=== PATIENT | female | born 1950 | race Caucasian/White ===

== ENCOUNTER 2023-02-24 09:51 | Outpatient (RCR) | payer MEDICARE, SELFPAY | END 2023-09-25 08:00 | disposition home or self-care (01) | LOC: PT 09:51 | PROVIDERS: Visit Provider Orthopaedic Surgery Orthopaedic Trauma | DX: S86.012D Strain of left Achilles tendon, subsequent encounter (principal); G62.9 Polyneuropathy, unspecified | CPT/HCPCS: 97010; 97035; 97110; 97112; 97140; G0283 ==

== ENCOUNTER 2023-09-29 10:27 | Outpatient (OUT) | payer MEDICARE, SELFPAY ==
--- OUTSIDE RECORDS SUMMARY | 2023-09-29 10:35 | XMS_ITS | CCD ---
Author Name Unknown Address [address] [place] [address] Organization [facility] Care Team Providers Care Lead Painter Name Role Phone Jade Childs Unavailable ALIA ., DR TERRI Lawson Admitting Unavailable ROJO ., DR TERRI Lawson Attending Unavailable ROJO ., DR TERRI Lawson Consulting Unavailable ROJO ., DR TERRI Lawson Primary Care Unavailable ROJO ., DR TERRI Lawson Primary Care Unavailable JADE CHILDS Attending Unavailable JADE CHILDS Admitting Unavailable ROJO ., DR TERRI Lawson Primary Care Unavailable HAY ., DR GORMAN Admitting Unavailable HAY ., DR GORMAN Attending Unavailable HAY ., DR GORMAN Consulting Unavailable STRAWSER, TARAS Consulting Unavailable ROJO ., DR TERRI Lawson Admitting Unavailable ROJO ., DR TERRI Lawson Attending Unavailable ROJO ., DR TERRI Lawson Consulting Unavailable ROJO ., DR TERRI Lawson Primary Care Unavailable LUBNA, DR MANNY Mckeon Consulting Unavailable ROJO ., DR TERRI Lawson Admitting Unavailable ROJO ., DR TERRI Lawson Attending Unavailable ROJO ., DR TERRI Lawson Consulting Unavailable ROJO ., DR TERRI Lawson Primary Care Unavailable LUBNA, DR MANNY Mckeon Consulting Unavailable Ana Maria Glasgow Unavailable Deven Bronson Attending Unavailable TERRI ROJO Attending Unavailable Mary Escoto Attending Unavailable Deven Bronson Attending Unavailable Mary Escoto Attending Unavailable Allergies Allergy Classification Reported Allergen(s) Allergy Type Date of Onset Reaction(s) Facility (11 sources) Nalbuphine; Translations: [Nubain] Drug Allergy Unknown [facility] (9 sources) Sulfonamides (Antibiotic) Propensity to adverse reactions Unknown [employer] Other (1 source) bee venom Drug allergy (disorder) [facility] (2 sources) HYDROmorphone; Translations: [Dilaudid] Drug Allergy 07-16-20 [facility] (1 source) Sulfonamides (Antibiotic) Drug allergy (disorder) [facility] (1 source) celecoxib; Translations: [CeleBREX] Drug Allergy [facility] (1 source) Clarithromycin; Translations: [Biaxin] Drug Allergy [facility] (1 source) Nalbuphine; Translations: [nalbuphine] Drug Allergy [facility] (1 source) rofecoxib; Translations: [Vioxx] Drug Allergy [facility] (1 source) sulfabenzamide / Sulfacetamide / sulfathiazole; Translations: [Sulfabenzamide/Mortensen lfacetamide/Sulfat hiazole] Drug Allergy [facility] Medications Current Medications Medication Drug Class(es) Dates Sig (Normalized) Sig (Original) allopurinol 100 mg oral tablet (9 sources) Xanthine Oxidase Inhibitor take 1 tablet by mouth every twenty-four hours Allopurinol 100 MG 1 tablet Orally Once a day Active B12 Fast Dissolve 5000 MCG (8 sources) B12 Fast Dissolv e 5000 MCG as directed Orally Active celecoxib 100 mg oral capsule (3 sources) Nonsteroidal Anti-inflammatory Drug Start: 3 take 1 capsule by mouth every twelve hours CeleBREX 100 MG 1 capsule with food Orally bid for 30 days Mar, Active cyclobenzaprine hydrochloride 5 mg oral tablet (9 sources) Muscle Relaxant Start: 3 take 0.5-1 tablets by mouth every eight hours Cyclobenzaprine HCl 5 MG 1/2 to 1 tab Orally Every 8 hours for 14 days Nov, Active diclofenac sodium 0.01 mg/mg topical gel (4 sources) Nonsteroidal Anti-inflammatory Drug Start: 3 Diclofenac Sodium 1 % apply 1-2 grams to affected area Externally Four times a day for 30 days January, Active gabapentin 100 mg oral capsule (1 source) Anti-epileptic Agent Start: 3 take 1 capsule by mouth every eight hours Gabapentin 100 MG 1 capsule Orally three times a day for 30 days Aug, Active hydroCHLOROthiazide 25 mg / lisinopril 20 mg oral tablet (9 sources) Thiazide Diuretic, Angiotensin Converting Enzyme Inhibitor take 1 tablet by mouth every twenty-four hours Lisinopril-hydroCHL OROthiazide 20-25 MG 1 tablet Orally Once a day for 30 day(s) Active meloxicam 15 mg oral tablet (18 sources) Nonsteroidal Anti-inflammatory Drug Start: 9 take 1 tablet by mouth every twenty-four hours Meloxicam 15 MG 1 tablet Orally Once a day for 90 days Dec, Active metFORMIN hydrochloride 500 mg oral tablet (9 sources) Biguanide take 1 tablet by mouth every twenty-four hours metFORMIN HCl 500 MG 1 tablet with a meal Orally Once a day for 30 day(s) Active Multi For Her - (9 sources) Multi For Her - as directed Orally Active oxybutynin chloride 5 mg oral tablet (9 sources) Cholinergic Muscarinic Antagonist take 1 tablet by mouth every twenty-four hours oxyBUTYnin Chloride 5 MG 1 tablet Orally qd for 30 day(s) Active pantoprazole 40 mg delayed release oral tablet (9 sources) Proton Pump Inhibitor take 1 tablet by mouth every twenty-four hours Pantoprazole Sodium 40 MG 1 tablet Orally Once a day Active vitamin b12 5 mg disintegrating oral tablet (1 source) Vitamin B12 B12 Fast Dissolv e 5000 MCG as directed Orally Active Completed/Discontinued Medications Medication Drug Class(es) Dates Sig (Normalized) Sig (Original) acetaminophen 325 mg / oxyCODONE hydrochloride 5 mg oral tablet (9 sources) Opioid Agonist Start: 12-28-2018 take 1-2 tablets by mouth every four to six hours as needed Percocet 5-325 MG 1-2 tablet as needed Orally every 4-6 hrs for 7 days Dec, Not-Taking/PRN Aspir-81 81 MG (9 sources) take 1 tablet by mouth once daily as needed Aspir-81 81 MG 1 tablet Orally Once a day for 30 day(s) Not-Taking/PRN take 1 tablet by mouth once leticia y Aspir-81 81 MG 1 tablet Orally Once a day for 30 day(s) Not-Taking baclofen 5 mg oral tablet (5 sources) gamma-Aminobutyric Acid-ergic Agonist Start: 01-16-2019 take 1 tablet by mouth three times daily at mealtime as needed Baclofen 5 MG 1 tablet with food or milk Orally Three times a day prn Dec, Not-Taking ciprofloxacin 500 mg oral tablet (5 sources) Quinolone Antimicrobial take 1 tablet by mouth every twelve hours Cipro 500 MG 1 tablet Orally every 12 hrs for 10 day(s) Not-Taking psyllium 525 mg oral capsule (9 sources) take 2 capsules by mouth every eight hours Metamucil 0.52 GM 2 capsules with 8 ounces of liquid Orally Three times a day for 30 day(s) Not-Taking/PRN Metamucil 0.52 G M 2 capsules with 8 ounces of liquid Orally Three times a day for 30 day(s) Not-Taking Problems Active Problems Problem Classification Problem Date Documented Date Episodic/Chronic Diabetes mellitus with complications (1 source) Type 2 diabetes mellitus with unspecified complications; Translations: [TYPE 2 DM W/UNS COMPLICATIONS] Onset: 09-11-20 Chronic Diabetes mellitus without complication (1 source) Type 2 diabetes mellitus without complications; Translations: [TYPE 2 DM WITHOUT COMPLICATIONS] Onset: 11-22-19 Chronic Disorders of lipid metabolism (1 source) Pure hypercholesterolemia, unspecified; Translations: [PURE HYPERCHOLESTEROLEMIA UNSPEC] Onset: 09-11-20 Chronic E Codes: Natural/environment (1 source) Other and unspecified overexertion or strenuous movements or postures, initial encounter; Translations: [OTH AND UNS OVREXRT/STRN MVMT/POS INT] Onset: 11-22-19 Episodic Essential hypertension (1 source) Essential (primary) hypertension; Translations: [ESSENTIAL PRIMARY HYPERTENSION] Onset: 11-22-19 Chronic Menopausal disorders (1 source) Unspecified menopausal and perimenopausal disorder; Translations: [UNS MENOPAUSAL PERIMENOPAUSAL D/O] Onset: 01-14-20 Chronic Osteoarthritis (9 sources) Osteoarthritis of hip; Translations: [Unilateral primary osteoarthritis, left hip] Chronic Other aftercare (1 source) intermediate card tender (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) use of oral hypoglycemic drugs; Translations: [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 LUMBER USE ORAL HYPOGLYCEMIC DX] Onset: 11-22-19 Episodic Other aftercare (1 source) Other alf (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; Translations: [OTH LONG-TERM CURRENT DRUG THERAPY] Onset: 11-22-19 Episodic Other connective tissue disease (9 sources) History of repair of hip joint; Translations: [Presence of left artificial hip joint] Chronic Other connective tissue disease (9 sources) History of total hip arthroplasty; Translations: [Presence of left artificial hip joint] Chronic Other connective tissue disease (9 sources) History of total knee arthroplasty; Translations: [Presence of left artificial knee joint] Chronic Other connective tissue disease (4 sources) Achilles tendinitis, right leg Episodic Other gastrointestinal disorders (1 source) Irritable bowel syndrome without diarrhea; Translations: [IRRITABLE BOWEL SYND W/O DIARRHEA] Onset: 11-22-19 Chronic Other injuries and conditions due to external causes (1 source) Unspecified injury of left Achilles tendon, initial encounter; Translations: [UNS INJ LT ACHILLES TENDON INITIAL] Onset: 11-22-19 Episodic Other liver diseases (1 source) Fatty (change of) liver, not elsewhere classified; Translations: [FATTY CHANGE LIVER NEC] Onset: 11-22-19 Chronic Other liver diseases (1 source) Unspecified cirrhosis of liver; Translations: [UNSPECIFIED CIRRHOSIS OF LIVER] Onset: 11-22-19 Chronic Other nervous system disorders (3 sources) Neuropathy; Translations: [Polyneuropathy, unspecified] Chronic Other nervous system disorders (3 sources) Polyneuropathy, unspecified Chronic Other non-traumatic joint disorders (4 sources) Pain in left ankle and joints of left foot; Translations: [PAIN IN LEFT ANKLE] Onset: 11-21-19 Episodic Other nutritional; endocrine; and metabolic disorders (1 source) Metabolic syndrome; Translations: [METABOLIC SYNDROME] Onset: 11-22-19 Chronic Residual codes; unclassified (1 source) Obstructive sleep apnea (adult) (pediatric); Translations: [OBSTRUCTIVE SLEEP APNEA] Onset: 11-22-19 Chronic Residual codes; unclassified (1 source) Acquired absence of other specified parts of digestive tract; Translations: [ACQ ABSENCE OTH PART DIGESTV TRACT] Onset: 11-22-19 Episodic Rheumatoid arthritis and related disease (4 sources) Inflammatory polyarthropathy; Translations: [INFLAMMATORY POLYARTHROPATHY] Onset: 09-07-20 Chronic Sprains and strains (12 sources) Strain of right Achilles tendon, initial encounter; Translations: [Strain of left Achilles tendon, subsequent encounter] Onset: 12-30-19 Episodic Past or Other Problems Problem Classification Problem Date Documented Da te Episodic/Chronic Nonmalignant breast conditions (1 source) Unspecified lump in the left breast, upper inner quadrant; Translations: [UNS LUMP IN LT BREAST UPR INR QUAD] Onset: 01-14-2022 Episodic Other screening for suspected conditions (not mental disorders or infectious disease) (9 sources) Other abnormal and inconclusive findings on diagnostic imaging of breast; Translations: [Encounter for screening mammogram for malignant neoplasm of breast] Onset: 01-08-2022 Episodic Results Test Name Value Interpretation Reference Range Facil ity Pre-Visit Planningon 023 Pre-Visit Planning - From: Jodi Scott RN To: Deven Bronson MD; Sent: 07/29/2023 10:55:23 EDT Subject: Pre-Visit Planning Due Date/Time: 07/29/2023 10:55:00 EDT Caller Name: DAKSHA DELGADO; Caller Number: Wayne , M Ok Dr. Bronson, *Based on your response below, can you please update the chronic problem list and address during this visit if appropriate?* During a pre-visit planning chart review, I noted the following documentation in the medical record: Problem list- Diabetes mellitus type II, controlled, Pre-existing type 1 diabetes mellitus Based on your medical judgment, can you further clarify the following since there is conflicting data on if type 1 or type 2? -Type 2 diabetes mellitus -Type 1 diabetes mellitus -Other (please specify): I can update the problem list with your specified response if you would like. In responding to this request, please exercise your independent professional judgement. The fact that a question is asked does not imply that any particular answer is desired or expected. If you have any questions, please feel free to contact me at extension [phone]. Thank you! NICOLÁS ReddyN, RN, CCM, CCDS, CCDS-O From: Deven Bronson MD To: Jodi Scott RN; Sent: 08/01/2023 11:51:17 EST Subject: RE: Pre-Visit Planning Caller Name: DAKSHA DELGADO; Caller Number: Wayne , M Its type 2. Thank you Normal [address] [place] [address] Family Medicine Office/Clini c Noteon 07-04-2023 Family Medicine Office/Clinic Note Chief Complaint Subsequent Medicare Wellness History of Present Illness I was in the office and available for consultation and to provide direct supervision at the time of this visit. I have provided supervision of the care team and have reviewed this chart and office note and agree with the plan of care. Covid-19, MERS, Ebola Screen *Contact With Person With Highly Contagious Disease Like Ebola/MERS/COVID-19 AND Have One or More of the Symptoms Below : No *Travel to a Country With Wide-Spread Ebola/MERS/COVID-19 in the Past 21 Days AND Have One or More of the Symptoms Below : No Patient Reported Covid-19 Testing : No *Verify Droplet, Contact Precautions for Ebola (Reference for CDC) : N/A *Verify Airborne, Droplet Precautions for MERS/COVID-19 : N/A Fam Pedroza 06/29/2023 13:13 EDT Medicare/Medicaid Summary Systolic Blood Pressure : 120 mmHg Diastolic Blood Pressure : 84 mmHg Blood Pressure Location : Left arm Blood Pressure Position : Sitting O2 Sat Resting/Exertion Alpha : Resting Peripheral Pulse Rate : 92 bpm SpO2 : 95 % Fam Pedroza 06/29/2023 14:00 EDT Chief Complaint : Subsequent Medicare Wellness Patient Counseled : Nutrition, Physical activity, Elevated BMI Height/Length Measured : 165 cm(Converted to: 5 ft 5 in, 64.96 in) Weight Measured : 106.5 kg(Converted to: 234 lb 13 Ounces, 234.792 lb) Body Mass Index Measured : 39.12 kg/m2 Height in Inches : 65 in Weight in Pounds : 234.3 lb Waist Measurement : 114 cm(Converted to: 45 in) Pain Present : No actual or suspected pain Fam Pedroza 06/29/2023 13:13 EDT Hearing and Vision Screening FT FT Whisper Test Comments : No issues or concerns Fam Pedroza 06/29/2023 13:13 EDT Vision Screen Comments : wears corrective lenses for driving, follows with Fam Triana 06/29/2023 14:00 EDT Advance Directive FT Advance Directive : No Patient Wishes to Receive Further Information on Advance Directives : Yes Organ Donation Consent : No Fam Pedroza 06/29/2023 13:13 EDT Procedures / Surgeries FT - Procedure History (As Of: 06/29/2023 14:02:51 EDT) Procedure Dt/Tm: 03/20/2020 ; Provider: Medhat BOLANOS MD; Anesthesia Minutes: 0 ; Procedure Name: Cystoscopy and retrograde pyelography ; Procedure Minutes: 0 ; Comments: 03/20/2020 15:21 EDT - Delores RODRIGUEZ, [place] right ; Last Reviewed Dt/Tm: 06/29/2023 14:01:50 EDT Anesthesia Minutes: 0 ; Procedure Name: Total knee arthroplasty ; Procedure Minutes: 0 ; Comments: 03/20/2020 7:18 Leigh Ann Raya RN left ; Last Reviewed Dt/Tm: 06/29/2023 14:01:50 EDT Anesthesia Minutes: 0 ; Procedure Name: Total knee arthroplasty ; Procedure Minutes: 0 ; Comments: 03/20/2020 7:18 Leigh Ann Raya RN right ; Last Reviewed Dt/Tm: 06/29/2023 14:01:50 EDT Anesthesia Minutes: 0 ; Procedure Name: Tonsillectomy and adenoidectomy ; Procedure Minutes: 0 ; Last Reviewed Dt/Tm: 06/29/2023 14:01:50 EDT Anesthesia Minutes: 0 ; Procedure Name: Arthroplasty of the hip ; Procedure Minutes: 0 ; Comments: 03/20/2020 7:18 CESAR Gibson RN, Leigh Ann Asif left ; Last Reviewed Dt/Tm: 06/29/2023 14:01:50 EDT Anesthesia Minutes: 0 ; Procedure Name: H/O: tubal ligation ; Procedure Minutes: 0 ; Last Reviewed Dt/Tm: 06/29/2023 14:01:50 EDT Anesthesia Minutes: 0 ; Procedure Name: Appendectomy ; Procedure Minutes: 0 ; Last Reviewed Dt/Tm: 06/29/2023 14:01:50 EDT Anesthesia Minutes: 0 ; Procedure Name: Abdominal hysterectomy ; Procedure Minutes: 0 ; Last Reviewed Dt/Tm: 06/29/2023 14:01:50 EDT Anesthesia Minutes: 0 ; Procedure Name: Gall bladder ; Procedure Minutes: 0 ; Last Reviewed Dt/Tm: 06/29/2023 14:01:50 EDT Family History Family History (As Of: 06/29/2023 14:02:51 EDT) Brother: Relation: Brother ; Gender: Male ; Nomenclature: Aneurysm ; Value: Positive Father: Relation: Father ; Gender: Male ; Nomenclature: Hyperlipidemia ; Value: Positive Nomenclature: Stroke ; Value: Positive Nomenclature: Hypertension ; Value: Positive Mother: Relation: Mother ; Gender: Female ; Nomenclature: Stroke ; Value: Positive Nomenclature: Dementia ; Value: Positive Medicare/Medicaid Social History FT Social History (As Of: 06/29/2023 14:02:51 EDT) Alcohol: Denies Alcohol Use Comments: 06/29/2023 13:21 - Fam Pedroza: denies (Last Updated: 06/29/2023 13:21:29 EDT by Fam Pedroza) Tobacco: Denies Tobacco Use Never (less than 100 in lifetime) Tobacco Use:. Never Smokeless Tobacco Use:. (Last Updated: 02/02/2023 13:50:46 EDT by Shannon León LPN) Never (less than 100 in lifetime) Tobacco Use:. Household tobacco concerns: No. Comments: 06/29/2023 13:21 - Fam Pedroza: denies (Last Updated: 06/29/2023 13:21:46 EDT by Fam Pedroza) Substance Abuse: Denies Substance Abuse (Last Updated: 03/12/2020 13:21:06 EDT by Arlet RODRIGUEZ, [facility] ) Health Risk Assessment FT HRA little interest or pleasure? : No HRA down, de (more content not included)... [facility] Comment on above: Result Comment: Elec tronically Signed By: Deven Bronson MD\.br\Date and Time Signed: 07/04/23 19:09 EDT\.br\Electronically Co-Signed By: Fam Pedroza\.br\Date and Time Co-Signed: 06/29/23 16:02 EDT [place] 06-30-2023 Screens [id number] 00 [id number] [facility] Ambulatory Visit Summaryon 1 Ambulatory Visit Summary DAKSHA DELGADO Nat :1950 Visit Date:06/29/2023 Ambulatory Visit Instructions Your Diagnosis Annual visit for general adult medical examination without abnormal findings Advanced care planning/counseling discussion Acute DM type 2 causing complication Screening for ischemic heart disease (IHD) Screening mammogram for breast cancer Hypertension Other problems related to lifestyle Feeling of incomplete bladder emptying Morbid obesity due to excess calories BMI 39.0-39.9,adult Tests Performed MA Mamm Screen w/CAD if perf and 3D Cameron -- Results Pending -- Please visit your patient portal for your results or contact your primary care physician. Your Care Team Attending Physician - Mary Trotter Primary Care Physician - Mary Trotter This Is Your Medications List Misc Prescription (Blood pressure cuff-wrist) Misc Prescription (Misc DME Prescription) Misc Prescription (Misc DME Prescription) Misc Prescription (TEST STRIPS AND LANCETS) Non-Formulary Medication (equate sleep aid) allopurinol (allopurinol 100 mg Tab) ascorbic acid (ascorbic acid 1000 mg oral tablet) cyanocobalamin (cyanocobalamin 100 mcg oral tablet) glipiZIDE (glipiZIDE 5 mg Tab) lisinopril (lisinopril 20 mg Tab) meloxicam (meloxicam 15 mg Tab) metformin (metformin 500 mg Tab) oxybutynin (oxybutynin 5 mg ER Tab) pantoprazole (Pantoprazole [address] Tab) Procedures Performed Cystoscopy and retrograde pyelography (03/20/2020), Abdominal hysterectomy, Appendectomy, Arthroplasty of the hip, Gall bladder, H/O: tubal ligation, Tonsillectomy and adenoidectomy, Total knee arthroplasty, Total knee arthroplasty. Discharge Vitals Heart Rate (Peripheral) 92 Blood Pressure 120/84 Height 165 cm Height 65 in Weight 106.5 kg Weight 234.3 lb BMI 39.12 What to do next You Need to Complete the Following HCV Antibody RFX to Quant PCR, Blood, Routine collect, 06/29/23, Order for future visit, Lab Collect, Other problems related to lifestyle Invalid Interpretation Code Hypertension [facility] Ambulatory Visit Summary DAKSHA DELGADO :1950 Visit Date:06/29/2023 Ambulatory Visit Instructions Your Diagnosis Annual visit for general adult medical examination without abnormal findings Advanced care planning/counseling discussion Acute DM type 2 causing complication Screening for ischemic heart disease (IHD) Screening mammogram for breast cancer Hypertension Other problems related to lifestyle Feeling of incomplete bladder emptying Morbid obesity due to excess calories BMI 39.0-39.9,adult Tests Performed MA Mamm Screen w/CAD if perf and 3D Cameron -- Results Pending -- Please visit your patient portal for your results or contact your primary care physician. Your Care Team Attending Physician - Mary Trotter Primary Care Physician - Mary Trotter This Is Your Medications List Misc Prescription (Blood pressure cuff-wrist) Misc Prescription (Misc DME Prescription) Misc Prescription (Misc DME Prescription) Misc Prescription (TEST STRIPS AND LANCETS) Non-Formulary Medication (equate sleep aid) allopurinol (allopurinol 100 mg Tab) ascorbic acid (ascorbic acid 1000 mg oral tablet) cyanocobalamin (cyanocobalamin 100 mcg oral tablet) glipiZIDE (glipiZIDE 5 mg Tab) lisinopril (lisinopril 20 mg Tab) meloxicam (meloxicam 15 mg Tab) metformin (metformin 500 mg Tab) oxybutynin (oxybutynin 5 mg ER Tab) pantoprazole (Pantoprazole [address] Tab) Procedures Performed Cystoscopy and retrograde pyelography (03/20/2020), Abdominal hysterectomy, Appendectomy, Arthroplasty of the hip, Gall bladder, H/O: tubal ligation, Tonsillectomy and adenoidectomy, Total knee arthroplasty, Total knee arthroplasty. Discharge Vitals Heart Rate (Peripheral) 92 Blood Pressure 120/84 Height 165 cm Height 65 in Weight 106.5 kg Weight 234.3 lb BMI 39.12 What to do next You Need to Complete the Following HCV Antibody RFX to Quant PCR, Blood, Routine collect, 06/29/23, Order for future visit, Lab Collect, Other problems related to lifestyle Invalid Interpretation Code Hypertension [facility] Patient Educationon 06-29-20 Patient Education Cardiovascular Hypertension, Adult High blood pressure (hypertension) is when the force of blood pumping through the arteries is too strong. The arteries are the blood vessels that carry blood from the heart throughout the body. Hypertension forces the heart to work harder to pump blood and may cause arteries to become narrow or stiff. Untreated or uncontrolled hypertension can lead to a heart attack, heart failure, a stroke, kidney disease, and other problems. A blood pressure reading consists of a higher number over a lower number. Ideally, your blood pressure should be below 120/80. The first ( top ) number is called the systolic pressure. It is a measure of the pressure in your arteries as your heart beats. The second ( bottom ) number is called the diastolic pressure. It is a measure of the pressure in your arteries as the heart relaxes. What are the causes? The exact cause of this condition is not known. There are some conditions that result in high blood pressure. What increases the risk? Certain factors may make you more likely to develop high blood pressure. Some of these risk factors are under your control, including: ? Smoking. ? Not getting enough exercise or physical activity. ? Being overweight. ? Having too much fat, sugar, calories, or salt (sodium) in your diet. ? Drinking too much alcohol. Other risk factors include: ? Having a personal history of heart disease, diabetes, high cholesterol, or kidney disease. ? Stress. ? Having a family history of high blood pressure and high cholesterol. ? Having obstructive sleep apnea. ? Age. The risk increases with age. What are the signs or symptoms? High blood pressure may not cause symptoms. Very high blood pressure (hypertensive crisis) may cause: ? Headache. ? Fast or irregular heartbeats (palpitations). ? Shortness of breath. ? Nosebleed. ? Nausea and vomiting. ? Vision changes. ? Severe chest pain, dizziness, and seizures. How is this diagnosed? This condition is diagnosed by measuring your blood pressure while you are seated, with your arm resting on a flat surface, your legs uncrossed, and your feet flat on the floor. The cuff of the blood pressure monitor will be placed directly against the skin of your upper arm at the level of your heart. Blood pressure should be measured at least twice using the same arm. Certain conditions can cause a difference in blood pressure between your right and left arms. If you have a high blood pressure reading during one visit or you have normal blood pressure with other risk factors, you may be asked to: ? Return on a different day to have your blood pressure checked again. ? Monitor your blood pressure at home for 1 week or longer. If you are diagnosed with hypertension, you may have other blood or imaging tests to help your health care provider understand your overall risk for other conditions. How is this treated? This condition is treated by making healthy lifestyle changes, such as eating healthy foods, exercising more, and reducing your alcohol intake. You may be referred for counseling on a healthy diet and physical activity. Your health care provider may prescribe medicine if lifestyle changes are not enough to get your blood pressure under control and if: ? Your systolic blood pressure is above 130. ? Your diastolic blood pressure is above 80. Your personal target blood pressure may vary depending on your medical conditions, your age, and other factors. Follow these instructions at home: Eating and drinking ? Eat a diet that is high in fiber and potassium, and low in sodium, added sugar, and fat. An example of this eating plan is called the DASH diet. DASH stands for Dietary Approaches to Stop Hypertension. To eat this way: ? Eat plenty of fresh fruits and vegetables. Try to fill one half of your plate at each meal with fruits and vegetables. ? Eat whole grains, such as whole-wheat pasta, brown rice, or whole-grain bread. Fill about one fourth of your plate with whole grains. ? Eat or drink low-fat dairy products, such as skim milk or low-fat yogurt. ? Avoid fatty cuts of meat, processed or cured meats, and poultry with skin. Fill about one fourth of your plate with lean proteins, such as fish, chicken without skin, beans, eggs, or tofu. ? Avoid pre-made and processed foods. These tend to be higher in sodium, added sugar, and fat. ? Reduce your daily sodium intake. Many people with hypertension should eat less than 1,500 mg of sodium a day. ? Do not drink alcohol if: ? Your health care provider tells you not to drink. ? You are , may be , or are planning to become . ? If you drink alcohol: ? Limit how much you have to: ? 0?1 drink a day for women. ? 0?2 drinks a day for men. ? Know how much alcohol is in your drink. In the [place] one drink equals one 12 oz bottle of beer (355 mL), one 5 oz glass of wine (148 mL), or one 1? oz glass (more content not included)... [facility] Retail - Clinical Noteon Retail - Clinical Note [id number] 0CD:127 [facility] Physician Referralon 023 Physician Referral [id number]. 00CD:127 Normal [place] [facility] Ambulatory Visit Summaryon 0 02-02-2023 Ambulatory Visit Summary DAKSHA DELGADO :1950 Visit Date:02/02/2023 Ambulatory Visit Instructions Your Diagnosis Acute DM type 2 causing complication Hypertension VOGEL (nonalcoholic steatohepatitis) Adhesive capsulitis of left shoulder Your Care Team Attending Physician - TERRI ROJO MD Primary Care Physician - TERRI ROJO MD This Is Your Medications List Misc Prescription (Blood pressure cuff-wrist) Misc Prescription (Misc DME Prescription) Misc Prescription (Misc DME Prescription) Non-Formulary Medication (equate sleep aid) allopurinol (allopurinol 100 mg Tab) ascorbic acid (Vitamin C 1000 mg oral tablet) cyanocobalamin (Vitamin B12) lisinopril (lisinopril 20 mg Tab) meloxicam (meloxicam 15 mg Tab) metformin (metformin 500 mg Tab) multivitamin with minerals (Multivitamins and Minerals) oxybutynin (oxybutynin 5 mg ER Tab) pantoprazole (Pantoprazole [address] Tab) [Image Removed: STOP]Stop taking these medications aspirin (aspirin 81 mg oral tablet) Procedures Performed Cystoscopy and retrograde pyelography (03/20/2020), Abdominal hysterectomy, Appendectomy, Arthroplasty of the hip, H/O: tubal ligation, Tonsillectomy and adenoidectomy, Total knee arthroplasty, Total knee arthroplasty. Discharge Vitals Heart Rate (Peripheral) 107 Respiratory Rate 20 Blood Pressure 170/96 Height 167.64 cm Height 66 in Weight 111.4 kg Weight 245.08 lb BMI 39.64 What to do next Someone Will Contact You Regarding These Appointments [facility] [place], Orthopaedics, DR JACKIE BENÍTEZ FROZEN SHOULDER, 02/02/23 14:46:00 EDT, Adhesive capsulitis of left shoulder Medications What How Much When Instructions Changed allopurinol (allopurinol 100 mg Tab) 1 Tablets By Mouth Every day Pickup at [facility] Unchanged ascorbic acid (Vitamin C 1000 mg oral tablet) 1 Tablets By Mouth Every day Unchanged cyanocobalamin (Vitamin B12) 1 tab By Mouth Every day Unchanged lisinopril (lisinopril 20 mg Tab) 1 Tablets By Mouth 2 times a day Unchanged meloxicam (meloxicam 15 mg Tab) 1 Tablets By Mouth Every day Unchanged metformin (metformin 500 mg Tab) 1 Tablets By Mouth Every day Unchanged Misc Prescription (Blood pressure cuff-wrist) See instructions As Directed-Check blood pressure 1-2 hours after taking BP medication. Unchanged Misc Prescription (Misc DME Prescription) See instructions unilet lancets use to test blood sugars once a day Unchanged Misc Prescription (Misc DME Prescription) See instructions unilet test strips Test once a day Dx E 11.8 Unchanged multivitamin with minerals (Multivitamins and Minerals) 1 tab By Mouth Every day Unchanged Non-Formulary Medication (equate sleep aid) 1 tab By Mouth Every day as needed for Insomnia Unchanged oxybutynin (oxybutynin 5 mg ER Tab) 1 Tablets By Mouth Every day Unchanged pantoprazole (Pantoprazole [address] Tab) 1 Tablets By Mouth 2 times a day Pharmacy Information [id number]: [address] [place], [place] [id number] [phone] What When Comments Stop Taking aspirin (aspirin 81 mg oral tablet) Every day Allergies Sulfabenzamide/Sulface tamide/Sulfathiazole (Unknown) nalbuphine (Unknown) Problems Ongoing - Any problem that you are currently receiving treatment for. Anticoagulated Asymptomatic microscopic hematuria Back pain BMI 39.0-39.9,adult Body mass index [BMI] 30.0-30.9, adult Class 1 obesity due to excess calories with body mass index (BMI) of 30.0 to 30.9 in adult Dysuria Feeling of incomplete bladder emptying Frequency of urination Kidney stone Lower abdominal pain Microscopic hematuria Other urethral stricture, female Post-void dribbling Retention of urine Urge incontinence Urgency of urination Weak urine stream Historical - Any problem that you are no longer receiving treatment for. Abdominal tenderness Flank pain Gross hematuria HTN - Hypertension Incomplete bladder emptying Normal [facility] Family Medicine Office/Clini c Noteon 02-02-2023 Family Medicine Office/Clinic Note Chief Complaint med refills and doesn't feel well hurts all over HPI Staff Follow up chronic conditions and meds check Health Maintenance: Colonoscopy: 5 years ago Dexa: 01/08/22 Mammo: 01/08/22 Pap: no longer gets them Last Labs: 09/07/22 covid: UTD questions/concerns: nneds refills of lancets, test strips, pantoprazole, allopurinol, meloxicam,lisinopril oxybutynin, glipizide and metformin all 90 days and 3 refills Just hurts all over and doesn't feel well History of Present Illness BAD HEADACHE SINCE LAST NIGHT ABND SORE NECK. TYLBEOL NO HELP. `HTN DIVERTICULAR DISEASE VOGEL ARTHRITIS NIDDM CHRON'S DX Review of Systems PHQ Score Initial Depression Screen Score: 0 Constitutional: no fever, no chills, no sweats, no weakness Skin: no Jaundice, no rash, no lesions, nopetechiae ENMT: no ear pain, no sore throat, no congestion, no hoarseness Respiratory: no shortness of breath, no cough, no orthopnea, no wheezing Cardiovascular: no chest pain, no palpitations, no edema Gastrointestinal: no nausea, no vomiting, no diarrhea, no GI bleeding Genitourinary: no dysuria, no hematuria, no discharge, no pain Musculoskeletal: no back pain, no trauma severe headache Neurologic: no headache, no dizziness, no numbness, no weakness Psychiatric: no sleeping problems, no irritability, no mood swings/depression. Additional ROS info: Except as noted in the above Review of Systems and in the History of Present Illness all other systems have been reviewed and are negative or noncontributory. Physical Exam Vitals & Measurements HR: 107(Peripheral) RR: 20 BP: 170/96 SpO2: 98% HT: 66 in HT: 167.64 cm WT: 111.4 kg WT: 245.08 lb BMI: 39.64 General: alert, no acute distress Skin: warm, dry Head: no trauma, normocephalic Neck: Trachea midline, no adenopathy, no tenderness Eye: normal conjunctiva, sclera clear ENMT: TM's clear, oral mucosa moist, no pharyngeal erythema or exudate Cardiovascular: regular rate and rhythm, normal peripheral perfusion Respiratory: Lungs CTA, respirations non labored Chest wall: no deformity. Gastrointestinal: soft, non distended, no tenderness, no guarding. Back: No tenderness, Normal ROM, Normal alignment. Extremities: no deformity, no trauma frozen shoulder on left Neurological: oriented x 4, LOC appropriate for age, CN II-XII intact, motor strength equal & normal bilaterally, sensation equal & normal bilaterally, speech normal Psychiatric: cooperative, affect appropriate for age, normal judgement, normal psychiatric thoughts. Assessment/Plan refer to dr MEJIA FOR FROZEN LEFT SHOULDER. DIET AND EXERCISE EXPLAINED ROM EXERCISE FOR SHOULDER EXPLAINED. MEDS REVIEWED AND EXPLAINED. PREVENTIVE MEDICINE EXPLAINED HEAT AND STRETCHING FOR NECK PAIN DIET AND EXERCISE FOR VOGEL EXPLAINED RTO PRN EXPLAINBED 1. Acute DM type 2 causing complication (E11.8: Type 2 diabetes mellitus with unspecified complications) Ordered: CBC w/ Auto Diff Comprehensive Metabolic Panel HgbA1c 2. Hypertension (I10: Essential (primary) hypertension) Ordered: CBC w/ Auto Diff Comprehensive Metabolic Panel HgbA1c 3. VGOEL (nonalcoholic steatohepatitis) (K75.81: Nonalcoholic steatohepatitis (VOGEL)) Ordered: CBC w/ Auto Diff Comprehensive Metabolic Panel HgbA1c Adhesive capsulitis of left shoulder (M75.02: Adhesive capsulitis of left shoulder) Ordered: [facility] [place] Ref[place] Orders: allopurinol, 100 mg = 1 tab(s), Oral, Daily, # 90 tab(s), Refills(s) 3, Pharmacy: [id number], 167.6, cm, 02/02/23 13:51:00 EDT, Height/Length Dosing, 111.4, kg, 02/02/23 13:51:00 EDT, Weight Dosing Body Mass Index (BMI) documented 3008F Current tobacco non-user 1036F Depression Screening Positive 3354F Influenza immunization status assessed 1030F Most recent diastolic blood pressure >=90 mm Hg 3080F Most recent systolic blood pressure >= 140 mm Hg 3077F Patient screen for fall risk: no falls in last year or 1 fall with no injury in last year 1101F Follow-up No qualifying data available Problem List/Past Medical History Ongoing Anticoagulated Asymptomatic microscopic hematuria Back pain BMI 39.0-39.9,adult Body mass index [BMI] 30.0-30.9, adult Class 1 obesity due to excess calories with body mass index (BMI) of 30.0 to 30.9 in adult Dysuria Feeling of incomplete bladder emptying Frequency of urination Kidney stone Lower abdominal pain Microscopic hematuria Other urethral stricture, female Post-void dribbling Retention of urine Urge incontinence Urgency of urination Weak urine stream Historical Abdominal tenderness Flank pain Gross hematuria HTN - Hypertension Incomplete bladder emptying Procedure/Surgical History Cystoscopy and retrograde pyelography (03/20/2020), Abdominal hysterectomy, Appendectomy, Arthroplasty of the hip, H/O: tubal ligation, Tonsillectomy and adenoidectomy, Total knee arthrop (more content not included)... Normal [facility] Comment on above: Result Comment: Elec tronically Signed By: ALIA BIGGS, TERRI Dewitt.rosalva\Date and Time Signed: 02/02/23 14:51 EDT XR FOOT LT MIN 3 VIEWSon XR FOOT LT MIN 3 VIEWS XR FOOT LT MIN 3 VIEWS: HISTORY: Pain in left foot Pain in left foot COMPARISON: None available. TECHNIQUE: 3 radiographic view(s) obtained. FINDINGS: BONES/JOINT SPACES: There is no acute fracture or dislocation. There is moderate degenerative osteoarthrosis of the first metatarsophalangeal joint. There is moderate calcaneal spurring and enthesopathy at the insertion of the Achilles tendon. SOFT TISSUES: There is some soft tissue swelling. IMPRESSION: Soft tissue swelling without a definitive acute fracture. Electronically authenticated by: TARAS WILEY Date: 2022-11-21 01:[address] [facility] MARQUEZ by IFAon 09-09-2022 Antinuclear Antibodies, IFA Negative Normal [facility] Comment on above: Result Comment: Nega tive <1:80 Borderline 1:80 Positive >1:80 ICAP nomenclature: AC-0 For more information about Hep-2 cell patterns use ANApatterns.org, the official website for the International Consensus on Antinuclear Antibody (MARQUEZ) Patterns (ICAP). Performed By: #### A NAIFA ####[facility] [address] [place], [place] [address]BsDr. Marcella Cortes ANTISTREPTOLYSIN O AB (ASO)o n 09-08-2022 Antistreptolysin O Ab 104.5 IU/mL Normal 0.0-200.0 [facility] Comment on above: Performed By: #### A SOAB #### [facility] [address] [place], [place] [address] Dr. Marcella Cortes RHEUMATOID FACTORon 09-08-20 RA Latex Turbid. <10.0 Normal <14.0 [facility] Comment on above: Performed By: #### R F #### [facility] [address] [place] [address] [address] Marcella Cortes CBC AUTO DIFFon 09-07-2022 BASO # 0.0 103/ul Normal 0.0-0.1 [facility] Comment on above: Performed By: #### C BC ####[facility] [address] [place] [address]Dr. Marcella Cortes Basophils/100 WBC (Bld) 0.5 % Normal 0.2-2.0 [facility] Comment on above: Performed By: #### C BC ####[facility] [address] [place] [address]Dr. Marcella Cortes EO # 0.1 103/ul Normal 0.0-0.7 [facility] Comment on above: Performed By: #### C BC ####[facility] [address] [place], [place] [address]Dr. Marcella Cortes Eosinophils/100 WBC (Bld) 1.4 % Normal 0.9-7.0 [facility] Comment on above: Performed By: #### C BC ####[facility] [address] [place], [place] [address]Dr. Marcella Cortes Erythrocyte distribution width (RBC) [Ratio] 12.6 % Normal 11.0-15.0 [facility] Comment on above: Performed By: #### C BC ####[facility] [address] [place], [place] [address]Dr. Marcella Cortes Hematocrit (Bld) [Volume fraction] 37.1 % Normal 36.0-48.0 [facility] Comment on above: Performed By: #### C BC ####[facility] [address] [place], [place] [address]DrPastora Cortes Hemoglobin (Bld) [Mass/Vol] 12.4 g/dL Normal 12.0-16.0 [facility] Comment on above: Performed By: #### C BC ####[facility] [address] [place], [place] [address]Dr. Marcella Cortes IG # 0.03 10e3/ul Normal 0.00-0.03 [facility] Comment on above: Performed By: #### C BC ####[facility] [address] [place] [address]DrPastora Marcella Cortes IG % 0.5 % Normal 0.0-0.5 [facility] Comment on above: Performed By: #### C BC ####[facility] [address] [place], [place] [address]DrPastora Marcella Cortes LYMPH # 2.4 103/ul Normal 1.2-3.8 [facility] Comment on above: Performed By: #### C BC ####[facility] [address] [place], [place] [address]DrPastora Marcella Cortes Lymphocytes/100 WBC (Bld) 36.2 % Normal 20.5-60.0 [facility] Comment on above: Performed By: #### C BC ####[facility] [address] [place], [place] [address]DrPastora Marcella Cortes MANUAL DIFF REQ NO Normal [facility] Comment on above: Performed By: #### C BC ####[facility] [address] [place], [place] [address]DrPastora Marcella Cortes MCH (RBC) [Entitic mass] 30.3 pg Normal 26.7-34.0 [facility] Comment on above: Performed By: #### C BC ####[facility] [address] [place], [place] [address]Dr. Marcella Cortes MCHC (RBC) [Mass/Vol] 33.4 g/dL Normal 29.9-35.2 [facility] Comment on above: Performed By: #### C BC ####[facility] [address] [place], [place] [address]DrPastora Marcella Cortes MCV (RBC) [Entitic vol] 90.7 fL Normal 81.0-99.0 [facility] Comment on above: Performed By: #### C BC ####[facility] [address] [place], [place] [address]DrPastora Marcella Sebastian MONO # 0.4 103/ul Normal 0.3-0.8 [facility] Comment on above: Performed By: #### C BC ####[facility] [address] [place] [id number]. Marcella Cortes Monocytes/100 WBC (Bld) 5.9 % Normal 1.7-12.0 [facility] Comment on above: Performed By: #### C BC ####[facility] [address] [place] [id number]. Marcella Cortes NEUT # 3.7 103/ul Normal 1.4-6.5 [facility] Comment on above: Performed By: #### C BC ####[facility] [address] [place] [address]Dr. Marcella Cortes Neutrophils/100 WBC (Bld) 55.5 % Normal 43.0-75.0 [facility] Comment on above: Performed By: #### C BC ####[facility] [address] [place] [address]Dr. Marcella Cortes Platelet mean volume (Bld) [Entitic vol] 8.7 fL Critically low 9.5-13.5 [facility] Comment on above: Performed By: #### C BC ####[facility] [address] [place] [address]Dr. Marcella Cortes PLT 224 103/ul Normal 150-450 [facility] Comment on above: Performed By: #### C BC ####[facility] [address] [place] [id number]. Marcella Cortes RBC 4.09 106/ul Critically low 4.20-5.40 [facility] Comment on above: Performed By: #### C BC ####[facility] [address] [place] [id number]. Marcella Cortes WBC 6.7 103/ul Normal 4.0-11.0 [facility] Comment on above: Performed By: #### C BC ####[facility] [address] [place] [id number]. Marcella Cortes CRPon 09-07-2022 CRP 0.7 mg/dL Normal <=1.0 [facility] Comment on above: Performed By: #### C RP, URIC, LIPID, CMP #### [facility] [address] [place] [address] [address] Marcella Cortes GLYCOHEMOGLOBIN A1Con 2021 ADA RECOMMENDATION SEE BELOW Normal [facility] Comment on above: Result Comment: ADA RECOMMENDED LIMIT 4.0 - 6.0 ADA THERAPEUTIC TARGET < 7.0 ACTION SUGGESTED > 7.0 Performed By: #### A 1C ####[facility] [address] [place], [place] [address]MvDr. Marcella Cortes Glucose [Mass/Vol] 186 mg/dL Normal [facility] Comment on above: Performed By: #### A 1C ####[facility] [address] [place] [address]Dr. Marcella Cortes HbA1c (Bld) [Mass fraction] 8.1 % Critically high 4.5-6.2 [facility] Comment on above: Performed By: #### A 1C ####[facility] [address] [place] [address]Dr. Marcella Cortes LIPID PROFILEon 09-07-2022 CHOL-HDL RATIO NORM SEE BELOW Normal [facility] Comment on above: Result Comment: 3.3 - 4.4 LOW RISK 4.4 - 7.1 AVERAGE RISK 7.1 - 11.0 MODERATE RISK >11.0 HIGH RISK Performed By: #### C RP, URIC, LIPID, CMP #### [facility] [address] [place] [address] [address] Marcella Cortes Cholesterol [Mass/Vol] 187 mg/dL Normal <=200 [facility] Comment on above: Performed By: #### C RP, URIC, LIPID, CMP #### [facility] [address] [place] [address] [address] Marcella Cortes Cholesterol in HDL [Mass/Vol] 44 mg/dL Normal 40-60 [facility] Comment on above: Performed By: #### C RP, URIC, LIPID, CMP #### [facility] [address] [place] [address] [address] Marcella Cortes Cholesterol in LDL [Mass/Vol] 97.0 mg/dL Normal [facility] Comment on above: Performed By: #### C RP, URIC, LIPID, CMP #### [facility] [address] [place] [address] [address] Marcella Cortes Cholesterol.total/Ch olesterol in HDL [Mass ratio] 4.3 {ratio} Normal [facility] Comment on above: Performed By: #### C RP, URIC, LIPID, CMP #### [facility] [address] [place] [address] [address] Marcella Cortes HDL NORMAL > or = 60 mg/dl - LO W CARDIOVASCULAR RISK <40 mg/dl - HIGH CARDIOVASCULAR RISK Normal [facility] Comment on above: Performed By: #### C RP, URIC, LIPID, CMP #### [facility] [address] [place] [address] [address] Marcella Cortes LDL CALC NORMAL SEE BELOW Normal [facility] Comment on above: Result Comment: <100 mg/dl OPTIMAL 100 - 129 mg/dl NEAR OR ABOVE OPTIMAL 130 - 159 mg/dl BORDERLINE HIGH 160 - 189 mg/dl HIGH >190 mg/dl VERY HIGH Performed By: #### C RP, URIC, LIPID, CMP #### [facility] [address] [place] [address] [address] Marcella Cortes Triglyceride [Mass/Vol] 230 mg/dL Critically high <=150 [facility] Comment on above: Performed By: #### C RP, URIC, LIPID, CMP #### [facility] [address] [place] [address] [address] Marcella Cortes VLDL CALC 46.0 mg/dL Normal [facility] Comment on above: Performed By: #### C RP, URIC, LIPID, CMP #### [facility] [address] [place] [address] Dr. Marcella Cortes PROF 14(COMP METB)on 022 Albumin [Mass/Vol] 3.8 g/dL Normal 3.4-5.0 [facility] Comment on above: Performed By: #### C RP, URIC, LIPID, CMP #### [facility] [address] [place] [address] Dr. Marcella Cortes Albumin/Globulin [Mass ratio] 0.9 {ratio} Normal [facility] Comment on above: Performed By: #### C RP, URIC, LIPID, CMP #### [facility] [address] [place] [address] Dr. Marcella Cortes ALP [Catalytic activity/Vol] 46 U/L Normal 46-116 [facility] Comment on above: Performed By: #### C RP, URIC, LIPID, CMP #### [facility] [address] [place] [address] Dr. Marcella Cortes ALT [Catalytic activity/Vol] 29 U/L Normal 14-59 [facility] Comment on above: Performed By: #### C RP, URIC, LIPID, CMP #### [facility] [address] [place] [address] Dr. Marcella Cortes Anion gap [Moles/Vol] 16.2 mmol/L Normal [facility] Comment on above: Performed By: #### C RP, URIC, LIPID, CMP #### [facility] [address] [place] [address] Dr. Marcella Cortes AST [Catalytic activity/Vol] 20 U/L Normal 15-37 [facility] Comment on above: Performed By: #### C RP, URIC, LIPID, CMP #### [facility] [address] [place] [address] Dr. Marcella Cortes Bilirubin [Mass/Vol] 0.4 mg/dL Normal 0.2-1.0 [facility] Comment on above: Performed By: #### C RP, URIC, LIPID, CMP #### [facility] [address] [place] [address] Dr. Marcella Cortes Calcium [Mass/Vol] 9.2 mg/dL Normal 8.5-10.1 [facility] Comment on above: Performed By: #### C RP, URIC, LIPID, CMP #### [facility] [address] [place] [address] Dr. Marcella Cortes Chloride [Moles/Vol] 98 mmol/L Normal 98-107 [facility] Comment on above: Performed By: #### C RP, URIC, LIPID, CMP #### [facility] [address] [place] [address] [address] Marcella Cortes CO2 [Moles/Vol] 26.1 mmol/L Normal 21.0-32.0 [facility] Comment on above: Performed By: #### C RP, URIC, LIPID, CMP #### [facility] [address] [place] [address] Dr. Marcella Cortes Creatinine [Mass/Vol] 0.84 mg/dL Normal 0.55-1.02 [facility] Comment on above: Performed By: #### C RP, URIC, LIPID, CMP #### [facility] [address] [place] [address] [address] Marcella Cortes EGFR-AF PORTUGUESE >60 Normal >=60 [facility] Comment on above: Performed By: #### C RP, URIC, LIPID, CMP #### [facility] [address] [place] [address] Dr. Marcella Cortes EGFR-NON AF PORTUGUESE >60 Normal >=60 [facility] Comment on above: Performed By: #### C RP, URIC, LIPID, CMP #### [facility] [address] [place] [address] Dr. Marcella Cortes Globulin (S) [Mass/Vol] 4.0 g/dL Normal [facility] Comment on above: Performed By: #### C RP, URIC, LIPID, CMP #### [facility] [address] [place] [address] Dr. Marcella Cortes Glucose [Mass/Vol] 163 mg/dL Critically high 74-106 [facility] Comment on above: Performed By: #### C RP, URIC, LIPID, CMP #### [facility] [address] [place] [address] Dr. Marcella Cortes Potassium [Moles/Vol] 4.3 mmol/L Normal 3.5-5.1 [facility] Comment on above: Performed By: #### C RP, URIC, LIPID, CMP #### [facility] [address] [place] [address] Dr. Marcella Cortes Protein [Mass/Vol] 7.8 g/dL Normal 6.4-8.2 [facility] Comment on above: Performed By: #### C RP, URIC, LIPID, CMP #### [facility] [address] [address] [address] Marcella Cortes Sodium [Moles/Vol] 136 mmol/L Normal 136-145 [facility] Comment on above: Performed By: #### C RP, URIC, LIPID, CMP #### [facility] [address] [address] [address] Marcella Cortes Urea nitrogen [Mass/Vol] 15.0 mg/dL Normal 7.0-18.0 [facility] Comment on above: Performed By: #### C RP, URIC, LIPID, CMP #### [facility] [address] [address] [address] Marcella Cortes Urea nitrogen/Creatinine [Mass ratio] 17.9 mg/mg Normal [facility] Comment on above: Performed By: #### C RP, URIC, LIPID, CMP #### [facility] [address] [place] [address] Dr. Marcella Cortes URIC ACID SERUMon 09-07-2022 Urate [Mass/Vol] 7.4 mg/dL Critically high 2.6-6.0 [facility] Comment on above: Performed By: #### C RP, URIC, LIPID, CMP #### [facility] [address] [place] [address] CARDIAC SCORINGon 022 CT CARDIAC SCORING Addendum Begins Patient Name: DAKSHA DELGADO ADDENDUM: Technical: The following is to serve as an over-read for an unenhanced cardiac CT, to evaluate the extra vascular structures. Contiguous unenhanced CT sections are performed from the level the pranav to the upper abdomen. Findings: The visualized portions of both lungs are clear aside from linear atelectasis in the anterior lower lobes.. There is no sign of pathologic lymph node enlargement. There is no pericardial or pleural effusion. Images through the upper abdomen are unremarkable aside from fatty metamorphosis of the liver. There is a 2 mm calcified granuloma in the spleen superiorly.. The visualized osseous and soft tissue structures of the chest wall are intact. Impression: Fatty metamorphosis of the liver. Linear bibasilar atelectasis. The extra vascular structures are otherwise unremarkable. Electronically signed by: MACO LUNA MD Addendum Ends Patient Name: DAKSHA DELGADO STUDY: CT CARDIAC SCORING; 03/17/2022 3:13 pm INDICATION: I10 Essential (primary) hypertension E11.8 Type 2 diabetes mellitus with unspecified complications . COMPARISON: None. ACCESSION NUMBER(S): [id number] ORDERING CLINICIAN: TERRI ROJO TECHNIQUE: Using prospective ECG gating, CT scan of the coronary arteries was performed without intravenous contrast. Coronary calcium scoring was performed according to the method of Agatston. CT Dose-Length Product (DLP): 75.8 mGy*cm CT Dose Reduction Employed: Yes, prospective gating, iterative reconstruction. FINDINGS: The score and distribution of calcium in the coronary arteries is as follows: LM 0 LAD 80 LCx 0 RCA 31 Total 111 The visualized ascending thoracic aorta measures 3.9 cm in diameter. The heart is normal in size. No pericardial effusion is present. The main pulmonary artery, right and left pulmonary artery are normal in size. IMPRESSION: 1. Coronary artery calcium score of 111*. 2. MANZO 71st percentile for age, gender, and race in asymptomatic patients. *Coronary Artery Agatston score Score risk Very low 1-99 Mildly increased 100-299 Moderately increased >300 Moderate to severely increased >800 Sanna et al. JCCT 2016 (http://dx.doi.org/10. 1016/j.jcct.2016.11.00 3) MANZO Percentile In general, greater than 75th percentile for age, gender, and race is considered to be a higher relative risk and higher lifetime risk condition. Greater than 75th percentile=moderate to severely increased relative risk irrespective of the score. Advise using MANZO 10 year CHD risk calculator below for better discrimination of risk. MANZO 10-Year CHD Risk with Coronary Artery Calcification can be calcuate using link below https://www.manzo-nhlbi .org/MESACHDRisk/MesaR iskScore/RiskScore.asp x Logan agarwal al. JACC 2015 (http://dx.doi.org/10. 1016/j.j acc.2015.08.035) Reading Robot Operator: Dr. Jewel Vincent, Date: 03/18/2022 10:08 am Electronically signed by: MACO LUNA MD Normal [facility] US BREAST LEFT LIMITEDon US BREAST LEFT LIMITED Patient: DAKSHA DELGADO. Exam Date: 01/13/2022 : 1950 Gender:F Ordering : DR TERRI ROJO . Admission #: [id number] Family : Order #: [id number] CLICK HERE TO VIEW EXAM RADIOLOGY REPORT PROCEDURE: ULTRASOUND BREAST LEFT LIMITED COMPARISON: MG MAMM SCREEN CAMERON W CAD, 05/30/2019. MG MAMM SCREEN 3D CAMERON CAD, 01/08/2022. INDICATIONS: Mammographic breast mass TECHNIQUE: Breast ultrasound was performed, with evaluation focusing only on specific areas of concern. FINDINGS: DIAGNOSTIC CATEGORY 3--PROBABLY BENIGN FINDING. THE FOLLOWING FINDING(S) HAS A HIGH PROBABILITY OF A BENIGN ETIOLOGY: LEFT BREAST: 9 x 5 x 5 mm anechoic structure at the 10 o'clock position, 2.7 cm from the nipple, felt to correspond to the mammographic findings. This appears to represent a benign cyst, but follow-up ultrasound evaluation in 6 months is recommended to document stability. RECOMMENDATIONS: SHORT TERM FOLLOW-UP ULTRASOUND LEFT BREAST IN 6 MONTHS. PLEASE NOTE: A NORMAL ULTRASOUND EXAMINATION DOES NOT EXCLUDE THE POSSIBILITY OF BREAST CANCER. A CLINICALLY SUSPICIOUS PALPABLE LUMP SHOULD BE BIOPSIED. Dictated by: Manny Forde M.D. on 01/13/2022 at 10:49 Approved by: Manny Forde M.D. on 01/13/2022 at 10:[address] [facility] MG MAMM SCREEN 3D CAMERON CADon 01-08-2022 MG MAMM SCREEN 3D CAMERON CAD Patient: DAKSHA DELGADO Exam Date: 01/08/2022 : 1950 Gender:F Ordering : DR TERRI ROJO . Admission #: [id number] Family : Order #: [id number] CLICK HERE TO VIEW EXAM RADIOLOGY REPORT PROCEDURE: MAMMOGRAM SCREENING 3D BILATERAL CAD COMPARISON: MG MAMM SCREEN CAMERON W CAD, 05/24/2018. MG MAMM CAMERON SCRN W CAD DIG, 05/03/2016. MG MAMM CAMERON SCRN W CAD DIG, 05/09/2012. MG MAMM SCREEN CAMERON W CAD, 05/30/2019. INDICATIONS: Screening mammography Calculator Name NCI Breast Cancer Risk Assessment Tool 5 Year Breast Cancer Risk 1.70% Lifetime Breast Cancer Risk 4.70% Personal Breast Cancer No Personal Ovarian Cancer No Treatments None Family Cancers None LOCATION: [facility] BREAST COMPOSITION: Heterogeneously dense,which may obscure small masses. FINDINGS: DIAGNOSTIC CATEGORY 0--INCOMPLETE: NEED ADDITIONAL IMAGING EVALUATION. RIGHT BREAST: No significant suspicious finding. No significant change has occurred. LEFT BREAST: 12 x 8 x 8 mm mass within the anterior upper inner quadrant. Ultrasound evaluation is recommended. RECOMMENDATIONS: ULTRASOUND: LEFT BREAST PLEASE NOTE: A NORMAL MAMMOGRAM DOES NOT EXCLUDE THE POSSIBILITY OF BREAST CANCER. A CLINICALLY SUSPICIOUS PALPABLE LUMP SHOULD BE BIOPSIED. Dictated by: Manny Forde M.D. on 01/08/2022 at 15:16 Approved by: Manny Forde M.D. on 01/08/2022 at 15:[address] [facility] XR DEXA BONE DENSITYon 01-08 XR DEXA BONE DENSITY EXAMINATION: XR DEX A BONE DENSITY, 01/08/2022 9:59 AM EDT HISTORY: Screening for osteoporosis COMPARISON: DEXA bone densitometry 05/24/2018 TECHNIQUE: Dual-energy X-ray absorptiometry (DEXA) bone density study performed for the axial skeleton. FINDINGS: SPINE ANALYSIS: Average bone mineral density is 1.305 g/cm2. T-score (standard deviation relative to young adult mean): 0.9 . -1.2% change since prior study. IMPRESSION: World Ernst Organization Classification: Normal - Low Fracture Risk Electronically authenticated by: MANNY OFRDE Date: 2022-01-08 11:[address] [facility] Vital Signs Date Time Vital Sign Value Performing Clinician Relli andrés 09-05-2023 10:00-0500 Body height 167.64 cm Jade Childs Other [facility] Other 09-05-2023 10:00-0500 Body mass index (BMI) [Ratio] 37.12 kg/m2 Jade Childs Other [facility] Other 09-05-2023 10:00-0500 Body weight 104.33 kg Jade Childs Other [facility] Other 05-23-2023 11:15-0400 Body height 167.64 cm Jade Lillian Other [facility] Other 05-23-2023 11:15-0400 Body mass index (BMI) [Ratio] 37.12 kg/m2 Jade Lillian Other [facility] Other 05-23-2023 11:15-0400 Body weight 104.33 kg Jade Lillian Other [facility] Other 03-30-2023 11:15-0400 Body height 167.64 cm Jade Lillian Other [facility] Other 03-30-2023 11:15-0400 Body mass index (BMI) [Ratio] 37.12 kg/m2 Jade Lillian Other [facility] Other 03-30-2023 11:15-0400 Body weight 104.33 kg Jade Lillian Other [facility] Other 02-16-2023 11:15-0400 Body height 167.64 cm Jade Lillian Other [facility] Other 12-08-2022 12:00-0400 Body height 167.64 cm Jade Lillian Other [facility] Other 12-08-2022 12:00-0400 Body mass index (BMI) [Ratio] 37.12 kg/m2 Jade Lillian Other [facility] Other 12-08-2022 12:00-0400 Body weight 104.33 kg Jade Lillian Other [facility] Other 11-24-2022 11:30-0500 Body height 167.64 cm Jade Childs Other [facility] Other 11-24-2022 11:30-0500 Body mass index (BMI) [Ratio] 37.93 kg/m2 Jade Childs Other [facility] Other 11-24-2022 11:30-0500 Body weight 106.6 kg Jade Childs Other [facility] Other Encounters Encounter Date Encounter Type Care Provider Facility Start: 10-04-2023 ambulatory Deven Bronson [facility] :[facility] Start: 09-05-2023 End: 09-05-2023 ambulatory Jade Childs Other [facility] Other Start: 09-05-2023 Office outpatient vi sit 15 minutes Jade Childs [facility] Start: 08-02-2023 End: 08-03-2023 ambulatory Deven Bronson [facility] Start: 06-29-2023 End: 06-30-2023 ambulatory Mary Escoto [facility] Start: 05-23-2023 End: 05-23-2023 ambulatory Jade Childs Other [facility] Other Start: 05-23-2023 Office outpatient vi sit 15 minutes Jade Childs [facility] Start: 03-30-2023 End: 03-30-2023 ambulatory Jade Childs Other [facility] Other Start: 03-30-2023 Office outpatient vi sit 15 minutes Jade Childs [facility] Start: 02-16-2023 End: 02-16-2023 ambulatory Jade Childs Other [facility] Other Start: 02-16-2023 Office outpatient vi sit 15 minutes Jade Childs [facility] Start: 02-02-2023 End: 02-03-2023 ambulatory TERRI ROJO [facility] Start: 01-19-2023 End: 01-19-2023 ambulatory Ana Maria Glasgow Other [facility] Other Start: 01-19-2023 Office outpatient vi sit 15 minutes Ana Maria Posadaarney [facility] Start: 01-07-2023 ambulatory Mary Nilda Tigist Facility: [facility] Start: 12-29-[address] TERRI ROJO . Facil ity:[facility] Start: 12-22-2022 End: 12-22-2022 ambulatory Jade Childs Other [facility] Other Start: 12-22-2022 Office outpatient vi sit 15 minutes Jade Childs [facility] Start: 12-22-2022 Telephone encounter Jade Childs [facility] Start: 12-08-2022 End: 12-08-2022 ambulatory Jade Childs Other [facility] Other Start: 12-08-2022 Postop follow up vis it related to original px Jade Childs [facility] Start: 12-07-2022 ambulatory Deven Bronson Facility:[facility] Start: 11-24-2022 End: 11-24-2022 ambulatory Jade Childs Other [facility] Other Start: 11-24-2022 Office outpatient ne w 30 minutes Jade Childs [facility] Start: 11-21-2022 End: 11-21-[address] TERRI ROJO . Facility:[facility] Start: 09-07-2022 End: 09-08-[address] TERRI ROJO . Facility:[facility] Start: 01-13-2022 End: 01-14-[address] TERRI ROJO . Facility:[facility] Start: 01-08-2022 End: 01-09-[address] TERRI ROJO . Facility:[facility] Payers Date Payer Category Payer Medicare [id number] 2.1 [id number] 1959 Unknown [id number] 2.1 [id number] 1950 Unknown [id number] 2.16.84 [id number] 1950 Unknown [id number] 2.16.84 [id number] 1950 Unknown [id number] 2.16.84 [id number] 1950 Unknown [id number] 2.16.84 [id number] 1950 Unknown [id number] 2.16.84 [id number] 1950 Unknown [id number] 2.16.8 [id number] 1950 Unknown [id number] 2.16.8 [id number] 1950 Unknown [id number] 2.16.8 [id number] 1950 Unknown [id number] 2.16.8 [id number] 1950 Unknown [id number] 2.16.8 [id number] Social History Date Type Detail Facility Unknown if ever smoked [facility] Other Sex Assigned At Sex Assigned At Bir th [facility] Other Evaluation note 09-05-2023 Note Date & Type Note Facility 09-05-2023 Evaluation note Encounter Date Diagnosis Assessment Notes 11 Dec, 2023 Rupture of left Achilles tendon, subsequent encounter (ICD-10 - S86.012D) Daksha returns with left ankle Achilles tendon tear. At this juncture we have discussed the findings and diagnosis as well as personally reviewed appropriate imaging and performed interpretation of related testing and examination with the patient in office today. Overall physical exam is benign. I feel her heel cord is very reasonable today. She continues to complain of some tingling in bilateral feet and we will start gabapentin 100 mg at night which she needs to follow-up with her primary physician for. She can follow-up with me as needed The patient has been involved in our cooperative treatment plan and agrees to move forward with treatment at this time. Aug, Achilles tendinitis of right lower extremity (ICD-10 - M76.61) Aug, Neuropathy (ICD-10 - G62.9) Prescription for gabapentin was sent into patients pharmacy. Discussed with patient to follow up with primary care for refills if the medication is helping. [facility] Other Evaluation note 05-23-2023 Note Date & Type Note Facility 05-23-2023 Evaluation note Encounter Date Diagnosis Assessment Notes Apr, Rupture of left Achilles tendon, subsequent encounter (ICD-10 - S86.012D) Daksha returns with left ankle Achilles tendon tear. At this juncture we have discussed the findings and diagnosis as well as personally reviewed appropriate imaging and performed interpretation of related testing and examination with the patient in office today. Overall physical exam is benign. She is continuing to improve and wants to continue physical therapy which I think is reasonable to advance strength and ADLs. I will plan to see her back in 3 months The patient has been involved in our cooperative treatment plan and agrees to move forward with treatment at this time. Today, we performed a physical examiantion of the left achilles tendon was performed today. Patient advised to keep exerciing the ankle. We will provide a refill of the PT. We did also refill Celebrex and Flexeril as well. Patient will f/u in 3 months Apr, Achilles tendinitis of right lower extremity (ICD-10 - M76.61) Apr, Neuropathy (ICD-10 - G62.9) [facility] Other Evaluation note 03-30-2023 Note Date & Type Note Facility 03-30-2023 Evaluation note Encounter Date Diagnosis Assessment Notes Mar, Rupture of left Achilles tendon, subsequent encounter (ICD-10 - S86.012D) Daksha returns with left ankle Achilles tendon tear. At this juncture we have discussed the findings and diagnosis as well as personally reviewed appropriate imaging and performed interpretation of related testing and examination with the patient in office today. Overall physical exam is benign. She continues to have some Achilles tendon pain but functionally it is improving. I would continue working with physical therapy to advance strength, motion as well as functional status. Her baseline function was pretty low initially it seemed. Follow-up in 6 weeks The patient has been involved in our cooperative treatment plan and agrees to move forward with treatment at this time. Daksha returns for recheck rupture of left Achilles. She continues in physical therapy. She continues to complain of pain and swelling at the site, along with neuropathy of the toes of the left foot. Patient states she has improved slightly with physical therapy. I advised her to use ice and elevation along with compression stockings for swelling. She may remain out of CAM walking boot and continue with PT. I advised patient to also work on PT exercises at home. We will discontinue Meloxicam and start on Celebrex. She voices understanding. Mar, Achilles tendinitis of right lower extremity (ICD-10 - M76.61) Mar, Neuropathy (ICD-10 - G62.9) [facility] Other Evaluation note 02-16-2023 Note Date & Type Note Facility 02-16-2023 Evaluation note Encounter Date Diagnosis Assessment Notes January, Rupture of left Achilles tendon, subsequent encounter (ICD-10 - S86.012D) Daksha returns with left ankle Achilles tendon tear. She is almost 8 weeks out. At this juncture we have discussed the findings and diagnosis as well as personally reviewed appropriate imaging and performed interpretation of related testing and examination with the patient in office today. Follow-up in 6 weeks Postoperative protocol -Today advance WBAT in boot -Start to wean from boot - 100 % weightbearing in the boot, progress to shoes as tolerated - Physical therapy for strengthening at that time and increase dorsiflexion The patient has been involved in our cooperative treatment plan and agrees to move forward with treatment at this time. Extensive discussion was had about the current condition and treatment options available. Patient instructed she may begin to use a regular shoe at this time and stop use of boot. Patient instructed on continuing to work with physical therapy. Continue with cane as needed. January, Achilles tendinitis of right lower extremity (ICD-10 - M76.61) Extensive discussion was had about the current condition and treatment options available. We discussed use of Voltaren gel to the affected area. Patient provided an order for physical therapy today. January, Other See orders for this visit as documented in the electronic medical record. [facility] Other Evaluation note 01-19-2023 Note Date & Type Note Facility 01-19-2023 Evaluation note Encounter Date Diagnosis Assessment Notes Dec, Rupture of left Achilles tendon, subsequent encounter (ICD-10 - S86.012D) Dec, Other Daksha returns with left ankle Achilles tendon tear. Patient is progressing well from this injury. She is active in physical therapy twice weekly with improvement. I recommend she continues with therapy sessions at least two to three times weekly. She may incorporate aquatherapy as well. We discussed the importance of continuing to work on range of motion and strength exercise. She may begin to weight bear as tolerated with use of the walker. She may continue with use of boot at this time, and begin to transition in to normal shoe wear. Continue with use of walker as needed. Patient voices understanding and states no further questions at this time. The patient has been involved in our cooperative treatment plan and agrees to move forward with treatment at this time. Examination and assessment of this patient was performed by Ana Maria Glasgow NP and patient will continue with the treatment plan per Dr. Childs, who initiated this treatment plan. Dr. Hernandez is present in the office today and providing supervision. [facility] Other Evaluation note 12-22-2022 Note Date & Type Note Facility 12-22-2022 Evaluation note Encounter Date Diagnosis Assessment Notes Nov, Rupture of left Achilles tendon, subsequent encounter (ICD-10 - S86.012D) Nov, Nat Crooks returns with left ankle Achilles tendon tear. She is almost 2 weeks out and has returned earlier per protocol. At this juncture we have discussed the findings and diagnosis as well as personally reviewed appropriate imaging and performed interpretation of related testing and examination with the patient in office today. Today we have removed 1 heel lift and over the next month she will remove 1 layer of the heel lift per week. Continue 50% weightbearing with use of walker. Start physical therapy for dorsiflexion to neutral. Follow-up in 4 weeks Postoperative protocol - Next visit will WBAT in boot - Okay for boot removal for hygiene purposes only - 100 % weightbearing in the boot, progress to shoes as tolerated - Physical therapy for strengthening at that time and increase dorsiflexion The patient has been involved in our cooperative treatment plan and agrees to move forward with treatment at this time. Patient is progressing well from this injury. We discussed the importance of continuing to work on range of motion and strength exercise. We discussed starting to peel one carpet layer helper of the heel lift each week. Continue with use of boot at this time. Continue with use of walker as needed. A prescription for physical therapy was provided today. [facility] Other Evaluation note 12-08-2022 Note Date & Type Note Facility 12-08-2022 Evaluation note Encounter Date Diagnosis Assessment Notes Nov, Rupture of left Achilles tendon, subsequent encounter (ICD-10 - S86.012D) Nov, Other Daksha returns with left ankle Achilles tendon tear. She is almost 2 weeks out and has returned earlier per protocol. At this juncture we have discussed the findings and diagnosis as well as personally reviewed appropriate imaging and performed interpretation of related testing and examination with the patient in office today. At her age and habitus she is a poor surgical candidate we will plan for nonoperative treatment. We discussed nonoperative treatment for her injury. Today we have placed her in a tall walking boot with 2 heel lifts. She should maintain use of walker at all times with 50% weightbearing to the right lower extremity. I will plan to see her back in another 10 days or so and we will get her started in therapy with our Achilles tendon protocol Postoperative protocol -Next visit will start lift removal -Okay for boot removal for hygiene purposes only -50% weightbearing with crutches in the boot -Physical therapy for passive stretching to neutral will start next visit 6-9 weeks post injury -Boot at neutral with weightbearing as tolerated -Physical therapy to increase dorsiflexion The patient has been involved in our cooperative treatment plan and agrees to move forward with treatment at this time. Daksha returns with complaint of pain secondary to right ankle Achilles tendon tear. Injury occured two weeks ago. She is currently ambulating with a walker and wears a CAM walking boot with two heel lifts. She is taking Flexeril and Meloxicam for pain and swelling. Patient is to reamain 50% weightbearing to the right lower extremity. She is to remain in boot even while sleeping. We will refill Cyclobenzaprine today and she may continue with Meloxicam and Tylenol. I will follow up with patient at the end of the month when she returns from vacation. We will plan to beging physical therapy at that time. Patient voices understanding and is agreeable to treatment plan. [facility] Other Evaluation note 11-24-2022 Note Date & Type Note Facility 11-24-2022 Evaluation note Encounter Date Diagnosis Assessment Notes Nov, Rupture of right Achilles tendon, initial encounter (ICD-10 - S86.011A) Daksha presents with right ankle Achilles tendon tear. At this juncture we have discussed the findings and diagnosis as well as personally reviewed appropriate imaging and performed interpretation of related testing and examination with the patient in office today. Prior medical notes from [facility] and history have been reviewed. At her age and habitus she is a poor surgical candidate we will plan for nonoperative treatment. We discussed nonoperative treatment for her injury. Today we have placed her in a tall walking boot with 2 heel lifts. She should maintain use of walker at all times with 50% weightbearing to the right lower extremity. I will plan to see her back in approximately 3 weeks and we will get her started in therapy with our Achilles tendon protocol Postoperative protocol -Splint removal and boot application with two heel lifts -Okay for boot removal for hygiene purposes only -50% weightbearing with crutches in the boot -Physical therapy for passive stretching to neutral will start next visit 6-9 weeks post injury -Boot at neutral with weightbearing as tolerated -Physical therapy to increase dorsiflexion The patient has been involved in our cooperative treatment plan and agrees to move forward with treatment at this time. Instructed patient to continue to wear tall CAM boot, two show lifts were added to the boot. Instructed patient to limit weight bearing to the right lower extremity. Patient given order for physical therapy for a walker and gait training. Call with any questions or concerns. Prescription for cyclobenzaprine sent into patients pharmacy Nov, Other See orders for this visit as documented in the electronic medical record. [employer] Other History general Narrative - Reported 02-24-2019 Note Date & Type Note Facility 02-24-2019 History general N arrative - Reported Type Medical History Borderline Type 2 Diabetes Medical History Hypertension Medical History kidney Stones 02/2019 Surgical History Partial Bowel Removal 37 years ago Surgical History Tonsil & Adnoids Surgical History Appendectomy 1971 Surgical History Hysterectomy with Bl adder Suspension 1988 Surgical History Tubal Ligation Surgical History Bilateral Knee Replacement 2009 Surgical History LT Hospitalization History Pneumonia 09/2017 [employer] Other Evaluation note Note Date & Type Note Facility Evaluation note No Information [employer] Other Summary Purpose Family History No Family History Records FoundNo Family History Records FoundNo Family History Records Found Advance Directives No Advanced Directives Records FoundNo Advanced Directives Records FoundNo Advanced Directives Records Found Additional Source Comments INFORMATION SOURCE (unrecogn ized section and content) DATE CREATED AUTHOR 03/20/2022 [facility] DATE CREATED AUTHOR AUTHOR'S ORGANIZ ATION [facility]/31/2022 [facility] DATE CREATED AUTHOR AUTHOR'S ORGANIZ ATION 09/22/2023 [facility] REASON FOR VISIT (unrecogniz ed section and content) Left Foot InjuryRecheck Left AnkleRecheck Left AchillesNo Information4 WEEKSRecheck Left AchillesRecheck Left AchillesRecheck Left AnkleRecheck Left Ankle FOR RECORDS PERTAINING TO PATIENTS WHO ARE OR HAVE BEEN ENROLLED IN A CHEMICAL DEPENDENCY/SUBSTANCEABUSE PROGRAM, SOME INFORMATION MAY BE OMITTED. This clinical summary was aggregated from multiple sources. Caution should be exercised in using it in the provision of clinical care. This summary normalizes information from multiple sources, and as a consequence, information in this document may materially change the coding, format and clinical context of patient data. In addition, data may be omitted in some cases. CLINICAL DECISIONS SHOULD BE BASED ON THE PRIMARY CLINICAL RECORDS. [facility]. provides no warranty or guarantee of the accuracy or completeness of information in this document.
[2023-09-29 11:08] LABS: Estimated Average Glucose 217 mg/dL; Glycohemoglobin A1C 9.2 % (4.5-6.2)
[2023-09-29 11:12] LABS: Creatinine Urine Random 146.16 mg/dL (20.00-300.00); Microalbumin Urine Random 6.8 mg/dL (<=30.0); Protein Creatinine Ratio Urine 0.33; Total Protein Urine Random 48.9 mg/dL (<=11.9)
[2023-09-29 11:46] LABS: Anion Gap 13.4; Carbon Dioxide 25.6 mmol/L (21.0-32.0); Chloride 96 mmol/L (98-107); Glucose 204 mg/dL (74-106); Sodium 131 mmol/L (136-145)
[2023-09-29 11:47] LABS: Alanine Aminotransferase 32 U/L (14-59); Albumin Globulin Ratio 0.9; Albumin Level 3.8 g/dL (3.4-5.0); Alkaline Phosphatase 49 U/L (46-116); Aspartate Amino Transferase 21 U/L (15-37); BUN Creatinine Ratio 18.2; Bilirubin Total 0.4 mg/dL (0.2-1.0); Calcium 9.6 mg/dL (8.5-10.1); Chol HDL Ratio 4.2; Cholesterol 200 mg/dL (<=200); Estimated GFR (African America >60 (>=60); Estimated GFR (Non-African Ame >60 (>=60); Globulin 4.3 g/dL; HDL Cholesterol 48 mg/dL (40-60); Total Protein 8.1 g/dL (6.4-8.2); Triglycerides 264 mg/dL (<=150); VLDL CHOLESTEROL 52.8 mg/dL
[2023-09-30 08:12] LABS: HCV Ab Non Reactive (Non Reactive)
== END 2023-09-29 10:28 | disposition home or self-care (01) ==
LOC: LAB 10:31
PROVIDERS: PCP Family Medicine; Visit Provider Family Medicine
DX: Z00.00 Encounter for general adult medical examination without abnormal findings (principal); I10 Essential (primary) hypertension; E11.8 Type 2 diabetes mellitus with unspecified complications; Z13.6 Encounter for screening for cardiovascular disorders; Z72.89 Other problems related to lifestyle
CPT/HCPCS: 36415; 80053; 80061; 82043; 82570; 83036; 84156; 86803

== ENCOUNTER 2024-01-09 09:54 | Outpatient (OUT) | payer MEDICARE, SELFPAY ==
--- NOTE | 2024-01-09 09:57 | US_ITS ---
[address] [address] Patient Name: YESY DELGADO MRN: [id number] date: 1950 Sex: F Assigned Patient Location: US Current Patient Location: Accession/Order Number: [id number] Exam Date: 01/09/2024 10:00 Report Date: 01/09/2024 12:32 At the request of: RIMMA KELLY Procedure: US aorta EXAM: US aorta HISTORY: family history of aortic aneurysm COMPARISON: None. TECHNIQUE: Grayscale color and Doppler FINDINGS: Proximal aorta: 2.3 x 1.7 cm Mid aorta: 1.9 x 1.8 cm Distal aorta: 1.7 x 1.9 cm Right common iliac artery: 1.1 x 1.3 cm Left common iliac artery: 1 2 x 1.1 cm Mild atherosclerosis US/US aorta IMPRESSION: No abdominal aortic aneurysm observed Electronically authenticated by: CARLOS YBARRA Date: 01/09/2024 12:32
== END 2024-01-09 09:55 | disposition home or self-care (01) ==
LOC: US 09:54
PROVIDERS: PCP Family Medicine; Visit Provider Family Medicine
DX: Z13.6 Encounter for screening for cardiovascular disorders (principal); Z84.89 Family history of other specified conditions
CPT/HCPCS: 76706

== ENCOUNTER 2024-07-05 13:20 | Outpatient (OUT) | payer MEDICARE, SELFPAY ==
--- NOTE | 2024-07-05 13:28 | MM_ITS ---
Patient Name: YESY DELGADO MR#: [id number] : 1950 Exam Date: 07/05/2024 Ordering Doctor: DR. RIMMA KELLY . RADIOLOGY REPORT PROCEDURE: MM TOMOSYNTHESIS SCREENING BI COMPARISON: MG MAMM SCREEN 3D THOMAS CAD, 01/08/2022. MG MAMM SCREEN THOMAS W CAD, 05/30/2019. MG MAMM THOMAS SCRN W CAD DIG, 05/09/2012. INDICATIONS: Screening for malignant neoplasm Calculator Name NCI Breast Cancer Risk Assessment Tool 5 Year Breast Cancer Risk 1.70% Lifetime Breast Cancer Risk 4.30% Personal Breast Cancer No Personal Ovarian Cancer No Treatments None Family Cancers None LOCATION: [facility] BREAST COMPOSITION: The breasts are heterogeneously dense,which may obscure small masses. FINDINGS: DIAGNOSTIC CATEGORY 1--NEGATIVE. RIGHT BREAST: No significant suspicious finding. No significant change has occurred. LEFT BREAST: No significant suspicious finding. No significant change has occurred. RECOMMENDATIONS: ROUTINE MAMMOGRAM AND CLINICAL EVALUATION IN 12 MONTHS. PLEASE NOTE: A NORMAL MAMMOGRAM DOES NOT EXCLUDE THE POSSIBILITY OF BREAST CANCER. A CLINICALLY SUSPICIOUS PALPABLE LUMP SHOULD BE BIOPSIED. Dictated by: Manny Forde M.D. on 07/05/2024 at 15:44 Approved by: Manny Forde M.D. on 07/05/2024 at 15:46
== END 2024-07-05 13:21 | disposition home or self-care (01) ==
LOC: MAMMO 13:20
PROVIDERS: PCP Family Medicine; Visit Provider Family Medicine
DX: Z12.31 Encounter for screening mammogram for malignant neoplasm of breast (principal)
CPT/HCPCS: 77063; 77067

== ENCOUNTER 2024-07-29 14:42 | Emergency (ER) | payer OTHER, MEDICARE, SELFPAY ==
--- OUTSIDE RECORDS SUMMARY | 2024-07-29 14:50 | XMS_ITS | CCD ---
Author Organization [facility] [place] Care Team Providers Care Metal Framer Name Role Phone Jade Childs Unavailable FERNANDO ., DR TERRI Lawson Admitting Unavailable KING ., DR TERRI Lawson Attending Unavailable KING ., DR TERRI Lawson Consulting Unavailable KING ., DR TERRI Lawson Primary Care Unavailable KING ., DR TERRI Lawson Primary Care Unavailable JADE CHILDS Attending Unavailable JADE CHILDS Admitting Unavailable KING ., DR TERRI Lawson Primary Care Unavailable HAY ., DR GORMAN Admitting Unavailable HAY ., DR GORMAN Attending Unavailable HAY ., DR GORMAN Consulting Unavailable TARAS WILEY Consulting Unavailable KING ., DR TERRI Lawson Admitting Unavailable KING ., DR TERRI Lawson Attending Unavailable KING ., DR TERRI Lawson Consulting Unavailable KING ., DR TERRI Lawson Primary Care Unavailable LUBNA, DR MANNY Mckeon Consulting Unavailable KING ., DR TERRI Lawson Admitting Unavailable KING ., DR TERRI Lawson Attending Unavailable KING ., DR TERRI Lawson Consulting Unavailable KING ., DR TERRI Lawson Primary Care Unavailable LUBNA, DR MANNY Mckeon Consulting Unavailable Ana Maria Glasgow Unavailable MD Deven Bronson. Attending Unavailable MD Deven Bronson. Attending Unavailable MD Deven Bronson. Attending Unavailable MD Deven Bronson. Attending Unavailable MD Deven Bronson. Attending Unavailable MD Deven Bronson. Attending Unavailable MD Deven Bronson. Attending Unavailable MD Deven Bronson. Attending Unavailable MD Deven Bronson. Attending Unavailable Allergies Allergy Classification Reported Allergen(s) Allergy Type Date of Onset Reaction(s) Facility (11 sources) Nalbuphine; Translations: [Nubain] Drug Allergy Unknown [facility] Repository (9 sources) Sulfonamides (Antibiotic) Propensity to adverse reactions Unknown [email or web address] Other (1 source) bee venom Drug allergy (disorder) [facility] Repository (2 sources) HYDROmorphone; Translations: [Dilaudid] Drug Allergy 07-16-20 [facility] Repository (1 source) Sulfonamides (Antibiotic) Drug allergy (disorder) [facility] Repository (1 source) celecoxib; Translations: [CeleBREX] Drug Allergy [facility] Repository (1 source) Clarithromycin; Translations: [Biaxin] Drug Allergy [facility] Repository (1 source) Nalbuphine; Translations: [nalbuphine] Drug Allergy [facility] Repository (1 source) rofecoxib; Translations: [Vioxx] Drug Allergy [facility] Repository (1 source) sulfabenzamide / Sulfacetamide / sulfathiazole; Translations: [Sulfabenzamide/Mortensen lfacetamide/Sulfat hiazole] Drug Allergy [facility] Repository Medications Current Medications Medication Drug [...] left hip] Chronic Other aftercare (1 source) [facility] (current) use of oral hypoglycemic drugs; Translations: [PLUG PASTER USE ORAL HYPOGLYCEMIC DX] Onset: 11-22-19 Episodic Other aftercare (1 source) Other nursing home (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; Translations: [OTH [facility] CURRENT DRUG THERAPY] Onset: 11-22-19 Episodic Other [...] Name Value Interpretation Reference Range Facil ity Ambulatory Visit Summaryon 1 Ambulatory Visit Summary Ambulatory Visit Summary DAKSHA CORLEY :1950 Visit Date:06/26/2024 Ambulatory Visit Instructions Your Diagnosis Encounter for subsequent annual wellness visit in Medicare patient Aortic atherosclerosis Type 2 diabetes mellitus with morbid obesity HTN (hypertension) Immunization declined Screening for malignant neoplasm of colon Breast cancer screening by mammogram Screening for ischemic heart disease Obesity due to excess calories Tests Performed MA Mamm Screen w/CAD if perf and 3D Cameron -- Results Pending -- Please visit your patient portal for your results or contact your primary care physician. Your Care Team Attending Physician - Deven Bronson MD. Primary Care Physician - Deven Bronson MD. This Is Your Medications List Misc Prescription (Blood pressure cuff-wrist) Misc Prescription (CPAP) Misc Prescription (Misc DME Prescription) Misc Prescription (Misc DME Prescription) Misc Prescription (TEST STRIPS AND LANCETS) Non-Formulary Medication (equate sleep aid) ascorbic acid (ascorbic acid 1000 mg oral tablet) bacillus coagulans (Probiotic Digestive Aid Gummies) cyanocobalamin (cyanocobalamin 100 mcg oral tablet) gabapentin (gabapentin 300 mg Cap) glipiZIDE (glipiZIDE 5 mg Tab) hydrochlorothiazide-li sinopril (hydrochlorothiazide-l isinopril 12.5 mg-20 mg Tab) meloxicam (meloxicam 15 mg Tab) metformin (Glucophage XR 500 mg Tab-ER) oxybutynin (oxybutynin 5 mg ER Tab) pantoprazole (Pantoprazole [address] Tab) psyllium (Metamucil) semaglutide (Ozempic 2 mg/3 mL (0.25 mg or 0.5 mg dose) subcutaneous solution) [Image Removed: STOP]Stop taking these medications dulaglutide (Trulicity Pen 0.75 mg/0.5 mL subcutaneous solution) Procedures Performed Cystoscopy and retrograde pyelography (03/20/2020), Abdominal hysterectomy, Appendectomy, Arthroplasty of the hip, Colonoscopy, Gall bladder, H/O: tubal ligation, Partial resection of colon, Tonsillectomy and adenoidectomy, Total knee arthroplasty, Total knee arthroplasty. Discharge Vitals Heart Rate (Peripheral) 84 Blood Pressure 122/78 Height 165 cm Height 65 in Weight 103.7 kg Weight 228.14 lb BMI 38.09 What to do next Scheduled Follow-Up Appointments Tuesday 9:20 AM EST With: Where: [address] [address]- Tuesday 1:15 PM EST With: Audie BIGGS, Deven Alfredo Where: [address] [address]- 2024 2:30 PM EDT With: Where: [address] [address]- You Need to Complete the Following Comprehensive Metabolic Panel, Blood, Routine collect, 06/26/24, Order for future visit, Lab Collect, HTN (hypertension), Not Required, Print Label By Order Location HgbA1c, Blood, Routine collect, 06/26/24, Order for future visit, Lab Collect, Type 2 diabetes mellitus with morbid obesity, Required & Missing, Print Label By Order Location Lipid Panel, Blood, Routine collect, 06/26/24, Order for future visit, Lab Collect, Screening for ischemic heart disease, Required & Missing, Print Label By Order Location Urine Microalbumin/Creatinin e Ratio, Urine, Routine collect, 06/26/24, Order for future visit, Nurse collect, HTN (hypertension), Not Required, Print Label By Order Location Medications What How Much When Why Instructions Unchanged ascorbic acid (ascorbic acid 1000 mg oral tablet) 1 Tablets By Mouth Every day Unchanged bacillus coagulans (Probiotic Digestive Aid Gummies) See instructions take 2 orally daily Unchanged cyanocobalamin (cyanocobalamin 100 mcg oral tablet) 1 Tablets By Mouth Every day Unchanged gabapentin (gabapentin 300 mg Cap) 2 Capsules By Mouth 2 times a day 2 at night 1 in the am and one after lunch Unchanged glipiZIDE (glipiZIDE 5 mg Tab) 1 Tablets By Mouth 2 times a day Unchanged hydrochlorothiazide-li sinopril (hydrochlorothiazide-l isinopril 12.5 mg-20 mg Tab) 1 Tablets By Mouth 2 times a day Unchanged meloxicam (meloxicam 15 mg Tab) 1 Tablets By Mouth Every day TAKE WITH FOOD Unchanged metformin (Glucophage XR 500 mg Tab-ER) 2 Tablets By Mouth 2 times a day Unchanged Misc Prescription (Blood pressure cuff-wrist) See instructions As Directed-Check blood pressure 1-2 hours after taking BP medication. Unchanged Misc Prescription (CPAP) See instructions ELY (obstructive sleep apnea) c-pap machine w/ humidifier and rx must state motor life exceeded repair or replacement. Pressure setting 11 Unchanged Misc Prescription (Misc DME Prescription) See instructions True metrix test strips Test once a day Dx E 11.9 Unchanged Misc Prescription (Misc DME Prescription) See instructions Ultra thin unilet lancets use to test blood sugars once a day Dx E11.9 Unchanged Misc Prescription (BAYLEE (more content not included)... Normal [facility] Family Medicine Office/Clini c Noteon 07-02-2024 Family Medicine Office/Clinic Note Family Medicine Office/Clinic Note Chief Complaint Subsequent Medicare Wellness History of Present Illness Covid-19, MERS, Ebola Screen *Contact With Person [...] Airborne, Droplet Precautions for MERS/COVID-19 : N/A Rachel Bolanos - 06/26/2024 14:44 EDT Medicare/Medicaid Summary Chief Complaint : Subsequent Medicare Wellness Patient Counseled : Nutrition, Physical activity, Elevated BMI Height/Length Measured : 165 cm(Converted to: 5 ft 5 in, 64.96 in) Weight Measured : 103.7 kg(Converted to: 228 lb 10 Ounces, 228.619 lb) Body Mass Index Measured : 38.09 kg/m2 Height in Inches : 65 in Weight in Pounds : 228.14 lb Systolic Blood Pressure : 122 mmHg Diastolic Blood Pressure : 78 mmHg Blood Pressure Location : Left arm Blood Pressure Position : Sitting O2 Sat Resting/Exertion Alpha : Resting Peripheral Pulse Rate : 84 bpm SpO2 : 96 % Pain Present : No actual or suspected pain Albin Rachel Stephen - 06/26/2024 14:44 EDT Hearing and Vision Screening FT FT Whisper Test Comments : no hearing deficits Vision Screen Comments : wears corrective lens. Goes [facility]. Rachel Bolanos - 06/26/2024 14:44 EDT Advance Directive FT Advance Directive : No Patient Wishes to Receive Further Information on Advance Directives : No Organ Donation Consent : No Rachel Bolanos - 06/26/2024 14:44 EDT Procedures / Surgeries FT - Procedure History (As Of: 06/26/2024 15:02:21 EDT) Procedure Dt/Tm: 03/20/2020 ; Provider: Medhat BOLANOS MD; Anesthesia Minutes: 0 ; Procedure Name: Cystoscopy and retrograde pyelography ; Procedure Minutes: 0 ; Comments: 03/20/2020 15:21 EDT - Delores RODRIGUEZ, Melida right ; Last Reviewed Dt/Tm: 06/26/2024 14:49:17 EDT Anesthesia Minutes: 0 ; Procedure Name: Total knee arthroplasty ; Procedure Minutes: 0 ; Comments: 03/20/2020 7:18 Leigh Ann Raya RN left ; Last Reviewed Dt/Tm: 06/26/2024 14:49:17 EDT Anesthesia Minutes: 0 ; Procedure Name: Total knee arthroplasty ; Procedure Minutes: 0 ; Comments: 03/20/2020 7:18 Leigh Ann Raya RN right ; Last Reviewed Dt/Tm: 06/26/2024 14:49:17 EDT Anesthesia Minutes: 0 ; Procedure Name: Tonsillectomy and adenoidectomy ; Procedure Minutes: 0 ; Last Reviewed Dt/Tm: 06/26/2024 14:49:17 EDT Anesthesia Minutes: 0 ; Procedure Name: Arthroplasty of the hip ; Procedure Minutes: 0 ; Comments: 03/20/2020 7:18 Leigh Ann Raya RN left ; Last Reviewed Dt/Tm: 06/26/2024 14:49:17 EDT Anesthesia Minutes: 0 ; Procedure Name: H/O: tubal ligation ; Procedure Minutes: 0 ; Last Reviewed Dt/Tm: 06/26/2024 14:49:17 EDT Anesthesia Minutes: 0 ; Procedure Name: Appendectomy ; Procedure Minutes: 0 ; Last Reviewed Dt/Tm: 06/26/2024 14:49:17 EDT Anesthesia Minutes: 0 ; Procedure Name: Abdominal hysterectomy ; Procedure Minutes: 0 ; Last Reviewed Dt/Tm: 06/26/2024 14:49:17 EDT Anesthesia Minutes: 0 ; Procedure Name: Gall bladder ; Procedure Minutes: 0 ; Last Reviewed Dt/Tm: 06/26/2024 14:49:17 EDT Anesthesia Minutes: 0 ; Procedure Name: resection of colon for diverticular disease ; Procedure Minutes: 0 ; Last Reviewed Dt/Tm: 06/26/2024 14:49:17 EDT Anesthesia Minutes: 0 ; Procedure Name: Colonoscopy ; Procedure Minutes: 0 ; Comments: 07/19/2023 7:38 EDT - Shannon León LPN 2009 normal ; Last Reviewed Dt/Tm: 06/26/2024 14:49:17 EDT Family History Family History (As Of: 06/26/2024 15:02:21 EDT) Brother: Relation: Brother ; Gender: Male ; Nomenclature: Aneurysm ; Value: Positive Father: Relation: Father ; Gender: Male ; Nomenclature: Hyperlipidemia ; Value: Positive Nomenclature: Stroke ; Value: Positive Nomenclature: Hypertension ; Value: Positive Mother: Relation: Mother ; Gender: Female ; Nomenclature: Stroke ; Value: Positive Nomenclature: Dementia ; Value: Positive Medicare/Medicaid Social History FT Social History (As Of: 06/26/2024 15:02:21 EDT) Alcohol: Comments: 06/29/2023 13:21 - Fam Pedroza: priscilla (Last Updated: 06/29/2023 13:21:29 EDT by Fam Pedroza) Current, Liquor, 1-2 times per week, Previous treatment: None. Alcohol use interferes with work or home: No. Drinks more than intended: No. Others hurt by drinking: No. Ready to change: No. Household alcohol concerns: No. Comments: 06/26/2024 14:50 - Rachel Bolanos: Patient reports 1 mixed drink 2-4 times a month. (Last Updated: 06/26/2024 14:50:22 EDT by Rachel Bolanos) Tobacco: Denies Tobacco Use Never (less than 100 in lifetime) Tobacco Use:. Never Smokeless Tobacco Use:. Comments: 06/26/2024 14:50 - Rachel Bolanos: denies use. (Last Updated: 06/26/2024 14:50:36 ED (more content not included)... Normal [facility] Comment on above: Result Comment: Elec tronically Signed By: Deven Bronson MD\.br\Date and Time Signed: 07/02/24 15:04 EDT\.br\Electronically Co-Signed By: Rachel Bolanos\.br\Date and Time Co-Signed: 06/26/24 16:50 EDT Ambulatory Visit Summaryon 1 Ambulatory Visit Summary Ambulatory Visit Summary DAKSHA CORLEY :1950 Visit Date:06/26/2024 Ambulatory Visit Instructions Your Diagnosis Type 2 diabetes mellitus with morbid obesity HTN (hypertension) Morbid (severe) obesity due to excess calories ELY (obstructive sleep apnea) Varicose veins of calf Your Care Team Attending Physician - Deven Bronson MD Primary Care Physician - Deven Bronson MD This Is Your Medications List Contact prescribing physician if questions or concerns Misc Prescription (Blood pressure cuff-wrist) Misc Prescription (CPAP) Misc Prescription (Misc DME Prescription) Misc Prescription (Misc DME Prescription) Misc Prescription (TEST STRIPS AND LANCETS) Non-Formulary Medication (equate sleep aid) ascorbic acid (ascorbic acid 1000 mg oral tablet) bacillus coagulans (Probiotic Digestive Aid Gummies) cyanocobalamin (cyanocobalamin 100 mcg oral tablet) gabapentin (gabapentin 300 mg Cap) glipiZIDE (glipiZIDE 5 mg Tab) hydrochlorothiazide-li sinopril (hydrochlorothiazide-l isinopril 12.5 mg-20 mg Tab) meloxicam (meloxicam 15 mg Tab) metformin (Glucophage XR 500 mg Tab-ER) oxybutynin (oxybutynin 5 mg ER Tab) pantoprazole (Pantoprazole [address] Tab) psyllium (Metamucil) semaglutide (Ozempic 2 mg/3 mL (0.25 mg or 0.5 mg dose) subcutaneous solution) [Image Removed: STOP]Stop taking these medications dulaglutide (Trulicity Pen 0.75 mg/0.5 mL subcutaneous solution) Procedures Performed Cystoscopy and retrograde pyelography (03/20/2020), Abdominal hysterectomy, Appendectomy, Arthroplasty of the hip, Colonoscopy, Gall bladder, H/O: tubal ligation, Partial resection of colon, Tonsillectomy and adenoidectomy, Total knee arthroplasty, Total knee arthroplasty. Discharge Vitals Temperature (Temporal Artery) 36.2 ?C Heart Rate (Peripheral) 84 Respiratory Rate 16 Blood Pressure 122/78 Height 165 cm Height 65 in Weight 103.7 kg Weight 228.14 lb BMI 38.09 What to do next Scheduled Follow-Up Appointments Tuesday 9:20 AM EST With: Where: [address] [address]- Tuesday 1:15 PM EST With: Audie BIGGS, Deven Alfredo Where: [address] [id number]- 2024 2:30 PM EDT With: Where: [address] [address]- Medications What How Much When Why Instructions Unchanged ascorbic acid (ascorbic acid 1000 mg oral tablet) 1 Tablets By Mouth Every day Contact prescribing physician if questions or concerns Unchanged bacillus coagulans (Probiotic Digestive Aid Gummies) See instructions take 2 orally daily Contact prescribing physician if questions or concerns Unchanged cyanocobalamin (cyanocobalamin 100 mcg oral tablet) 1 Tablets By Mouth Every day Contact prescribing physician if questions or concerns Unchanged gabapentin (gabapentin 300 mg Cap) 2 Capsules By Mouth 2 times a day 2 at night 1 in the am and one after lunch Contact prescribing physician if questions or concerns Unchanged glipiZIDE (glipiZIDE 5 mg Tab) 1 Tablets By Mouth 2 times a day Contact prescribing physician if questions or concerns Unchanged hydrochlorothiazide-li sinopril (hydrochlorothiazide-l isinopril 12.5 mg-20 mg Tab) 1 Tablets By Mouth 2 times a day Contact prescribing physician if questions or concerns Unchanged meloxicam (meloxicam 15 mg Tab) 1 Tablets By Mouth Every day TAKE WITH FOOD Contact prescribing physician if questions or concerns Unchanged metformin (Glucophage XR 500 mg Tab-ER) 2 Tablets By Mouth 2 times a day Contact prescribing physician if questions or concerns Unchanged Misc Prescription (Blood pressure cuff-wrist) See instructions As Directed-Check blood pressure 1-2 hours after taking BP medication. Contact prescribing physician if questions or concerns Unchanged Misc Prescription (CPAP) See instructions ELY (obstructive sleep apnea) c-pap machine w/ humidifier and rx must state motor life exceeded repair or replacement. Pressure setting 11 Contact prescribing physician if questions or concerns Unchanged Misc Prescription (Misc DME Prescription) See instructions True metrix test strips Test once a day Dx E 11.9 Contact prescribing physician if questions or concerns Unchanged Misc Prescription (Misc DME Prescription) See instructions Ultra thin unilet lancets use to test blood sugars once a day Dx E11.9 Contact prescribing physician if questions or concerns Unchanged Misc Prescription (TEST STRIPS AND LANCETS) 1 Subcutaneous Every day Contact prescribing physician if questions or concerns Unchanged Non-Formulary Medication (equate sleep aid) 1 tab By Mouth Every day as needed for Insomnia Contact prescribing physician if questions or concerns Unchanged oxybutynin (oxybu (more content not included)... Normal [facility] Ambulatory Visit Summary Ambulatory Visit Summary DAKSHA CORLEY :1950 Visit Date:06/26/2024 Ambulatory Visit Instructions Your Diagnosis Type 2 diabetes mellitus with morbid obesity HTN (hypertension) Morbid (severe) obesity due to excess calories ELY (obstructive sleep apnea) Varicose veins of calf Your Care Team Attending Physician - Deven Bronson MD Primary Care Physician - Deven Bronson MD This Is Your Medications List Misc Prescription (Blood pressure cuff-wrist) Misc Prescription (CPAP) Misc Prescription (Misc DME Prescription) Misc Prescription (Misc DME Prescription) Misc Prescription (TEST STRIPS AND LANCETS) Non-Formulary Medication (equate sleep aid) ascorbic acid (ascorbic acid 1000 mg oral tablet) bacillus coagulans (Probiotic Digestive Aid Gummies) cyanocobalamin (cyanocobalamin 100 mcg oral tablet) dulaglutide (Trulicity Pen 0.75 mg/0.5 mL subcutaneous solution) gabapentin (gabapentin 300 mg Cap) glipiZIDE (glipiZIDE 5 mg Tab) hydrochlorothiazide-li sinopril (hydrochlorothiazide-l isinopril 12.5 mg-20 mg Tab) meloxicam (meloxicam 15 mg Tab) metformin (Glucophage XR 500 mg Tab-ER) oxybutynin (oxybutynin 5 mg ER Tab) pantoprazole (Pantoprazole [address] Tab) psyllium (Metamucil) semaglutide (Ozempic 2 mg/3 mL (0.25 mg or 0.5 mg dose) subcutaneous solution) Procedures Performed Cystoscopy and retrograde pyelography (03/20/2020), Abdominal hysterectomy, Appendectomy, Arthroplasty of the hip, Colonoscopy, Gall bladder, H/O: tubal ligation, Partial resection of colon, Tonsillectomy and adenoidectomy, Total knee arthroplasty, Total knee arthroplasty. Discharge Vitals Temperature (Temporal Artery) 36.2 ?C Heart Rate (Peripheral) 84 Respiratory Rate 16 Blood Pressure 122/78 Height 165 cm Height 65 in Weight 103.7 kg Weight 228.14 lb BMI 38.09 What to do next Scheduled Follow-Up Appointments Tuesday 1:15 PM EST With: Audie BIGGS, Deven Alfredo Where: [facility] [place] [id number]- Medications What How Much When Why Instructions Unchanged ascorbic acid (ascorbic acid 1000 mg oral tablet) 1 Tablets By Mouth Every day Unchanged bacillus coagulans (Probiotic Digestive Aid Gummies) See instructions take 2 orally daily Unchanged cyanocobalamin (cyanocobalamin 100 mcg oral tablet) 1 Tablets By Mouth Every day Unchanged dulaglutide (Trulicity Pen 0.75 mg/ 0.5 mL subcutaneous solution) 0.75 Milligram Subcutaneous Every week Unchanged gabapentin (gabapentin 300 mg Cap) 2 Capsules By Mouth 2 times a day 2 at night 1 in the am and one after lunch Unchanged glipiZIDE (glipiZIDE 5 mg Tab) 1 Tablets By Mouth 2 times a day Unchanged hydrochlorothiazide-li sinopril (hydrochlorothiazide-l isinopril 12.5 mg-20 mg Tab) 1 Tablets By Mouth 2 times a day Unchanged meloxicam (meloxicam 15 mg Tab) 1 Tablets By Mouth Every day TAKE WITH FOOD Unchanged metformin (Glucophage XR 500 mg Tab-ER) 2 Tablets By Mouth 2 times a day Unchanged Misc Prescription (Blood pressure cuff-wrist) See instructions As Directed-Check blood pressure 1-2 hours after taking BP medication. Unchanged Misc Prescription (CPAP) See instructions ELY (obstructive sleep apnea) c-pap machine w/ humidifier and rx must state motor life exceeded repair or replacement. Pressure setting 11 Unchanged Misc Prescription (Misc DME Prescription) See instructions True metrix test strips Test once a day Dx E 11.9 Unchanged Misc Prescription (Misc DME Prescription) See instructions Ultra thin unilet lancets use to test blood sugars once a day Dx E11.9 Unchanged Misc Prescription (TEST STRIPS AND LANCETS) 1 Subcutaneous Every day Unchanged Non-Formulary Medication (equate sleep aid) 1 tab By Mouth Every day as needed for Insomnia Unchanged oxybutynin (oxybutynin 5 mg ER Tab) 1 Tablets By Mouth Every day Duration: 90 Days Unchanged pantoprazole (Pantoprazole [address] Tab) 1 Tablets By Mouth 2 times a day Unchanged psyllium (Metamucil) See instructions Take 3 gummies orally daily Unchanged semaglutide (Ozempic 2 mg/ 3 mL (0.25 mg or 0.5 mg dose) subcutaneous solution) 0.25 Milligram Subcutaneous Every week Allergies Dilaudid (Foggy mind) Biaxin CeleBREX Nubain (Foggy mind) Sulfabenzamide/Sulface tamide/Sulfathiazole (Unknown) Vioxx nalbuphine (Unknown) Problems Ongoing - Any problem that you are currently receiving treatment for. Advanced care planning/counseling discussion Anticoagulated Aortic atherosclerosis Back pain BMI 39.0-39.9,adult Chronic diarrhea Diverticular disease Family hx of aortic aneurysm Feeling of incomplete bladder emptying Frequency of urination Gout HTN (hypertension) Kidney stone Morbid obesity due to excess calories VOGEL (nonalcoholic steatohepatitis) ELY (obstructive sleep apnea) Other urethral stricture, female Peripheral neuropathy Pos (more content not included)... Normal [facility] Family Medicine Office/Clini c Noteon 06-26-2024 Family Medicine Office/Clinic Note Family Medicine Office/Clinic Note Chief Complaint Management of blood sugar levels and varicose veins pain. HPI Staff Daksha is a 73 year old female presenting for follow up DM, HTN Do you have any of the following symptoms? Foot Exam: UTD Eye Exam: UTD Last A1C: Hgb A1c POC: 10.7 % (03/27/24 10:44:00) Statin: none Patient is here for follow up on hypertension. How often are you checking your blood pressure? Doesnt check BP at home What are your average readings? N/A, Not checking at home Yearly BMP: hospital full panel flu: declines for now questions/concerns: has a new c pap machine, needs a note or letter stating that using the machine every night and it's beneficial to her. Needs this for medicare to cover it. Fax to # [phone] ( [facility]) Needs refills of her her gabapentin, metformin, meloxicam, pantoprazole, glipizide and oxybutynin Will need the semagutide to buderer if to continue or change dose Wants right lower leg checked, veins are puffy and it's painful at times History of Present Illness The patient is a 73-year-old female presenting with concerns regarding her chronic varicose veins, which have started to cause pain. The varicose veins are primarily located on the calf, with episodes of pain occurring at various times, including at night, even when her legs are elevated in a recliner. The patient reports this issue has persisted for a significant duration but recently has started to cause more discomfort, prompting the need for medical intervention. The patient expresses that the pain is severe enough to impact her quality of life, noting a sensation of discomfort that travels up her leg. Additional medical history relevant to this visit includes the patient's management of type 2 diabetes mellitus associated with morbid obesity. Recent interventions include the administration of Ozempic (semaglutide) for weight management and diabetes control, which has resulted in an 8-pound weight loss and some improvement in blood sugar levels. However, the patient expresses concern that her blood sugars remain higher than desirable. The patient is proactive about regular A1c monitoring and plans to have it rechecked as she enters day 91 of her treatment cycle. Furthermore, the patient continues to use a CPAP machine for obstructive sleep apnea, with reported compliance at 91%. This demonstration of adherence exhibits her commitment to managing her sleep apnea effectively. Multiple concerns are integrated into her current health management plan, including monitoring and adjusting medications for hypertension, which was not explicitly addressed during this visit. Additionally, the patient's varicose veins pain now being a prominent issue is candidly addressed, with discussion on potential interventions to provide relief and prevent progression. Review of Systems PHQ Score Initial Depression Screen Score: 0 SCORE Physical Exam Vitals & Measurements T: 36.2 ?C(Temporal Artery) HR: 84(Peripheral) RR: 16 BP: 122/78 SpO2: 96% HT: 65 in HT: 165 cm WT: 103.7 kg WT: 228.14 lb BMI: 38.09 General: alert, no acute distress ENMT: oral mucosa moist Cardiovascular: Regular rate and rhythm, normal peripheral perfusion, heart sounds good Respiratory: Lungs clear to auscultation, respirations non labored Extremities: no deformity, no trauma, varicose veins on the right leg Neurological: oriented x 4, level of consciousness appropriate for age, CN II-XII intact, motor strength equal & normal bilaterally, speech normal Abdomen: Soft, Non-tender, Non-distended, + Bowel sounds Assessment/Plan 1. Type 2 diabetes mellitus with morbid obesity (E11.69: Type 2 diabetes mellitus with other specified complication) Current management with Ozempic is ongoing with partial improvement in blood sugar levels noted. The patient is due for an A1c test which she plans to complete imminently. Strategies to achieve better glycemic control, potentially through medication adjustments, were considered, with a possible increment in semaglutide dosing suggested. Ordered: A1c POC 63023 [place] Ref[facility] 2. HTN (hypertension) (I10: Essential (primary) hypertension) Management of essential hypertension was not a primary focus of today's discussion, but continued adherence to current treatment regimens is presumed. Ordered: A1c POC 97067 [facility] Ref[facility] 3. Morbid (severe) obesity due to excess calories (E66.01: Morbid (severe) obesity due to excess calories) Continued weight management with Ozempic is recommended. The patient has seen an 8-pound weight loss, suggesting efficacy of current treatment. The plan includes continuing to encourage dietary modifications and regular physical activity in conjunction with the medication. Increasing the dose of semaglutide may be considered to enhance weight loss efficacy. Ordered: A1c POC 71110 [place] Referral 4. ELY (obstructive s (more content not included)... [facility] Comment on above: Result Comment: Elec tronically Signed By: Deven Bronson MD\.br\Date and Time Signed: 06/26/24 14:49 EDT Ambulatory Visit Summaryon 0 03-27-2024 Ambulatory Visit Summary Ambulatory Visit Summary DAKSHA CORLEY :1950 Visit Date:03/27/2024 Ambulatory Visit Instructions Your Diagnosis Type 2 diabetes mellitus with morbid obesity HTN (hypertension) BMI 39.0-39.9,adult Class 1 obesity due to excess calories in adult Nonsmoker Peripheral neuropathy Your Care Team Attending Physician - Deven Bronosn MD Primary Care Physician - Deven Bronson MD This Is Your Medications List gabapentin (gabapentin 300 mg Cap) semaglutide (Ozempic 2 mg/3 mL (0.25 mg or 0.5 mg dose) subcutaneous solution) Contact prescribing physician if questions or concerns Misc Prescription (Blood pressure cuff-wrist) Misc Prescription (CPAP) Misc Prescription (Misc DME Prescription) Misc Prescription (Misc DME Prescription) Misc Prescription (TEST STRIPS AND LANCETS) Non-Formulary Medication (equate sleep aid) ascorbic acid (ascorbic acid 1000 mg oral tablet) bacillus coagulans (Probiotic Digestive Aid Gummies) cyanocobalamin (cyanocobalamin 100 mcg oral tablet) glipiZIDE (glipiZIDE 5 mg Tab) hydrochlorothiazide-li sinopril (hydrochlorothiazide-l isinopril 12.5 mg-20 mg Tab) meloxicam (meloxicam 15 mg Tab) metformin (Glucophage XR 500 mg Tab-ER) oxybutynin (oxybutynin 5 mg ER Tab) pantoprazole (Pantoprazole [address] Tab) psyllium (Metamucil) [Image Removed: STOP]Stop taking these medications cholestyramine (cholestyramine 4 g/5 g Oral Pwdr) Procedures Performed Cystoscopy and retrograde pyelography (03/20/2020), Abdominal hysterectomy, Appendectomy, Arthroplasty of the hip, Colonoscopy, Gall bladder, H/O: tubal ligation, Partial resection of colon, Tonsillectomy and adenoidectomy, Total knee arthroplasty, Total knee arthroplasty. Discharge Vitals Temperature (Temporal Artery) 36.0 ?C Heart Rate (Peripheral) 86 Respiratory Rate 16 Blood Pressure 136/84 Height 165 cm Height 65 in Weight 107.9 kg Weight 237.38 lb BMI 39.63 What to do next Scheduled Follow-Up Appointments Tuesday 1:00 PM EDT Where: [facility] Family Medicine Office/Clini c Noteon 03-27-2024 Family Medicine Office/Clinic Note Family Medicine Office/Clinic Note HPI Staff Daksha is a 73 year old female presenting for 3 month follow up DM, HTN Do you have any of the following symptoms? Foot Exam: due Eye Exam: little over a year ago Last A1C: Hgb A1c POC: 8.8 % (01/03/24 10:47:00) Statin: none Patient is here for follow up on hypertension. How often are you checking your blood pressure? not really What are your average readings? N/A, Not checking at home Yearly BMP: 09/29/23 questions/concerns: need refill of gabapentin or possibly change to something else not really working for her. History of Present Illness - See staff HPI. Review of Systems PHQ Score Initial Depression Screen Score: 0 SCORE Physical Exam Vitals & Measurements T: 36.0 ?C(Temporal Artery) HR: 86(Peripheral) RR: 16 BP: 136/84 SpO2: 95% HT: 65 in HT: 165 cm WT: 107.9 kg WT: 237.38 lb BMI: 39.63 General: alert, no acute distress ENMT: oral mucosa moist, Cardiovascular: regular rate and rhythm, normal peripheral perfusion Respiratory: Lungs CTA, respirations non labored Extremities: no deformity, no trauma Neurological: oriented x 4, LOC appropriate for age, CN II-XII intact, motor strength equal & normal bilaterally, speech normal Abdomen: Soft, Nontender, Non-distended, + BS Diabetic Foot Exam Decreased Monofilament Sensation Foot: Left - Normal, Right - Abnormal Bunions/Foot Deformity: Left - Normal, Right - Normal Abnormal Pulse Foot: Left - Normal, Right - Normal Skin Lesions Foot: Left - Normal, Right - Normal Foot Exam Result: Normal foot exam Foot Exam Findings: Decreased sensation on the L heel. Assessment/Plan 1. Type 2 diabetes mellitus with morbid obesity (E11.69: Type 2 diabetes mellitus with other specified complication) - Will add ozempic - POC A1c today - Foot exam done today. - No other issues Ordered: A1c POC 89659 Body Mass Index (BMI) documented 3008F Current tobacco non-user 1036F Depression Screening Negative 3352F Most recent diastolic blood pressure 80-89 mm Hg 3079F Patient screen for fall risk: no falls in last year or 1 fall with no injury in last year 1101F Systolic BP 130-139 mm Hg (Most Recent) 3075F 2. HTN (hypertension) (I10: Essential (primary) hypertension) - At goal. - Continue as before Ordered: A1c POC 73368 Body Mass Index (BMI) documented 3008F Current tobacco non-user 1036F Depression Screening Negative 3352F Most recent diastolic blood pressure 80-89 mm Hg 3079F Patient screen for fall risk: no falls in last year or 1 fall with no injury in last year 1101F Systolic BP 130-139 mm Hg (Most Recent) 3075F 3. BMI 39.0-39.9,adult (Z68.39: Body mass index [BMI] 39.0-39.9, adult) - BMI education added Ordered: A1c POC 35780 Body Mass Index (BMI) documented 3008F Current tobacco non-user 1036F Depression Screening Negative 3352F Most recent diastolic blood pressure 80-89 mm Hg 3079F Patient screen for fall risk: no falls in last year or 1 fall with no injury in last year 1101F Systolic BP 130-139 mm Hg (Most Recent) 3075F 4. Class 1 obesity due to excess calories in adult (E66.09: Other obesity due to excess calories) - Diet and exercise advised Ordered: A1c POC 59499 Body Mass Index (BMI) documented 3008F Current tobacco non-user 1036F Depression Screening Negative 3352F Most recent diastolic blood pressure 80-89 mm Hg 3079F Patient screen for fall risk: no falls in last year or 1 fall with no injury in last year 1101F Systolic BP 130-139 mm Hg (Most Recent) 3075F 5. Nonsmoker (Z78.9: Other specified health status) - Please continue to not smoke Ordered: A1c POC 32687 Body Mass Index (BMI) documented 3008F Current tobacco non-user 1036F Depression Screening Negative 3352F Most recent diastolic blood pressure 80-89 mm Hg 3079F Patient screen for fall risk: no falls in last year or 1 fall with no injury in last year 1101F Systolic BP 130-139 mm Hg (Most Recent) 3075F 6. Peripheral neuropathy (G62.9: Polyneuropathy, unspecified) - Explained that the uncontrolled Type2 Dm is not helping - Will up the gabapentin Orders: gabapentin, 600 mg = 2 cap(s), Oral, BID, 2 at night 1 in the am and one after lunch, # 360 cap(s), Refills(s) 0, Pharmacy: [facility], 165, cm, 03/27/24 10:13:00 EDT, Height/Length Dosing, 107.9, kg, 03/27/24 10:13:00 EDT, Weight Dosing semaglutide, 0.25 mg, SubCutaneous, qWeek, # 3 mL, Refills(s) 0, Pharmacy: [facility], 165, cm, 03/27/24 10:13:00 EDT, Height/Length Dosing, 107.9, kg, 03/27/24 10:13:00 EDT, Weight Dosing Follow-up No qualifying data available Patient Education BMI for Adults Problem List/Past Medical History Ongoing Advanced care planning/counseling discussion Anticoagulated Aortic atherosclerosis Back pain BMI 39.0-39.9,adult Chronic diarrhea Diverticular disease Family hx of aortic aneurysm Feeling of incomplete bladder emptying Frequency of (more content not included)... Normal [facility] Comment on above: Result Comment: Elec tronically Signed By: Audie BIGGS, Deven Alfredo\.br\Date and Time Signed: 03/27/24 10:59 EDT Family Medicine Office/Clini c Noteon 03-02-2024 Family Medicine Office/Clinic Note HPI Staff Daksha is a 72 year old female presenting for 3 month follow up dm, htn will need to document face to face for cpap machine replacement Rx written for c-pap machine w/ humidifier and rx must state motor life exceeded repair or replacement. Pressure setting 11 Fax to [facility] [phone] Do you have any of the following symptoms? Foot Exam: none Eye Exam: coming due Last A1C: 9.2% 09/29/23 Statin: none Sugars running 169-189 in the mornings Patient is here for follow up on hypertension. How often are you checking your blood pressure? Doesnt check BP at home What are your average readings? n/a Yearly BMP: 09/29/23 questions/concerns: having a lot more diarrhea, not sure if it's the metformin has had a part of her colon removed discuss aneurysm screening (brother with aneurysm) History of Present Illness Here for follow up. - See staff HPI. Review of Systems PHQ Score Initial Depression Screen Score: 0 SCORE Physical Exam Vitals & Measurements T: 36.6 ?C(Temporal Artery) HR: 96(Peripheral) RR: 16 BP: 126/82 SpO2: 95% HT: 65 in HT: 165 cm WT: 108.1 kg WT: 237.82 lb BMI: 39.71 General: alert, no acute distress ENMT: oral mucosa moist, Cardiovascular: regular rate and rhythm, normal peripheral perfusion Respiratory: Lungs CTA, respirations non labored Extremities: no deformity, no trauma Neurological: oriented x 4, LOC appropriate for age, CN II-XII intact, motor strength equal & normal bilaterally, speech normal Abdomen: Soft, Nontender, Non-distended, + BS Assessment/Plan 1. HTN (hypertension) (I10: Essential (primary) hypertension) - At goal today. - No issues. - Continue on meds Ordered: cholestyramine, 5 gram, 1 EA, Oral, BID, 210 gram, Refill(s) 0, [facility], 165, cm, 01/03/24 10:13:00 EDT, Height/Length Dosing, 108.1, kg, 01/03/24 10:13:00 EDT, Weight Dosing 2. Type 2 diabetes mellitus with morbid obesity (E11.69: Type 2 diabetes mellitus with other specified complication) - Will recheck A1c today. Ordered: cholestyramine, 5 gram, 1 EA, Oral, BID, 210 gram, Refill(s) 0, [facility], 165, cm, 01/03/24 10:13:00 EDT, Height/Length Dosing, 108.1, kg, 01/03/24 10:13:00 EDT, Weight Dosing 3. BMI 39.0-39.9,adult (Z68.39: Body mass index [BMI] 39.0-39.9, adult) - BMI education uploaded Ordered: cholestyramine, 5 gram, 1 EA, Oral, BID, 210 gram, Refill(s) 0, [facility], 165, cm, 01/03/24 10:13:00 EDT, Height/Length Dosing, 108.1, kg, 01/03/24 10:13:00 EDT, Weight Dosing 4. Class 1 obesity due to excess calories in adult (E66.09: Other obesity due to excess calories) - Diet and exercise advised Ordered: cholestyramine, 5 gram, 1 EA, Oral, BID, 210 gram, Refill(s) 0, [facility], 165, cm, 01/03/24 10:13:00 EDT, Height/Length Dosing, 108.1, kg, 01/03/24 10:13:00 EDT, Weight Dosing 5. Nonsmoker (Z78.9: Other specified health status) - Please continue to not smoke Ordered: cholestyramine, 5 gram, 1 EA, Oral, BID, 210 gram, Refill(s) 0, [facility], 165, cm, 01/03/24 10:13:00 EDT, Height/Length Dosing, 108.1, kg, 01/03/24 10:13:00 EDT, Weight Dosing 6. ELY (obstructive sleep apnea) (G47.33: Obstructive sleep apnea (adult) (pediatric)) - Will redo the CPAP Ordered: cholestyramine, 5 gram, 1 EA, Oral, BID, 210 gram, Refill(s) 0, [facility], 165, cm, 01/03/24 10:13:00 EDT, Height/Length Dosing, 108.1, kg, 01/03/24 10:13:00 EDT, Weight Dosing 7. Chronic diarrhea (K52.9: Noninfective gastroenteritis and colitis, unspecified) - Will try Cholestyramine given hx of gallbladder. - Maybe 2/2 partial colectomy. Ordered: cholestyramine, 5 gram, 1 EA, Oral, BID, 210 gram, Refill(s) 0, [facility], 165, cm, 01/03/24 10:13:00 EDT, Height/Length Dosing, 108.1, kg, 01/03/24 10:13:00 EDT, Weight Dosing 8. Family hx of aortic aneurysm (Z82.49: Family history of ischemic heart disease and other diseases of the circulatory system) U/S ordered. Ordered: US Aorta Orders: gabapentin, 300 mg = 1 cap(s), Oral, BID, # 180 cap(s), Refills(s) 0, Pharmacy: [facility], 165, cm, 01/03/24 10:13:00 EDT, Height/Length Dosing, 108.1, kg, 01/03/24 10:13:00 EDT, Weight Dosing Follow-up No qualifying data available Problem List/Past Medical History Ongoing Advanced care planning/counseling discussion Anticoagulated Aortic atherosclerosis Back pain BMI 39.0-39.9,adult Chronic diarrhea Diverticular disease Family hx of aortic aneurysm Feeling of incomplete bladder emptying Frequency of urination Gout HTN (hypertension) Kidney stone Morbid obesity due to excess calories VOGEL (nonalcoholic steatohepatitis) ELY (obstructive sleep apnea) Other urethral stricture, female Peripheral neuropathy Post-void dribbling Type 2 diabetes mellitus with morbid obesity Urge incontinence Urgency of urination Weak urine stream Historical Abdomi (more content not included)... Normal [facility] Comment on above: Result Comment: Elec tronically Signed By: Deven Bronson MD\.br\Date and Time Signed: 03/02/24 10:56 EDT RAD - Ultrasound Reporton RAD - Ultrasound Report [id number] 0TIFF [facility] Ambulatory Visit Summaryon 0 01-03-2024 Ambulatory Visit Summary DAKSHA CORLEY :1950 Visit Date:01/03/2024 Ambulatory Visit Instructions Your Diagnosis HTN (hypertension) Type 2 diabetes mellitus with morbid obesity BMI 39.0-39.9,adult Class 1 obesity due to excess calories in adult Nonsmoker ELY (obstructive sleep apnea) Chronic diarrhea Family hx of aortic aneurysm Your Care Team Attending Physician - Deven Bronson MD Primary Care Physician - Deven Bronson MD This Is Your Medications List cholestyramine (cholestyramine 4 g/5 g Oral Pwdr) gabapentin (gabapentin 300 mg Cap) Contact prescribing physician if questions or concerns Misc Prescription (Blood pressure cuff-wrist) Misc Prescription (Misc DME Prescription) Misc Prescription (Misc DME Prescription) Misc Prescription (TEST STRIPS AND LANCETS) Non-Formulary Medication (equate sleep aid) ascorbic acid (ascorbic acid 1000 mg oral tablet) bacillus coagulans (Probiotic Digestive Aid Gummies) cyanocobalamin (cyanocobalamin 100 mcg oral tablet) cyclobenzaprine (cyclobenzaprine 5 mg Tab) glipiZIDE (glipiZIDE 5 mg Tab) hydrochlorothiazide-li sinopril (hydrochlorothiazide-l isinopril 12.5 mg-20 mg Tab) meloxicam (meloxicam 15 mg Tab) metformin (Glucophage XR 500 mg Tab-ER) oxybutynin (oxybutynin 5 mg ER Tab) pantoprazole (Pantoprazole [address] Tab) psyllium (Metamucil) Procedures Performed Cystoscopy and retrograde pyelography (03/20/2020), Abdominal hysterectomy, Appendectomy, Arthroplasty of the hip, Colonoscopy, Gall bladder, H/O: tubal ligation, Partial resection of colon, Tonsillectomy and adenoidectomy, Total knee arthroplasty, Total knee arthroplasty. Discharge Vitals Temperature (Temporal Artery) 36.6 ?C Heart Rate (Peripheral) 96 Respiratory Rate 16 Blood Pressure 126/82 Height 165 cm Height 65 in Weight 108.1 kg Weight 237.82 lb BMI 39.71 What to do next Scheduled Follow-Up Appointments Tuesday 10:00 AM EDT With: Audie BIGGS, Deven Alfredo Where: [facility] Normal [address] [place], [place] [id number]- \.br\ You Need to Complete the Following\.br\ US Aorta, 01/03/24, Routine, Order for future visit, Transport Mode: Ambulatory, Reason: Other (please specify), No, Family hx of aortic aneurysm, Family Hx. Recommended by brothers Block Cuber., pp_set_radiology_s ubspecialty, Not Required, [facility]\.br\ Medications\.br\ What How Much When Why Instructions\.br\ New cholestyramine (cholestyramine 4 g/ 5 g Oral Pwdr) 1 Each By Mouth 2 times a day HTN (hypertension) Type 2 diabetes mellitus with morbid obesity BMI 39.0-39.9,adult Class 1 obesity due to excess calories in adult Nonsmoker ELY (obstructive sleep apnea) Chronic diarrhea Pickup at [facility]\.br\ Unchanged gabapentin (gabapentin 300 mg Cap) 1 Capsules By Mouth 2 times a day Pickup at [facility]\.br\ Unchanged ascorbic acid (ascorbic acid 1000 mg oral tablet) 1 Tablets By Mouth Every day Contact prescribing physician if questions or concerns \.br\ Unchanged bacillus coagulans (Probiotic Digestive Aid Gummies) See instructions take 2 orally daily Contact prescribing physician if questions or concerns \.br\ Unchanged cyanocobalamin (cyanocobalamin 100 mcg oral tablet) 1 Tablets By Mouth Every day Contact prescribing physician if questions or concerns \.br\ Unchanged cyclobenzaprine (cyclobenzaprine 5 mg Tab) See instructions Use as needed Contact prescribing physician if questions or concerns \.br\ Unchanged glipiZIDE (glipiZIDE 5 mg Tab) 1 Tablets By Mouth 2 times a day Contact prescribing physician if questions or concerns \.br\ Unchanged hydrochlorothiazid e-lisinopril (hydrochlorothiazi de-lisinopril 12.5 mg-20 mg Tab) 1 Tablets By Mouth 2 times a day Contact prescribing physician if questions or concerns \.br\ Unchanged meloxicam (meloxicam 15 mg Tab) 1 Tablets By Mouth Every day TAKE WITH FOOD Contact prescribing physician if questions or concerns \.br\ Unchanged metformin (Glucophage XR 500 mg Tab-ER) 2 Tablets By Mouth 2 times a day Contact prescribing physician if questions or concerns \.br\ Unchanged Misc Prescription (Blood pressure cuff-wrist) See instructions As Directed-Check blood pressure 1-2 hours after taking BP medication. Contact prescribing physician if questions or concerns \.br\ Unchanged Misc Prescription (Misc DME Prescription) See instructions True metrix test strips Test once a day Dx E 11.9 Contact prescribing physician if questions or concerns \.br\ Unchanged Misc Prescription (Misc DME Prescription) See instructions Ultra thin unilet lancets use to test blood sugars once a day Dx E11.9 Contact prescribing physician if questions or concerns \.br\ Unchanged Misc Prescription (TEST STRIPS AND LANCETS) 1 Subcutaneous Every day Contact prescribing physician if questions or concerns \.br\ Unchanged Non-Formulary Medication (equate sleep aid) 1 tab By Mouth Every day as needed for Insomnia Contact prescribing physician if questions or concerns \.br\ Unchanged oxybutynin (oxybutynin 5 mg ER Tab) 1 Tablets By Mouth Every day Duration: 90 Days Contact prescribing physician if questions or concerns \.br\ Unchanged pantoprazole (Pantoprazole [address] Tab) 1 Tablets By Mouth 2 times a day Contact prescribing physician if questions or concerns \.br\ Unchanged psyllium (Metamucil) See instructions Take 3 gummies orally daily Contact prescribing physician if questions or concerns \.br\ Pharmacy Information\.br\ [facility]: [address] [place] [id number] [phone]\.br\ Allergies\.br\ Dilaudid ([place])\.br\ Biaxin\.br\ CeleBREX\.br\ Nubain ([place]og[place] mind)\.br\ Sulfabenzamide/Sul facetamide/Sulfath iazole (Unknown)\.br\ Vioxx\.br\ nalbuphine (Unknown)\.br\ Problems\.br\ Ongoing - Any problem that you are currently receiving treatment for.\.br\ Advanced care planning/counselin g discussion\.br\ Anticoagulated\.br \ Aortic atherosclerosis\.b r\ Back pain\.br\ BMI 39.0-39.9,adult\.b r\ Chronic diarrhea\.br\ Diverticular disease\.br\ Family hx of aortic aneurysm\.br\ Feeling of incomplete bladder emptying\.br\ Frequency of urination\.br\ Gout\.br\ HTN (hypertension)\.br \ Kidney stone\.br\ Morbid obesity due to excess calories\.br\ VOGEL (nonalcoholic steatohepatitis)\. br\ ELY (obstructive sleep apnea)\.br\ Other urethral stricture, female\.br\ Peripheral neuropathy\.br\ Post-void dribbling\.br\ Type 2 diabetes mellitus with morbid obesity\.br\ Urge incontinence\.br\ Urgency of urination\.br\ Weak urine stream\.br\ Historical - Any problem that you are no longer receiving treatment for.\.br\ Abdominal tenderness\.br\ Flank pain\.br\ Gross hematuria\.br\ HTN - Hypertension\.br\ Incomplete bladder emptying\.br\ Patient Survey\.br\ You may receive a survey via text or e-mail asking about your office visit. Please share your experience with us by completing your survey. We appreciate your feedback and thank you for choosing us for your care.\.br\ \.br\ [facility] - Clinical Noteon Retail - Clinical Note [id number] 0TIFF Normal [facility] Consultation Noteon 11-02-19 Consultation Note [id number] 0TIFF Normal [facility] Lab Reportson 10-07-2023 Lab Reports [id number] 0TIFF Normal [facility] Family Medicine Office/Clini c Noteon 10-06-2023 Family Medicine Office/Clinic Note HPI Staff Daksha is a 72 year old female presenting to [facility] Establish Care: History: htn, DM, Gout, ELY Any previous diagnosis: History of seeing any specialist: Dr Jocelyn baldwin (achilles) When was your last doctors visit: 02/02/23 Last provider: Fernando Any recent labs: 09/29/23 Health Maintenance UTD: Colonoscopy: due, was scheduled, had a and canceled it hasn't rescheduled yet Mammogram: scheduled for this soon Pelvic/Pap: no longer does these flu: wants the high dose we are out so will get elsewhere Acute: Current issues/complaints: Dr Banks rxed the gabapentin, not really working for her, wants to discuss with you. She will no longer be seeing Dr Banks ( care is done for torn achilles) BP is elevated today, said in past Dr King had her on the lisinopril hctz bid but it's only once a day Will need all her meds refiled History of Present Illness Daksha Corley is a 72-year-old female who presents today for establish care and medication refill. The patient presents today with elevated blood pressure, currently managed with lisinopril and hydrochlorothiazide. Her HbA1c level is 9.2%, indicating poor glycemic control. She admits to non-compliance with her prescribed antidiabetic medications, metformin and glipizide, this morning due to a misunderstanding about medication instructions. Her usual blood glucose levels range from 145 to 150 mg/dL. She reports a history of achilles tendon rupture in 2022. She is on gabapentin 100 mg for neuropathy but expresses dissatisfaction with its efficacy. She also mentions discontinuing her consultations with Dr. Banks. She reports mild GERD symptoms. She underwent a cholecystectomy performed by Dr. Dimas but continues to experience right upper quadrant pain. She underwent CT scans postoperatively. She experiences pain during unexpected sneezing episodes and acknowledges being overweight. She questions the necessity of continuing allopurinol and expresses concern about potential hepatic and renal toxicity. 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 Review of Systems PHQ Score Initial Depression Screen Score: 0 SCORE Physical Exam Vitals & Measurements T: 36.3 ?C(Temporal Artery) HR: 84(Peripheral) RR: 16 BP: 156/98 SpO2: 96% HT: 65 in HT: 165 cm WT: 107.0 kg WT: 235.4 lb BMI: 39.3 General: alert, no acute distress ENMT: oral mucosa moist, no pharyngeal erythema or exudate Cardiovascular: regular rate and rhythm, normal peripheral perfusion Respiratory: Lungs CTA, respirations non labored Extremities: no deformity, no trauma Neurological: oriented x 4, LOC appropriate for age, CN II-XII intact, motor strength equal & normal bilaterally, speech normal Abdomen: Postoperative operative scar noted in the right upper quadrant. Assessment/Plan 1. Type 2 diabetes mellitus with morbid obesity (E11.69: Type 2 diabetes mellitus with other specified complication) Patient is not well controlled today. We will adjust medication today to help with better control. We will see the patient back in 3 months for recheck on A1c. 2. Gout (M10.9: Gout, unspecified) Patient is not having any issues at this time. We will remove the allopurinol and will use the meloxicam for this. 3. HTN (hypertension) (I10: Essential (primary) hypertension) Patient's blood pressure is elevated today. Patient was supposed to be on her hydrochlorothiazide and lisinopril 1 tab twice a day. That was not how it was done, so we will go ahead and change that and we will recheck at the patient's next visit. 4. ELY (obstructive sleep apnea) (G47.33: Obstructive sleep apnea (adult) (pediatric)) Continue CPAP. 5. Morbid obesity due to excess calories (E66.01: Morbid (severe) obesity due to excess calories) Diet and exercise advised. 6. Aortic atherosclerosis (I70.0: Atherosclerosis of aorta) Patient is not on a statin or aspirin. This will be discussed further at next visit. I will recheck labs at that time. 7. BMI 39.0-39.9,adult (Z68.39: Body mass index [BMI] 39.0-39.9, adult) BMI education given. 8. Class 1 obesity due to excess calories in adult (E66.09: Other obesity due to excess calories) Diet and exercise advised. 9. Nonsmoker (Z78.9: Other specified health status) Please continue not to smoke. 10. Peripheral neuropathy (G62.9: Polyneuropathy, unspecified) We will go ahead and refill the gabapentin to see if this helps the patient with the pain again. Portions of this record may have been created with voice recognition artificial intelligence software, specifically [employer], [employer] and or [employer]. Substitutions may have occurred due to the inherent limitations of voice recognition and artificial intelligence software. ATTESTATION: Documentation services were performed after patient or guardian consented to allow [employer] to record this visit. RADHA risk control specialist and provider reviewed before signing. RADHA: Zak Mtz. (more content not included)... Normal [facility] Comment on above: Result Comment: Elec tronically Signed By: Deven Bronson MD\.br\Date and Time Signed: 10/06/23 10:02 EST\.br\Electronically Co-Signed By: Zak Mtz\.br\Date and Time Co-Signed: 10/04/23 13:09 EST Pre-Visit Planningon 024 Pre-Visit Planning - From: Amanda Winslow To: Deven Bronson MD; Sent: 10/03/2023 13:34:14 EST Subject: Pre-Visit Planning Due Date/Time: 10/03/2023 13:34:00 EST Caller Name: DAKSHA CORLEY; Caller Number: , Az Dr. Bronson. During a pre-visit planning chart review, I noted the following documentation in the medical record: [employer] Facesheet: LETICIA. I do not find any clinical indicators to support either of these diagnoses located in [facility]. However, based on listed Providers medical records may be located at Dr. King's office or [facility]. If you have any questions, please feel free to contact me at extension [phone]. Thank you! Amanda Winslow LPN From: Deven Bronson MD To: [facility] - Clinical; Sent: 10/03/2023 15:36:08 EST Subject: FW: Pre-Visit Planning Caller Name: DAKSHA CORLEY; Caller Number: H , M Can we look in the old system for this? From: Shannon León LPN ([facility] - Clinical) To: Deven Bronson MD; Sent: 10/04/2023 14:39:35 EST Subject: RE: Pre-Visit Planning Caller Name: DAKSHA CORLEY; Caller Number: H , M I found an old Ct scan of her and scanned it in which shows the liver steatosis, didn't find any records for the inflammatory polyarthropathy From: Deven Bronson MD To: Amanda Winslow; Sent: 10/05/2023 13:22:35 EST Subject: FW: Pre-Visit Planning Caller Name: DAKSHA CORLEY; Caller Number: H , M Here is what they found. Normal [address] [place] [address] Ambulatory Visit Summaryon 0 10-04-2023 Ambulatory Visit Summary DAKSHA CORLEY Nat :1950 Visit Date:10/04/2023 Ambulatory Visit Instructions Your Diagnosis Type 2 diabetes mellitus with morbid obesity Gout HTN (hypertension) ELY (obstructive sleep apnea) Morbid obesity due to excess calories Aortic atherosclerosis BMI 39.0-39.9,adult Class 1 obesity due to excess calories in adult Nonsmoker Your Care Team Attending Physician - Deven Bronson MD Primary Care Physician - Deven Bronson MD This Is Your Medications List Misc Prescription (Blood pressure cuff-wrist) Misc Prescription (Misc DME Prescription) Misc Prescription (Misc DME Prescription) Misc Prescription (TEST STRIPS AND LANCETS) Non-Formulary Medication (equate sleep aid) allopurinol (allopurinol 100 mg Tab) ascorbic acid (ascorbic acid 1000 mg oral tablet) cyanocobalamin (cyanocobalamin 100 mcg oral tablet) cyclobenzaprine (cyclobenzaprine 5 mg Tab) gabapentin (gabapentin 100 mg Cap) glipiZIDE (glipiZIDE 5 mg Tab) hydrochlorothiazide-li sinopril (hydrochlorothiazide-l isinopril 12.5 mg-20 mg Tab) meloxicam (meloxicam 15 mg Tab) metformin (metformin 500 mg Tab) oxybutynin (oxybutynin 5 mg ER Tab) pantoprazole (Pantoprazole [address] Tab) Procedures Performed Cystoscopy and retrograde pyelography (03/20/2020), Abdominal hysterectomy, Appendectomy, Arthroplasty of the hip, Colonoscopy, Gall bladder, H/O: tubal ligation, Partial resection of colon, Tonsillectomy and adenoidectomy, Total knee arthroplasty, Total knee arthroplasty. Discharge Vitals Temperature (Temporal Artery) 36.3 ?C Heart Rate (Peripheral) 84 Respiratory Rate 16 Blood Pressure 156/98 Height 165 cm Height 65 in Weight 107.0 kg Weight 235.4 lb BMI 39.3 What to do next Scheduled Follow-Up Appointments Tuesday 10:00 AM EDT With: Deven Bronson MD Where: [facility] [place] Normal [facility] Patient Educationon 10-04-19 Patient Education Nutrition BMI for Adults What is BMI? Body mass index (BMI) is a number that is calculated from a person's weight and height. BMI can help estimate how much of a person's weight is composed of fat. BMI does not measure body fat directly. Rather, it is an alternative to procedures that directly measure body fat, which can be difficult and expensive. BMI can help identify people who may be at higher risk for certain medical problems. What are BMI measurements used for? BMI is used as a screening tool to identify possible weight problems. It helps determine whether a person is obese, overweight, a healthy weight, or underweight. BMI is useful for: ? Identifying a weight problem that may be related to a medical condition or may increase the risk for medical problems. ? Promoting changes, such as changes in diet and exercise, to help reach a healthy weight. BMI screening can be repeated to see if these changes are working. How is BMI calculated? BMI involves measuring your weight in relation to your height. Both height and weight are measured, and the BMI is calculated from those numbers. This can be done either in [place] or metric measurements. Note that charts and online BMI calculators are available to help you find your BMI quickly and easily without having to do these calculations yourself. To calculate your BMI in [place] measurements: 1. Measure your weight in pounds (lb). 2. Multiply the number of pounds by 703. ? For example, for a person who weighs 180 lb, multiply that number by 703, which equals 126,540. 3. Measure your height in inches. Then multiply that number by itself to get a measurement called inches squared. ? For example, for a person who is 70 inches tall, the inches squared measurement is 70 inches x 70 inches, which equals 4,900 inches squared. 4. Divide the total from step 2 (number of lb x 703) by the total from step 3 (inches squared): 126,540 ? 4,900 = 25.8. This is your BMI. To calculate your BMI in metric measurements: 1. Measure your weight in kilograms (kg). 2. Measure your height in meters (m). Then multiply that number by itself to get a measurement called meters squared. ? For example, for a person who is 1.75 m tall, the meters squared measurement is 1.75 m x 1.75 m, which is equal to 3.1 meters squared. 3. Divide the number of kilograms (your weight) by the meters squared number. In this example: 70 ? 3.1 = 22.6. This is your BMI. What do the results mean? BMI charts are used to identify whether you are underweight, normal weight, overweight, or obese. The following guidelines will be used: ? Underweight: BMI less than 18.5. ? Normal weight: BMI between 18.5 and 24.9. ? Overweight: BMI between 25 and 29.9. ? Obese: BMI of 30 or above. Keep these notes in mind: ? Weight includes both fat and muscle, so someone with a muscular build, such as an athlete, may have a BMI that is higher than 24.9. In cases like these, BMI is not an accurate measure of body fat. ? To determine if excess body fat is the cause of a BMI of 25 or higher, further assessments may need to be done by a health care provider. ? BMI is usually interpreted in the same way for men and women. Where to find more information For more information about BMI, including tools to quickly calculate your BMI, go to these websites: ? Centers for Disease Control and Prevention: www.cdc.gov ? [place] Heart Association: www.heart.org ? National Heart, Lung, and Blood [place]: www.nhlbi.nih.gov Summary ? Body mass index (BMI) is a number that is calculated from a person's weight and height. ? BMI may help estimate how much of a person's weight is composed of fat. BMI can help identify those who may be at higher risk for certain medical problems. ? BMI can be measured using [place] measurements or metric measurements. ? BMI charts are used to identify whether you are underweight, normal weight, overweight, or obese. This information is not intended to replace advice given to you by your health care provider. Make sure you discuss any questions you have with your health care provider. Document Revised: 06/04/2020 Document Reviewed: 04/11/2020 [employer] Patient Education ? 2022 [employer] software. [facility] Lab Reportson 10-03-2023 Lab Reports [id number] [facility] Pre-Visit Planningon 024 Pre-Visit Planning - From: Amanda Winslow To: Audie BIGGS, Deven Alfredo; Sent: 10/03/2023 13:26:43 EST Subject: Pre-Visit Planning Due Date/Time: 10/03/2023 13:26:00 EST Caller Name: DAKSHA CORLEY; Caller Number: H , M Az Dr. Bronson. During a pre-visit planning chart review, I noted the following documentation in the medical record: Current Problem List: Type 2 diabetes mellitus with morbid obesity, HTN, and ELY. Current Medication List: glipizide, hydrochlorothiazide-li sinopril, and metformin. 02/20/2020 CT Abdomen/Pelvis w/o Contrast (page 1): Based on your medical judgment can you please clarify if any of the following conditions are present? I can update the Chronic Problem List with your response if you would like. -Aortic atherosclerosis -Other (please specify): In responding to this request, please exercise your independent professional judgement. The fact that a question is asked does not imply that any particular answer is desired or expected. If you have any questions, please feel free to contact me at extension [phone]. Thank you! Amanda Winslow LPN From: Deven Bronson MD To: Amanda Winslow; Sent: 10/03/2023 15:35:14 EST Subject: RE: Pre-Visit Planning Caller Name: DAKSHA CORLEY; Caller Number: Wayne , M -Aortic atherosclerosis Normal [address] [place] [address] Pre-Visit Planningon 023 Pre-Visit Planning - From: Sonia RODRIGUEZ, Jodi To: Deven Bronson MD; Sent: 07/29/2023 10:55:23 EDT Subject: Pre-Visit Planning Due Date/Time: 07/29/2023 10:55:00 EDT Caller Name: DAKSHA CORLEY; Caller Number: H , M Az Dr. Bronson, *Based on your response below, [...] feel free to contact me at extension [phone]. Thank you! CHELY Reddy, RN, CCM, CCDS, CCDS-O From: Audie BIGGS, Deven Alfredo To: Sonia RODRIGUEZ, Jodi; Sent: 08/01/2023 11:51:17 EST Subject: RE: Pre-Visit Planning Caller Name: DAKSHA CORLEY; Caller Number: Wayne , Nat Its type 2. Thank you Normal [address] [facility] XR FOOT LT MIN 3 VIEWSon XR [...] by: TARAS WILEY Date: 2022-11-21 01:25 Normal [facility] MARQUEZ by IFAon 09-09-2022 Antinuclear Antibodies, IFA Negative Normal [facility] Comment on above: Result Comment: Nega tive <1:80 Borderline 1:80 Positive >1:80 ICAP nomenclature: AC-0 For more information about Hep-2 cell patterns use ANApatterns.org, the official website for the International Consensus on Antinuclear Antibody (MARQUEZ) Patterns (ICAP). Performed By: #### A NAIFA ####[facility] [address] [place] [address]DrPastora Cortes ANTISTREPTOLYSIN O AB (ASO)o n 09-08-2022 Antistreptolysin O Ab 104.5 IU/mL Normal 0.0-200.0 [facility] Comment on above: Performed By: #### A SOAB #### [facility] [address] [address] [address] Marcella Cortes RHEUMATOID FACTORon 09-08-20 RA Latex Turbid. <10.0 Normal <14.0 [facility] Comment on above: Performed By: #### R F #### [facility] [address] [place] [address] Dr. Marcella Cortes CBC AUTO DIFFon 09-07-2022 BASO # 0.0 103/ul Normal 0.0-0.1 [facility] Comment on above: Performed By: #### C BC ####[facility] [address] [address]Dr. Marcella Cortes Basophils/100 WBC (Bld) 0.5 % Normal 0.2-2.0 [facility] Comment on above: Performed By: #### C BC ####[facility] [address] [place] [address]DrPastora Cortes EO # 0.1 103/ul Normal 0.0-0.7 [facility] Comment on above: Performed By: #### C BC ####[facility] [address] [address]DrPastora Cortes Eosinophils/100 WBC (Bld) 1.4 % Normal 0.9-7.0 [facility] Comment on above: Performed By: #### C BC ####[facility] [address] [address]DrPastora Cortes Erythrocyte distribution width (RBC) [Ratio] 12.6 % Normal 11.0-15.0 [facility] Comment on above: Performed By: #### C BC ####[facility] [address] [place] [address]Dr. Marcella Cortes Hematocrit (Bld) [Volume fraction] 37.1 % Normal 36.0-48.0 [facility] Comment on above: Performed By: #### C BC ####[facility] [address] [place] [address]Dr. Marcella Sebastian Hemoglobin (Bld) [Mass/Vol] 12.4 g/dL Normal 12.0-16.0 [facility] Comment on above: Performed By: #### C BC ####[facility] [address] [place] [address]Dr. Marcella Cortes IG # 0.03 10e3/ul Normal 0.00-0.03 [facility] Comment on above: Performed By: #### C BC ####[facility] [address] [place], [place] [address]Dr. Marcella Cortes IG % 0.5 % Normal 0.0-0.5 [facility] Comment on above: Performed By: #### C BC ####[facility] [address] [place], [place] [address]Dr. Marcella Cortes LYMPH # 2.4 103/ul Normal 1.2-3.8 [facility] Comment on above: Performed By: #### C BC ####[facility] [address] [place], [place] [address]Dr. Marcella Cortes Lymphocytes/100 WBC (Bld) 36.2 % Normal 20.5-60.0 [facility] Comment on above: Performed By: #### C BC ####[facility] [address] [place], [place] [address]Dr. Britneyjeffrey Cortes MANUAL DIFF REQ NO Normal [facility] Comment on above: Performed By: #### C BC ####[facility] [address] [place], [place] [address]Dr. Britneyjeffrey Cortes MCH (RBC) [Entitic mass] 30.3 pg Normal 26.7-34.0 [facility] Comment on above: Performed By: #### C BC ####[facility] [address] [place], [place] [address]Dr. Marcella Cortes MCHC (RBC) [Mass/Vol] 33.4 g/dL Normal 29.9-35.2 [facility] Comment on above: Performed By: #### C BC ####[facility] [address] [place] [id number]. Marcella Cortes MCV (RBC) [Entitic vol] 90.7 fL Normal 81.0-99.0 [facility] Comment on above: Performed By: #### C BC ####[facility] [address] [place] [address]Dr. Marcella Sebastian MONO # 0.4 103/ul Normal 0.3-0.8 [facility] Comment on above: Performed By: #### C BC ####[facility] [address] [place] [address]Dr. Britneyjeffrey Cortes Monocytes/100 WBC (Bld) 5.9 % Normal 1.7-12.0 [facility] Comment on above: Performed By: #### C BC ####[facility] [address] [place], [place] [address]Dr. Marcella Cortes NEUT # 3.7 103/ul Normal 1.4-6.5 [facility] Comment on above: Performed By: #### C BC ####[facility] [address] [place] [id number]. Marcella Sebastian Neutrophils/100 WBC (Bld) 55.5 % Normal 43.0-75.0 [facility] Comment on above: Performed By: #### C BC ####[facility] [address] [place] [address]Dr. Marcella Sebastian Platelet mean volume (Bld) [Entitic vol] 8.7 fL Critically low 9.5-13.5 [facility] Comment on above: Performed By: #### C BC ####[facility] [address] [place] [id number]. Marcella Sebastian PLT 224 103/ul Normal 150-450 [facility] Comment on above: Performed By: #### C BC ####[facility] [address] [place] [address]Dr. Marcella Cortes RBC 4.09 106/ul Critically low 4.20-5.40 [facility] Comment on above: Performed By: #### C BC ####[facility] [address] [place] [address]Dr. Marcella Cortes WBC 6.7 103/ul Normal 4.0-11.0 [facility] Comment on above: Performed By: #### C BC ####[facility] [address] [place] [address]Dr. Marcella Cortes CRPon 09-07-2022 CRP 0.7 mg/dL Normal <=1.0 [facility] Comment on above: Performed By: #### C RP, URIC, LIPID, CMP #### [facility] [address] [address] [address] Marcella Cortes GLYCOHEMOGLOBIN A1Con 2021 ADA RECOMMENDATION SEE BELOW Normal [facility] Comment on above: Result Comment: ADA RECOMMENDED LIMIT 4.0 - 6.0 ADA THERAPEUTIC TARGET < 7.0 ACTION SUGGESTED > 7.0 Performed By: #### A 1C ####[facility] [address] [place] [address]Dr. Marcella Sebastian Glucose [Mass/Vol] 186 mg/dL Normal [facility] Comment on above: Performed By: #### A 1C ####[facility] [address] [place] [address]Dr. Britneyjeffrey Cortes HbA1c (Bld) [Mass fraction] 8.1 % Critically high 4.5-6.2 [facility] Comment on above: Performed By: #### A 1C ####[facility] [address] [place] [address]DrPastora Cortes LIPID PROFILEon 09-07-2022 CHOL-HDL RATIO NORM SEE BELOW Normal [facility] Comment on above: Result Comment: 3.3 - 4.4 LOW RISK 4.4 - 7.1 AVERAGE RISK 7.1 - 11.0 MODERATE RISK >11.0 HIGH RISK Performed By: #### C RP, URIC, LIPID, CMP #### [facility] [address] [address] [address] Marcella Cortes Cholesterol [Mass/Vol] 187 mg/dL Normal <=200 [facility] Comment on above: Performed By: #### C RP, URIC, LIPID, CMP #### [facility] [address] [place] [address] Dr. Marcella Cortes Cholesterol in HDL [Mass/Vol] 44 mg/dL Normal 40-60 [facility] Comment on above: Performed By: #### C RP, URIC, LIPID, CMP #### [facility] [address] [place] [address] Dr. Marcella Cortes Cholesterol in LDL [Mass/Vol] 97.0 mg/dL Normal [facility] Comment on above: Performed By: #### C RP, URIC, LIPID, CMP #### [facility] [address] [place] [address] Dr. Marcella Cortes Cholesterol.total/C holesterol in HDL [Mass ratio] 4.3 {ratio} Normal [facility] Comment on above: Performed By: #### C RP, URIC, LIPID, CMP #### [facility] [address] [place] [address] Dr. Marcella Cortes HDL NORMAL > or = 60 mg/dl - LO W CARDIOVASCULAR RISK <40 mg/dl - HIGH CARDIOVASCULAR RISK Normal [facility] Comment on above: Performed By: #### C RP, URIC, LIPID, CMP #### [facility] [address] [place] [address] Dr. Marcella Cortes LDL CALC NORMAL SEE BELOW Normal [facility] Comment on above: Result Comment: <100 mg/dl OPTIMAL 100 - 129 mg/dl NEAR OR ABOVE OPTIMAL 130 - 159 mg/dl BORDERLINE HIGH 160 - 189 mg/dl HIGH >190 mg/dl VERY HIGH Performed By: #### C RP, URIC, LIPID, CMP #### [facility] [address] [place] [address] Dr. Marcella Cortes Triglyceride [Mass/Vol] 230 mg/dL Critically high <=150 [facility] Comment on above: Performed By: #### C RP, URIC, LIPID, CMP #### [facility] [address] [place] [address] Dr. Marcella Cortes VLDL CALC 46.0 mg/dL Normal [facility] Comment on above: Performed By: #### C RP, URIC, LIPID, CMP #### [facility] [address] [address] [address] Marcella Cortes PROF 14(COMP METB)on 022 Albumin [Mass/Vol] 3.8 g/dL Normal 3.4-5.0 [facility] Comment on above: Performed By: #### C RP, URIC, LIPID, CMP #### [facility] [address] [place] [address] Dr. Marcella Cortes Albumin/Globulin [Mass ratio] 0.9 {ratio} Normal [facility] Comment on above: Performed By: #### C RP, URIC, LIPID, CMP #### [facility] [address] [place] [address] Dr. Marcella Cortes ALP [Catalytic activity/Vol] 46 U/L Normal 46-116 [facility] Comment on above: Performed By: #### C RP, URIC, LIPID, CMP #### [facility] [address] [place] [address] Dr. Marcella Cortes ALT [Catalytic activity/Vol] 29 U/L Normal 14-59 [facility] [facility] Comment on above: Performed By: #### C RP, URIC, LIPID, CMP #### [facility] [address] [place] [address] Dr. Marcella Cortes Anion gap [Moles/Vol] 16.2 mmol/L Normal [facility] Comment on above: Performed By: #### C RP, URIC, LIPID, CMP #### [facility] [address] [place] [address] Dr. Marcella Cortes AST [Catalytic activity/Vol] 20 U/L Normal 15-37 [facility] Comment on above: Performed By: #### C RP, URIC, LIPID, CMP #### [facility] [address] [place] [address] Dr. Marcella Cortes Bilirubin [Mass/Vol] 0.4 mg/dL Normal 0.2-1.0 [facility] Comment on above: Performed By: #### C RP, URIC, LIPID, CMP #### [facility] [address] [place] [address] Dr. Marcella Cortes Calcium [Mass/Vol] 9.2 mg/dL Normal 8.5-10.1 [facility] Comment on above: Performed By: #### C RP, URIC, LIPID, CMP #### [facility] [address] [place] [address] Dr. Marcella Cortes Chloride [Moles/Vol] 98 mmol/L Normal 98-107 [facility] Comment on above: Performed By: #### C RP, URIC, LIPID, CMP #### [facility] [address] [place] [address] Dr. Marcella Cortes CO2 [Moles/Vol] 26.1 mmol/L Normal 21.0-32.0 [facility] Comment on above: Performed By: #### C RP, URIC, LIPID, CMP #### [facility] [address] [place] [address] Dr. Marcella Cortes Creatinine [Mass/Vol] 0.84 mg/dL Normal 0.55-1.02 [facility] Comment on above: Performed By: #### C RP, URIC, LIPID, CMP #### [facility] [address] [place] [address] Dr. Marcella Cortes EGFR-AF TAIWANESE >60 Normal >=60 [facility] Comment on above: Performed By: #### C RP, URIC, LIPID, CMP #### [facility] [address] [place] [address] Dr. Marcella Cortes EGFR-NON AF TAIWANESE >60 Normal >=60 [facility] Comment on above: Performed By: #### C RP, URIC, LIPID, CMP #### [facility] [address] [place] [address] Dr. Marcella Cortes Globulin (S) [Mass/Vol] 4.0 g/dL Normal [facility] Comment on above: Performed By: #### C RP, URIC, LIPID, CMP #### [facility] [address] [place] [address] Dr. Marcella Cortes Glucose [Mass/Vol] 163 mg/dL Critically high 74-106 [facility] Comment on above: Performed By: #### C RP, URIC, LIPID, CMP #### [facility] [address] [place] [address] Dr. Marcella Cortes Potassium [Moles/Vol] 4.3 mmol/L Normal 3.5-5.1 [facility] Comment on above: Performed By: #### C RP, URIC, LIPID, CMP #### [facility] [address] [place] [address] Dr. Marcella Cortes Protein [Mass/Vol] 7.8 g/dL Normal 6.4-8.2 [facility] Comment on above: Performed By: #### C RP, URIC, LIPID, CMP #### [facility] [address] [place] [address] Dr. Marcella Cortes Sodium [Moles/Vol] 136 mmol/L Normal 136-145 [facility] Comment on above: Performed By: #### C RP, URIC, LIPID, CMP #### [facility] [address] [place] [address] Dr. Marcella Cortes Urea nitrogen [Mass/Vol] 15.0 mg/dL Normal 7.0-18.0 [facility] Comment on above: Performed By: #### C RP, URIC, LIPID, CMP #### [facility] [address] [place] [address] Dr. Marcella Cortes Urea nitrogen/Creatinine [Mass ratio] 17.9 mg/mg Normal [facility] Comment on above: Performed By: #### C RP, URIC, LIPID, CMP #### [facility] [address] [place] [address] Dr. Marcella Cortes URIC ACID SERUMon 09-07-2022 Urate [Mass/Vol] 7.4 mg/dL Critically high 2.6-6.0 [facility] Comment on above: Performed By: #### C RP, URIC, LIPID, CMP #### [facility] [address] [place] [address] CARDIAC SCORINGon 022 CT CARDIAC SCORING Addendum Begins Patient Name: DAKSHA CORLEY ADDENDUM: Technical: The following is to serve [...] LUNA MD Addendum Ends Patient Name: DAKSHA CORLEY STUDY: CT CARDIAC SCORING; 03/17/2022 3:13 pm INDICATION: I10 Essential (primary) hypertension E11.8 Type 2 diabetes mellitus with unspecified complications . COMPARISON: None. ACCESSION NUMBER(S): [id number] ORDERING CLINICIAN: TERRI KING TECHNIQUE: Using prospective ECG gating, CT scan [...] al. JACC 2015 ([email or web address].doi.org/10. [email or web address]/[email or web address] [email or web address]) Reading Block Cuber: Dr. Jewel Vincent, Date: 03/18/2022 10:08 am Electronically signed by: MACO LUNA MD Normal [facility] US BREAST LEFT LIMITEDon US BREAST LEFT LIMITED Patient: DAKSHA CORLEY Exam Date: 01/13/2022 : 1950 Gender:F Ordering : DR TERRI KING . Admission #: [id number] Family : Order #: [id number] CLICK HERE TO VIEW EXAM RADIOLOGY REPORT [...] Forde M.D. on 01/13/2022 at 10:54 Normal [facility] MG MAMM SCREEN 3D CAMERON CADon 01-08-2022 MG MAMM SCREEN 3D CAMERON CAD Patient: DAKSHA CORLEY Exam Date: 01/08/2022 : 1950 Gender:F Ordering : DR TERRI KING . Admission #: [id number] Family : Order #: [id number] CLICK HERE TO VIEW EXAM RADIOLOGY REPORT [...] No Treatments None Family Cancers None LOCATION: [facility] BREAST COMPOSITION: Heterogeneously dense,which may obscure small [...] Manny Forde M.D. on 01/08/2022 at 15:21 Normal [facility] XR DEXA BONE DENSITYon 01-08 XR DEXA BONE DENSITY EXAMINATION: XR DEXA BONE DENSITY, 01/08/2022 9:59 AM EDT HISTORY: [...] Low Fracture Risk Electronically authenticated by: MANNY FORDE Date: 2022-01-08 11:07 Normal [facility] Vital Signs Date Time Vital Sign Value Performing Clinician Ton bowen 09-05-2023 10:00-0500 Body height 167.64 cm Jade Lillian Other [email or web address] Other 09-05-2023 10:00-0500 Body mass index (BMI) [Ratio] 37.12 kg/m2 Jade Lillian Other [email or web address] Other 09-05-2023 10:00-0500 Body weight 104.33 kg Jade Lillian Other [email or web address] Other 05-23-2023 11:15-0400 Body height 167.64 cm Jade Lillian Other [email or web address] Other 05-23-2023 11:15-0400 Body mass index (BMI) [Ratio] 37.12 kg/m2 Jade Lillian Other [email or web address] Other 05-23-2023 11:15-0400 Body weight 104.33 kg Jade Lillian Other [email or web address] Other 03-30-2023 11:15-0400 Body height 167.64 cm Jade Lillian Other [email or web address] Other 03-30-2023 11:15-0400 Body mass index (BMI) [Ratio] 37.12 kg/m2 Jade Lillian Other [email or web address] Other 03-30-2023 11:15-0400 Body weight 104.33 kg Jade Lillian Other [email or web address] Other 02-16-2023 11:15-0400 Body height 167.64 cm Jade Lillian Other [email or web address] Other 12-08-2022 12:00-0400 Body height 167.64 cm Jade Childs Other [email or web address] Other 12-08-2022 12:00-0400 Body mass index (BMI) [Ratio] 37.12 kg/m2 Jade Lillian Other [email or web address] Other 12-08-2022 12:00-0400 Body weight 104.33 kg Jade Lillian Other [email or web address] Other 11-24-2022 11:30-0500 Body height 167.64 cm Jade Lillian Other [email or web address] Other 11-24-2022 11:30-0500 Body mass index (BMI) [Ratio] 37.93 kg/m2 Jade Lillian Other [email or web address] Other 11-24-2022 11:30-0500 Body weight 106.6 kg Jade Lillian Other [email or web address] Other Encounters Encounter Date Encounter Type Care Provider Facility Start: 06-27-2025 ambulatory MD Deven Bronson [facility]il ity:[facility] Start: 10-02-2024 ambulatory MD Deven Bronson [facility] Start: 09-28-2024 ambulatory MD Deven Bronson [facility]il ity:[facility] Start: 06-26-2024 End: 06-26-2024 ambulatory MD Deven Bronson [facility] Start: 03-27-2024 End: 03-27-2024 ambulatory MD Deven Bronson Facility: [facility] Start: 01-03-2024 End: 01-03-2024 ambulatory MD Deven Bronson Facility: [facility] Start: 10-04-2023 End: 10-04-2023 ambulatory MD Deven Bronson [facility] Start: 09-05-2023 End: 09-05-2023 ambulatory Jade Childs Other [email or web address] Other Start: 09-05-2023 Office outpatient vi sit 15 minutes Jade Childs [facility] Start: 08-02-2023 End: 08-02-2023 ambulatory MD Deven Bronson [facility] Start: 05-23-2023 End: 05-23-2023 ambulatory Jade Childs Other [email or web address] Other Start: 05-23-2023 Office outpatient vi sit 15 minutes Jade Childs [facility] Start: 03-30-2023 End: 03-30-2023 ambulatory Jade Childs Other [email or web address] Other Start: 03-30-2023 Office outpatient vi sit 15 minutes Jade Childs [facility] Start: 02-16-2023 End: 02-16-2023 ambulatory Jade Childs Other [email or web address] Other Start: 02-16-2023 Office outpatient vi sit 15 minutes Jade Childs [facility] Start: 01-19-2023 End: 01-19-2023 ambulatory Ana Maria Glasgow Other [email or web address] Other Start: 01-19-2023 Office outpatient vi sit 15 minutes Ana Maria Glasgow [facility] Start: 12-29-[address] TERRI KING . Facil ity:[facility] Start: 12-22-2022 End: 12-22-2022 ambulatory Jade Childs Other [email or web address] Other Start: 12-22-2022 Office outpatient vi sit 15 minutes Jade Childs [facility] Start: 03-29-2023 Telephone encounter Jade Childs [facility] Start: 12-08-2022 End: 12-08-2022 ambulatory Jade Lillian Other [email or web address] Other Start: 12-08-2022 Postop follow up vis it related to original px Jade Childs [facility] Start: 11-24-2022 End: 11-24-2022 ambulatory Jade Childs Other [email or web address] Other Start: 11-24-2022 Office outpatient ne w 30 minutes Jade Childs [facility] Start: 11-21-2022 End: 11-21-[address] TERRI KING . Facility: Start: 09-07-2022 End: 09-08-[address] TERRI KING . Facility: Start: 01-13-2022 End: 01-14-[address] TERRI KING . Facility:[facility] Start: 01-08-2022 End: 01-09-[address] TERRI KING . Facility: Payers Date Payer Category Payer Medicare [id number] 2.1 [id number] 1959 Unknown [id number] 2.1 [id number] 1950 Unknown [id number] 2.16.84 [id number] 1950 Unknown [id number] 2.16.84 [id number] 1950 Unknown [id number] 2.16.84 0.1.989944.3.579.2.593 1950 Unknown [id number] 2.16.84 0.1.416650.3.579.2.593 1950 Unknown [id number] 2.16.84 0.1.606964.3.579.2.593 1950 Unknown [id number] 2.16.8 40.1.475869.3.579.2.727 1950 Unknown [id number] 2.16.8 40.1.411057.3.579.2.727 1950 Unknown [id number] 2.16.8 40.1.091600.3.579.2.727 1950 Unknown [id number] 2.16.8 40.1.138751.3.579.2.727 1950 Unknown [id number] 2.16.8 40.1.310910.3.579.2.727 1950 Unknown [id number] 2.16.8 40.1.698563.3.579.2.727 1950 Unknown [id number] 2.16.8 40.1.318808.3.579.2.727 1950 Unknown [id number] 2.16.8 40.1.465372.3.579.2.727 1950 Unknown [id number] 2.16.8 40.1.315222.3.579.2.727 Social History Date Type Detail Facility Unknown if ever smoked [email or web address] Other Sex Assigned At Sex Assigned At Bir th [email or web address] Other Clinical Notes 02-24-2019 to 06-26-2024 Note Date & Type Note Facility 06-26-2024 Note Patient Education Nutrition BMI for Adults Body mass index (BMI) is a number found using a person's weight and height. BMI can help tell how much of a person's weight is made up of fat. BMI does not measure body fat directly. It is used instead of tests that directly measure body fat, which can be difficult and expensive. What are BMI measurements used for? BMI is useful to: ? Find out if your weight puts you at higher risk for medical problems. ? Help recommend changes, such as in diet and exercise. This can help you reach a healthy weight. BMI screening can be done again to see if these changes are working. How is BMI calculated? Your height and weight are measured. The BMI is found from those numbers. This can be done with [place] or metric measurements. Note that charts and online BMI calculators are available to help you find your BMI quickly and easily without doing these calculations. To calculate your BMI in [place] measurements: 1. Measure your weight in pounds (lb). 2. Multiply the number of pounds by 703. ? So, for an adult who weighs 150 lb, multiply that number by 703: 150 x 703, which equals 105,450. 3. Measure your height in inches. Then multiply that number by itself to get a measurement called inches squared. ? So, for an adult who is 70 inches tall, the inches squared measurement is 70 inches x 70 inches, which equals 4,900 inches squared. 4. Divide the total from step 2 (number of lb x 703) by the total from step 3 (inches squared): 105,450 ? 4,900 = 21.5. This is your BMI. To calculate your BMI in metric measurements: 1. Measure your weight in kilograms (kg). ? For this example, the weight is 70 kg. 2. Measure your height in meters (m). Then multiply that number by itself to get a measurement called meters squared. ? So, for an adult who is 1.75 m tall, the meters squared measurement is 1.75 m x 1.75 m, which equals 3.1 meters squared. 3. Divide the number of kilograms (your weight) by the meters squared number. In this example: 70 ? 3.1 = 22.6. This is your BMI. What do the results mean? BMI charts are used to see if you are underweight, normal weight, overweight, or obese. The following guidelines will be used: ? Underweight: BMI less than 18.5. ? Normal weight: BMI between 18.5 and 24.9. ? Overweight: BMI between 25 and 29.9. ? Obese: BMI of 30 or above. BMI is a tool and cannot diagnose a condition. Talk with your health care provider about what your BMI means for you. Keep these notes in mind: ? Weight includes fat and muscle. Someone with a muscular build, such as an athlete, may have a BMI that is higher than 24.9. In cases like these, BMI is not a correct measure of body fat. ? If you have a BMI of 25 or higher, your provider may need to do more testing to find out if excess body fat is the cause. ? BMI is measured the same way for males and females. Females usually have more body fat than males of the same height and weight. Where to find more information For more information about BMI, including tools to quickly find your BMI, go to: ? Centers for Disease Control and Prevention: cdc.gov ? [place] Heart Association: heart.org ? National Heart, Lung, and Blood [place]: nhlbi.nih.gov This information is not intended to replace advice given to you by your health care provider. Make sure you discuss any questions you have with your health care provider. Document Revised: 06/02/2023 Document Reviewed: 05/26/2023 [employer] Patient Education ? 2023 [employer]. [facility] 03-27-2024 Note Patient Education Nutrition BMI for Adults What is BMI? Body mass index (BMI) is a number that is calculated from a person's weight and height. BMI can help estimate how much of a person's weight is composed of fat. BMI does not measure body fat directly. Rather, it is an alternative to procedures that directly measure body fat, which can be difficult and expensive. BMI can help identify people who may be at higher risk for certain medical problems. What are BMI measurements used for? BMI is used as a screening tool to identify possible weight problems. It helps determine whether a person is obese, overweight, a healthy weight, or underweight. BMI is useful for: ? Identifying a weight problem that may be related to a medical condition or may increase the risk for medical problems. ? Promoting changes, such as changes in diet and exercise, to help reach a healthy weight. BMI screening can be repeated to see if these changes are working. How is BMI calculated? BMI involves measuring your weight in relation to your height. Both height and weight are measured, and the BMI is calculated from those numbers. This can be done either in [place] or metric measurements. Note that charts and online BMI calculators are available to help you find your BMI quickly and easily without having to do these calculations yourself. To calculate your BMI in [place] measurements: 1. Measure your weight in pounds (lb). 2. Multiply the number of pounds by 703. ? For example, for a person who weighs 180 lb, multiply that number by 703, which equals 126,540. 3. Measure your height in inches. Then multiply that number by itself to get a measurement called inches squared. ? For example, for a person who is 70 inches tall, the inches squared measurement is 70 inches x 70 inches, which equals 4,900 inches squared. 4. Divide the total from step 2 (number of lb x 703) by the total from step 3 (inches squared): 126,540 ? 4,900 = 25.8. This is your BMI. To calculate your BMI in metric measurements: 1. Measure your weight in kilograms (kg). 2. Measure your height in meters (m). Then multiply that number by itself to get a measurement called meters squared. ? For example, for a person who is 1.75 m tall, the meters squared measurement is 1.75 m x 1.75 m, which is equal to 3.1 meters squared. 3. Divide the number of kilograms (your weight) by the meters squared number. In this example: 70 ? 3.1 = 22.6. This is your BMI. What do the results mean? BMI charts are used to identify whether you are underweight, normal weight, overweight, or obese. The following guidelines will be used: ? Underweight: BMI less than 18.5. ? Normal weight: BMI between 18.5 and 24.9. ? Overweight: BMI between 25 and 29.9. ? Obese: BMI of 30 or above. Keep these notes in mind: ? Weight includes both fat and muscle, so someone with a muscular build, such as an athlete, may have a BMI that is higher than 24.9. In cases like these, BMI is not an accurate measure of body fat. ? To determine if excess body fat is the cause of a BMI of 25 or higher, further assessments may need to be done by a health care provider. ? BMI is usually interpreted in the same way for men and women. Where to find more information For more information about BMI, including tools to quickly calculate your BMI, go to these websites: ? Centers for Disease Control and Prevention: www.cdc.gov ? [place] Heart Association: www.heart.org ? National Heart, Lung, and Blood [place]: www.nhlbi.nih.gov Summary ? Body mass index (BMI) is a number that is calculated from a person's weight and height. ? BMI may help estimate how much of a person's weight is composed of fat. BMI can help identify those who may be at higher risk for certain medical problems. ? BMI can be measured using [place] measurements or metric measurements. ? BMI charts are used to identify whether you are underweight, normal weight, overweight, or obese. This information is not intended to replace advice given to you by your health care provider. Make sure you discuss any questions you have with your health care provider. Document Revised: 06/04/2020 Document Reviewed: 04/11/2020 [employer] Patient Education ? 2022 [employer]. [facility] 09-05-2023 Evaluation note Encounter Date Diagnosis Assessment Notes Aug, Rupture of left Achilles tendon, subsequent encounter [...] for refills if the medication is helping. [email or web address] Other 08-28-2023 Evaluation note* Encounter Date Diagnosis Assessment Notes Treatment Notes Treatment Clinical Notes Apr, Rupture of left Achilles tendon, [...] - M76.61) Apr, Neuropathy (ICD-10 - G62.9) [email or web address] Other 07-05-2023 Evaluation note* Encounter Date Diagnosis Assessment Notes Treatment Notes Treatment Clinical Notes Mar, Rupture of left Achilles tendon, [...] - M76.61) Mar, Neuropathy (ICD-10 - G62.9) [email or web address] Other 05-24-2023 Evaluation note* Encounter Date Diagnosis Assessment Notes Treatment Notes Treatment Clinical Notes January, Rupture of left Achilles tendon, [...] as documented in the electronic medical record. [email or web address] Other 04-26-2023 Evaluation note* Encounter Date Diagnosis Assessment Notes Treatment Notes Treatment Clinical Notes Dec, Rupture of left Achilles tendon, subsequent encounter (ICD-10 - S86.012D) Dec, Other Daksha returns w ith left ankle Achilles tendon tear. Patient is [...] in the office today and providing supervision. [email or web address] Other 03-29-2023 Evaluation note* Encounter Date Diagnosis Assessment Notes Treatment Notes Treatment Clinical Notes Nov, Rupture of left Achilles tendon, subsequent encounter (ICD-10 - S86.012D) Nov, Other Daksha returns w ith left ankle Achilles tendon tear. She is [...] exercise. We discussed starting to peel one brick layer of the heel lift each week. Continue with use of boot at this time. Continue with use of walker as needed. A prescription for physical therapy was provided today. [email or web address] Other 03-15-2023 Evaluation note* Encounter Date Diagnosis Assessment Notes Treatment Notes Treatment Clinical Notes Nov, Rupture of left Achilles tendon, subsequent encounter (ICD-10 - S86.012D) Nov, Other Daksha returns w ith left ankle Achilles tendon tear. She is [...] understanding and is agreeable to treatment plan. [email or web address] Other 03-01-2023 Evaluation note* Encounter Date Diagnosis Assessment Notes Treatment Notes Treatment Clinical Notes Nov, Rupture of right Achilles tendon, initial encounter (ICD-10 - S86.011A) Daksha presents with right ankle Achilles tendon tear. At this juncture we have discussed the findings and diagnosis as well as personally reviewed appropriate imaging and performed interpretation of related testing and examination with the patient in office today. Prior medical notes from [facility] and history have been reviewed. At [...] as documented in the electronic medical record. [email or web address] Other 06-01-2019 History general Narrative - Reported* Type Description Date Medical History Borderline Type 2 Diabetes Medical History Hypertension Medical History kidney Stones 02/2019 Surgical History Partial Bowel Removal 37 years ago Surgical History Tonsil & Adnoids Surgical History Appendectomy 1971 Surgical History Hysterectomy with Bladder Suspe nsion 1988 Surgical History Tubal Ligation Surgical History Bilateral Knee Replacement 2009 Surgical History LT Hospitalization History Pneumonia 09/2017 [email or web address] Other Evaluation noteNo InformationNort [employer] Other Summary Purpose Family History No Family History Records FoundNo Family History Records FoundNo Family History Records Found Advance Directives No Advanced Directives Records FoundNo Advanced Directives Records FoundNo Advanced Directives Records Found Additional Source Comments INFORMATION SOURCE (unrecogn ized section and content) DATE CREATED AUTHOR 03/20/2022 [facility] DATE CREATED AUTHOR AUTHOR'S ORGANIZ ATION 12/31/2022 [facility] DATE CREATED AUTHOR AUTHOR'S ORGANIZ ATION 07/03/2024 [place] Fajardo [facility] REASON FOR VISIT (unrecogniz ed section and [...] BE BASED ON THE PRIMARY CLINICAL RECORDS. [facility] [employer] [facility]. provides no warranty or guarantee of the accuracy or completeness of information in this document.
[2024-07-29 14:55] VITALS: BP 133/92; PULSE 97; TEMP 36.7; O2SAT 98; BMI 32.1
--- NOTE | 2024-07-29 14:59 | XR_ITS ---
The [address] [address] Patient Name: YESY DELGADO MRN: [id number] date: 1950 Sex: F Assigned Patient Location: ER Current Patient Location: ER Accession/Order Number: [id number] Exam Date: 07/29/2024 15:20 Report Date: 07/29/2024 15:54 At the request of: JAYLEN VICENTE Procedure: XR foot LT min 3V Exam: Radiographs: XR foot LT min 3V Reason for exam: pain Comparison: Plain films dated 11/21/2022 XR/XR foot LT min 3V IMPRESSION: Soft tissue swelling throughout the foot, correlate clinically. Degenerative changes scattered throughout the left foot. Fragmented x-rays calcaneal spur. Remainder of the left foot radiographs is unremarkable. Electronically authenticated by: ADITI VIDALES Date: 07/29/2024 15:54
--- NOTE | 2024-07-29 16:48 | CT_ITS ---
The [address] [address] Patient Name: YESY DELGADO MRN: [id number] date: 1950 Sex: F Assigned Patient Location: ER Current Patient Location: Accession/Order Number: [id number] Exam Date: 07/29/2024 16:56 Report Date: 07/29/2024 18:16 At the request of: JAYLEN VICENTE Procedure: CT foot LT wo con EXAM: CT foot LT wo con HISTORY: The patient is a 73-year-old female, trauma COMPARISON: Radiographs from 3:22 PM TECHNIQUE: CT images were obtained through the left foot without intravenous contrast and reformatted in 2 dimensions. Dose reduction techniques were achieved by using automated exposure control and/or adjustment of mA and/or kV according to patient size and/or use of iterative reconstruction technique. FINDINGS: The bone images demonstrate a nondisplaced fracture at the medial base of the second metatarsal, seen on axial image 77 and sagittal image 65. This may represent a subacute fracture, and this should be correlated with tenderness at this site. This is in the location of a Lisfranc fracture. However, there is no Lisfranc dislocation and the alignment of all of the tarsometatarsal joints appear to be anatomically aligned on this nonweightbearing study. There is also a nondisplaced fracture of the base of the fourth metatarsal, seen on coronal image 127 and axial image 99. This may also be subacute. There is what appears to be a healed transverse fracture of the base of the third metatarsal. No displaced fractures are seen throughout the left foot. All of the joints appear to be anatomically aligned. The soft tissue images demonstrate no abnormal fluid collections on this non-contrast enhanced study. CT/CT foot LT wo con IMPRESSION: Nondisplaced fractures of the bases of the second and fourth metatarsals, possibly subacute. Electronically authenticated by: YEE URBINA Date: 07/29/2024 18:16
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
[2024-07-29] MEDS: OXYCODONE HCL/ACETAMINOPHEN 5MG/325MG 1 TAB PO (19:26)
[2024-07-29 19:33] VITALS: BP 113/90; PULSE 83; O2SAT 94
== END 2024-07-29 19:33 | disposition home or self-care (01) ==
PROVIDERS: Emergency Provider Emergency Medicine; PCP Family Medicine
DX: S92.325A Nondisplaced fracture of second metatarsal bone, left foot, initial encounter for closed fracture (principal); S92.345A Nondisplaced fracture of fourth metatarsal bone, left foot, initial encounter for closed fracture; V03.90XA Pedestrian on foot injured in collision with car, pick-up truck or van, unspecified whether traffic or nontraffic accident, initial encounter
CPT/HCPCS: 29515; 73630; 73700; 99284

== ENCOUNTER 2024-08-15 09:18 | Outpatient (OUT) | payer OTHER, MEDICARE, SELFPAY ==
--- NOTE | 2024-08-15 09:23 | XR_ITS ---
The [address] [address] Patient Name: YESY DELGADO MRN: [id number] date: 1950 Sex: F Assigned Patient Location: [facility] Current Patient Location: Accession/Order Number: [id number] Exam Date: 08/15/2024 09:23 Report Date: 08/16/2024 06:58 At the request of: GRETCHEN VELASQUEZ Procedure: XR foot LT min 3V PROCEDURE: XR foot LT min 3V HISTORY: Left Foot Pain COMPARISON: XR foot left 07/29/2024, CT foot left 07/29/2024 FINDINGS: BONES:No visible fracture or dislocation. Degenerative enthesopathic spurring of the calcaneus. SOFT TISSUES:Images were obtained to cast material which limits evaluation. Mild soft tissue swelling. EFFUSION:None visible. OTHER: Negative. XR/XR foot LT min 3V IMPRESSION: 1. No visible fractures/acute abnormality. Known fractures involving base of second, third, and fourth metatarsals were only visible on the prior CT study. Electronically authenticated by: PLACIDO CALVO Date: 08/16/2024 06:58
== END 2024-08-15 09:19 | disposition home or self-care (01) ==
LOC: RAD 09:18
PROVIDERS: PCP Family Medicine; Visit Provider Podiatrist Foot & Ankle Surgery
DX: M79.672 Pain in left foot (principal); S92.325D Nondisplaced fracture of second metatarsal bone, left foot, subsequent encounter for fracture with routine healing; S92.335D Nondisplaced fracture of third metatarsal bone, left foot, subsequent encounter for fracture with routine healing; S92.345K Nondisplaced fracture of fourth metatarsal bone, left foot, subsequent encounter for fracture with nonunion
CPT/HCPCS: 73630

== ENCOUNTER 2024-08-29 12:48 | Outpatient (OUT) | payer MEDICARE, SELFPAY ==
--- NOTE | 2024-08-29 12:50 | XR_ITS ---
The [address] [address] Patient Name: YESY DELGADO MRN: [id number] date: 1950 Sex: F Assigned Patient Location: [facility] Current Patient Location: Accession/Order Number: [id number] Exam Date: 08/29/2024 13:00 Report Date: 08/30/2024 07:16 At the request of: GRETCHEN VELASQUEZ Procedure: XR foot LT min 3V PROCEDURE: XR foot LT min 3V COMPARISON: 08/15/2024 HISTORY: pain in left foot M79.672 FINDINGS: BONES:No acute fracture or dislocation. Mild to moderate degenerative changes with marginal osteophyte formation. Enthesopathic spurring of the calcaneus SOFT TISSUES:Negative. No visible soft tissue swelling. EFFUSION:None visible. OTHER: Negative. XR/XR foot LT min 3V IMPRESSION: Degenerative changes. Previously identified fractures are seen by plain film Electronically authenticated by: CARLOS YBARRA Date: 08/30/2024 07:16
== END 2024-08-29 12:49 | disposition home or self-care (01) ==
LOC: RAD 12:48
PROVIDERS: PCP Family Medicine; Visit Provider Podiatrist Foot & Ankle Surgery
DX: M79.672 Pain in left foot (principal); M77.32 Calcaneal spur, left foot
CPT/HCPCS: 73630

== ENCOUNTER 2024-09-12 13:04 | Outpatient (OUT) | payer OTHER, MEDICARE, SELFPAY ==
--- NOTE | 2024-09-12 | XR_ITS ---
The [address] [address] Patient Name: YESY DELGADO MRN: [id number] date: 1950 Sex: F Assigned Patient Location: [facility] Current Patient Location: Accession/Order Number: [id number] Exam Date: 09/12/2024 13:35 Report Date: 09/13/2024 06:25 At the request of: GRETCHEN VELASQUEZ Procedure: XR foot LT min 3V PROCEDURE: XR foot LT min 3V HISTORY: LEFT FOOT PAIN COMPARISON: XR foot left 08/29/2024 FINDINGS: BONES:Mild degenerative changes at the second third tarsal-metatarsal joints. Degenerative changes of the first metatarsophalangeal joint. Degenerative enthesopathic spurring of the calcaneus. SOFT TISSUES:No visible soft tissue swelling. EFFUSION:None visible. OTHER: Negative. XR/XR foot LT min 3V IMPRESSION: 1. Mild degenerative changes versus healing fractures at base of second third metatarsals. Prior CT describes nondisplaced fractures at base of second fourth metatarsals. Electronically authenticated by: PLACIDO CALVO Date: 09/13/2024 06:25
--- OUTSIDE RECORDS SUMMARY | 2024-09-12 13:26 | XMS_ITS | CCD ---
Author Organization [facility] Providers Care Validation Consultant Name Role Phone Jade Childs Unavailable FERNANDO [...] Nalbuphine; Translations: [Nubain] Drug Allergy Unknown [facility] Repository (9 sources) Sulfonamides (Antibiotic) Propensity to adverse reactions Unknown [employer] Other (1 source) bee venom Drug allergy (disorder) [facility] Repository (2 sources) HYDROmorphone; Translations: [Dilaudid] Drug Allergy 07-16-20 [facility] Repository (1 source) Sulfonamides (Antibiotic) Drug allergy (disorder) [facility] Repository (1 source) celecoxib; Translations: [CeleBREX] Drug Allergy [facility] Repository (1 source) Clarithromycin; Translations: [Biaxin] Drug Allergy [facility] Repository (1 source) Nalbuphine; Translations: [nalbuphine] Drug Allergy [facility] Repository (1 source) rofecoxib; Translations: [Vioxx] Drug Allergy [facility] Repository (1 source) sulfabenzamide / Sulfacetamide / sulfathiazole; Translations: [Sulfabenzamide/Mortensen lfacetamide/Sulfat hiazole] Drug Allergy 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 Normal [facility] Family Medicine Office/Clini c Noteon 07-02-2024 Family [...] Comments : wears corrective lens. Goes to [facility] yearly. Rachel Bolanos - 06/26/2024 14:44 EDT [...] 14:50:36 ED (more content not included)... Normal [facility] Comment on above: Result Comment: Elec tronically [...] Appointments Tuesday 9:20 AM EST With: Where: [address] [address]- Tuesday 1:15 PM EST With: Audie BIGGS, Deven Alfredo Where: [address] [id number]- 2024 2:30 PM EDT With: Where: [address] [address]- Medications What How Much When Why Instructions [...] oxybutynin (oxybu (more content not included)... Normal [facility] Ambulatory Visit Summary Ambulatory Visit Summary DAKSHA [...] EST With: Audie BIGGS, Deven Alfredo Where: [facility] [place] [id number]- Medications What How Much When Why Instructions [...] neuropathy Pos (more content not included)... Normal [facility] Family Medicine Office/Clini c Noteon 06-26-2024 Family [...] medicare to cover it. Fax to # [phone] ( [facility]) Needs refills of her her gabapentin, metformin, [...] in semaglutide dosing suggested. Ordered: A1c POC 00047 [facility] Internal Ambulatory Referral 2. HTN (hypertension) (I10: Essential (primary) hypertension) Management of essential hypertension was not a primary focus of today's discussion, but continued adherence to current treatment regimens is presumed. Ordered: A1c POC 11978 [facility] Internal Ambulatory Referral 3. Morbid (severe) obesity [...] enhance weight loss efficacy. Ordered: A1c POC 15318 [facility] Internal Ambulatory Referral 4. ELY (obstructive s (more content not included)... Normal [facility] Comment on above: Result Comment: Elec tronically [...] Follow-Up Appointments Tuesday 1:00 PM EDT Where: [facility] [place] Normal [facility] Family Medicine Office/Clini c Noteon 03-27-2024 Family [...] - No other issues Ordered: A1c POC 91504 Body Mass Index (BMI) documented 3008F Current [...] - Continue as before Ordered: A1c POC 04255 Body Mass Index (BMI) documented 3008F Current [...] - BMI education added Ordered: A1c POC 20897 Body Mass Index (BMI) documented 3008F Current [...] Diet and exercise advised Ordered: A1c POC 81714 Body Mass Index (BMI) documented 3008F Current [...] continue to not smoke Ordered: A1c POC 58001 Body Mass Index (BMI) documented 3008F Current [...] lunch, # 360 cap(s), Refills(s) 0, Pharmacy: [facility], 165, cm, 03/27/24 10:13:00 EDT, Height/Length Dosing, 107.9, kg, 03/27/24 10:13:00 EDT, Weight Dosing semaglutide, 0.25 mg, SubCutaneous, qWeek, # 3 mL, Refills(s) 0, Pharmacy: [facility], 165, cm, 03/27/24 10:13:00 EDT, Height/Length Dosing, 107.9, kg, 03/27/24 10:13:00 EDT, Weight Dosing Follow-up No qualifying data available Patient Education BMI for Adults Problem List/Past Medical History Ongoing Advanced care planning/counseling discussion Anticoagulated Aortic atherosclerosis Back pain BMI 39.0-39.9,adult Chronic diarrhea Diverticular disease Family hx of aortic aneurysm Feeling of incomplete bladder emptying Frequency of (more content not included)... Normal [facility] Comment on above: Result Comment: Elec tronically [...] replacement. Pressure setting 11 Fax to [facility] [phone] Do you have any of the following [...] EA, Oral, BID, 210 gram, Refill(s) 0, [facility], 165, cm, 01/03/24 10:13:00 EDT, Height/Length Dosing, 108.1, kg, 01/03/24 10:13:00 EDT, Weight Dosing 2. Type 2 diabetes mellitus with morbid obesity (E11.69: Type 2 diabetes mellitus with other specified complication) - Will recheck A1c today. Ordered: cholestyramine, 5 gram, 1 EA, Oral, BID, 210 gram, Refill(s) 0, [facility], 165, cm, 01/03/24 10:13:00 EDT, Height/Length Dosing, 108.1, kg, 01/03/24 10:13:00 EDT, Weight Dosing 3. BMI 39.0-39.9,adult (Z68.39: Body mass index [BMI] 39.0-39.9, adult) - BMI education uploaded Ordered: cholestyramine, 5 gram, 1 EA, Oral, BID, 210 gram, Refill(s) 0, [facility], 165, cm, 01/03/24 10:13:00 EDT, Height/Length Dosing, 108.1, kg, 01/03/24 10:13:00 EDT, Weight Dosing 4. Class 1 obesity due to excess calories in adult (E66.09: Other obesity due to excess calories) - Diet and exercise advised Ordered: cholestyramine, 5 gram, 1 EA, Oral, BID, 210 gram, Refill(s) 0, [facility], 165, cm, 01/03/24 10:13:00 EDT, Height/Length Dosing, 108.1, kg, 01/03/24 10:13:00 EDT, Weight Dosing 5. Nonsmoker (Z78.9: Other specified health status) - Please continue to not smoke Ordered: cholestyramine, 5 gram, 1 EA, Oral, BID, 210 gram, Refill(s) 0, [facility], 165, cm, 01/03/24 10:13:00 EDT, Height/Length Dosing, 108.1, kg, 01/03/24 10:13:00 EDT, Weight Dosing 6. ELY (obstructive sleep apnea) (G47.33: Obstructive sleep apnea (adult) (pediatric)) - Will redo the CPAP Ordered: cholestyramine, 5 gram, 1 EA, Oral, BID, 210 gram, Refill(s) 0, [facility], 165, cm, 01/03/24 10:13:00 EDT, Height/Length Dosing, 108.1, kg, 01/03/24 10:13:00 EDT, Weight Dosing 7. Chronic diarrhea (K52.9: Noninfective gastroenteritis and colitis, unspecified) - Will try Cholestyramine given hx of gallbladder. - Maybe 2/2 partial colectomy. Ordered: cholestyramine, 5 gram, 1 EA, Oral, BID, 210 gram, Refill(s) 0, [facility], 165, cm, 01/03/24 10:13:00 EDT, Height/Length Dosing, 108.1, kg, 01/03/24 10:13:00 EDT, Weight Dosing 8. Family hx of aortic aneurysm (Z82.49: Family history of ischemic heart disease and other diseases of the circulatory system) U/S ordered. Ordered: US Aorta Orders: gabapentin, 300 mg = 1 cap(s), Oral, BID, # 180 cap(s), Refills(s) 0, Pharmacy: [facility], 165, cm, 01/03/24 10:13:00 EDT, Height/Length [...] Historical Abdomi (more content not included)... Normal [facility] Comment on above: Result Comment: Elec tronically Signed By: Deven Bronson MD\.br\Date and Time Signed: 03/02/24 10:56 EDT RAD - Ultrasound Reporton RAD - Ultrasound Report [id number]#1.0 0TIFF [facility] Ambulatory Visit Summaryon 0 01-03-2024 Ambulatory [...] EDT With: Audie BIGGS, Deven Alfredo Where: [facility] Normal [address] [place], [place] [id number]- \.br\ You Need to Complete the Following\.br\ US Aorta, 01/03/24, Routine, Order for future visit, Transport Mode: Ambulatory, Reason: Other (please specify), No, Family hx of aortic aneurysm, Family Hx. Recommended by brothers Supervisor Throwing Department., pp_set_radiology_s ubspecialty, Not Required, [facility]\.br\ Medications\.br\ What How Much When Why Instructions\.br\ New cholestyramine (cholestyramine 4 g/ 5 g Oral Pwdr) 1 Each By Mouth 2 times a day HTN (hypertension) Type 2 diabetes mellitus with morbid obesity BMI 39.0-39.9,adult Class 1 obesity due to excess calories in adult Nonsmoker ELY (obstructive sleep apnea) Chronic diarrhea Pickup at [facility]\.br\ Unchanged gabapentin (gabapentin 300 mg Cap) 1 Capsules By Mouth 2 times a day Pickup at [facility]\.br\ Unchanged ascorbic acid (ascorbic acid 1000 [...] if questions or concerns \.br\ Pharmacy Information\.br\ [facility]: [address] [id number] [phone]\.br\ Allergies\.br\ Dilaudid (Foggy mind)\.br\ Biaxin\.br\ CeleBREX\.br\ Nubain [...] for choosing us for your care.\.br\ \.br\ [facility] Retail - Clinical Noteon Retail - Clinical Note [id number]#1.[address] [facility] Consultation Noteon 11-02-19 Consultation Note [id number]#1.[address] [facility] Lab Reportson 10-07-2023 Lab Reports [id number]#1.[address] [facility] Family Medicine Office/Clini c Noteon 10-06-2023 Family Medicine Office/Clinic Note HPI Staff Daksha is a 72 year old female presenting to [facility] Establish Care: History: htn, DM, Gout, ELY [...] with voice recognition artificial intelligence software, specifically [employer], [employer] and or [employer]. Substitutions may have occurred due to the inherent limitations of voice recognition and artificial intelligence software. ATTESTATION: Documentation services were performed after patient or guardian consented to allow [employer] to record this visit. RADHA energy management specialist and provider reviewed before signing. RADHA: Zak Mtz. (more content not included)... Normal [facility] Comment on above: Result Comment: Elec tronically Signed By: Deven Bronson MD\.br\Date and Time Signed: 10/06/23 10:02 EST\.br\Electronically Co-Signed By: Zak Mtz\.br\Date and Time Co-Signed: 10/04/23 13:09 EST Pre-Visit Planningon 024 Pre-Visit Planning - From: Amanda Winslow To: Deven Bronson MD; Sent: 10/03/2023 13:34:14 EST Subject: Pre-Visit Planning Due Date/Time: 10/03/2023 13:34:00 EST Caller Name: DAKSHA CORLEY; Caller Number: , Oh Dr. Bronson. During a pre-visit planning chart review, I noted the following documentation in the medical record: [employer] Facesheet: LETICIA. I do not find any clinical indicators to support either of these diagnoses located in [facility]. However, based on listed Providers medical records may be located at Dr. King's office or [facility]. If you have any questions, please feel free to contact me at extension [phone]. Thank you! Amanda Winslow LPN From: Deven Bronson MD To: [facility] - Clinical; Sent: 10/03/2023 15:36:08 EST Subject: FW: Pre-Visit Planning Caller Name: DAKSHA CORLEY; Caller Number: H , M Can we look in the old system for this? From: Shannon León LPN ([facility] - Clinical) To: Deven Bronson MD; Sent: [...] M Here is what they found. Normal [address] [place] [address] Ambulatory Visit Summaryon 0 10-04-2023 Ambulatory Visit [...] AM EDT With: Deven Bronson MD Where: [facility] [place] Normal [facility] Patient Educationon 10-04-19 Patient Education Nutrition BMI [...] numbers. This can be done either in Mexican (U.S[place] or metric measurements. Note that charts and online BMI calculators are available to help you find your BMI quickly and easily without having to do these calculations yourself. To calculate your BMI in Mexican (U.S.) measurements: 1. Measure your weight in [...] for Disease Control and Prevention: www.cdc.gov ? [place] Heart Association: www.heart.org ? National Heart, Lung, and Blood [place]: www.nhlbi.nih.gov Summary ? Body mass index (BMI) is a number that is calculated from a person's weight and height. ? BMI may help estimate how much of a person's weight is composed of fat. BMI can help identify those who may be at higher risk for certain medical problems. ? BMI can be measured using Mexican measurements or metric measurements. ? BMI charts are used to identify whether you are underweight, normal weight, overweight, or obese. This information is not intended to replace advice given to you by your health care provider. Make sure you discuss any questions you have with your health care provider. Document Revised: 06/04/2020 Document Reviewed: 04/11/2020 [employer] Patient Education ? 2022 [employer]. [facility] Lab Reportson 10-03-2023 Lab Reports [id number]#1.0 0TIFF [facility] Pre-Visit Planningon 024 Pre-Visit Planning - From: Amanda Winslow To: Audie BIGGS, Deven Alfredo; Sent: 10/03/2023 13:26:43 EST Subject: Pre-Visit Planning Due Date/Time: 10/03/2023 13:26:00 EST Caller Name: DAKSHA CORLEY; Caller Number: H , M Oh Dr. Bronson. During a pre-visit planning chart [...] feel free to contact me at extension [phone]. Thank you! Amanda Winslow LPN From: Deven Bronson MD To: Amanda Winslow; Sent: 10/03/2023 15:35:14 EST Subject: RE: Pre-Visit Planning Caller Name: DAKSHA CORLEY; Caller Number: Wayne , M -Aortic atherosclerosis Normal [address] [place] [address] Pre-Visit Planningon 023 Pre-Visit Planning - From: Sonia RODRIGUEZ, Jodi To: Deven Bronson MD; Sent: 07/29/2023 10:55:23 EDT Subject: Pre-Visit Planning Due Date/Time: 07/29/2023 10:55:00 EDT Caller Name: DAKSHA CORLEY; Caller Number: H , M Oh Dr. Bronson, *Based on your response below, [...] feel free to contact me at extension [phone]. Thank you! CHELY Reddy, RN, CCM, CCDS, CCDS-O From: Audie BIGGS, Deven Alfredo To: Sonia RODRIGUEZ, Jodi; Sent: 08/01/2023 11:51:17 EST Subject: RE: Pre-Visit Planning Caller Name: DAKSHA CORLEY; Caller Number: Wayne , Nat Its type 2. Thank you Normal [address] [facility] XR FOOT LT MIN 3 [...] TARAS WILEY Date: 2022-11-21 01:25 Normal [facility] MARQUEZ by IFAon 09-09-2022 Antinuclear Antibodies, IFA Negative Normal [facility] Comment on above: Result Comment: Nega tive <1:80 Borderline 1:80 Positive >1:80 ICAP nomenclature: AC-0 For more information about Hep-2 cell patterns use ANApatterns.org, the official website for the International Consensus on Antinuclear Antibody (MARQUEZ) Patterns (ICAP). Performed By: #### A NAIFA ####[facility] [address] [place] [address]DrPastora Cortes ANTISTREPTOLYSIN O AB (ASO)o n 09-08-2022 Antistreptolysin O Ab 104.5 IU/mL Normal 0.0-200.0 [facility] Comment on above: Performed By: #### A SOAB #### [facility] [address] [place] [address] [address] Marcella Cortes RHEUMATOID FACTORon 09-08-20 RA Latex Turbid. <10.0 Normal <14.0 [facility] Comment on above: Performed By: #### R F #### [facility] [address] [place] [address] Dr. Marcella Cortes CBC AUTO DIFFon 09-07-2022 BASO # 0.0 103/ul Normal 0.0-0.1 [facility] Comment on above: Performed By: #### C BC ####[facility] [address] [place] [address]Dr. Marcella Cortes Basophils/100 WBC (Bld) 0.5 % Normal 0.2-2.0 [facility] Comment on above: Performed By: #### C BC ####[facility] [address] [place] [address]DrPastora Cortes EO # 0.1 103/ul Normal 0.0-0.7 [facility] Comment on above: Performed By: #### C BC ####[facility] [address] [place] [address]DrPastora Cortes Eosinophils/100 WBC (Bld) 1.4 % Normal 0.9-7.0 [facility] Comment on above: Performed By: #### C BC ####[facility] [address] [place] [address]DrPastora Cortes Erythrocyte distribution width (RBC) [Ratio] 12.6 % Normal 11.0-15.0 [facility] Comment on above: Performed By: #### C BC ####[facility] [address] [place] [address]Dr. Marcella Cortes Hematocrit (Bld) [Volume fraction] 37.1 % Normal 36.0-48.0 [facility] Comment on above: Performed By: #### C BC ####[facility] [address] [place] [address]Dr. Marcella Sebastian Hemoglobin (Bld) [Mass/Vol] 12.4 g/dL Normal 12.0-16.0 [facility] Comment on above: Performed By: #### C BC ####[facility] [address] [place] [address]Dr. Marcella Cortes IG # 0.03 10e3/ul Normal 0.00-0.03 [facility] Comment on above: Performed By: #### C BC ####[facility] [address] [place], [place] [address]Dr. Marcella Cortes IG % 0.5 % Normal 0.0-0.5 [facility] Comment on above: Performed By: #### C BC ####[facility] [address] [place], [place] [address]Dr. Marcella Cortes LYMPH # 2.4 103/ul Normal 1.2-3.8 [facility] Comment on above: Performed By: #### C BC ####[facility] [address] [place], [place] [address]Dr. Marcella Cortes Lymphocytes/100 WBC (Bld) 36.2 % Normal 20.5-60.0 [facility] Comment on above: Performed By: #### C BC ####[facility] [address] [place], [place] [address]Dr. Britneyjeffrey Cortes MANUAL DIFF REQ NO Normal [facility] Comment on above: Performed By: #### C BC ####[facility] [address] [place], [place] [address]Dr. Britneyjeffrey Cortes MCH (RBC) [Entitic mass] 30.3 pg Normal 26.7-34.0 [facility] Comment on above: Performed By: #### C BC ####[facility] [address] [place], [place] [address]Dr. Marcella Cortes MCHC (RBC) [Mass/Vol] 33.4 g/dL Normal 29.9-35.2 [facility] Comment on above: Performed By: #### C BC ####[facility] [address] [place] [id number]. Marcella Cortes MCV (RBC) [Entitic vol] 90.7 fL Normal 81.0-99.0 [facility] Comment on above: Performed By: #### C BC ####[facility] [address] [place] [id number]. Marcella Sebastian MONO # 0.4 103/ul Normal 0.3-0.8 [facility] Comment on above: Performed By: #### C BC ####[facility] [address] [place] [address]Dr. Britneyjeffrey Cortes Monocytes/100 WBC (Bld) 5.9 % Normal 1.7-12.0 [facility] Comment on above: Performed By: #### C BC ####[facility] [address] [place], [place] [address]Dr. Marcella Cortes NEUT # 3.7 103/ul Normal 1.4-6.5 [facility] Comment on above: Performed By: #### C BC ####[facility] [address] [place] [id number]. Marcella Sebastian Neutrophils/100 WBC (Bld) 55.5 % Normal 43.0-75.0 [facility] Comment on above: Performed By: #### C BC ####[facility] [address] [place] [address]Dr. Marcella Sebastian Platelet mean volume (Bld) [Entitic vol] 8.7 fL Critically low 9.5-13.5 [facility] Comment on above: Performed By: #### C BC ####[facility] [address] [place] [id number]. Marcella Sebastian PLT 224 103/ul Normal 150-450 [facility] Comment on above: Performed By: #### C BC ####[facility] [address] [place] [address]Dr. Marcella Cortes RBC 4.09 106/ul Critically low 4.20-5.40 [facility] Comment on above: Performed By: #### C BC ####[facility] [address] [place] [id number]. Marcella Cortes WBC 6.7 103/ul Normal 4.0-11.0 [facility] Comment on above: Performed By: #### C BC ####[facility] [address] [place] [address]Dr. Marcella Cortes CRPon 09-07-2022 CRP 0.7 mg/dL Normal <=1.0 [facility] Comment on above: Performed By: #### C RP, URIC, LIPID, CMP #### [facility] [address] [place] [address] [address] Marcella Cortes GLYCOHEMOGLOBIN A1Con 2021 ADA RECOMMENDATION SEE BELOW Normal [facility] Comment on above: Result Comment: ADA RECOMMENDED LIMIT 4.0 - 6.0 ADA THERAPEUTIC TARGET < 7.0 ACTION SUGGESTED > 7.0 Performed By: #### A 1C ####[facility] [address] [place] [address]Dr. Marcella Sebastian Glucose [Mass/Vol] 186 mg/dL Normal [facility] Comment on above: Performed By: #### A 1C ####[facility] [address] [place] [address]Dr. Britneyjeffrey Cortes HbA1c (Bld) [Mass fraction] 8.1 % Critically high 4.5-6.2 [facility] Comment on above: Performed By: #### A 1C ####[facility] [address] [place] [address]DrPastora Cortes LIPID PROFILEon 09-07-2022 CHOL-HDL RATIO NORM SEE BELOW Normal [facility] Comment on above: Result Comment: 3.3 - 4.4 LOW RISK 4.4 - 7.1 AVERAGE RISK 7.1 - 11.0 MODERATE RISK >11.0 HIGH RISK Performed By: #### C RP, URIC, LIPID, CMP #### [facility] [address] [place] [address] [address] Marcella Cortes Cholesterol [Mass/Vol] 187 mg/dL Normal <=200 [facility] Comment on above: Performed By: #### C RP, URIC, LIPID, CMP #### [facility] [address] [place] [address] Dr. Marcella Cortes Cholesterol in HDL [Mass/Vol] 44 mg/dL Normal 40-60 [facility] Comment on above: Performed By: #### C RP, URIC, LIPID, CMP #### [facility] [address] [place] [address] Dr. Marcelal Cortes Cholesterol in LDL [Mass/Vol] 97.0 mg/dL Normal [facility] Comment on above: Performed By: #### C RP, URIC, LIPID, CMP #### [facility] [address] [place] [address] Dr. Marcella Cortes Cholesterol.total/C holesterol in HDL [Mass ratio] 4.3 {ratio} Normal [facility] Comment on above: Performed By: #### C RP, URIC, LIPID, CMP #### [facility] [address] [place] [address] Dr. Marcella Cortes HDL NORMAL > or = 60 mg/dl - LO W CARDIOVASCULAR RISK <40 mg/dl - HIGH CARDIOVASCULAR RISK Normal [facility] Comment on above: Performed By: #### C RP, URIC, LIPID, CMP #### [facility] [address] [place] [address] Dr. Marcella Cortes LDL CALC NORMAL SEE BELOW Normal [facility] Comment on above: Result Comment: <100 mg/dl OPTIMAL 100 - 129 mg/dl NEAR OR ABOVE OPTIMAL 130 - 159 mg/dl BORDERLINE HIGH 160 - 189 mg/dl HIGH >190 mg/dl VERY HIGH Performed By: #### C RP, URIC, LIPID, CMP #### [facility] [address] [place] [address] Dr. Marcella Cortes Triglyceride [Mass/Vol] 230 mg/dL Critically high <=150 [facility] Comment on above: Performed By: #### C RP, URIC, LIPID, CMP #### [facility] [facility] [address] [place] [address] Dr. Marcella Cortes VLDL CALC 46.0 mg/dL Normal [facility] Comment on above: Performed By: #### C RP, URIC, LIPID, CMP #### [facility] [address] [address] [address] Marcella Cortes PROF 14(COMP METB)on 022 Albumin [Mass/Vol] 3.8 g/dL Normal 3.4-5.0 [facility] Comment on above: Performed By: #### C RP, URIC, LIPID, CMP #### [facility] [address] [place] [address] Dr. Marcella Cortes Albumin/Globulin [Mass ratio] 0.9 {ratio} Normal [facility] Comment on above: Performed By: #### C RP, URIC, LIPID, CMP #### [facility] [address] [place] [address] Dr. Marcella Cortes ALP [Catalytic activity/Vol] 46 U/L Normal 46-116 [facility] Comment on above: Performed By: #### C RP, URIC, LIPID, CMP #### [facility] [address] [place] [address] Dr. Marclela Cortes ALT [Catalytic activity/Vol] 29 U/L Normal 14-59 [facility] Comment on above: Performed By: #### C RP, URIC, LIPID, CMP #### [facility] [address] [place] [address] Dr. Marcella Cortes Anion gap [Moles/Vol] 16.2 mmol/L Normal [facility] Comment on above: Performed By: #### C RP, URIC, LIPID, CMP #### [facility] [address] [place] [address] Dr. Marcella Cortes AST [Catalytic activity/Vol] 20 U/L Normal 15-37 [facility] Comment on above: Performed By: #### C RP, URIC, LIPID, CMP #### [facility] [address] [place] [address] Dr. Marcella Cortes Bilirubin [Mass/Vol] 0.4 mg/dL Normal 0.2-1.0 [facility] Comment on above: Performed By: #### C RP, URIC, LIPID, CMP #### [facility] [address] [place] [address] Dr. Marcella Cortes Calcium [Mass/Vol] 9.2 mg/dL Normal 8.5-10.1 [facility] Comment on above: Performed By: #### C RP, URIC, LIPID, CMP #### [facility] [address] [place] [address] Dr. Marcella Cortes Chloride [Moles/Vol] 98 mmol/L Normal 98-107 [facility] Comment on above: Performed By: #### C RP, URIC, LIPID, CMP #### [facility] [address] [place] [address] Dr. Marcella Cortes CO2 [Moles/Vol] 26.1 mmol/L Normal 21.0-32.0 [facility] Comment on above: Performed By: #### C RP, URIC, LIPID, CMP #### [facility] [address] [place] [address] Dr. Marcella Cortes Creatinine [Mass/Vol] 0.84 mg/dL Normal 0.55-1.02 [facility] Comment on above: Performed By: #### C RP, URIC, LIPID, CMP #### [facility] [address] [place] [address] Dr. Marcella Cortes EGFR-AF GUINEAN >60 Normal >=60 [facility] Comment on above: Performed By: #### C RP, URIC, LIPID, CMP #### [facility] [address] [place] [address] Dr. Marcella Cortes EGFR-NON AF GUINEAN >60 Normal >=60 [facility] Comment on above: Performed By: #### C RP, URIC, LIPID, CMP #### [facility] [address] [place] [address] Dr. Marcella Cortes Globulin (S) [Mass/Vol] 4.0 g/dL Normal [facility] Comment on above: Performed By: #### C RP, URIC, LIPID, CMP #### [facility] [address] [place] [address] Dr. Marcella Cortes Glucose [Mass/Vol] 163 mg/dL Critically high 74-106 [facility] Comment on above: Performed By: #### C RP, URIC, LIPID, CMP #### [facility] [address] [place] [address] Dr. Marcella Cortes Potassium [Moles/Vol] 4.3 mmol/L Normal 3.5-5.1 [facility] Comment on above: Performed By: #### C RP, URIC, LIPID, CMP #### [facility] [address] [place] [address] Dr. Marcella Cortes Protein [Mass/Vol] 7.8 g/dL Normal 6.4-8.2 [facility] Comment on above: Performed By: #### C RP, URIC, LIPID, CMP #### [facility] [address] [place] [address] Dr. Marcella Cortes Sodium [Moles/Vol] 136 mmol/L Normal 136-145 [facility] Comment on above: Performed By: #### C RP, URIC, LIPID, CMP #### [facility] [address] [place] [address] Dr. Marcella Cortes Urea nitrogen [Mass/Vol] 15.0 mg/dL Normal 7.0-18.0 [facility] Comment on above: Performed By: #### C RP, URIC, LIPID, CMP #### [facility] [address] [place] [address] Dr. Marcella Cortes Urea nitrogen/Creatinine [Mass ratio] 17.9 mg/mg Normal [facility] Comment on above: Performed By: #### C RP, URIC, LIPID, CMP #### [facility] [address] [place] [address] Dr. Marcella Cortes URIC ACID SERUMon 09-07-2022 Urate [Mass/Vol] 7.4 mg/dL Critically high 2.6-6.0 [facility] Comment on above: Performed By: #### C RP, URIC, LIPID, CMP #### [facility] [address] [place] [address] CARDIAC SCORINGon 022 [...] unspecified complications . COMPARISON: None. ACCESSION NUMBER(S): [id number] ORDERING CLINICIAN: TERRI KING TECHNIQUE: Using prospective [...] al. JACC 2015 (http://dx.doi.org/10. 1016/j.j [email or web address]) Reading Supervisor Throwing Department: Dr. Jewel Vincent, Date: 03/18/2022 10:08 am Electronically signed by: MACO LUNA MD Normal [facility] US BREAST LEFT LIMITEDon US BREAST LEFT LIMITED Patient: DAKSHA CORLEY Exam Date: 01/13/2022 : 1950 Gender:F Ordering : DR TERRI KING . Admission #: [id number] Family : Order #: [id number] CLICK HERE TO VIEW EXAM RADIOLOGY REPORT [...] LUMP SHOULD BE BIOPSIED. Dictated by: Manny oFrde M.D. on 01/13/2022 at 10:49 Approved by: Manny Forde M.D. on 01/13/2022 at 10:54 Normal [facility] MG MAMM SCREEN 3D CAMERON CADon 01-08-2022 MG MAMM SCREEN 3D CAMERON CAD Patient: DAKSHA CORLEY Exam Date: 01/08/2022 : 1950 Gender:F Ordering : DR TERRI KING . Admission #: [id number] Family : Order #: [id number] CLICK HERE TO VIEW EXAM RADIOLOGY REPORT [...] Treatments None Family Cancers None LOCATION: [facility] BREAST COMPOSITION: Heterogeneously dense,which may obscure [...] Forde M.D. on 01/08/2022 at 15:21 Normal [facility] XR DEXA BONE DENSITYon 01-08 XR [...] by: MANNY FORDE Date: 2022-01-08 11:07 Normal [facility] Vital Signs Date Time Vital Sign Value Performing Clinician Ton bowen 09-05-2023 10:00-0500 Body height 167.64 cm Jade Lillian Other [employer] Other 09-05-2023 10:00-0500 Body mass index (BMI) [Ratio] 37.12 kg/m2 Jade Lillian Other [employer] Other 09-05-2023 10:00-0500 Body weight 104.33 kg Jade Lillian Other [employer] Other 05-23-2023 11:15-0400 Body height 167.64 cm Jade Lillian Other [employer] Other 05-23-2023 11:15-0400 Body mass index (BMI) [Ratio] 37.12 kg/m2 Jade Lillian Other [employer] Other 05-23-2023 11:15-0400 Body weight 104.33 kg Jade Lillian Other [employer] Other 03-30-2023 11:15-0400 Body height 167.64 cm Jade Lillian Other [employer] Other 03-30-2023 11:15-0400 Body mass index (BMI) [Ratio] 37.12 kg/m2 Jade Lillian Other [employer] Other 03-30-2023 11:15-0400 Body weight 104.33 kg Jade Lillian Other [employer] Other 02-16-2023 11:15-0400 Body height 167.64 cm Jade Lillian Other [employer] Other 12-08-2022 12:00-0400 Body height 167.64 cm Jade Childs Other [employer] Other 12-08-2022 12:00-0400 Body mass index (BMI) [Ratio] 37.12 kg/m2 Jade Lillian Other [employer] Other 12-08-2022 12:00-0400 Body weight 104.33 kg Jade Lillian Other [employer] Other 11-24-2022 11:30-0500 Body height 167.64 cm Jade Lillian Other [employer] Other 11-24-2022 11:30-0500 Body mass index (BMI) [Ratio] 37.93 kg/m2 Jade Lillian Other [employer] Other 11-24-2022 11:30-0500 Body weight 106.6 kg Jade Lillian Other [employer] Other Encounters Encounter Date Encounter Type Care Provider Facility Start: 06-27-2025 ambulatory MD Deven Bronson [facility]il [facility]y:[facility] Start: 10-02-2024 ambulatory MD Deven Bronson [facility]y:[facility] Start: 09-28-2024 ambulatory MD Deven Bronson [facility]il [facility]y:[facility] Start: 06-26-2024 End: 06-26-2024 ambulatory MD Deven Bronson Facility:[facility] Start: 03-27-2024 End: 03-27-2024 ambulatory MD Deven Bronson Facility: [facility] Start: 01-03-2024 End: 01-03-2024 ambulatory MD Deven Bronson Facility: [facility] Start: 10-04-2023 End: 10-04-2023 ambulatory MD Deven Bronson [facility] Start: 09-05-2023 End: 09-05-2023 ambulatory Jade Childs Other [employer] Other Start: 09-05-2023 Office outpatient vi sit 15 minutes Jade Childs [facility] Start: 08-02-2023 End: 08-02-2023 ambulatory MD Deven Bronson Facility:[facility] Start: 05-23-2023 End: 05-23-2023 ambulatory Jade Childs Other [employer] Other Start: 05-23-2023 Office outpatient vi sit 15 minutes Jade Childs [facility] Start: 03-30-2023 End: 03-30-2023 ambulatory Jade Childs Other [employer] Other Start: 03-30-2023 Office outpatient vi sit 15 minutes Jade Childs [facility] Start: 02-16-2023 End: 02-16-2023 ambulatory Jade Childs Other [employer] Other Start: 02-16-2023 Office outpatient vi sit 15 minutes Jade Childs [facility] Start: 01-19-2023 End: 01-19-2023 ambulatory Ana Maria Glasgow Other [employer] Other Start: 01-19-2023 Office outpatient vi sit 15 minutes Ana Maria Glasgow [facility] Start: 12-29-[address] TERRI KING . Facil ity:[facility] Start: 12-22-2022 End: 12-22-2022 ambulatory Jade Childs Other [employer] Other Start: 12-22-2022 Office outpatient vi sit 15 minutes Jade Childs [facility] Start: 03-29-2023 Telephone encounter Jade Childs [facility] Start: 12-08-2022 End: 12-08-2022 ambulatory Jade Lillian Other [employer] Other Start: 12-08-2022 Postop follow up vis it related to original px Jade Childs [facility] Start: 11-24-2022 End: 11-24-2022 ambulatory Jade Childs Other [employer] Other Start: 11-24-2022 Office outpatient ne w 30 minutes Jade Childs [facility] Start: 11-21-2022 End: 11-21-[address] TERRI KING . Facility: Start: 09-07-2022 End: 09-08-[address] TERRI KING . Facility: Start: 01-13-2022 End: 01-14-[address] TERRI KING . Facility:[facility] Start: 01-08-2022 End: 01-09-[address] TERRI KING . Facility: Payers Date Payer Category Payer Medicare [id number] 2.1 [id number] 1959 Unknown [id number] 2.1 [id number] 1950 Unknown [id number] 2.16.84 0.1.202625.3.579.2.593 1950 Unknown [id number] 2.16.84 0.1.503676.3.579.2.593 1950 Unknown [id number] 2.16.84 0.1.953105.3.579.2.593 1950 Unknown [id number] 2.16.84 0.1.268958.3.579.2.593 1950 Unknown [id number] 2.16.84 0.1.230303.3.579.2.593 1950 Unknown [id number] 2.16.8 40.1.886350.3.579.2.727 1950 Unknown [id number] 2.16.8 40.1.825207.3.579.2.727 1950 Unknown [id number] 2.16.8 40.1.933106.3.579.2.727 1950 Unknown [id number] 2.16.8 40.1.475066.3.579.2.727 1950 Unknown [id number] 2.16.8 40.1.564183.3.579.2.727 1950 Unknown [id number] 2.16.8 40.1.078727.3.579.2.727 1950 Unknown [id number] 2.16.8 40.1.072657.3.579.2.727 1950 Unknown [id number] 2.16.8 40.1.530433.3.579.2.727 1950 Unknown [id number] 2.16.8 40.1.859502.3.579.2.727 Social History Date Type Detail Facility Unknown if ever smoked [employer] Other Sex Assigned At Sex Assigned At Bir th [employer] Other Clinical Notes 02-24-2019 to 06-26-2024 Note [...] for Disease Control and Prevention: cdc.gov ? [place] Heart Association: heart.org ? National Heart, Lung, and Blood [place]: nhlbi.nih.gov This information is not intended to replace advice given to you by your health care provider. Make sure you discuss any questions you have with your health care provider. Document Revised: 06/02/2023 Document Reviewed: 05/26/2023 [employer] Patient Education ? [address] [facility] 03-27-2024 Note Patient Education Nutrition BMI for [...] numbers. This can be done either in [place] ([place] or metric measurements. Note that charts and online BMI calculators are available to help you find your BMI quickly and easily without having to do these calculations yourself. To calculate your BMI in [place] ([place] measurements: 1. Measure your weight in [...] for Disease Control and Prevention: www.cdc.gov ? [place] Heart Association: www.heart.org ? National Heart, Lung, and Blood [place]: www.nhlbi.nih.gov Summary ? Body mass index (BMI) is a number that is calculated from a person's weight and height. ? BMI may help estimate how much of a person's weight is composed of fat. BMI can help identify those who may be at higher risk for certain medical problems. ? BMI can be measured using Mexican measurements or metric measurements. ? BMI charts are used to identify whether you are underweight, normal weight, overweight, or obese. This information is not intended to replace advice given to you by your health care provider. Make sure you discuss any questions you have with your health care provider. Document Revised: 06/04/2020 Document Reviewed: 04/11/2020 [employer] Patient Education ? [address] [facility] 09-05-2023 Evaluation note Encounter Date Diagnosis Assessment [...] for refills if the medication is helping. [employer] Other 08-28-2023 Evaluation note* Encounter Date Diagnosis [...] - M76.61) Apr, Neuropathy (ICD-10 - G62.9) [employer] Other 07-05-2023 Evaluation note* Encounter Date Diagnosis [...] - M76.61) Mar, Neuropathy (ICD-10 - G62.9) [employer] Other 05-24-2023 Evaluation note* Encounter Date Diagnosis [...] as documented in the electronic medical record. [employer] Other 04-26-2023 Evaluation note* Encounter Date Diagnosis [...] in the office today and providing supervision. [employer] Other 03-29-2023 Evaluation note* Encounter Date Diagnosis [...] exercise. 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 Continue with use of boot at this time. Continue with use of walker as needed. A prescription for physical therapy was provided today. [employer] Other 03-15-2023 Evaluation note* Encounter Date Diagnosis [...] understanding and is agreeable to treatment plan. [employer] Other 03-01-2023 Evaluation note* Encounter Date Diagnosis [...] in office today. Prior medical notes from [facility] and history have been reviewed. At her [...] as documented in the electronic medical record. [employer] Other 06-01-2019 History general Narrative - Reported* [...] Surgical History LT Hospitalization History Pneumonia 09/2017 [employer] Other Evaluation noteNo InformationNort [employer] Other Summary Purpose Family History No Family History Records FoundNo Family History Records FoundNo Family History Records Found Advance Directives No Advanced Directives Records FoundNo Advanced Directives Records FoundNo Advanced Directives Records Found Additional Source Comments INFORMATION SOURCE (unrecogn ized section and content) DATE CREATED AUTHOR 03/20/2022 [facility] DATE CREATED AUTHOR AUTHOR'S ORGANIZ ATION 12/31/2022 [facility] DATE CREATED AUTHOR AUTHOR'S ORGANIZ ATION 07/03/2024 [place] [facility] REASON FOR VISIT (unrecogniz ed section and [...] BE BASED ON THE PRIMARY CLINICAL RECORDS. [facility] [employer] [facility]. provides no warranty or guarantee of the accuracy or completeness of information in this document.
== END 2024-09-12 13:05 | disposition home or self-care (01) ==
LOC: RAD 13:04
PROVIDERS: PCP Family Medicine; Visit Provider Podiatrist Foot & Ankle Surgery
DX: S92.325D Nondisplaced fracture of second metatarsal bone, left foot, subsequent encounter for fracture with routine healing (principal)
CPT/HCPCS: 73630

== ENCOUNTER 2024-10-03 10:23 | Outpatient (OUT) | payer OTHER, MEDICARE, SELFPAY ==
--- NOTE | 2024-10-03 10:25 | XR_ITS ---
[address] [address] Patient Name: YESY DELGADO MRN: [id number] date: 1950 Sex: F Assigned Patient Location: [facility] Current Patient Location: [facility] Accession/Order Number: [id number] Exam Date: 10/03/2024 10:35 Report Date: 10/03/2024 12:48 At the request of: GRETCHEN VELASQUEZ Procedure: XR foot LT min 3V PROCEDURE: XR foot LT min 3V COMPARISON: 09/12/2024 HISTORY: left foot pain FINDINGS: BONES:No acute fracture or dislocation. Moderate degenerative changes with joint space narrowing marginal osteophyte formation. Moderate enthesopathic spurring of the calcaneus. SOFT TISSUES:Negative. No visible soft tissue swelling. EFFUSION:None visible. OTHER: Negative. XR/XR foot LT min 3V IMPRESSION: Moderate osteoarthritis Electronically authenticated by: CARLOS YBARRA Date: 10/03/2024 12:48
== END 2024-10-03 10:24 | disposition home or self-care (01) ==
LOC: RAD 10:23
PROVIDERS: PCP Family Medicine; Visit Provider Podiatrist Foot & Ankle Surgery
DX: M79.672 Pain in left foot (principal); M19.072 Primary osteoarthritis, left ankle and foot
CPT/HCPCS: 73630

== ENCOUNTER 2024-10-05 09:49 | Outpatient (RCR) | payer OTHER, MEDICARE, SELFPAY | END 2024-12-26 09:21 | disposition home or self-care (01) | LOC: PT 09:49 | PROVIDERS: PCP Family Medicine; Visit Provider Podiatrist Foot & Ankle Surgery | DX: S92.335D Nondisplaced fracture of third metatarsal bone, left foot, subsequent encounter for fracture with routine healing (principal); R26.2 Difficulty in walking, not elsewhere classified | CPT/HCPCS: 97110; 97112; 97140; 97163 ==

== ENCOUNTER 2024-11-21 09:56 | Outpatient (OUT) | payer MEDICARE, SELFPAY ==
--- NOTE | 2024-11-21 09:58 | XR_ITS ---
The [address] [address] Patient Name: YESY DELGADO MRN: [id number] date: 1950 Sex: F Assigned Patient Location: [facility] Current Patient Location: [facility] Accession/Order Number: [id number] Exam Date: 11/21/2024 11:38 Report Date: 11/21/2024 11:43 At the request of: GRETCHEN VELASQUEZ DPNat Procedure: XR foot LT min 3V LEFT FOOT - 3 views COMPARISON: 10/03/2024 CLINICAL DATA: Chronic pain across the dorsum of the foot and limping. History of proximal metatarsal fractures Weightbearing AP, lateral and oblique views were obtained. No acute fractures or dislocation are seen. There are degenerative changes involving some of the interphalangeal joints as well as at the joints of the first toe. Posterior and plantar calcaneal spurs are again seen. There is minor spurring at the dorsum of the tarsals. No focal soft tissue swelling is noted. There are no significant soft tissue abnormalities. XR/XR foot LT min 3V IMPRESSION: DEGENERATIVE CHANGES. NO ACUTE BONY FINDINGS. Impression dictated by: Adriana Small M.D.11/21/2024 11:43 AM Dictation Location: [place] [address] Electronically authenticated by: [id number] Y Date: 11/21/2024 11:43
--- OUTSIDE RECORDS SUMMARY | 2024-11-21 10:01 | XMS_ITS | CCD ---
Author Organization [facility] Care Team Providers Care Production Weigher Name Role Phone Atif Childs Unavailable ROJO ., DR TERRI Lawson Admitting Unavailable ROJO ., DR TERRI Lawson Attending Unavailable ROJO ., DR TERRI Lawson Consulting Unavailable ROJO ., DR TERRI Lawson Primary Care Unavailable ROJO ., DR TERRI Lawson Primary Care Unavailable ATIF CHILDS Attending Unavailable ATIF CHILDS Admitting Unavailable ROJO ., DR TERRI Lawson Primary Care Unavailable HAY ., DR GORMAN Admitting Unavailable HAY ., DR GORMAN Attending Unavailable HAY ., DR GORMAN Consulting Unavailable STRAWSER, TARAS Consulting Unavailable ROJO ., DR TERRI Lawson Admitting Unavailable ROJO ., DR TERRI Lawson Attending Unavailable RJOO ., DR TERRI Lawson Consulting Unavailable ROJO ., DR TERRI Lawson Primary Care Unavailable LUBNA, DR PLACIDO Mckeon Consulting Unavailable ROJO ., DR TERRI Lawson Admitting Unavailable ROJO ., DR TERRI Lawson Attending Unavailable ROJO ., DR TERRI Lawson Consulting Unavailable ROJO ., DR TERRI Lawson Primary Care Unavailable ZICODEY, DR PLACIDO Mckeon Consulting Unavailable Ana Maria Glasgow Unavailable Rimma Kelly. Primary Care Physician [phone] Rimma Kelly Attending Unavailable Rimma Kelly Attending Unavailable Rimma Klely Attending Unavailable Rimma Kelly Attending Unavailable Rimma Kelly Attending Unavailable Rimma Kelly Admitting Unavailable Rimma Kelly Attending Unavailable Rimma Kelly Attending Unavailable Rimma Kelly Attending Unavailable Rimma Kelly Attending Unavailable Rimma Kelly Admitting Unavailable CARLOS RIVERS Attending Unavailable NO, PHYSICIAN Primary Care Unavailable Rimma Kelly MD Primary Care Provider [phone] NANCY CORRALES Attending Unavailable TERRI ROJO Referring Unavailable RIMMA KELLY Primary Care Unavailable RAJAN, NANCY L Referring Unavailable RIMMA KELLY Primary Care Unavailable Allergies Allergy Classification Reported Allergen(s) Allergy Type Date of Onset Reaction(s) Facility (12 sources) Nalbuphine; Translations: [Nubain] Drug Allergy Clouded consciousness (finding) [facility] (9 sources) Sulfonamides (Antibiotic) Propensity to adverse reactions Unknown thePlatform Other (1 source) bee venom Drug allergy (disorder) [facility] Rep[facility] (2 sources) HYDROmorphone; Translations: [Dilaudid] Drug Allergy 07-16-20 [facility] Rep[facility] (1 source) Sulfonamides (Antibiotic) Drug allergy (disorder) [facility] (2 sources) celecoxib; Translations: [celecoxib] Drug Allergy [facility] (2 sources) Clarithromycin; Translations: [clarithromycin] Drug Allergy [facility] (6 sources) HYDROmorphone; Translations: [hydromorphone] Drug Allergy 12-09-19 Clouded consciousness (finding), Dizziness [facility] (7 sources) Nalbuphine; Translations: [nalbuphine] Drug Allergy 07-16-20 Unknown (qualifier value) [facility] (2 sources) rofecoxib; Translations: [rofecoxib] Drug Allergy [facility] (2 sources) sulfabenzamide / Sulfacetamide / sulfathiazole; Translations: [triple sulfa topical] Drug Allergy Unknown (qualifier value) [facility] (5 sources) Sulfonamides (Antibiotic); Translations: [SULFA (SULFONAMIDE ANTIBIOTICS)] Propensity to adverse reactions to drug (disorder) 07-16-20 [facility] Medications Current Medications Medication Drug Class(es) Dates Sig (Normalized) Sig (Original) 0.25 MG, 0.5 MG Dose 3 ML semaglutide 0.68 MG/ML Pen Injector [Ozempic] (1 source) Start: 03-27-2024 Ozempic 2 mg/3 mL (0.25 mg or 0.5 mg dose) subcutaneous solution 0.25 mg, SubCutaneous, qWeek, # 3 mL, Refills(s) 0, Pharmacy: [id number], 165, cm, 03/27/24 10:13:00 EDT, Height/Length Dosing, 107.9, kg, 03/27/24 10:13:00 EDT, Weight Dosing Start Date: 03/27/24 Status: Ordered allopurinol 100 mg oral tablet (9 sources) Xanthine Oxidase Inhibitor take 1 tablet by mouth every twenty-four hours Allopurinol 100 MG 1 tablet Orally Once a day Active ascorbic acid 1000 mg oral tablet (4 sources) Vitamin C Start: 02-02-2023 take 1 tablet by mouth once daily ascorbic acid 1000 mg oral tablet 1,000 mg = 1 tab(s), Oral, Daily, # 90 tab(s), Refills(s) 3, Pharmacy: [id number], 167.6, cm, 02/02/23 13:51:00 EDT, Height/Length Dosing, 111.4, kg, 02/02/23 13:51:00 EDT, Weight Dosing Start Date: 02/02/23 Status: Ordered ascorbic acid (V ITAMIN C ORAL) Take by mouth. Active B12 Fast Dissolve 5000 MCG (8 sources) B12 Fast Dissolv e 5000 MCG as directed Orally Active Blood pressure cuff-wrist (1 source) Start: 2022 Blood pressure cuff-wrist Blood pressure cuff-wrist, See Instructions, 1 EA, 0, As Directed-Check blood pressure 1-2 hours after taking BP medication., [id number], Supply Start Date: 12/22/22 Status: Ordered celecoxib 100 mg oral capsule (3 sources) Nonsteroidal Anti-inflammatory Drug Start: 2022 take 1 capsule by mouth every twelve hours CeleBREX 100 MG 1 capsule with food Orally bid for 30 days Mar, Active CPAP (1 source) Start: 2023 CPAP CPAP, See Instructions, 1 EA, 0, c-pap machine w/ humidifier and rx must state motor life exceeded repair or replacement. Pressure setting 11, Supply Start Date: 01/04/24 Status: Ordered cyanocobalamin, vitamin B-12, (VITAMIN B12 ORAL) (3 sources) cyanocobalamin, vitamin B-12, (VITAMIN B12 ORAL) Take by mouth. Active cyclobenzaprine hydrochloride 5 mg oral tablet (9 sources) Muscle Relaxant Start: 2022 take 0.5-1 tablets by mouth every eight hours Cyclobenzaprine HCl 5 MG 1/2 to 1 tab Orally Every 8 hours for 14 days Nov, Active diclofenac sodium 0.01 mg/mg topical gel (4 sources) Nonsteroidal Anti-inflammatory Drug Start: 2022 Diclofenac Sodium 1 % apply 1-2 grams to affected area Externally Four times a day for 30 days January, Active doxylamine succinate 25 mg oral tablet (3 sources) take 1 tablet by mouth once daily as needed for sleep doxylamine (SLEEP AID, DOXYLAMINE,) 25 mg tablet Take 1 tablet (25 mg total) by mouth nightly as needed for sleep. Active equate sleep aid (1 source) Start: 2019 take 1 tablet by mouth once daily equate sleep aid equate sleep aid, 1 tab, Oral, Daily Insomnia Start Date: 03/05/20 Status: Ordered glipiZIDE 5 mg oral tablet (1 source) Sulfonylurea Start: 2023 take 1 tablet by mouth twice daily glipiZIDE 5 mg Tab 5 mg = 1 tab(s), Oral, BID, # 180 tab(s), Refills(s) 3, Pharmacy: [id number], 165, cm, 10/04/23 11:01:00 EST, Height/Length Dosing, 107, kg, 10/04/23 11:01:00 EST, Weight Dosing Start Date: 10/04/23 Status: Ordered hydroCHLOROthiazide 12.5 mg / lisinopril 20 mg oral tablet (13 sources) Thiazide Diuretic, Angiotensin Converting Enzyme Inhibitor Start: 2023 hydrochlorothiazide-l isinopril 12.5 mg-20 mg Tab 1 tab(s), Oral, BID, 180 tab(s), Refill(s) 3, [id number], 165, cm, 10/04/23 11:01:00 EST, Height/Length Dosing, 107, kg, 10/04/23 11:01:00 EST, Weight Dosing Start Date: 10/04/23 Status: Ordered take 1 tablet by braydon th once in the morning lisinopril-hydroCHLOROthiazide (PRINZIDE ,ZESTORETIC) 20-12.5 mg per tablet Take 1 tablet by mouth in the morning. Active take 1 tablet by braydon th every twenty-four hours Lisinopril-hydroCHLOROthiazide 20-25 MG 1 tablet Orally Once a day for 30 day(s) Active meloxicam 15 mg oral tablet (20 sources) Nonsteroidal Anti-inflammatory Drug Start: 01-04-2019 take 1 tablet by mouth in the morning meloxicam (MOBIC) 15 mg tablet Take 1 tablet (15 mg total) by mouth in the morning. 10/11/2020 Active 24 hr metFORMIN hydrochloride 500 mg extended release oral tablet (13 sources) Biguanide Start: 07-24-2024 take 2 tablets by mouth twice daily Glucophage XR 500 mg Tab-ER 1,000 mg = 2 tab(s), Oral, BID, # 360 tab(s), Refills(s) 1, Pharmacy: [id number], 165, cm, 06/26/24 15:02:00 EDT, Height/Length Dosing, 103.7, kg, 06/26/24 15:02:00 EDT, Weight Dosing Start Date: 07/24/24 Status: Ordered take 1 tablet by braydon th in the morning, then take 1 tablet by mouth at bedtime metFORMIN (GLUCOPHAGE) 500 mg tablet Avery e 1 tablet (500 mg total) by mouth in the morning and 1 tablet (500 mg total) before bedtime. Active Multi For Her - (9 sources) Multi For Her - as directed Orally Active multivit with calcium,iron,min (MULTIPLE VITAMIN, WOMENS ORAL) (3 sources) multivit with calcium,iron,min (MULTIPLE VITAMIN, WOMENS ORAL) Take by mouth. Active 24 hr oxybutynin chloride 5 mg extended release oral tablet (13 sources) Cholinergic Muscarinic Antagonist Start: 09-21-2024 take 1 tablet by mouth once daily oxybutynin 5 mg ER Tab See Instructions, TAKE 1 TABLET BY MOUTH DAILY, # 90 tab(s), Refills(s) 3, Pharmacy: [id number], 165, cm, 06/26/24 15:02:00 EDT, Height/Length Dosing, 103.7, kg, 06/26/24 15:02:00 EDT, Weight Dosing Start Date: 09/21/24 Status: Ordered take 1 tablet by braydon th every twenty-four hours in the morning oxybutynin XL (DITROPAN-XL) 5 mg 24 hr tablet Take 1 tablet (5 mg total) by mouth in the morning. Active take 1 tablet by braydon th every twenty-four hours oxyBUTYnin Chloride 5 MG 1 tablet Orally qd for 30 day(s) Active pantoprazole 40 mg delayed release oral tablet (13 sources) Proton Pump Inhibitor Start: 11-24-2020 take 1 tablet by mouth in the morning, then take 1 tablet by mouth at bedtime pantoprazole (PROTONIX) 40 mg EC tablet Take 1 tablet (40 mg total) by mouth in the morning and 1 tablet (40 mg total) before bedtime. 11/24/2020 Active take 1 tablet by braydon th every twenty-four hours Pantoprazole Sodium 40 MG 1 tablet Orall y Once a day Active Probiotic Digestive Aid Gummies (1 source) Start: 01-03-2024 Probiotic Dige stive Aid Gummies See Instructions, Refill(s) 0, take 2 orally daily Start Date: 01/03/24 Status: Ordered Psyllium (10 sources) Start: 01-03-2024 Metamucil See Instructions, Take 3 gummies orally daily, Refills(s) 0 Start Date: 01/03/24 Status: Ordered take 2 capsules by m outh every eight hours Metamucil 0.52 GM 2 capsules with 8 ounc es of liquid Orally Three times a day for 30 day(s) Not-Taking/PRN Metamucil 0.52 G M 2 capsules with 8 ounces of liquid Orally Three times a day for 30 day(s) Not-Taking vitamin b12 0.1 mg oral tablet (2 sources) Vitamin B12 Start: 02-02-2023 take 1 tablet by mouth once daily cyanocobalamin 100 mcg oral tablet 100 mcg = 1 tab(s), Oral, Daily, # 90 tab(s), Refills(s) 3, Pharmacy: [id number], 167.6, cm, 02/02/23 13:51:00 EDT, Height/Length Dosing, 111.4, kg, 02/02/23 13:51:00 EDT, Weight Dosing Start Date: 02/02/23 Status: Ordered B12 Fast Dissolv e 5000 MCG as directed Orally Active Completed/Discontinued Medications Medication Drug Class(es) Dates Sig (Normalized) Sig (Original) acetaminophen 325 mg / oxyCODONE hydrochloride 5 mg oral tablet (12 sources) Opioid Agonist Start: 12-28-2018 take 1-2 tablets by mouth every four to six hours as needed Percocet 5-325 MG 1-2 tablet as needed Orally every 4-6 hrs for 7 days Dec, Not-Taking/PRN take 1 tablet by braydon th every four hours as needed for pain oxyCODONE-acetaminophen (PERCOCET) 5-325 mg per tablet Take 1 tablet by mouth every 4 (four) hours as needed for pain. Active Aspir-81 81 MG (9 sources) take 1 tablet by braydon th once daily as needed Aspir-81 81 MG [...] every 12 hrs for 10 day(s) Not-Taking gabapentin 300 mg oral capsule (2 sources) Anti-epileptic Agent Start: 07-24-2024 take 1 capsule by mouth twice daily after lunch gabapentin 300 mg Cap 600 mg = 2 cap(s), Oral, BID, 2 at night 1 in the am and one after lunch, # 360 cap(s), Refills(s) 0, Pharmacy: [id number], 165, cm, 06/26/24 15:02:00 EDT, Height/Length Dosing, 103.7, kg, 06/26/24 15:02:00 EDT, Weight Dosing Start Date: 07/24/24 Status: Ordered Start: 09-05-2023 take 1 capsule by mo [facility] every eight hours Gabapentin 100 MG 1 capsule Orally three times a day for 30 days Aug, Active Problems Active Problems Problem Classification Problem Date Documented Date Episodic/Chronic Abdominal pain (4 sources) Abdominal tenderness; Translations: [Flank pain] Onset: 09-20-20 24 02-02-2023 Episodic Calculus of urinary tract (1 source) Kidney stone 03-05-2020 Episodic Cataract (2 sources) Nuclear sclerotic cataract; Translations: [Age-related nuclear cataract, bilateral] Onset: 10-25-19 25 10-25-2024 Chronic Diabetes mellitus with complications (2 sources) Type 2 diabetes mellitus with unspecified complications; Translations: [Type 2 diabetes mellitus in obese] Onset: 09-11-20 22 10-03-2023 Chronic Diabetes mellitus without complication (3 sources) Type 2 diabetes mellitus without complications; Translations: [Type 2 diabetes mellitus without complication] Onset: 11-22-19 23 10-25-2024 Chronic Disorders of lipid metabolism (1 source) Pure hypercholesterolemia, unspecified; Translations: [PURE HYPERCHOLESTEROLEMIA UNSPEC] Onset: 09-11-20 Chronic Diverticulosis and diverticulitis (1 source) Diverticular disease 07-19-2023 Chronic E Codes: Natural/environment (1 source) Other and unspecified overexertion or strenuous movements or postures, initial encounter; Translations: [OTH AND UNS OVREXRT/STRN MVMT/POS INT] Onset: 11-22-19 Episodic Essential hypertension (3 sources) Essential (primary) hypertension; Translations: [Hypertensive disorder] Onset: 11-22-19 23 03-12-2020 Chronic Genitourinary symptoms and ill-defined conditions (2 sources) Post-micturition incontinence ; Translations: [Urge incontinence of urine] 07-13-2019 Chronic Genitourinary symptoms and ill-defined conditions (5 sources) Herman hematuria; Translations: [Incomplete emptying of bladder] 03-12-2020 Episodic Gout and other crystal arthropathies (1 source) Gout 07-19-2023 Chronic Hepatitis (1 source) Nonalcoholic steatohepatitis 07-19-2023 Chronic Menopausal disorders (1 source) Unspecified menopausal and perimenopausal disorder; Translations: [UNS MENOPAUSAL PERIMENOPAUSAL D/O] Onset: 01-14-20 Chronic Noninfectious gastroenteritis (1 source) Chronic diarrhea 01-03-2024 Episodic Osteoarthritis (9 sources) Osteoarthritis of hip; Translations: [Unilateral primary osteoarthritis, left hip] Chronic Other aftercare (1 source) skilled nursing (current) use of oral hypoglycemic drugs; Translations: [HALF-WAY USE ORAL HYPOGLYCEMIC DX] Onset: 11-22-19 Episodic Other aftercare (1 source) Other assisted (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; Translations: [OTH GROUP MANAGING DIRECTOR CURRENT DRUG THERAPY] Onset: 11-22-19 Episodic Other circulatory disease (2 sources) Elevated blood-pressure reading, without diagnosis of hypertension; Translations: [Elevated blood-pressure reading, without diagnosis of hypertension] Onset: 09-20-20 Episodic Other connective tissue disease (9 sources) [...] sources) Achilles tendinitis, right leg Episodic Other diseases of bladder and urethra (1 source) Urethral stricture 07-13-2019 Episodic Other gastrointestinal disorders (1 source) Irritable [...] disorders (3 sources) Polyneuropathy, unspecified Chronic Other nervous system disorders (1 source) Peripheral nerve disease 10-04-2023 Chronic Other non-traumatic joint disorders (4 sources) Pain in left ankle and joints of left foot; Translations: [PAIN IN LEFT ANKLE] Onset: 11-21-19 Episodic Other nutritional; endocrine; and metabolic disorders (1 source) Metabolic syndrome; Translations: [METABOLIC SYNDROME] Onset: 11-22-19 Chronic Other nutritional; endocrine; and metabolic disorders (1 source) Body mass index 30+ - obesity 06-26-2024 Chronic Other nutritional; endocrine; and metabolic disorders (1 source) Morbid obesity 06-26-2024 Chronic Peripheral and visceral atherosclerosis (1 source) Atherosclerosis of aorta 10-03-2023 Chronic Comment on above: added per 10/03/2023 query response. Residual codes; unclassified (1 source) Obstructive sleep apnea (adult) (pediatric); Translations: [OBSTRUCTIVE SLEEP APNEA] Onset: 11-22-19 Chronic Residual codes; unclassified (1 source) Obstructive sleep apnea syndrome 07-19-2023 Chronic Residual codes; unclassified (1 source) Acquired absence of other specified parts of digestive tract; Translations: [ACQ ABSENCE OTH PART DIGESTV TRACT] Onset: 11-22-19 Episodic Residual codes; unclassified (1 source) FH: Aortic aneurysm 01-03-2024 Episodic Retinal detachments; defects; vascular occlusion; and retinopathy (5 sources) Epiretinal membrane of right eye; Translations: [Puckering of macula, right eye] Onset: 10-25-19 25 10-25-2024 Chronic Rheumatoid arthritis and related disease (4 sources) Inflammatory polyarthropathy; Translations: [INFLAMMATORY POLYARTHROPATHY] Onset: 09-07-20 Chronic Spondylosis; intervertebral disc disorders; other back problems (1 source) Backache 06-18-2020 Episodic Sprains and strains (12 sources) Strain of right Achilles tendon, initial encounter; Translations: [Strain of left Achilles tendon, subsequent encounter] Onset: 12-30-19 Episodic Unclassified (1 source) Drug therapy finding 06-18-2020 Unclassified (1 source) Finding of sensation of bladder 07-13-2019 Unclassified (1 source) Patient encounter status 07-29-2023 Unclassified (1 source) Diabetic Eye Exam Onset: 10-25-19 Past or Other Problems Problem Classification Problem [...] Name Value Interpretation Reference Range Facil ity No Panel Informationon 10-26 [facility] Family Medicine Office/Clini c Noteon 10-02-2024 Family Medicine Office/Clinic Note Family Medicine Office/Clinic Note Chief Complaint 3m follow up Concerns about diabetes management and medication coverage HPI Staff Daksha is a 73 year old female presenting for 3 month follow up Patient is here for follow up on Diabetes. How often are you checking your blood sugars? occasionally What are your average readings? _145ish Paresthesias, Ulcerations or sores? no Lisinopril, aspirin, statin therapy? Yes Foot Exam: last visit Eye Exam: 2023 Last A1c: Hgb A1C %: 5.8 % (09/28/24 09:37:00) Hgb A1c POC: 7.6 % (06/26/24 14:46:00) Patient is here for follow up on hypertension. How often are you checking your blood pressure? no What are your average readings? _ Do you have any of the following symptoms? Chest Pain? no Palpitations? no RAMOS/SOB? no Headache? no Peripheral Edema? no Light Headed? no NEG Mammo 07/05/24 NEG Cologard 07/10/24 Questions/Concerns: Needs refills on all meds. History of Present Illness The patient is a 73-year-old female presenting with concerns about diabetes management and medication coverage. She has a documented history of Type 2 diabetes mellitus with peripheral neuropathy. The patient reports recent efforts to manage her condition, including the use of Ozempic and medications from [facility]. She has successfully reduced her A1c to 5.8, indicating an improvement over the last three months. She is currently on a dose of 1.8, which has been effective for her weight loss. Additionally, she experiences challenges regarding medication affordability, particularly due to insurance coverage issues with glipizide and other diabetes treatments. Review of Systems PHQ Score Initial Depression Screen Score: 0 SCORE - General: Denies issues outside of diabetes management. - Endocrine: Reports concerns about medication affordability affecting diabetes treatment. - Musculoskeletal: Reports having undergone hip replacement and sustaining hip trauma. - Dermatology: Reports the use of orthopedic boot following fractures in the foot. Physical Exam Vitals & Measurements T: 36.5 ???C(Tympanic) HR: 96(Peripheral) RR: 18 BP: 126/74 SpO2: 98% HT: 65 in HT: 165 cm WT: 97 kg WT: 213.848 lb BMI: 35.63 General: alert, no acute distress ENMT: oral mucosa moist Cardiovascular: Regular rate and rhythm, normal peripheral perfusion Respiratory: Lungs clear to auscultation, respirations non labored Extremities: no deformity, trauma to the left side, three broken bones in the top of the left foot Neurological: oriented x 4, level of consciousness appropriate for age, CN II-XII intact, motor strength equal & normal bilaterally, speech normal Abdomen: Soft, Non-tender, Non-distended, + Bowel sounds Assessment/Plan 1. Type 2 diabetes mellitus with peripheral neuropathy (E11.42: Type 2 diabetes mellitus with diabetic polyneuropathy) The patient is currently managing her diabetes with Ozempic at a dose of 1.8, which has shown positive results in lowering her A1c to 5.8. Discontinuation of glipizide has been decided due to improved glycemic control and cost considerations. The patient will continue monitoring her blood glucose levels regularly. Attempts will be made to reassess insurance coverage options and potential formulary updates to reduce patient costs in the new [place] year. Continual evaluation of diabetes management, including potential adjustments and alternative therapeutic options, are ongoing. 2. Aortic atherosclerosis (I70.0: Atherosclerosis of aorta) The ongoing management of her aortic atherosclerosis continues with monitoring of associated cardiovascular risk factors. Given her history, careful assessment of her medications is crucial to safeguard cardiovascular health amid her diabetes management. 3. Morbid obesity due to excess calories (E66.01: Morbid (severe) obesity due to excess calories) The patient's current treatment with Ozempic has contributed to effective weight management, as observed in the recent weight loss. The suitability of continuing or adjusting this medication will be monitored based on insurance coverage improvements. Diet and lifestyle modifications are sustained as part of her long-term management plan. 4. BMI 35.0-35.9,adult (Z68.35: Body mass index [BMI] 35.0-35.9, adult) Her BMI is closely monitored alongside her diabetes therapy to ensure that her weight indices improve as planned. Her current regimen with Ozempic supports this aim, although financial constraints remain an active part of the treatment discussion. 5. Obesity (BMI 30-39.9) (E66.9: Obesity, unspecified) Diet and exercise advised 6. Nonsmoker (Z78.9: Other specified health status) Please continue to not smoke. Orders: gabapentin, 600 mg = 2 cap(s), Oral, BID, 2 at night 1 in the am and one after lunch, # 360 cap(s), Refills(s) 0, Pharmacy: [id number], 165, cm, 10/02/24 11:39:00 EST, Height/Length Dosing, 97, kg, 10/02/24 11:39:00 EST, Weight Dosing hydrochlorot (more content not included)... Normal [facility] Comment on above: Result Comment: Elec tronically Signed By: Audie BIGGS, Rimma Moyer.br\Date and Time Signed: 10/02/24 12:22 EST CHEMISTRYOrdered By: SYSTEM SYSTEM on 09-28-2024 Albumin [Mass/Vol] 4.3 g/dL Normal 3.3 - 5.0 gm/dL R emisol Chem Albumin DL <= 20 mg/L (U) [Mass/Vol] 8.8 mg/dL High 0.0 - 1.9 mg/dL Remisol Chem Albumin/Creatinine DL <= 20 mg/L (U) [Mass ratio] 50.9 mg/gm Cr High 0.0 - 30.0 mg/gm Cr [facility] Chem Comment on above: Interpretive Data: 3 0-300 mg/g Cr indicates an increased risk for diabetic nephropathy. >300 mg/g Cr is consistent with clinical nephropathy. Albumin/Globulin [Mass ratio] 1.4 {ratio} Normal 1.1 - 2.2 Remisol Chem ALP [Catalytic activity/Vol] 35 [iU]/d Normal 21 - 98 Int._Unit/L [facility] Chem ALT No additional P-5'-P [Catalytic activity/Vol] 16 [iU]/d Normal 6 - 46 Int._Unit/L Rem[facility] Chem Anion gap [Moles/Vol] 14 mmol/L Normal 6 - 16 mEq/L [facility] Chem AST [Catalytic activity/Vol] 18 [iU]/d Normal 5 - 43 Int._Unit/L [facility] Bilirubin [Mass/Vol] 0.6 mg/dL Normal 0.0 - 1.1 mg/dL [facility] Chem Calcium [Mass/Vol] 9.0 mg/dL Normal 8.9 - 11.1 mg/dL [facility] Chloride [Moles/Vol] 100 mmol/L Low 101 - 111 mmol/L [facility] Chem Cholesterol [Mass/Vol] 183 mg/dL Normal 120 - 200 mg/dL Rem[facility] Chem Cholesterol in HDL [Mass/Vol] 44 mg/dL Invalid Interpretation Code Remisol Chem Comment on above: Result Comment: '>= 60 LOW RISK' '<= 40 HIGH RISK' Cholesterol in LDL [Mass/Vol] 96 mg/dL Normal <=129mg/dL Remisol Chem Cholesterol in VLDL [Mass/Vol] 62 mg/dL High 7 - 40 mg/dL [facility] Chem CO2 [Moles/Vol] 26 mmol/L Normal 21 - 31 mmol/L Remis ol Chem Creatinine [Mass/Vol] 1.0 mg/dL Normal 0.5 - 1.3 mg/dL Rem[facility] Chem eGFR 59 mL/min/1.73 m2 Normal >=59mL/min /1.73 m2 [facility] Chem Globulin (S) [Mass/Vol] 3.1 g/dL Normal 1.4 - 4.0 gm/dL Rem[facility] Chem Glucose [Mass/Vol] 110 mg/dL Normal 55 - 199 mg/dL Re misol Chem Potassium [Moles/Vol] 4.2 mmol/L Normal 3.5 - 5.3 mmol/L Remisol Chem Protein [Mass/Vol] 7.4 g/dL Normal 6.0 - 7.8 gm/dL R emisol Chem Sodium [Moles/Vol] 136 mmol/L Normal 135 - 145 mmol/L Remisol Chem Triglyceride [Mass/Vol] 309 mg/dL High <=149mg/dL Remisol Chem U Creatinine 172.8 mg/dL Invalid Interpretation Code Remisol Chem Urea nitrogen [Mass/Vol] 16 mg/dL Normal 5 - 21 mg/dL Remisol Chem Urea nitrogen/Creatinine [Mass ratio] 16 mg/mg Normal 10 - 20 Remisol Chem CHEMISTRYOrdered By: Gabrielle Chao on 09-28-2024 HbA1c (Bld) [Mass fraction] 5.8 % Normal <=5.9% [facility] ChemAutoSS CMPon 09-28-2024 Albumin [Mass/Vol] 4.3 g/dL Normal 3.3-5.0 [facility] Comment on above: Performed By: #### 2 [id number] #### [facility] [address] [place] [address] Albumin/Globulin (S) [Mass conc ratio] 1.4 Normal 1.1-2.2 [facility] Comment on above: Performed By: #### 2 [id number] #### [facility] [address] [place] [address] ALP [Catalytic activity/Vol] 35 Int._Unit/L Normal 21-98 [facility] Comment on above: Performed By: #### 2 [id number] #### [facility] [address] [place] [address] ALT No additional P-5'-P [Catalytic activity/Vol] 16 Int._Unit/L Normal 6-46 [facility] Comment on above: Performed By: #### 2 [id number] #### [facility] [address] [place] [address] Anion gap [Moles/Vol] 14 mmol/L Normal 6-16 [facility] Comment on above: Performed By: #### 2 [id number] #### [facility] [address] [place] [address] AST [Catalytic activity/Vol] 18 Int._Unit/L Normal 5-43 [facility] Comment on above: Performed By: #### 2 [id number] #### [facility] [address] [place] [address] Bilirubin [Mass/Vol] 0.6 mg/dL Normal 0.0-1.1 [facility] Comment on above: Performed By: #### 2 [id number] #### [facility] [address] [place] [address] Calcium [Mass/Vol] 9.0 mg/dL Normal 8.9-11.1 [facility] Comment on above: Performed By: #### 2 [id number] #### [facility] [address] [place] [address] Chloride [Moles/Vol] 100 mmol/L Low 101-111 [facility] Comment on above: Performed By: #### 2 [id number] #### [facility] [address] [place] [address] CO2 [Moles/Vol] 26 mmol/L Normal 21-31 [facility] Comment on above: Performed By: #### 2 [id number] #### [facility] [address] [place] [address] Creatinine [Mass/Vol] 1.0 mg/dL Normal 0.5-1.3 [facility] Comment on above: Performed By: #### 2 [id number] #### [facility] [address] [place] [address] Globulin (S) [Mass/Vol] 3.1 g/dL Normal 1.4-4.0 [facility] Comment on above: Performed By: #### 2 [id number] #### [facility] [address] [place] [address] Glucose [Mass/Vol] 110 mg/dL Normal 55-199 [facility] Comment on above: Performed By: #### 2 [id number] #### [facility] [address] [place] [address] Potassium [Moles/Vol] 4.2 mmol/L Normal 3.5-5.3 [facility] Comment on above: Performed By: #### 2 [id number] #### [facility] [address] [place] [address] Protein [Mass/Vol] 7.4 g/dL Normal 6.0-7.8 [facility] Comment on above: Performed By: #### 2 [id number] #### [facility] [address] [place] [address] Sodium [Moles/Vol] 136 mmol/L Normal 135-145 [facility] Comment on above: Performed By: #### 2 [id number] #### [facility] [address] [place] [address] Urea nitrogen [Mass/Vol] 16 mg/dL Normal 5-21 [facility] Comment on above: Performed By: #### 2 [id number] #### [facility] [address] [place] [address] Urea nitrogen/Creatinine [Mass ratio] 16 No Units Normal 10-20 [facility] Comment on above: Performed By: #### 2 [id number] #### [facility] [address] [place] [address] AcnL9tya 09-28-2024 HbA1c (Bld) [Mass fraction] 5.8 % Normal <=5.9 [facility] Comment on above: Performed By: #### 7 [id number] #### [facility] [address] [place] [address] Lipid Panelon 09-28-2024 Cholesterol [Mass/Vol] 183 mg/dL Normal 120-200 [facility] Comment on above: Performed By: #### 2 [id number] #### [facility] [address] [place] [address] Cholesterol in HDL [Mass/Vol] 44 mg/dL Invalid Interpretation Code [facility] Comment on above: Result Comment: '>= 60 LOW RISK' '<= 40 HIGH RISK' Performed By: #### 2 [id number] #### [facility] [address] [place] [address] Cholesterol in LDL [Mass/Vol] 96 mg/dL Normal <=129 [facility] Comment on above: Performed By: #### 2 [id number] #### [facility] [address] [place] [address] Cholesterol in VLDL [Mass/Vol] 62 mg/dL High 7-40 [facility] Comment on above: Performed By: #### 2 [id number] #### [facility] [address] [place] [address] Triglyceride [Mass/Vol] 309 mg/dL High <=149 [facility] Comment on above: Performed By: #### 2 [id number] #### [facility] [address] [place] [address] U MA/Cr Ratioon 09-28-2024 Albumin DL <= 20 mg/L (U) [Mass/Vol] 8.8 mg/dL High 0.0-1.9 [facility] Comment on above: Performed By: #### 1 [id number] #### [facility] [address] [place] [address] Albumin/Creatinine DL <= 20 mg/L (U) [Mass ratio] 50.9 mg/gm Cr High .0-30.0 [facility] Comment on above: Result Comment: 30-3 00 mg/g Cr indicates an increased risk for diabetic nephropathy. >300 mg/g Cr is consistent with clinical nephropathy. Performed By: #### 1 [id number] #### [facility] [address] [place] [address] U Creatinine 172.8 mg/dL Invalid Interpretation Code [facility] Comment on above: Performed By: #### 1 [id number] #### [facility] [address] [place] [address] eGFRon 09-28-2024 eGFR 59 mL/min/1.73 m2 Normal >=59 [facility] Comment on above: Performed By: #### 1 [id number] #### [facility] [address] [place] [address] BASIC METABOLIC PANELon 08-27 Calcium [Mass/Vol] 9.8 mg/dL Normal 8.4-10.2 [facility] Comment on above: Order Comment: [facility] has implemented the eGFR calculation approach that does not have a coefficient for race that conforms to the NKF-ASN Task Force Recommendations. Performed By: #### 4 [id number] #### [facility] [address], [place] [address] Aslhee Hull M.D. [id number] CBC WITH AUTO DIFFERENTIALon 09-20-2024 AUTO NRBC 0.0 % Normal [facility] Comment on above: Performed By: #### L [id number] #### [facility] [address] [place] [address] Rebecca MorganDPastora [id number] AUTO NRBC ABS COUNT 0.00 K/mcL Normal 0.00-0.00 [facility] Comment on above: Performed By: #### L [id number] #### [facility] [address] [address] Ashlee Hull M.D. [id number] BASOPHILS ABSOLUTE COUNT 0.03 K/mcL Normal 0.00-0.30 [facility] Comment on above: Performed By: #### L [id number] #### [facility] [address] [address] Ashlee Hull M.D. [id number] Basophils/100 WBC (Bld) 0.4 % Normal [facility] Comment on above: Performed By: #### L [id number] #### [facility] [address] [place] [address] Ashlee Hull M.D. [id number] Eosinophils (Bld) [#/Vol] 0.06 10*3/uL Normal 0.00-0.50 [facility] Comment on above: Performed By: #### L [id number] #### [facility] [address] [place] [address] Ashlee Hull M.D. [id number] Eosinophils/100 WBC (Bld) 0.8 % Normal [facility] Comment on above: Performed By: #### L [id number] #### [facility] [address] [address] Ashlee Hull M.D. [id number] Erythrocyte distribution width (RBC) [Ratio] 12.5 % Normal 11.6-14.8 [facility] Comment on above: Performed By: #### L [id number] #### [facility] [address] [address] Ashlee Hull M.D. [id number] Hematocrit (Bld) [Volume fraction] 38.3 % Normal 36.0-46.0 [facility] Comment on above: Performed By: #### L [id number] #### [facility] [address] [address] Ashlee Hull M.D. [id number] Hemoglobin (Bld) [Mass/Vol] 12.9 g/dL Normal 12.0-16.0 [facility] Comment on above: Performed By: #### L [id number] #### [facility] [address] [address] Ashlee Hull M.D. [id number] IG ABSOLUTE 0.02 K/mcL Normal 0.00-0.30 [facility] Comment on above: Performed By: #### L [id number] #### [facility] [address] [place] [address] Ashlee Hull M.D. [id number] IG PERCENT 0.30 % Normal [facility] Comment on above: Result Comment: The IG parameter is the percentage of metamyelocytes, myelocytes and promyelocytes. An immature granulocyte count (IG) of 1% or more suggests the possibility of infection, an IG count of 3% is very likely related to an infection. Performed By: #### L [id number] #### [facility] [address] [place] [address] Ashlee Hull M.D. [id number] Lymphocytes (Bld) [#/Vol] 2.89 10*3/uL Normal 0.90-4.00 [facility] Comment on above: Performed By: #### L [id number] #### [facility] [address] [place] [address] Ashlee Hull M.D. [id number] Lymphocytes/100 WBC (Bld) 39.3 % Normal [facility] Comment on above: Performed By: #### L [id number] #### [facility] [address] [place] [address] Ashlee Hull M.D. [id number] MCH (RBC) [Entitic mass] 30.9 pg Normal 26.0-34.0 [facility] Comment on above: Performed By: #### L [id number] #### [facility] [address] [address] Ashlee Hull M.D. [id number] MCV (RBC) [Entitic vol] 91.6 fL Normal 80.0-100.0 [facility] Comment on above: Performed By: #### L [id number] #### [facility] [address] [address] Ashlee Hull M.D. [id number] MEAN CORPUSCULAR HEMOGLOBIN CONC 33.7 g/dL Normal 31.0-37.0 [facility] Comment on above: Performed By: #### L [id number] #### [facility] [address] [place] [address] Ashlee Hull M.D. [id number] Monocytes (Bld) [#/Vol] 0.43 10*3/uL Normal 0.30-0.90 [facility] Comment on above: Performed By: #### L [id number] #### [facility] [address] [address] Ashlee Hull M.D. [id number] Monocytes/100 WBC (Bld) 5.8 % Normal [facility] Comment on above: Performed By: #### L [id number] #### [facility] [address] [address] Ashlee Hull M.D. [id number] NEUTROPHILS ABSOLUTE COUNT 3.93 K/mcL Normal 1.70-7.00 [facility] Comment on above: Performed By: #### L [id number] #### [facility] [address] [address] Ashlee Hull M.D. [id number] Neutrophils/100 WBC (Bld) 53.4 % Normal [facility] Comment on above: Performed By: #### L [id number] #### [facility] [address], [place] [address] Ashlee Hull M.D. [id number] Platelet mean volume (Bld) [Entitic vol] 8.7 fL Low 9.4-12.4 [facility] Comment on above: Performed By: #### L [id number] #### [facility] [address] [address] Ashlee Hull M.D. [id number] Platelets (Bld) [#/Vol] 234 10*3/uL Normal 150-400 [facility] Comment on above: Performed By: #### L [id number] #### [facility] [address] [address] Ashlee Hull M.D. [id number] RBC (Bld) [#/Vol] 4.18 10*6/uL Normal 4.00-5.20 [facility] Comment on above: Performed By: #### L [id number] #### [facility] [address] [address] Ashlee Hull M.D. [id number] WBC (Bld) [#/Vol] 7.36 10*3/uL Normal 4.50-11.00 [facility] Comment on above: Performed By: #### L [id number] #### [facility] [address] [address] Ashlee Hull M.D. [id number] CHEM 709-20-2024 Anion gap [Moles/Vol] 22 mmol/L High 10-20 [facility] Comment on above: Order Comment: [facility] has implemented the eGFR calculation approach that does not have a coefficient for race that conforms to the NKF-ASN Task Force Recommendations. Performed By: #### 4 [id number] #### [facility] [address] [address] Ashlee Hull M.D. [id number] Performed By: #### 4 [id number] #### [facility] [address] [id number] Ashlee Hull M.D. [id number] Chloride [Moles/Vol] 95 mmol/L Low 98-108 [facility] Comment on above: Order Comment: [facility] has implemented the eGFR calculation approach that does not have a coefficient for race that conforms to the NKF-ASN Task Force Recommendations. Performed By: #### 4 [id number] #### [facility] [address] [address] Ashlee Hull M.D. [id number] Performed By: #### 4 [id number] #### [facility] [address] [address] Ashlee Hull M.D. [id number] Creatinine [Mass/Vol] 1.06 mg/dL Normal 0.60-1.10 [facility] Comment on above: Order Comment: [facility] has implemented the eGFR calculation approach that does not have a coefficient for race that conforms to the NKF-ASN Task Force Recommendations. Performed By: #### 4 [id number] #### [facility] [address] [address] Ashlee Hull M.D. [id number] Performed By: #### 4 [id number] #### [facility] [address], [place] [address] Ashlee Hull M.D. [id number] EGFR 56 mL/min/1.73 m2 Low >=60 [facility] Comment on above: Order Comment: [facility] has implemented the eGFR calculation approach that does not have a coefficient for race that conforms to the NKF-ASN Task Force Recommendations. Result Comment: Natacha mated GFR was calculated using the 2020 CKD-EPI creatinine equation. Estimated GFR was calculated using the 2020 CKD-EPI creatinine equation. Performed By: #### 4 [id number] #### [facility] [address] [address] Ashlee Hull M.D. [id number] Result Comment: Natacha mated GFR was calculated using the 2020 CKD-EPI creatinine equation. Performed By: #### 4 [id number] #### [facility] [address], [place] [address] Ashlee Hull M.D. [id number] Glucose [Mass/Vol] 107 mg/dL High 65-99 [facility] Comment on above: Order Comment: [facility] has implemented the eGFR calculation approach that does not have a coefficient for race that conforms to the NKF-ASN Task Force Recommendations. Performed By: #### 4 [id number] #### [facility] [address] [address] Ashlee Hull M.D. [id number] Performed By: #### 4 [id number] #### [facility] [address] [address] Ashlee Hull M.D. [id number] HCO3 (Bld) [Moles/Vol] 23 mmol/L Normal 21-32 [facility] Comment on above: Order Comment: [facility] has implemented the eGFR calculation approach that does not have a coefficient for race that conforms to the NKF-ASN Task Force Recommendations. Performed By: #### 4 [id number] #### [facility] [address] [address] Ashlee Hull M.D. [id number] Performed By: #### 4 [id number] #### [facility] [address] [address] Ashlee Hull M.D. [id number] Potassium [Moles/Vol] 4.8 mmol/L Normal 3.5-5.1 [facility] Comment on above: Order Comment: [facility] has implemented the eGFR calculation approach that does not have a coefficient for race that conforms to the NKF-ASN Task Force Recommendations. Performed By: #### 4 6953 #### [facility] [address] [address] Ashlee Hull M.D. [id number] Performed By: #### 4 [id number] #### [facility] [address], [place] [address] Ashlee Hull M.D. [id number] Sodium [Moles/Vol] 135 mmol/L Normal 135-145 [facility] Comment on above: Order Comment: [facility] has implemented the eGFR calculation approach that does not have a coefficient for race that conforms to the NKF-ASN Task Force Recommendations. Performed By: #### 4 6953 #### [facility] [address] [address] Ashlee Hull M.D. [id number] Performed By: #### 4 [id number] #### [facility] [address] [address] Ahslee Hull M.D. [id number] Urea nitrogen [Mass/Vol] 21 mg/dL Normal 8-25 [facility] Comment on above: Order Comment: [facility] has implemented the eGFR calculation approach that does not have a coefficient for race that conforms to the NKF-ASN Task Force Recommendations. Performed By: #### 4 6953 #### [facility] [address] [address] Ashlee Hull M.D. [id number] Performed By: #### 4 [id number] #### [facility] [address], [place] [address] Ashlee Hull M.D. [id number] Urea nitrogen/Creatinine [Mass ratio] 19.8 mg/mg Normal 10.0-20.0 [facility] Comment on above: Order Comment: [facility] has implemented the eGFR calculation approach that does not have a coefficient for race that conforms to the NKF-ASN Task Force Recommendations. Performed By: #### 4 [id number] #### [facility] [address], [place] [address] Ashlee Hull M.D. [id number] Performed By: #### 4 [id number] #### [facility] [address], [place] [address] Ashlee Hull M.D. [id number] CT ABDOMEN PELVIS WITHOUT CO NTRASTon 09-20-2024 CT ABDOMEN PELVIS WITHOUT CONTRAST EXAMINATION: CT OF THE ABDOMEN AND PELVIS WITHOUT CONTRAST 09/20/2024 TECHNIQUE: CT of the abdomen and pelvis was performed without the administration of intravenous contrast. Multiplanar reformatted images are provided for review. Dose modulation, iterative reconstruction, and/or weight based adjustment of the mA/kV was utilized to reduce the radiation dose to as low as reasonably achievable. COMPARISON: None. HISTORY: ORDERING SYSTEM PROVIDED HISTORY: LLQ abdominal pain; TECHNOLOGIST PROVIDED HISTORY: Illness/Other Acuity: Acute Reason for Exam: LLQ abdominal pain this morning Type of Encounter: Initial Additional Signs and Symptoms: No FINDINGS: Lower Chest: Lung bases demonstrate mild atelectasis. Organs: Liver demonstrates fatty infiltration but no focal disease. Status post cholecystectomy. Pancreas and spleen, adrenals, right kidney aorta and IVC appear stable. Punctate left nephrolithiasis but no obstructive uropathy. GI/Bowel: Constipation and stool impaction in the rectum. Mild diverticulosis but no acute diverticulitis. No colitis or enteritis. Pelvis: Urinary bladder appears unremarkable. Status post hysterectomy. No evidence of significant hernia or lymphadenopathy. Peritoneum/Retroperit oneum: No retroperitoneal lymphadenopathy or acute mesenteric findings. Fat-containing periumbilical hernia without bowel involvement. Bones/Soft Tissues: Lumbar spine and sacrum appear unremarkable. No soft tissue abnormality. IMPRESSION: 1. Constipation and stool impaction in the rectum. 2. Mild diverticulosis but no acute diverticulitis. 3. Fatty infiltration of the liver. 4. Punctate left nephrolithiasis but no obstructive uropathy. 5. Fat-containing periumbilical hernia without bowel involvement. 6. Status post cholecystectomy and hysterectomy. MS/lab Workstation ID: [id number] Dictated by: MAGGY LUIS on TueSep 20, 2024 4:01:25 PM EST Transcribed by: BEATA AHN on TueSep 20, 2024 4:04:27 PM EST Finalized by: MAGGY LUIS on [place] Sep 23, 2024 6:46:42 PM EST [facility] Comment on above: Order Comment: Injur y/Trauma or Illness?:Illness/Other How long have you had these symptoms (acute/chronic)?:Acute Reason for exam?:LLQ abdominal pain this morning Type of Exam?:Initial Additional signs and symptoms?:no ED Prov Noteon 09-20-2024 ED Prov Note EMERGENCY MEDICINE PROVIDER NOTE [facility] Encounter Date: 09/20/24 History obtained by: patient, triage note, chart review HPI/ROS This is a 73 y.o. female with a past medical history of diverticulitis who presents emergency department reporting left lower quadrant abdominal pain. Patient reports that started this morning. She describes it as sharp and states she would rated 9/10 at this time. Patient has taken Tylenol without relief. She states it is radiating across her abdomen now. Sh is reporting nausea but no vomiting. No diarrhea. No constipation. No dysuria. No fevers or chills. No chest pain or shortness of breath.e Medical Decision Making The patient's medical chart, vital signs and nursing notes were reviewed. Differential Diagnosis: infectious, inflammatory, structural, metabolic including but not limited to: Diverticulitis, abscess, perforation, colitis, bowel obstruction, neoplastic disease Patient is well-appearing and nontoxic. Vital signs are normal. She is afebrile. She is alert and oriented. No neurofocal deficit. Lungs are clear to auscultation. Heart is regular rate and rhythm. Abdomen is soft with significant tenderness to the left lower quadrant. She is mildly guarding. No rigidity. No peritoneal signs. See complete physical exam below. Patient was given Zofran and fentanyl for symptom management. CT shows constipation with fecal impaction. Patient denies constipation and states she had a normal bowel movement yesterday. Chemistries are unremarkable. CBC shows no leukocytosis or anemia. Patient reported medications did improve her pain. She states she has not had 1 today but she has no rectal pain or no feeling of constipation at this time. She was discharged home with medications for this. Patient to be discharged in stable condition. Patient instructed to return to the ED with any new or worsening symptoms. Strict return guidelines discussed. Patient verbalized understanding and agrees with plan of care. This patient was seen by myself in conjugation with emergency medicine attending physician, Dr. Rivers. I discussed this patient including his/her history, physical exam, laboratory findings, and imaging with the attending physician who is in agreement with this plan. Impressions: 1. Abdominal pain, unspecified abdominal location 2. Elevated blood pressure reading MDM Data MDM Data: External Documents/Labs Reviewed, CT interpretation reviewed, Shared decision making utilized, and Social Determinants of Health Impacted Treatment/Disposition Physical Exam Initial Vital Signs BP (!) 135/95 (BP Location: Right arm, Patient Position: Sitting) Pulse 90 Temp 97.5 degrees F (36.4 degrees C) Resp 18 Ht 5' 5 Wt 93 kg (205 lb) SpO2 94% BMI 34.11 kg/m Vital Signs During ED Visit (as charted by nursing) Patient Vitals for the past 24 hrs: BP Temp Pulse Resp SpO2 Height Weight 09/20/24 1533 -- -- -- 18 -- -- -- 09/20/24 1446 -- -- -- -- 94 % 5' 5 93 kg (205 lb) 09/20/24 1442 (!) 135/95 97.5 degrees F (36.4 degrees C) 90 (!) 24 -- -- -- Physical Exam Vitals and nursing note reviewed. Constitutional: General: She is not in acute distress. Appearance: Normal appearance. She is not ill-appearing, toxic-appearing or diaphoretic. HENT: Head: Normocephalic. Nose: Nose normal. Mouth/Throat: Mouth: Mucous membranes are moist. Pharynx: Oropharynx is clear. Eyes: Conjunctiva/sclera: Conjunctivae normal. Pupils: Pupils are equal, round, and reactive to light. Cardiovascular: Rate and Rhythm: Normal rate and regular rhythm. Pulses: Normal pulses. Heart sounds: Normal heart sounds. Musculoskeletal: General: Normal range of motion. Cervical back: Neck supple. Pulmonary: Effort: Pulmonary effort is normal. No respiratory distress. Breath sounds: Normal breath sounds. No wheezing, rhonchi or rales. Abdominal: General: Bowel sounds are normal. Palpations: Abdomen is soft. Tenderness: There is abdominal tenderness in the left lower quadrant. There is no right CVA tenderness, left CVA tenderness or guarding. Skin: General: Skin is warm and dry. Capillary Refill: Capillary refill takes less than 2 seconds. Neurological: General: No focal deficit present. Mental Status: She is alert and oriented to person, place, and time. Cranial Nerves: No cranial nerve deficit. Motor: No weakness. Psychiatric: Mood and Affect: Mood normal. Behavior: Behavior normal. Radiographic Imaging (if any) During ED Visit CT Abdomen Pelvis Without Contrast Preliminary Result 1. Constipation and stool impaction in the rectum. 2. Mild diverticulosis but no acute diverticulitis. 3. Fatty infiltration of the liver. 4. Punctate left nephrolithiasis but no obstructive uropathy. 5. Fat-containing periumbilical hernia without bowel involvement. 6. Status post cholecystectomy and hysterectomy (more content not included)... Normal [facility] Ambulatory Visit Summaryon 1 Ambulatory [...] physician. Your Care Team Attending Physician - Rimma Kelly MD. Primary Care Physician - Rimma Kelly MD. This Is Your Medications List Misc [...] mg Cap) glipiZIDE (glipiZIDE 5 mg Tab) hydrochlorothiazide-l isinopril (hydrochlorothiazide- lisinopril 12.5 mg-20 mg Tab) meloxicam (meloxicam 15 [...] Appointments Tuesday 9:20 AM EST With: Where: [address] [id number]- Tuesday 1:15 PM EST With: Rimma Kelly MD Where: [address] [address]- 2024 2:30 PM EDT With: Where: [address] [address]- You Need to Complete the Following Comprehensive [...] Missing, Print Label By Order Location Urine Microalbumin/Creatini ne Ratio, Urine, Routine collect, 06/26/24, Order for [...] By Mouth 2 times a day Unchanged hydrochlorothiazide-l isinopril (hydrochlorothiazide- lisinopril 12.5 mg-20 mg Tab) 1 Tablets By [...] Prescription (BAYLEE (more content not included)... Normal [facility] Office/Clini c Noteon 07-02-2024 [...] Precautions for MERS/COVID-19 : N/A Rachel Bolanos 06/26/2024 14:44 EDT Medicare/Medicaid Summary Chief Complaint [...] Present : No actual or suspected pain Rachel Bolanos Zafar Clements 06/26/2024 14:44 EDT Hearing and Vision Screening FT FT Whisper Test Comments : no hearing deficits Vision Screen Comments : wears corrective lens. Goes to [facility] yearly. Brenda Bolanosjhon Clements 06/26/2024 14:44 EDT Advance Directive FT Advance Directive : No Patient Wishes to Receive Further Information on Advance Directives : No Organ Donation Consent : No AlbinBrendajhon Clements 06/26/2024 14:44 EDT Procedures / Surgeries FT [...] 0 ; Comments: 03/20/2020 7:18 Leigh Ann Ryaa RN right ; Last Reviewed Dt/Tm: 06/26/2024 [...] 07/19/2023 7:38 EDT - Shannon León LPN 2010 normal ; Last Reviewed Dt/Tm: 06/26/2024 14:49:17 [...] 14:50:36 ED (more content not included)... Normal [facility] Comment on above: Result Comment: Elec tronically Signed By: Rimma Kelly MD\.br\Date and Time Signed: 07/02/24 15:04 EDT\.br\Electronically [...] calf Your Care Team Attending Physician - Rimma Kelly MD Primary Care Physician - Rimma Kelly MD. This Is Your Medications List Contact prescribing [...] mg Cap) glipiZIDE (glipiZIDE 5 mg Tab) hydrochlorothiazide-l isinopril (hydrochlorothiazide- lisinopril 12.5 mg-20 mg Tab) meloxicam (meloxicam 15 [...] Appointments Tuesday 9:20 AM EST With: Where: [address] [phone]- Tuesday 1:15 PM EST With: Audie BIGGS, Rimma Alfredo Where: [address] [address]- 2024 2:30 PM EDT With: Where: [address] [phone]- Medications What How Much When Why Instructions [...] prescribing physician if questions or concerns Unchanged hydrochlorothiazide-l isinopril (hydrochlorothiazide- lisinopril 12.5 mg-20 mg Tab) 1 Tablets By [...] oxybutynin (oxybu (more content not included)... Normal [facility] Ambulatory Visit Summary Ambulatory Visit Summary DAKSHA CORLEY :1950 Visit Date:06/26/2024 Ambulatory Visit Instructions Your Diagnosis Type 2 diabetes mellitus with morbid obesity HTN (hypertension) Morbid (severe) obesity due to excess calories ELY (obstructive sleep apnea) Varicose veins of calf Your Care Team Attending Physician - Rimma Kelly MD Primary Care Physician - Rimma Kelly MD This Is Your Medications List Misc [...] mg Cap) glipiZIDE (glipiZIDE 5 mg Tab) hydrochlorothiazide-l isinopril (hydrochlorothiazide- lisinopril 12.5 mg-20 mg Tab) meloxicam (meloxicam 15 [...] Tuesday 1:15 PM EST With: Audie BIGGS, Rimma Alfredo Where: [facility] Medicine [place] [id number]- Medications What How Much When Why Instructions [...] By Mouth 2 times a day Unchanged hydrochlorothiazide-l isinopril (hydrochlorothiazide- lisinopril 12.5 mg-20 mg Tab) 1 Tablets By [...] (Foggy mind) Biaxin CeleBREX Nubain (Foggy mind) Sulfabenzamide/Sulfac etamide/Sulfathiazole (Unknown) Vioxx nalbuphine (Unknown) Problems Ongoing - [...] neuropathy Pos (more content not included)... Normal [facility] Office/Clini c Noteon 06-26-2024 [...] medicare to cover it. Fax to # [phone] ( [facility]) Needs refills of her her gabapentin, [...] in semaglutide dosing suggested. Ordered: A1c POC 51404 [facility] [place] Ambulatory Referral 2. HTN (hypertension) (I10: Essential (primary) hypertension) Management of essential hypertension was not a primary focus of today's discussion, but continued adherence to current treatment regimens is presumed. Ordered: A1c POC 65389 [facility] Internal Ambulatory Referral 3. Morbid (severe) obesity [...] enhance weight loss efficacy. Ordered: A1c POC 94228 [facility] Internal Ambulatory Referral 4. ELY (obstructive s (more content not included)... Normal [facility] Comment on above: Result Comment: Elec tronically Signed By: Rimma Kelly MD\.br\Date and Time Signed: 06/26/24 14:49 EDT Ambulatory Visit Summaryon 0 03-27-2024 Ambulatory Visit Summary Ambulatory Visit Summary DAKSHA CORLEY :1950 Visit Date:03/27/2024 Ambulatory Visit Instructions Your Diagnosis Type 2 diabetes mellitus with morbid obesity HTN (hypertension) BMI 39.0-39.9,adult Class 1 obesity due to excess calories in adult Nonsmoker Peripheral neuropathy Your Care Team Attending Physician - Rimma Kelly MD. Primary Care Physician - Rimma Kelly MD This Is Your Medications List gabapentin [...] oral tablet) glipiZIDE (glipiZIDE 5 mg Tab) hydrochlorothiazide-l isinopril (hydrochlorothiazide- lisinopril 12.5 mg-20 mg Tab) meloxicam (meloxicam 15 [...] Follow-Up Appointments Tuesday 1:00 PM EDT Where: [facility] Medicine [place] Normal [facility] Office/Clini c Noteon 03-27-2024 [...] - No other issues Ordered: A1c POC 83224 Body Mass Index (BMI) documented 3008F Current [...] - Continue as before Ordered: A1c POC 34299 Body Mass Index (BMI) documented 3008F Current [...] - BMI education added Ordered: A1c POC 63437 Body Mass Index (BMI) documented 3008F Current [...] Diet and exercise advised Ordered: A1c POC 03079 Body Mass Index (BMI) documented 3008F Current [...] continue to not smoke Ordered: A1c POC 77828 Body Mass Index (BMI) documented 3008F Current [...] lunch, # 360 cap(s), Refills(s) 0, Pharmacy: [facility], 165, cm, 03/27/24 10:13:00 EDT, Height/Length Dosing, 107.9, kg, 03/27/24 10:13:00 EDT, Weight Dosing semaglutide, 0.25 mg, SubCutaneous, qWeek, # 3 mL, Refills(s) 0, Pharmacy: [facility], 165, cm, 03/27/24 10:13:00 EDT, Height/Length Dosing, 107.9, kg, 03/27/24 10:13:00 EDT, Weight Dosing Follow-up No qualifying data available Patient Education BMI for Adults Problem List/Past Medical History Ongoing Advanced care planning/counseling discussion Anticoagulated Aortic atherosclerosis Back pain BMI 39.0-39.9,adult Chronic diarrhea Diverticular disease Family hx of aortic aneurysm Feeling of incomplete bladder emptying Frequency of (more content not included)... Normal [facility] Comment on above: Result Comment: Elec tronically Signed By: Audie BIGGS, Rimma Alfredo\.br\Date and Time Signed: 03/27/24 10:59 EDT [...] replacement. Pressure setting 11 Fax to [facility] [phone] Do you have any of the following [...] EA, Oral, BID, 210 gram, Refill(s) 0, [facility], 165, cm, 01/03/24 10:13:00 EDT, Height/Length Dosing, 108.1, kg, 01/03/24 10:13:00 EDT, Weight Dosing 2. Type 2 diabetes mellitus with morbid obesity (E11.69: Type 2 diabetes mellitus with other specified complication) - Will recheck A1c today. Ordered: cholestyramine, 5 gram, 1 EA, Oral, BID, 210 gram, Refill(s) 0, [facility], 165, cm, 01/03/24 10:13:00 EDT, Height/Length Dosing, 108.1, kg, 01/03/24 10:13:00 EDT, Weight Dosing 3. BMI 39.0-39.9,adult (Z68.39: Body mass index [BMI] 39.0-39.9, adult) - BMI education uploaded Ordered: cholestyramine, 5 gram, 1 EA, Oral, BID, 210 gram, Refill(s) 0, [facility], 165, cm, 01/03/24 10:13:00 EDT, Height/Length Dosing, 108.1, kg, 01/03/24 10:13:00 EDT, Weight Dosing 4. Class 1 obesity due to excess calories in adult (E66.09: Other obesity due to excess calories) - Diet and exercise advised Ordered: cholestyramine, 5 gram, 1 EA, Oral, BID, 210 gram, Refill(s) 0, [facility], 165, cm, 01/03/24 10:13:00 EDT, Height/Length Dosing, 108.1, kg, 01/03/24 10:13:00 EDT, Weight Dosing 5. Nonsmoker (Z78.9: Other specified health status) - Please continue to not smoke Ordered: cholestyramine, 5 gram, 1 EA, Oral, BID, 210 gram, Refill(s) 0, [facility], 165, cm, 01/03/24 10:13:00 EDT, Height/Length Dosing, 108.1, kg, 01/03/24 10:13:00 EDT, Weight Dosing 6. ELY (obstructive sleep apnea) (G47.33: Obstructive sleep apnea (adult) (pediatric)) - Will redo the CPAP Ordered: cholestyramine, 5 gram, 1 EA, Oral, BID, 210 gram, Refill(s) 0, [facility], 165, cm, 01/03/24 10:13:00 EDT, Height/Length Dosing, 108.1, kg, 01/03/24 10:13:00 EDT, Weight Dosing 7. Chronic diarrhea (K52.9: Noninfective gastroenteritis and colitis, unspecified) - Will try Cholestyramine given hx of gallbladder. - Maybe 2/2 partial colectomy. Ordered: cholestyramine, 5 gram, 1 EA, Oral, BID, 210 gram, Refill(s) 0, [facility], 165, cm, 01/03/24 10:13:00 EDT, Height/Length Dosing, 108.1, kg, 01/03/24 10:13:00 EDT, Weight Dosing 8. Family hx of aortic aneurysm (Z82.49: Family history of ischemic heart disease and other diseases of the circulatory system) U/S ordered. Ordered: US Aorta Orders: gabapentin, 300 mg = 1 cap(s), Oral, BID, # 180 cap(s), Refills(s) 0, Pharmacy: [facility], 165, cm, 01/03/24 10:13:00 EDT, Height/Length [...] Historical Abdomi (more content not included)... Normal [facility] Comment on above: Result Comment: Elec tronically Signed By: Rimma Kelly MD\.br\Date and Time Signed: 03/02/24 10:56 EDT RAD - Ultrasound Reporton RAD - Ultrasound Report [id number] .00TIFF [facility] Ambulatory Visit Summaryon 0 01-03-2024 Ambulatory Visit Summary DAKSHA CORLEY Nat :1950 Visit Date:01/03/2024 Ambulatory Visit Instructions Your Diagnosis HTN (hypertension) Type 2 diabetes mellitus with morbid obesity BMI 39.0-39.9,adult Class 1 obesity due to excess calories in adult Nonsmoker ELY (obstructive sleep apnea) Chronic diarrhea Family hx of aortic aneurysm Your Care Team Attending Physician - Rimma Kelly MD Primary Care Physician - Rimma Kelly MD This Is Your Medications List cholestyramine [...] mg Tab) glipiZIDE (glipiZIDE 5 mg Tab) hydrochlorothiazide-l isinopril (hydrochlorothiazide- lisinopril 12.5 mg-20 mg Tab) meloxicam (meloxicam 15 [...] Tuesday 10:00 AM EDT With: Audie BIGGS, Rimma Alfredo Where: [address] [address]- \.br\ You Need to Complete the Following\.br\ US Aorta, 01/03/24, Routine, Order for future visit, Transport Mode: Ambulatory, Reason: Other (please specify), No, Family hx of aortic aneurysm, Family Hx. Recommended by brothers Coagulating Bath Operator., pp_set_radiology_ subspecialty, Not Required, [facility]\.br\ Medications\.br\ What How Much When Why Instructions\.br\ New cholestyramine (cholestyramine 4 g/ 5 g Oral Pwdr) 1 Each By Mouth 2 times a day HTN (hypertension) Type 2 diabetes mellitus with morbid obesity BMI 39.0-39.9,adult Class 1 obesity due to excess calories in adult Nonsmoker ELY (obstructive sleep apnea) Chronic diarrhea Pickup at [facility]\.br\ Unchanged gabapentin (gabapentin 300 mg Cap) 1 Capsules By Mouth 2 times a day Pickup at [facility]\.br\ Unchanged ascorbic acid (ascorbic acid 1000 [...] physician if questions or concerns \.br\ Unchanged hydrochlorothiazi de-lisinopril (hydrochlorothiaz judson-lisinopril 12.5 mg-20 mg Tab) 1 Tablets By [...] if questions or concerns \.br\ Pharmacy Information\.br\ [facility]: [address] [place], [place] [id number] [phone]\.br\ Allergies\.br\ Dilaudid (Foggy mind)\.br\ Biaxin\.br\ CeleBREX\.br\ Nubain (Foggy mind)\.br\ Sulfabenzamide/Mortensen lfacetamide/Sulfa thiazole (Unknown)\.br\ Vioxx\.br\ nalbuphine (Unknown)\.br\ Problems\.br\ Ongoing - Any problem that you are currently receiving treatment for.\.br\ Advanced care planning/counseli ng discussion\.br\ Anticoagulated\.b r\ Aortic atherosclerosis\. br\ Back pain\.br\ BMI 39.0-39.9,adult\. br\ Chronic diarrhea\.br\ Diverticular disease\.br\ Family hx of aortic aneurysm\.br\ Feeling of incomplete bladder emptying\.br\ Frequency of urination\.br\ Gout\.br\ HTN (hypertension)\.b r\ Kidney stone\.br\ Morbid obesity due to excess calories\.br\ VOGEL (nonalcoholic steatohepatitis)\ .br\ ELY (obstructive sleep apnea)\.br\ Other urethral stricture, [...] for choosing us for your care.\.br\ \.br\ [facility] - Clinical Noteon Retail - Clinical Note [id number] .00TIFF Normal [facility] Consultation Noteon 11-02-19 Consultation Note [id number] .00TIFF Normal [facility] XR FOOT LT MIN 3 VIEWSon XR [...] TARAS WILEY Date: 2022-11-21 01:25 Normal [facility] MARQUEZ by IFAon 09-09-2022 Antinuclear Antibodies, IFA Negative Normal [facility] Comment on above: Result Comment: Nega tive <1:80 Borderline 1:80 Positive >1:80 ICAP nomenclature: AC-0 For more information about Hep-2 cell patterns use ANApatterns.org, the official website for the International Consensus on Antinuclear Antibody (MARQUEZ) Patterns (ICAP). Performed By: #### A NAIFA ####[facility] [address] [place] [address]Dr. Marcella Cortes ANTISTREPTOLYSIN O AB (ASO)o n 09-08-2022 Antistreptolysin O Ab 104.5 IU/mL Normal 0.0-200.0 [facility] Comment on above: Performed By: #### A SOAB #### [facility] [address] [place] [address] [address] Marcella Cortes RHEUMATOID FACTORon 09-08-20 RA Latex Turbid. <10.0 Normal <14.0 [facility] Comment on above: Performed By: #### R F #### [facility] [address] [place], [place] [address] Dr. Marcella Cortes CBC AUTO DIFFon 09-07-2022 BASO # 0.0 103/ul Normal 0.0-0.1 [facility] Comment on above: Performed By: #### C BC ####[facility] [address] [place] [address]DrPastora Cortes Basophils/100 WBC (Bld) 0.5 % Normal 0.2-2.0 [facility] Comment on above: Performed By: #### C BC ####[facility] [address] [place] [address]DrPastora Cortes EO # 0.1 103/ul Normal 0.0-0.7 [facility] Comment on above: Performed By: #### C BC ####[facility] [address] [place] [address]DrPastora Cortes Eosinophils/100 WBC (Bld) 1.4 % Normal 0.9-7.0 [facility] Comment on above: Performed By: #### C BC ####[facility] [address] [place] [id number] Cortes Erythrocyte distribution width (RBC) [Ratio] 12.6 % Normal 11.0-15.0 [facility] Comment on above: Performed By: #### C BC ####[facility] [address] [place] [id number] Cortes Hematocrit (Bld) [Volume fraction] 37.1 % Normal 36.0-48.0 [facility] Comment on above: Performed By: #### C BC ####[facility] [address] [place] [id number] Cortes Hemoglobin (Bld) [Mass/Vol] 12.4 g/dL Normal 12.0-16.0 [facility] Comment on above: Performed By: #### C BC ####[facility] [address] [place] [id number]. Marcella Cortes IG # 0.03 10e3/ul Normal 0.00-0.03 [facility] Comment on above: Performed By: #### C BC ####[facility] [address] [place] [address]Dr. Marcella Cortes IG % 0.5 % Normal 0.0-0.5 [facility] Comment on above: Performed By: #### C BC ####[facility] [address] [place] [address]Dr. Marcella Cortes LYMPH # 2.4 103/ul Normal 1.2-3.8 [facility] Comment on above: Performed By: #### C BC ####[facility] [address] [place] [address]Dr. Marcella Cortes Lymphocytes/100 WBC (Bld) 36.2 % Normal 20.5-60.0 [facility] Comment on above: Performed By: #### C BC ####[facility] [address] [place] [address]Dr. Marcella Cortes MANUAL DIFF REQ NO Normal [facility] Comment on above: Performed By: #### C BC ####[facility] [address] [place] [address]Dr. Marcella Cortes MCH (RBC) [Entitic mass] 30.3 pg Normal 26.7-34.0 [facility] Comment on above: Performed By: #### C BC ####[facility] [address] [place] [address]Dr. Marcella Cortes MCHC (RBC) [Mass/Vol] 33.4 g/dL Normal 29.9-35.2 [facility] Comment on above: Performed By: #### C BC ####[facility] [address] [place] [address]Dr. Marcella Cortes MCV (RBC) [Entitic vol] 90.7 fL Normal 81.0-99.0 [facility] Comment on above: Performed By: #### C BC ####[facility] [address] [place] [id number]. Marcella Cortes MONO # 0.4 103/ul Normal 0.3-0.8 [facility] Comment on above: Performed By: #### C BC ####[facility] [address] [place] [address]Dr. Marcella Cortes Monocytes/100 WBC (Bld) 5.9 % Normal 1.7-12.0 [facility] Comment on above: Performed By: #### C BC ####[facility] [address] [place] [id number]. Marcella Cortes NEUT # 3.7 103/ul Normal 1.4-6.5 [facility] Comment on above: Performed By: #### C BC ####[facility] [address] [place] [address]Dr. Marcella Cortes Neutrophils/100 WBC (Bld) 55.5 % Normal 43.0-75.0 [facility] Comment on above: Performed By: #### C BC ####[facility] [address] [place] [address]Dr. Marcella Cortes Platelet mean volume (Bld) [Entitic vol] 8.7 fL Critically low 9.5-13.5 [facility] Comment on above: Performed By: #### C BC ####[facility] [address] [place] [id number]. Marcella Cortes PLT 224 103/ul Normal 150-450 [facility] Comment on above: Performed By: #### C BC ####[facility] [address] [place] [id number]. Marcella Cortes RBC 4.09 106/ul Critically low 4.20-5.40 [facility] Comment on above: Performed By: #### C BC ####[facility] [address] [place] [id number]. Marcella Cortes WBC 6.7 103/ul Normal 4.0-11.0 [facility] Comment on above: Performed By: #### C BC ####[facility] [address] [place] [address]DrPastora Cortes CRPon 09-07-2022 CRP 0.7 mg/dL Normal <=1.0 [facility] Comment on above: Performed By: #### C RP, URIC, LIPID, CMP #### [facility] [address] [place] [address] [address] Marcella Cortes GLYCOHEMOGLOBIN A1Con 2021 ADA RECOMMENDATION SEE BELOW Normal [facility] Comment on above: Result Comment: ADA RECOMMENDED LIMIT 4.0 - 6.0 ADA THERAPEUTIC TARGET < 7.0 ACTION SUGGESTED > 7.0 Performed By: #### A 1C ####[facility] [address] [place] [address]DrPastora Cortes Glucose [Mass/Vol] 186 mg/dL Normal [facility] Comment on above: Performed By: #### A 1C ####[facility] [address] [place] [address]DrPastora Cortes HbA1c (Bld) [Mass fraction] 8.1 % Critically high 4.5-6.2 [facility] Comment on above: Performed By: #### A 1C ####[facility] [address] [place] [address]Dr. Marcella Cortes LIPID PROFILEon 09-07-2022 CHOL-HDL RATIO NORM SEE BELOW Normal [facility] Comment on above: Result Comment: 3.3 - 4.4 LOW RISK 4.4 - 7.1 AVERAGE RISK 7.1 - 11.0 MODERATE RISK >11.0 HIGH RISK Performed By: #### C RP, URIC, LIPID, CMP #### [facility] [address] [place] [address] [address] Marcella Cortes Cholesterol [Mass/Vol] 187 mg/dL Normal <=200 [facility] Comment on above: Performed By: #### C RP, URIC, LIPID, CMP #### [facility] [address] [place] [address] [address] Marcella Cortes Cholesterol in HDL [Mass/Vol] 44 mg/dL Normal 40-60 [facility] Comment on above: Performed By: #### C RP, URIC, LIPID, CMP #### [facility] [address] [place] [address] [address] Marcella Cortes Cholesterol in LDL [Mass/Vol] 97.0 mg/dL Normal [facility] Comment on above: Performed By: #### C RP, URIC, LIPID, CMP #### [facility] [address] [place] [address] [address] Marcella Cortes Cholesterol.total/C holesterol in HDL [Mass ratio] 4.3 {ratio} Normal [facility] Comment on above: Performed By: #### C RP, URIC, LIPID, CMP #### [facility] [address] [place] [address] [address] Marcella Cortes HDL NORMAL > or = 60 mg/dl - LO W CARDIOVASCULAR RISK <40 mg/dl - HIGH CARDIOVASCULAR RISK Normal [facility] Comment on above: Performed By: #### C RP, URIC, LIPID, CMP #### [facility] [address] [place] [address] [address] Marcella Cortes LDL CALC NORMAL SEE BELOW Normal [facility] Comment on above: Result Comment: <100 mg/dl OPTIMAL 100 - 129 mg/dl NEAR OR ABOVE OPTIMAL 130 - 159 mg/dl BORDERLINE HIGH 160 - 189 mg/dl HIGH >190 mg/dl VERY HIGH Performed By: #### C RP, URIC, LIPID, CMP #### [facility] [address] [place] [address] [address] Marcella Cortes Triglyceride [Mass/Vol] 230 mg/dL Critically high <=150 [facility] Comment on above: Performed By: #### C RP, URIC, LIPID, CMP #### [facility] [address] [place] [address] [address] Marcella Cortes VLDL CALC 46.0 mg/dL Normal [facility] Comment on above: Performed By: #### C RP, URIC, LIPID, CMP #### [facility] [address] [place] [address] [address] Marcella Cortes PROF 14(COMP METB)on 022 Albumin [Mass/Vol] 3.8 g/dL Normal 3.4-5.0 [facility] Comment on above: Performed By: #### C RP, URIC, LIPID, CMP #### [facility] [address] [place] [address] [address] Marcella Cortes Albumin/Globulin [Mass ratio] 0.9 {ratio} Normal [facility] Comment on above: Performed By: #### C RP, URIC, LIPID, CMP #### [facility] [address] [place] [address] [address] Marcella Cortes ALP [Catalytic activity/Vol] 46 U/L Normal 46-116 [facility] Comment on above: Performed By: #### C RP, URIC, LIPID, CMP #### [facility] [address] [place] [address] [address] Marcella Cortes ALT [Catalytic activity/Vol] 29 U/L Normal 14-59 [facility] Comment on above: Performed By: #### C RP, URIC, LIPID, CMP #### [facility] [address] [place] [address] Dr. Marcella Cortes Anion gap [Moles/Vol] 16.2 mmol/L Normal [facility] Comment on above: Performed By: #### C RP, URIC, LIPID, CMP #### [facility] [address] [place] [address] Dr. Marcella Cortes AST [Catalytic activity/Vol] 20 U/L Normal 15-37 [facility] Comment on above: Performed By: #### C RP, URIC, LIPID, CMP #### [facility] [address] [place] [address] Dr[address] Marcella Cortes Bilirubin [Mass/Vol] 0.4 mg/dL Normal 0.2-1.0 [facility] Comment on above: Performed By: #### C RP, URIC, LIPID, CMP #### [facility] [address] [address] [address] Marcella Cortes Calcium [Mass/Vol] 9.2 mg/dL Normal 8.5-10.1 [facility] Comment on above: Performed By: #### C RP, URIC, LIPID, CMP #### [facility] [address] [address] [address] Marcella Cortes Chloride [Moles/Vol] 98 mmol/L Normal 98-107 [facility] Comment on above: Performed By: #### C RP, URIC, LIPID, CMP #### [facility] [address] [place] [address] Dr. Marcella Cortes CO2 [Moles/Vol] 26.1 mmol/L Normal 21.0-32.0 [facility] Comment on above: Performed By: #### C RP, URIC, LIPID, CMP #### [facility] [address] [place] [address] Dr. Marcella Cortes Creatinine [Mass/Vol] 0.84 mg/dL Normal 0.55-1.02 [facility] Comment on above: Performed By: #### C RP, URIC, LIPID, CMP #### [facility] [address] [place] [address] Dr. Marcella Cortes EGFR-AF MONTENEGRIN >60 Normal >=60 [facility] Comment on above: Performed By: #### C RP, URIC, LIPID, CMP #### [facility] [address] [place] [address] Dr. Marcella Cortes EGFR-NON AF MONTENEGRIN >60 Normal >=60 [facility] Comment on above: Performed By: #### C RP, URIC, LIPID, CMP #### [facility] [address] [place] [address] Dr. Marcella Cortes Globulin (S) [Mass/Vol] 4.0 g/dL Normal [facility] Comment on above: Performed By: #### C RP, URIC, LIPID, CMP #### [facility] [address] [place] [address] Dr. Marcella Cortes Glucose [Mass/Vol] 163 mg/dL Critically high 74-106 T [facility] Comment on above: Performed By: #### C RP, URIC, LIPID, CMP #### [facility] [address] [place] [address] Dr. Marcella Cortes Potassium [Moles/Vol] 4.3 mmol/L Normal 3.5-5.1 [facility] Comment on above: Performed By: #### C RP, URIC, LIPID, CMP #### [facility] [address] [place] [address] Dr. Marcella Cortes Protein [Mass/Vol] 7.8 g/dL Normal 6.4-8.2 [facility] Comment on above: Performed By: #### C RP, URIC, LIPID, CMP #### [facility] [address] [place] [address] Dr. Marcella Cortes Sodium [Moles/Vol] 136 mmol/L Normal 136-145 [facility] Comment on above: Performed By: #### C RP, URIC, LIPID, CMP #### [facility] [address] [place] [address] Dr. Marcella Cortes Urea nitrogen [Mass/Vol] 15.0 mg/dL Normal 7.0-18.0 [facility] Comment on above: Performed By: #### C RP, URIC, LIPID, CMP #### [facility] [address] [place] [address] Dr. Marcella Cortes Urea nitrogen/Creatinine [Mass ratio] 17.9 mg/mg Normal [facility] Comment on above: Performed By: #### C RP, URIC, LIPID, CMP #### [facility] [address] [place] [address] Dr. Marcella Cortes URIC ACID SERUMon 09-07-2022 Urate [Mass/Vol] 7.4 mg/dL Critically high 2.6-6.0 [facility] Comment on above: Performed By: #### C RP, URIC, LIPID, CMP #### [facility] [address] [place] [address] CARDIAC SCORINGon 022 [...] unspecified complications . COMPARISON: None. ACCESSION NUMBER(S): [id number] ORDERING CLINICIAN: TERRI ROJO TECHNIQUE: Using prospective [...] increased >800 Sanna et al. JCCT 2016 (http://dx.doi.org/10 .1016/j.jcct.2016.11. 003) MANZO Percentile In general, greater than 75th [...] Calcification can be calcuate using link below [email or web address] [email or web address] aRiskScore/RiskScore. aspx Logan et al. JACC 2015 (http://dx.doi.org/10 .1016/j.j acc.2015.08.035) Reading Coagulating Bath Operator: Dr. Jewel Vincent, Date: 03/18/2022 10:08 am Electronically signed by: MACO LUNA MD Normal [facility] US BREAST LEFT LIMITEDon US BREAST LEFT LIMITED Patient: DAKSHA CORLEY. Exam Date: 01/13/2022 : 1950 Gender:F Ordering : DR TERRI ROJO . Admission #: [id number] Family : Order #: [id number] CLICK HERE TO VIEW EXAM RADIOLOGY REPORT [...] PALPABLE LUMP SHOULD BE BIOPSIED. Dictated by: Placido Forde M.D. on 01/13/2022 at 10:49 Approved by: Placido Forde M.D. on 01/13/2022 at 10:54 Normal [facility] MG MAMM SCREEN 3D CAMERON CADon 01-08-2022 MG MAMM SCREEN 3D CAMERON CAD Patient: DAKSHA CORLEY. Exam Date: 01/08/2022 : 1950 Gender:F Ordering : DR TERRI ROJO . Admission #: [id number] Family : Order #: [id number] CLICK HERE TO VIEW EXAM RADIOLOGY REPORT [...] Treatments None Family Cancers None LOCATION: [facility] BREAST COMPOSITION: Heterogeneously dense,which may obscure small [...] PALPABLE LUMP SHOULD BE BIOPSIED. Dictated by: Placido Forde M.D. on 01/08/2022 at 15:16 Approved by: Placido Forde M.D. on 01/08/2022 at 15:21 Normal [facility] XR DEXA BONE DENSITYon 01-08 XR [...] - Low Fracture Risk Electronically authenticated by: PLACIDO FORDE Date: 2022-01-08 11:07 Normal [facility] Vital Signs Date Time Vital Sign Value Performing Clinician Ton bowen 09-05-2023 10:00-0500 Body height 167.64 cm Atif Childs Other [facility] Other 09-05-2023 10:00-0500 Body mass index (BMI) [Ratio] 37.12 kg/m2 Atif Lillian Other [facility] Other 09-05-2023 10:00-0500 Body weight 104.33 kg Atif Lillian Other [facility] Other 05-23-2023 11:15-0400 Body height 167.64 cm Atif Lillian Other [facility] Other 05-23-2023 11:15-0400 Body mass index (BMI) [Ratio] 37.12 kg/m2 Atif Lillian Other [facility] Other 05-23-2023 11:15-0400 Body weight 104.33 kg Atif Lillian Other [facility] Other 03-30-2023 11:15-0400 Body height 167.64 cm Atif Lillian Other [facility] Other 03-30-2023 11:15-0400 Body mass index (BMI) [Ratio] 37.12 kg/m2 Atif Lillian Other [facility] Other 03-30-2023 11:15-0400 Body weight 104.33 kg Atif Lillian Other [facility] Other 02-16-2023 11:15-0400 Body height 167.64 cm Atif Lillian Other [facility] Other 12-08-2022 12:00-0400 Body height 167.64 cm Atif Lillian Other [facility] Other 12-08-2022 12:00-0400 Body mass index (BMI) [Ratio] 37.12 kg/m2 Atif Lillian Other [facility] Other 12-08-2022 12:00-0400 Body weight 104.33 kg Atif Childs Other [facility] Other 11-24-2022 11:30-0500 Body height 167.64 cm Atif Childs Other [facility] Other 11-24-2022 11:30-0500 Body mass index (BMI) [Ratio] 37.93 kg/m2 Atif Childs Other [facility] Other 11-24-2022 11:30-0500 Body weight 106.6 kg Atif Childs Other [facility] Other Encounters Encounter Date Encounter Type Care Provider Facility Start: 06-27-2025 ambulatory Rimma Kelly Facility : [facility] Start: 10-25-2024 End: 10-25-2024 Office outpatient new 45 minutes Nancy Corrales MD Work Phone: [facility] Comment on above: Right epiretinal mem brane (Primary Dx); Nuclear sclerotic cataract of both eyes; Type 2 diabetes mellitus without complication, without long-term current use of insulin ([facility]) Start: 10-25-2024 End: 10-25-2024 Ophthalmology Imaging Ppww Ophth Imaging [facility] Comment on above: Other specified reti nal disorders Start: 10-02-2024 End: 10-02-2024 ambulatory Rimma Kelly Facility: [facility] Start: 09-28-2024 End: 09-28-2024 Lab Drop off Rimma Kelly [facility] Start: 09-28-2024 End: 09-28-2024 ambulatory Rimma Kelly Facility: [facility] Start: 09-20-2024 End: 09-20-2024 Emergency department patient visit CARLOS STONER [facility] Start: 06-26-2024 End: 06-26-2024 ambulatory Rimma Kelly Facility:[facility] Start: 03-27-2024 End: 03-27-2024 ambulatory Rimma Kelly [facility] Start: 01-03-2024 End: 01-03-2024 ambulatory Rimma Kelly Facility[facility] Start: 09-05-2023 End: 09-05-2023 ambulatory Atif Childs Other [facility] Other Start: 09-05-2023 Office outpatient vi sit 15 minutes Atif Lillian [facility] Start: 05-23-2023 End: 05-23-2023 ambulatory Atif Childs Other [facility] Other Start: 05-23-2023 Office outpatient vi sit 15 minutes Atif Childs [facility] Start: 03-30-2023 End: 03-30-2023 ambulatory Atif Childs Other [facility] Other Start: 03-30-2023 Office outpatient vi sit 15 minutes Atif Lillian [facility] Start: 02-16-2023 End: 02-16-2023 ambulatory Atif Childs Other [facility] Other Start: 02-16-2023 Office outpatient vi sit 15 minutes Atif Lillian [facility] Start: 01-19-2023 End: 01-19-2023 ambulatory Ana Maria Glasgow Other [facility] Other Start: 01-19-2023 Office outpatient vi sit 15 minutes Ana Maria Glasgow [facility] Start: 12-29-[address] TERRI ROJO . Facil ity:[facility] Start: 12-22-2022 End: 12-22-2022 ambulatory Atif Childs Other [facility] Other Start: 12-22-2022 Office outpatient vi sit 15 minutes Atif Lillian [facility] Start: 12-22-2022 Telephone encounter [facility] Start: 12-08-2022 End: 12-08-2022 ambulatory Atif Childs Other [facility] Other Start: 12-08-2022 Postop follow up vis it related to original px Atif Lillian [facility] Start: 11-24-2022 End: 11-24-2022 ambulatory Atif Lillian Other [facility] Other Start: 11-24-2022 Office outpatient ne w 30 minutes Atif Lillian [facility] Start: 11-21-2022 End: 11-21-[address] TERRI ROJO . Facility: Start: 09-07-2022 End: 09-08-[address] TERRI ROJO . Facility: Start: 01-13-2022 End: 01-14-[address] TERRI ROJO . Facility: Start: 01-08-2022 End: 01-09-[address] TERRI ROJO . Facility: Procedures Date Procedure Procedure Detail Performing Clinician Start: 10-25-2024 End: 10-25-2024 Computerized ophthalmic imaging retina Nancy Corrales MD Work Phone: Start: 10-25-2024 Diabetic retinal eye exam Nancy Corrales MD Work Phone: Start: 03-20-2020 Cystoscopy and retro grade pyelography Rimma Kelly Comment on above: right Abdominal hysterectomy Darrell Kelly Appendectomy Rimma Kelly Colonoscopy Rimma Kelly Comment on above: 2009 normal Gallbladder structur e (body structure) Rimma Kelly H/O: tubal ligation Rimma reyes Partial resection of colon S dione Kelly Repair of hip Rimma Kelly Comment on above: left Tonsillectomy and adenoidectomy Rimma Kelly Total knee replacement Darrell Kelly Comment on above: right left Plan of Treatment Date Care Activity Detail Author Start: 10-26-2025 Tobacco Screening Tobacco Screening [facility] Start: 10-25-2025 Glaucoma screening Diabetic Ophthalmology Exam [facility] Start: 04-10-2025 End: 04-10-2025 Patient encounter procedure 04/10/2025 2:30 PM EDT [facility] [address] [place] [id number] Nancy Corrales MD [address] [place] [address] [facility] Start: 05-27-2024 COVID-19 Vaccine ( season) COVID-19 Vaccine ( season) [facility] Start: 05-27-2024 Influenza vaccination Influenza Vaccine [facility] Start: 12-18-2015 Fall Risk Screening Fall Risk Screening [facility] Start: 2000 Administration of varicella zoster vaccine Zoster (Shingles) Vaccine (1 of 2) [facility] Start: 1969 DTaP,Tdap and Td Vaccines (1 - Tdap) DTaP,Tdap and Td Vaccines (1 - Tdap) [facility] Start: 1968 Adult BMI Screening Adult BMI Screening [facility] Start: 1968 Diabetic foot examination Diabetic Foot Exam [facility] Start: 1962 Depression Screening Depression Screening [facility] Start: 1962 Tobacco Screening Tobacco Screening [facility] Immunizations Immunization Date Immunization Notes Care Provider Fa cility 09-04-2022 SARS-CoV-2 (COVID-19 ) [id number] Rimma Kelly [facility] 09-03-2022 influenza virus vaccine, unspecified formulation Rimma Kelly [facility] 02-02-2022 SARS-CoV-2 mRNA (bgtkygzacll-obqt-urzs ose) vaccine Rimma Kelly [facility] 08-26-2021 influenza virus vaccine, unspecified formulation Rimma Kelly [facility] 07-11-2021 SARS-CoV-2 (COVID-19 ) mRNA BNT-162b2 vax Rimma Kelly [facility] 12-03-2020 SARS-CoV-2 (COVID-19 ) mRNA BNT-162b2 vax Rimma Kelly [facility] Comment on above: Result Comment: 2022: [id number] 11-11-2020 SARS-CoV-2 (COVID-19 ) mRNA BNT-162b2 vax Rimma Kelly [facility] Comment on above: Result Comment: 2022: [id number] NEGATED: Highlighted row has not occurred!06-26-2024 influenza virus vaccine, unspecified formulation Rimma Kelly [facility] Payers Date Payer Category Payer Managed Care Other (unspecified) [facility] [id number] 2015 Medicare MEDICARE [id number] 1959 Medicare [id number] 1959 Unknown [id number] [id number] 1950 Unknown [id number] 2.16.840.1.651485.3.579.2. 593 1950 Unknown [id number] 2.16.840.1.672082.3.579.2. 593 1950 Unknown [id number] 2.16.840.1.231648.3.579.2. 593 1950 Unknown [id number] 2.16.840.1.107075.3.579.2. 593 1950 Unknown [id number] 2.16.840.1.671907.3.579.2. 593 1950 Unknown [id number] 2.16.840.1.265336.3.579.2. 727 1950 Unknown [id number] 2.16.840.1.852040.3.579.2. 727 1950 Unknown [id number] 2.16.840.1.139916.3.579.2. 727 1950 Unknown [id number] 2.16.840.1.772206.3.579.2. 727 1950 Unknown [id number] 2.16.840.1.743934.3.579.2. 727 1950 Unknown [id number] 2.16.840.1.644026.3.579.2. 727 1950 Unknown [id number] 2.16.840.1.761934.3.579.2. 727 1950 Unknown [id number] 2.16.840.1.331633.3.579.2. 727 1950 Unknown [id number] 2.16.840.1.875848.3.579.2. 902 1950 Unknown [id number] 2.16.840.1.140588.3.579.2. 1286 1950 Unknown [id number] 2.16.840.1.129091.3.579.2. 1286 1950 Unknown [id number] 2.16.840.1.826175.3.579.2. 1286 Social History Date Type Detail Facility Unknown if ever smoked [facility] Other Start: 11-06-2020 End: 12-08-2020 Sex Assigned At [facility] Start: 07-16-2020 End: 06-26-2024 Tobacco smoking status Never smoked tobacco (finding) [facility] Comment on above: denies use. Tobacco smoking status Never [facility] Comment on above: denies use. Start: 07-16-2020 Tobacco use and exposure Smokeless tobacco non-user [facility] Start: 12-08-2020 End: 10-26-2024 Alcoholic beverage intake Ex-drinker (finding) [facility] Start: 11-06-2020 End: 12-08-2020 History of Social function [facility] Start: 1950 Sex assigned at Not on file P [facility] Start: 05-01-2015 Sex Female (finding) [facility] Medical Equipment Procedure Code Equipment Code Equipment Origin al Text Equipment Identifier Dates [facility] Prescription, See Instructions, 100 strip(s), 3, True metrix test strips Test once a day Dx E 11.9, [facility], Supply, 167.6, cm, 02/02/23 13:51:00 EDT, Height/Length Dosing, 111.4, kg, 02/02/23 13:51:00 EDT, Weight Dosing Start: 02-15-2023 [facility] Prescription, See Instructions, 100 lancet(s), 3, Ultra thin unilet lancets use to test blood sugars once a day Dx E11.9, [facility], Supply, 167.6, cm, 02/02/23 13:51:00 EDT, Height/Length Dosing, 111.4, kg, 02/02/23 13:51:00 EDT, Weight Dosing Start: 02-15-2023 TEST STRIPS AND LANCETS, 1, SubCutaneous, Daily, 100 EA, 3, [facility], Supply, 167.6, cm, 02/02/23 13:51:00 EDT, Height/Length Dosing, 111.4, kg, 02/02/23 13:51:00 EDT, Weight Dosing Start: 02-15-2023 Clinical Notes 02-24-2019 to 10-26-2024 Nancy Corrales MD - 10/25/2024 2:20 PM EST Note Date & Type Note Facility 10-26-2024 Note Right Eye Quality was good. Progression has no prior data. Findings include abnormal foveal contour, epiretinal membrane, foveal thickening. Plan: observe & monitor, reviewed testing with the patient. Left Eye Quality was good. Progression has no prior data. Findings include normal foveal contour. Plan: observe & monitor, reviewed testing with the patient. MANUALLY TRANSCRIBED RESULTS 10-26-2024 Note Right Eye Quality was good. Progression has no prior data. Findings include abnormal foveal contour, epiretinal membrane, foveal thickening. Plan: observe & monitor, reviewed testing with the patient. Left Eye Quality was good. Progression has no prior data. Findings include normal foveal contour. Plan: observe & monitor, reviewed testing with the patient. MANUALLY TRANSCRIBED RESULTS 10-26-2024 Note Right Eye Progression has no prior data. Disc findings include normal observations. Macula findings include epiretinal membrane. Vessel findings include normal observations. Periphery findings include normal observations. Follow up actions include observe and monitor, reviewed testing with the patient. Left Eye Progression has no prior data. Disc findings include normal observations. Macula findings include normal observations. Vessel findings include normal observations. Periphery findings include normal observations. Follow up actions include observe and monitor, reviewed testing with the patient. MANUALLY TRANSCRIBED RESULTS 10-26-2024 Note Right Eye Progression has no prior data. Disc findings include normal observations. Macula findings include epiretinal membrane. Vessel findings include normal observations. Periphery findings include normal observations. Follow up actions include observe and monitor, reviewed testing with the patient. Left Eye Progression has no prior data. Disc findings include normal observations. Macula findings include normal observations. Vessel findings include normal observations. Periphery findings include normal observations. Follow up actions include observe and monitor, reviewed testing with the patient. MANUALLY TRANSCRIBED RESULTS 10-25-2024 History of Present illness Narrative Daksha Corley had concerns including Diabetic Eye Exam. HPI Diabetic Eye Exam Vision: is stable Comments DEVELOPMENT INTERN/ME Patient referred for macular evaluation. Patient states she hasn't noticed any vision issues. Denies flashes and floaters. She does not use any eye drops. Patient is a Type 2 diabetic. She did not check her blood sugar today. Last A1c under 6 per pt. Last edited by Rosemarie Nowak on 10/25/2024 2:09 PM. ROS Positive for: Endocrine Last edited by Rosemarie Nowak on 10/25/2024 2:09 PM. No current outpatient medications on file. (Ophthalmic Drugs) No current facility-administered medications for this visit. (Ophthalmic Drugs) Current Outpatient Medications (Other) Medication Sig ascorbic acid (VITAMIN C ORAL) Take by mouth. cyanocobalamin, vitamin B-12, (VITAMIN B12 ORAL) Take by mouth. doxylamine (SLEEP AID, DOXYLAMINE,) 25 mg tablet Take 1 tablet (25 mg total) by mouth nightly as needed for sleep. lisinopril-hydroCHLOROthiazide (PRINZIDE,ZESTORETIC) 20-12.5 mg per tablet Take 1 tablet by mouth in the morning. meloxicam (MOBIC) 15 mg tablet Take 1 tablet (15 mg total) by mouth in the morning. metFORMIN (GLUCOPHAGE) 500 mg tablet Take 1 tablet (500 mg total) by mouth in the morning and 1 tablet (500 mg total) before bedtime. multivit with calcium,iron,min (MULTIPLE VITAMIN, WOMENS ORAL) Take by mouth. oxybutynin XL (DITROPAN-XL) 5 mg 24 hr tablet Take 1 tablet (5 mg total) by mouth in the morning. oxyCODONE-acetaminophen (PERCOCET) 5-325 mg per tablet Take 1 tablet by mouth every 4 (four) hours as needed for pain. pantoprazole (PROTONIX) 40 mg EC tablet Take 1 tablet (40 mg total) by mouth in the morning and 1 tablet (40 mg total) before bedtime. No current facility-administered medications for this visit. (Other) Social History Socioeconomic History Marital status: Spouse name: Not on file Number of children: Not on file Years of education: Not on file Highest education level: Not on file Occupational History Not on file Tobacco Use Smoking status: Never Smokeless tobacco: Never Substance and Sexual Activity Alcohol use: Not Currently Drug use: Not Currently Sexual activity: Defer Other Topics Concern Not on file Social History Narrative Not on file Social Drivers of Health Financial Resource Strain: Not on file Food Insecurity: Not on file Transportation Needs: Not on file Physical Activity: Not on file Stress: Not on file Social Connections: Not on file Interpersonal Safety: Not on file Housing Instability: Not on file Family History Problem Relation Age of Onset Alzheimer's disease Mother Alzheimer's disease Father Ms. Corley has a past medical history of Diabetes mellitus ([facility]) and Hypertension. She has a past surgical history that includes Tonsillectomy; Appendectomy; Tubal ligation; Hip surgery (Left, 2018); Knee surgery (Bilateral, 2009); Hysterectomy; Colon surgery (1981); and Cholecystectomy (07/17/2020). Base Eye Exam Visual Acuity (Snellen - Linear) Right Left Dist sc 20/40 20/30 -1 Dist ph sc NI Tonometry (Tonopen, 2:15 PM) Right Left Pressure 18 17 Pupils Pupils Right PERRL Left PERRL Visual Macdonald (Counting fingers) Right Left Full Full Extraocular Movement Right Left Full Full Neuro/Psych Oriented x3: Yes Mood/Affect: Normal Dilation Both eyes: 1.0% Tropicamide, 2.5% Phenylephrine Hydrochloride @ 2:15 PM Slit Lamp and Fundus Exam Slit Lamp Exam Right Left Lids/Lashes Normal Normal Conjunctiva/Sclera White and quiet White and quiet Cornea Clear Clear Anterior Chamber Deep and quiet Deep and quiet Iris Round and reactive Round and reactive Lens 1+ Nuclear sclerosis 1+ Nuclear sclerosis Fundus Exam Right Left Vitreous Normal Normal Disc Normal Normal C/D Ratio 0.2 0.2 Macula Epiretinal membrane Normal Vessels Normal Normal Periphery Normal Normal Diagnosis 1. Right epiretinal membrane 2. Nuclear sclerotic cataract of both eyes 3. Type 2 diabetes mellitus without complication, without long-term current use of insulin ([facility]) ASSESSMENT/PLAN 1. Right epiretinal membrane (Primary) RIGHT EYE -Criteria for surgical intervention discussed. Patient is asymptomatic without complaints. -Continue observation -Monitor amsler grid -Testing done today reviewed with patient. - [facility] [place] - Fundus Photos - OU - Both Eyes; Future - OCT, Retina - OU - Both Eyes; Future 2. Nuclear sclerotic cataract of both eyes BOTH EYES -Nuclear sclerotic cataract noted on examination. -Continue observation. 3. Type 2 diabetes mellitus without complication, without long-term current use of insulin ([facility]) BOTH EYES- no ocular manifestation. -Last A1c: 6 -Stressed importance of good blood sugar control. -Continue follow up with PCP. Patient Education: Questions were encouraged to stated satisfaction from the patient. Discussed with patient that failure to follow up as recommended (appointment time, onset of new ocular symptoms) can lead to permanent loss of vision and/or blindness. Patient understands and agrees. Return Visit: 6mo. +OCT DFE OU Physician: Nancy Corrales MD Scribe: ЕЛЕНА Shane Scribe Statement: Scribed for and in the presence of Nancy Corrales MD by ЕЛЕНА Shane I, Nancy Corrales MD personally performed the services described in the documentation, as scribed by Leelee CHRISTIANSEN in my presence, and it is both accurate and complete. documented in this encounter [facility] 06-26-2024 Note Patient Education Nutrition BMI for [...] for Disease Control and Prevention: cdc.gov ? [place] Heart Association: heart.org ? National Heart, Lung, and Blood [place]: nhlbi.nih.gov This information is not intended to replace advice given to you by your health care provider. Make sure you discuss any questions you have with your health care provider. Document Revised: 06/02/2023 Document Reviewed: 05/26/2023 [employer] Patient Education ? 2023 [employer]. [facility] 03-27-2024 Note Patient Education Nutrition BMI [...] numbers. This can be done either in [place] ([place] or metric measurements. Note that charts and online BMI calculators are available to help you find your BMI quickly and easily without having to do these calculations yourself. To calculate your BMI in [place] ([place] measurements: 1. Measure your weight in [...] for Disease Control and Prevention: www.cdc.gov ? [place] Heart Association: www.heart.org ? National Heart, Lung, and Blood [place]: www.nhlbi.nih.gov Summary ? Body mass index (BMI) is a number that is calculated from a person's weight and height. ? BMI may help estimate how much of a person's weight is composed of fat. BMI can help identify those who may be at higher risk for certain medical problems. ? BMI can be measured using [place]ian measurements or metric measurements. ? BMI charts are used to identify whether you are underweight, normal weight, overweight, or obese. This information is not intended to replace advice given to you by your health care provider. Make sure you discuss any questions you have with your health care provider. Document Revised: 06/04/2020 Document Reviewed: 04/11/2020 [employer] Patient Education ? 2022 [employer]. [facility] 09-05-2023 Evaluation note Encounter Date Diagnosis [...] for refills if the medication is helping. [employer] Other 08-28-2023 Evaluation note* Encounter Date Diagnosis [...] - M76.61) Apr, Neuropathy (ICD-10 - G62.9) [employer] Other 07-05-2023 Evaluation note* Encounter Date Diagnosis [...] - M76.61) Mar, Neuropathy (ICD-10 - G62.9) [employer] Other 05-24-2023 Evaluation note* Encounter Date Diagnosis [...] as documented in the electronic medical record. [employer] Other 04-26-2023 Evaluation note* Encounter Date Diagnosis [...] in the office today and providing supervision. [employer] Other 03-29-2023 Evaluation note* Encounter Date Diagnosis [...] exercise. We discussed starting to peel one parquetry floor layer of the heel lift each week. Continue with use of boot at this time. Continue with use of walker as needed. A prescription for physical therapy was provided today. [facility] Other 03-15-2023 Evaluation note* Encounter Date Diagnosis [...] understanding and is agreeable to treatment plan. [employer] Other 03-01-2023 Evaluation note* Encounter Date Diagnosis [...] in office today. Prior medical notes from [facility] and history have been reviewed. At her [...] as documented in the electronic medical record. [employer] Other 06-01-2019 History general Narrative - Reported* Type Description Date Medical History Borderline Type 2 Diabetes Medical History Hypertension Medical History kidney Stones 02/2019 Surgical History Partial Bowel Removal 37 years ago Surgical History Tonsil & Adnoids Surgical History Appendectomy 1971 Surgical History Hysterectomy with Bladder Suspe nsion 1988 Surgical History Tubal Ligation Surgical History Bilateral Knee Replacement 2009 Surgical History [facility] Hospitalization History Pneumonia 09/2017 [employer] Other Evaluation + Plan note Future Appointments Appointment Date:10/02/2024 11:30:00 AM Scheduled Provider:Rimma Kelly MD Location:[facility] Appointment Type: Open Appointment Date:06/27/2025 02:30:00 PM Scheduled Provider: Location:[facility] Appointment Type: Medicare Wellness Subsequent Future Scheduled Tests Radiology* US Aorta 01/03/24 [facility] Evaluation noteNo [email or web address] [employer] Other Evaluation note* Diagnosis Right epiretinal membrane- Primary Macular puckering of retina Nuclear sclerotic cataract of both eyes Senile nuclear sclerosis Type 2 diabetes mellitus without complication, without long-term current use of insulin ([facility]) Other specified retinal disorders Other specified retinal disorders documented in this encounter [facility] Diagnosis Other specified retinal disorders [facility] Narrative No data available for this section [facility] Hospital Discharge instructions No data available for this section [facility] Instructions* Attachments The following attachments cannot be sent through Care Everywhere. * Cataracts ([place]ian) [facility] SystemInstructionsNot on file documented in [facility] SystemProgress note No data available for this section [facility] Summary Purpose Family History No Family History Records FoundNo Family History Records Found No data available for this section No Family History Records FoundNo Family History [...] section and content) DATE CREATED AUTHOR 03/20/2022 [facility] DATE CREATED AUTHOR AUTHOR'S ORGANIZ ATION 12/31/2022 [facility] DATE CREATED AUTHOR AUTHOR'S ORGANIZ ATION 10/05/2024 [facility] DATE CREATED AUTHOR AUTHOR'S ORGANIZ ATION 10/06/2024 [facility] DATE CREATED AUTHOR AUTHOR'S ORGANIZ ATION 10/16/2024 [facility] DATE CREATED AUTHOR AUTHOR'S ORGANIZ ATION 10/27/2024 [facility] REASON FOR VISIT (unrecogniz ed section and content) Reason Comments Diabetic Eye Exam Specialty Diagnoses / Procedures Referred By Traci t Referred To Contact Ophthalmology Diagnoses Normal retina on examination of eye Carlos Lobato, OD 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 [facility]. provides no warranty or guarantee of the accuracy or completeness of information in this document.
== END 2024-11-21 09:57 | disposition home or self-care (01) ==
LOC: RAD 09:56
PROVIDERS: PCP Family Medicine; Visit Provider Podiatrist Foot & Ankle Surgery
DX: M79.672 Pain in left foot (principal); M19.072 Primary osteoarthritis, left ankle and foot
CPT/HCPCS: 73630

== ENCOUNTER 2025-07-05 12:29 | Outpatient (OUT) | payer MEDICARE, SELFPAY ==
--- OUTSIDE RECORDS SUMMARY | 2025-07-05 12:36 | XMS_ITS | CCD ---
Author Organization [facility] Team Providers Care Beauty Sales Advisor Name Role Phone Atif Childs Unavailable ROJO [...] GORMAN Consulting Unavailable TARAS WILEY Consulting Unavailable ROJO ., DR TERRI Lawson [...] Unavailable LUBNA, DR PLACIDO Mckeon Consulting Unavailable Ana Maria Glasgow Unavailable Rimma Kelly Primary Care Physician [phone] Rimma Kelly Attending Unavailable Rimma Kelly Attending Unavailable Rimma Kelly Attending Unavailable Rimma Kelly Attending Unavailable Rimma Kelly Attending Unavailable Rimma Kelly Admitting Unavailable Rimma Kelly Attending Unavailable Rimma Kelly Attending Unavailable Rimma Kelly Attending Unavailable CARLOS RIVERS Attending Unavailable NO, PHYSICIAN Primary Care Unavailable Rimma Kelly MD Primary Care Provider NANCY CORRALES Attending Unavailable TERRI ROJO Referring Unavailable RIMMA KELLY Primary Care Unavailable NANCY CORRALES Referring Unavailable RIMMA KELLY Primary Care Unavailable Rimma Kelly MD Primary Care Provider SULMA WESTON Attending Unavailable SULMA WESTON Attending Unavailable Rimma Kelly MD Primary Care Provider NANCY CORRALES Attending Unavailable RIMMA KELLY Referring Unavailable RIMMA KELLY Primary Care Unavailable NANCY CORRALES Referring Unavailable RIMMA KELLY Primary Care Unavailable Rimma Kelly. Admitting Unavailable Rimma Kelly. Attending Unavailable Tigist, RAG SHREDDER Mary L Attending Unavailable Tigist, RAG SHREDDER Mary L Attending Unavailable Tigist, RAG SHREDDER Mary L Admitting Unavailable Tigist, RAG SHREDDER Mary L Attending Unavailable Tigist, Mary L Admitting Unavailable Tigist, Mary L Attending Unavailable Tigist, Mary L Attending Unavailable Allergies Allergy Classification Reported Allergen(s) Allergy Type Date of Onset Reaction(s) Facility (15 sources) Nalbuphine; Translations: [Nubain] Drug Allergy Clouded consciousness (finding) [facility] (9 sources) Sulfonamides (Antibiotic) Propensity to adverse reactions Unknown [employer] Other (1 source) bee venom Drug allergy (disorder) [facility] (4 sources) HYDROmorphone; Translations: [Dilaudid] Drug Allergy 07-16-20 [facility] (1 source) Sulfonamides (Antibiotic) Drug allergy (disorder) [facility] (8 sources) celecoxib; Translations: [celecoxib] Drug Allergy 04-10-20 [facility] (8 sources) Clarithromycin; Translations: [clarithromycin] Drug Allergy 04-10-20 [facility] (16 sources) HYDROmorphone; Translations: [hydromorphone] Drug Allergy 12-09-19 21 Clouded consciousness (finding), Dizziness [facility] (19 sources) Nalbuphine; Translations: [nalbuphine] Drug Allergy 07-16-20 20 Unknown (qualifier value), Clouded consciousness (finding) [facility] (8 sources) rofecoxib; Translations: [rofecoxib] Drug Allergy 04-10-20 [facility] (5 sources) sulfabenzamide / Sulfacetamide / sulfathiazole; Translations: [triple sulfa topical] Drug Allergy Unknown (qualifier value) [facility]elin (8 sources) Sulfonamides (Antibiotic); Translations: [SULFA (SULFONAMIDE ANTIBIOTICS)] Propensity to adverse reactions to drug (disorder) 07-16-20 [facility] (6 sources) Sulfonamides (Antibiotic) Drug Intolerance 07-16-20 [facility] Medications Current Medications Medication Drug Class(es) Dates Sig (Normalized) Sig (Original) 0.25 MG, 0.5 MG Dose 3 ML semaglutide 0.68 MG/ML Pen Injector [Ozempic] (1 source) Start: 03-27-2024 Ozempic 2 mg/3 mL (0.25 mg or 0.5 mg dose) subcutaneous solution 0.25 mg, SubCutaneous, qWeek, # 3 mL, Refills(s) 0, Pharmacy: [facility], 165, cm, 03/27/24 10:13:00 EDT, Height/Length Dosing, 107.9, kg, 03/27/24 10:13:00 EDT, Weight Dosing Start Date: 03/27/24 Status: Ordered allopurinol 100 mg oral tablet (9 sources) Xanthine Oxidase Inhibitor take 1 tablet by mouth every twenty-four hours Allopurinol 100 MG 1 tablet Orally Once a day Active ascorbic acid 1000 mg oral tablet (6 sources) Vitamin C Start: 02-02-2023 take 1 tablet by mouth once daily ascorbic acid 1000 mg oral tablet 1,000 mg = 1 tab(s), Oral, Daily, # 90 tab(s), Refills(s) 3, Pharmacy: [facility], 167.6, cm, 02/02/23 13:51:00 EDT, Height/Length Dosing, 111.4, kg, 02/02/23 13:51:00 EDT, Weight Dosing Start Date: 02/02/23 Status: Ordered ascorbic acid (V ITAMIN C ORAL) Take by mouth. Active B12 Fast Dissolve 5000 MCG (8 sources) B12 Fast Dissolv e 5000 MCG as directed Orally Active Blood pressure cuff-wrist (2 sources) Start: 12-22-2022 Blood pressure cuff-wrist Blood pressure cuff-wrist, See Instructions, 1 EA, 0, As Directed-Check blood pressure 1-2 hours after taking BP medication., [facility], Supply Start Date: 12/22/22 Status: Ordered Quantity: 1.0 Unit: EA Repeat number: 1 Start: 12-22-2022 Blood pressure cuff-wrist Blood pressure cuff-wrist, See Instructions, 1 EA, 0, As Directed-Check blood pressure 1-2 hours after taking BP medication., [facility], Supply Start Date: 12/22/22 Status: Ordered celecoxib 100 mg oral capsule (3 sources) Nonsteroidal Anti-inflammatory Drug Start: 03-30-2023 take 1 capsule by mouth every twelve hours CeleBREX 100 MG 1 capsule with food Orally bid for 30 days Mar, Active CPAP (2 sources) Start: 01-04-2024 CPAP CPAP, See Instructions, 1 EA, 0, c-pap machine w/ humidifier and rx must state motor life exceeded repair or replacement. Pressure setting , Supply Start Date: 01/04/24 Status: Ordered Quantity: 1.0 Unit: EA Repeat number: 1 Indications: Obstructive sleep apnea (adult) (pediatric); Start: 01-04-2024 CPAP CPAP, See Instructions, 1 EA, 0, c-pap machine w/ humidifier and rx must state motor life exceeded repair or replacement. Pressure setting 11, Supply Start Date: 01/04/24 Status: Ordered cyanocobalamin, vitamin B-12, (VITAMIN B12 ORAL) (5 sources) cyanocobalamin, vitamin B-12, (VITAMIN B12 ORAL) Take by mouth. Active cyclobenzaprine hydrochloride 5 mg oral tablet (9 sources) Muscle Relaxant Start: 023 take 0.5-1 tablets by mouth every eight hours Cyclobenzaprine HCl 5 MG 1/2 to 1 tab Orally Every 8 hours for 14 days Nov, Active diclofenac sodium 0.01 mg/mg topical gel (4 sources) Nonsteroidal Anti-inflammatory Drug Start: 023 Diclofenac Sodium 1 % apply 1-2 grams to affected area Externally Four times a day for 30 days January, Active doxylamine succinate 25 mg oral tablet (11 sources) take 1 tablet by mouth once daily as needed for sleep doxylamine (SLEEP AID, DOXYLAMINE,) 25 mg tablet Take 1 tablet (25 mg total) by mouth nightly as needed for sleep. Active equate sleep aid (2 sources) Start: take 1 tablet by mouth once daily equate sleep aid equate sleep aid, 1 tab, Oral, Daily Insomnia Start Date: 03/05/20 Status: Ordered Repeat number: 1 Start: 03-05-2020 take 1 tablet by mouth once da juliann equate sleep aid equate sleep aid, 1 tab, Oral, Daily Insomnia Start Date: 03/05/20 Status: Ordered gabapentin 300 mg oral capsule (9 sources) Anti-epileptic Agent Start: 10-03-2024 gabapenti n 300 mg Cap See Instructions, TAKE 2 CAPSULES BY MOUTH TWICE DAILY, 2 (TWO) at night 1 in IN THE MORNING and one after lunch, # 360 EA, Refills(s) 0, Pharmacy: [facility], 165, cm, 10/02/24 11:39:00 EST, Height/Length Dosing, 97, kg, 10/02/24 11:39:00 EST, Weight Dosing Start Date: 10/03/24 Status: Ordered Quantity: 360.0 Unit: EA Repeat number: 1 Start: 07-24-2024 take 1 capsule by [facility] daily after lunch gabapentin 300 mg Cap 600 mg = 2 cap(s), Oral, BID, 2 at night 1 in the am and one after lunch, # 360 cap(s), Refills(s) 0, Pharmacy: [facility], 165, cm, 06/26/24 15:02:00 EDT, Height/Length Dosing, 103.7, kg, 06/26/24 15:02:00 EDT, Weight Dosing Start Date: 07/24/24 Status: Ordered Start: 09-05-2023 take 1 capsule by [facility] every eight hours Gabapentin 100 MG 1 capsule Orally three times a day for 30 days Aug, Active glipiZIDE 5 mg oral tablet (4 sources) Sulfonylurea Start: 10-04-2023 End: 01-30-2025 take 1 tablet by mouth twice daily glipiZIDE 5 mg Tab 5 mg = 1 tab(s), Oral, BID, # 180 tab(s), Refills(s) 3, Pharmacy: [facility], 165, cm, 10/04/23 11:01:00 EST, Height/Length Dosing, 107, kg, 10/04/23 11:01:00 EST, Weight Dosing Start Date: 10/04/23 Status: Ordered hydroCHLOROthiazide 12.5 mg / lisinopril 20 mg oral tablet (20 sources) Thiazide Diuretic, Angiotensin Converting Enzyme Inhibitor Start: 10-02-2024 hydrochlorothiazid e-lisinopril 12.5 mg-20 mg Tab 1 tab(s), Oral, Daily, 180 tab(s), Refill(s) 3, [facility], 165, cm, 10/02/24 11:39:00 EST, Height/Length Dosing, 97, kg, 10/02/24 11:39:00 EST, Weight Dosing Start Date: 10/02/24 Status: Ordered Quantity: 180.0 Unit: tab(s) Repeat number: 4 Start: 10-04-2023 hydrochlorothi azide-lisinopril 12.5 mg-20 mg Tab 1 tab(s), Oral, BID, 180 tab(s), Refill(s) 3, [facility], 165, cm, 10/04/23 11:01:00 EST, Height/Length Dosing, 107, kg, 10/04/23 11:01:00 EST, Weight Dosing Start Date: 10/04/23 Status: Ordered take 1 tablet by [facility] once in the morning lisinopril-hydroCHLOROthiazide (PRINZIDE,ZESTORETIC) 20-12.5 mg per tablet Take 1 tablet by mouth in the morning. Active take 1 tablet by [facility] in the morning lisinopril-hydroCHLOROthiazide 20-12.5 M G tablet Take 1 tablet by mouth in [...] hydrochloride 500 mg extended release oral tablet (20 sources) Biguanide Start: 10-02-2024 take 2 tablets by mouth twice daily Glucophage XR 500 mg Tab-ER 1,000 mg = 2 tab(s), Oral, BID, # 360 tab(s), Refills(s) 1, Pharmacy: [facility], 165, cm, 10/02/24 11:39:00 EST, Height/Length Dosing, 97, kg, 10/02/24 11:39:00 EST, Weight Dosing Start Date: 10/02/24 Status: Ordered Quantity: 360.0 Unit: tab(s) Repeat number: 2 Start: 07-24-2024 take 2 tablets by [facility] twice daily Glucophage XR 500 mg Tab-ER 1,000 mg = 2 tab(s), Oral, BID, # 360 tab(s), Refills(s) 1, Pharmacy: [facility], 165, cm, 06/26/24 15:02:00 EDT, Height/Length Dosing, 103.7, kg, 06/26/24 15:02:00 EDT, Weight Dosing Start Date: 07/24/24 Status: Ordered take 2 tablets by [facility] once daily at breakfast metFORMIN (GLUCOPHAGE) 500 mg tablet Take 2 tablets (1,000 mg total) by mouth daily with breakfast. Active take 1 tablet by braydon th at mealtime, then take 1 tablet by mouth every twenty-four hours metFORMIN, OSM, (Fortamet) 500 MG 24 hr tablet Take 500 mg by mouth in the morning. Take with meals. Active take 1 tablet by braydon th in the morning, then take 1 tablet by mouth at bedtime metFORMIN (GLUCOPHAGE) 500 mg tablet Take 1 tablet (500 mg total) by mouth in the morning and 1 tablet (500 mg total) before bedtime. Active Multi For Her - (9 sources) Multi For Her - as directed Orally Active multivit with calcium,iron,min (MULTIPLE VITAMIN, WOMENS ORAL) (5 sources) multivit with calcium,iron,min (MULTIPLE VITAMIN, WOMENS ORAL) Take by mouth. Active 24 hr oxybutynin chloride 5 mg extended release oral tablet (20 sources) Cholinergic Muscarinic Antagonist Start: 10-02-2024 take 1 tablet by mouth once daily oxybutynin 5 mg ER Tab See Instructions, TAKE 1 TABLET BY MOUTH DAILY, # 90 tab(s), Refills(s) 3, Pharmacy: [facility], 165, cm, 10/02/24 11:39:00 EST, Height/Length Dosing, 97, kg, 10/02/24 11:39:00 EST, Weight Dosing Start Date: 10/02/24 Status: Ordered Quantity: 90.0 Unit: tab(s) Repeat number: 4 Start: 09-21-2024 take 1 tablet by [facility] once daily oxybutynin 5 mg ER Tab See Instructions, TAKE 1 TABLET BY MOUTH DAILY, # 90 tab(s), Refills(s) 3, Pharmacy: [facility], 165, cm, 06/26/24 15:02:00 EDT, Height/Length [...] pantoprazole 40 mg delayed release oral tablet (20 sources) Proton Pump Inhibitor Start: 11-24-2020 take [...] a day Active Probiotic Digestive Aid Gummies (2 sources) Start: 01-03-2024 Probiotic Dige stive Aid Gummies See Instructions, Refill(s) 0, take 2 orally daily Start Date: 01/03/24 Status: Ordered Repeat number: 1 Start: 01-03-2024 Probiotic Dige stive Aid Gummies See Instructions, Refill(s) 0, take 2 orally daily Start Date: 01/03/24 Status: Ordered Psyllium (11 sources) Start: 01-03-2024 Metamucil See Instructions, Take 3 gummies orally daily, Refills(s) 0 Start Date: 01/03/24 Status: Ordered Repeat number: 1 Start: 01-03-2024 Metamucil See Instructions, Take 3 [...] times a day for 30 day(s) Not-Taking semaglutide (1 source) Start: 03-28-2025 semaglutide Re fills(s) 0 Start Date: 03/28/25 Status: Ordered Repeat number: 1 vitamin b12 0.1 mg oral tablet (2 sources) Vitamin B12 Start: 02-02-2023 take 1 tablet by mouth once daily cyanocobalamin 100 mcg oral tablet 100 mcg = 1 tab(s), Oral, Daily, # 90 tab(s), Refills(s) 3, Pharmacy: [facility], 167.6, cm, 02/02/23 13:51:00 EDT, Height/Length Dosing, 111.4, kg, 02/02/23 13:51:00 EDT, Weight Dosing Start Date: 02/02/23 Status: Ordered B12 Fast Dissolv e 5000 MCG as directed Orally Active Completed/Discontinued Medications Medication Drug Class(es) Dates Sig (Normalized) Sig (Original) acetaminophen 325 mg / oxyCODONE hydrochloride 5 mg oral tablet (14 sources) Opioid Agonist Start: 12-28-2018 take 1-2 [...] every 12 hrs for 10 day(s) Not-Taking Problems Active Problems Problem Classification Problem Date Documented Date Episodic/Chronic Abdominal pain (6 sources) Abdominal tenderness; Translations: [Flank pain] Onset: 09-20-20 24 02-02-2023 Episodic Calculus of urinary tract (2 sources) Kidney stone 03-05-2020 Episodic Cataract (4 sources) Nuclear sclerotic cataract; Translations: [Age-related nuclear cataract, bilateral] Onset: 10-25-19 25 10-25-2024 Chronic Diabetes mellitus with complications (5 sources) Type 2 diabetes mellitus with unspecified complications; Translations: [Type 2 diabetes mellitus in obese] Onset: 09-11-2010-03-2023 Chronic Comment on above: linked DM with perip heral neuropathy per OP CDI policy. Diabetes mellitus without complication (6 sources) Type 2 diabetes mellitus without complications; Translations: [Type 2 diabetes mellitus without complication] Onset: 11-22-19 23 10-25-2024 Chronic Disorders of lipid metabolism (1 source) Pure hypercholesterolemia, unspecified; Translations: [PURE HYPERCHOLESTEROLEMIA UNSPEC] Onset: 09-11-20 Chronic Diverticulosis and diverticulitis (2 sources) Diverticular disease 07-19-2023 Chronic E Codes: Natural/environment (1 source) Other and unspecified overexertion or strenuous movements or postures, initial encounter; Translations: [OTH AND UNS OVREXRT/STRN MVMT/POS INT] Onset: 11-22-19 Episodic Essential hypertension (5 sources) Essential (primary) hypertension; Translations: [Hypertensive disorder] Onset: 11-22-19 23 03-12-2020 Chronic Genitourinary symptoms and ill-defined conditions (4 sources) Post-micturition incontinence ; Translations: [Urge incontinence of urine] 07-13-2019 Chronic Genitourinary symptoms and ill-defined conditions (10 sources) Herman hematuria; Translations: [Incomplete emptying of bladder] 03-12-2020 Episodic Gout and other crystal arthropathies (2 sources) Gout 07-19-2023 Chronic Hepatitis (2 sources) Nonalcoholic steatohepatitis 07-19-2023 Chronic Menopausal disorders (1 source) Unspecified menopausal and perimenopausal disorder; Translations: [UNS MENOPAUSAL PERIMENOPAUSAL D/O] Onset: 01-14-20 Chronic Noninfectious gastroenteritis (2 sources) Chronic diarrhea 01-03-2024 Episodic Osteoarthritis (9 sources) Osteoarthritis of hip; Translations: [Unilateral primary osteoarthritis, left hip] Chronic Other aftercare (1 source) detention (current) use of oral hypoglycemic drugs; Translations: [WOOD MECHANIST USE ORAL HYPOGLYCEMIC DX] Onset: 11-22-19 Episodic Other aftercare (1 source) Other exterminator termite (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; Translations: [OTH WOOD MECHANIST CURRENT DRUG THERAPY] Onset: 11-22-19 Episodic Other [...] Episodic Other diseases of bladder and urethra (2 sources) Urethral stricture 07-13-2019 Episodic Other ear and sense organ disorders (2 sources) Sensorineural hearing loss, bilateral; Translations: [Sensorineural hearing loss, bilateral] 02-19-2025 Chronic Other ear and sense organ disorders (2 sources) Bilateral tinnitus; Translations: [Tinnitus, bilateral] 01-30-2025 Episodic Other ear and sense organ disorders (2 sources) Impacted cerumen of bilateral ears; Translations: [Impacted cerumen, bilateral] 01-30-2025 Episodic Other gastrointestinal disorders (1 source) Irritable [...] Polyneuropathy, unspecified Chronic Other nervous system disorders (2 sources) Peripheral nerve disease 10-04-2023 Chronic Other non-traumatic joint disorders (4 sources) Pain in left ankle and joints of left foot; Translations: [PAIN IN LEFT ANKLE] Onset: 11-21-19 Episodic Other nutritional; endocrine; and metabolic disorders (1 source) Metabolic syndrome; Translations: [METABOLIC SYNDROME] Onset: 11-22-19 Chronic Other nutritional; endocrine; and metabolic disorders (4 sources) Body mass index 30+ - obesity 06-26-2024 Chronic Other nutritional; endocrine; and metabolic disorders (2 sources) Morbid obesity 06-26-2024 Chronic Peripheral and visceral atherosclerosis (2 sources) Atherosclerosis of aorta 10-03-2023 Chronic Comment on above: added per 10/03/2023 query response. Residual codes; unclassified (1 source) Obstructive sleep apnea (adult) (pediatric); Translations: [OBSTRUCTIVE SLEEP APNEA] Onset: 11-22-19 Chronic Residual codes; unclassified (2 sources) Obstructive sleep apnea syndrome 07-19-2023 Chronic Residual codes; unclassified (1 source) Acquired absence of other specified parts of digestive tract; Translations: [ACQ ABSENCE OTH PART DIGESTV TRACT] Onset: 11-22-19 Episodic Residual codes; unclassified (2 sources) FH: Aortic aneurysm 01-03-2024 Episodic Retinal detachments; defects; vascular occlusion; and retinopathy (8 sources) Epiretinal membrane of right eye; Translations: [Puckering of macula, right eye] Onset: 10-25-19 25 10-25-2024 Chronic Rheumatoid arthritis and related disease (4 sources) Inflammatory polyarthropathy; Translations: [INFLAMMATORY POLYARTHROPATHY] Onset: 09-07-20 Chronic Spondylosis; intervertebral disc disorders; other back problems (2 sources) Backache 06-18-2020 Episodic Sprains and strains (12 sources) Strain of right Achilles tendon, initial encounter; Translations: [Strain of left Achilles tendon, subsequent encounter] Onset: 12-30-19 Episodic Unclassified (2 sources) Drug therapy finding 06-18-2020 Unclassified (2 sources) Finding of sensation of bladder 07-13-2019 Unclassified (2 sources) Patient encounter status 07-29-2023 Unclassified (1 source) Diabetic Eye Exam Onset: 10-25-19 Unclassified (1 source) Non-smoker 10-02-2024 Unclassified (1 source) Right epiretinal membrane Onset: 04-10-20 Past or Other Problems Problem Classification Problem [...] Results Test Name Value Interpretation Reference Range Nena woodard Family Medicine Office/Clini c Noteon 06-27-2025 Family Medicine Office/Clinic Note Family Medicine Office/Clinic Note HPI Staff Pt is here for a 3 month f/u Do you have any of the following symptoms? Foot Exam: 10/02/24 Eye Exam: 10/25/24 Hgb A1C %: 5.6 % (03/28/25 15:23:00) Hgb A1c POC: 7.6 % (06/26/24 14:46:00) Patient is here for follow up on hypertension. How often are you checking your blood pressure? no What are your average readings? _ Yearly BMP: _ Gabapentin she has weaned herself off for 2 weeks, this was making her dizzy and didn't think it helped much no refills needs History of Present Illness pt presents today for diabetes follow up Review of Systems PHQ Score Initial Depression Screen Score: 0 SCORE Physical Exam Vitals & Measurements T: 36.4 ???C(Temporal Artery) HR: 82(Peripheral) RR: 18 BP: 128/84 SpO2: 100% HT: 165.0 cm HT: 65 in WT: 85.7 kg WT: 188.936 lb BMI: 31.48 General: alert, no acute distress ENMT: oral mucosa moist, no pharyngeal erythema or exudate Cardiovascular: regular rate and rhythm, normal peripheral perfusion Respiratory: Lungs CTA, respirations non labored Extremities: no deformity, no trauma Neurological: oriented x 4, LOC appropriate for age, CN II-XII intact, motor strength equal & normal bilaterally, speech normal Assessment/Plan 1. Type 2 diabetes mellitus with peripheral neuropathy (E11.42: Type 2 diabetes mellitus with diabetic polyneuropathy) pt presents today for diabetes follow up. BS have been running 120's. will continue semaglutide 1.8 order faxed to [facility]. will take one metformin daily. will recheck HGBA1C in 3 months. 2. Right hip pain (M25.551: Pain in right hip) right hip pain worsening. xray ordered. pt would like referral to pain management for injections to help with pain. prefers [facility]. Ordered: MA Mamm Screen w/CAD if perf and 3D Cameron XR Hip 2-3 Views Right 3. Breast cancer screening by mammogram (Z12.31: Encounter for screening mammogram for malignant neoplasm of breast) mammogram order given Ordered: MA Mamm Screen w/CAD if perf and 3D Cameron 4. BMI 31.0-31.9,adult, (Z68.31: Body mass index [BMI] 31.0-31.9, adult)Body mass index [BMI] 31.0-31.9, adult BMI education given 5. Class 1 obesity due to excess calories with body mass index (BMI) of 31.0 to 31.9 in adult (E66.811: Obesity, class 1) see above Other obesity due to excess calories (E66.09: Other obesity due to excess calories) see above Orders: gabapentin, See Instructions, TAKE 2 CAPSULES BY MOUTH TWICE DAILY, 2 (TWO) at night 1 in IN THE MORNING and one after lunch, # 360 EA, Refills(s) 0, Pharmacy: [facility], 165, cm, 10/02/24 11:39:00 EST, Height/Length Dosing, 97, kg, 10/02/24 11:3... gabapentin, 300 mg = 1 cap(s), Oral, Bedtime, # 90 cap(s), Refills(s) 1, Pharmacy: [facility], 165, cm, 06/27/25 14:48:00 EDT, Height/Length Dosing, 85.7, kg, 06/27/25 14:48:00 EDT, Weight Dosing metformin, 1,000 mg = 2 tab(s), Oral, BID, # 360 tab(s), Refills(s) 1, Pharmacy: [facility], 165, cm, 10/02/24 11:39:00 EST, Height/Length Dosing, 97, kg, 10/02/24 11:39:00 EST, Weight Dosing Follow-up No qualifying data available Problem List/Past Medical History Ongoing Advanced care planning/counseling discussion Anticoagulated Aortic atherosclerosis Back pain BMI 35.0-35.9,adult BMI 38.0-38.9,adult Breast cancer screening by mammogram Chronic diarrhea Diabetic nephropathy Diverticular disease Family hx of aortic aneurysm Feeling of incomplete bladder emptying Frequency of urination Gout HTN (hypertension) Kidney stone Morbid obesity due to excess calories VOGEL (nonalcoholic steatohepatitis) Nonsmoker Obesity (BMI 30-39.9) ELY (obstructive sleep apnea) Other urethral stricture, female Peripheral neuropathy Post-void dribbling Right hip pain Type 2 diabetes mellitus with peripheral neuropathy Urge incontinence Urgency of urination Weak urine stream Historical Abdominal tenderness Flank pain Gross hematuria HTN - Hypertension Incomplete bladder emptying Type 2 diabetes mellitus with morbid obesity Procedure/Surgical History Cystoscopy and retrograde pyelography (03/20/2020), Abdominal hysterectomy, Appendectomy, Arthroplasty of the hip, Colonoscopy, Gall bladder, H/O: tubal ligation, Partial resection of colon, Tonsillectomy and adenoidectomy, Total knee arthroplasty, Total knee arthroplasty. Medications Blood pressure cuff-wrist, See Instructions CPAP, See Instructions equate sleep aid, 1 tab, Oral, Daily, PRN gabapentin 300 mg Cap, 300 mg= 1 cap(s), Oral, Bedtime, 1 refills hydrochlorothiazide-l isinopril 12.5 mg-20 mg Tab, 1 tab(s), Oral, Daily, 3 refills meloxicam 15 mg Tab, 15 mg= 1 tab(s), Oral, Daily, 3 refills Metamucil, See Instructions metformin 500 mg ER Tab, 500 mg= 1 tab(s), Oral, BID Misc DME Prescription, See Instructions, 3 refills Misc DME Prescription, See Instructions, 3 refills oxybutynin 5 mg ER T (more content not included)... Normal [facility] Comment on above: Result Comment: Elec tronically Signed By: Mary Trotter\.br\Date and Time Signed: 06/27/25 16:04 EDT No Panel Informationon 04-13 [employer] Reminderson 04-02-2025 Reminders Reminders From: Mary Trotter To: [facility] - Clinical; Sent: 04/01/2025 17:40:07 EDT Show up: 04/01/2025 17:40:00 EDT Subject: Ambulatory Reminder Due Date/Time: 04/02/2025 17:39:00 EDT HGBA1C is 5.6 this is great. Results: Date Result Name Value Ref Range 03/28/2025 15:23 Hgb A1C % 5.6 % ( - <=5.9) Left detailed message on pt's VM. (identified herself) Pt is to call with any questions. Normal [facility] CHEMISTRYOrdered By: Nicolle Rhodes on 03-28-2025 HbA1c (Bld) [Mass fraction] 5.6 % Normal <=5.9% [facility] ChemAutoSS Family Medicine Office/Clini c Noteon 03-28-2025 Family Medicine Office/Clinic Note Family Medicine Office/Clinic Note HPI Staff Patient is presenting for medication refill (Previous Dr. Kelly pt) Checks every morning- average 102-103 Do you have any of the following symptoms? Foot Exam: 10/02/24 Eye Exam: ??? Last A1C: Hgb A1C %: 5.8 % (09/28/24 09:37:00) Patient is here for follow up on hypertension. How often are you checking your blood pressure? no What are your average readings? Yearly BMP: _ Refills needed- History of Present Illness pt presents today for diabetes follow up, weight management. Review of Systems PHQ Score Initial Depression Screen Score: 0 SCORE Physical Exam Vitals & Measurements T: 36.3 ???C(Temporal Artery) HR: 88(Peripheral) RR: 20 BP: 130/82 SpO2: 97% HT: 165.0 cm HT: 65 in WT: 90.3 kg WT: 199.077 lb BMI: 33.17 General: alert, no acute distress ENMT: oral mucosa moist, no pharyngeal erythema or exudate Cardiovascular: regular rate and rhythm, normal peripheral perfusion Respiratory: Lungs CTA, respirations non labored Extremities: no deformity, no trauma Neurological: oriented x 4, LOC appropriate for age, CN II-XII intact, motor strength equal & normal bilaterally, speech normal Assessment/Plan 1. Type 2 diabetes mellitus with peripheral neuropathy (E11.42: Type 2 diabetes mellitus with diabetic polyneuropathy) pt presents today for follow up on semaglutide. Is due for HGBA1C today. will send in refills for 3 months of 1.8mg dose. pt is currently taking 2 metfromin ER in the morning. she stopped taking the night dose. BS's have been running in the 100's in the am. she stopped the night dose about 2 weeks ago. RTC 3 months for follow up. will check HGBA1C then as well. Ordered: HgbA1c 2. BMI 33.0-33.9,adult (Z68.33: Body mass index [BMI] 33.0-33.9, adult) BMI education given 3. Obesity (BMI 30-39.9) (E66.9: Obesity, unspecified) see above 4. Non-smoker (Z78.9: Other specified health status) continue not smoking 5. Advanced care planning/counseling discussion (Z71.89: Other specified counseling) Orders: hydrochlorothiazide-l isinopril, 1 tab(s), Oral, Daily, 180 tab(s), Refill(s) 3, [facility], 165, cm, 10/02/24 11:39:00 EST, Height/Length Dosing, 97, kg, 10/02/24 11:39:00 EST, Weight Dosing metformin, 1,000 mg = 2 tab(s), Oral, BID, # 360 tab(s), Refills(s) 1, Pharmacy: [facility], 165, cm, 10/02/24 11:39:00 EST, Height/Length Dosing, 97, kg, 10/02/24 11:39:00 EST, Weight Dosing Follow-up No qualifying data available Problem List/Past Medical History Ongoing Advanced care planning/counseling discussion Anticoagulated Aortic atherosclerosis Back pain BMI 35.0-35.9,adult BMI 38.0-38.9,adult Chronic diarrhea Diabetic nephropathy Diverticular disease Family hx of aortic aneurysm Feeling of incomplete bladder emptying Frequency of urination Gout HTN (hypertension) Kidney stone Morbid obesity due to excess calories VOGEL (nonalcoholic steatohepatitis) Nonsmoker Obesity (BMI 30-39.9) ELY (obstructive sleep apnea) Other urethral stricture, female Peripheral neuropathy Post-void dribbling Type 2 diabetes mellitus with peripheral neuropathy Urge incontinence Urgency of urination Weak urine stream Historical Abdominal tenderness Flank pain Gross hematuria HTN - Hypertension Incomplete bladder emptying Type 2 diabetes mellitus with morbid obesity Procedure/Surgical History Cystoscopy and retrograde pyelography (03/20/2020), Abdominal hysterectomy, Appendectomy, Arthroplasty of the hip, Colonoscopy, Gall bladder, H/O: tubal ligation, Partial resection of colon, Tonsillectomy and adenoidectomy, Total knee arthroplasty, Total knee arthroplasty. Medications Blood pressure cuff-wrist, See Instructions CPAP, See Instructions equate sleep aid, 1 tab, Oral, Daily, PRN gabapentin 300 mg Cap, See Instructions Glucophage XR 500 mg Tab-ER, 1000 mg= 2 tab(s), Oral, BID, 1 refills hydrochlorothiazide-l isinopril 12.5 mg-20 mg Tab, 1 tab(s), Oral, Daily, 3 refills meloxicam 15 mg Tab, 15 mg= 1 tab(s), Oral, Daily, 3 refills Metamucil, See Instructions [facility] Prescription, See Instructions, 3 refills [facility] Prescription, See Instructions, 3 refills oxybutynin 5 mg ER Tab, See Instructions, 3 refills Pantoprazole [address] Tab, 40 mg= 1 tab(s), Oral, BID, 3 refills Probiotic Digestive Aid Gummies, See Instructions semaglutide TEST STRIPS AND LANCETS, 1, SubCutaneous, Daily, 3 refills Allergies Dilaudid (Foggy mind) Biaxin CeleBREX Nubain (Unable to obtain, Unable to obtain, Foggy mind) Sulfabenzamide/Sulfac etamide/Sulfathiazole (Unknown) Vioxx nalbuphine (Clouded consciousness, Unable to obtain, Unknown) Social History Alcohol Current. Liquor. 1-2 times per week., 10/02/2024 Substance Abuse - Denies Substance Abuse, 03/12/2020 Never., 10/02/2024 Tobacco - Denies Tobacco Use, 03/12/2020 Never (less than 100 in lifetime) Tobacco (more content not included)... Normal [facility] Comment on above: Result Comment: Elec tronically Signed By: Mary Trotter\.br\Date and Time Signed: 03/28/25 15:43 EDT [id number] 03-28-2025 HbA1c (Bld) [Mass fraction] 5.6 % Normal <=5.9 [facility] Comment on above: Performed By: #### 7 [id number] #### [facility] [address] [place] [address] No Panel Informationon 10-26 [facility] Family Medicine Office/Clini c Noteon 10-02-2024 Family [...] the use of Ozempic and medications from [facility]. She has successfully reduced her A1c to [...] lunch, # 360 cap(s), Refills(s) 0, Pharmacy: [facility], 165, cm, 10/02/24 11:39:00 EST, Height/Length Dosing, 97, kg, 10/02/24 11:39:00 EST, Weight Dosing hydrochlorot (more content not included)... Normal [facility] Comment on above: Result Comment: Elec tronically Signed By: Audie BIGGS, Rimma Alfredo\.br\Date and Time Signed: 10/02/24 12:22 EST CHEMISTRYOrdered [...] (Bld) [Mass fraction] 5.8 % Normal <=5.9% [facility] ChemAutoSS CMPon 09-28-2024 Albumin [Mass/Vol] 4.3 g/dL Normal 3.3-5.0 [facility] Comment on above: Performed By: #### 2 [id number] #### [facility] [address] [place] [address] Albumin/Globulin (S) [Mass conc ratio] 1.4 Normal 1.1-2.2 [facility] Comment on above: Performed By: #### 2 [id number] #### [facility] [address] [place] [address] ALP [Catalytic activity/Vol] 35 Int._Unit/L Normal 21-98 [facility] Comment on above: Performed By: #### 2 [id number] #### [facility] [address] [place] [address] ALT No additional P-5'-P [Catalytic activity/Vol] 16 Int._Unit/L Normal 6-46 [facility] Comment on above: Performed By: #### 2 [id number] #### [facility] [address] [place] [address] Anion gap [Moles/Vol] 14 mmol/L Normal 6-16 [facility] Comment on above: Performed By: #### 2 [id number] #### [facility] [address] [place] [address] AST [Catalytic activity/Vol] 18 Int._Unit/L Normal 5-43 [facility] Comment on above: Performed By: #### 2 [id number] #### [facility] [address] [place] [address] Bilirubin [Mass/Vol] 0.6 mg/dL Normal 0.0-1.1 [facility] Comment on above: Performed By: #### 2 [id number] #### [facility] [address] [place] [address] Calcium [Mass/Vol] 9.0 mg/dL Normal 8.9-11.1 [facility] Comment on above: Performed By: #### 2 [id number] #### [facility] [address] [place] [address] Chloride [Moles/Vol] 100 mmol/L Low 101-111 [facility] Comment on above: Performed By: #### 2 [id number] #### [facility] [address] [place] [address] CO2 [Moles/Vol] 26 mmol/L Normal 21-[address] [facility] Comment on above: Performed By: #### 2 [id number] #### [facility] [address] [place] [address] Creatinine [Mass/Vol] 1.0 mg/dL Normal 0.5-1.3 [facility] Comment on above: Performed By: #### 2 [id number] #### [facility] [address] [place] [address] Globulin (S) [Mass/Vol] 3.1 g/dL Normal 1.4-4.0 [facility] Comment on above: Performed By: #### 2 [id number] #### [facility] [address] [place] [address] Glucose [Mass/Vol] 110 mg/dL Normal 55-199 [facility] Comment on above: Performed By: #### 2 [id number] #### [facility] [address] [place] [address] Potassium [Moles/Vol] 4.2 mmol/L Normal 3.5-5.3 [facility] Comment on above: Performed By: #### 2 [id number] #### [facility] [address] [place] [address] Protein [Mass/Vol] 7.4 g/dL Normal 6.0-7.8 [facility] Comment on above: Performed By: #### 2 [id number] #### [facility] [address] [place] [address] Sodium [Moles/Vol] 136 mmol/L Normal 135-145 [facility] Comment on above: Performed By: #### 2 [id number] #### [facility] [address] [place] [address] Urea nitrogen [Mass/Vol] 16 mg/dL Normal 5-21 [facility] Comment on above: Performed By: #### 2 [id number] #### [facility] [address] [place] [address] Urea nitrogen/Creatinine [Mass ratio] 16 No Units Normal 10-20 [facility] Comment on above: Performed By: #### 2 [id number] #### [facility] [address] [place] [address] [id number] 09-28-2024 HbA1c (Bld) [Mass fraction] 5.8 % Normal <=5.9 [facility] Comment on above: Performed By: #### 7 [id number] #### [facility] [address] [place] [address] Lipid Panelon 09-28-2024 Cholesterol [Mass/Vol] 183 mg/dL Normal 120-200 [facility] Comment on above: Performed By: #### 2 [id number] #### [facility] [address] [place] [address] Cholesterol in HDL [Mass/Vol] 44 mg/dL Invalid Interpretation Code [facility] Comment on above: Result Comment: '>= 60 LOW RISK' '<= 40 HIGH RISK' Performed By: #### 2 [id number] #### [facility] [address] [place] [address] Cholesterol in LDL [Mass/Vol] 96 mg/dL Normal <=129 [facility] Comment on above: Performed By: #### 2 [id number] #### [facility] [address] [place] [address] Cholesterol in VLDL [Mass/Vol] 62 mg/dL High 7-40 [facility] Comment on above: Performed By: #### 2 [id number] #### [facility] [address] [place] [address] Triglyceride [Mass/Vol] 309 mg/dL High <=149 [facility] Comment on above: Performed By: #### 2 [id number] #### [facility] [address] [place] [address] U MA/Cr Ratioon 09-28-2024 Albumin DL <= 20 mg/L (U) [Mass/Vol] 8.8 mg/dL High 0.0-1.9 [facility] Comment on above: Performed By: #### 1 [id number] #### [facility] [address] [place] [address] Albumin/Creatinine DL <= 20 mg/L (U) [Mass ratio] 50.9 mg/gm Cr High .0-30.0 [facility] Comment on above: Result Comment: 30-3 00 mg/g Cr indicates an increased risk for diabetic nephropathy. >300 mg/g Cr is consistent with clinical nephropathy. Performed By: #### 1 [id number] #### [facility] [address] [place] [address] U Creatinine 172.8 mg/dL Invalid Interpretation Code [facility] Comment on above: Performed By: #### 1 [id number] #### [facility] [address] [place] [address] eGFRon 09-28-2024 eGFR 59 mL/min/1.73 m2 Normal >=59 [facility] Comment on above: Performed By: #### 1 [id number] #### [facility] [address] [place] [address] BASIC METABOLIC PANELon 08-27 Calcium [Mass/Vol] 9.8 mg/dL Normal 8.4-10.2 [facility] Comment on above: Order Comment: [facility] has implemented the eGFR calculation approach that does not have a coefficient for race that conforms to the NKF-ASN Task Force Recommendations. Performed By: #### 4 [id number] #### [facility] [address] [address] Ashlee Hull M.D. [id number] CBC WITH AUTO DIFFERENTIALon 09-20-2024 AUTO NRBC 0.0 % Normal [facility] Comment on above: Performed By: #### L [id number] #### [facility] [address] [address] Ashlee Hull M.D. [id number] AUTO NRBC ABS COUNT 0.00 K/mcL Normal 0.00-0.00 [facility] Comment on above: Performed By: #### L [id number] #### [facility] [address] [address] Ashlee Hull M.D. [id number] BASOPHILS ABSOLUTE COUNT 0.03 K/mcL Normal 0.00-0.30 [facility] Comment on above: Performed By: #### L [id number] #### [facility] [address] [place], [place] [address] Ashlee Hull M.D. [id number] Basophils/100 WBC (Bld) 0.4 % Normal [facility] Comment on above: Performed By: #### L [id number] #### [facility] [address] [address] Ashlee Hull M.D. [id number] Eosinophils (Bld) [#/Vol] 0.06 10*3/uL Normal 0.00-0.50 [facility] Comment on above: Performed By: #### L [id number] #### [facility] [address] [address] Ashlee Hull M.D. [id number] Eosinophils/100 WBC (Bld) 0.8 % Normal [facility] Comment on above: Performed By: #### L [id number] #### [facility] [address] [address] Ashlee Hull M.D. [id number] Erythrocyte distribution width (RBC) [Ratio] 12.5 % Normal 11.6-14.8 [facility] Comment on above: Performed By: #### L [id number] #### [facility] [address] [place] [address] Ashlee Hull M.D. [id number] Hematocrit (Bld) [Volume fraction] 38.3 % Normal 36.0-46.0 [facility] Comment on above: Performed By: #### L [id number] #### [facility] [address] [place] [address] Ashlee Hull M.D. [id number] Hemoglobin (Bld) [Mass/Vol] 12.9 g/dL Normal 12.0-16.0 [facility] Comment on above: Performed By: #### L [id number] #### [facility] [address] [place] [address] Ashlee Hull M.D. [id number] IG ABSOLUTE 0.02 K/mcL Normal 0.00-0.30 [facility] Comment on above: Performed By: #### L [id number] #### [facility] [address] [place] [address] Ashlee Hull M.D. [id number] IG PERCENT 0.30 % Normal [facility] Comment on above: Result Comment: The IG parameter is the percentage of metamyelocytes, myelocytes and promyelocytes. An immature granulocyte count (IG) of 1% or more suggests the possibility of infection, an IG count of 3% is very likely related to an infection. Performed By: #### L [id number] #### [facility] [address] [address] Ashlee Hull M.D. [id number] Lymphocytes (Bld) [#/Vol] 2.89 10*3/uL Normal 0.90-4.00 [facility] Comment on above: Performed By: #### L [id number] #### [facility] [address] [address] Ashlee Hull M.D. [id number] Lymphocytes/100 WBC (Bld) 39.3 % Normal [facility] Comment on above: Performed By: #### L [id number] #### [facility] [address] [address] Ashlee Hull M.D. [id number] MCH (RBC) [Entitic mass] 30.9 pg Normal 26.0-34.0 [facility] Comment on above: Performed By: #### L [id number] #### [facility] [address] [address] Ashlee Hull M.D. [id number] MCV (RBC) [Entitic vol] 91.6 fL Normal 80.0-100.0 [facility] Comment on above: Performed By: #### L [id number] #### [facility] [address] [address] Ashlee Hull M.D. [id number] MEAN CORPUSCULAR HEMOGLOBIN CONC 33.7 g/dL Normal 31.0-37.0 [facility] Comment on above: Performed By: #### L [id number] #### [facility] [address] [address] Ashlee Hull M.D. [id number] Monocytes (Bld) [#/Vol] 0.43 10*3/uL Normal 0.30-0.90 [facility] Comment on above: Performed By: #### L [id number] #### [facility] [address] [place], [place] [address] Ashlee Hull M.D. [id number] Monocytes/100 WBC (Bld) 5.8 % Normal [facility] Comment on above: Performed By: #### L [id number] #### [facility] [address] [address] Ashlee Hull M.D. [id number] NEUTROPHILS ABSOLUTE COUNT 3.93 K/mcL Normal 1.70-7.00 [facility] Comment on above: Performed By: #### L [id number] #### [facility] [address] [address] Ashlee Hull M.D. [id number] Neutrophils/100 WBC (Bld) 53.4 % Normal [facility] Comment on above: Performed By: #### L [id number] #### [facility] [address] [address] Ashleelaurel Hull M.D. [id number] Platelet mean volume (Bld) [Entitic vol] 8.7 fL Low 9.4-12.4 [facility] Comment on above: Performed By: #### L [id number] #### [facility] [address] [place], [place] [address] Ashlee Hull M.D. [id number] Platelets (Bld) [#/Vol] 234 10*3/uL Normal 150-400 [facility] Comment on above: Performed By: #### L [id number] #### [facility] [address] [place], [place] [address] Ashlee Hull M.D. [id number] RBC (Bld) [#/Vol] 4.18 10*6/uL Normal 4.00-5.20 [facility] Comment on above: Performed By: #### L [id number] #### [facility] [address] [address] Ashlee Hull M.D. [id number] WBC (Bld) [#/Vol] 7.36 10*3/uL Normal 4.50-11.00 [facility] Comment on above: Performed By: #### L [id number] #### [facility] [address] [place], [place] [address] Ashlee Hull M.D. [id number] CHEM 7on 09-20-2024 Anion gap [Moles/Vol] 22 mmol/L High 10-20 [facility] Comment on above: Order Comment: [facility] has implemented the eGFR calculation approach that does not have a coefficient for race that conforms to the NKF-ASN Task Force Recommendations. Performed By: #### 4 [id number] #### [facility] ([facility] [address] [address] Ashlee Hull M.D. [id number] Performed By: #### 4 [id number] #### [facility] [address] [address] Ashlee Hull M.D. [id number] Chloride [Moles/Vol] 95 mmol/L Low 98-108 [facility] Comment on above: Order Comment: [facility] has implemented the eGFR calculation approach that does not have a coefficient for race that conforms to the NKF-ASN Task Force Recommendations. Performed By: #### 4 6953 #### [facility] [address] [address] Ashlee Hull M.D. [id number] Performed By: #### 4 [id number] #### [facility] [address] [place], [place] [address] Ashlee Hull M.D. [id number] Creatinine [Mass/Vol] 1.06 mg/dL Normal 0.60-1.10 [facility] Comment on above: Order Comment: [facility] has implemented the eGFR calculation approach that does not have a coefficient for race that conforms to the NKF-ASN Task Force Recommendations. Performed By: #### 4 6953 #### [facility] ([facility] [address] [place], [place] [address] Ashlee Hull M.D. [id number] Performed By: #### 4 [id number] #### ([facility] [address] [place], [place] [address] Ashlee Hull M.D. [id number] EGFR 56 mL/min/1.73 m2 Low >=60 [facility] Comment on above: Order Comment: [facility] has implemented the eGFR calculation approach that does not have a coefficient for race that conforms to the NKF-ASN Task Force Recommendations. Result Comment: Natacha mated GFR was calculated using the 2020 CKD-EPI creatinine equation. Estimated GFR was calculated using the 2020 CKD-EPI creatinine equation. Performed By: #### 4 6953 #### [facility] ([facility] [address] [address] Ashlee Hull M.D. [id number] Result Comment: Natacha mated GFR was calculated using the 2020 CKD-EPI creatinine equation. Performed By: #### 4 [id number] #### [facility] ([facility] [address] [place], [place] [address] Ashlee Hull M.D. [id number] Glucose [Mass/Vol] 107 mg/dL High 65-99 [facility] Comment on above: Order Comment: [facility] has implemented the eGFR calculation approach that does not have a coefficient for race that conforms to the NKF-ASN Task Force Recommendations. Performed By: #### 4 6953 #### [facility] ([facility] [address] [place], [place] [address] Ashlee Hull M.D. [id number] Performed By: #### 4 6124 #### [facility] ([facility] [address] [place], [place] [address] Ashlee Hull M.D. [id number] HCO3 (Bld) [Moles/Vol] 23 mmol/L Normal 21-32 [facility] Comment on above: Order Comment: [facility] has implemented the eGFR calculation approach that does not have a coefficient for race that conforms to the NKF-ASN Task Force Recommendations. Performed By: #### 4 6953 #### [facility] [address] [place], [place] [address] Ashlee Kurtis M.DPastora [id number] Performed By: #### 4 6124 #### [facility] ([facility] [address] [place], [place] [address] Ashlee Rosieramaci, M.DPastora [id number] Potassium [Moles/Vol] 4.8 mmol/L Normal 3.5-5.1 [facility] Comment on above: Order Comment: [facility] has implemented the eGFR calculation approach that does not have a coefficient for race that conforms to the NKF-ASN Task Force Recommendations. Performed By: #### 4 6953 #### [facility] [address] [place], [place] [address] Ashlee Kurtis M.DPastora [id number] Performed By: #### 4 6124 #### [facility] ([facility] [address] [place], [place] [address] Ashlee Daraararamaci, M.D. [id number] Sodium [Moles/Vol] 135 mmol/L Normal 135-145 [facility] Comment on above: Order Comment: [facility] has implemented the eGFR calculation approach that does not have a coefficient for race that conforms to the NKF-ASN Task Force Recommendations. Performed By: #### 4 6953 #### [facility] [address] [place], [place] [address] Ashlee Kurtis M.DPastora [id number] Performed By: #### 4 6124 #### [facility] [address] [place], [place] [address] Ashlee Daraararamaci, M.DPastora [id number] Urea nitrogen [Mass/Vol] 21 mg/dL Normal 8-25 [facility] Comment on above: Order Comment: [facility] has implemented the eGFR calculation approach that does not have a coefficient for race that conforms to the NKF-ASN Task Force Recommendations. Performed By: #### 4 6953 #### [facility] [address] [place], [place] [address] Ashlee Hull M.D. [id number] Performed By: #### 4 [id number] #### [facility] ([facility] [address] [place], [place] [address] Ashlee Hull M.D. [id number] Urea nitrogen/Creatinine [Mass ratio] 19.8 mg/mg Normal 10.0-20.0 [facility] Comment on above: Order Comment: [facility] has implemented the eGFR calculation approach that does not have a coefficient for race that conforms to the NKF-ASN Task Force Recommendations. Performed By: #### [id number] #### [facility] ([facility] LAB [address] [place], [place] [address] Ashlee Hull M.D. [id number] Performed By: #### 4 [id number] #### [facility] ([facility] [address] [place], [place] [address] Ashlee Hull M.D. [id number] CT ABDOMEN PELVIS WITHOUT CO NTRASTon 09-20-2024 [...] post cholecystectomy and hysterectomy. MS/lab Workstation ID: [id number] Dictated by: MAGGY LUIS on TueSep 20, 2024 4:01:25 PM EST Transcribed by: BEATA AHN on Lorraine Sep 20, 2024 4:04:27 PM EST Finalized by: MAGGY LUIS on Heron Sep 23, 2024 6:46:42 PM EST Normal [facility] Comment on above: Order Comment: Injur y/Trauma or Illness?:Illness/Other How long have you had these symptoms (acute/chronic)?:Acute Reason for exam?:LLQ abdominal pain this morning Type of Exam?:Initial Additional signs and symptoms?:no ED Prov Noteon 09-20-2024 ED Prov Note EMERGENCY MEDICINE PROVIDER NOTE [facility] Encounter Date: 09/20/24 History obtained [...] and hysterectomy (more content not included)... Normal [facility] Ambulatory Visit Summaryon 1 Ambulatory Visit Summary [...] Appointments Tuesday 9:20 AM EST With: Where: [address] [address]- Tuesday 1:15 PM EST With: Rimma Kelly MD Where: [address] [address]- 2024 2:30 PM EDT With: Where: [address] [address]- You Need to Complete the Following Comprehensive [...] Prescription (BAYLEE (more content not included)... Normal [facility] Family Medicine Office/Clini c Noteon 07-02-2024 [...] No actual or suspected pain Rachel Bolanos 06/26/2024 14:44 EDT Hearing and Vision Screening FT FT Whisper Test Comments : no hearing deficits Vision Screen Comments : wears corrective lens. Goes to [facility] yearly. Rachel Bolanos 06/26/2024 14:44 EDT Advance Directive FT Advance Directive : No Patient Wishes to Receive Further Information on Advance Directives : No Organ Donation Consent : No Rachel Bolanos 06/26/2024 14:44 EDT Procedures / Surgeries FT - Procedure History (As Of: 06/26/2024 15:02:21 EDT) Procedure Dt/Tm: 03/20/2020 ; Provider: Medhat BOLANOS MD; Anesthesia Minutes: 0 ; Procedure Name: Cystoscopy and retrograde pyelography ; Procedure Minutes: 0 ; Comments: 03/20/2020 15:21 EDT Starr Estrella RN, Melida right ; Last Reviewed Dt/Tm: 06/26/2024 14:49:17 EDT Anesthesia Minutes: 0 ; Procedure Name: Total knee arthroplasty ; Procedure Minutes: 0 ; Comments: 03/20/2020 7:18 CESAR Gibson RN, Leigh Ann Asif left ; Last Reviewed Dt/Tm: 06/26/2024 14:49:17 EDT Anesthesia Minutes: 0 ; Procedure Name: Total knee arthroplasty ; Procedure Minutes: 0 ; Comments: 03/20/2020 7:18 CESAR Gibson RN, Leigh Ann Asif right ; Last Reviewed Dt/Tm: 06/26/2024 14:49:17 EDT Anesthesia Minutes: 0 ; Procedure Name: Tonsillectomy and adenoidectomy ; Procedure Minutes: 0 ; Last Reviewed Dt/Tm: 06/26/2024 14:49:17 EDT Anesthesia Minutes: 0 ; Procedure Name: Arthroplasty of the hip ; Procedure Minutes: 0 ; Comments: 03/20/2020 7:18 CESAR Gibson RN, Leigh Ann Asif left ; Last Reviewed Dt/Tm: 06/26/2024 14:49:17 [...] 0 ; Comments: 07/19/2023 7:38 EDT - Romelia DAS, Shannon Munguia 2010 normal ; Last Reviewed Dt/Tm: 06/26/2024 [...] Alcohol: Comments: 06/29/2023 13:21 - Fam Pedroza: denies [...] 14:50:36 ED (more content not included)... Normal [facility] Comment on above: Result Comment: Elec tronically Signed By: Rimma Kelly MD\.br\Date and Time Signed: 07/02/24 15:04 EDT\.br\Electronically Co-Signed By: Rachel Bolanos\.br\Date and Time Co-Signed: 06/26/24 16:50 EDT Ambulatory Visit Summaryon 1 Ambulatory Visit Summary Ambulatory Visit Summary CORLEYDAKSHA Nat :1950 Visit Date:06/26/2024 Ambulatory Visit Instructions Your Diagnosis Type 2 diabetes mellitus with morbid obesity HTN (hypertension) Morbid (severe) obesity due to excess calories ELY (obstructive sleep apnea) Varicose veins of calf Your Care Team Attending Physician - Rimma Kelly MD Primary Care Physician - Rimma Kelly MD This Is Your Medications List Contact [...] Appointments Tuesday 9:20 AM EST With: Where: [address] [address]- Tuesday 1:15 PM EST With: Rimma Kelly MD Where: [address] [address]- 2024 2:30 PM EDT With: Where: [address] [address]- Medications What How Much When Why Instructions [...] oxybutynin (oxybu (more content not included)... Normal [facility] Ambulatory Visit Summary Ambulatory Visit Summary [...] EST With: Audie BIGGS, Rimma Alfredo Where: [facility] Medicine [address] [address]- Medications What How Much When Why Instructions [...] neuropathy Pos (more content not included)... Normal [facility] Medicine Office/Clini c Noteon 06-26-2024 Family Medicine [...] medicare to cover it. Fax to # [phone] ( [facility]) Needs refills of her her [...] in semaglutide dosing suggested. Ordered: A1c POC [address]71 [facility] Internal Ambulatory Referral 2. HTN (hypertension) (I10: Essential (primary) hypertension) Management of essential hypertension was not a primary focus of today's discussion, but continued adherence to current treatment regimens is presumed. Ordered: A1c POC 8[address]72 [facility] Internal Ambulatory Referral 3. Morbid (severe) obesity [...] enhance weight loss efficacy. Ordered: A1c POC [address]7616 [facility] Internal Ambulatory Referral 4. ELY (obstructive s (more content not included)... Normal [facility] Comment on above: Result Comment: Elec [...] Kelly MD. This Is Your Medications List gabapentin (gabapentin [...] Follow-Up Appointments Tuesday 1:00 PM EDT Where: [facility] [place] Normal [facility] Family Medicine Office/Clini c Noteon 03-27-2024 [...] - No other issues Ordered: A1c POC 98584 Body Mass Index (BMI) documented 3008F Current [...] - Continue as before Ordered: A1c POC 90443 Body Mass Index (BMI) documented 3008F Current [...] - BMI education added Ordered: A1c POC 78132 Body Mass Index (BMI) documented 3008F Current [...] Diet and exercise advised Ordered: A1c POC 97787 Body Mass Index (BMI) documented 3008F Current [...] continue to not smoke Ordered: A1c POC 68753 Body Mass Index (BMI) documented 3008F Current [...] lunch, # 360 cap(s), Refills(s) 0, Pharmacy: [facility], 165, cm, 03/27/24 10:13:00 EDT, Height/Length Dosing, 107.9, kg, 03/27/24 10:13:00 EDT, Weight Dosing semaglutide, 0.25 mg, SubCutaneous, qWeek, # 3 mL, Refills(s) 0, Pharmacy: [facility], 165, cm, 03/27/24 10:13:00 EDT, Height/Length Dosing, 107.9, kg, 03/27/24 10:13:00 EDT, Weight Dosing Follow-up No qualifying data available Patient Education BMI for Adults Problem List/Past Medical History Ongoing Advanced care planning/counseling discussion Anticoagulated Aortic atherosclerosis Back pain BMI 39.0-39.9,adult Chronic diarrhea Diverticular disease Family hx of aortic aneurysm Feeling of incomplete bladder emptying Frequency of (more content not included)... Normal [facility] Comment on above: Result Comment: Elec [...] replacement. Pressure setting 11 Fax to [facility] [phone] Do you have any of the following [...] EA, Oral, BID, 210 gram, Refill(s) 0, [facility], 165, cm, 01/03/24 10:13:00 EDT, Height/Length Dosing, 108.1, kg, 01/03/24 10:13:00 EDT, Weight Dosing 2. Type 2 diabetes mellitus with morbid obesity (E11.69: Type 2 diabetes mellitus with other specified complication) - Will recheck A1c today. Ordered: cholestyramine, 5 gram, 1 EA, Oral, BID, 210 gram, Refill(s) 0, [facility], 165, cm, 01/03/24 10:13:00 EDT, Height/Length Dosing, 108.1, kg, 01/03/24 10:13:00 EDT, Weight Dosing 3. BMI 39.0-39.9,adult (Z68.39: Body mass index [BMI] 39.0-39.9, adult) - BMI education uploaded Ordered: cholestyramine, 5 gram, 1 EA, Oral, BID, 210 gram, Refill(s) 0, [facility], 165, cm, 01/03/24 10:13:00 EDT, Height/Length Dosing, 108.1, kg, 01/03/24 10:13:00 EDT, Weight Dosing 4. Class 1 obesity due to excess calories in adult (E66.09: Other obesity due to excess calories) - Diet and exercise advised Ordered: cholestyramine, 5 gram, 1 EA, Oral, BID, 210 gram, Refill(s) 0, [facility], 165, cm, 01/03/24 10:13:00 EDT, Height/Length Dosing, 108.1, kg, 01/03/24 10:13:00 EDT, Weight Dosing 5. Nonsmoker (Z78.9: Other specified health status) - Please continue to not smoke Ordered: cholestyramine, 5 gram, 1 EA, Oral, BID, 210 gram, Refill(s) 0, [facility], 165, cm, 01/03/24 10:13:00 EDT, Height/Length Dosing, 108.1, kg, 01/03/24 10:13:00 EDT, Weight Dosing 6. ELY (obstructive sleep apnea) (G47.33: Obstructive sleep apnea (adult) (pediatric)) - Will redo the CPAP Ordered: cholestyramine, 5 gram, 1 EA, Oral, BID, 210 gram, Refill(s) 0, [facility], 165, cm, 01/03/24 10:13:00 EDT, Height/Length Dosing, 108.1, kg, 01/03/24 10:13:00 EDT, Weight Dosing 7. Chronic diarrhea (K52.9: Noninfective gastroenteritis and colitis, unspecified) - Will try Cholestyramine given hx of gallbladder. - Maybe 2/2 partial colectomy. Ordered: cholestyramine, 5 gram, 1 EA, Oral, BID, 210 gram, Refill(s) 0, [facility], 165, cm, 01/03/24 10:13:00 EDT, Height/Length Dosing, 108.1, kg, 01/03/24 10:13:00 EDT, Weight Dosing 8. Family hx of aortic aneurysm (Z82.49: Family history of ischemic heart disease and other diseases of the circulatory system) U/S ordered. Ordered: US Aorta Orders: gabapentin, 300 mg = 1 cap(s), Oral, BID, # 180 cap(s), Refills(s) 0, Pharmacy: [facility], 165, cm, 01/03/24 10:13:00 EDT, Height/Length [...] Historical Abdomi (more content not included)... Normal [facility] Comment on above: Result Comment: Elec tronically Signed By: Audie BIGGS, Rimma Alfredo\.br\Date and Time Signed: 03/02/24 10:56 EDT RAD - Ultrasound Reporton RAD - Ultrasound Report [id number] .00TIFF Dexter Hercules [facility] Ambulatory Visit Summaryon 0 01-03-2024 Ambulatory Visit [...] EDT With: Audie BIGGS, Rimma Alfredo Where: [facility] [place] Normal [address] [place] [address]- \.br\ You Need to Complete the Following\.br\ US Aorta, 01/03/24, Routine, Order for future visit, Transport Mode: Ambulatory, Reason: Other (please specify), No, Family hx of aortic aneurysm, Family Hx. Recommended by brothers Density Control Puncher., pp_set_radiology_ subspecialty, Not Required, [facility]\.br\ Medications\.br\ What How Much When Why Instructions\.br\ New cholestyramine (cholestyramine 4 g/ 5 g Oral Pwdr) 1 Each By Mouth 2 times a day HTN (hypertension) Type 2 diabetes mellitus with morbid obesity BMI 39.0-39.9,adult Class 1 obesity due to excess calories in adult Nonsmoker ELY (obstructive sleep apnea) Chronic diarrhea Pickup at [facility]\.br\ Unchanged gabapentin (gabapentin 300 mg Cap) 1 Capsules By Mouth 2 times a day Pickup at [facility]\.br\ Unchanged ascorbic acid (ascorbic acid 1000 [...] if questions or concerns \.br\ Pharmacy Information\.br\ [facility]: [address] [place], [place] [id number] [phone]\.br\ Allergies\.br\ Dilaudid (Foggy mind)\.br\ Biaxin\.br\ CeleBREX\.br\ Nubain [...] for choosing us for your care.\.br\ \.br\ [facility] Retail - Clinical Noteon Retail - Clinical Note [id number] .00TIFF Normal [facility] Consultation Noteon 11-02-19 Consultation Note [id number] .00TIFF Normal [facility] XR FOOT LT MIN 3 VIEWSon [...] TARAS WILEY Date: 2022-11-21 01:25 Normal [facility] [place] [facility] MARQUEZ by IFAon 09-09-2022 Antinuclear Antibodies, IFA Negative Normal [facility] [place] [facility] Comment on above: Result Comment: Nega tive <1:80 Borderline 1:80 Positive >1:80 ICAP nomenclature: AC-0 For more information about Hep-2 cell patterns use ANApatterns.org, the official website for the International Consensus on Antinuclear Antibody (MARQUEZ) Patterns (ICAP). Performed By: #### A NAIFA ####[facility] [place] [facility] [address] [place] [address]DrPastora Cortes ANTISTREPTOLYSIN O AB (ASO)o n 09-08-2022 Antistreptolysin O Ab 104.5 IU/mL Normal 0.0-200.0 [facility] [place] [facility] Comment on above: Performed By: #### A SOAB #### [facility] [place] [facility] Laboratory [address] [place] [address] Dr. Marcella Cortes RHEUMATOID FACTORon 09-08-20 RA Latex Turbid. <10.0 Normal <14.0 [facility] Comment on above: Performed By: #### R F #### [facility] [place] [facility] [address] [place] [address] Dr. Marcella Cortes CBC AUTO DIFFon 09-07-2022 BASO # 0.0 103/ul Normal 0.0-0.1 [facility] [place] [facility] Comment on above: Performed By: #### C BC ####[facility] [place] [facility] [address] [place], [place] [address]DrPastora Cortes Basophils/100 WBC (Bld) 0.5 % Normal 0.2-2.0 [facility] [place] [facility] Comment on above: Performed By: #### C BC ####[facility] [place] [facility] [address] [place], [place] [address]Dr. Marcella Cortes EO # 0.1 103/ul Normal 0.0-0.7 [facility] [place] [facility] Comment on above: Performed By: #### C BC ####[facility] [place] [facility] [address] [place], [place] [address]Dr. Marcella Cortes Eosinophils/100 WBC (Bld) 1.4 % Normal 0.9-7.0 [facility] [place] [facility] Comment on above: Performed By: #### C BC ####[facility] [place] [facility] [address] [place], [place] [address]Dr. Marcella Sebastian Erythrocyte distribution width (RBC) [Ratio] 12.6 % Normal 11.0-15.0 [facility] [place] [facility] Comment on above: Performed By: #### C BC ####[facility] [place] [facility] [address] [place], [place] [address]Dr. Marcella Cortes Hematocrit (Bld) [Volume fraction] 37.1 % Normal 36.0-48.0 [facility] [place] [facility] Comment on above: Performed By: #### C BC ####[facility] [place] [facility] [address] [place], [place] [address]Dr. Marcella Cortes Hemoglobin (Bld) [Mass/Vol] 12.4 g/dL Normal 12.0-16.0 [facility] [place] [facility] Comment on above: Performed By: #### C BC ####[facility] [place] [facility] [address] [place], [place] [address]Dr. Marcella Cortes IG # 0.03 10e3/ul Normal 0.00-0.03 [facility] [place] [facility] Comment on above: Performed By: #### C BC ####[facility] [place] [facility] [address] [place], [place] [address]Dr. Marcella Cortes IG % 0.5 % Normal 0.0-0.5 [facility] [place] [facility] Comment on above: Performed By: #### C BC ####[facility] [place] [facility] [address] [place], [place] [address]Dr. Marcella Cortes LYMPH # 2.4 103/ul Normal 1.2-3.8 [facility] [place] [facility] Comment on above: Performed By: #### C BC ####[facility] [place] [facility] [address] [place], [place] [address]Dr. Marcella Cortes Lymphocytes/100 WBC (Bld) 36.2 % Normal 20.5-60.0 [facility] [place] [facility] Comment on above: Performed By: #### C BC ####[facility] [place] [facility] [address] [place], [place] [address]DrPastora Cortes MANUAL DIFF REQ NO Normal [facility] Comment on above: Performed By: #### C BC ####[facility] [place] [facility] [address] [place] [address]Dr. Marcella Cortes MCH (RBC) [Entitic mass] 30.3 pg Normal 26.7-34.0 [facility] Comment on above: Performed By: #### C BC ####[facility] [place] [facility] [address] [place] [address]Dr. Marcella Cortes MCHC (RBC) [Mass/Vol] 33.4 g/dL Normal 29.9-35.2 [facility] [place] [facility] Comment on above: Performed By: #### C BC ####[facility] [place] [facility] [address] [place], [place] [address]DrPastora Cortes MCV (RBC) [Entitic vol] 90.7 fL Normal 81.0-99.0 [facility] [place] [facility] Comment on above: Performed By: #### C BC ####[facility] [place] [facility] [address] [place], [place] [address]DrPastora Cortes MONO # 0.4 103/ul Normal 0.3-0.8 [facility] [place] [facility] Comment on above: Performed By: #### C BC ####[facility] [place] [facility] [address] [place], [place] [address]DrPastora Cortes Monocytes/100 WBC (Bld) 5.9 % Normal 1.7-12.0 [facility] [place] [facility] Comment on above: Performed By: #### C BC ####[facility] [place] [facility] [address] [place], [place] [address]DrPastora Cortes NEUT # 3.7 103/ul Normal 1.4-6.5 [facility] [place] [facility] Comment on above: Performed By: #### C BC ####[facility] [place] [facility] [address] [place], [place] [address]DrPastora Cortes Neutrophils/100 WBC (Bld) 55.5 % Normal 43.0-75.0 [facility] [place] [facility] Comment on above: Performed By: #### C BC ####[facility] [place] [facility] [address] [place], [place] [address]DrPastora Cortes Platelet mean volume (Bld) [Entitic vol] 8.7 fL Critically low 9.5-13.5 [facility] Comment on above: Performed By: #### C BC ####[facility] [place] [facility] [address] [place], [place] [address]PaPastora Cortes PLT 224 103/ul Normal 150-450 [facility] [place] [facility] Comment on above: Performed By: #### C BC ####[facility] [place] [facility] [address] [place], [place] [address]DlDr. Marcella Cortes RBC 4.09 106/ul Critically low 4.20-5.40 [facility] Comment on above: Performed By: #### C BC ####[facility] [place] [facility] [address] [place] [address]DrPastora Cortes WBC 6.7 103/ul Normal 4.0-11.0 [facility] Comment on above: Performed By: #### C BC ####[facility] [place] [facility] [address] [place] [address]Dr. Marcella Cortes CRPon 09-07-2022 CRP 0.7 mg/dL Normal <=1.0 [facility] Comment on above: Performed By: #### C RP, URIC, LIPID, CMP #### [facility] [place] [facility] [address] [place], [place] [address] Dr. Marcella Cortes GLYCOHEMOGLOBIN A1Con 2021 ADA RECOMMENDATION SEE BELOW Normal [facility] Comment on above: Result Comment: ADA RECOMMENDED LIMIT 4.0 - 6.0 ADA THERAPEUTIC TARGET < 7.0 ACTION SUGGESTED > 7.0 Performed By: #### A 1C ####[facility] [place] [facility] [address] [place] [address]Dr. Marcella Cortes Glucose [Mass/Vol] 186 mg/dL Normal [facility] Comment on above: Performed By: #### A 1C ####[facility] [place] [facility] [address] [place] [address]Dr. Marcella Cortes HbA1c (Bld) [Mass fraction] 8.1 % Critically high 4.5-6.2 [facility] Comment on above: Performed By: #### A 1C ####[facility] [place] [facility] [address] [place], [place] [address]SiDr. Marcella Cortes LIPID PROFILEon 09-07-2022 CHOL-HDL RATIO NORM SEE BELOW Normal [facility] Comment on above: Result Comment: 3.3 - 4.4 LOW RISK 4.4 - 7.1 AVERAGE RISK 7.1 - 11.0 MODERATE RISK >11.0 HIGH RISK Performed By: #### C RP, URIC, LIPID, CMP #### [facility] [place] [facility] [address] [place] [address] [address] Marcella Cortes Cholesterol [Mass/Vol] 187 mg/dL Normal <=200 [facility] Comment on above: Performed By: #### C RP, URIC, LIPID, CMP #### [facility] [place] [facility] [address] [place] [address] [address] Marcella Cortes Cholesterol in HDL [Mass/Vol] 44 mg/dL Normal 40-60 [facility] Comment on above: Performed By: #### C RP, URIC, LIPID, CMP #### [facility] [place] [facility] [address] [place] [address] [address] Marcella Cortes Cholesterol in LDL [Mass/Vol] 97.0 mg/dL Normal [facility] Comment on above: Performed By: #### C RP, URIC, LIPID, CMP #### [facility] [place] [facility] [address] [place] [address] [address] Marcella Cortes Cholesterol.total/C holesterol in HDL [Mass ratio] 4.3 {ratio} Normal [facility] Comment on above: Performed By: #### C RP, URIC, LIPID, CMP #### [facility] [place] [facility] [address] [place] [address] [address] Marcella Cortes HDL NORMAL > or = 60 mg/dl - LO W CARDIOVASCULAR RISK <40 mg/dl - HIGH CARDIOVASCULAR RISK Normal [facility] Comment on above: Performed By: #### C RP, URIC, LIPID, CMP #### [facility] [place] [facility] [address] [place] [address] [address] Marcella Cortes LDL CALC NORMAL SEE BELOW Normal [facility] Comment on above: Result Comment: <100 mg/dl OPTIMAL 100 - 129 mg/dl NEAR OR ABOVE OPTIMAL 130 - 159 mg/dl BORDERLINE HIGH 160 - 189 mg/dl HIGH >190 mg/dl VERY HIGH Performed By: #### C RP, URIC, LIPID, CMP #### [facility] [place] [facility] [address] [place] [address] Dr. Marcella Cortes Triglyceride [Mass/Vol] 230 mg/dL Critically high <=150 [facility] Comment on above: Performed By: #### C RP, URIC, LIPID, CMP #### [facility] [place] [facility] [address] [place] [address] Dr. Marcella Cortes VLDL CALC 46.0 mg/dL Normal [facility] Comment on above: Performed By: #### C RP, URIC, LIPID, CMP #### [facility] [place] [facility] [address] [place] [address] Dr. Marcella Cortes PROF 14(COMP METB)on 022 Albumin [Mass/Vol] 3.8 g/dL Normal 3.4-5.0 [facility] Comment on above: Performed By: #### C RP, URIC, LIPID, CMP #### [facility] [place] [facility] [address] [place] [address] Dr. Marcella Cortes Albumin/Globulin [Mass ratio] 0.9 {ratio} Normal [facility] Comment on above: Performed By: #### C RP, URIC, LIPID, CMP #### [facility] [place] [facility] [address] [place] [address] Dr. Marcella Cortes ALP [Catalytic activity/Vol] 46 U/L Normal 46-116 [facility] [place] [facility] Comment on above: Performed By: #### C RP, URIC, LIPID, CMP #### [facility] [place] [facility] [address] [place] [address] Dr. Marcella Cortes ALT [Catalytic activity/Vol] 29 U/L Normal 14-59 [facility] Comment on above: Performed By: #### C RP, URIC, LIPID, CMP #### [facility] [place] [facility] [address] [place] [address] Dr. Marcella Cortes Anion gap [Moles/Vol] 16.2 mmol/L Normal [facility] Comment on above: Performed By: #### C RP, URIC, LIPID, CMP #### [facility] [place] [facility] [address] [place] [address] [address] Marcella Cortes AST [Catalytic activity/Vol] 20 U/L Normal 15-37 [facility] Comment on above: Performed By: #### C RP, URIC, LIPID, CMP #### [facility] [place] [facility] [address] [place] [address] [address] Marcella Cortes Bilirubin [Mass/Vol] 0.4 mg/dL Normal 0.2-1.0 [facility] Comment on above: Performed By: #### C RP, URIC, LIPID, CMP #### [facility] [place] [facility] [address] [place] [address] [address] Marcella Cortes Calcium [Mass/Vol] 9.2 mg/dL Normal 8.5-10.1 [facility] Comment on above: Performed By: #### C RP, URIC, LIPID, CMP #### [facility] [place] [facility] [address] [place] [address] Dr. Marcella Cortes Chloride [Moles/Vol] 98 mmol/L Normal 98-107 [facility] Comment on above: Performed By: #### C RP, URIC, LIPID, CMP #### [facility] [place] [facility] [address] [place] [address] [address] Marcella Cortes CO2 [Moles/Vol] 26.1 mmol/L Normal 21.0-32.0 [facility] Comment on above: Performed By: #### C RP, URIC, LIPID, CMP #### [facility] [place] [facility] [address] [place] [address] [address] Marcella Cortes Creatinine [Mass/Vol] 0.84 mg/dL Normal 0.55-1.02 [facility] Comment on above: Performed By: #### C RP, URIC, LIPID, CMP #### [facility] [place] [facility] [address] [place] [address] [address] Marcella Cortes EGFR-AF MONEGASQUE >60 Normal >=60 [facility] Comment on above: Performed By: #### C RP, URIC, LIPID, CMP #### [facility] [place] [facility] [address] [place] [address] [address] Marcella Cortes EGFR-NON AF MONEGASQUE >60 Normal >=60 [facility] Comment on above: Performed By: #### C RP, URIC, LIPID, CMP #### [facility] [place] [facility] [address] [place] [address] [address] Marcella Cortes Globulin (S) [Mass/Vol] 4.0 g/dL Normal [facility] Comment on above: Performed By: #### C RP, URIC, LIPID, CMP #### [facility] [place] [facility] [address] [address] [address] Marcella Cortes Glucose [Mass/Vol] 163 mg/dL Critically high 74-106 T [facility] Comment on above: Performed By: #### C RP, URIC, LIPID, CMP #### [facility] [place] [facility] [address] [place] [address] Dr. Marcella Cortes Potassium [Moles/Vol] 4.3 mmol/L Normal 3.5-5.1 [facility] Comment on above: Performed By: #### C RP, URIC, LIPID, CMP #### [facility] [place] [facility] [address] [place] [address] Dr. Marcella Cortes Protein [Mass/Vol] 7.8 g/dL Normal 6.4-8.2 [facility] Comment on above: Performed By: #### C RP, URIC, LIPID, CMP #### [facility] [place] [facility] [address] [place] [address] Dr. Marcella Cortes Sodium [Moles/Vol] 136 mmol/L Normal 136-145 [facility] Comment on above: Performed By: #### C RP, URIC, LIPID, CMP #### [facility] [place] [facility] [address] [place] [address] Dr. Marcella Cortes Urea nitrogen [Mass/Vol] 15.0 mg/dL Normal 7.0-18.0 [facility] Comment on above: Performed By: #### C RP, URIC, LIPID, CMP #### [facility] [place] [facility] [address] [place] [address] Dr. Marcella Cortes Urea nitrogen/Creatinine [Mass ratio] 17.9 mg/mg Normal [facility] Comment on above: Performed By: #### C RP, URIC, LIPID, CMP #### [facility] [place] [facility] [address] [place] [address] [address] Marcella Cortes URIC ACID SERUMon 09-07-2022 Urate [Mass/Vol] 7.4 mg/dL Critically high 2.6-6.0 [facility] Comment on above: Performed By: #### C RP, URIC, LIPID, CMP #### [facility] [place] [facility] [address] [place], [place] [address] CARDIAC SCORINGon 022 [...] unspecified complications . COMPARISON: None. ACCESSION NUMBER(S): [id number] ORDERING CLINICIAN: TERRI ROJO TECHNIQUE: Using prospective [...] link below [email or web address] [email or web address]. aspx Logan agarwal al. JACC 2014 (http://dx.doi.org/10 .1016/j.j acc.2015.08.035) Reading Density Control Puncher: Dr. Jewel Vincent, Date: 03/18/2022 10:08 am Electronically signed by: MACO LUNA MD [facility] US BREAST LEFT LIMITEDon US BREAST LEFT LIMITED Patient: DAKSHA CORLEY Exam Date: 01/13/2022 : 1950 Gender:F Ordering : DR TERRI ROJO . Admission #: [id number] Family : Order #: [id number] CLICK HERE TO VIEW EXAM RADIOLOGY REPORT [...] Forde M.D. on 01/13/2022 at 10:54 Normal [facility] MG MAMM SCREEN 3D CAMERON CADon 01-08-2022 MG MAMM SCREEN 3D CAMERON CAD Patient: DAKSHA CORLEY Exam Date: 01/08/2022 : 1950 Gender:F Ordering : DR TERRI ROJO . Admission #: [id number] Family : Order #: [id number] CLICK HERE TO VIEW EXAM RADIOLOGY REPORT [...] Treatments None Family Cancers None LOCATION: [facility] BREAST COMPOSITION: Heterogeneously dense,which may [...] Forde M.D. on 01/08/2022 at 15:21 Normal [facility] XR DEXA BONE DENSITYon 01-08 XR DEXA [...] by: PLACIDO FORDE Date: 2022-01-08 11:07 Normal [facility] Vital Signs Date Time Vital Sign Value Performing Clinician Facility 02-19-2025 10:25-0400 Body height 167.6 cm Sulma Weston MD Work Phone: [facility] 02-19-2025 10:25-0400 Body mass index (BMI) [Ratio] 33.41 kg/m2 Sulma Weston MD Work Phone: [facility] 02-19-2025 10:25-0400 Body weight 93.89 kg Sulma Weston MD Work Phone: [facility] 02-19-2025 10:25-0400 Diastolic blood pressure 64 mm[Hg] Sulma Weston MD Work Phone: [facility] 02-19-2025 10:25-0400 Heart rate 88 /min Sulma Weston MD Work Phone: [facility] 02-19-2025 10:25-0400 Systolic blood pressure 90 mm[Hg] Sulma Weston MD Work Phone: [facility] 01-30-2025 09:21-0400 Body height 167.6 cm Sulma Weston MD Work Phone: [facility] 01-30-2025 09:21-0400 Body mass index (BMI) [Ratio] 33.41 kg/m2 Sulma Weston MD Work Phone: [facility] 01-30-2025 09:21-0400 Body weight 93.89 kg Sulma Weston MD Work Phone: [facility] 01-30-2025 09:21-0400 Diastolic blood pressure 66 mm[Hg] Sulma Weston MD Work Phone: [facility] 01-30-2025 09:21-0400 Heart rate 96 /min Sulma Weston MD Work Phone: [facility] 01-30-2025 09:21-0400 Systolic blood pressure 111 mm[Hg] Sulma Weston MD Work Phone: [facility] 09-05-2023 10:00-0500 Body height 167.64 cm Atif Lillian Other [facility] Other 09-05-2023 10:00-0500 Body mass index (BMI) [Ratio] 37.12 kg/m2 Atif Lillian Other [facility] Other 09-05-2023 10:00-0500 Body weight 104.33 kg Atif Lillian Other [facility] Other 05-23-2023 11:15-0400 Body height 167.64 cm Atif Lillian Other [facility] Other 05-23-2023 11:15-0400 Body mass index (BMI) [Ratio] 37.12 kg/m2 Atif Lillian Other [facility] Other 05-23-2023 11:15-0400 Body weight 104.33 kg Atif Lillian Other [facility] Other 03-30-2023 11:15-0400 Body height 167.64 cm Atif Lillian Other [facility] Other 03-30-2023 11:15-0400 Body mass index (BMI) [Ratio] 37.12 kg/m2 Atif Lillian Other [facility] Other 03-30-2023 11:15-0400 Body weight 104.33 kg Atif Lillian Other [facility] Other 02-16-2023 11:15-0400 Body height 167.64 cm Atif Lillian Other [facility] Other 12-08-2022 12:00-0400 Body height 167.64 cm Atif Lillian Other [facility] Other 12-08-2022 12:00-0400 Body mass index (BMI) [Ratio] 37.12 kg/m2 Atif Lillian Other [facility] Other 12-08-2022 12:00-0400 Body weight 104.33 kg Atif Lillian Other [facility] Other 11-24-2022 11:30-0500 Body height 167.64 cm Atif Lillian Other [facility] Other 11-24-2022 11:30-0500 Body mass index (BMI) [Ratio] 37.93 kg/m2 Atif Lillian Other [facility] Other 11-24-2022 11:30-0500 Body weight 106.6 kg Atif Lillian Other [facility] Other Encounters Encounter Date Encounter Type Care Provider Facility Start: 10-03-2025 ambulatory Mary Escoto Facility: [facility] Start: 06-27-2025 End: 06-27-2025 ambulatory Rimma Kelly Facility:[facility] Laura salinas Start: 04-10-2025 End: 04-10-2025 Office outpatient visit 25 minutes Nancy Corrales MD Work Phone: [facility] Comment on above: Right epiretinal mem brane (Primary Dx); Type 2 diabetes mellitus without complication, without long-term current use of insulin ([facility] Nuclear sclerotic cataract of both eyes Start: 04-10-2025 End: 04-10-2025 ambulatory Ppww Ophth Imaging [facility] Comment on above: Right epiretinal mem brane; Type 2 diabetes mellitus without complication, without long-term current use of insulin ([facility]) Start: 03-28-2025 End: 03-28-2025 Lab Drop off Mary L Tigist [facility] Start: 03-28-2025 End: 03-28-2025 ambulatory RAG SHREDDER Mary L Tigist Facility:[facility] Start: 02-19-2025 End: 02-19-2025 Bamboo flowsfei Weston MD Work Phone: [facility] Start: 02-19-2025 End: 02-19-2025 Rupesh Weston MD Work Phone: [facility] Start: 02-19-2025 End: 02-19-2025 Office outpatient visit 15 minutes Sulma Weston MD Work Phone: [facility] Comment on above: Sensorineural hearin g loss (SNHL), bilateral (Primary Dx) Start: 02-19-2025 End: 02-19-2025 ambulatory SULMA WESTON Not Available Start: 01-30-2025 End: 01-30-2025 Rupesh Weston MD Work Phone: [facility] Start: 01-30-2025 End: 01-30-2025 Rupesh Weston MD Work Phone: [facility] Start: 01-30-2025 End: 01-30-2025 ambulatory SULMA WESTON Not Available Start: 01-30-2025 End: 01-30-2025 Office outpatient new 30 minutes Sulma Weston MD Work Phone: [facility] Comment on above: Bilateral tinnitus ( Primary Dx); Bilateral impacted cerumen Start: 10-25-2024 End: 10-25-2024 Office outpatient new 45 minutes Nancy Corrales MD Work Phone: [facility] Comment on above: Right epiretinal mem brane (Primary Dx); Nuclear sclerotic cataract of both eyes; Type 2 diabetes mellitus without complication, without long-term current use of insulin ([facility]) Start: 10-25-2024 End: 10-25-2024 Ophthalmology Imaging [facility] Comment on above: Other specified reti nal disorders Start: 10-02-2024 End: 10-02-2024 ambulatory Rimma Kelly Facility:[facility] Start: 09-28-2024 End: 09-28-2024 Lab Drop off Rimma Kelly [facility] Start: 09-28-2024 End: 09-28-2024 ambulatory Rimma Kelly Facility:[facility] Start: 09-20-2024 End: 09-20-2024 Emergency department patient visit [facility] ST[facility] Start: 06-26-2024 End: 06-26-2024 ambulatory Rimma Kelly Facility:[facility] Start: 03-27-2024 End: 03-27-2024 ambulatory Rimma Kelly Facility:[facility] Start: 01-03-2024 End: 01-03-2024 ambulatory Rimma Kelly Facility:[facility] Start: 09-05-2023 End: 09-05-2023 ambulatory Atif Childs Other [facility] Other Start: 09-05-2023 Office outpatient vi sit 15 minutes Atif Childs [facility] Start: 05-23-2023 End: 05-23-2023 ambulatory Atif Childs Other [facility] Other Start: 05-23-2023 Office outpatient vi sit 15 minutes Atif Childs [facility] Start: 03-30-2023 End: 03-30-2023 ambulatory Atif Childs Other [facility] Other Start: 03-30-2023 Office outpatient vi sit 15 minutes Atif Childs [facility] Start: 02-16-2023 End: 02-16-2023 ambulatory Atif Childs Other [facility] Other Start: 02-16-2023 Office outpatient vi sit 15 minutes Atif Childs [facility] Start: 01-19-2023 End: 01-19-2023 ambulatory Ana Maria Glasgow Other [facility] Other Start: 01-19-2023 Office outpatient vi sit 15 minutes Ana Maria Glasgow [facility] Start: 12-29-[address] TERRI ROJO . Facil ity:[facility] Start: 12-22-2022 End: 12-22-2022 ambulatory Atif Childs Other [facility] Other Start: 12-22-2022 Office outpatient vi sit 15 minutes Atif Childs [facility] Start: 12-22-2022 Telephone encounter Atif Childs [facility] Start: 12-08-2022 End: 12-08-2022 ambulatory Atif Childs Other [facility] Other Start: 12-08-2022 Postop follow up vis it related to original px Atif Childs [facility] Start: 11-24-2022 End: 11-24-2022 ambulatory Atif Childs Other [facility] Other Start: 11-24-2022 Office outpatient ne w 30 minutes Atif SARGENT [facility] Start: 11-21-2022 End: 11-21-[address] TERRI ROJO . Facility: Start: 09-07-2022 End: 09-08-[address] TERRI ROJO . Facility: Start: 01-13-2022 End: 01-14-[address] TERRI ROJO . Facility: Start: 01-08-2022 End: 01-09-[address] TERRI ROJO . Facility: Procedures Date Procedure Procedure Detail Performing Clinician Start: 04-10-2025 Computerized ophthal garo imaging retina Nancy Corrales MD Work Phone: Start: 04-10-2025 Diabetic retinal eye exam Nancy Corrales MD Work Phone: Start: 10-25-2024 End: 10-25-2024 Computerized ophthalmic imaging retina Nancy Corrales MD Work Phone: Start: 10-25-2024 Diabetic retinal eye exam Nancy Corrales MD Work Phone: Start: 03-20-2020 Cystoscopy and retro grade pyelography Rimma Kelly Comment on above: right Abdominal hysterectomy Darrell Kelly Appendectomy Rimma Kelly Colonoscopy Rimma Kelly Comment on above: 2009 normal Gallbladder structur e (body structure) Rimma Klely H/O: tubal ligation Rimma Mckeon oss Partial resection of colon S dione Kelly Repair of hip Rimma Kelly Comment on above: left Tonsillectomy and adenoidectomy Rimma Kelly Total knee replacement Darrell Kelly Comment on above: right left Plan of Treatment Date Care Activity Detail Author Start: 04-10-2026 Glaucoma screening Diabetic Op hthalmology Exam [facility] Start: 10-26-2025 Tobacco Screening Tobacco Screening [facility] Start: 10-25-2025 Glaucoma screening Diabetic Op hthalmology Exam [facility] Start: 10-11-2025 End: 10-11-2025 Patient encounter procedure 10/11/2025 2:10 PM EST Office Visit [facility] of [facility] [address] [place] [address] Nancy Corrales MD [address] [place] [address] [facility] of [facility] Start: 05-27-2025 Influenza vaccination N [facility] Start: 04-10-2025 End: 04-10-2025 Patient encounter procedure 04/10/2025 2:30 PM EDT Office Visit [facility] [address] [place] [address] Nancy Corrales MD [address] [place] [address] [facility] Start: 02-19-2025 End: 02-19-2025 Patient encounter procedure [facility] Comment on above: Arrived Start: 05-27-2024 COVID-19 Vaccine ( season) COVID-19 Vaccine ( season) [facility] Start: 05-27-2024 Influenza vaccination Influenza Vacc ine [facility] Start: 12-18-2015 Fall Risk Screening Fall Risk Screen ing [facility] Start: 2000 Administration of varicella zoster vaccine Zoster (Shingles) Vaccine (1 of 2) [facility] Start: 2000 Pneumococcal Vaccine : 65+ Years (1 of 1 - PCV) Pneumococcal Vaccine: 65+ Years (1 of 1 - PCV) [facility] Start: 1990 Screening for malign ant neoplasm of breast Mammogram [facility] Start: 1969 DTaP,Tdap and Td Vaccines (1 - Tdap) DTaP,Tdap and Td Vaccines (1 - Tdap) [facility] Start: 1968 Adult BMI Screening Adult BMI Screen ing [facility] Start: 1968 Diabetic foot examination Diabetic Foot Exam [facility] Start: 1962 Depression Screening Depression Scre ening [facility] Start: 1962 Tobacco Screening Tobacco Screening [facility] Start: 1950 Screening for malign ant neoplasm of colon [facility] Immunizations Immunization Date Immunization Notes Care Provider Fa cili 09-04-2022 SARS-CoV-2 (COVID-19 ) [id number] Rimma Kelly [facility] 09-03-2022 influenza virus vaccine, unspecified formulation Rimma Kelly [facility] 02-02-2022 SARS-CoV-2 mRNA (ilkopozbpdk-pphs-pxao ose) vaccine Rimma Kelly [facility] 08-26-2021 influenza virus vaccine, unspecified formulation Rimma Kelly [facility] 07-11-2021 SARS-CoV-2 (COVID-19 ) mRNA BNT-162b2 vax Rimma Kelly [facility] 12-03-2020 SARS-CoV-2 (COVID-19 ) mRNA BNT-162b2 K2 [employer] Rimma Kelly [facility] Comment on above: Result Comment: 2022: [id number] 11-11-2020 SARS-CoV-2 (COVID-19 ) mRNA BNT-162b2 vax Rimma Kelly [facility] Comment on above: Result Comment: 2022: [id number] NEGATED: Highlighted row has not occurred!06-26-2024 influenza virus vaccine, unspecified formulation Rimma Kelly [facility] [place] Payers Date Payer Category Payer Private Health Insurance [id number] 2019 Managed Care Other (unspecified) [facility] [id number] 2015 Medicare [id number] 1959 Medicare [id number] 2.16840.1.611046.19 1959 Unknown [id number] 2.840.1.666419.19 1950 Unknown [id number] 2.840.1.925676.3.579.2 .593 1950 Unknown [id number] 2.16840.1.477492.3.579.2 .593 1950 Unknown [id number] 2.16.840.1.791707.3.579.2 .593 1950 Unknown [id number] 2.16840.1.676802.3.579.2 .593 1950 Unknown [id number] 2.16840.1.916925.3.579.2 .593 1950 Unknown [id number] 2.16.840.1.815011.3.579.2 .727 1950 Unknown [id number] 2.16.840.1.236503.3.579.2 .727 1950 Unknown [id number] 2.16.840.1.963505.3.579.2 .727 1950 Unknown [id number] 2.16.840.1.319833.3.579.2 .72 1950 Unknown [id number] 2.16.840.1.448646.3.579.2 .727 1950 Unknown [id number] 2.16.840.1.834950.3.579.2 .72 1950 Unknown [id number] 2.16.840.1.822355.3.579.2 .727 1950 Unknown [id number] 2.16840.1.871490.3.579.2 .727 1950 Unknown [id number] 2.16.840.1.573625.3.579.2 .902 1950 Unknown [id number] 2.16.840.1.654643.3.579.2 .1286 1950 Unknown [id number] 2.16.840.1.192576.3.579.2 .1286 1950 Unknown [id number] 2.16.840.1.345269.3.579.2 .1286 1950 Unknown [id number] 2.16.840.1.541955.3.579.2 .1259 1950 Unknown [id number] 2.16.840.1.708898.3.579.2 .1259 1950 Unknown [id number] 2.16.840.1.750720.3.579.2 .1286 1950 Unknown [id number] 2.16.840.1.810372.3.579.2 .1286 1950 Unknown [id number] 2.16.840.1.107591.3.579.2 .727 1950 Unknown [id number] 2.16.840.1.926157.3.579.2 .727 1950 Unknown [id number] 2.16.840.1.814808.3.579.2 .727 1950 Unknown [id number] 2.16.840.1.495617.3.579.2 .727 Social History Date Type Detail Facility Unknown if ever smoked [facility] Other Start: 11-06-2020 End: 12-08-2020 Sex Assigned At [facility] Start: 07-16-2020 End: 06-26-2024 Tobacco smoking status Never smoked tobacco (finding) [facility] Comment on above: denies use. Tobacco smoking status [facility] Comment on above: denies use. Start: 07-16-2020 End: 01-30-2025 Tobacco use and exposure Smokeless tobacco non-user [facility] Start: 10-26-2024 End: 04-10-2025 Alcoholic beverage intake Ex-drinker (finding) [facility] Start: 11-06-2020 End: 12-08-2020 History of Social function [facility] Start: 1950 Sex assigned at Not on file [facility] Start: 05-01-2015 End: 02-28-2019 Sex Female (finding) [facility] Tobacco smoking stat us SCIS Tobacco smoking consumption unknown [facility] Sexual Orientation [facility] Medical Equipment Procedure Code Equipment Code Equipment Origin al Text Equipment Identifier Dates Misc DME Prescription, See Instructions, 100 strip(s), 3, True metrix test strips Test once a day Dx E 11.9, [employer] [facility], Supply, 167.6, cm, 02/02/23 13:51:00 EDT, Height/Length Dosing, 111.4, kg, 02/02/23 13:51:00 EDT, Weight Dosing Start: 02-15-2023 [facility] Prescription, See Instructions, 100 lancet(s), 3, Ultra thin unilet lancets use to test blood sugars once a day Dx E11.9, [facility], Supply, 167.6, cm, 02/02/23 13:51:00 EDT, Height/Length Dosing, 111.4, kg, 02/02/23 13:51:00 EDT, Weight Dosing Start: 02-15-2023 TEST STRIPS AND LANCETS, 1, SubCutaneous, Daily, 100 EA, 3, [facility], Supply, 167.6, cm, 02/02/23 13:51:00 EDT, Height/Length Dosing, 111.4, kg, 02/02/23 13:51:00 EDT, Weight Dosing Start: 02-15-2023 [facility] Prescription, See Instructions, 100 strip(s), 3, True metrix test strips Test once a day Dx E 11.9, [facility], Supply, 167.6, cm, 02/02/23 13:51:00 EDT, Height/Length Dosing, 111.4, kg, 02/02/23 13:51:00 EDT, Weight Dosing Start: 02-15-2023 [facility] Prescription, See Instructions, 100 lancet(s), 3, Ultra thin unilet lancets use to test blood sugars once a day Dx E11.9, [facility], Supply, 167.6, cm, 02/02/23 13:51:00 EDT, Height/Length Dosing, 111.4, kg, 02/02/23 13:51:00 EDT, Weight Dosing Start: 02-15-2023 TEST STRIPS AND LANCETS, 1, SubCutaneous, Daily, 100 EA, 3, [facility], Supply, 167.6, cm, 02/02/23 13:51:00 EDT, Height/Length Dosing, 111.4, kg, 02/02/23 13:51:00 EDT, Weight Dosing Start: 02-15-2023 Clinical Notes 02-24-2019 to 04-13-2025 Nancy Corrales MD - 04/10/2025 2:30 PM Matthew Weston MD - 02/19/2025 10:20 AM Matthew Weston MD - 01/30/2025 9:20 AM Alessandra Corrales MD - 10/25/2024 2:20 PM EST Note Date & Type Note Facility 04-13-2025 Note Right Eye Quality was good. Progression has been stable. Findings include abnormal foveal contour, epiretinal membrane, foveal thickening. Follow up actions include continue present management. Left Eye Quality was good. Progression has been stable. Findings include normal foveal contour. Follow up actions include continue present management. MANUALLY TRANSCRIBED RESULTS 04-13-2025 Note Right Eye Quality was good. Progression has been stable. Findings include abnormal foveal contour, epiretinal membrane, foveal thickening. Follow up actions include continue present management. Left Eye Quality was good. Progression has been stable. Findings include normal foveal contour. Follow up actions include continue present management. MANUALLY TRANSCRIBED RESULTS 04-10-2025 History of Present illness Narrative Daksha Corley had concerns including Right epiretinal membrane. HPI EP/ Patient here for a 6mo follow up. Patient states her vision has been stable since her last visit. She denies any flashes, floaters or any ocular discomfort. She denies using any ocular drops. BSL was 108 this morning A1c was 5.6 a couple of weeks ago per patient Last edited by Tran Marx on 04/10/2025 2:29 PM. ROS Positive for: Endocrine, Eyes Negative for: Constitutional, Gastrointestinal, Neurological, Skin, Genitourinary, Musculoskeletal, HENT, Cardiovascular, Respiratory, Psychiatric, Allergic/Imm, Heme/Lymph Last edited by Tran Marx on 04/10/2025 2:29 PM. No current outpatient medications on file. [...] morning. metFORMIN (GLUCOPHAGE) 500 mg tablet Take 2 tablets (1,000 mg total) by mouth daily with breakfast. multivit with calcium,iron,min (MULTIPLE VITAMIN, WOMENS ORAL) [...] a past medical history of Diabetes mellitus ([facility]) and Hypertension. She has a past surgical history that includes Tonsillectomy; Appendectomy; Tubal ligation; Hip surgery (Left, 2019); Knee surgery (Bilateral, 2009); Hysterectomy; Colon surgery (1981); and Cholecystectomy (07/17/2020). Base Eye Exam Visual Acuity (Snellen - Linear) Right Left Dist cc 20/40 -1 20/25 -2 Dist ph cc NI Patient does wear glasses for distance, does not have them with her today Tonometry (Tonopen, 2:39 PM) Right Left Pressure 11 13 Pupils Pupils Right PERRL Left PERRL Visual Macdonald (Counting fingers) Right Left Full Full Extraocular Movement Right Left Full Full Neuro/Psych Oriented x3: Yes Mood/Affect: Normal Dilation Both eyes: 1.0% Tropicamide, 2.5% Phenylephrine Hydrochloride @ 2:40 PM Slit Lamp and Fundus Exam Slit Lamp Exam Right Left Lids/Lashes Normal Normal Conjunctiva/Sclera White and quiet White and quiet Cornea Clear Clear Anterior Chamber Deep and quiet Deep and quiet Iris Round and reactive Round and reactive Lens 1+ Nuclear sclerosis 1+ Nuclear sclerosis Fundus Exam Right Left Posterior Vitreous Normal Normal Disc Normal Normal C/D Ratio 0.2 0.2 Macula Epiretinal membrane Normal Vessels Normal Normal Periphery Normal Normal Diagnosis 1. Right epiretinal membrane 2. Type 2 diabetes mellitus without complication, without long-term current use of insulin ([facility]) 3. Nuclear sclerotic cataract of both eyes ASSESSMENT/PLAN 1. Right epiretinal membrane (Primary) RIGHT EYE-stable -Criteria for surgical intervention discussed. -Continue observation -Monitor amsler grid -Testing done today reviewed with patient. - OCT, Retina - OU - Both Eyes; Future 2. Type 2 diabetes mellitus without complication, without long-term current use of insulin ([facility]) BOTH EYES- no ocular manifestation. -Last A1c: 5.6 -Stressed importance of good blood sugar control. -Continue follow up with PCP. - OCT, Retina - OU - Both Eyes; Future 3. Nuclear sclerotic cataract of both eyes BOTH EYES- stable. -Nuclear sclerotic cataract noted on examination. -Continue observation. Patient Education: Questions were encouraged to stated satisfaction from the patient. Discussed with patient that failure to follow up as recommended (appointment time, onset of new ocular symptoms) can lead to permanent loss of vision and/or blindness. Patient understands and agrees. Return Visit: 6mo. ERM with OCT Physician: Nancy Corrales MD Scribe: ЕЛЕНА Shane Scribe Statement: Scribed for and in the presence of Nancy Corrales MD by ЕЛЕНА Shane documented in this encounter [facility] 02-19-2025 History of Present illness Narrative Subjective Patient ID: Daksha Corley is a 74 y.o. female who presents for Tinnitus (Follow up audio Dr Bermudez 01/31/25) Audio reviewed and there is moderate cameron HFSNHL No family history on file. Active Ambulatory Problems Diagnosis Date Noted No Active Ambulatory Problems Resolved Ambulatory Problems Diagnosis Date Noted No Resolved Ambulatory Problems No Additional Past Medical History Past Surgical History: Procedure Laterality Date ADENOIDECTOMY APPENDECTOMY CHOLECYSTECTOMY COLECTOMY HIP ARTHROPLASTY Left HYSTERECTOMY KNEE ARTHROPLASTY Bilateral TONSILLECTOMY TUBAL LIGATION Allergies Allergen Reactions Hydromorphone Dizziness Other Reaction(s): Other (See Comments) Nalbuphine Other Reaction(s): Other (See Comments) Sulfa Antibiotics Other Reaction(s): Other (See Comments) Current Outpatient Medications on File Prior to Visit Medication Sig Dispense Refill doxylamine (Unisom) 25 MG tablet Take 25 mg by mouth as needed at bedtime gabapentin (Neurontin) 300 MG capsule Take 300 mg by mouth in the morning and 300 mg at noon and 300 mg in the evening. lisinopril-hydroCHLOROthiazide 20-12.5 MG tablet Take 1 tablet by mouth in the morning. meloxicam (Mobic) 15 MG tablet Take 15 mg by mouth in the morning. metFORMIN, OSM, (Fortamet) 500 MG 24 hr tablet Take 500 mg by mouth in the morning. Take with meals. oxybutynin XL (Ditropan-XL) 5 MG 24 hr tablet Take 5 mg by mouth in the morning. pantoprazole (ProtoNix) 40 MG EC tablet Take 40 mg by mouth in the morning. No current facility-administered medications on file prior to visit. Objective Last Recorded Vitals Vitals: 02/19/25 1025 BP: 90/64 Pulse: 88 ENT Physical Exam Constitutional Appearance: patient appears well-developed, well-nourished and well-groomed, Communication/Voice: communication appropriate for developmental age; vocal quality normal; Assessment/Plan Diagnoses and all orders for this visit: Sensorineural hearing loss (SNHL), bilateral documented in this encounter [facility] 01-30-2025 History of Present illness Narrative Subjective Patient ID: Daksha Corley is a 74 y.o. 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 Noted to have a cerumen impaction by audiology. Review of Systems All other systems reviewed and are negative. No family history on file. Active Ambulatory Problems Diagnosis Date Noted No Active Ambulatory Problems Resolved Ambulatory Problems Diagnosis Date Noted No Resolved Ambulatory Problems No Additional Past Medical History Past Surgical History: Procedure Laterality Date ADENOIDECTOMY APPENDECTOMY CHOLECYSTECTOMY COLECTOMY HIP ARTHROPLASTY Left HYSTERECTOMY KNEE ARTHROPLASTY Bilateral TONSILLECTOMY TUBAL LIGATION Allergies Allergen Reactions Hydromorphone Dizziness Other Reaction(s): Other (See Comments) Nalbuphine Other Reaction(s): Other (See Comments) Sulfa Antibiotics Other Reaction(s): Other (See Comments) Current Outpatient Medications on File Prior to Visit Medication Sig Dispense Refill doxylamine (Unisom) 25 MG tablet Take 25 mg by mouth as needed at bedtime gabapentin (Neurontin) 300 MG capsule Take 300 mg by mouth in the morning and 300 mg at noon and 300 mg in the evening. lisinopril-hydroCHLOROthiazide 20-12.5 MG tablet Take 1 tablet by mouth in the morning. meloxicam (Mobic) 15 MG tablet Take 15 mg by mouth in the morning. metFORMIN, OSM, (Fortamet) 500 MG 24 hr tablet Take 500 mg by mouth in the morning. Take with meals. oxybutynin XL (Ditropan-XL) 5 MG 24 hr tablet Take 5 mg by mouth in the morning. pantoprazole (ProtoNix) 40 MG EC tablet Take 40 mg by mouth in the morning. [DISCONTINUED] glipiZIDE (Glucotrol) 5 MG tablet Take 5 mg by mouth in the morning and 5 mg in the evening. Take before meals. No current facility-administered medications on file prior to visit. Objective Last Recorded Vitals Vitals: 01/30/25 0921 BP: 111/66 Pulse: 96 ENT Physical Exam Constitutional Appearance: patient appears well-developed, well-nourished and well-groomed, Head and Face Appearance: head appears normal and face appears atraumatic; Ear Ear Canals: bilateral ear canals impacted cerumen observed; Tympanic Membranes: right tympanic membrane normal; left tympanic membrane normal; Nose External Nose: nares patent bilaterally; external nose normal; Internal Nose: septum normal; Oral Cavity/Oropharynx Tongue: normal; Oral mucosa: normal; Hard palate: normal; Soft palate: normal; Tonsils: normal; Neck Neck: neck normal; neck palpation normal; Thyroid: thyroid normal; Respiratory Inspection: breathing unlabored; normal breathing rate; Auscultation: breath sounds are clear; Cardiovascular Inspection: extremities are warm and well perfused; no peripheral edema present; Auscultation: regular rate and rhythm; Patient ID: Daksha Corley is a 74 y.o. female. Procedures Cerumen was removed from the ears using binocular microscopy under micro with a pick Assessment/Plan Diagnoses and all orders for this visit: Bilateral tinnitus Bilateral impacted cerumen Ears debrided. F/U after audio documented in this encounter [facility] 10-26-2024 Note Right Eye Quality was good. 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 Patient states [...] a past medical history of Diabetes mellitus ([facility]) and Hypertension. She has a past surgical [...] complication, without long-term current use of insulin ([facility]) ASSESSMENT/PLAN 1. Right epiretinal membrane (Primary) RIGHT EYE -Criteria for surgical intervention discussed. Patient is asymptomatic without complaints. -Continue observation -Monitor amsler grid -Testing done today reviewed with patient. - [facility] - [place], [place] - Fundus Photos - OU - Both Eyes; Future - OCT, Retina - OU - Both Eyes; Future 2. Nuclear sclerotic cataract of both eyes BOTH EYES -Nuclear sclerotic cataract noted on examination. -Continue observation. 3. Type 2 diabetes mellitus without complication, without long-term current use of insulin ([facility]) BOTH EYES- no ocular manifestation. -Last A1c: [...] accurate and complete. documented in this encounter [facility] 06-26-2024 Note Patient Education Nutrition BMI [...] for Disease Control and Prevention: cdc.gov ? [place] Heart Association: heart.org ? National Heart, Lung, and Blood [place]: nhlbi.nih.gov This information is not intended to replace advice given to you by your health care provider. Make sure you discuss any questions you have with your health care provider. Document Revised: 06/02/2023 Document Reviewed: 05/26/2023 [employer] Patient Education ? 2023 [employer]. [facility] 03-27-2024 Note Patient Education Nutrition BMI [...] numbers. This can be done either in [place] ([place] or metric measurements. Note that charts and online BMI calculators are available to help you find your BMI quickly and easily without having to do these calculations yourself. To calculate your BMI in [place] ([place] measurements: 1. Measure your weight in [...] for Disease Control and Prevention: www.cdc.gov ? [place] Heart Association: www.heart.org ? National Heart, Lung, and Blood [place]: www.nhlbi.nih.gov Summary ? Body mass index (BMI) is a number that is calculated from a person's weight and height. ? BMI may help estimate how much of a person's weight is composed of fat. BMI can help identify those who may be at higher risk for certain medical problems. ? BMI can be measured using [place] measurements or metric measurements. ? BMI charts are used to identify whether you are underweight, normal weight, overweight, or obese. This information is not intended to replace advice given to you by your health care provider. Make sure you discuss any questions you have with your health care provider. Document Revised: 06/04/2020 Document Reviewed: 04/11/2020 [employer] Patient Education ? 2022 [employer]. [facility] 09-05-2023 Evaluation note Encounter Date Diagnosis [...] for refills if the medication is helping. [employer] Other 08-28-2023 Evaluation note* Encounter Date Diagnosis [...] - M76.61) Apr, Neuropathy (ICD-10 - G62.9) [employer] Other 07-05-2023 Evaluation note* Encounter Date Diagnosis [...] - M76.61) Mar, Neuropathy (ICD-10 - G62.9) [employer] Other 05-24-2023 Evaluation note* Encounter Date Diagnosis [...] as documented in the electronic medical record. [employer] Other 04-26-2023 Evaluation note* Encounter Date Diagnosis [...] in the office today and providing supervision. [employer] Other 03-29-2023 Evaluation note* Encounter Date Diagnosis Assessment Notes Treatment Notes Treatment Clinical Notes Nov, Rupture of left Achilles tendon, subsequent encounter (ICD-10 - S86.012D) Nov, Nat Crooks returns w ith left ankle Achilles tendon [...] exercise. We discussed starting to peel one sheet layer of the heel lift each week. Continue with use of boot at this time. Continue with use of walker as needed. A prescription for physical therapy was provided today. [facility] [employer] Other 03-15-2023 Evaluation note* Encounter Date Diagnosis Assessment Notes Treatment Notes Treatment Clinical Notes Nov, Rupture of left Achilles tendon, subsequent encounter (ICD-10 - S86.012D) Nov, Nat Crooks returns w ith left ankle Achilles tendon [...] understanding and is agreeable to treatment plan. [employer] Other 03-01-2023 Evaluation note* Encounter Date Diagnosis [...] in office today. Prior medical notes from [facility] and history have been reviewed. At her [...] as documented in the electronic medical record. [employer] Other 06-01-2019 History general Narrative - Reported* Type Description Date Medical History Borderline Type 2 Diabetes Medical History Hypertension Medical History kidney Stones 02/2019 Surgical History Partial Bowel Removal 37 years ago Surgical History Tonsil & Adnoids Surgical History Appendectomy 1971 Surgical History Hysterectomy with Bladder Suspe nsion 1988 Surgical History Tubal Ligation Surgical History Bilateral Knee Replacement 2009 Surgical History [facility] Hospitalization History Pneumonia 09/2017 [employer] Other Evaluation + Plan note Future Appointments Appointment Date:10/02/2024 11:30:00 AM Scheduled Provider:Rimma Kelly MD Location:[facility] Appointment Type: Open Appointment Date:06/27/2025 02:30:00 PM Scheduled Provider: Location:[facility] Appointment Type: Medicare Wellness Subsequent Future Scheduled Tests Radiology* US Aorta 01/03/24 [facility] Evaluation + Plan note Future Appointments Appointment Date:06/27/2025 02:40:00 PM Scheduled Provider:Mary Trotter Location:[facility] Appointment Type: Open [facility] evaluation noteNo InformationNort [employer] Other evaluation note* Diagnosis Right epiretinal membrane- Primary Macular puckering of retina Nuclear sclerotic cataract of both eyes Senile nuclear sclerosis Type 2 diabetes mellitus without complication, without long-term current use of insulin ([facility]) Other specified retinal disorders Other specified retinal disorders documented [facility]* Diagnosis Other specified retinal disorders documented [facility]* Diagnosis Bilateral tinnitus- Primary Bilateral impacted cerumen Impacted cerumen documented in this encounter [facility]* Diagnosis Sensorineural hearing loss (SNHL), bilateral- Primary documented in this encounter [facility]* Diagnosis Right epiretinal membrane- Primary Macular puckering of retina Type 2 diabetes mellitus without complication, without long-term current use of insulin ([facility]) Nuclear sclerotic cataract of both eyes Senile nuclear sclerosis Right epiretinal membrane Macular puckering of retina Type 2 diabetes mellitus without complication, without long-term current use of insulin ([facility]) documented in this encounter [facility]* Diagnosis Right epiretinal membrane Macular puckering of retina Type 2 diabetes mellitus without complication, without long-term current use of insulin ([facility]) [facility] N[facility] No data available for this section [facility] Hospital Discharge instructions No data available for this section [facility] Instructions* Attachments The following attachments cannot be sent through Care Everywhere. * Cataracts (Burundian) [facility] System[facility]ructionsNot on file documented in this [facility] SystemInstructionsNot on file documented in [facility] SystemInstructionsNot on file documented in [facility] SystemProgress note No data available for this section [facility] Summary Purpose Family History No Family [...] section and content) DATE CREATED AUTHOR 03/20/2022 [facility] DATE CREATED AUTHOR AUTHOR'S ORGANIZ ATION 12/31/2022 [facility] [place] [facility] DATE CREATED AUTHOR AUTHOR'S ORGANIZ ATION 10/05/2024 [facility] DATE CREATED AUTHOR AUTHOR'S ORGANIZ ATION 10/06/2024 [facility] DATE CREATED AUTHOR AUTHOR'S ORGANIZ ATION 10/16/2024 [facility] DATE CREATED AUTHOR AUTHOR'S ORGANIZ ATION 10/27/2024 [facility] DATE CREATED AUTHOR AUTHOR'S ORGANIZ ATION 02/22/[address] [facility] DATE CREATED AUTHOR AUTHOR'S ORGANIZ ATION 04/14/2025 [facility] DATE CREATED AUTHOR AUTHOR'S ORGANIZ ATION 07/01/2025 [facility] DATE CREATED AUTHOR AUTHOR'S ORGANIZ ATION 07/02/2025 [facility] REASON FOR VISIT (unrecogniz ed section and content) Reason Comments Diabetic Eye Exam Specialty Diagnoses / Procedures Referred By Traci sterling Referred To Contact Ophthalmology Diagnoses Normal retina on examination of eye GeovanivinnyCarlos, OD [address] [place] [address] Phone: tel: fax: Nancy Corrales MD [address] [facility] [address] [place] [address] Phone: tel: fax: Referral ID Status Reason Start Date Expiration Date V isits Requested Visits Authorized [id number] Closed Specialty Services Required 10/24/2024 10/24/2025 1 1 Reason Comments Cerumen Impaction Reason Comments Tinnitus Follow up audio Dr Ok randolph 01/31/25 Reason Comments Right epiretinal membrane Patient Care team informatio n (unrecognized section and content) Beauty Sales Advisor Relationship Specialty Start Date End Date Rimma Kelly MD [address] [place] [address] PCP - General Family Medicine 10/25/24 Beauty Sales Advisor Relationship Specialty Start Date End Date Rimma Kelly MD [address] [place] [address] PCP - General Family Medicine 10/25/24 Beauty Sales Advisor Relationship Specialty Start Date End Date Rimma Kelly MD [address] [place] [address] PCP - General Family Medicine 01/22/25 Beauty Sales Advisor Relationship Specialty Start Date End Date Rimma Kelly MD [address] [place] [address] PCP - General Family Medicine 01/22/25 Beauty Sales Advisor Relationship Specialty Start Date End Date Rimma Kelly MD [address] [place] [address] PCP - General Family Medicine 01/22/25 Beauty Sales Advisor Relationship Specialty Start Date End Date Rimma Kelly MD [address] [place] [address] PCP - General Family Medicine 10/25/24 Beauty Sales Advisor Relationship Specialty Start Date End Date Rimma Kelly MD [address] [place] [address] PCP - General Family Medicine 10/25/24 FOR [...] BE BASED ON THE PRIMARY CLINICAL RECORDS. [facility]. provides no warranty or guarantee of the accuracy or completeness of information in this document.
--- NOTE | 2025-07-05 12:38 | XR_ITS ---
[address] [address] Patient Name: YEYS DELGADO MRN: [id number] date: 1950 Sex: F Assigned Patient Location: [facility] Current Patient Location: [facility] Accession/Order Number: [id number] Exam Date: 07/05/2025 12:43 Report Date: 07/05/2025 14:14 At the request of: ELISABETH LEA Procedure: XR hip RT min 2V RIGHT HIP - 2 views: CLINICAL HISTORY: hip pain COMPARISON: None FINDINGS: Moderate degenerative changes of the right hip without acute bony process. XR/XR hip RT min 2V IMPRESSION: MODERATE DEGENERATIVE CHANGES OF THE RIGHT HIP WITHOUT ACUTE BONY PROCESS.. Impression dictated by: Luis Benavides Jr., D.O. 07/05/2025 2:14 PM Dictation Location: [place] [address] Electronically authenticated by: [id number] Y Date: 07/05/2025 14:14
== END 2025-07-05 12:30 | disposition home or self-care (01) ==
LOC: RAD 12:30
PROVIDERS: PCP Nurse Practitioner; Visit Provider Nurse Practitioner
DX: M25.551 Pain in right hip (principal); M16.11 Unilateral primary osteoarthritis, right hip
CPT/HCPCS: 73502

== ENCOUNTER 2025-07-10 11:04 | Outpatient (OUT) | payer MEDICARE, SELFPAY ==
--- OUTSIDE RECORDS SUMMARY | 2025-07-10 11:06 | XMS_ITS | Clinical Summary ---
Author Organization [facility] Address [address] [place], [place] [address] Care Team Providers Care Rubber Ball Finisher Name Role Phone No, Physician Primary Care Provider Unavailabl e Allergies Active Allergy Reactions Criticality Noted Date Comments Hydromorphone Other (See Comments) 09/20/2024 Nalbuphine Other (See Comments) 09/20/2024 Sulfa (Sulfonamide Antibiotics) Other (See Comments) 09/20/2024 Medications lisinopriL-hydr ochlorothiazide (PRINZIDE,ZESTO RETIC) 20-12.5 mg per tablet Take 1 (one) tablet by mouth daily . Active metFORMIN (FORTAMET) 500 MG (OSM) 24 hr tablet Take 1 (one) tablet (500 mg total) by mouth daily with breakfast . Active oxyBUTYnin (DITROPAN) 5 MG tablet Take 1 (one) tablet (5 mg total) by mouth 3 (three) times a day . Active meloxicam (MOBIC) 15 MG tablet Take 1 (one) tablet (15 mg total) by mouth daily . Active glipiZIDE (GLUCOTROL) 5 MG tablet Take 1 (one) tablet (5 mg total) by mouth 2 (two) times a day before meals . Active pantoprazole (PROTONIX) 40 MG tablet Take 1 (one) tablet (40 mg total) by mouth daily . Active gabapentin (NEURONTIN) 300 MG capsule Take 1 (one) capsule (300 mg total) by mouth every 8 (eight) hours . Active Social History Tobacco Use Types Packs/Day Years Used Date Smoking Tobacco: Never Smokeless Tobacco: Never Tobacco Cessation:Counseling Given: Not Answered Alcohol Use Standard Drinks/Week Comments Not Currently 0 (1 standard drink = 0.6 oz pur e alcohol) Comments Unknown Sex and Gender Information Value Date Recorded Sex Assigned at Not on file Legal Sex Female 2:03 PM EST Gender Identity Not on file Sexual Orientation Not on file Last Filed Vital Signs Vital Sign Reading Time Taken Comments Blood Pressure 135/95 09/20/2024 2:42 PM EST Pulse 90 09/20/2024 2:42 PM EST Temperature 36.4 C (97.5 F) 09/20/2024 2:42 PM EST Respiratory Rate 18 09/20/2024 3:33 PM EST Oxygen Saturation 94% 09/20/2024 2:46 PM EST Inhaled Oxygen Concentration - - Weight 93 kg (205 lb) 09/20/2024 2:46 PM EST Height 165.1 cm (5' 5 ) 09/20/2024 2:46 PM EST Body Mass Index 34.11 09/20/2024 2:46 PM EST Plan of Treatment Health Maintenance Due Date Last Done Comments A1C 1950 CT Colonography 1950 Colonoscopy 1950 Colorectal Cancer Screening/Monitoring 1950 Dexa Scan 1950 Fecal DNA 1950 Fecal occult blood test (FOBT,FIT) 1950 Tetanus: Every 10yrs 1950 Medicare Wellness Visit 1953 Diabetic Eye Exam 1960 Diabetic Foot Exam 1960 Urine (micro)albumin/creatin ine ratio - Diabetes 1960 Depression Screening/Follow- Up (PHQ-2/9) 1962 Hepatitis C Screening 1968 Mammogram 1990 Flexible sigmoidoscopy 2000 Pneumococcal Vaccine: Age 50 + (1 of 1 - PCV) 2000 Zoster Vaccines (1 of 2) 2000 Falls Risk Assessment 12/18/2015 COVID-19 Vaccine (2024-2 6 season) 2025 10/06/2023, 09/04/2022, 02/02/2022, Additional history exists Influenza Vaccine (#1) 2025 09/03/2022, 2020 eGFR Diabetes 09/20/2025 09/20/2024, 09/20/2024 Respiratory Syncytial Virus Immunization: Risk, 60-74 Risk, or 75+ (1 - 1-dose 75+ series) 2025 Procedures Procedure Name Priority Date/Time Associated Diagnosis Comments CHEM 7 Add-On 09/20/2024 2:49 PM EST from Last 3 Months or Most Recently Relevant to Health Maintenance Results * (ABNORMAL) Chem 7 (09/20/2024 2:49 PM EST) Sodium 135 135 - 145 mmol/L 09/20/2024 4:06 PM EST [facility] Potassium 4.8 3.5 - 5.1 mmol/L 09/20/2024 4:06 PM EST [facility] Chloride 95(L) 98 - 108 mmol/L 09/20/2024 4:06 PM EST [facility] Bicarbonate 23 21 - 32 mmol/L 09/20/2024 4:06 PM EST [facility] Anion Gap 22(H) 10 - 20 mmol/L 09/20/2024 4:06 PM EST [facility] Glucose 107(H) 65 - 99 mg/dL 09/20/2024 4:06 PM EST [facility] BUN 21 8 - 25 mg/dL 09/20/2024 4:06 PM EST [facility] Creatinine 1.06 0.60 - 1.10 mg/dL 09/20/2024 4:06 PM EST [facility] eGFR 56(L) >=60 mL/min/1.7 3 m2 09/20/2024 4:06 PM EST [facility] Comment: Estimated GFR was calculated using the 2020 CKD-EPI creatinine equation. Estimated GFR was calculated using the 2020 CKD-EPI creatinine equation. BUN/Creatinine Ratio 19.8 10.0 - 20.0 09/20/2024 4:06 PM EST [facility] Blood BLOOD SPECIMEN / Unknown Venipuncture / Unknown 09/20/2024 2:49 PM EST 09/20/2024 2:52 PM EST [facility] - 09/20/2024 4:06 PM EST [facility] Laboratory Services has implemented the eGFR calculation approach that does not have a coefficient for race that conforms to the NKF-ASN Task Force Recommendations. us Fallon Aguilar ACCOUNTING TECHNICIAN LAB BLOOD ORDERABLES Final Result [facility] [address] [place] [address] from Last 3 Months or Most Recently Relevant to Health Maintenance Insurance MEDICARE PART A & B PART A CLAIMS [address] [address] [place] [address] Care Teams Rubber Ball Finisher Relationship Specialty Start Date End Date No, Physician [facility] PCP - General 09/20/24
--- OUTSIDE RECORDS SUMMARY | 2025-07-10 11:06 | XMS_ITS | Encounter Summary ---
Author Organization [email or web address] [facility] Address [id number] [address] [place] [address] Care Team Providers Care Senior Sales Manager Name Role Phone Deven Bronson MD Primary Care Provider [phone] Encounter Details Date Type Department Care Team (Late st Contact Info) Description 12/15/2020 Telephone [facility] [address] [place] [id number] Johanna Barboza RMA Social History Tobacco Use Types Packs/Day Years Used Date Smoking Tobacco: Never Smokeless Tobacco: Never Alcohol Use Standard Drinks/Week Comments Not Currently 0 (1 standard drink = 0.6 oz pur e alcohol) Childcare Answer Date Recorded Childcare Unknown 07/15/2020 Employment Answer Date Recorded Employment Unknown 07/15/2020 Purpose - Life Answer Date Recorded Purpose and direction in life Unknown Comments Unknown Sex and Gender Information Value Date Recorded Sex Assigned at Not on file Legal Sex Female 12:10 PM EDT Gender Identity Not on file Sexual Orientation Not on file COVID-19 Exposure Response Date Recorded In the last month, have you been in contact with someone who was confirmed or suspected to have Coronavirus / COVID-19? No / Unsure 12/08/2020 12:58 PM EDT documented as of this encounter Miscellaneous Notes * Telephone Encounter - HEATHER Mallory - 12/15/2020 10:04 AM EDT Daksha called into the office with some questions about her upcoming surgery, EGD. She was wonderingif she could get a call back or if she needs an appointment. She was wondering, what will happen when the surgery is performed, if you'll take care of or correct whatever is not normal. Thanks. HEATHER Mallory 12/15/20 1013 documented in this encounter Plan of Treatment Upcoming Encounters Date Type Department Care Team (Late st Contact Info) Description 10/11/2025 2:10 PM EST Office Visit [facility] Department of [facility] [address] [facility] [address] [place] [address] Enrique Corrales MD [address] [facility] [address] [place] [address] documented as of this encounter Visit Diagnoses Not on filedocumented in this encounter Care Teams Senior Sales Manager Relationship Specialty Start Date End Date Deven Bronson MD [address] [place] [address] PCP - General Family Medicine 10/25/24 documented as of this encounter
--- OUTSIDE RECORDS SUMMARY | 2025-07-10 11:06 | XMS_ITS | Clinical Summary ---
Author Organization [facility] Address [address] [place] [address] Phone Care Team Providers Care Limo Driver Name Role Phone Shantel King MD Primary Care Provider [phone] Social History Tobacco Use Types Packs/Day Years Used Date Smoking Tobacco: Never Assessed Comments Unknown Sex and Gender Information Value Date Recorded Sex Assigned at Not on file Legal Sex Female 11:29 AM EST Gender Identity Not on file Sexual Orientation Not on file Plan of Treatment Not on file Care Teams Limo Driver Relationship Specialty Start Date End Date Shantel King MD [address] [place] [address] PCP - General 03/17/22
--- OUTSIDE RECORDS SUMMARY | 2025-07-10 11:06 | XMS_ITS | Encounter Summary ---
Author Organization [facility] tem Address [id number] [address] [place] [address] Care Team Providers Care Biofuels Product Manager Name Role Phone Deven Bronson MD Primary Care Provider [phone] Encounter Details Date Type Department Care Team (Late Contact Info) Description 01/29/2016 [facility] [address] [address] [place] [phone] Arminda Oh CMA Social History Tobacco Use Types Packs/Day Years Used Date Smoking Tobacco: Never Assessed Comments Unknown Sex and Gender Information Value Date Recorded Sex Assigned at Not on file Legal Sex Female 12:10 PM EDT Gender Identity Not on file Sexual Orientation Not on file documented as of this encounter Plan of Treatment Upcoming Encounters Date Type Department Care Team (Late Contact Info) Description 10/11/2025 2:10 PM EST Office Visit [facility] Department of [facility] [address] [facility] [address] [place] [address] Enrique Corrales MD [address] [facility] [address] [place] [address] documented as of this encounter Visit Diagnoses Not on filedocumented in this encounter Care Teams Biofuels Product Manager Relationship Specialty Start Date End Date Deven Bronson MD [address] [facility] [place] [address] PCP - General Family Medicine 10/25/24 documented as of this encounter
--- OUTSIDE RECORDS SUMMARY | 2025-07-10 11:06 | XMS_ITS | Clinical Summary ---
Author Organization [facility] Address [address] [place] [address] Care Team Providers Care Cardiology Rn Name Role Phone Deven Bronson MD Primary Care Provider [phone] Allergies Active Allergy Reactions Criticality Noted Date Comments Hydromorphone Dizziness Medium 12/08/2020 Other Reaction(s): Other (See Comments) Nalbuphine 07/16/2020 Other Reaction(s): Other (See Comments) Sulfa Antibiotics 07/16/2020 Other Reaction(s): Other (See Comments) Medications doxylamine (Unisom) 25 MG tablet Take 25 mg by mouth as needed at bedtime Active gabapentin (Neurontin) 300 MG capsule Take 300 mg by mouth in the morning and 300 mg at noon and 300 mg in the evening. Active lisinopril-hydr oCHLOROthiazide 20-12.5 MG tablet Take 1 tablet by mouth in the morning. Active meloxicam (Mobic) 15 MG tablet Take 15 mg by mouth in the morning. Active metFORMIN, OSM, (Fortamet) 500 MG 24 hr tablet Take 500 mg by mouth in the morning. Take with meals. Active oxybutynin XL (Ditropan-XL) 5 MG 24 hr tablet Take 5 mg by mouth in the morning. Active pantoprazole (ProtoNix) 40 MG EC tablet Take 40 mg by mouth in the morning. Active Active Problems No known active problems Family History Relation Name Status Comments Father Mother Social History Tobacco Use Types Packs/Day Years Used Date Smoking Tobacco: Never Smokeless Tobacco: Never Tobacco Cessation:Counseling Given: Not Answered Alcohol Use Standard Drinks/Week Comments Not Currently 0 (1 standard drink = 0.6 oz pur e alcohol) Comments Unknown Sex and Gender Information Value Date Recorded Sex Assigned at Not on file Legal Sex Female 6:59 PM EDT Gender Identity Not on file Sexual Orientation Not on file Last Filed Vital Signs Vital Sign Reading Time Taken Comments Blood Pressure 90/64 02/19/2025 10:25 AM EDT Pulse 88 02/19/2025 10:25 AM EDT Temperature - - Respiratory Rate - - Oxygen Saturation - - Inhaled Oxygen Concentration - - Weight 93.9 kg (207 lb) 02/19/2025 10:25 AM EDT Height 167.6 cm (5' 6 ) 02/19/2025 10:25 AM EDT Body Mass Index 33.41 02/19/2025 10:25 AM EDT Plan of Treatment Health Maintenance Due Date Last Done Comments CT Colonography 1950 Colonoscopy 1950 Colorectal Cancer Screening 1950 FIT-DNA 1950 FIT 1950 FOBT 1950 Sigmoidoscopy 1950 Mammogram 1990 Pneumococcal Vaccine: 65+ Ye ars (1 of 1 - PCV) 2000 Influenza Vaccine (#1) 2025 09/03/2022, 2020 Insurance MEDICARE [facility] Care Teams Cardiology Rn Relationship Specialty Start Date End Date Deven Bronson MD [address] [place] [address] PCP - General Family Medicine 01/22/25
--- NOTE | 2025-07-10 11:08 | MM_ITS ---
Patient Name: YESY DELGADO MR#: [id number] : 1950 Exam Date: 07/10/2025 Ordering Doctor: ELISABETH LEA . RADIOLOGY REPORT PROCEDURE: MM TOMOSYNTHESIS SCREENING BI COMPARISON: MM TOMOSYNTHESIS SCREENING BI, 07/05/2024. MG MAMM SCREEN 3D THOMAS CAD, 01/08/2022. MG MAMM THOMAS SCRN W CAD DIG, 05/09/2012. INDICATIONS: screening Calculator Name NCI Breast Cancer Risk Assessment Tool 5 Year Breast Cancer Risk 1.70% Lifetime Breast Cancer Risk 4.00% Personal Breast Cancer No Personal Ovarian Cancer No Treatments None Family Cancers None LOCATION: [facility] BREAST COMPOSITION: There are scattered areas of fibroglandular density. FINDINGS: DIAGNOSTIC CATEGORY 1--NEGATIVE. RIGHT BREAST: No significant suspicious finding. LEFT BREAST: No significant suspicious finding. RECOMMENDATIONS: ROUTINE MAMMOGRAM AND CLINICAL EVALUATION IN 12 MONTHS. Dictated by: Catracho Maurer MD on 07/10/2025 at 15:09 Approved by: Catracho Maurer MD on 07/10/2025 at 15:11
--- OUTSIDE RECORDS SUMMARY | 2025-07-10 11:19 | XMS_ITS | CCD ---
Author Organization [facility] [place] [facility] Team Providers Care Framework Developer Name Role Phone Atif Childs Unavailable ROJO [...] ., DR TERRI Lawson Primary Care Unavailable ULBNA, DR PLACIDO Mckeon Consulting Unavailable ROJO ., DR TERRI Lawson Admitting Unavailable ROJO ., DR TERRI Lawson Attending Unavailable ROJO ., DR TERRI Lawson Consulting Unavailable ROJO ., DR TERRI Lawson Primary Care Unavailable LUBNA, DR PLACIDO Mckeon Consulting Unavailable Ana Maria Glasgow Unavailable Rimma Kelly Primary Care Physician [phone] Rimma Kelly Attending Unavailable Rimam Kelly Attending Unavailable Rimma Kelly Attending Unavailable [...] Admitting Unavailable Rimma Kelly. Attending Unavailable Tigist, ART EDITOR Mary L Attending Unavailable Tigist, ART EDITOR Mary L Attending Unavailable Tigist, ART EDITOR Mary L Admitting Unavailable Tigist, ART EDITOR Mary L Attending Unavailable Tigist, Mary L Admitting Unavailable Tigist, Mary L Attending Unavailable Tigist, Mary L Attending Unavailable Allergies Allergy Classification Reported Allergen(s) Allergy Type Date of Onset Reaction(s) Facility (15 sources) Nalbuphine; Translations: [Nubain] Drug Allergy Clouded consciousness (finding) [facility] (9 sources) Sulfonamides (Antibiotic) Propensity to adverse reactions Unknown aWhere Other (1 source) bee venom Drug allergy (disorder) [facility] (4 sources) HYDROmorphone; Translations: [Dilaudid] Drug Allergy 07-16-20 [facility] (1 source) Sulfonamides (Antibiotic) Drug allergy (disorder) [facility] (8 sources) celecoxib; Translations: [celecoxib] Drug Allergy 04-10-20 [facility] (8 sources) Clarithromycin; Translations: [clarithromycin] Drug Allergy 04-10-20 [facility] (16 sources) HYDROmorphone; Translations: [hydromorphone] Drug Allergy 12-09-19 21 Clouded consciousness (finding), Dizziness [facility] (19 sources) Nalbuphine; Translations: [nalbuphine] Drug Allergy 07-16-20 20 Unknown (qualifier value), Clouded consciousness (finding) [facility] (8 sources) rofecoxib; Translations: [rofecoxib] Drug Allergy 04-10-20 [facility] (5 sources) sulfabenzamide / Sulfacetamide / sulfathiazole; Translations: [triple sulfa topical] Drug Allergy Unknown (qualifier value) [facility] (8 sources) Sulfonamides (Antibiotic); Translations: [SULFA (SULFONAMIDE ANTIBIOTICS)] Propensity to adverse reactions to drug (disorder) 07-16-20 [facility] (6 sources) Sulfonamides (Antibiotic) Drug Intolerance 07-16-20 [facility] Medications Current Medications Medication Drug Class(es) Dates Sig (Normalized) Sig (Original) 0.25 MG, 0.5 MG Dose 3 ML semaglutide 0.68 MG/ML Pen Injector [Ozempic] (1 source) Start: 03-27-2024 Ozempic 2 mg/3 mL (0.25 mg or 0.5 mg dose) subcutaneous solution 0.25 mg, SubCutaneous, qWeek, # 3 mL, Refills(s) 0, Pharmacy: [facility], 165, cm, 03/27/24 10:13:00 EDT, Height/Length [...] Daily, # 90 tab(s), Refills(s) 3, Pharmacy: [facility], 167.6, cm, 02/02/23 13:51:00 EDT, Height/Length [...] pressure 1-2 hours after taking BP medication., [facility], Supply Start Date: 12/22/22 Status: Ordered Quantity: 1.0 Unit: EA Repeat number: 1 Start: 12-22-2022 Blood pressure cuff-wrist Blood pressure cuff-wrist, See Instructions, 1 EA, 0, As Directed-Check blood pressure 1-2 hours after taking BP medication., [facility], Supply Start Date: 12/22/22 Status: Ordered [...] lunch, # 360 EA, Refills(s) 0, Pharmacy: [facility], 165, cm, 10/02/24 11:39:00 EST, Height/Length Dosing, 97, kg, 10/02/24 11:39:00 EST, Weight Dosing Start Date: 10/03/24 Status: Ordered Quantity: 360.0 Unit: EA Repeat number: 1 Start: 07-24-2024 take 1 capsule by [facility] twice daily after lunch gabapentin 300 mg Cap 600 mg = 2 cap(s), Oral, BID, 2 at night 1 in the am and one after lunch, # 360 cap(s), Refills(s) 0, Pharmacy: [facility], 165, cm, 06/26/24 15:02:00 EDT, Height/Length Dosing, 103.7, kg, 06/26/24 15:02:00 EDT, Weight Dosing Start Date: 07/24/24 Status: Ordered Start: 09-05-2023 take 1 capsule by [facility] every eight hours Gabapentin 100 MG 1 capsule Orally three times a day for 30 days Aug, Active glipiZIDE 5 mg oral tablet (4 sources) Sulfonylurea Start: 10-04-2023 End: 01-30-2025 take 1 tablet by mouth twice daily glipiZIDE 5 mg Tab 5 mg = 1 tab(s), Oral, BID, # 180 tab(s), Refills(s) 3, Pharmacy: [facility], 165, cm, 10/04/23 11:01:00 EST, Height/Length Dosing, 107, kg, 10/04/23 11:01:00 EST, Weight Dosing Start Date: 10/04/23 Status: Ordered hydroCHLOROthiazide 12.5 mg / lisinopril 20 mg oral tablet (20 sources) Thiazide Diuretic, Angiotensin Converting Enzyme Inhibitor Start: 10-02-2024 hydrochlorothiazid e-lisinopril 12.5 mg-20 mg Tab 1 tab(s), Oral, Daily, 180 tab(s), Refill(s) 3, [facility], 165, cm, 10/02/24 11:39:00 EST, Height/Length Dosing, 97, kg, 10/02/24 11:39:00 EST, Weight Dosing Start Date: 10/02/24 Status: Ordered Quantity: 180.0 Unit: tab(s) Repeat number: 4 Start: 10-04-2023 hydrochlorothi azide-lisinopril 12.5 mg-20 mg Tab 1 tab(s), Oral, BID, 180 tab(s), Refill(s) 3, [facility], 165, cm, 10/04/23 11:01:00 EST, Height/Length [...] BID, # 360 tab(s), Refills(s) 1, Pharmacy: [facility], 165, cm, 10/02/24 11:39:00 EST, Height/Length Dosing, 97, kg, 10/02/24 11:39:00 EST, Weight Dosing Start Date: 10/02/24 Status: Ordered Quantity: 360.0 Unit: tab(s) Repeat number: 2 Start: 07-24-2024 take 2 tablets by [facility] twice daily Glucophage XR 500 mg Tab-ER 1,000 mg = 2 tab(s), Oral, BID, # 360 tab(s), Refills(s) 1, Pharmacy: [facility], 165, cm, 06/26/24 15:02:00 EDT, Height/Length Dosing, 103.7, kg, 06/26/24 15:02:00 EDT, Weight Dosing Start Date: 07/24/24 Status: Ordered take 2 tablets by [facility] once daily at breakfast metFORMIN (GLUCOPHAGE) [...] DAILY, # 90 tab(s), Refills(s) 3, Pharmacy: [facility], 165, cm, 10/02/24 11:39:00 EST, Height/Length Dosing, 97, kg, 10/02/24 11:39:00 EST, Weight Dosing Start Date: 10/02/24 Status: Ordered Quantity: 90.0 Unit: tab(s) Repeat number: 4 Start: 09-21-2024 take 1 tablet by braydon th once daily oxybutynin 5 mg ER Tab See Instructions, TAKE 1 TABLET BY MOUTH DAILY, # 90 tab(s), Refills(s) 3, Pharmacy: [facility], 165, cm, 06/26/24 15:02:00 EDT, Height/Length [...] Daily, # 90 tab(s), Refills(s) 3, Pharmacy: [facility], 167.6, cm, 02/02/23 13:51:00 EDT, Height/Length [...] left hip] Chronic Other aftercare (1 source) shelter (current) use of oral hypoglycemic drugs; Translations: [NUT TIGHTENER USE ORAL HYPOGLYCEMIC DX] Onset: 11-22-19 Episodic Other aftercare (1 source) 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 gabapentin, 300 mg = 1 cap(s), Oral, Bedtime, # 90 cap(s), Refills(s) 1, Pharmacy: [facility], 165, cm, 06/27/25 14:48:00 EDT, Height/Length Dosing, 85.7, kg, 06/27/25 14:48:00 EDT, Weight Dosing metformin, 1,000 mg = 2 tab(s), Oral, BID, # 360 tab(s), Refills(s) 1, Pharmacy: [facility], 165, cm, 10/02/24 11:39:00 EST, Height/Length [...] ER T (more content not included)... Normal [facility] Comment on above: Result Comment: Elec tronically Signed By: Mary Trotter\.br\Date and Time Signed: 06/27/25 16:04 EDT No Panel Informationon 04-13 [facility] Reminderson 04-02-2025 Reminders Reminders From: Mary [...] is to call with any questions. Normal [facility] CHEMISTRYOrdered By: Nicolle Rhodes on 03-28-2025 HbA1c (Bld) [Mass fraction] 5.6 % Normal <=5.9% [facility] Chem[facility] Family Medicine Office/Clini c Noteon 03-28-2025 [...] tab(s), Oral, Daily, 180 tab(s), Refill(s) 3, [facility], 165, cm, 10/02/24 11:39:00 EST, Height/Length Dosing, 97, kg, 10/02/24 11:39:00 EST, Weight Dosing metformin, 1,000 mg = 2 tab(s), Oral, BID, # 360 tab(s), Refills(s) 1, Pharmacy: [facility], 165, cm, 10/02/24 11:39:00 EST, Height/Length [...] Oral, Daily, 3 refills Metamucil, See Instructions [facility], See Instructions, 3 refills [facility] Pres[place], See Instructions, 3 refills oxybutynin [...] lifetime) Tobacco (more content not included)... Normal [facility] Comment on above: Result Comment: Elec tronically Signed By: Mary Trotter\.br\Date and Time Signed: 03/28/25 15:43 EDT [id number] 03-28-2025 HbA1c (Bld) [Mass fraction] 5.6 % Normal <=5.9 [facility] Comment on above: Performed By: #### [id number] #### [facility] [address] [place] [address] No Panel Informationon 10-26 [facility] Family Medicine Office/Clini c Noteon 10-02-2024 Family [...] the use of Ozempic and medications from [place]. She has successfully reduced her A1c to [...] lunch, # 360 cap(s), Refills(s) 0, Pharmacy: [facility], 165, cm, 10/02/24 11:39:00 EST, Height/Length Dosing, 97, kg, 10/02/24 11:39:00 EST, Weight Dosing hydrochlorot (more content not included)... Normal [facility] Comment on above: Result Comment: Elec [...] (Bld) [Mass fraction] 5.8 % Normal <=5.9% [facility] ChemAutoSS CMPon 09-28-2024 Albumin [Mass/Vol] 4.3 g/dL Normal 3.3-5.0 [facility] Comment on above: Performed By: #### 2 [id number] #### [facility] [address] [place] [address] Albumin/Globulin (S) [Mass conc ratio] 1.4 Normal 1.1-2.2 [facility] Comment on above: Performed By: #### 2 [id number] #### [facility] [address] [place] [address] ALP [Catalytic activity/Vol] 35 Int._Unit/L Normal 21-98 [facility] Comment on above: Performed By: #### 2 [id number] #### [facility] [address] [place] [address] ALT No additional P-5'-P [Catalytic activity/Vol] 16 Int._Unit/L Normal 6-46 [facility] Comment on above: Performed By: #### 2 [id number] #### [facility] [address] [place] [address] Anion gap [Moles/Vol] 14 mmol/L Normal 6-16 [facility] Comment on above: Performed By: #### 2 [id number] #### [facility] [address] [place] [address] AST [Catalytic activity/Vol] 18 Int._Unit/L Normal 5-43 [facility] Comment on above: Performed By: #### 2 [id number] #### [facility] [address] [place] [address] Bilirubin [Mass/Vol] 0.6 mg/dL Normal 0.0-1.1 [facility] Comment on above: Performed By: #### 2 [id number] #### [facility] [address] [place] [address] Calcium [Mass/Vol] 9.0 mg/dL Normal 8.9-11.1 [facility] Comment on above: Performed By: #### 2 [id number] #### [facility] [address] [place] [address] Chloride [Moles/Vol] 100 mmol/L Low 101-111 [facility] Comment on above: Performed By: #### 2 [id number] #### [facility] [address] [place] [address] CO2 [Moles/Vol] 26 mmol/L Normal 21-[address] [facility] Comment on above: Performed By: #### 2 [id number] #### [facility] [address] [place] [address] Creatinine [Mass/Vol] 1.0 mg/dL Normal 0.5-1.3 [facility] Comment on above: Performed By: #### 2 [id number] #### [facility] [address] [place] [address] Globulin (S) [Mass/Vol] 3.1 g/dL Normal 1.4-4.0 [facility] Comment on above: Performed By: #### 2 [id number] #### [facility] [address] [place] [address] Glucose [Mass/Vol] 110 mg/dL Normal 55-199 [facility] Comment on above: Performed By: #### 2 [id number] #### [facility] [address] [place] [address] Potassium [Moles/Vol] 4.2 mmol/L Normal 3.5-5.3 [facility] Comment on above: Performed By: #### 2 [id number] #### [facility] [address] [place] [address] Protein [Mass/Vol] 7.4 g/dL Normal 6.0-7.8 [facility] Comment on above: Performed By: #### 2 [id number] #### [facility] [address] [place] [address] Sodium [Moles/Vol] 136 mmol/L Normal 135-145 [facility] Comment on above: Performed By: #### 2 [id number] #### [facility] [address] [place] [address] Urea nitrogen [Mass/Vol] 16 mg/dL Normal 5-21 [facility] Comment on above: Performed By: #### 2 [id number] #### [facility] [address] [place] [address] Urea nitrogen/Creatinine [Mass ratio] 16 No Units Normal 10-20 [facility] Comment on above: Performed By: #### 2 [id number] #### [facility] [address] [place] [address] [id number] 09-28-2024 HbA1c (Bld) [Mass fraction] 5.8 % Normal <=5.9 [facility] Comment on above: Performed By: #### 7 [id number] #### [facility] [address] [place] [address] Lipid Panelon 09-28-2024 Cholesterol [Mass/Vol] 183 mg/dL Normal 120-200 [facility] Comment on above: Performed By: #### 2 [id number] #### [facility] [address] [place] [address] Cholesterol in HDL [Mass/Vol] 44 mg/dL Invalid Interpretation Code [facility] Comment on above: Result Comment: '>= 60 LOW RISK' '<= 40 HIGH RISK' Performed By: #### 2 [id number] #### [facility] [address] [place] [address] Cholesterol in LDL [Mass/Vol] 96 mg/dL Normal <=129 [facility] Comment on above: Performed By: #### 2 [id number] #### [facility] [address] [place] [address] Cholesterol in VLDL [Mass/Vol] 62 mg/dL High 7-40 [facility] Comment on above: Performed By: #### 2 [id number] #### [facility] [address] [place] [address] Triglyceride [Mass/Vol] 309 mg/dL High <=149 [facility] Comment on above: Performed By: #### 2 [id number] #### [facility] [address] [place] [address] U MA/Cr Ratioon 09-28-2024 Albumin DL <= 20 mg/L (U) [Mass/Vol] 8.8 mg/dL High 0.0-1.9 [facility] Comment on above: Performed By: #### 1 [id number] #### [facility] [address] [place] [address] Albumin/Creatinine DL <= 20 mg/L (U) [Mass ratio] 50.9 mg/gm Cr High .0-30.0 [facility] Comment on above: Result Comment: 30-3 00 mg/g Cr indicates an increased risk for diabetic nephropathy. >300 mg/g Cr is consistent with clinical nephropathy. Performed By: #### 1 [id number] #### [facility] [address] [place] [address] U Creatinine 172.8 mg/dL Invalid Interpretation Code [facility] Comment on above: Performed By: #### 1 [id number] #### [facility] [address] [place] [address] eGFRon 09-28-2024 eGFR 59 mL/min/1.73 m2 Normal >=59 [facility] Comment on above: Performed By: #### 1 [id number] #### [facility] [address] [place] [address] BASIC METABOLIC PANELon 08-27 Calcium [Mass/Vol] 9.8 mg/dL Normal 8.4-10.2 [facility] Comment on above: Order Comment: [facility] has implemented the eGFR calculation approach that does not have a coefficient for race that conforms to the NKF-ASN Task Force Recommendations. Performed By: #### 4 [id number] #### [facility] [address] [place] [address] Ashlee Hull M.D. [id number] CBC WITH AUTO DIFFERENTIALon 09-20-2024 AUTO NRBC 0.0 % Normal [facility] Comment on above: Performed By: #### L [id number] #### [facility] [address] [place] [address] Ashlee Hull M.D. [id number] AUTO NRBC ABS COUNT 0.00 K/mcL Normal 0.00-0.00 [facility] Comment on above: Performed By: #### L [id number] #### [facility] [address] [address] Ashlee Hull M.D. [id number] BASOPHILS ABSOLUTE COUNT 0.03 K/mcL Normal 0.00-0.30 [facility] Comment on above: Performed By: #### L [id number] #### [facility] [address] [place], [place] [address] Ashlee Hull M.D. [id number] Basophils/100 WBC (Bld) 0.4 % Normal [facility] Comment on above: Performed By: #### L [id number] #### [facility] [address] [place] [address] Ashlee Hull M.D. [id number] Eosinophils (Bld) [#/Vol] 0.06 10*3/uL Normal 0.00-0.50 [facility] Comment on above: Performed By: #### L [id number] #### [facility] [address] [address] Ashlee Hull M.D. [id number] Eosinophils/100 WBC (Bld) 0.8 % Normal [facility] Comment on above: Performed By: #### L [id number] #### [facility] [address] [place] [address] Ashlee Hull M.D. [id number] Erythrocyte distribution width (RBC) [Ratio] 12.5 % Normal 11.6-14.8 [facility] Comment on above: Performed By: #### L [id number] #### [facility] [address] [place] [address] Ashlee Hull M.D. [id number] Hematocrit (Bld) [Volume fraction] 38.3 % Normal 36.0-46.0 [facility] Comment on above: Performed By: #### L [id number] #### [facility] [address] [place] [address] Ashlee Hull M.D. [id number] Hemoglobin (Bld) [Mass/Vol] 12.9 g/dL Normal 12.0-16.0 [facility] Comment on above: Performed By: #### L [id number] #### [facility] [address] [place] [address] Ashlee Hull M.D. [id number] IG ABSOLUTE 0.02 K/mcL Normal 0.00-0.30 [facility] Comment on above: Performed By: #### L [id number] #### [facility] [address] [place] [address] Ashlee Hull M.D. [id number] IG PERCENT 0.30 % Normal [facility] Comment on above: Result Comment: The IG parameter is the percentage of metamyelocytes, myelocytes and promyelocytes. An immature granulocyte count (IG) of 1% or more suggests the possibility of infection, an IG count of 3% is very likely related to an infection. Performed By: #### L [id number] #### [facility] [address] [address] Ashlee Hull M.D. [id number] Lymphocytes (Bld) [#/Vol] 2.89 10*3/uL Normal 0.90-4.00 [facility] Comment on above: Performed By: #### L [id number] #### [facility] [address] [place] [address] Ashlee Hull M.D. [id number] Lymphocytes/100 WBC (Bld) 39.3 % Normal [facility] Comment on above: Performed By: #### L [id number] #### [facility] [address] [place] [address] Ashlee Hull M.D. [id number] MCH (RBC) [Entitic mass] 30.9 pg Normal 26.0-34.0 [facility] Comment on above: Performed By: #### L [id number] #### [facility] [address] [place] [address] Ashlee Hull M.D. [id number] MCV (RBC) [Entitic vol] 91.6 fL Normal 80.0-100.0 [facility] Comment on above: Performed By: #### L [id number] #### [facility] [address] [place] [address] Ashlee Hull M.D. [id number] MEAN CORPUSCULAR HEMOGLOBIN CONC 33.7 g/dL Normal 31.0-37.0 [facility] Comment on above: Performed By: #### L [id number] #### [facility] [address] [address] Ashlee Hull M.D. [id number] Monocytes (Bld) [#/Vol] 0.43 10*3/uL Normal 0.30-0.90 [facility] Comment on above: Performed By: #### L [id number] #### [facility] [address] [place], [place] [address] Ashlee Hull M.D. [id number] Monocytes/100 WBC (Bld) 5.8 % Normal [facility] Comment on above: Performed By: #### L [id number] #### [facility] [address] [place] [address] Ashlee Hull M.D. [id number] NEUTROPHILS ABSOLUTE COUNT 3.93 K/mcL Normal 1.70-7.00 [facility] Comment on above: Performed By: #### L [id number] #### [facility] [address] [place] [address] Ashlee Hull M.D. [id number] Neutrophils/100 WBC (Bld) 53.4 % Normal [facility] Comment on above: Performed By: #### L [id number] #### [facility] [address] [address] Ashleelaurel Hull M.D. [id number] Platelet mean volume (Bld) [Entitic vol] 8.7 fL Low 9.4-12.4 [facility] Comment on above: Performed By: #### L [id number] #### [facility] [address] [place], [place] [address] Ashlee Hull M.D. [id number] Platelets (Bld) [#/Vol] 234 10*3/uL Normal 150-400 [facility] Comment on above: Performed By: #### L [id number] #### [facility] [address] [place], [place] [address] Ashlee Hull M.D. [id number] RBC (Bld) [#/Vol] 4.18 10*6/uL Normal 4.00-5.20 [facility] Comment on above: Performed By: #### L [id number] #### [facility] [address] [place] [address] Ashlee Hull M.D. [id number] WBC (Bld) [#/Vol] 7.36 10*3/uL Normal 4.50-11.00 [facility] Comment on above: Performed By: #### L [id number] #### [facility] [address] [place], [place] [address] Ashlee Hull M.D. [id number] CHEM 7on 09-20-2024 Anion gap [Moles/Vol] 22 mmol/L High 10-20 [facility] Comment on above: Order Comment: [facility] has implemented the eGFR calculation approach that does not have a coefficient for race that conforms to the NKF-ASN Task Force Recommendations. Performed By: #### 4 [id number] #### [facility] [address] [address] Ashlee Hull M.D. [id number] Performed By: #### 4 [id number] #### [facility] [address] [place] [address] Ashlee Hull M.D. [id number] Chloride [Moles/Vol] 95 mmol/L Low 98-108 [facility] Comment on above: Order Comment: [facility] has implemented the eGFR calculation approach that does not have a coefficient for race that conforms to the NKF-ASN Task Force Recommendations. Performed By: #### 4 [id number] #### [facility] [address] [address] Ashlee Hull M.D. [id number] Performed By: #### 4 [id number] #### [facility] [address] [place], [place] [address] Ashlee Hull M.D. [id number] Creatinine [Mass/Vol] 1.06 mg/dL Normal 0.60-1.10 [facility] Comment on above: Order Comment: [facility] has implemented the eGFR calculation approach that does not have a coefficient for race that conforms to the NKF-ASN Task Force Recommendations. Performed By: #### 4 [id number] #### [facility] [address] [place], [place] [address] Ashlee Hull M.D. [id number] Performed By: #### 4 [id number] #### ([facility] [address] [place], [place] [address] Ashlee Hull M.D. [id number] EGFR 56 mL/min/1.73 m2 Low >=60 [facility] Comment on above: Order Comment: [facility] has implemented the eGFR calculation approach that does not have a coefficient for race that conforms to the NKF-ASN Task Force Recommendations. Result Comment: Natacha mated GFR was calculated using the 2020 CKD-EPI creatinine equation. Estimated GFR was calculated using the 2020 CKD-EPI creatinine equation. Performed By: #### 4 [id number] #### [facility] ([facility] [address] [address] Ashlee Hull M.D. [id number] Result Comment: Natacha mated GFR was calculated using the 2020 CKD-EPI creatinine equation. Performed By: #### 4 [id number] #### [facility] ([facility] [address] [place], [place] [address] Ashlee Hull M.D. [id number] Glucose [Mass/Vol] 107 mg/dL High 65-99 [facility] Comment on above: Order Comment: [facility] has implemented the eGFR calculation approach that does not have a coefficient for race that conforms to the NKF-ASN Task Force Recommendations. Performed By: #### 4 [id number] #### [facility] [address] [place], [place] [address] Ashlee Hull M.D. [id number] Performed By: #### 4 [id number] #### [facility] [address] [place], [place] [address] Ashlee Hull M.D. [id number] HCO3 (Bld) [Moles/Vol] 23 mmol/L Normal 21-32 [facility] Comment on above: Order Comment: [facility] has implemented the eGFR calculation approach that does not have a coefficient for race that conforms to the NKF-ASN Task Force Recommendations. Performed By: #### 4 6953 #### [facility] [address] [place], [place] [address] Ashlee Kurtis M.DPastora [id number] Performed By: #### 4 6124 #### [facility] [address] [place], [place] [address] Ashlee Rosieramaci, M.DPastora [id number] Potassium [Moles/Vol] 4.8 mmol/L Normal 3.5-5.1 [facility] Comment on above: Order Comment: [facility] has implemented the eGFR calculation approach that does not have a coefficient for race that conforms to the NKF-ASN Task Force Recommendations. Performed By: #### 4 6953 #### [facility] [address] [place], [place] [address] Ashlee Kurtis M.DPastora [id number] Performed By: #### 4 6124 #### [facility] [address] [place], [place] [address] Ashlee Daraararamaci, M.D. [id number] Sodium [Moles/Vol] 135 mmol/L Normal 135-145 [facility] Comment on above: Order Comment: [facility] has implemented the eGFR calculation approach that does not have a coefficient for race that conforms to the NKF-ASN Task Force Recommendations. Performed By: #### 4 6953 #### [facility] [address] [place], [place] [address] Ashlee Kurtis M.DPastora [id number] Performed By: #### 4 6124 #### [facility] [address] [place], [place] [address] Ashlee Daraararamaci, M.DPastora [id number] Urea nitrogen [Mass/Vol] 21 mg/dL Normal 8-25 [facility] Comment on above: Order Comment: [facility] has implemented the eGFR calculation approach that does not have a coefficient for race that conforms to the NKF-ASN Task Force Recommendations. Performed By: #### 4 6953 #### [facility] [address] [place], [place] [address] Ashlee Hull M.D. [id number] Performed By: #### 4 6124 #### [facility] ([facility]) [facility] [address] [place], [place] [address] Ashlee Hull M.D. [id number] Urea nitrogen/Creatinine [Mass ratio] 19.8 mg/mg Normal 10.0-20.0 [facility] Comment on above: Order Comment: [facility] has implemented the eGFR calculation approach that does not have a coefficient for race that conforms to the NKF-ASN Task Force Recommendations. Performed By: #### 4 6953 #### [facility] ([facility]) [facility] [address] [place], [place] [address] Ashlee Hull M.D. [id number] Performed By: #### 4 6124 #### [facility] ([facility]) [facility] [address] [place], [place] [address] Ashlee Hull M.D. [id number] CT ABDOMEN PELVIS WITHOUT CO NTRASTon 09-20-2024 [...] post cholecystectomy and hysterectomy. MS/lab Workstation ID: [id number] Dictated by: MAGGY LUIS on TueSep 20, 2024 4:01:25 PM EST Transcribed by: BEATA AHN on [place] Sep 20, 2024 4:04:27 PM EST Finalized by: MAGGY LUIS on [place] Sep 23, 2024 6:46:42 PM EST Normal [facility] Comment on above: Order Comment: Injur y/Trauma or Illness?:Illness/Other How long have you had these symptoms (acute/chronic)?:Acute Reason for exam?:LLQ abdominal pain this morning Type of Exam?:Initial Additional signs and symptoms?:no ED Prov Noteon 09-20-2024 ED Prov Note EMERGENCY MEDICINE PROVIDER NOTE [facility] Encounter Date: 09/20/24 History obtained [...] and hysterectomy (more content not included)... Normal [facility] Ambulatory Visit Summaryon 1 Ambulatory [...] Appointments Tuesday 9:20 AM EST With: Where: [address] [address]- Tuesday 1:15 PM EST With: Rimma Kelly MD Where: [address] [address]- 2024 2:30 PM EDT With: Where: [address] [address]- You Need to Complete the Following Comprehensive [...] Prescription (BAYLEE (more content not included)... Normal [facility] Medicine Office/Clini c Noteon 07-02-2024 [...] Comments : wears corrective lens. Goes to [facility] yearly. Rachel Bolanos 06/26/2024 14:44 EDT [...] 14:50:36 ED (more content not included)... Normal [facility] Comment on above: Result Comment: Elec [...] Appointments Tuesday 9:20 AM EST With: Where: [address] [address]- Tuesday 1:15 PM EST With: Rimma Kelly MD Where: [address] [address]- 2024 2:30 PM EDT With: Where: [address] [address]- Medications What How Much When Why Instructions [...] oxybutynin (oxybu (more content not included)... Normal [facility] Ambulatory Visit Summary Ambulatory Visit Summary [...] EST With: Audie BIGGS, Rimma Alfredo Where: [facility] Medicine [address] [address]- Medications What How Much When Why Instructions [...] neuropathy Pos (more content not included)... Normal [facility] Medicine Office/Clini c Noteon 06-26-2024 Family [...] medicare to cover it. Fax to # [phone] ( [facility]) Needs refills of [...] in semaglutide dosing suggested. Ordered: A1c POC [address] [facility] [place] Internal Ambulatory Referral 2. HTN (hypertension) (I10: Essential (primary) hypertension) Management of essential hypertension was not a primary focus of today's discussion, but continued adherence to current treatment regimens is presumed. Ordered: A1c POC [address] [facility] [place] Internal Ambulatory Referral 3. [...] enhance weight loss efficacy. Ordered: A1c POC [address]8622 [facility] [place] Internal Ambulatory Referral 4. ELY (obstructive s (more content not included)... Normal [facility] Comment on above: Result Comment: Elec [...] Follow-Up Appointments Tuesday 1:00 PM EDT Where: [facility] [place] Normal [facility] Office/Clini c Noteon 03-27-2024 [...] - No other issues Ordered: A1c POC 45195 Body Mass Index (BMI) documented 3008F Current [...] - Continue as before Ordered: A1c POC 46498 Body Mass Index (BMI) documented 3008F Current [...] - BMI education added Ordered: A1c POC 81222 Body Mass Index (BMI) documented 3008F Current [...] Diet and exercise advised Ordered: A1c POC 99672 Body Mass Index (BMI) documented 3008F Current [...] continue to not smoke Ordered: A1c POC 83461 Body Mass Index (BMI) documented 3008F Current [...] lunch, # 360 cap(s), Refills(s) 0, Pharmacy: [facility], 165, cm, 03/27/24 10:13:00 EDT, Height/Length Dosing, 107.9, kg, 03/27/24 10:13:00 EDT, Weight Dosing semaglutide, 0.25 mg, SubCutaneous, qWeek, # 3 mL, Refills(s) 0, Pharmacy: [facility], 165, cm, 03/27/24 10:13:00 EDT, Height/Length Dosing, 107.9, kg, 03/27/24 10:13:00 EDT, Weight Dosing Follow-up No qualifying data available Patient Education BMI for Adults Problem List/Past Medical History Ongoing Advanced care planning/counseling discussion Anticoagulated Aortic atherosclerosis Back pain BMI 39.0-39.9,adult Chronic diarrhea Diverticular disease Family hx of aortic aneurysm Feeling of incomplete bladder emptying Frequency of (more content not included)... Normal [facility] Comment on above: Result Comment: Elec [...] replacement. Pressure setting 11 Fax to [facility] [phone] Do you have any of the following [...] EA, Oral, BID, 210 gram, Refill(s) 0, [facility], 165, cm, 01/03/24 10:13:00 EDT, Height/Length Dosing, 108.1, kg, 01/03/24 10:13:00 EDT, Weight Dosing 2. Type 2 diabetes mellitus with morbid obesity (E11.69: Type 2 diabetes mellitus with other specified complication) - Will recheck A1c today. Ordered: cholestyramine, 5 gram, 1 EA, Oral, BID, 210 gram, Refill(s) 0, [facility], 165, cm, 01/03/24 10:13:00 EDT, Height/Length Dosing, 108.1, kg, 01/03/24 10:13:00 EDT, Weight Dosing 3. BMI 39.0-39.9,adult (Z68.39: Body mass index [BMI] 39.0-39.9, adult) - BMI education uploaded Ordered: cholestyramine, 5 gram, 1 EA, Oral, BID, 210 gram, Refill(s) 0, [facility], 165, cm, 01/03/24 10:13:00 EDT, Height/Length Dosing, 108.1, kg, 01/03/24 10:13:00 EDT, Weight Dosing 4. Class 1 obesity due to excess calories in adult (E66.09: Other obesity due to excess calories) - Diet and exercise advised Ordered: cholestyramine, 5 gram, 1 EA, Oral, BID, 210 gram, Refill(s) 0, [facility], 165, cm, 01/03/24 10:13:00 EDT, Height/Length Dosing, 108.1, kg, 01/03/24 10:13:00 EDT, Weight Dosing 5. Nonsmoker (Z78.9: Other specified health status) - Please continue to not smoke Ordered: cholestyramine, 5 gram, 1 EA, Oral, BID, 210 gram, Refill(s) 0, [facility], 165, cm, 01/03/24 10:13:00 EDT, Height/Length Dosing, 108.1, kg, 01/03/24 10:13:00 EDT, Weight Dosing 6. ELY (obstructive sleep apnea) (G47.33: Obstructive sleep apnea (adult) (pediatric)) - Will redo the CPAP Ordered: cholestyramine, 5 gram, 1 EA, Oral, BID, 210 gram, Refill(s) 0, [facility], 165, cm, 01/03/24 10:13:00 EDT, Height/Length Dosing, 108.1, kg, 01/03/24 10:13:00 EDT, Weight Dosing 7. Chronic diarrhea (K52.9: Noninfective gastroenteritis and colitis, unspecified) - Will try Cholestyramine given hx of gallbladder. - Maybe 2/2 partial colectomy. Ordered: cholestyramine, 5 gram, 1 EA, Oral, BID, 210 gram, Refill(s) 0, [facility], 165, cm, 01/03/24 10:13:00 EDT, Height/Length Dosing, 108.1, kg, 01/03/24 10:13:00 EDT, Weight Dosing 8. Family hx of aortic aneurysm (Z82.49: Family history of ischemic heart disease and other diseases of the circulatory system) U/S ordered. Ordered: US Aorta Orders: gabapentin, 300 mg = 1 cap(s), Oral, BID, # 180 cap(s), Refills(s) 0, Pharmacy: [facility], 165, cm, 01/03/24 10:13:00 EDT, Height/Length [...] Historical Abdomi (more content not included)... Normal [facility] Comment on above: Result Comment: Elec tronically Signed By: Audie BIGSG, Rimma Alfredo\.br\Date and Time Signed: 03/02/24 10:56 EDT RAD - Ultrasound Reporton RAD - Ultrasound Report [id number] .00TIFF [facility] Ambulatory Visit Summaryon 0 01-03-2024 Ambulatory Visit [...] EDT With: Audie BIGGS, Rimma Alfredo Where: [facility] [place] Normal [address] [place] [address]- \.br\ You Need to Complete the Following\.br\ US Aorta, 01/03/24, Routine, Order for future visit, Transport Mode: Ambulatory, Reason: Other (please specify), No, Family hx of aortic aneurysm, Family Hx. Recommended by brothers Insurance Instructor., pp_set_radiology_ subspecialty, Not Required, [facility]\.br\ Medications\.br\ What How Much When Why Instructions\.br\ New cholestyramine (cholestyramine 4 g/ 5 g Oral Pwdr) 1 Each By Mouth 2 times a day HTN (hypertension) Type 2 diabetes mellitus with morbid obesity BMI 39.0-39.9,adult Class 1 obesity due to excess calories in adult Nonsmoker ELY (obstructive sleep apnea) Chronic diarrhea Pickup at [facility]\.br\ Unchanged gabapentin (gabapentin 300 mg Cap) 1 Capsules By Mouth 2 times a day Pickup at [facility]\.br\ Unchanged ascorbic acid (ascorbic acid 1000 [...] if questions or concerns \.br\ Pharmacy Information\.br\ [facility]: [address] [place], [place] [id number] [phone]\.br\ Allergies\.br\ Dilaudid (Foggy mind)\.br\ Biaxin\.br\ CeleBREX\.br\ Nubain [...] for choosing us for your care.\.br\ \.br\ [facility] Retail - Clinical Noteon Retail - Clinical Note [id number] .00TIFF Normal [facility] Consultation Noteon 11-02-19 Consultation Note [id number] .00TIFF Normal [facility] XR FOOT LT MIN 3 VIEWSon [...] TARAS WILEY Date: 2022-11-21 01:25 Normal [facility] MARQUEZ by IFAon 09-09-2022 Antinuclear Antibodies, IFA Negative Normal [facility] Comment on above: Result Comment: Nega tive <1:80 Borderline 1:80 Positive >1:80 ICAP nomenclature: AC-0 For more information about Hep-2 cell patterns use ANApatterns.org, the official website for the International Consensus on Antinuclear Antibody (MARQUEZ) Patterns (ICAP). Performed By: #### A NAIFA ####[facility] [address] [place] [address]DrPastora Cortes ANTISTREPTOLYSIN O AB (ASO)o n 09-08-2022 Antistreptolysin O Ab 104.5 IU/mL Normal 0.0-200.0 [facility] Comment on above: Performed By: #### A SOAB #### [facility] Laboratory [address] [place] [address] Dr. Marcella Cortes RHEUMATOID FACTORon 09-08-20 RA Latex Turbid. <10.0 Normal <14.0 The [facility] Comment on above: Performed By: #### R F #### [facility] [address] [place] [address] Dr. Marcella Cortes CBC AUTO DIFFon 09-07-2022 BASO # 0.0 103/ul Normal 0.0-0.1 [facility] Comment on above: Performed By: #### C BC ####[facility] [address] [place], [place] [address]DrPastora Cortes Basophils/100 WBC (Bld) 0.5 % Normal 0.2-2.0 [facility] Comment on above: Performed By: #### C BC ####[facility] [address] [place], [place] [address]Dr. Marcella Cortes EO # 0.1 103/ul Normal 0.0-0.7 [facility] Comment on above: Performed By: #### C BC ####[facility] [address] [place], [place] [address]Dr. Marcella Cortes Eosinophils/100 WBC (Bld) 1.4 % Normal 0.9-7.0 [facility] Comment on above: Performed By: #### C BC ####[facility] [address] [place], [place] [address]Dr. Marcella Sebastian Erythrocyte distribution width (RBC) [Ratio] 12.6 % Normal 11.0-15.0 [facility] Comment on above: Performed By: #### C BC ####[facility] [address] [place], [place] [address]Dr. Marcella Cortes Hematocrit (Bld) [Volume fraction] 37.1 % Normal 36.0-48.0 [facility] Comment on above: Performed By: #### C BC ####[facility] [address] [place], [place] [address]Dr. Marcella Cortes Hemoglobin (Bld) [Mass/Vol] 12.4 g/dL Normal 12.0-16.0 [facility] Comment on above: Performed By: #### C BC ####[facility] [address] [place], [place] [address]Dr. Marcella Cortes IG # 0.03 10e3/ul Normal 0.00-0.03 [facility] Comment on above: Performed By: #### C BC ####[facility] [address] [place], [place] [address]Dr. Marcella Cortes IG % 0.5 % Normal 0.0-0.5 [facility] Comment on above: Performed By: #### C BC ####[facility] [address] [place], [place] [address]Dr. Marcella Cortes LYMPH # 2.4 103/ul Normal 1.2-3.8 [facility] Comment on above: Performed By: #### C BC ####[facility] S[address] [place], [place] [address]Dr. Marcella Cortes Lymphocytes/100 WBC (Bld) 36.2 % Normal 20.5-60.0 [facility] Comment on above: Performed By: #### C BC ####[facility] [address] [place], [place] [address]DrPastora Cortes MANUAL DIFF REQ NO Normal The [facility] Comment on above: Performed By: #### C BC ####[facility] [address] [place] [address]Dr. Marcella Cortes MCH (RBC) [Entitic mass] 30.3 pg Normal 26.7-34.0 [facility] [place] Comment on above: Performed By: #### C BC ####[facility] [address] [place] [address]Dr. Marcella Cortes MCHC (RBC) [Mass/Vol] 33.4 g/dL Normal 29.9-35.2 [facility] Comment on above: Performed By: #### C BC ####[facility] [address] [place], [place] [address]DrPastora Cortes MCV (RBC) [Entitic vol] 90.7 fL Normal 81.0-99.0 [facility] Comment on above: Performed By: #### C BC ####[facility] [address] [place], [place] [address]DrPastora Cortes MONO # 0.4 103/ul Normal 0.3-0.8 [facility] Comment on above: Performed By: #### C BC ####[facility] R[address] [place], [place] [address]DrPastora Cortes Monocytes/100 WBC (Bld) 5.9 % Normal 1.7-12.0 [facility] Comment on above: Performed By: #### C BC ####[facility] [address] [place], [place] [address]DrPastora Cortes NEUT # 3.7 103/ul Normal 1.4-6.5 [facility] Comment on above: Performed By: #### C BC ####[facility] [address] [place], [place] [address]DrPastora Cortes Neutrophils/100 WBC (Bld) 55.5 % Normal 43.0-75.0 [facility] Comment on above: Performed By: #### C BC ####[facility] [address] [place], [place] [address]DrPastora Cortes Platelet mean volume (Bld) [Entitic vol] 8.7 fL Critically low 9.5-13.5 [facility] [place] Comment on above: Performed By: #### C BC ####[facility] [address] [place], [place] [address]OmPastora Cortes PLT 224 103/ul Normal 150-450 [facility] Comment on above: Performed By: #### C BC ####[facility] [address] [place], [place] [address]YlDr. Marcella Cortes RBC 4.09 106/ul Critically low 4.20-5.40 [facility] Comment on above: Performed By: #### C BC ####[facility] [address] [place] [address]DrPastora Cortes WBC 6.7 103/ul Normal 4.0-11.0 [facility] [place] Comment on above: Performed By: #### C BC ####[facility] [address] [place] [address]Dr. Marcella Cortes CRPon 09-07-2022 CRP 0.7 mg/dL Normal <=1.0 [facility] [place] Comment on above: Performed By: #### C RP, URIC, LIPID, CMP #### [facility] Laboratory [address] [place], [place] [address] Dr. Marcella Cortes GLYCOHEMOGLOBIN A1Con 2021 ADA RECOMMENDATION SEE BELOW Normal [facility] Comment on above: Result Comment: ADA RECOMMENDED LIMIT 4.0 - 6.0 ADA THERAPEUTIC TARGET < 7.0 ACTION SUGGESTED > 7.0 Performed By: #### A 1C ####[facility] [address] [place] [address]Dr. Marcella Cortes Glucose [Mass/Vol] 186 mg/dL Normal [facility] Comment on above: Performed By: #### A 1C ####[facility] [address] [place] [address]Dr. Marcella Cortes HbA1c (Bld) [Mass fraction] 8.1 % Critically high 4.5-6.2 [facility] [place] Comment on above: Performed By: #### A 1C ####[facility] [address] [place], [place] [address]CjDr. Marcella Cortes LIPID PROFILEon 09-07-2022 CHOL-HDL RATIO NORM SEE BELOW Normal [facility] Comment on above: Result Comment: 3.3 - 4.4 LOW RISK 4.4 - 7.1 AVERAGE RISK 7.1 - 11.0 MODERATE RISK >11.0 HIGH RISK Performed By: #### C RP, URIC, LIPID, CMP #### [facility] Laboratory [address] [place] [address] [address] Marcella Cortes Cholesterol [Mass/Vol] 187 mg/dL Normal <=200 [facility] [place] Comment on above: Performed By: #### C RP, URIC, LIPID, CMP #### [facility] [address] [place] [address] [address] Marcella Cortes Cholesterol in HDL [Mass/Vol] 44 mg/dL Normal 40-60 [facility] [place] Comment on above: Performed By: #### C RP, URIC, LIPID, CMP #### [facility] [address] [place] [address] [address] Marcella Cortes Cholesterol in LDL [Mass/Vol] 97.0 mg/dL Normal [facility] [place] Comment on above: Performed By: #### C RP, URIC, LIPID, CMP #### [facility] [address] [place] [address] [address] Marcella Cortes Cholesterol.total/C holesterol in HDL [Mass ratio] 4.3 {ratio} Normal [facility] [place] Comment on above: Performed By: #### C RP, URIC, LIPID, CMP #### [facility] [address] [place] [address] [address] Marcella Cortes HDL NORMAL > or = 60 mg/dl - LO W CARDIOVASCULAR RISK <40 mg/dl - HIGH CARDIOVASCULAR RISK Normal [facility] [place] Comment on above: Performed By: #### C RP, URIC, LIPID, CMP #### [facility] [address] [place] [address] [address] Marcella Cortes LDL CALC NORMAL SEE BELOW Normal [facility] Comment on above: Result Comment: <100 mg/dl OPTIMAL 100 - 129 mg/dl NEAR OR ABOVE OPTIMAL 130 - 159 mg/dl BORDERLINE HIGH 160 - 189 mg/dl HIGH >190 mg/dl VERY HIGH Performed By: #### C RP, URIC, LIPID, CMP #### [facility] [address] [place] [address] Dr. Marcella Cortes Triglyceride [Mass/Vol] 230 mg/dL Critically high <=150 [facility] [place] Comment on above: Performed By: #### C RP, URIC, LIPID, CMP #### [facility] [address] [place] [address] Dr. Marcella Cortes VLDL CALC 46.0 mg/dL Normal [facility] [place] Comment on above: Performed By: #### C RP, URIC, LIPID, CMP #### [facility] [address] [place] [address] Dr. Marcella Cortes PROF 14(COMP METB)on 022 Albumin [Mass/Vol] 3.8 g/dL Normal 3.4-5.0 [facility] Comment on above: Performed By: #### C RP, URIC, LIPID, CMP #### [facility] [address] [place] [address] Dr. Marcella Cortes Albumin/Globulin [Mass ratio] 0.9 {ratio} Normal [facility] [place] Comment on above: Performed By: #### C RP, URIC, LIPID, CMP #### [facility] [address] [place] [address] Dr. Marcella Cortes ALP [Catalytic activity/Vol] 46 U/L Normal 46-116 [facility] Comment on above: Performed By: #### C RP, URIC, LIPID, CMP #### [facility] [address] [place] [address] Dr. Marcella Cortes ALT [Catalytic activity/Vol] 29 U/L Normal 14-59 [facility] [place] Comment on above: Performed By: #### C RP, URIC, LIPID, CMP #### [facility] [address] [place] [address] Dr. Marcella Cortes Anion gap [Moles/Vol] 16.2 mmol/L Normal [facility] [place] Comment on above: Performed By: #### C RP, URIC, LIPID, CMP #### [facility] [address] [place] [address] [address] Marcella Cortes AST [Catalytic activity/Vol] 20 U/L Normal 15-37 [facility] [place] Comment on above: Performed By: #### C RP, URIC, LIPID, CMP #### [facility] [address] [place] [address] [address] Marcella Cortes Bilirubin [Mass/Vol] 0.4 mg/dL Normal 0.2-1.0 [facility] [place] Comment on above: Performed By: #### C RP, URIC, LIPID, CMP #### [facility] [address] [place] [address] [address] Marcella Cortes Calcium [Mass/Vol] 9.2 mg/dL Normal 8.5-10.1 [facility] Comment on above: Performed By: #### C RP, URIC, LIPID, CMP #### [facility] [address] [place] [address] Dr. Marcella Cortes Chloride [Moles/Vol] 98 mmol/L Normal 98-107 [facility] [place] Comment on above: Performed By: #### C RP, URIC, LIPID, CMP #### [facility] [address] [place] [address] [address] Marcella Cortes CO2 [Moles/Vol] 26.1 mmol/L Normal 21.0-32.0 [facility] Comment on above: Performed By: #### C RP, URIC, LIPID, CMP #### [facility] [address] [address] [address] Marcella Cortes Creatinine [Mass/Vol] 0.84 mg/dL Normal 0.55-1.02 [facility] [place] Comment on above: Performed By: #### C RP, URIC, LIPID, CMP #### [facility] [address] [address] [address] Marcella Cortes EGFR-AF CITIZEN OF [place] >60 Normal >=60 [facility] Comment on above: Performed By: #### C RP, URIC, LIPID, CMP #### [facility] [address] [address] [address] Marcella Cortes EGFR-NON AF CITIZEN OF [place] >60 Normal >=60 [facility] [place] Comment on above: Performed By: #### C RP, URIC, LIPID, CMP #### [facility] [address] [address] [address] Marcella Cortes Globulin (S) [Mass/Vol] 4.0 g/dL Normal [facility] [place] Comment on above: Performed By: #### C RP, URIC, LIPID, CMP #### [facility] [address] [address] [address] Marcella Cortes Glucose [Mass/Vol] 163 mg/dL Critically high 74-106 T [facility] Comment on above: Performed By: #### C RP, URIC, LIPID, CMP #### [facility] [address] [place] [address] Dr. Marcella Cortes Potassium [Moles/Vol] 4.3 mmol/L Normal 3.5-5.1 [facility] [place] Comment on above: Performed By: #### C RP, URIC, LIPID, CMP #### [facility] [address] [place] [address] Dr. Marcella Cortes Protein [Mass/Vol] 7.8 g/dL Normal 6.4-8.2 [facility] Comment on above: Performed By: #### C RP, URIC, LIPID, CMP #### [facility] [address] [place] [address] Dr. Marcella Cortes Sodium [Moles/Vol] 136 mmol/L Normal 136-145 [facility] Comment on above: Performed By: #### C RP, URIC, LIPID, CMP #### [facility] [address] [place] [address] Dr. Marcella Cortes Urea nitrogen [Mass/Vol] 15.0 mg/dL Normal 7.0-18.0 [facility] [place] Comment on above: Performed By: #### C RP, URIC, LIPID, CMP #### [facility] [address] [place] [address] Dr. Marcella Cortes Urea nitrogen/Creatinine [Mass ratio] 17.9 mg/mg Normal [facility] [place] Comment on above: Performed By: #### C RP, URIC, LIPID, CMP #### [facility] [address] [place] [address] [address] [address] Marcella Cortes URIC ACID SERUMon 09-07-2022 Urate [Mass/Vol] 7.4 mg/dL Critically high 2.6-6.0 [facility] Comment on above: Performed By: #### C RP, URIC, LIPID, CMP #### [facility] [address] [place], [place] [address] CARDIAC SCORINGon 022 [...] unspecified complications . COMPARISON: None. ACCESSION NUMBER(S): [id number] ORDERING CLINICIAN: TERRI ROJO TECHNIQUE: Using prospective [...] al. JACC 2014 (http://dx.doi.org/10 .1016/j.j acc.2015.08.035) Reading Insurance Instructor: Dr. Jewel Vincent, Date: 03/18/2022 10:08 am Electronically signed by: MACO LUNA MD [facility] US BREAST LEFT LIMITEDon US BREAST LEFT LIMITED Patient: DAKSHA CORLEY Exam Date: 01/13/2022 : 1950 Gender:F Ordering : DR TERRI ROJO . Admission #: [id number] Family : Order #: [id number] CLICK HERE TO VIEW EXAM RADIOLOGY REPORT [...] Forde M.D. on 01/13/2022 at 10:54 Normal [facility] [place] MG MAMM SCREEN 3D CAMERON CADon 01-08-2022 MG MAMM SCREEN 3D CAMERON CAD Patient: DAKSHA CORLEY Exam Date: 01/08/2022 : 1950 Gender:F Ordering : DR TERRI ROJO . Admission #: [id number] Family : Order #: [id number] CLICK HERE TO VIEW EXAM RADIOLOGY REPORT [...] Treatments None Family Cancers None LOCATION: The [facility] BREAST COMPOSITION: Heterogeneously dense,which may [...] Forde M.D. on 01/08/2022 at 15:21 Normal [facility] [place] XR DEXA BONE DENSITYon 01-08 XR DEXA [...] by: PLACIDO FORDE Date: 2022-01-08 11:07 Normal [facility] [place] Vital Signs Date Time Vital Sign Value Performing Clinician Facility 02-19-2025 10:25-0400 Body height 167.6 cm Sulma Weston MD Work Phone: [facility] 02-19-2025 10:25-0400 Body mass index (BMI) [Ratio] 33.41 kg/m2 Sulma Weston MD Work Phone: [facility] 02-19-2025 10:25-0400 Body weight 93.89 kg Sulma Weston MD Work Phone: [facility] 02-19-2025 10:25-0400 Diastolic blood pressure 64 mm[Hg] Sulma Weston MD Work Phone: [facility] 02-19-2025 10:25-0400 Heart rate 88 /min Sulma Weston MD Work Phone: [facility] 02-19-2025 10:25-0400 Systolic blood pressure 90 mm[Hg] Sulma Weston MD Work Phone: [facility] 01-30-2025 09:21-0400 Body height 167.6 cm Sulma Weston MD Work Phone: [facility] 01-30-2025 09:21-0400 Body mass index (BMI) [Ratio] 33.41 kg/m2 Sulma Weston MD Work Phone: [facility] 01-30-2025 09:21-0400 Body weight 93.89 kg Sulma Weston MD Work Phone: [facility] 01-30-2025 09:21-0400 Diastolic blood pressure 66 mm[Hg] Sulma Weston MD Work Phone: [facility] 01-30-2025 09:21-0400 Heart rate 96 /min Sulma Weston MD Work Phone: [facility] 01-30-2025 09:21-0400 Systolic blood pressure 111 mm[Hg] Sulma Weston MD Work Phone: [facility] 09-05-2023 10:00-0500 Body height 167.64 cm Atif Lillian [facility] 09-05-2023 10:00-0500 Body mass index (BMI) [Ratio] 37.12 kg/m2 Atif Lillian [facility] 09-05-2023 10:00-0500 Body weight 104.33 kg Atif Lillian [facility] Other 05-23-2023 11:15-0400 Body height 167.64 cm Atif Lillian [facility] 05-23-2023 11:15-0400 Body mass index (BMI) [Ratio] 37.12 kg/m2 Atif Lillian [facility] 05-23-2023 11:15-0400 Body weight 104.33 kg Atif Lillian [facility] 03-30-2023 11:15-0400 Body height 167.64 cm Atif Lillian [facility] 03-30-2023 11:15-0400 Body mass index (BMI) [Ratio] 37.12 kg/m2 Atif Lillian [facility] 03-30-2023 11:15-0400 Body weight 104.33 kg Atif Lillian [facility] 02-16-2023 11:15-0400 Body height 167.64 cm Atif Lillian [facility] 12-08-2022 12:00-0400 Body height 167.64 cm Atif Lillian [facility] 12-08-2022 12:00-0400 Body mass index (BMI) [Ratio] 37.12 kg/m2 At[facility] L[facility] Other 12-08-2022 12:00-0400 Body weight 104.33 kg Atif Lillian Other [facility] Other 11-24-2022 11:30-0500 Body height 167.64 cm Atif Lillian Other [facility] Other 11-24-2022 11:30-0500 Body mass index (BMI) [Ratio] 37.93 kg/m2 Atif Lillian [facility] Other 11-24-2022 11:30-0500 Body weight 106.6 kg Atif Lillian [facility] Other Encounters Encounter Date Encounter Type Care Provider Facility Start: 10-03-2025 ambulatory Mary Escoto Facility: [facility] Start: 06-27-2025 End: 06-27-2025 ambulatory Rimma Kelly Facility:[facility] Laura salinas Start: 04-10-2025 End: 04-10-2025 Office outpatient visit 25 minutes Nancy Corrales MD Work Phone: [facility] Comment on above: Right epiretinal mem brane (Primary Dx); Type 2 diabetes mellitus without complication, without long-term current use of insulin ([facility]); Nuclear sclerotic cataract of both eyes Start: 04-10-2025 End: 04-10-2025 ambulatory [facility] Ophth Imaging [facility] Comment on above: Right epiretinal mem brane; Type 2 diabetes mellitus without complication, without long-term current use of insulin ([facility]) Start: 03-28-2025 End: 03-28-2025 Lab Drop off Mary L Tigist [facility] Start: 03-28-2025 End: 03-28-2025 ambulatory ART EDITOR Mary L Tigist Facility:[facility] Start: 02-19-2025 End: 02-19-2025 Bamboo flowsfei Weston [...] [facility] Start: 01-30-2025 End: 01-30-2025 Rupesh eWston MD Work Phone: [facility] Start: [...] complication, without long-term current use of insulin ([facility]) Start: 10-25-2024 End: 10-25-2024 Ophthalmology Imaging [facility] Comment on above: Other specified reti nal disorders Start: 10-02-2024 End: 10-02-2024 ambulatory Rimma Kelly Facility[facility] Start: 09-28-2024 End: 09-28-2024 Lab Drop off Rimma Kelly [facility] Start: 09-28-2024 End: 09-28-2024 ambulatory Rimma Kelly Facility:[facility] Start: 09-20-2024 End: 09-20-2024 Emergency department patient visit CARLOS STONER [facility] Start: 06-26-2024 End: 06-26-2024 ambulatory Rimma Kelly Facility:[facility] Start: 03-27-2024 End: 03-27-2024 ambulatory Rimma Kelly Facility:[facility] Start: 01-03-2024 End: 01-03-2024 ambulatory Rimma Kelly Facility:[facility] Start: 09-05-2023 End: 09-05-2023 ambulatory Atif Childs Other [facility] Other Start: 09-05-2023 Office outpatient vi sit 15 minutes Atif Childs [facility] Start: 05-23-2023 End: 05-23-2023 ambulatory Atif Childs Other [facility] Other Start: 05-23-2023 Office outpatient vi sit 15 minutes Atif Childs [facility] Start: 03-30-2023 End: 03-30-2023 ambulatory Atif Childs Other [facility] Start: 03-30-2023 Office outpatient vi sit 15 minutes Atif Childs [facility] Start: 02-16-2023 End: 02-16-2023 ambulatory Atif Childs Other [facility] Start: 02-16-2023 Office outpatient vi sit 15 minutes Atif Childs [facility] Start: 01-19-2023 End: 01-19-2023 ambulatory Ana Maria Glasgow Other [facility] Other Start: 01-19-2023 Office outpatient vi sit 15 minutes Ana Maria Glasgow [facility] Start: 12-29-[address] TERRI ROJO . Facil ity:[facility] Start: 12-22-2022 End: 12-22-2022 ambulatory Atif Childs Other [facility] Start: 12-22-2022 Office outpatient vi sit 15 minutes Atif Childs [facility] Start: 12-22-2022 Telephone encounter Atif Childs [facility] Start: 12-08-2022 End: 12-08-2022 ambulatory Atif Childs Other [facility] Start: 12-08-2022 Postop follow up vis it related to original px Atif Childs [facility] Start: 11-24-2022 End: 11-24-2022 ambulatory Atif Childs [facility] Start: 11-24-2022 Office outpatient ne w [...] structure) Rimma Kelly H/O: tubal ligation Rimma Mckeon oss Partial resection of colon S dione Kelly Repair of hip Rimma Kelly Comment on above: left Tonsillectomy and adenoidectomy Rimma Kelly Total knee replacement Darrell Kelly Comment on above: right left Plan of Treatment Date Care Activity Detail Author Start: 04-10-2026 Glaucoma screening Diabetic Op hthalmology Exam [facility] Start: 10-26-2025 Tobacco Screening Tobacco Screening [facility] Start: 10-25-2025 Glaucoma screening Diabetic Op hthalmology Exam [facility] Start: 10-11-2025 End: 10-11-2025 Patient encounter procedure 10/11/2025 2:10 PM EST Office Visit [facility] of [facility] [address] [place] [address] Nancy Corrales MD [address] [place] [address] [facility] Start: 05-27-2025 Influenza vaccination N [facility] Start: 04-10-2025 End: 04-10-2025 Patient encounter procedure 04/10/2025 2:30 PM EDT Office Visit [facility] [address] [place] [address] Nancy Corrales MD [address] [place] [address] [facility] Start: 02-19-2025 End: 02-19-2025 Patient encounter procedure [facility] Comment on above: Arrived Start: 05-27-2024 COVID-19 Vaccine ( season) COVID-19 Vaccine ( season) [facility] Start: 05-27-2024 Influenza vaccination Influenza Vacc ine [facility] Start: 12-18-2015 Fall Risk Screening Fall Risk Screen ing [facility] Start: 2000 Administration of varicella zoster vaccine Zoster (Shingles) Vaccine (1 of 2) [facility] Start: 2000 Pneumococcal Vaccine : 65+ Years (1 of 1 - PCV) Pneumococcal Vaccine: 65+ Years (1 of 1 - PCV) [facility] Start: 1990 Screening for malign ant neoplasm of breast Mammogram [facility] Start: 1969 DTaP,Tdap and Td Vaccines (1 - Tdap) DTaP,Tdap and Td Vaccines (1 - Tdap) [facility] Start: 1968 Adult BMI Screening Adult BMI Screen ing [facility] Start: 1968 Diabetic foot examination Diabetic Foot Exam [facility] Start: 1962 Depression Screening Depression Scre ening [facility] Start: 1962 Tobacco Screening Tobacco Screening [facility] Start: 1950 Screening for malign ant neoplasm of colon [facility] Immunizations Immunization Date Immunization Notes Care Provider Fa cili 09-04-2022 SARS-CoV-2 (COVID-19 ) [id number] Rimma Kelly [facility] 09-03-2022 influenza virus vaccine, unspecified formulation Rimma Kelly [facility] 02-02-2022 SARS-CoV-2 mRNA (jkoatbiwdlc-nbvr-fgcc ose) vaccine Rimma Kelly [facility] 08-26-2021 influenza virus vaccine, unspecified formulation Rimma Kelly [facility] 07-11-2021 SARS-CoV-2 (COVID-19 ) mRNA BNT-162b2 vax Rimma Kelly [facility] 12-03-2020 SARS-CoV-2 (COVID-19 ) mRNA BNT-162b2 [employer] Rimma Kelly [facility] Comment on above: Result Comment: 2022: [id number] 11-11-2020 SARS-CoV-2 (COVID-19 ) mRNA BNT-162b2 vax Rimma Kelly [facility] Comment on above: Result Comment: 2022: [id number] NEGATED: Highlighted row has not occurred!06-26-2024 influenza virus vaccine, unspecified formulation Rimma Kelly [facility] [place] Payers Date Payer Category Payer Private Health Insurance [id number] 2019 Managed Care Other (unspecified) [facility] [id number] 2015 Medicare [id number] 1959 Medicare [id number] 1959 Unknown [id number] 2.840.1.559890.19 1950 Unknown [id number] 2.840.1.017706.3.579.2 .593 1950 Unknown [id number] 2.16840.1.004707.3.579.2 .593 1950 Unknown [id number] 2.16.840.1.949129.3.579.2 .593 1950 Unknown [id number] 2.16840.1.653427.3.579.2 .593 1950 Unknown [id number] 2.16840.1.618951.3.579.2 .593 1950 Unknown [id number] 2.16.840.1.218071.3.579.2 .727 1950 Unknown [id number] 2.16.840.1.184196.3.579.2 .727 1950 Unknown [id number] 2.16.840.1.192115.3.579.2 .727 1950 Unknown [id number] 2.16.840.1.246200.3.579.2 .72 1950 Unknown [id number] 2.16.840.1.872949.3.579.2 .727 1950 Unknown [id number] 2.16.840.1.893183.3.579.2 .72 1950 Unknown [id number] 2.16.840.1.567203.3.579.2 .727 1950 Unknown [id number] 2.16840.1.362673.3.579.2 .727 1950 Unknown [id number] 2.16.840.1.572080.3.579.2 .902 1950 Unknown [id number] 2.16.840.1.659819.3.579.2 .1286 1950 Unknown [id number] 2.16.840.1.259615.3.579.2 .1286 1950 Unknown [id number] 2.16.840.1.154971.3.579.2 .1286 1950 Unknown [id number] 2.16.840.1.009016.3.579.2 .1259 1950 Unknown [id number] 2.16.840.1.410820.3.579.2 .1259 1950 Unknown [id number] 2.16.840.1.792931.3.579.2 .1286 1950 Unknown [id number] 2.16.840.1.457506.3.579.2 .1286 1950 Unknown [id number] 2.16.840.1.828237.3.579.2 .727 1950 Unknown [id number] 2.16.840.1.691236.3.579.2 .727 1950 Unknown [id number] 2.16.840.1.275299.3.579.2 .727 1950 Unknown [id number] 2.16.840.1.514712.3.579.2 .727 Social History Date Type Detail Facility Unknown if ever smoked [facility] Start: 11-06-2020 End: 12-08-2020 Sex Assigned At [facility] Start: 07-16-2020 End: 06-26-2024 Tobacco smoking status Never smoked tobacco (finding) [facility] Comment on above: denies use. [facility] Comment on above: denies use. Start: 07-16-2020 End: 01-30-2025 Tobacco use and exposure Smokeless tobacco non-user [facility] Start: 10-26-2024 End: 04-10-2025 Alcoholic beverage intake Ex-drinker (finding) [facility] Start: 11-06-2020 End: 12-08-2020 History of Social function [facility] Start: 1950 Sex assigned at Not on file [facility] Start: 05-01-2015 End: 02-28-2019 Sex Female (finding) [facility] Tobacco smoking stat us WYIS Tobacco smoking consumption unknown [facility] Sexual Orientation [facility] Medical Equipment Procedure Code Equipment Code Equipment Origin al Text Equipment Identifier Dates Misc DME Prescription, See Instructions, 100 strip(s), 3, True metrix test strips Test once a day Dx E 11.9, [employer] [facility], Supply, 167.6, cm, 02/02/23 13:51:00 EDT, Height/Length Dosing, 111.4, kg, 02/02/23 13:51:00 EDT, Weight Dosing Start: 02-15-2023 [facility] Prescription, See Instructions, 100 lancet(s), 3, Ultra thin unilet lancets use to test blood sugars once a day Dx E11.9, [facility], Supply, 167.6, cm, 02/02/23 13:51:00 EDT, Height/Length Dosing, 111.4, kg, 02/02/23 13:51:00 EDT, Weight Dosing Start: 02-15-2023 TEST STRIPS AND LANCETS, 1, SubCutaneous, Daily, 100 EA, 3, [facility], Supply, 167.6, cm, 02/02/23 13:51:00 EDT, Height/Length Dosing, 111.4, kg, 02/02/23 13:51:00 EDT, Weight Dosing Start: 02-15-2023 [facility] Prescription, See Instructions, 100 strip(s), 3, True metrix test strips Test once a day Dx E 11.9, [facility], Supply, 167.6, cm, 02/02/23 13:51:00 EDT, Height/Length Dosing, 111.4, kg, 02/02/23 13:51:00 EDT, Weight Dosing Start: 02-15-2023 [facility] Prescription, See Instructions, 100 lancet(s), 3, Ultra thin unilet lancets use to test blood sugars once a day Dx E11.9, [facility], Supply, 167.6, cm, 02/02/23 13:51:00 EDT, Height/Length Dosing, 111.4, kg, 02/02/23 13:51:00 EDT, Weight Dosing Start: 02-15-2023 TEST STRIPS AND LANCETS, 1, SubCutaneous, Daily, 100 EA, 3, [facility], Supply, 167.6, cm, 02/02/23 13:51:00 [...] a past medical history of Diabetes mellitus ([facility]) and Hypertension. She has a past surgical [...] complication, without long-term current use of insulin ([facility]) 3. Nuclear sclerotic cataract of both eyes ASSESSMENT/PLAN 1. Right epiretinal membrane (Primary) RIGHT EYE-stable -Criteria for surgical intervention discussed. -Continue observation -Monitor amsler grid -Testing done today reviewed with patient. - OCT, [facility] - OU - Both Eyes; Future 2. Type 2 diabetes mellitus without complication, without long-term current use of insulin ([facility]) BOTH EYES- no ocular manifestation. -Last A1c: [...] by ЕЛЕНА Shane documented in this encounter [facility] 02-19-2025 History of Present illness Narrative [...] loss (SNHL), bilateral documented in this encounter [facility] 01-30-2025 History of Present illness Narrative Subjective [...] F/U after audio documented in this encounter [facility] 10-26-2024 Note Right Eye Quality was good. 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 Patient states [...] a past medical history of Diabetes mellitus ([facility]) and Hypertension. She has a past surgical [...] complication, without long-term current use of insulin ([facility]) ASSESSMENT/PLAN 1. Right epiretinal membrane (Primary) RIGHT EYE -Criteria for surgical intervention discussed. Patient is asymptomatic without complaints. -Continue observation -Monitor amsler grid -Testing done today reviewed with patient. - [facility] - [place], [place] - Fundus Photos - OU - Both Eyes; Future - OCT, [facility] - OU - Both Eyes; Future 2. Nuclear sclerotic cataract of both eyes BOTH EYES -Nuclear sclerotic cataract noted on examination. -Continue observation. 3. Type 2 diabetes mellitus without complication, without long-term current use of insulin ([facility]) BOTH EYES- no ocular manifestation. -Last A1c: [...] accurate and complete. documented in this encounter [facility] 06-26-2024 Note Patient Education Nutrition BMI [...] for Disease Control and Prevention: cdc.gov ? [place] Heart Association: heart.org ? National Heart, Lung, and Blood [place]: nhlbi.nih.gov This information is not intended to replace advice given to you by your health care provider. Make sure you discuss any questions you have with your health care provider. Document Revised: 06/02/2023 Document Reviewed: 05/26/2023 [employer] Patient Education ? 2023 [employer]. [facility] 03-27-2024 Note Patient Education Nutrition BMI [...] numbers. This can be done either in Ivorian ([place] or metric measurements. Note that charts and online BMI calculators are available to help you find your BMI quickly and easily without having to do these calculations yourself. To calculate your BMI in Ivorian ([place] measurements: 1. Measure your weight in [...] for Disease Control and Prevention: www.cdc.gov ? [place] Heart Association: www.heart.org ? National Heart, Lung, and Blood [place]: www.nhlbi.nih.gov Summary ? Body mass index (BMI) is a number that is calculated from a person's weight and height. ? BMI may help estimate how much of a person's weight is composed of fat. BMI can help identify those who may be at higher risk for certain medical problems. ? BMI can be measured using Ivorian measurements or metric measurements. ? BMI charts are used to identify whether you are underweight, normal weight, overweight, or obese. This information is not intended to replace advice given to you by your health care provider. Make sure you discuss any questions you have with your health care provider. Document Revised: 06/04/2020 Document Reviewed: 04/11/2020 Language Learning Class Patient Education ? 2022 [employer]. [facility] 09-05-2023 Evaluation note Encounter Date Diagnosis [...] for refills if the medication is helping. [facility] 08-28-2023 Evaluation note* Encounter Date Diagnosis [...] - M76.61) Apr, Neuropathy (ICD-10 - G62.9) [facility] 07-05-2023 Evaluation note* Encounter Date Diagnosis [...] - M76.61) Mar, Neuropathy (ICD-10 - G62.9) [facility] 05-24-2023 Evaluation note* Encounter Date Diagnosis [...] as documented in the electronic medical record. [facility] 04-26-2023 Evaluation note* Encounter Date Diagnosis [...] in the office today and providing supervision. [facility] 03-29-2023 Evaluation note* Encounter Date Diagnosis [...] exercise. We discussed starting to peel one linoleum layer helper of the heel lift each week. Continue with use of boot at this time. Continue with use of walker as needed. A prescription for physical therapy was provided today. [facility] Other 03-15-2023 Evaluation note* Encounter Date Diagnosis [...] understanding and is agreeable to treatment plan. [facility] Other 03-01-2023 Evaluation note* Encounter Date Diagnosis [...] in office today. Prior medical notes from [facility] and history have been reviewed. At [...] as documented in the electronic medical record. [facility] Other 06-01-2019 History general Narrative - Reported* Type Description Date Medical History Borderline Type 2 Diabetes Medical History Hypertension Medical History kidney Stones 02/2019 Surgical History Partial Bowel Removal 37 years ago Surgical History Tonsil & Adnoids Surgical History Appendectomy 1971 Surgical History Hysterectomy with Bladder Suspe nsion 1988 Surgical History Tubal Ligation Surgical History Bilateral Knee Replacement 2009 Surgical History [facility] Hospitalization History Pneumonia 09/2017 [facility] Other Evaluation + Plan note Future Appointments Appointment Date:10/02/2024 11:30:00 AM Scheduled Provider:Rimma Kelly MD Location:[facility] ([facility]) Appointment Type: Open Appointment Date:06/27/2025 02:30:00 PM Scheduled Provider: Location:[facility] ([facility]) Appointment Type: Medicare Wellness Subsequent Future Scheduled Tests Radiology* US Aorta 01/03/24 [facility] Evaluation + Plan note Future Appointments Appointment Date:06/27/2025 02:40:00 PM Scheduled Provider:Mary Trotter Location:[facility] ([facility] Appointment Type: Open [facility] evaluation noteNo InformationNort [employer] Other evaluation note* Diagnosis Right epiretinal membrane- Primary Macular puckering of retina Nuclear sclerotic cataract of both eyes Senile nuclear sclerosis Type 2 diabetes mellitus without complication, without long-term current use of insulin ([facility]) Other specified retinal disorders Other specified retinal disorders [facility]* Diagnosis Other specified retinal disorders [facility]* Diagnosis Bilateral tinnitus- Primary Bilateral impacted cerumen Impacted cerumen documented in this encounter [facility]* Diagnosis Sensorineural hearing loss (SNHL), bilateral- Primary documented in this encounter [facility] Healthcare[facility] note* Diagnosis Right epiretinal membrane- Primary Macular puckering of retina Type 2 diabetes mellitus without complication, without long-term current use of insulin ([facility]) Nuclear sclerotic cataract of both eyes Senile nuclear sclerosis Right epiretinal membrane Macular puckering of retina Type 2 diabetes mellitus without complication, without long-term current use of insulin ([facility]) [facility]* Diagnosis Right epiretinal membrane Macular puckering of retina Type 2 diabetes mellitus without complication, without long-term current use of insulin ([facility]) [facility] N[facility] No data available for this section [facility] Hospital Discharge instructions No data available for this section [facility] Instructions* Attachments The following attachments cannot be sent through Care Everywhere. * Cataracts ([place]vorian) [facility] documented in [facility] SystemInstructionsNot on file [facility] SystemInstructionsNot on file documented in [facility] SystemProgress note No data available for this section [facility] Summary Purpose Family History No Family History [...] section and content) DATE CREATED AUTHOR 03/20/2022 [facility] DATE CREATED AUTHOR AUTHOR'S ORGANIZ ATION 12/31/2022 [facility] DATE CREATED AUTHOR AUTHOR'S ORGANIZ ATION 10/05/2024 [facility] DATE CREATED AUTHOR AUTHOR'S ORGANIZ ATION 10/06/2024 [facility] DATE CREATED AUTHOR AUTHOR'S ORGANIZ ATION 10/16/2024 [facility] DATE CREATED AUTHOR AUTHOR'S ORGANIZ ATION 10/27/2024 [facility] DATE CREATED AUTHOR AUTHOR'S ORGANIZ ATION 02/22/2025 [facility] DATE CREATED AUTHOR AUTHOR'S ORGANIZ ATION 04/14/2025 [facility] DATE CREATED AUTHOR AUTHOR'S ORGANIZ ATION 07/01/2025 [facility] DATE CREATED AUTHOR AUTHOR'S ORGANIZ ATION 07/02/2025 [facility] REASON FOR VISIT (unrecogniz ed section and content) Reason Comments Diabetic Eye Exam Specialty Diagnoses / Procedures Referred By Traci sterling Referred To Contact Ophthalmology Diagnoses Normal retina on examination of eye GeovanivinnyCarlos, OD [address] [place] [address] Phone: tel: fax: Nancy Corrales MD [address] [facility] [address] [place] [address] Phone: tel: fax: Referral ID Status Reason Start Date Expiration Date V isits Requested Visits Authorized [id number] Closed Specialty Services Required 10/24/2024 10/24/2025 1 1 Reason Comments Cerumen Impaction Reason Comments Tinnitus Follow up audio Dr Ok randolph 01/31/25 Reason Comments Right epiretinal membrane Patient Care team informatio n (unrecognized section and content) Framework Developer Relationship Specialty Start Date End Date Rimma Kelly MD [address] [place] [address] PCP - General Family Medicine 10/25/24 Framework Developer Relationship Specialty Start Date End Date Rimma Kelly MD [address] [place] [address] PCP - General Family Medicine 10/25/24 Framework Developer Relationship Specialty Start Date End Date Rimma Kelly MD [address] [place] [address] PCP - General Family Medicine 01/22/25 Framework Developer Relationship Specialty Start Date End Date Rimma Kelly MD [address] [place] [address] PCP - General Family Medicine 01/22/25 Framework Developer Relationship Specialty Start Date End Date Rimma Kelly MD [address] [place] [address] PCP - General Family Medicine 01/22/25 Framework Developer Relationship Specialty Start Date End Date Rimma Kelly MD [address] [place] [address] PCP - General Family Medicine 10/25/24 Framework Developer Relationship Specialty Start Date End Date Rimma Kelly MD [address] [place] [address] PCP - General Family Medicine 10/25/24 FOR [...] BE BASED ON THE PRIMARY CLINICAL RECORDS. [employer] [facility] provides no warranty or guarantee of the accuracy or completeness of information in this document.
== END 2025-07-10 11:05 | disposition home or self-care (01) ==
LOC: MAMMO 11:04
PROVIDERS: PCP Nurse Practitioner; Visit Provider Nurse Practitioner
DX: Z12.31 Encounter for screening mammogram for malignant neoplasm of breast (principal)
CPT/HCPCS: 77063; 77067

== ENCOUNTER 2025-07-22 14:53 | Outpatient (OUT) | payer MEDICARE, SELFPAY ==
--- OUTSIDE RECORDS SUMMARY | 2025-07-22 15:03 | XMS_ITS | CCD ---
Author Organization 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 Name Role Phone Atif Childs Unavailable ROJO [...] [place] Unavailable Rimma Kelly Primary Care Physician Rimma Kelly Attending Unavailable Rimma Kelly Attending Unavailable Rimma Kelly Attending Unavailable Rimma Kelly Attending Unavailable Rimma Kelly Attending Unavailable Rimma Kelly Admitting Unavailable Rimma Kelly Attending Unavailable Rimma Kelly Attending Unavailable Rimma Kelly Attending Unavailable CARLOS RIVERS Attending Unavailable NO, PHYSICIAN Primary Care Unavailable Rimma Kelly MD Primary Care Provider [phone] NANCY CORRALES Attending Unavailable TERRI ROJO Referring Unavailable RIMMA KELLY Primary Care Unavailable NANCY CORRALES Referring Unavailable RIMMA KELLY Primary Care Unavailable Rimma Kelly MD Primary Care Provider SULMA WESTON Attending Unavailable SULMA WESTON Attending Unavailable Rimma Kelly MD Primary Care Provider [phone] NANCY CORRALES Attending Unavailable RIMMA KELLY Referring Unavailable RIMMA KELLY Primary Care Unavailable NANCY CORRALES Referring Unavailable RIMMA KELLY Primary Care Unavailable Rimma Kelly. Admitting Unavailable Rimma Kelly. Attending Unavailable Tigist, CREATIVE COORDINATOR Mary L Attending Unavailable Tigist, CREATIVE COORDINATOR Mary L Attending Unavailable Tigist, CREATIVE COORDINATOR Mary L Admitting Unavailable Tigist, CREATIVE COORDINATOR Mary L Attending Unavailable Tigist, Mary L Admitting Unavailable Tigist, Mary L Attending Unavailable Tigist, Mary L Attending Unavailable Allergies Allergy ClassificationReported Allergen(s)Allergy TypeDate of OnsetReaction(s) Facility (15 sources)Nalbuphine; Translations: [Nubain]Drug AllergyClouded consciousness (finding)[facility] [place] [facility] (9 sources)Sulfonamides (Antibiotic)Propensity to adverse reactionsUnknowParkland Health Center [employer] Other (1 source)bee venomDrug allergy (disorder)[facility] [place] [facility] (4 sources)HYDROmorphone; Translations: [Dilaudid]Drug Zyeadrk06-03-9350Azk [facility] [place] [facility] (1 source)Sulfonamides (Antibiotic)Drug allergy (disorder)[facility] [place] [facility] (8 sources)celecoxib; Translations: [celecoxib]Drug Mseeocz86-67-0790[facility]frrtpDay[facility] (8 sources)Clarithromycin; Translations: [clarithromycin]Drug Hknamnr96-05-3385 [facility] (16 sources)HYDROmorphone; Translations: [hydromorphone]Drug Ecvdtkc79-94-8478 Clouded consciousness (finding), [facility] (19 sources)Nalbuphine; Translations: [nalbuphine]Drug Fwazfwu12-55-8671Okvagmw (qualifier value), Clouded consciousness (finding)[facility] Jackelin (8 sources)rofecoxib; Translations: [rofecoxib]Drug Xvtoxzn49-05-5370[facility] Lalit (5 sources)sulfabenzamide / Sulfacetamide / sulfathiazole; Translations: [triple sulfa topical]Drug AllergyUnknown (qualifier value)[facility] Jackelin (8 sources)Sulfonamides (Antibiotic); Translations: [SULFA (SULFONAMIDE ANTIBIOTICS)]Propensity to adverse reactions to drug (disorder)45-79-7376[facility] (6 sources)Sulfonamides (Antibiotic)Drug Jsrpuoovklt14-19-1911[facility] Medications Current Medications MedicationDrug Class(es)DatesSig (Normalized)Sig (Original)0.25 MG, 0.5 MG Dose 3 ML semaglutide 0.68 MG/ML Pen Injector [Ozempic] (1 source)Start: 77-25-6158Mubkipo 2 mg/3 mL (0.25 mg or 0.5 mg dose) subcutaneous solution 0.25 mg, SubCutaneous, qWeek, # 3 mL, Refills(s) 0, Pharmacy: [facility], 165, cm, 03/27/24 10:13:00 EDT, Height/Length Dosing, 107.9, kg, 03/27/24 10:13:00 EDT, Weight Dosing Start Date: 03/27/24 Status: Orderedallopurinol 100 mg oral tablet (9 sources)Xanthine Oxidase Inhibitortake 1 tablet by mouth every twenty-four hoursAllopurinol 100 MG 1 tablet Orally Once a day Activeascorbic acid 1000 mg oral tablet (6 sources)Vitamin CStart: 90-13-4732juzj 1 tablet by mouth once dailyascorbic acid 1000 mg oral tablet 1,000 mg = 1 tab(s), Oral, Daily, # 90 tab(s), Refills(s) 3, Pharmacy: [facility], 167.6, cm, 02/02/23 13:51:00 EDT, Height/Length Dosing, 111.4, kg,02/02/23 13:51:00 EDT, Weight Dosing Start Date: 02/02/23 Status: Orderedascorbic acid (VITAMIN C ORAL) Take by mouth. MbvpvvF75 Fast Dissolve 5000 MCG (8 sources)B12 Fast Dissolve 5000 MCG as directed Orally ActiveBlood pressure cuff-wrist (2 sources)Start: 65-64-6698Ebjuw pressure cuff-wrist Blood pressure cuff-wrist, See Instructions, 1 EA, 0, As Directed-Check blood pressure 1-2 hours after taking BP medication., [facility], Supply Start Date: 12/22/22 Status: Ordered Quantity: 1.0 Unit: EA Repeat number: 1Start: 50-85-0522Hbduf pressure cuff-wrist Blood pressure cuff-wrist, See Instructions, 1 EA, 0, As Directed-Check blood pressure 1-2 hours after taking BP medication., [facility], Supply Start Date: 12/22/22 Status: Orderedcelecoxib 100 mg oral capsule (3 sources)Nonsteroidal Anti-inflammatory DrugStart: 90-21-8213avhf 1 capsule by mouth every twelve hoursCeleBREX 100 MG 1 capsule with food Orally bid for 30 days Mar, ActiveCPAP (2 sources)Start: 81-74-8172ALZW CPAP, See Instructions, 1 EA, 0, c-pap machine w/ humidifier and rx must state motor life exceeded repair or replacement. Pressure setting 11, Supply Start Date: 01/04/24 Status: Ordered Quantity: 1.0 Unit: EA Repeat number: 1 Indications: Obstructive sleep apnea (adult) (pediatric);Start: 23-69-4994MHFV CPAP, See Instructions, 1 EA, 0, c-pap machine w/ humidifier and rx must state motor life exceeded repair or replacement. Pressure setting , Supply Start Date: 01/04/24 Status: Orderedcyanocobalamin, vitamin B-12, (VITAMIN B12 ORAL) (5 sources)cyanocobalamin, vitamin B-12, (VITAMIN B12 ORAL) Take by mouth. Activecyclobenzaprine hydrochloride 5 mg oral tablet (9 sources)Muscle RelaxantStart: 75-17-1898lvhk 0.5-1 tablets by mouth every eight hoursCyclobenzaprine HCl 5 MG 1/2 to 1 tab Orally Every 8 hours for 14 days Nov, Activediclofenac sodium 0.01 mg/mg topical gel (4 sources)Nonsteroidal Anti-inflammatory DrugStart: 08-19-2008Xztarnnoab Sodium 1 % apply 1-2 grams to affected area Externally Four times a day for 30 days January, Activedoxylamine succinate 25 mg oral tablet (11 sources)take 1 tablet by mouth once daily as needed for sleepdoxylamine (SLEEP AID, DOXYLAMINE,) 25 mg tablet Take 1 tablet (25 mg total) by mouth nightly as needed for sleep. Activeequate sleep aid (2 sources)Start: 87-72-3998yjpd 1 tablet by mouth once dailyequate sleep aid equate sleep aid, 1 tab, Oral, Daily Insomnia Start Date: 03/05/20 Status: Ordered Repeat number: 1Start: 72-21-6047xjdm 1 tablet by mouth once dailyequate sleep aid equate sleep aid, 1 tab, Oral, Daily Insomnia Start Date: 03/05/20 Status: Orderedgabapentin 300 mg oral capsule (9 sources)Anti-epileptic AgentStart: 57-96-4676eycoqqbcos 300 mg Cap See Instructions, TAKE 2 CAPSULES BY MOUTH TWICE DAILY, 2 (TWO) at night 1 inIN THE MORNING and one after lunch, # 360 EA, Refills(s) 0, Pharmacy: [facility], 165, cm, 10/02/24 11:39:00 EST, Height/Length Dosing, 97, kg, 10/02/24 11:39:00 EST, Weight Dosing Start Date: 10/03/24 Status: Ordered Quantity: 360.0 Unit: EA Repeat number: 1Start: 90-17-8668mkel 1 capsule by mouth twice daily after lunchgabapentin 300 mg Cap 600 mg = 2 cap(s), Oral, BID, 2 at night 1 in the am and one after lunch, # 360 cap(s), Refills(s) 0, Pharmacy: [facility], 165, cm, 06/26/24 15:02:00 EDT, Height /Length Dosing, 103.7, kg, 06/26/24 15:02:00 EDT, Weight Dosing Start Date: 07/24/24 Status: OrderedStart: 51-49-9275qcrk 1 capsule by mouth every eight hoursGabapentin 100 MG 1 capsule Orally three times a day for 30 days Aug, ActiveglipiZIDE 5 mg oral tablet (4 sources)SulfonylureaStart: 10-04-2023 End: 24-98-6175dbaq 1 tablet by mouth twice dailyglipiZIDE 5 mg Tab 5 mg = 1 tab(s), Oral, BID, # 180 tab(s), Refills(s) 3, Pharmacy: [facility], 165, cm, 10/04/23 11:01:00 EST, Height/Length Dosing, 107, kg, 10/04/23 11:01:00 EST, Weight Dosing Start Date: 10/04/23 Status: Ordered hydroCHLOROthiazide 12.5 mg / lisinopril 20 mg oral tablet (20 sources)Thiazide Diuretic, Angiotensin Converting Enzyme InhibitorStart: 35-87-0104qlkbvhzlljgxmkzmdef-lisinopril 12.5 mg-20 mg Tab 1 tab(s), Oral, Daily, 180 tab(s), Refill(s) 3, [facility], 165, cm, 10/02/24 11:39:00 EST, Height/Length Dosing, 97, kg, 10/02/24 11:39:00 EST, Weight Dosing Start Date: 10/02/24 Status: Ordered Quantity: 180.0 Unit: tab(s) Repeat number: 4Start: 91-61-8221emegcdxtgqpwvhidvkt-lisinopril 12.5 mg-20 mg Tab 1 tab(s), Oral, BID, 180 tab(s), Refill(s) 3, [facility], 165, cm, 10/04/23 11:01:00 EST, Height/Length Dosing, 107, kg, 10/04/23 11:01:00 EST, Weight Dosing Start Date: 10/04/23 Status: Orderedtake 1 tablet by mouth once in the morninglisinopril-hydroCHLOROthiazide (PRINZIDE,ZESTORETIC) 20-12.5 mg per tablet Take 1 tablet by mouth in the morning. Activetake 1 tablet by mouth in the morninglisinopril-hydroCHLOROthiazide 20-12.5 MG tablet Take 1 tablet by mouth in the morning. Activetake 1 tablet by mouth every twenty-four hours Lisinopril-hydroCHLOROthiazide 20-25 MG 1 tablet Orally Once a day for 30 day(s) Activemeloxicam 15 mg oral tablet (20 sources)Nonsteroidal Anti-inflammatory DrugStart: 25-53-1986osod 1 tablet by mouth in the morningmeloxicam (MOBIC) 15 mg tablet Take 1 tablet (15 mg total) by mouth in the morning. 10/11/2020 Lodpvw79 hr metFORMIN hydrochloride 500 mg extended release oral tablet (20 sources)BiguanideStart: 35-90-2621fijc 2 tablets by mouth twice daily Glucophage XR 500 mg Tab-ER 1,000 mg = 2 tab(s), Oral, BID, # 360 tab(s), Refills(s) 1, Pharmacy: [facility], 165, cm, 10/02/24 11:39:00 EST, Height/Length Dosing, 97, kg, 10/02/24 11:39:00 EST, Weight Dosing Start Date: 10/02/24 Status: Ordered Quantity: 360.0 Unit: tab(s) Repeat number: 2Start: 51-87-9288zjxh 2 tablets by mouth twice dailyGlucophage XR 500 mg Tab-ER 1,000 mg = 2 tab(s), Oral, BID, # 360 tab(s), Refills(s) 1, Pharmacy: [facility], 165, cm, 06/26/24 15:02:00 EDT, Height/Length Dosing, 103.7, kg, 06/26/2415:02:00 EDT, Weight Dosing Start Date: 07/24/24 Status: Orderedtake 2 tablets by mouth once daily at breakfastmetFORMIN (GLUCOPHAGE) 500 mg tablet Take 2 tablets (1,000 mg total) by mouth daily with breakfast.Activetake 1 tablet by mouth at mealtime, then take 1 tablet by mouth every twenty-four hours metFORMIN, OSM, (Fortamet) 500 MG 24 hr tablet Take 500 mg by mouth in the morning. Take with meals. Activetake 1 tablet by mouth in the morning, then take 1 tablet by mouth at bedtimemetFORMIN (GLUCOPHAGE) 500 mg tablet Take 1 tablet (500 mg total) by mouth in the morning and 1 tablet (500 mg total) before bedtime. ActiveMulti For Her - (9 sources)Multi For Her - as directed Orally Activemultivit with calcium,iron,min (MULTIPLE VITAMIN, WOMENS ORAL) (5 sources)multivit with calcium,iron,min (MULTIPLE VITAMIN, WOMENS ORAL) Take by mouth. Bhytpa71 hr oxybutynin chloride 5 mg extended release oral tablet (20 sources)Cholinergic Muscarinic AntagonistStart: 71-24-6485yxjm 1 tablet by mouth once dailyoxybutynin 5 mg ER Tab See Instructions, TAKE 1 TABLET BY MOUTH DAILY, # 90 tab(s), Refills(s) 3, Pharmacy: [facility], 165, cm, 10/02/24 11:39:00 EST, Height/Length Dosing, 97, kg, 10/02/24 11:39:00 EST, Weight Dosing Start Date: 10/02/24 Status: Ordered Quantity: 90.0 Unit: tab(s) Re peat number: 4Start: 79-47-5816hpwb 1 tablet by mouth once dailyoxybutynin 5 mg ER Tab See Instructions, TAKE 1 TABLET BY MOUTH DAILY, # 90 tab(s), Refills(s) 3, Pharmacy: [facility], 165, cm, 06/26/24 15:02:00 EDT, Height/Length Dosing, 103.7, kg, 06/26/24 15:02:00 EDT, Weight Dosing Start Date: 09/21/24 Status: Orderedtake 1 tablet by mouth every twenty-four hours in the morningoxybutynin XL (DITROPAN-XL) 5 mg 24 hr tablet Take 1 tablet (5 mg total) by mouth in the morning. Activetake 1 tablet by mouth every twenty-four hoursoxyBUTYnin Chloride 5 MG 1 tablet Orally qd for 30 day(s) Active pantoprazole 40 mg delayed release oral tablet (20 sources)Proton Pump InhibitorStart: 85-64-7421apdw 1 tablet by mouth in the morning, then take 1 tablet by mouth at bedtimepantoprazole (PROTONIX) 40 mg EC tablet Take 1 tablet (40 mg total) by mouth in the morning and 1 tablet (40 mg total) before bedtime. 11/24/2020 Activetake 1 tablet by mouth every twenty-four hoursPantoprazole Sodium 40 MG 1 tablet Orally Once a day ActiveProbiotic Digestive Aid Gummies (2 sources)Start: 44-57-8375Bewogifzr Digestive Aid Gummies See Instructions, Refill(s) 0, take 2 orally daily Start Date: 01/03/24 Status: Ordered Repeat number: 1Start: 13-31-3057Txqwocthc Digestive Aid Gummies See Instructions, Refill(s) 0, take 2 orally daily Start Date: 01/03/24 Status: OrderedPsyllium (11 sources)Start: 38-82-5166Qhcromqbe See Instructions, Take 3 gummies orally daily, Refills(s) 0 Start Date: 01/03/24 Status: Ordered Repeat number: 1Start: 11-23-2112Esyrsbtsa See Instructions, Take 3 gummies orally daily, Refills(s) 0 Start Date: 01/03/24 Status: Orderedtake 2 capsules by mouth every eight hours Metamucil 0.52 GM 2 capsules with 8 ounces of liquid Orally Three times a day for 30 day(s) Not-Taking/PRNMetamucil 0.52 GM 2 capsules with 8 ounces of liquid Orally Three times a day for 30 day(s) Not-Takingsemaglutide (1 source)Start: 10-31-5549hkbowpymnnu Refills(s) 0 Start Date: 03/28/25 Status: Ordered Repeat number: 1vitamin b12 0.1 mg oral tablet (2 sources)Vitamin S63Wudru: 52-62-3815rzhh 1 tablet by mouth once daily cyanocobalamin 100 mcg oral tablet 100 mcg = 1 tab(s), Oral, Daily, # 90 tab(s), Refills(s) 3, Pharmacy: [facility], 167.6, cm, 02/02/23 13:51:00 EDT, Height/Length Dosing, 111.4, kg,02/02/23 13:51:00 EDT, Weight Dosing Start Date: 02/02/23 Status: QikjsndN85 Fast Dissolve 5000 MCG as directed Orally Active Completed/Discontinued Medications MedicationDrug Class(es)DatesSig (Normalized)Sig (Original)acetaminophen 325 mg / oxyCODONE hydrochloride 5 mg oral tablet (14 sources)Opioid AgonistStart: 44-96-0754vdpb 1-2 tablets by mouth every four to six hours as neededPercocet 5-325 MG 1-2 tablet as needed Orally every 4-6 hrs for 7 days Dec, Not-Taking/PRNtake 1 tablet by mouth every four hours as needed for painoxyCODONE-acetaminophen (PERCOCET) 5-325 mg per tablet Take 1 tablet by mouth every 4 (four) hours as needed for pain. ActiveAspir-81 81 MG (9 sources)take 1 tablet by mouth once daily as neededAspir-81 81 MG 1 tablet Orally Once a day for 30 day(s) Not-Taking/PRNtake 1 tablet by mouth once daily Aspir-81 81 MG 1 tablet Orally Once a day for 30 day(s) Not-Takingbaclofen 5 mg oral tablet (5 sources)gamma-Aminobutyric Acid-ergic AgonistStart: 80-72-7559pagu 1 tablet by mouth three times daily at mealtime as neededBaclofen 5 MG 1 tablet with food or milk Orally Three times a day prn Dec, Not-Takingciprofloxacin 500 mg oral tablet (5 sources)Quinolone Antimicrobialtake 1 tablet by mouth every twelve hoursCipro 500 MG 1 tablet Orally every 12 hrs for 10 day(s) Not-Taking Problems Active Problems Problem ClassificationProblemDateDocumented DateEpisodic/ChronicAbdominal pain (6 sources)Abdominal tenderness; Translations: [Flank pain]Onset: 09-20-2024 87-29-9211FqmhggwzZaggyoaf of urinary tract (2 sources)Kidney mjokr15-54-5564QazhddxiOlxpleow (4 sources)Nuclear sclerotic cataract; Translations: [Age-related nuclear cataract, bilateral]Onset: 569550-55-6657FggtlpjFjtmndlo mellitus with complications (5 sources)Type 2 diabetes mellitus with unspecified complications; Translations: [Type 2 diabetes mellitus inobese]Onset: 586841-10-4089 ChronicComment on above:linked DM with peripheral neuropathy per OP CDI policy. Diabetes mellitus without complication (6 sources)Type 2 diabetes mellitus without complications; Translations: [Type 2 diabetes mellitus without complication]Onset: hronic Disorders of lipid metabolism (1 source)Pure hypercholesterolemia, unspecified; Translations: [PURE HYPERCHOLESTEROLEMIA UNSPEC]Onset: 92-62-9516WnilqpyJumsrilzavqhbo and diverticulitis (2 sources)Diverticular acxcvyn28-33-9222FqghcgeB Codes: Natural/environment (1 source)Other and unspecified overexertion or strenuous movements or postures, initial encounter; Translations: [OTH AND UNS OVREXRT/STRN MVMT/POS INT]Onset: 75-52-6617AwyxgxhtBogbuiqcq hypertension (5 sources)Essential (primary) hypertension; Translations: [Hypertensive disorder]Onset: 771685-74-6985LkzkhswQsiptylscftsa symptoms and ill- defined conditions (4 sources)Post-micturition incontinence ; Translations: [Urge incontinence of urine]98-47-2968ExtsisbOgomboamyrrjd symptoms and ill-defined conditions (10 sources)Herman hematuria; Translations: [Incomplete emptying of bladder] 78-86-4002TyrgwsffLeln and other crystal arthropathies (2 sources)Jiqc85-31-2318OnyjwxbOkytqdofk (2 sources)Nonalcoholic zzwzzwjhwuekbug19-41-5228IfgpdmuBfkvpepsgd disorders (1 source)Unspecified menopausal and perimenopausal disorder; Translations: [UNS MENOPAUSAL PERIMENOPAUSAL D/O]Onset: 69-39-9244OdgemppIuvavyrhtcprc gastroenteritis (2 sources)Chronic thijlqkb31-23-5278ZqgffffwXqdjfjirwvrnqm (9 sources)Osteoarthritis of hip; Translations: [Unilateral primary osteoarthritis, left hip]ChronicOther aftercare (1 source)senior care (current) use of oral hypoglycemic drugs; Translations: [SENIOR LIVING USE ORAL HYPOGLYCEMIC DX]Onset: 21-47-5385YecyhqnuPwhwr aftercare (1 source)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 ad terminal 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 operator (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; Translations: [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 THERAPY]Onset: 20-69-3275QudvjkxhWprzp circulatory disease (2 sources)Elevated blood-pressure reading, without diagnosis of hypertension; Translations: [Elevated blood-pressure reading, without diagnosis of hypertension]Onset: 27-47-1144IpltlimeTlrob connective tissue disease (9 sources)History of repair of hip joint; Translations: [Presence of left artificial hip joint]ChronicOther connective tissue disease (9 sources)History of total hip arthroplasty; Translations: [Presence of left artificial hip joint]ChronicOther connective tissue disease (9 sources)History of total knee arthroplasty; Translations: [Presence of left artificial knee joint]ChronicOther connective tissue disease (4 sources)Achilles tendinitis, right legEpisodicOther diseases of bladder and urethra (2 sources)Urethral bsshyzhac44-81-8843CrndyllaNrrfs ear and sense organ disorders (2 sources)Sensorineural hearing loss, bilateral; Translations: [Sensorineural hearing loss, bilateral]71-46-5050NmrrwdsVoxjx ear and sense organ disorders (2 sources)Bilateral tinnitus; Translations: [Tinnitus, bilateral]01-30-2025 EpisodicOther ear and sense organ disorders (2 sources)Impacted cerumen of bilateral ears; Translations: [Impacted cerumen, bilateral]10-99-7578HzilyabeHchnd gastrointestinal disorders (1 source)Irritable bowel syndrome without diarrhea; Translations: [IRRITABLE BOWEL SYND W/O DIARRHEA]Onset: 46-69-2120HtrmnzhHatfe injuries and conditions due to external causes (1 source)Unspecified injury of left Achilles tendon, initial encounter; Translations: [UNS INJ LT ACHILLES TENDON INITIAL]Onset: 35-19-6975TejtxjhmWrocb liver diseases (1 source)Fatty (change of) liver, not elsewhere classified; Translations: [FATTY CHANGE LIVER NEC]Onset: 80-55-6786VztmexfVykiw liver diseases (1 source)Unspecified cirrhosis of liver; Translations: [UNSPECIFIED CIRRHOSIS OF LIVER]Onset: 30-65-6677QbdbtrqVddmh nervous system disorders (3 sources)Neuropathy; Translations: [Polyneuropathy, unspecified]ChronicOther nervous system disorders (3 sources)Polyneuropathy, unspecifiedChronicOther nervous system disorders (2 sources)Peripheral nerve [place]22-43-5932IbzfhwbVdtqw non-traumatic joint disorders (4 sources)Pain in left ankle and joints of left foot; Translations: [PAIN IN LEFT ANKLE]Onset: 03-67-3386BisrqzmlOkhen nutritional; endocrine; and metabolic disorders (1 source)Metabolic syndrome; Translations: [METABOLIC SYNDROME]Onset: 80-46-9697RpulesoAcekz nutritional; endocrine; and metabolic disorders (4 sources)Body mass index 30+ - tkjncse65-21-3742DqrxttqPidoi nutritional; endocrine; and metabolic disorders (2 sources)Morbid -44-1779UczaqnaMbphktcklg and visceral atherosclerosis (2 sources)Atherosclerosis of qoyin87-39-1427YsbfdoaSfofvht on above:added per 10/03/2023 query response.Residual codes; unclassified (1 source)Obstructive sleep apnea (adult) (pediatric); Translations: [OBSTRUCTIVE SLEEP APNEA]Onset: 58-67-1646QolcpkgBcwyqywo codes; unclassified (2 sources)Obstructive sleep apnea bnkyebdi60-57-9268LgbdhhlYzodrwqr codes; unclassified (1 source)Acquired absence of other specified parts of digestive tract; Translations: [ACQ ABSENCE OTH PART DIGESTV TRACT]Onset: 63-58-2588Glwwjclm Residual codes; unclassified (2 sources)FH: Aortic -15-1863XtpapsncDwyynll detachments; defects; vascular occlusion; and retinopathy (8 sources)Epiretinal membrane of right eye; Translations: [Puckering of macula, right eye]Onset: 830361-57-0254RbkfrzkYhcrpykzpr arthritis and related disease (4 sources)Inflammatory polyarthropathy; Translations: [INFLAMMATORY POLYARTHROPATHY]Onset: 94-02-4779UvbgtajLlywyhthdcy; intervertebral disc disorders; other back problems (2 sources)Ibmjcugk77-09-0917ZhavsatcYsvlbuo and strains (12 sources)Strain of right Achilles tendon, initial encounter; Translations: [Strain of left Achilles tendon, subsequent encounter]Onset: 72-88-9350Mhomuejd Unclassified (2 sources)Drug therapy -39-5724Qhgxisvbgang (2 sources)Finding of sensation of xgroefp98-22-1787Beqwegpsmgkf (2 sources)Patient encounter -47-1938Ubtexbuzykwa (1 source)Diabetic Eye ExamOnset: 28-91-8657Kemngtipcguj (1 source)Kws--57nhkrdr87-12-2429Ybmxigvkkcve (1 source)Right epiretinal membraneOnset: 04-10-2025 Past or Other Problems Problem ClassificationProblemDateDocumented DateEpisodic/ChronicNonmalignant breast conditions (1 source)Unspecified lump in the left breast, upper inner quadrant; Translations: [UNS LUMP IN LT BREAST UPRINR QUAD]Onset: 95-30-8275FyivkuwzWdemd screening for suspected conditions (not mental disorders or infectious disease) (9 sources)Other abnormal and inconclusive findings on diagnostic imaging of breast; Translations: [Encounter for screening mammogram for malignant neoplasm of breast]Onset: 85-27-7454Sczookxs Results Test NameValueInterpretationReference RangeFacilityFamily Medicine Office/Clinic Noteon 16-27-6092Rroxyr Medicine Office/Clinic NoteUnion [facility]/Clinic Note HPI Staff Pt is [...] have been running 120's. will continue semaglutide 1.8order faxed to [facility]. will take one metformin daily. will recheck HGBA1C in 3 months. 2. Right hip pain (M25.551: Pain in right hip) right hip pain worsening. xray ordered. pt would like referral to pain management for injections tohelp with pain. prefers [place] [facility]. Ordered: MA Mamm Screen w/CAD [...] lunch, # 360 EA, Refills(s) 0, Pharmacy: [facility], 165, cm, 10/02/24 11:39:00 EST, Height/Length Dosing, 97, kg, 10/02/24 11:3... gabapentin, 300 mg = 1 cap(s), Oral, Bedtime, # 90 cap(s), Refills(s) 1, Pharmacy: [facility], 165, cm, 06/27/25 14:48:00 EDT, Height/Length Dosing, 85.7, kg, 06/27/25 14:48:00 EDT, Weight Dosing metformin, 1,000 mg = 2 tab(s), Oral, BID, # 360 tab(s), Refills(s) 1, Pharmacy: [email or web address], 165, cm, 10/02/24 11:39:00 EST, Height/Length [...] mg= 1 cap(s), Oral, Bedtime, 1 refills hydrochlorothiazide-lisinopril 12.5 mg-20 mg Tab, 1 tab(s), Oral, Daily, 3 refills meloxicam 15 mg Tab, 15 mg= 1 tab(s), Oral, Daily, 3 refills Metamucil, See Instructions metformin 500 mg ER Tab, 500 mg= 1 tab(s), Oral, BID Misc DME Prescription, See Instructions, 3 refills Misc DME Prescription, See Instructions, 3 refills oxybutynin 5 mg ER T (more content not included)...[facility] HospitalComment on above:Result Comment: Electronically Signed By: Mary Trotter\.br\Date and Time Signed: 06/27/25 16:04 EDTNo Panel Information [id number]ny Health 86-93-6540DmfeknlycSpfnjggee From: Mary Trotter To: [facility] - Clinical; Sent: 04/01/2025 17:40:07 EDT Show up: 04/01/2025 17:40:00 EDT Subject: Ambulatory Reminder Due Date/Time: 04/02/2025 17:39:00 EDT HGBA1C is 5.6 this is great. Results: Date Result Name Value Ref Range 03/28/2025 15:23 Hgb A1C % 5.6 % ( - <=5.9) Left detailed message on pt's VM. (identified herself) Pt is to call with any questions.[facility] HospitalCHEMISTRYOrdered By: Nicolle Rhodes on 32-61-1127RfN8n (Bld) [Mass fraction]5.6 %Normal<=5.9%[facility] ChemAutoSSFaamesbury health center Medicine Office/Clinic Noteon 21-06-8113Nkjtep Medicine Office/Clinic NoteFaamesbury health center Medicine Office/Clinic Note HPI Staff Patient is [...] HGBA1C today. will send in refills for 3months of 1.8mg dose. pt is currently taking [...] planning/counseling discussion (Z71.89: Other specified counseling) Orders: hydrochlorothiazide-lisinopril, 1 tab(s), Oral, Daily, 180 tab(s), Refill(s) 3, [facility], 165, cm, 10/02/24 11:39:00 EST, Height/Length Dosing, 97, kg, 10/02/24 11:39:00 EST, WeightDosing metformin, 1,000 mg = 2 tab(s), Oral, BID, # 360 tab(s), Refills(s) 1, Pharmacy: [facility] #[facility], 165, cm, 10/02/24 11:39:00 EST, Height/Length [...] mg= 2 tab(s), Oral, BID, 1 refills hydrochlorothiazide-lisinopril 12.5 mg-20 mg Tab, 1 tab(s), Oral, Daily, 3 refills meloxicam 15 mg Tab, 15 mg= 1 tab(s), Oral, Daily, 3 refills Metamucil, See Instructions Misc DME Prescription, See Instructions, 3 refills [...] to obtain, Unable to obtain, Foggy mind) Sulfabenzamide/Sulfacetamide/Sulfathiazole (Unknown) Vioxx nalbuphine (Clouded consciousness, Unable to obtain, Unknown) Social History Alcohol Current. Liquor. 1-2 times per week., 10/02/2024 Substance Abuse - Denies Substance Abuse, 03/12/2020 Never., 10/02/2024 Tobacco - Denies Tobacco Use, 03/12/2020 Never (less than 100 in lifetime) Tobacco (more content not included)...Normal [facility] InstituteComment on above:Result Comment: Electronically Signed By: Mary Trotter\.rosalva\Date and Time Signed: 03/28/25 15:43 JXYVrcK0i on 24-16-8457OzL8y (Bld) [Mass fraction]5.6 %Normal<=5.9[facility] InstituteComment on above:Performed By: #### [id number] #### [facility] [address] [place], [place] [address]Rm Panel Informationon 88-44-0837UhfVmmadaParma Community General Hospital Medicine Office/Clinic Noteon 63-82-0018Lzypnp Medicine Office/Clinic NoteFami Medicine Office/Clinic Note Chief Complaint 3m follow up Concerns about diabetes management and medication coverage [facility] Staff Daksha is a 73 year old [...] the use of Ozempic and medications from [facility]. She has successfully reduced her A1c to 5.8, indicating an improvement over thelast three months. She is currently on a dose of 1.8, which has been effective for her weight loss.Additionally, she experiences challenges regarding medication affordability, particularly [...] level of consciousness appropriate for age, CN II- XII intact, motor strength equal & normal bilaterally, [...] am and one after lunch, # 360 cap(s),Refills(s) 0, Pharmacy: [facility] #[facility], 165, cm, 10/02/24 11:39:00 EST, Height/Length Dosing, 97, kg, 10/02/24 11:39:00 EST, Weight Dosing hydrochlorot (more content not included)...[facility] Comment on above:Result Comment: Electronically Signed By: Audie BIGGS, Rimma Castillobr\Date and Time Signed: 10/02/24 12:22 ESTCHEMISTRYOrdered By: SYSTEM SYSTEM on 48-44-0749Kllvmzl [Mass/Vol]4.3 g/dLNormal3.3 - 5.0 gm/dLRemisol Chem Albumin DL <= 20 mg/L (U) [Mass/Vol]8.8 mg/dLHigh0.0 - 1.9 mg/dLRemisol Chem Albumin/Creatinine DL <= 20 mg/L (U) [Mass ratio]50.9 mg/gm CrHigh0.0 - 30.0 mg/gm CrRemisol ChemComment on above:Interpretive Data: 30-300 mg/g Cr indicates an increased risk for diabetic nephropathy. >300 mg/g Cr is consistent with clinical nephropathy.Albumin/Globulin [Mass ratio]1.4 {ratio}Normal1.1 - 2.2Remisol ChemALP [Catalytic activity/Vol]35 [iU]/yHcmypj17 - 98 Int._Unit/LRemisol ChemALT No additional P-5'-P [Catalytic activity/Vol]16 [iU]/dNormal6 - 46 Int._Unit/LRemisol ChemAnion gap [Moles/Vol] 14 mmol/LNormal6 - 16 mEq/LRemisol ChemAST [Catalytic activity/Vol]18 [iU]/d Normal5 - 43 Int._Unit/LRemisol ChemBilirubin [Mass/Vol]0.6 mg/dLNormal0.0 - 1.1 mg/dLRemisol ChemCalcium [Mass/Vol]9.0 mg/dLNormal8.9 - 11.1 mg/dLRemisol Chem Chloride [Moles/Vol]100 mmol/FExl440 - 111 mmol/LRemisol ChemCholesterol [Mass/Vol]183 mg/kSAbjguy898 - 200 mg/dLRemisol ChemCholesterol in HDL [Mass/Vol]44 mg/dLInvalid Interpretation CodeRemisol ChemComment on above:Result Comment: '>= 60 LOW RISK' '<= 40 HIGH RISK'Cholesterol in LDL [Mass/Vol]96 mg/dLNormal<=129mg/dLRemisol ChemCholesterol in VLDL [Mass/Vol]62 mg/dLHigh7 - 40 mg/dLRemisol ChemCO2 [Moles/Vol]26 mmol/QIqrvcb84 - 31 mmol/LRemisol ChemCreatinine [Mass/Vol]1.0 mg/dLNormal0.5 - 1.3 mg/dLRemisol YwksdJQM67 mL/min/1.73 u4Kzwozu>=59mL/min/1.73 q2Oobcqga ChemGlobulin (S) [Mass/Vol]3.1 g/dLNormal1.4 - 4.0 gm/dLRemisol Chem Glucose [Mass/Vol]110 mg/xXIpuqfg60 - 199 mg/dLRemisol ChemPotassium [Moles/Vol] 4.2 mmol/LNormal3.5 - 5.3 mmol/LRemisol ChemProtein [Mass/Vol]7.4 g/dLNormal6.0 - 7.8 gm/dLRemisol ChemSodium [Moles/Vol]136 mmol/QWminvm813 - 145 mmol/LRemisol ChemTriglyceride [Mass/Vol]309 mg/dLHigh<=149mg/dLRemisol ChemU Ampouyzfdf821.8 mg/dLInvalid Interpretation CodeRemisol ChemUrea nitrogen [Mass/Vol]16 mg/dL Normal5 - 21 mg/dLRemisol ChemUrea nitrogen/Creatinine [Mass ratio]16 mg/mg Xopcur23 - 20Remisol ChemCHEMISTRYOrdered By: Ana Maria Chao on 09-28-2024 HbA1c (Bld) [Mass fraction]5.8 %Normal<=5.9%[facility] ChemAutoSSCMPon 09-28-2024 Albumin [Mass/Vol]4.3 g/dLNormal3.3-5.0[facility] HospitalComment on above:Performed By: #### [id number] #### [facility] [address], [place] [address]Ycmjegx/Globulin (S) [Mass conc ratio]1.9Swrqkl9.1-2.2FSelect Medical OhioHealth Rehabilitation Hospital - DublinComment on above:Performed By: #### [id number] #### [facility] [address] [place] [address] 230[address]BZZ [Catalytic activity/Vol]35 Int._Unit/YAtqcyt01-08ZaxonoRiverview Health InstituteComment on above:Performed By: #### [id number] #### [facility] [address], [place] [address]IDR No additional P-5'-P [Catalytic activity/Vol]16 Int._Unit/L Normal6-46[facility] InstituteComment on above:Performed By: #### [id number] #### [facility] [address] [place] [address]Vqbmc gap [Moles/Vol]14 mmol/LNormal6-16[facility] InstituteComment on above:Performed By: #### [id number] #### [facility] [address] [place] [address] 55510HHF [Catalytic activity/Vol]18 Int._Unit/LNormal5-43[facility] InstituteComment on above:Performed By: #### [id number] #### [facility] [address] [place] [address]Gsdtltqsj [Mass/Vol]0.6 mg/dLNormal0.0-1.1FSelect Medical OhioHealth Rehabilitation Hospital - DublinComment on above:Performed By: #### [id number] #### [facility] [address] [place] [address]Ksqpbjg [Mass/Vol]9.0 mg/dLNormal8.9-11.1FSelect Medical OhioHealth Rehabilitation Hospital - DublinComment on above:Performed By: #### [id number] #### [facility] [address] [place] [address]Iafassdk [Moles/Vol]100 mmol/GXxx833-034AbgdnwRiverview Health InstituteComment on above:Performed By: #### [id number] #### [facility] [address], [place] [address]RJ5 [Moles/Vol]26 mmol/SUpvwet70-52RblcjdRiverview Health Institute Comment on above:Performed By: #### [id number] #### [facility] [address], [place] [address]Xzwwcjmyzk [Mass/Vol]1.0 mg/dLNormal0.5-1.3FSelect Medical OhioHealth Rehabilitation Hospital - DublinComment on above:Performed By: #### [id number] #### [facility] [address], [place] [address]Ugixszhk (S) [Mass/Vol]3.1 g/dLNormal1.4-4.0[facility] InstituteComment on above:Performed By: #### [id number] #### [facility] [address], [place] [address]Ytqictt [Mass/Vol]110 mg/sKCfuydf02-329CddtliRiverview Health InstituteComment on above:Performed By: #### [id number] #### [facility] [address], [place] [address]Ewnnkokam [Moles/Vol]4.2 mmol/LNormal3.5-5.3FSelect Medical OhioHealth Rehabilitation Hospital - DublinComment on above:Performed By: #### [id number] #### [facility] [address], [place] [address]Udycplt [Mass/Vol]7.4 g/dLNormal6.0-7.8[facility] InstituteComment on above:Performed By: #### [id number] #### [facility] [address], [place] [address]Yygkzp [Moles/Vol]136 mmol/SKljkcz119-684BqukoaRiverview Health InstituteComment on above:Performed By: #### [id number] #### [facility] [address], [place] [address]Ecme nitrogen [Mass/Vol]16 mg/dLNormal5-21R[facility] Health InstituteComment on above:Performed By: #### [id number] #### [facility] [address], [place] [address]Wsas nitrogen/Creatinine [Mass ratio]16 No KdmtdWroreq12-12 [facility] InstituteComment on above:Performed By: #### [id number] #### [facility] [address], [place] [address]YjuW8opa 47-80-0381AmC2e (Bld) [Mass fraction]5.8 %Normal<=5.9 [facility] InstituteComment on above:Performed By: #### [id number] #### [facility] [address], [place] [address]Cdmkm Panelon 21-13-0890Rumlvlkhgbs [Mass/Vol]183 mg/dLNormal 120-200R[facility] InstituteComment on above:Performed By: #### [id number] #### [facility] [address], [place] [address]Dcfeabuafvm in HDL [Mass/Vol]44 mg/dLInvalid Interpretation CodeRiverview Health InstituteComment on above:Result Comment: '>= 60 LOW RISK' '<= 40 HIGH RISK'Performed By: #### [id number] #### [facility] [address], [place] [address]Osxcibrzhyz in LDL [Mass/Vol]96 mg/dLNormal<=129R[facility] Health InstituteComment on above:Performed By: #### [id number] #### [facility] [address], [place] [address]Bqpwwmwhvjc in VLDL [Mass/Vol]62 mg/dLHigh7-40[facility] InstituteComment on above:Performed By: #### [id number] #### [facility] [address], [place] [address]Poiqmumyobsd [Mass/Vol]309 mg/dLHigh<=149R[facility] Health InstituteComment on above:Performed By: #### [id number] #### [facility] [address], [place] [address]K MA/Cr Ratioon 11-10-3599Abakoqf DL <= 20 mg/L (U) [Mass/Vol] 8.8 mg/dLHigh0.0-1.9[facility] InstituteComment on above:Performed By: #### [id number] #### [facility] [address], [place] [address]Ranvfbc/Creatinine DL <= 20 mg/L (U) [Mass ratio]50.9 mg/gm Cr High.0-30.0[facility] InstituteComment on above:Result Comment: 30-300 mg/g Cr indicates an increased risk for diabetic nephropathy. >300 mg/g Cr is consistent with clinical nephropathy.Performed By: #### [id number] #### [facility] [address], [place] [address]E Sjjbomnaud561.8 mg/dLInvalid Interpretation CodeRiverview Health InstituteComment on above:Performed By: #### [id number] #### [facility] [address], [place] [address]gEVRpw 35-89-8324qTPZ30 mL/min/1.73 s5Isvwrb>=59R[facility]view Health InstituteComment on above:Performed By: #### [id number] #### [facility] [address], [place] [address]FXTZT METABOLIC PANELon 03-23-0677Fhmybgs [Mass/Vol]9.8 mg/dL Normal8.4-10.2GPiedmont McDuffieComment on above:Order Comment: [facility] has implemented the eGFR calculation approach that does not have a coefficient for race that conforms to the NKF-ASN Task Force Recommendations.Performed By: #### [id number] #### [facility] [address] [place], [place] [address] Ashlee Hull M.D. [id number] WITH AUTO DIFFERENTIALon 41-02-4186PIBT NRBC0.0 %NormalSteele Memorial Medical CenterComment on above:Performed By: #### [id number] #### [facility] [address] [place] [address] Ashleelaurel Hull M.D. [id number] NRBC ABS COUNT0.00 K/mcLNormal0.00-0.00[facility] Comment on above:Performed By: #### [id number] #### [facility] [address] [place] [address] Ashleelaurel Hull M.D. [id number] ABSOLUTE COUNT0.03 K/mcLNormal0.00-0.30[facility] Comment on above:Performed By: #### [id number] #### [facility] ([facility]) [facility] [address] [place] [address] Ashleelaurel Hull M.D. [id number]/100 WBC (Bld)0.4 %NormalSteele Memorial Medical CenterComment on above:Performed By: #### [id number] #### [facility] [address] [place] [address] Ashleelaurel Hull M.D. [id number] (Bld) [#/Vol]0.06 10*3/uLNormal0.00-0.50[facility] Medical CenterComment on above:Performed By: #### [id number] #### [facility]) [facility] [address] [place] [address] Ashleelaurel Hull M.D. [id number]/100 WBC (Bld)0.8 %NormalSteele Memorial Medical CenterComment on above:Performed By: #### [id number] #### [facility] ([facility] [address] [place] [address] Ashleelaurel Hull M.D. [id number] distribution width (RBC) [Ratio]12.5 %Dzvxqe17.6-14.8S[facility] Memorial Medical CenterComment on above:Performed By: #### [id number] #### [facility]) [facility] [address] [place], [place] [address] Ashlee Hull M.D. [id number] (Bld) [Volume fraction]38.3 %Sjwtfk34.0-46.0[facility] Medical CenterComment on above:Performed By: #### [id number] #### [facility] [address] [place] [address] Ashlee Hull M.D. [id number] (Bld) [Mass/Vol]12.9 g/uMCliaua36.0-16.0[facility] Medical CenterComment on above:Performed By: #### [id number] #### [facility] [address] [place] [address] Ashlee Hull M.D. [id number] ABSOLUTE0.02 K/mcLNormal0.00-0.30[facility] Medical CenterComment on above:Performed By: #### [id number] #### [facility] [address] [place] [address] Ashlee Hull M.D. [id number] PERCENT0.30 %[facility] HospitalComment on above:Result Comment: The IG parameter is the percentage of metamyelocytes, myelocytes and promyelocytes.An immature granulocyte count (IG) of 1% or more suggests the possibility of infection, an IG countof 3% is very likely related to an infection.Performed By: #### [id number] #### [facility] [address] [place] [address] Ashlee Hull M.D. [id number] (Bld) [#/Vol]2.89 10*3/uLNormal0.90-4.00[facility] Medical CenterComment on above:Performed By: #### [id number] #### [facility] [address] [place] [address] Ashlee Hull M.D. [id number]/100 WBC (Bld)39.3 %[facility] HospitalComment on above:Performed By: #### [id number] #### [facility] [address] [place] [address] Ashlee Hull M.D. [id number] (RBC) [Entitic mass]30.9 xqWgliws50.0-34.0[facility] Comment on above:Performed By: #### [id number] #### [facility] [address] [place] [address] Ashlee Hull M.D. [id number] (RBC) [Entitic vol]91.6 lVRusksh99.0-100.0[facility] Comment on above:Performed By: #### [id number] #### [facility] [address] [place] [address] Ashlee Hull M.D. [id number] CORPUSCULAR HEMOGLOBIN CONC33.7 g/hBIuxnke51.0-37.0[facility] Medical CenterComment on above:Performed By: #### [id number] #### [facility] [address] [place] [address] Ashlee Hull M.D. [id number] (Bld) [#/Vol]0.43 10*3/uLNormal0.30-0.90[facility] Comment on above:Performed By: #### [id number] #### [facility] [address] [place] [address] Ashlee Hull M.D. [id number]/100 WBC (Bld)5.8 %[facility] HospitalComment on above:Performed By: #### [id number] #### [facility] [address] [place] [address] Ashlee Hull M.D. [id number] ABSOLUTE COUNT3.93 K/mcLNormal1.70-7.00[facility] Medical CenterComment on above:Performed By: #### [id number] #### [facility] [address] [place] [address] Ashleelaurel Hull M.D. [id number]/100 WBC (Bld)53.4 %NormalSteele Memorial Medical CenterComment on above:Performed By: #### [id number] #### [facility] [address] [place] [address] Ashleelaurel Hull M.D. [id number] mean volume (Bld) [Entitic vol]8.7 fLLow9.4-12.4GPiedmont McDuffieComment on above:Performed By: #### [id number] #### [facility] [address] [place] [address] Ashleelaurel Hull M.D. [id number] (Bld) [#/Vol]234 10*3/bPXxwvqo039-850[facility] Comment on above:Performed By: #### [id number] #### [facility] [address] [place] [address] Ashlee Hull M.D. [id number] (Bld) [#/Vol]4.18 10*6/uLNormal4.00-5.20[facility] Comment on above:Performed By: #### [id number] #### [facility] [address] [place] [address] Ashleelaurel Hull M.D. [id number] (Bld) [#/Vol]7.36 10*3/uLNormal4.50-11.00[facility] Comment on above:Performed By: #### [id number] #### [facility] [address] [place] [address] Ashlee Hull M.D. [id number] 7on 56-74-6306Bqpao gap [Moles/Vol]22 mmol/DVadg53-98CghkfSteele Memorial Medical CenterComment on above:Order Comment: [facility] has implemented the eGFR calculation approach that does not have a coefficient for race that conforms to the NKF-ASN Task Force Recommendations.Performed By: #### [id number] #### [facility] ([facility] [address] [place] [id number] Ashlee Hull M.D. [id number] By: #### [id number] #### [facility] ([facility] [address] [place] [address] Ashlee Hull M.D. [id number] [Moles/Vol]95 mmol/ULqx07-479LtrlmSteele Memorial Medical CenterComment on above:Order Comment: [facility] has implemented the eGFR calculation approach that does not have a coefficient for race that conforms to the NKF-ASN Task Force Recommendations.Performed By: #### [id number] #### [facility] ([facility] [address] [place] [address] Ashlee Hull M.D. [id number] By: #### [id number] #### [facility] [address] [place] [address] Ashlee Hull M.D. [id number] [Mass/Vol]1.06 mg/dLNormal0.60-1.10[facility] Comment on above:Order Comment: [facility] has implemented the eGFR calculation approach that does not have a coefficient for race that conforms to the NKF-ASN Task Force Recommendations.Performed By: #### [id number] #### [facility] [address] [place] [address] Ashlee Hull M.D. [id number] By: #### [id number] #### [facility] [address] [place] [address] Ashlee Hull M.D. [id number] mL/min/1.73 m2Low>=60[facility] Medical CenterComment on above:Order Comment: [facility] has implemented the eGFR calculation approach that does not have a coefficient for race that conforms to the NKF-ASN Task Force Recommendations.Result Comment: Estimated GFR was calculated using the 2020 CKD-EPI creatinine equation. Estimated GFR was calculated using the 2020 CKD-EPI creatinine equation. Performed By: #### [id number] #### [facility] ([facility] [address] [place] [address] Ashlee Hull M.D. [id number] Comment: Estimated GFR was calculated using the 2020 CKD-EPI creatinine equation.Performed By: #### [id number] #### [facility] ([facility]) [facility] [address] [place] [address] Ashlee Hull M.D. [id number] [Mass/Vol]107 mg/hSYnfl59-79Sbavl63 Green StreetComment on above:Order Comment: [facility] has implemented the eGFR calculation approach that does not have a coefficient for race that conforms to the NKF-ASN Task Force Recommendations.Performed By: #### [id number] #### [facility] ([facility] [address] [place] [address] Ashlee Hull M.D. [id number] By: #### [id number] #### [facility] ([facility] [address] [place] [address] Ashlee Hull M.D. [id number] (Bld) [Moles/Vol]23 mmol/DZqjszh18-49QsfbzSteele Memorial Medical CenterComment on above:Order Comment: [facility] has implemented the eGFR calculation approach that does not have a coefficient for race that conforms to the NKF-ASN Task Force Recommendations.Performed By: #### [id number] #### [facility] ([facility] [address] [place] [address] Ashlee Hull M.D. [id number] By: #### [id number] #### [facility] [address] [place] [address] Ashlee Hull M.D. [id number] [Moles/Vol]4.8 mmol/LNormal3.5-5.1GPiedmont McDuffie Comment on above:Order Comment: [facility] has implemented the eGFR calculation approach that does not have a coefficient for race that conforms to the NKF-ASN Task Force Recommendations.Performed By: #### [id number] #### [facility] ([facility]) [facility] [address] [place] [address] Ashlee Hull M.D. [id number] By: #### [id number] #### [facility] ([facility]) [facility] [address] [place] [address] Ashlee Hull M.D. [id number] [Moles/Vol]135 mmol/AFvmfca382-323DppeoSteele Memorial Medical CenterComment on above:Order Comment: [facility] has implemented the eGFR calculation approach that does not have a coefficient for race that conforms to the NKF-ASN Task Force Recommendations.Performed By: #### [id number] #### [facility] ([facility]) [facility] [address] [place] [address] Ashlee Hull M.D. [id number] By: #### [id number] #### [facility] ([facility]) [facility] [address] [place] [address] Ashlee Hull M.D. [id number] nitrogen [Mass/Vol]21 mg/dLNormal8-25[facility] Medical CenterComment on above:Order Comment: [facility] has implemented the eGFR calculation approach that does not have a coefficient for race that conforms to the NKF-ASN Task Force Recommendations.Performed By: #### [id number] #### [facility] ([facility]) [facility] [address] [place] [address] Ashlee Hull M.D. [id number] By: #### [id number] #### [facility] ([facility]) [facility] [address] [place] [address] Ashlee Hull M.D. [id number] nitrogen/Creatinine [Mass ratio]19.8 mg/xfSsyswp43.0-20.0[facility] Medical CenterComment on above:Order Comment: [facility] has implemented the eGFR calculation approach that does not have a coefficient for race that conforms to the NKF-ASN Task Force Recommendations.Performed By: #### [id number] #### [facility] ([facility]) [facility] [address] [place], [place] [address] Ashlee Hull M.D. [id number] By: #### [id number] #### [facility] ([facility]) [facility] [address] [place], [place] [address] Ashlee Hull M.D. [id number] ABDOMEN PELVIS WITHOUT CONTRASTon 82-07-9466WK ABDOMEN PELVIS WITHOUT CONTRASTEXAMINATION: CT OF THE ABDOMEN AND PELVIS WITHOUT [...] No evidence of significant hernia or lymphadenopathy. Peritoneum/Retroperitoneum: No retroperitoneal lymphadenopathy or acute mesenteric findings. [...] post cholecystectomy and hysterectomy. MS/lab Workstation ID: [id number] Dictated by: MAGGY LUIS on TueSep 20, 2024 4:01:25 PM EST Transcribed by: BEATA AHN on TueSep 20, 2024 4:04:27 PM EST Finalized by: MAGGY LUIS on TueSep 23, 2024 6:46:42 PM [facility] HospitalComment on above:Order Comment: Injury/Trauma or Illness?:Illness/Other How long have you had these symptoms (acute/chronic)?:Acute Reason for exam?:LLQ abdominal pain this morning Type of Exam?:Initial Additional signs and symptoms?:noED Prov Noteon 52-23-3863[facility] NoteEMERARKANS[facility] PROVIDER NOTE [facility] Encounter Date: 09/20/24 History obtained [...] cholecystectomy and hysterectomy (more content not included)... [facility] HospitalAmbulatory Visit Summaryon 56-52-3608Gzjzsqhcqz Visit SummaryAmbulatory Visit Summary DAKSHA CORLEY :1950 Visit Date:06/26/2024 [...] mg Cap) glipiZIDE (glipiZIDE 5 mg Tab) hydrochlorothiazide-lisinopril (hydrochlorothiazide-lisinopril 12.5 mg-20 mg Tab) meloxicam (meloxicam 15 [...] Appointments Tuesday 9:20 AM EST With: Where: [address] [address]- Tuesday 1:15 PM EST With: Audie BIGGS, Rimma Alfredo Where: [address] [address]- 2024 2:30 PM EDT With: Where: [address] [address]- You Need to Complete the Following Comprehensive [...] Missing, Print Label By Order Location Urine Microalbumin/Creatinine Ratio, Urine, Routine collect, 06/26/24, Order for [...] By Mouth 2 times a day Unchanged hydrochlorothiazide-lisinopril (hydrochlorothiazide-lisinopril 12.5 mg-20 mg Tab) 1 Tablets By [...] Unchanged Misc Prescription (BAYLEE (more content not included)...[facility] Office/Clinic Noteon [id number] Medicine Office/Clinic NoteFaamesbury health center Medicine Office/Clinic Note Chief Complaint Subsequent Medicare [...] Precautions for MERS/COVID-19 : N/A Rachel Bolanos Zafar - 06/26/2024 14:44 EDT Medicare/Medicaid Summary Chief [...] Present : No actual or suspected pain AlbinRachel Zafar Clements 06/26/2024 14:44 EDT Hearing and Vision Screening FT FT Whisper Test Comments : no hearing deficits Vision Screen Comments : wears corrective lens. Goes to [place] yearly. AlbinBrendajhon Stephen - 06/26/2024 14:44 EDT Advance Directive FT Advance Directive : No Patient Wishes to Receive Further Information on Advance Directives : No Organ Donation Consent : No AlbinBrendajhon Stephen - 06/26/2024 14:44 EDT Procedures / Surgeries FT - Procedure History (As Of: 06/26/2024 15:02:21 EDT) Procedure Dt/Tm: 03/20/2020 ; Provider: Medhat BOLANOS MD; Anesthesia Minutes: 0 ; Procedure Name: Cystoscopy and retrograde pyelography ; Procedure Minutes: 0 ; Comments: 03/20/2020 15:21 EDT - Melida Estrella RN right ; Last Reviewed Dt/Tm: 06/26/2024 14:49:17 EDT Anesthesia Minutes: 0 ; Procedure Name: Total knee arthroplasty ; Procedure Minutes: 0 ; Comments: 03/20/2020 7:18 EDT Leigh Ann Lewis RN left ; Last Reviewed Dt/Tm: 06/26/2024 [...] hurt by drinking: No. Ready to change: No.Household alcohol concerns: No. Comments: 06/26/2024 14:50 - Rachel Bolanos: Patient reports 1 mixed drink 2-4 times a month. (Last Updated: 06/26/2024 14:50:22 EDT by Rachel Bolanos) Tobacco: Denies Tobacco Use Never (less than 100 in lifetime) Tobacco Use:. Never Smokeless Tobacco Use:. Comments: 06/26/2024 14:50 - Rachel Bolanos: denies use. (Last Updated: 06/26/2024 14:50:36 ED (more content not included)...[facility] Comment on above:Result Comment: Electronically Signed By: Rimma Kelly MD\.br\Date and Time Signed: 07/02/24 15:04 EDT\.br\Electronically Co-Signed By: Rachel Bolanos\.br\Date and Time Co-Signed: 06/26/24 16:50 EDTAmbulatory Visit Summaryon [id number] Visit SummaryAmbulatory Visit Summary DAKSHA CORLEY :1950 Visit Date:06/26/2024 [...] mg Cap) glipiZIDE (glipiZIDE 5 mg Tab) hydrochlorothiazide-lisinopril (hydrochlorothiazide-lisinopril 12.5 mg-20 mg Tab) meloxicam (meloxicam 15 [...] Appointments Tuesday 9:20 AM EST With: Where: [address] [address]- Tuesday 1:15 PM EST With: Rimma Kelly MD Where: [address] [address]- 2024 2:30 PM EDT With: Where: [address] [address]- Medications What How Much When Why Instructions Unchanged ascorbic acid (ascorbic acid 1000 mg oral tablet) 1 Tablets By Mouth Every day Contact prescribing physician if questions or concerns Unchanged bacillus coagulans (Probiotic Digestive Aid Gummies) See instructions take 2 orally dailyContact prescribing physician if questions or concerns Unchanged [...] prescribing physician if questions or concerns Unchanged hydrochlorothiazide-lisinopril (hydrochlorothiazide-lisinopril 12.5 mg-20 mg Tab) 1 Tablets By [...] concerns Unchanged oxybutynin (oxybu (more content not included)...[facility] SummaryAmbulatory Visit Summary DAKSHA CORLEY :1950 Visit Date:06/26/2024 [...] mg Cap) glipiZIDE (glipiZIDE 5 mg Tab) hydrochlorothiazide-lisinopril (hydrochlorothiazide-lisinopril 12.5 mg-20 mg Tab) meloxicam (meloxicam 15 [...] Follow-Up Appointments Tuesday 1:15 PM EST With: Rimma Kelly MD Where: [facility] Medicine [address] [address]- Medications What How Much When Why Instructions [...] By Mouth 2 times a day Unchanged hydrochlorothiazide-lisinopril (hydrochlorothiazide-lisinopril 12.5 mg-20 mg Tab) 1 Tablets By [...] (Foggy mind) Biaxin CeleBREX Nubain (Foggy mind) Sulfabenzamide/Sulfacetamide/Sulfathiazole (Unknown) Vioxx nalbuphine (Unknown) Problems Ongoing - [...] female Peripheral neuropathy Pos (more content not included)...[facility] Medicine Office/Clinic Noteon [id number] Medicine Office/Cl[facility] NoteFaamesbury [facility] center Medicine Office/Clinic Note Chief Complaint Management of [...] medicare to cover it. Fax to # [phone] ([facility]) Needs refills of her her [...] level of consciousness appropriate for age, CN II- XII intact, motor strength equal & normal bilaterally, [...] in semaglutide dosing suggested. Ordered: A1c POC [address] [facility] Internal Ambulatory Referral 2. HTN (hypertension) (I10: Essential (primary) hypertension) Management of essential hypertension was not a primary focus of today's discussion, but continued adherence to current treatment regimens is presumed. Ordered: A1c POC 81936 [facility] Internal Ambulatory Referral 3. Morbid (severe) obesity [...] enhance weight loss efficacy. Ordered: A1c POC 35129 [facility] Internal Ambulatory Referral 4. ELY (obstructive s (more content not included)...[facility] HospitalComment on above:Result Comment: Electronically Signed By: Rimma Kelly MD\.br\Date and Time Signed: 06/26/24 14:49 EDTAmbulatory Visit Summaryon [id number] Visit SummaryAmbulatory Visit Summary DAKSHA CORLEY :1950 Visit Date:03/27/2024 [...] oral tablet) glipiZIDE (glipiZIDE 5 mg Tab) hydrochlorothiazide-lisinopril (hydrochlorothiazide-lisinopril 12.5 mg-20 mg Tab) meloxicam (meloxicam 15 [...] Follow-Up Appointments Tuesday 1:00 PM EDT Where: [facility] Medicine Office/Clinic Noteon [id number] Office[facility] Note HPI Staff Daksha is [...] - No other issues Ordered: A1c POC 11060 Body Mass Index (BMI) documented 3008F Current [...] - Continue as before Ordered: A1c POC 09698 Body Mass Index (BMI) documented 3008F Current [...] - BMI education added Ordered: A1c POC 56188 Body Mass Index (BMI) documented 3008F Current [...] Diet and exercise advised Ordered: A1c POC 06196 Body Mass Index (BMI) documented 3008F Current [...] continue to not smoke Ordered: A1c POC 29936 Body Mass Index (BMI) documented 3008F Current [...] am and one after lunch, # 360 cap(s),Refills(s) 0, Pharmacy: [facility], 165, cm, 03/27/24 10:13:00 EDT, Height/Length Dosing, 107.9, kg, 03/27/24 10:13:00 EDT, Weight Dosing semaglutide, 0.25 mg, SubCutaneous, qWeek, # 3 mL, Refills(s) 0, Pharmacy: [facility], 165, cm, 03/27/24 10:13:00 EDT, Height/Length Dosing, 107.9, kg, 03/27/24 10:13:00 EDT, Weight Dosing Follow-up No qualifying data available Patient Education BMI for Adults Problem List/Past Medical History Ongoing Advanced care planning/counseling discussion Anticoagulated Aortic atherosclerosis Back pain BMI 39.0-39.9,adult Chronic diarrhea Diverticular disease Family hx of aortic aneurysm Feeling of incomplete bladder emptying Frequency of (more content not included)...[facility] Comment on above:Result Comment: Electronically Signed By: Audie BIGGS, Rimma Moyer.br\Date and Time Signed: 03/27/24 10:59 EDTFamily Medicine Office/Clinic Noteon [id number] Medicine Office/Clinic NoteHPI Staff Daksha is a 72 year old female presenting for 3 month follow up dm, htn will need to document face to face for cpap machine replacement Rx written for c-pap machine w/ humidifier and rx must state motor life exceeded repair or replacement. Pressure setting 11 Fax to [facility] [phone] Do you have any of the following [...] EA, Oral, BID, 210 gram, Refill(s) 0, [facility], 165, cm, 01/03/24 10:13:00 EDT, Height/Length Dosing, 108.1, kg, 01/03/24 10:13:00 EDT, Weight Dosing 2. Type 2 diabetes mellitus with morbid obesity (E11.69: Type 2 diabetes mellitus with other specified complication) - Will recheck A1c today. Ordered: cholestyramine, 5 gram, 1 EA, Oral, BID, 210 gram, Refill(s) 0, [facility], cm, 01/03/24 10:13:00 EDT, Height/Length Dosing, 108.1, kg, 01/03/24 10:13:00 EDT, Weight Dosing 3. BMI 39.0-39.9,adult (Z68.39: Body mass index [BMI] 39.0-39.9, adult) - BMI education uploaded Ordered: cholestyramine, 5 gram, 1 EA, Oral, BID, 210 gram, Refill(s) 0, [facility], 165, cm, 01/03/24 10:13:00 EDT, Height/Length Dosing, 108.1, kg, 01/03/24 10:13:00 EDT, Weight Dosing 4. Class 1 obesity due to excess calories in adult (E66.09: Other obesity due to excess calories) - Diet and exercise advised Ordered: cholestyramine, 5 gram, 1 EA, Oral, BID, 210 gram, Refill(s) 0, [facility], 165, cm, 01/03/24 10:13:00 EDT, Height/Length Dosing, 108.1, kg, 01/03/24 10:13:00 EDT, Weight Dosing 5. Nonsmoker (Z78.9: Other specified health status) - Please continue to not smoke Ordered: cholestyramine, 5 gram, 1 EA, Oral, BID, 210 gram, Refill(s) 0, [facility], 165, cm, 01/03/24 10:13:00 EDT, Height/Length Dosing, 108.1, kg, 01/03/24 10:13:00 EDT, Weight Dosing 6. ELY (obstructive sleep apnea) (G47.33: Obstructive sleep apnea (adult) (pediatric)) - Will redo the CPAP Ordered: cholestyramine, 5 gram, 1 EA, Oral, BID, 210 gram, Refill(s) 0, [facility], 165, cm, 01/03/24 10:13:00 EDT, Height/Length Dosing, 108.1, kg, 01/03/24 10:13:00 EDT, Weight Dosing 7. Chronic diarrhea (K52.9: Noninfective gastroenteritis and colitis, unspecified) - Will try Cholestyramine given hx of gallbladder. - Maybe 2/2 partial colectomy. Ordered: cholestyramine, 5 gram, 1 EA, Oral, BID, 210 gram, Refill(s) 0, [facility], 165, cm, 01/03/24 10:13:00 EDT, Height/Length Dosing, 108.1, kg, 01/03/24 10:13:00 EDT, Weight Dosing 8. Family hx of aortic aneurysm (Z82.49: Family history of ischemic heart disease and other diseases of the circulatory system) U/S ordered. Ordered: US Aorta Orders: gabapentin, 300 mg = 1 cap(s), Oral, BID, # 180 cap(s), Refills(s) 0, Pharmacy: [facility], 165, cm, 01/03/24 10:13:00 EDT, Height/Length [...] urine stream Historical Abdomi (more content not included)...[facility] HospitalComment on above:Result Comment: Electronically Signed By: Audie BIGGS, Rimma Alfredo\.br\Date and Time Signed: 03/02/24 10:56 EDTRAD - Ultrasound Reporton [id number] - Ultrasound [id number] HospitalAmbulatory Visit Summaryon [id number] Visit Summary DAKSHA CORLEY :1950 Visit Date:01/03/2024 [...] mg Tab) glipiZIDE (glipiZIDE 5 mg Tab) hydrochlorothiazide-lisinopril (hydrochlorothiazide-lisinopril 12.5 mg-20 mg Tab) meloxicam (meloxicam 15 [...] Follow-Up Appointments Tuesday 10:00 AM EDT With: Rimma Kelly MD Where: [facility] [address] [place] [address]- \.br\ You Need to Complete the Following\.br\ US Aorta, 01/03/24, Routine, Order for future visit, Transport Mode: Ambulatory, Reason: Other (please specify), No, Family hx of aortic aneurysm, Family Hx. 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 Contact prescribing [...] Contact prescribing physician if questions or concerns \ .br\ Unchanged Non-Formulary Medication (equate sleep aid) 1 tab By Mouth Every day as needed for Insomnia Contact prescribing physician if questions or concerns \.br\ Unchanged oxybutynin (oxybutynin 5 mg ER Tab) 1 Tablets By Mouth Every day Duration: 90 Days Contact prescribing physician if questions or concerns \.br\ Unchanged pantoprazole (Pantoprazole [address] Tab) 1 Tablets By Mouth 2 timesa day Contact prescribing physician if questions or concerns \.br\ Unchanged psyllium (Metamucil) See instructions Take 3 gummies orally daily Contact prescribing physician if questions or concerns \.br\ Pharmacy Information\.br\ [facility]: [address] [place], [place] [id number] [phone]\.br\ Allergies\.br\ Dilaudid (Foggy mind)\.br\ Biaxin\.br\ CeleBREX\.br\ Nubain (Foggy mind)\.br\ Sulfabenzamide/Sulfacetamide/Sulfathiazole (Unknown)\.br\ Vioxx\.br\ nalbuphine (Unknown)\.br\ Problems\.br\ Ongoing - Any problem that you are currently receiving treatment for.\.br\ Advanced care planning/counseling discussion\.br\ Anticoagulated\.br\ Aortic atherosclerosis\.br\ Back pain\.br\ BMI 39.0- 39.9,adult\.br\ Chronic diarrhea\.br\ Diverticular disease\.br\ Family hx of aor tic aneurysm\.br\ Feeling of incomplete bladder emptying\.br\ Frequency of urination\.br\ Gout\.br\HTN (hypertension)\.br\ Kidney stone\.br\ Morbid obesity due to excess calories\.br\ VOGEL (nonalcoholic steatohepatitis)\.br\ ELY (obstructive sleep apnea)\.br\ Other urethral stricture, female\.br\ Peripheral neuropathy\.br\ Post-void dribbling\.br\ Type 2 diabetes mellitus with morbid obesity\.br\ Urge incontinence\.br\ Urgency of urination\.br\ Weak urine stream\.br\ Historical - Any problem that you are no longer receiving treatment for.\.br\ Abdominal tenderness\.br\ Flank pain\.br\ Gross hematuria\.br\ HTN - Hypertension\.br\ Incomplete bladder emptying\.br\ Patient Survey\.br\ You may r eceive a survey via text or e-mail asking about your office visit. Please share your experience with us by completing your survey. We appreciate your feedback and thank you for choosing us for your care.\.br\ \.br\[facility] - Clinical Noteon [id number] - Clinical Note [id number] Health Upper Valley Medical CenterConsultation Noteon [id number] Note [id number] Health Upper Valley Medical CenterXR FOOT LT MIN 3 VIEWSon [id number] FOOT LT MIN 3 VIEWSXR FOOT LT MIN 3 VIEWS: HISTORY: Pain [...] Electronically authenticated by: TARAS WILEY Date: 2022-11-21 01:25[facility] by IFAon [id number] Antibodies, IFANegative NormalThe [facility] OhioComment on above:Result Comment: Negative <1:80 Borderline 1:80 Positive >1:80 ICAP nomenclature: AC-0 For more information about Hep-2 cell patterns use ANApatterns.org, the official website for the International Consensus on Antinuclear Antibody (MARQUEZ) Patterns (ICAP).Performed By: #### ANAIFA ####[facility] [place] [address] [address]DrPastora CortesANTISTREPTOLYSIN O AB (ASO)on [id number] O Ab104.5 IU/mLNormal0.0-200.0The [facility] OhioComment on above:Performed By: #### ASOAB #### [facility] [address] [place] [address] Dr. Marcella CortesRHEUMATOID FACTORon [id number] Latex Turbid.<10.0Normal<14.0The [facility] OhioComformerly [facility] on above:Performed By: #### RF #### [facility] [address] [place] [address] Dr. Marcella CortesCBC AUTO DIFFon [id number] #0.0 103/ulNormal0.0-0.1The [facility] OhioComment on above:Performed By: #### CBC ####[facility] W[address] [place], [place] [address]Dr.Marcella CortesBasophils/100 WBC (Bld)0.5 %Normal0.2-2.0The [facility] OhioComment on above:Performed By: #### CBC ####[facility] [address] [place], [place] [address]DrDave ChangEO #0.1 103/ulNormal0.0-0.7The [facility] OhioComformerly [facility] on above:Performed By: #### CBC ####[facility] U[address] [place], [place] [address]DrDave ChangEosinophils/100 WBC (Bld)1.4 %Normal 0.9-7.0The [facility]da North Hospitalment on above:Performed By: #### CBC ####[facility] H[address] [place], [place] [address]DrDave Cortes Erythrocyte distribution width (RBC) [Ratio]12.6 %Fvhphw36.0-15.0The [facility] OhioComment on above:Performed By: #### CBC ####[facility] [address] [address]Dr.Marcella CortesHematocrit (Bld) [Volume fraction]37.1 %Fgdwww53.0-48.0The [facility] OhioComment on above:Performed By: #### CBC ####[facility] [address] [place], [place] [address]Dr.Marcella SebastianHemoglobin (Bld) [Mass/Vol]12.4 g/dL Lubgaq10.0-16.0The [facility] OhioComment on above:Performed By: #### CBC ####[facility] [address] [place], [place] [address]Dr. Marcella ChangIG #0.03 10e3/ulNormal0.00-0.03The [facility] OhioComment on above: Performed By: #### CBC ####[facility] Z[address] [place], [place] [address]Dr.Marcella ChangIG %0.5 %Normal0.0-0.5The [facility] HospitalComment on above:Performed By: #### CBC ####[facility] K[address]scr[address] [place], [place] [address]Dr.Marcella SebastianLYMPH #2.4 103/ulNormal1.2-3.8The [facility] OhioComment on above:Performed By: #### CBC ####[facility] [address] [place], [place] [address]Dr. Britneyjeffrey CortesLymphocytes/100 WBC (Bld)36.2 %Ayqwdk93.5-60.0The [facility] Comment on above:Performed By: #### CBC ####[facility] [address] [place], [place] [address]Dr.Marcella SebastianMANUAL DIFF REQNONormalThe [facility] OhioComment on above:Performed By: #### CBC ####[facility] L[address] [place], [place] [address]Dr.Marcella CortesCLIFTON SPRINGS [facility] (RBC) [Entitic mass]30.3 itNfajdl20.7-34.0The [facility] HospitalComment on above: Performed By: #### CBC ####[facility] [address] [address]Dr.Marcella CortesMCHC (RBC) [Mass/Vol]33.4 g/dLNormal 29.9-35.2The [facility] HospitalComment on above:Performed By: #### CBC ####[facility] [address] [place], [place] [address]Dr. Marcella CortesMCV (RBC) [Entitic vol]90.7 aJUsmgge49.0-99.0The [facility] Comment on above:Performed By: #### CBC ####[facility] [address] [place], [place] [address]Dr.Britneyjeffrey CortesMONO #0.4 103/ulNormal0.3-0.8 The [facility] OhioComment on above:Performed By: #### CBC ####[facility] H[address] [place], [place] [address]Dr.Marcella Cortes Monocytes/100 WBC (Bld)5.9 %Normal1.7-12.0The [facility] OhioComment on above: Performed By: #### CBC ####[facility] [address] [place], [place] [address]Dr.Marcella CortesNEUT #3.7 103/ulNormal1.4-6.5The [facility] OhioComment on above:Performed By: #### CBC ####[facility] [address] [place], [place] [address]Dr.Marcella CortesNeutrophils/100 WBC (Bld)55.5 %Vzfgyy52.0-75.0The [facility] OhioComment on above:Performed By: #### CBC ####[facility] [address] [place], [place] [address]Dr.Britneyjeffrey CortesPlatelet mean volume (Bld) [Entitic vol]8.7 fLCritically low 9.5-13.5The [facility] HospitalComment on above:Performed By: #### CBC ####[facility] [address] [id number]. Marcella LopafBRG625 103/gnUmaabm112-870Dcx [facility] OhioComformerly [facility] on above: Performed By: #### CBC ####[facility] [address] [address]Dr.Marcella ChangRBC4.09 106/ulCritically low4.20-5.40The [facility] OhioComment on above:Performed By: #### CBC ####[facility] [address] [address]Dr.Marcella CortesWBC6.7 103/ul Normal4.0-11.0The [facility] OhioComformerly [facility] on above:Performed By: #### CBC ####[facility] [address] [address]Dr. Marcella CortesCRPon 28-66-7241AYY9.7 mg/dLNormal<=1.0The [facility] OhioComformerly [facility] on above:Performed By: #### CRP, URIC, LIPID, CMP #### [facility] [address] [address] [address] Marcella CortesGLYCOHEMOGLOBIN A1Con [id number] RECOMMENDATIONSEE BELOWNormal The [facility] OhioComformerly [facility] on above:Result Comment: ADA RECOMMENDED LIMIT 4.0 - 6.0 ADA THERAPEUTIC TARGET < 7.0 ACTION SUGGESTED > 7.0Performed By: #### A1C ####[facility] [address] [address]Dr. Marcella CortesGlucose [Mass/Vol]186 mg/dLNormalThe [facility] on above:Performed By: #### A1C ####[facility] [address] [address]DrDave CortesHbA1c (Bld) [Mass fraction]8.1 % Critically high4.5-6.2The [facility] on above:Performed By: #### A1C ####[facility] [address] [address]Dr. Marcella CortesLIPID PROFILEon [id number]-HDL RATIO NORMSOhioHealthComformerly [facility] on above:Result Comment: 3.3 - 4.4 LOW RISK 4.4 - 7.1 AVERAGE RISK 7.1 - 11.0 MODERATE RISK >11.0 HIGH RISKPerformed By: #### CRP, URIC, LIPID, CMP #### [facility] [address] [place] [address] Dr. Marcella CortesCholesterol [Mass/Vol]187 mg/dLNormal<=200The [facility] Comment on above:Performed By: #### CRP, URIC, LIPID, CMP #### [facility] [address] [place] [address] Dr. Marcella CortesCholesterol in HDL [Mass/Vol]44 mg/nYRpbeov21-44CsqMount St. Mary HospitalComformerly [facility] on above:Performed By: #### CRP, URIC, LIPID, CMP #### [facility] [address] [place] [address] Dr. Marcella CortesCholesterol in LDL [Mass/Vol]97.0 mg/dLSouthern [place] Medical CenterComment on above:Performed By: #### CRP, URIC, LIPID, CMP #### [facility] [address] [place] [address] Dr. Marcella Perez.total/Cholesterol in HDL [Mass ratio]4.3 {ratio} NormalMount St. Mary HospitalComformerly [facility] on above:Performed By: #### CRP, URIC, LIPID, CMP #### [facility] [address] [place] [address] Dr. Marcella Chaudhry NORMAL> or = 60 mg/dl - LOW CARDIOVASCULAR RISK <40 mg/dl - HIGH CARDIOVASCULAR RISKSouthern [place] Medical CenterComment on above:Performed By: #### CRP, URIC, LIPID, CMP #### [facility] [place] [facility] [address] [place] [address] Dr. Marcella Villegas CALC NORMALSEE [facility] HospitalComformerly [facility] on above:Result Comment: <100 mg/dl OPTIMAL 100 - 129 mg/dl NEAR OR ABOVE OPTIMAL 130 - 159 mg/dl BORDERLINE HIGH 160 - 189 mg/dl HIGH >190 mg/dl VERY HIGH Performed By: #### CRP, URIC, LIPID, CMP #### [facility] [place] [facility] [address] [address] [address] Marcella CortesTriglyceride [Mass/Vol]230 mg/dLCritically high<=150The [facility] Hospitalment on above:Performed By: #### CRP, URIC, LIPID, CMP #### [facility] [place] [facility] [address] [address] [address] Marcella CortesVLDL CALC46.0 mg/dLNormalThe [facility] OhioComment on above: Performed By: #### CRP, URIC, LIPID, CMP #### [facility] [place] [facility] [address] [address] [address] Marcella Serrano 14(COMP METB)on 86-05-5612Avjdvvm [Mass/Vol]3.8 g/dLNormal 3.4-5.0The [facility] Hospitalment on above:Performed By: #### CRP, URIC, LIPID, CMP #### [facility] [place] [facility] [address] [address] [address] Marcella CortesAlbumin/Globulin [Mass ratio]0.9 {ratio}NormalThe [facility] North Hospitalment on above:Performed By: #### CRP, URIC, LIPID, CMP #### [facility] [place] [facility] [address] [place] [address] Dr. Marcella Guadarrama [Catalytic activity/Vol]46 U/HYrfcfw79-169Rcn [facility] Hospitalment on above:Performed By: #### CRP, URIC, LIPID, CMP #### [facility] [place] [facility] [address] [address] [address] Marcella Ahn [Catalytic activity/Vol]29 U/OSpxalj45-88Dhk [facility] Hospitalment on above:Performed By: #### CRP, URIC, LIPID, CMP #### [facility] [place] [facility] [address] [address] [address] Marcella Wade gap [Moles/Vol]16.2 mmol/LNormalThe [facility] [place] Comment on above:Performed By: #### CRP, URIC, LIPID, CMP #### [facility] [place] [facility] [address] [place] [address] Dr. Marcella CortesAST [Catalytic activity/Vol]20 U/IKkeunz64-48Ciq [facility] OhioComment on above:Performed By: #### CRP, URIC, LIPID, CMP #### [facility] [place] [facility] [address] [address] [address] Marcella CortesBilirubin [Mass/Vol]0.4 mg/dLNormal0.2-1.0[facility] Comment on above:Performed By: #### CRP, URIC, LIPID, CMP #### [facility] [place] [facility] [address] [address] [address] Marcella CortesCalcium [Mass/Vol]9.2 mg/dLNormal8.5-10.1The [facility] [place] Comment on above:Performed By: #### CRP, URIC, LIPID, CMP #### [facility] [place] [facility] [address] [address] [address] Marcella CortesChloride [Moles/Vol]98 mmol/CCdfbiv11-355OmaMount St. [facility] Comment on above:Performed By: #### CRP, URIC, LIPID, CMP #### [facility] [place] [facility] [address] [address] [address] Marcella CortesCO2 [Moles/Vol]26.1 mmol/TZmsran44.0-32.0[facility] Comment on above:Performed By: #### CRP, URIC, LIPID, CMP #### [facility] [place] [facility] [address] [address] [address] Marcella CortesCreatinine [Mass/Vol]0.84 mg/dLNormal0.55-1.02The [facility] OhioComment on above:Performed By: #### CRP, URIC, LIPID, CMP #### [facility] [place] [facility] [address] [address] [address] Marcella PabonGFR-AF BRUNEIAN>60Normal>=60The [facility] OhioComment on above:Performed By: #### CRP, URIC, LIPID, CMP #### [facility] [place] [facility] [address] [address] [address] Marcella PabonGFR-NON AF BRUNEIAN>60Normal>=60The [facility] OhioComment on above:Performed By: #### CRP, URIC, LIPID, CMP #### [facility] [place] [facility] [address] [address] [address] Marcella CortesGlobulin (S) [Mass/Vol]4.0 g/dLNormWilson Memorial HospitalComment on above:Performed By: #### CRP, URIC, LIPID, CMP #### [facility] [place] [facility] [address] [address] [address] Marcella CortesGlucose [Mass/Vol]163 mg/dLCritically ffso19-959Tva [facility] OhioComment on above:Performed By: #### CRP, URIC, LIPID, CMP #### [facility] [place] [facility] [address] [place] [address] Dr. Marcella CortesPotassium [Moles/Vol]4.3 mmol/LNormal3.5-5.1The [facility] [place] Comment on above:Performed By: #### CRP, URIC, LIPID, CMP #### [facility] [place] [facility] [address] [place] [address] Dr. Marcella CortesProtein [Mass/Vol]7.8 g/dLNormal6.4-8.2The [facility] [place] Comment on above:Performed By: #### CRP, URIC, LIPID, CMP #### [facility] [place] [facility] [address] [place] [address] Dr. Marcella CortesSodium [Moles/Vol]136 mmol/FBmzygr291-721Opu [facility] [place] Comment on above:Performed By: #### CRP, URIC, LIPID, CMP #### [facility] [place] [facility] [address] [place] [address] Dr. Marcella CortesUrea nitrogen [Mass/Vol]15.0 mg/dLNormal7.0-18.0The [facility] OhioComment on above:Performed By: #### CRP, URIC, LIPID, CMP #### [facility] [place] [facility] [address] [place] [address] Dr. Marcella CortesUrea nitrogen/Creatinine [Mass ratio]17.9 mg/mgNoOhioHealth Arthur G.H. Bing, MD, Cancer CenterComment on above:Performed By: #### CRP, URIC, LIPID, CMP #### [facility] [place] [facility] [address] [place], [place] [address] Dr. Marcella CortesURIC ACID SERUMon 39-11-9856Tecdv [Mass/Vol]7.4 mg/dLCritically high2.6-6.0The [facility] OhioComment on above:Performed By: #### CRP, URIC, LIPID, CMP #### [facility] [place] [facility] [address] [place], [place] [address] Dr. Marcella CortesCT CARDIAC SCORINGon 21-10-3153JE CARDIAC SCORINGAddendum Begins Patient Name: DAKSHA CORLEY ADDENDUM: Technical: [...] unspecified complications . COMPARISON: None. ACCESSION NUMBER(S): [id number] ORDERING CLINICIAN: TERRI ROJO TECHNIQUE: Using prospective [...] increased >800 Sanna et al. JCCT 2016 (http://dx.doi.org/10.1016/j.jcct.2016.11.003) MANZO Percentile In general, greater than 75th [...] Calcification can be calcuate using link below https://www.manzo-nhlbi.org/MESACHDRisk/MesaRiskScore/RiskScore.aspx Logan agarwal al. JACC 2015 (http://dx.doi.org/10.1016/j.j acc.2015.08.035) Reading Database Specialist: Dr. Jewel Vincent, Date: 03/18/2022 10:08 am Electronically signed by: MACO LUNA MDNew Lifecare Hospitals of PGH - Alle-KiskiUS BREAST LEFT LIMITEDon 46-60-9170RR BREAST LEFT LIMITEDPatient: DAKSHA CORLEY Exam Date: 01/13/2022 : 1950 Gender:F Ordering : DR TERRI ROJO . Admission #: [id number] Family : Order #: [id number] CLICK HERE TO VIEW EXAM RADIOLOGY REPORT [...] by: Placido Forde M.D. on 01/13/2022 at 10:54[facility] [place] [facility] CenterMG MAMM SCREEN 3D CAMERON CADon 21-51-2684IN MAMM SCREEN 3D CAMERON CADPatient: DAKSHA CORLEY Exam Date: 01/08/2022 : 1950 Gender:F Ordering : DR TERRI ROJO . Admission #: [id number] Family : Order #: [id number] CLICK HERE TO VIEW EXAM RADIOLOGY REPORT [...] Treatments None Family Cancers None LOCATION: [facility] [place] BREAST COMPOSITION: Heterogeneously dense,which may obscure small [...] by: Placido Forde M.D. on 01/08/2022 at 15:21[facility] [place] [facility] CenterXR DEXA BONE DENSITYon 84-58-5343CI DEXA BONE DENSITYEXAMINATION: XR DEXA BONE DENSITY, 01/08/2022 9:59 AM [...] Electronically authenticated by: PLACIDO FORDE Date: 2022-01-08 11:07[facility] [place] [facility] Vital Signs Date TimeVital SignValuePerforming HsdwkgmudIemfopnx31-90-8062 10:25-0400Body exorvz548.6 cmSulma Weston MD Work Phone: [phone]05-27-2025 10:25-0400Body mass index (BMI) [Ratio]33.41 kg/e7SzomllSulma Weston MD Work Phone: [phone] HospitalVcftgokafa69-62-8088 10:25-0400Body mgwbna69.89 kgSulma Weston MD Work Phone: [phone]05-27-2025 10:25-0400Diastolic blood zmoafktd24 mm[Hg]Sulma Weston MD Work Phone: [phone]05-27-2025 10:25-0400Heart rate88 /min Sulma Weston MD Work Phone: [phone]05-27-2025 10:25-0400Systolic blood swmlptpy09 mm[Hg]Sulma Weston MD Work Phone: [phone] HospitalLwhwothlze74-08-5858 09:21-0400Body kwnqog577.6 cmSulma Weston MD Work Phone: [phone]05-07-2025 09:21-0400Body mass index (BMI) [Ratio]33.41 kg/w5WwbbrkSulma Weston MD Work Phone: [phone] [address]-07-2025 09:21-0400Body ybqfkh30.89 kgSulma Weston MD Work Phone: [facility] HospitalCrgalvjxbh69-73-2971 09:21-0400Diastolic blood acizojrc38 mm[Hg]Sulma Weston MD Work Phone: [facility] HospitalRekuqrnxlx87-03-9022 09:21-0400Heart rate96 /min Sulma Weston MD Work Phone: [facility] HospitalQxgpgsksmu80-77-3840 09:21-0400Systolic blood axwlupqr022 mm[Hg]Sulma Weston MD Work Phone: [facility] HospitalZwwrjyaakq95-86-2507 10:00-0500Body vjezzx350.64 cmJustin Lillian Other [employer] Other 12-11-2023 10:00-0500Body mass index (BMI) [Ratio] 37.12 kg/n2Phqnwb Lillian Other [employer] Other 12-11-2023 10:00-0500Body .33 kgJustin Lillian Other [employer] Other 08-28-2023 11:15-0400Body qyudfw931.64 cmJustin Lillian Other [employer] Other 08-28-2023 11:15-0400Body mass index (BMI) [Ratio] 37.12 kg/e8Vjcxjr Lillian Other [employer] Other 08-28-2023 11:15-0400Body .33 kgJustin Lillain Other [employer] Other 07-05-2023 11:15-0400Body aeukco946.64 cmJustin Lillian Other [employer] Other 07-05-2023 11:15-0400Body mass index (BMI) [Ratio] 37.12 kg/s6Vjhxkr Lillian Other [employer] Other 07-05-2023 11:15-0400Body zwsqah116.33 kgJustin Lillian Other [employer] Other 05-24-2023 11:15-0400Body tvgjeb504.64 cmJustin Lillian Other [employer] Other 03-15-2023 12:00-0400Body igixnx489.64 cmJustin Lillian Other [employer] Other 03-15-2023 12:00-0400Body mass index (BMI) [Ratio] 37.12 kg/b5Soavkj Lillian Other [employer] Other 03-15-2023 12:00-0400Body ttzkix383.33 kgJustin Lillian Other [employer] Other 03-01-2023 11:30-0500Body brwpiw869.64 cmJustin Lillian Other [employer] Other 03-01-2023 11:30-0500Body mass index (BMI) [Ratio] 37.93 kg/l3Nbjyay Lillian Other [employer] Other 03-01-2023 11:30-0500Body fegveo682.6 kgJustin Lillian Other [employer] Other Encounters Encounter DateEncounter TypeCare ProviderFacilityStart: 79-13-6554uwkeqfnvqrFrje L SchwabFacility:[facility] BellevueStart: 06-27-2025 End: 67-13-8635prwfldjpybGmfrcn E. RossFacility:[facility] tart: 04-10-2025 End: 48-96-7324Uhqtge outpatient visit 25 minutesNancy Corrales MD Work Phone: [facility], A Department of [facility] AkronComment on above:Right epiretinal membrane (Primary Dx); Type 2 diabetes mellitus without complication, without long-term current use of insulin ([facility]); Nuclear sclerotic cataract of both eyesStart: 04-10-2025 End: 94-30-2095vxplkhltehSnbo Ophth ImagingProVaughan Regional Medical Center [facility], A Department of [facility] AkronComment on above:Right epiretinal membrane; Type 2 diabetes mellitus without complication, without long-term current use of insulin ([facility])Start: 03-28-2025 End: 17-48-8557Kcr Drop offJodi L Tigist [facility] Start: 03-28-2025 End: 30-68-3327yvbhbuyqbeEXM Mary L SchwabFacility:[facility] tart: 02-19-2025 End: 28-40-7674Jylsoy flowsheetSulma Weston MD Work Phone: [facility] CI ENTStart: 02-19-2025 End: 69-83-2482Yjoiam flowsMichael Weston MD Work Phone: [facility] CI ENTStart: 02-19-2025 End: 37-53-9735Enndwd outpatient visit 15 minutesSulma Weston MD Work Phone: [facility] CI ENTComment on above:Sensorineural hearing loss (SNHL), bilateral (Primary Dx)Start: 02-19-2025 End: 42-19-8964xwlksmezniPTRTML H TIMMISNot AvailableStart: 01-30-2025 End: 99-51-5458Ehyajr flowsheetSulma Weston MD Work Phone: [facility] ENTStart: 01-30-2025 End: 03-94-7671Ccymxdirene Weston MD Work Phone: [facility] ENTStart: 01-30-2025 End: 70-02-2708yljbmyfnxaZWJVUU H TIMMISNot AvailableStart: 01-30-2025 End: 85-22-4394Nzlgcz outpatient new 30 minutesSulma Weston MD Work Phone: [facility] CI ENTComment on above:Bilateral tinnitus (Primary Dx); Bilateral impacted cerumenStart: 10-25-2024 End: 12-09-9270Ervbke outpatient new 45 minutesStenedelia Corrales MD Work Phone: [facility] RetinaComment on above:Right epiretinal membrane (Primary Dx); Nuclear sclerotic cataract of both eyes; Type 2 diabetes mellitus without complication, without long-term current use of insulin ([facility])Start: 10-25-2024 End: 64-93-6556Owvocidcbbwtv ImagingPpww Ophth ImagingProMedica Physicians RetinaComment on above:Other specified retinal disordersStart: 10-02-2024 End: 99-03-4855zsmkkbiqxnOwyvmr E. RossFacility:[facility] evueStart: 09-28-2024 End: 59-09-8150Eig Drop Melanie Kelly [facility] Start: 09-28-2024 End: 01-79-0784bywdwqbgkjLtiupc E. RossFacility:[facility] evueStart: 09-20-2024 End: 02-63-7957Kyluqovxp department patient visitDAVID [facility] Hospitaltart: 06-26-2024 End: 31-75-7486ecfhobuvkxOlxhdq E. RossFacility:[facility] BellevueStart: 03-27-2024 End: 42-96-1361hyzbstxkyeKsmbqs Sayda KellyFacility:[facility] BellevueStart: 01-03-2024 End: 95-52-7472ylqfguqoevAlvcjq Sayda RossFacility:[facility] BellevueStart: 09-05-2023 End: 99-16-6664tdehmmcwgzFihvdx Lillian Other [employer] Other Start: 52-26-5547Vikevo outpatient visit 15 minutes Atif KelleyFPG [facility]icsStart: 05-23-2023 End: 63-06-7128gmqmruzhleCvjuhh Lillian Other [employer] Other Start: 49-95-7401Jgbwsq outpatient visit 15 minutes Atif KelleyFPG [facility] OrthopedicsStart: 03-30-2023 End: 55-61-4622aitjxpvabzXodwqq Lillian Other [employer] Other Start: 87-51-6746Jrakdq outpatient visit 15 minutes Atif KelleyFPG [facility] OrthopedicsStart: 02-16-2023 End: 03-23-4289wrwtcdjdrpCohbzu Lillian Other [employer] Other Start: 94-80-3021Yckilr outpatient visit 15 minutes Atif KelleyFPG [facility] OrthopedicsStart: 01-19-2023 End: 23-56-4248jfyppgpnvqKlsswsox [place] Other [employer] Other Start: 86-27-4009Wrblzw outpatient visit 15 minutes Ana Maria GlasgowFPG [facility] OrthopedicsStart: 32-09-4129ptfmjypijpIA KIM E KNIGHT .Facility:W5Kbfco: 12-22-2022 End: 33-33-5674wtccmbfxekTcflen Lillian Other [employer] Other Start: 64-17-1850Nytxuu outpatient visit 15 minutes Atifdarian Zelaya OrthopedicsStart: 56-97-9108Awklpdhtr encounterJustdarian Zelaya OrthopedicsStart: 12-08-2022 End: 17-41-4724cdgubtuzdgKuhsyy Kelley Other [employer] Other Start: 49-92-6625Wutndf follow up visit related to original pxAtif Zelaya OrthopedicsStart: 11-24-2022 End: 00-38-9527wyyyxnzfptLkqtan Kelley Other [employer] Other Start: 45-79-1433Hgjpeu outpatient new 30 minutes Atifdarian Zelaya OrthopedicsStart: 11-21-2022 End: 96-57-5675qdaniqxtilNQ TERRI ROJO .Facility:W2Gysmg: 09-07-2022 End: 26-10-6468bdvilxkfytAJ KIM E KNIGHT .Facility:Y2Deerj: 01-13-2022 End: 96-83-1266zdpisxolxmYS KIM E KNIGHT .Facility:G8Enqzz: 01-08-2022 End: 82-72-9449xyucxeqzzhDP KIM E KNIGHT .Facility:H1 Procedures DateProcedureProcedure DetailPerforming ClinicianStart: 06-77-8989Qthicitlruja ophthalmic imaging Sandy Corrales MD Work Phone: Start: 27-86-1780Lxsdkylg retinal eye examSsp Corrales MD Work Phone: Start: 10-25-2024 End: 51-89-8341Ougfzhcbpazp ophthalmic imaging Sandy Corrales MD Work Phone: Start: 79-41-2582Oabqyuzj retinal eye examSsp Corrales MD Work Phone: Start: 88-86-1771Upcuhihseb and retrograde pyelography Rimma Kelly Comment on above:rightAbdominal hysterectomySanatachael Audie AppendectomyRimma Kelly ColonoscopyRimma Kelly Comment on above:2009 normalGallbladder structure (body structure)Rimma Kelly H/O: tubal ligationSanatachael Audie Partial resection of colonRimma Kelly Repair of hipSdione Kelly Comment on above:leftTonsillectomy and adenoidectomy Rimma Kelly Total knee replacementSdione Kelyl Comment on above:rightleft Plan of Treatment DateCare ActivityDetailAuthorStart: 16-42-5110Otykfjei screeningDiabetic Ophthalmology ExamProLake [facility] SystemStart: 42-74-6214Pcuvryw Screening Tobacco ScreeningKettering Health Miamisburg SystemStart: 48-75-3764Zdglklgd screening Diabetic Ophthalmology ExamProLake County [facility] SystemStart: 10-11-2025 End: 13-07-9537Fnggnbw encounter himshhfsl14/16/2026 2:10 PM EST Office Visit Gerald Cano, A Department of [facility] [address] [place] [address] Nancy Corrales MD [address] [place] [address] Gerald [facility], A Department of [facility] Westtart: 21-46-1012Ayuxvugmc [facility] HealthcareStart: 04-10-2025 End: 27-05-2213Uqmleqs encounter /16/2025 2:30 PM EDT Office Visit Gerald [facility] [address] [place] [address] Nancy Corrales MD [address] [place] [address] [facility] Physicians RetinaStart: 02-19-2025 End: 78-72-0927Kkcwbkd encounter procedureNOMS CI ENTComment on above:Arrived Start: 94-52-2576MNGPL-19 Vaccine ( season)COVID-19 Vaccine ( season)ProMMercy Hospital of [facility] SystemStart: 71-46-7985Wxgianxju vaccination Influenza VaccineProLake County [facility] SystemStart: 68-84-4232Sgfo Risk ScreeningFall Risk ScreeningProLake County [facility] SystemStart: 67-69-0366Xpvcfcomcrsing of varicella zoster vaccineZoster (Shingles) Vaccine (1 of 2)[facility] SystemStart: 99-38-6420Rlnagsrscnwn Vaccine: 65+ Years (1 of 1 - PCV) Pneumococcal Vaccine: 65+ Years (1 of 1 - PCV)[facility] HealthcareStart: 1990 Screening for malignant neoplasm of breastMammogramNOMS HealthcareStart: 83-87-8832LOtY,Tdap and Td Vaccines (1 - Tdap)DTaP,Tdap and Td Vaccines (1 - Tdap)[facility] SystemStart: 49-19-7007Bumbq BMI ScreeningAdult BMI ScreeningProLake County [facility] SystemStart: 34-92-1493Pkiopvqx foot examination Diabetic Foot ExamProLake County [facility] SystemStart: 51-58-0126Rnaeqqaoyl Screening Depression ScreeningProLake County [facility] SystemStart: 98-12-4340Ppvzaij Screening Tobacco ScreeningProLake [facility] SystemStart: 19-25-4082Mfvqgtzdx for malignant neoplasm of colonNOMS Healthcare Immunizations Immunization DateImmunizationNotesCare CntsthgaRcepxsao62-90-4853MTZI-MqX-2 (COVID-19) mRNAMUL.ORD!j03550Awrstk Ross 140-0115Ebesxr-QtdwdRegional Medical Center 84-26-6175gohcyclot virus vaccine, unspecified formulationSdione Kelly [phone]-AfpanRegional Medical Center 41-95-4381WJRY-CoV-2 mRNA (jvssvewdnot-jxhg-ypcblee) vaccineSdione Kelly [phone]-IztvaRegional Medical Center 19-09-5543izkmsbaso virus vaccine, unspecified formulationSdione Kelly [phone]-LmhjnRegional Medical Center 52-89-1432BYDD-CoV-2 (COVID-19) mRNA BNT-162b2 vaxSdione Kelly [phone]-EyzeeRegional Medical Center 11-89-4235NSYL-CoV-2 (COVID-19) mRNA BNT-162b2 Edilma Kelly [phone]-EtiucRegional Medical Center Comment on above:Result Comment: 2023-02-01: KFZ8219-65-8166ZHLU-PmX-0 (COVID- 19) mRNA BNT-162b2 vaSvetlana Kelly [phone]-ZgtgxRegional Medical Center Comment on above:Result Comment: 2023-02-01: GRS31EMJUMAJ: Highlighted row has not occurred!10-26-3254gbsxjljgv virus vaccine, unspecified formulationSdione Kelly 583-2019Pzoajm-JvivmRegional Medical Center Payers DatePayer CategoryPayerPolicy [id number] Health Insurance [id number] Care Other (unspecified)[facility] Member Subscriber Plan / Payer (Effective 2019-Present) Name: Daksha Corley Relation to Subscriber: Self Name: Daksha Corley Payer ID: [id number] (NAIC) Group ID: [id number] G Type: Not on file Address: [facility] [id number] [place] [id number] [id number] 1960Medicare [id number] 2.16.840.4.84978[id number] 2.16.840.3.70620[id number] 2.16.840.1.005685.3.5[id number] 2.16.840.1.112691.3.57[id number] 2.16.840.1.548471.3.57[id number] 2.16.840.1.071865.3.57[id number] 2.16.840.1.625803.3.57[id number] 2.16.840.1.996995.3.57[id number] 2.16.840.1.410147.3.579.2.[id number] 2.16.840.1.294962.3.57[id number] 2.16.840.1.821263.3.57[id number] 2.16.840.1.175729.3.579.[id number] 2.16.840.1.246020.3.57[id number] 2.16.840.1.301697.3.57[id number] 2.16.840.1.048737.3.57[id number] 2.16.840.1.894499.3.579.[id number] 2.16.840.1.851865.3.579.[id number] 2.16.840.1.851521.3.57[id number] 2.16.840.1.165610.3.57[id number] 2.16.840.1.959173.3.579.2.2[id number] 2.16.840.1.638552.3.579.[id number] 2.16.840.1.872896.3.57[id number] 2.16840.1.230917.3.57[id number] 2.16.840.1.414216.3.57[id number] 2.16.840.1.448830.3.57[id number] 2.16.840.1.320685.3.57[id number] 2.16.840.1.617100.3.579.2.727 Social History DateTypeDetailFacilityUnknown if ever smokedNort [employer] Other Start: 11-06-2020 End: 77-18-6787Pin Assigned At [place]Healthtart: 07-16-2020 End: 76-17-3694Zddcunv smoking statusNever smoked tobacco (finding)[facility] CenterComment on above:denies use.Tobacco smoking statusNeverRegional Medical CenterComment on above:denies use.Start: 07-16-2020 End: 30-98-8473Jvbjlxo use and exposureSmokeless tobacco non-userKettering Health Miamisburg SystemStart: 10-26-2024 End: 05-16-5165Hegndgmsb beverage intakeEx-drinker (finding)[facility] HealthCovalent Software SystemStart: 11-06-2020 End: 20-25-6931Lpuayji of Social functionKettering Health Miamisburg SystemStart: 36-34-3559Aua assigned at [facility] universityNot on fileKettering Health Miamisburg SystemStart: 05-01-2015 End: 20-67-8116WbbAvntpu (finding)[facility] HospitalTosaint [facility] smoking status NHISTobacco smoking consumption unknownNOMS HealthcareSexual OrientationBlanchard Valley Health [facility] Medical Equipment Procedure CodeEquipment CodeEquipment Original TextEquipment IdentifierDatesMisc DME Prescription, See Instructions, 100 strip(s), 3, True metrix test strips Test once a day Dx E 11.9, [employer] #72, Supply, 167.6, cm, 02/02/23 13:51:00 EDT, Height/Length Dosing, 111.4, kg, 02/02/23 13:51:00 EDT, Weight DosingStart: 35-85-7514Kgcp DME Prescription, See Instructions, 100 lancet(s), 3, Ultra thin unilet lancets use to test blood sugars once a day Dx E11.9, [employer] #72, Supply, 167.6, cm, 02/02/23 13:51:00 EDT, Height/Length Dosing, 111.4, kg, 02/02/23 13:51:00 EDT, Weight DosingStart: 05-04-0082AWRP STRIPS AND LANCETS, 1, SubCutaneous, Daily, 100 EA, 3, [employer] #72, Supply, 167.6, cm, 02/02/23 13:51:00 EDT, Height/Length Dosing, 111.4, kg, 02/02/23 13:51:00 EDT, Weight DosingStart: [id number] DME Prescription, See Instructions, 100 strip(s), 3, True metrix test strips Test once a day Dx E 11.9, [employer] #72, Supply, 167.6, cm, 02/02/23 13:51:00 EDT, Height/Length Dosing, 111.4, kg, 02/02/23 13:51:00 EDT, Weight DosingStart: [id number] DME Prescription, See Instructions, 100 lancet(s), 3, Ultra thin unilet lancets use to test blood sugars once a day Dx E11.9, [employer] #72, Supply, 167.6, cm, 02/02/23 13:51:00 EDT, Height/Length Dosing, 111.4, kg, 02/02/23 13:51:00 EDT, Weight DosingStart: [id number] STRIPS AND LANCETS, 1, SubCutaneous, Daily, 100 EA, 3, [employer] #72, Supply, 167.6, cm, 02/02/23 13:51:00 EDT, Height/Length Dosing, 111.4, kg, 02/02/23 13:51:00 EDT, Weight DosingStart: 02-15-2023 Clinical Notes 02-24-2019 to 04-13-2025 Note Date & [id number] NoteRight Eye Quality was good. Progression has been stable. Findings include abnormal foveal contour, epiretinal membrane, foveal thickening. Follow up actions include continue present management. Left Eye Quality was good. Progression has been stable. Findings include normal foveal contour. Follow up actions include continue present management.MANUALLY TRANSCRIBED [id number] NoteRight Eye Quality was good. Progression has been stable. Findings include abnormal foveal contour, epiretinal membrane, foveal thickening. Follow up actions include continue present management. Left Eye Quality was good. Progression has been stable. Findings include normal foveal contour. Follow up actions include continue present management.MANUALLY TRANSCRIBED [id number] History of Present illness Narrative* Nancy Corrales MD - 04/10/2025 2:30 PM EDT Daksha Corley had concerns including Right epiretinal [...] Negative for: Constitutional, Gastrointestinal, Neurological, Skin, Genitourinary, Musculoskeletal,HENT, Cardiovascular, Respiratory, Psychiatric, Allergic/Imm, Heme/Lymph Last edited [...] past medical history of Diabetes mellitus ([facility]) and Hypertension. She has a past surgical [...] complication, without long-term current use of insulin ([facility]) 3. Nuclear sclerotic cataract of both eyes ASSESSMENT/PLAN 1. Right epiretinal membrane (Primary) RIGHT EYE-stable -Criteria for surgical intervention discussed. -Continue observation -Monitor amsler grid -Testing done today reviewed with patient. - OCT, Retina - OU - Both Eyes; Future 2. Type 2 diabetes mellitus without complication, without long-term current use of insulin ([facility]) BOTH EYES- no ocular manifestation. -Last A1c: [...] MD by ЕЛЕНА Shane documented in this encounterGood [facility]05-27-[facility]25 History of Present illness Narrative* Sulma Weston MD - 02/19/2025 10:20 AM EDT Subjective Patient ID: Daksha Corley is a [...] hearing loss (SNHL), bilateral documented in this encounterLakeland Regional [id number] History of Present illness Narrative* Sulma Weston MD - 01/30/2025 9:20 AM EDT Subjective Patient ID: Daksha Croley is a 74 y.o. female who presents [...] debrided. F/U after audio documented in this encounterLakeland Regional [id number] NoteRight Eye Quality was good. Progression has no prior data. Findings include abnormal foveal contour, epiretinal membrane, foveal thickening. Plan: observe & monitor, reviewed testing with the patient. Left Eye Quality was good. Progression has no prior data. Findings include normal foveal contour. Plan: observe & monitor, reviewed testing with the patient.MANUALLY TRANSCRIBED [id number] NoteRight Eye Quality was good. Progression has no prior data. Findings include abnormal foveal contour, epiretinal membrane, foveal thickening. Plan: observe & monitor, reviewed testing with the patient. Left Eye Quality was good. Progression has no prior data. Findings include normal foveal contour. Plan: observe & monitor, reviewed testing with the patient.MANUALLY TRANSCRIBED [id number] NoteRight Eye Progression has no prior data. Disc [...] observe and monitor, reviewed testing with the patient.MANUALLY TRANSCRIBED [id number] NoteRight Eye Progression has no prior data. Disc [...] observe and monitor, reviewed testing with the patient.MANUALLY TRANSCRIBED [id number] History of Present illness Narrative* Nancy Corrales MD - 10/25/2024 2:20 PM EST Daksha Corley had concerns including Diabetic Eye Exam. HPI Diabetic Eye Exam Vision: is stable Comments [employer]/ME Patient referred for macular evaluation. Patient states [...] past medical history of Diabetes mellitus ([facility]) and Hypertension. She has a past surgical [...] without long-term current use of insulin ([facility]) ASSESSMENT/PLAN 1. Right epiretinal membrane (Primary) RIGHT EYE -Criteria for surgical intervention discussed. Patient is asymptomatic without complaints. -Continue observation -Monitor amsler grid -Testing done today reviewed with patient. - [facility] [place], [place] - Fundus Photos - OU - Both Eyes; Future - OCT, Retina - OU - Both Eyes; Future 2. Nuclear sclerotic cataract of both eyes BOTH EYES -Nuclear sclerotic cataract noted on examination. -Continue observation. 3. Type 2 diabetes mellitus without complication, without long-term current use of insulin ([facility]) BOTH EYES- no ocular manifestation. -Last A1c: [...] both accurate and complete. documented in this encounterGood Samaritan Hospital10-01-2024 NotePatient Education Nutrition BMI for Adults Body mass [...] BMI calculators are available to help you findyour BMI quickly and easily without doing these [...] meters squared number. In this example: 70 ?3.1 = 22.6. This is your BMI. What [...] such as an athlete, may have a BMIthat is higher than 24.9. In cases like these, BMI is not a correct measure of body fat. ? If you have a BMI of 25 or higher, your provider may need to do more testing to find out if excess body fat is the cause. ? BMI is measured the same way for males and females. Females usually have more body fat than malesof the same height and weight. Where to find more information For more information about BMI, including tools to quickly find your BMI, go to: ? Centers for Disease Control and Prevention: cdc.gov ? [place] Heart Association: heart.org ? National Heart, Lung, and Blood [place]: nhlbi.nih.gov This information is not intended to replace advice given to you by your health care provider. Make sure you discuss any questions you have with your health care provider. Document Revised: 06/02/2023 Document Reviewed: 05/26/2023 [employer] Patient Education ? 2023 [employer] 03-27-2024 NotePatient Education Nutrition BMI for Adults What is BMI? Body mass index (BMI) is a number that is calculated from a person's weight and height. BMI can help estimate how much of a person's weight is composed of fat. BMI does not measure body fat directly.Rather, it is an alternative to procedures that [...] your height. Both height and weight are measured,and the BMI is calculated from those numbers. This can be done either in [place] ([place] or metric measurements. Note that charts and online BMI calculators are available to help you find your BMI quickly and easily without having to do these calculations yourself. To calculate your BMI in [place] ([place] measurements: 1. Measure your weight in [...] meters squared number. In this example: 70 ?3.1 = 22.6. This is your BMI. What [...] for Disease Control and Prevention: www.cdc.gov ? [place] Heart Association: www.heart.org ? National Heart, Lung, and Blood [place]: www.nhlbi.nih.gov Summary ? Body mass index (BMI) is a number that is calculated from a person's weight and height. ? BMI may help estimate how much of a person's weight is composed of fat. BMI can help identify those who may be at higher risk for certain medical problems. ? BMI can be measured using Panamanian measurements or metric measurements. ? BMI charts are used to identify whether you are underweight, normal weight, overweight, or obese. This information is not intended to replace advice given to you by your health care provider. Make sure you discuss any questions you have with your health care provider. Document Revised: 06/04/2020 Document Reviewed: 04/11/2020 [employer] Patient Education ? 2022 [employer] 09-05-2023 Evaluation note* Encounter Date Diagnosis Assessment Notes Treatment Notes Treatment Clinical Notes Aug, Rupture of left Achi lles tendon, subsequent encounter (ICD-10 - S86.012D) Daksha returns with left ankle Achilles tendon tear. At this juncture we have discussed the findingsand diagnosis as well as personally reviewed appropriate [...] move forward with treatment at this time. Aug,chilles tendinitis of right lower extremity (ICD-10 - M76.61) Aug,Neuropathy (ICD-10 - G62.9) Prescription for gabapentin was sent into patients pharmacy. Discussed with patient to follow up with primary care for refills if the medication is helping. [employer] Other 08-28-2023 Evaluation note* Encounter Date Diagnosis Assessment Notes Treatment Notes Treatment Clinical Notes Apr, Rupture of left Achi lles tendon, subsequent encounter (ICD-10 - S86.012D) Daksha returns with left ankle Achilles tendon tear. At this juncture we have discussed the findingsand diagnosis as well as personally reviewed appropriate imaging and performed interpretation of related testing and examination with the patient in office today. Overall physical exam is benign. Sheis continuing to improve and wants to continue physical therapy which I think is reasonable to advance strength and ADLs. I will plan to see her back in 3 months The patient has been involved in our cooperative treatment plan and agrees to move forward with treatment at this time. Today, we performed a physical examiantion of the left achilles tendon was performed today. Patientadvised to keep exerciing the ankle. We will provide a refill of the PT. We did also refill Celebrex and Flexeril as well. Patient will f/u in 3 months Apr,chilles tendinitis of right lower extremity (ICD-10 - M76.61) Apr,Neuropathy (ICD-10 - G62.9) [employer] Other 07-05-2023 Evaluation note* Encounter Date Diagnosis Assessment Notes Treatment Notes Treatment Clinical Notes Mar, Rupture of left Achi lles tendon, subsequent encounter (ICD-10 - S86.012D) Daksha returns with left ankle Achilles tendon tear. At this juncture we have discussed the findingsand diagnosis as well as personally reviewed appropriate imaging and performed interpretation of related testing and examination with the patient in office today. Overall physical exam is benign. Shecontinues to have some Achilles tendon pain but [...] exercises at home. We will discontinue Meloxicam andstart on Celebrex. She voices understanding. Mar,chilles tendinitis of right lower extremity (ICD-10 - M76.61) Mar,Neuropathy (ICD-10 - G62.9) [employer] Other 05-24-2023 Evaluation note* Encounter Date Diagnosis Assessment Notes Treatment Notes Treatment Clinical Notes January, Rupture of left Achi lles tendon, subsequent encounter (ICD-10 - S86.012D) Daksha returns with left ankle Achilles tendon tear. She is almost 8 weeks out. At this juncture we have discussed the findings and diagnosis as well as personally reviewed appropriate imaging and performed interpretation of related testing and examination with the patient in office today. Follow-upin 6 weeks Postoperative protocol -Today advance WBAT [...] physical therapy. Continue with cane as needed. January,chilles tendinitis of right lower extremity (ICD-10 - M76.61) Extensive discussion was had about the current condition and treatment options available. We discussed use of Voltaren gel to the affected area. Patient provided an order for physical therapy today. January,OtherSee orders for this visit as documented in the electronic medical record. [employer] Other 04-26-2023 Evaluation note* Encounter Date Diagnosis Assessment Notes Treatment Notes Treatment Clinical Notes Dec, Rupture of left Achi lles tendon, subsequent encounter (ICD-10 - S86.012D) Dec,OtherLinda returns with left ankle Achilles tendon tear. [...] in the office today and providing supervision. [employer] Other 03-29-2023 Evaluation note* Encounter Date Diagnosis Assessment Notes Treatment Notes Treatment Clinical Notes Nov, Rupture of left Achi lles tendon, subsequent encounter (ICD-10 - S86.012D) Nov,OtherLinpiter returns with left ankle Achilles tendon tear. [...] We discussed starting to peel one linoleum floor layer of the heel lift each week. Continue with use of boot at this time. Continue with use of walker as needed. A prescription for physical therapy was provided today. [employer] Other 03-15-2023 Evaluation note* Encounter Date Diagnosis Assessment Notes Treatment Notes Treatment Clinical Notes Nov, Rupture of left Achi lles tendon, subsequent encounter (ICD-10 - S86.012D) Nov,OtherLinpiter returns with left ankle Achilles tendon tear. [...] candidate we will plan for nonoperative treatment. Wediscussed nonoperative treatment for her injury. Today we have placed her in a tall walking boot with 2 heel lifts. She should maintain use of walker at all times with 50% weightbearing to the right lower extremity. I will plan to see her back in another 10 days or so and we will get her started intherapy with our Achilles tendon protocol Postoperative protocol [...] understanding and is agreeable to treatment plan. [employer] Other 03-01-2023 Evaluation note* Encounter Date Diagnosis Assessment Notes Treatment Notes Treatment Clinical Notes Nov, Rupture of right Ach illes tendon, initial encounter (ICD-10 - S86.011A) Daksha presents with right ankle Achilles tendon tear. At this juncture we have discussed the findings and diagnosis as well as personally reviewed appropriate imaging and performed interpretation of related testing and examination with the patient in office today. [facility] medical notes from [facility] and history have been reviewed. At her age and habitus she is a poor surgical candidate we will plan for nonoperative treatment. Wediscussed nonoperative treatment for her injury. Today we have placed her in a tall walking boot with 2 heel lifts. She should maintain use of walker at all times with 50% weightbearing to the right lower extremity. I will plan to see her back in approximately 3 weeks and we will get her started intherapy with our Achilles tendon protocol Postoperative protocol [...] Prescription for cyclobenzaprine sent into patients pharmacy Nov,OtherSee orders for this visit as documented in the electronic medical record. [facility] Other 06-01-2019 History general Narrative - Reported* Type Description Date Medical History Borderline Type 2 Diabetes Medical HistoryHypertensionMedical Historykidney Stones 02/2019Surgical History Partial Bowel Xfanrbo20 years agoSurgical HistoryTonsil & AdnoidsSurgical [id number] HistoryHysterectomy with Bladder [id number] Surgical HistoryTubal LigationSurgical HistoryBilateral Knee [id number] Surgical HistoryLTHAHospitalization HistoryPneumonia09/2017 [facility] Other Evaluation + Plan note Future Appointments Appointment Date:10/02/2024 11:30:00 AM Scheduled Provider:Rimma Kelly MD Location:[facility] Appointment Type: Open Appointment Date:06/27/2025 02:30:00 PM Scheduled Provider: Location:[facility] Appointment Type: Medicare Wellness Subsequent Future Scheduled Tests Radiology* US Aorta 01/03/24 [facility] Evaluation + Plan note Future Appointments Appointment Date:06/27/2025 02:40:00 PM Scheduled Provider:Mary Trotter Location:[facility] Appointment Type: Open [facility] Evaluation noteNo InformationNort [employer] Other evaluation note* Diagnosis Right epiretinal membrane- Primary Macular puckering of retina Nuclear sclerotic cataract of both eyes Senile nuclear sclerosis Type 2 diabetes mellitus without complication, without long-term current use of insulin ([facility]) Other specified retinal disorders Other specified retinal disorders [facility]* Diagnosis Other specified retinal disorders [facility]* Diagnosis Bilateral tinnitus- Primary Bilateral impacted cerumen Impacted cerumen [facility]* Diagnosis Sensorineural hearing loss (SNHL), bilateral- Primary documented in this encounter [facility]* Diagnosis Right epiretinal membrane- Primary Macular puckering of retina Type 2 diabetes mellitus without complication, without long-term current use of insulin ([facility]) Nuclear sclerotic cataract of both eyes Senile nuclear sclerosis Right epiretinal membrane Macular puckering of retina Type 2 diabetes mellitus without complication, without long-term current use of insulin ([facility]) [facility]* Diagnosis Right epiretinal membrane Macular puckering of retina Type 2 diabetes mellitus without complication, without long-term current use of insulin ([facility]) documented in this encounter [facility] Narrative No data available for this section [facility] Hospital Discharge instructions No data available for this section [facility] Instructions* Attachments The following attachments cannot be sent through Care Everywhere. * Cataracts (Panamanian) documented in this encounterK[facility] SystemInstructionsNot on file documented in this encounterK[facility] SystemInstructionsNot on file documented in this encounterK[facility] SystemInstructionsNot on file documented in this encounterK[facility] SystemProgress note No data available for this section [facility] Summary Purpose Family History No Family [...] section and content) DATE CREATED AUTHOR 03/20/2022 [facility] DATE CREATED AUTHOR AUTHOR'S ORGANIZ ATION 12/31/[address] [facility] DATE CREATED AUTHOR AUTHOR'S ORGANIZ ATION 10/05/2024 [facility] DATE CREATED AUTHOR AUTHOR'S ORGANIZ ATION 10/06/2024 [facility] DATE CREATED AUTHOR AUTHOR'S ORGANIZ ATION 10/16/2024 [facility] DATE CREATED AUTHOR AUTHOR'S ORGANIZ ATION 10/27/2024 [facility] DATE CREATED AUTHOR AUTHOR'S ORGANIZ ATION 02/22/2025 [facility] DATE CREATED AUTHOR AUTHOR'S ORGANIZ ATION 04/14/2025 [facility] DATE CREATED AUTHOR AUTHOR'S ORGANIZ ATION 07/01/2025 [facility] DATE CREATED AUTHOR AUTHOR'S ORGANIZ ATION 07/02/2025 [facility] REASON FOR VISIT (unrecogniz ed section and content) ReasonCommentsDiabetic Eye ExamSpecialtyDiagnoses / ProceduresReferred By ContactReferred To ContactOphthalmology Diagnoses Normal retina on examination of eye Carlos Lobato, OD [address] [place] [address] Phone: tel: fax: Nancy Corrales MD [address] [facility] [address] [place] [address] Phone: tel: fax: Referral IDStatusReasonStart DateExpiration DateVisits RequestedVisits [id number] Specialty Services Required [id number] ImpactionReasonCommentsTinnitusFollow up audio Dr Bermudez 01/31/25ReasonCommentsRight epiretinal membrane Patient Care team informatio n (unrecognized section and content) Team MemberRelationshipSpecialtyStart DateEnd Date Rimma Kelly MD [address] [place] [address] PCP - GeneralFamily Medicine10/25/24Team MemberRelationshipSpecialtyStart DateEnd Date Rimma Kelly MD [address] [place] [address] PCP - GeneralFamily Medicine10/25/24Team MemberRelationshipSpecialtyStart DateEnd Date Rimma Kelly MD [address] [place] [address] PCP - GeneralFamily Medicine01/22/25Team MemberRelationshipSpecialtyStart DateEnd Date Rimma Kelly MD [address] [place] [address] PCP - GeneralFamily Medicine01/22/25Team MemberRelationshipSpecialtyStart DateEnd Date Rimma Kelly MD [address] [place] [address] PCP - GeneralFamily Medicine01/22/25Team MemberRelationshipSpecialtyStart DateEnd Date Rimma Kelly MD [address] [place] [address] PCP - GeneralFamily Medicine10/25/24Team MemberRelationshipSpecialtyStart DateEnd Date Rimma Kelly MD [address] [place] [address] [facility]10/25/24 FOR RECORDS PERTAINING TO PATIENTS WHO ARE [...] BE BASED ON THE PRIMARY CLINICAL RECORDS. [facility] [employer] [facility]. provides no warranty or guarantee of the accuracy or completeness of information in this document.
--- OUTSIDE RECORDS SUMMARY | 2025-07-22 15:05 | XMS_ITS | Patient Health Record ---
Author Organization [facility] in [place] Address [address] [place] [address] Care Team Providers Care Fly Fishing Guide Name Role Phone None, Unknown or Primary Care Provider Unavailab Gretchen Barnett Unavailable [phone] Hayley De La Cruz Unavailable [phone] Allergies Allergen (clinical drug ingredient) Drug/Non Drug Allergy documented on EMR Reaction Allergy Type Onset Date Status hydromorphone Dilaudid Unknown Drug Allergy ActiveNubainUnknownDrug AllergyActiveSubstance with sulfonamide structure and antibacterial mechanism of action (substance)Sulfa AntibioticsUnknownDrug AllergyActive Results Component Value Reference Range Notes XR foot LT min 3V (Not yet r eviewed by provider) Interpretation: Performing Lab: Notes/Report: Source Facility: [place] [address] XRay Report Signed Patient: DAKSHA DELGADO MR#: [id number] : 1950 Acct:[id number] Age/Sex: 73 / F ADM Date: 08/15/24 Loc: RAD Attending Dr: Gretchen Mayo D.P.M. Ordering Physician: Gretchen Mayo D.P.M. Date of Service: 08/15/24 Procedure(s): XR foot LT min 3V Accession Number(s): [id number] cc: Gretchen Mayo D.P.M.; [address] [place] [address] Patient Name: DAKSHA DELGADO MRN: [id number] date: 1950 Sex: F Assigned Patient Location: [facility] Current Patient Location: Accession/Order Number: [id number] Exam Date: 08/15/2024 09:23 Report Date: 08/16/2024 06:58 At the request of: GRETCHEN MAYO Procedure: XR foot LT min 3V PROCEDURE: XR foot LT min 3V HISTORY: Left Foot Pain COMPARISON: XR foot left 07/29/2024, CT foot left 07/29/2024 FINDINGS: BONES:No visible fracture or dislocation. Degenerative enthesopathic spurring of the calcaneus. SOFT TISSUES:Images were obtained to cast material which limits evaluation. Mild soft tissue swelling. EFFUSION:None visible. OTHER: Negative. XR/XR foot LT min 3V IMPRESSION: 1. No visible fractures/acute abnormality. Known fractures involving base of second, third, and fourth metatarsals were only visible on the prior CT study. Electronically authenticated by: MANNY FORDE Date: 08/16/2024 06:58 Dictated By: Manny Forde M.D. Signed By: 08/16/24 0701 DD/ 0658 TD/TT: Home Companion: XR foot LT min 3V (Not yet r eviewed by provider) Interpretation: Performing Lab: Notes/Report: Source Facility: [place] [address] [place] [address] XRay Report Signed Patient: DAKSHA DELGADO MR#: [id number] : 1950 Acct:[id number] Age/Sex: 73 / F ADM Date: 09/12/24 Loc: RAD Attending Dr: Gretchen Mayo D.P.M. Ordering Physician: Gretchen Mayo D.P.M. Date of Service: 09/12/24 Procedure(s): XR foot LT min 3V Accession Number(s): [id number] cc: Gretchen Mayo D.P.M.; RIMMA KELLY [place] [address] Patient Name: DAKSHA DELGADO MRN: [id number] date: 1950 Sex: F Assigned Patient Location: [facility] Current Patient Location: Accession/Order Number: [id number] Exam Date: 09/12/2024 13:35 Report Date: 09/13/2024 06:25 At the request of: GRETCHEN MAYO Procedure: XR foot LT min 3V PROCEDURE: XR foot LT min 3V HISTORY: LEFT FOOT PAIN COMPARISON: XR foot left 08/29/2024 FINDINGS: BONES:Mild degenerative changes at the second third tarsal-metatarsal joints. Degenerative changes of the first metatarsophalangeal joint. Degenerative enthesopathic spurring of the calcaneus. SOFT TISSUES:No visible soft tissue swelling. EFFUSION:None visible. OTHER: Negative. XR/XR foot LT min 3V IMPRESSION: 1. Mild degenerative changes versus healing fractures at base of second third metatarsals. Prior CT describes nondisplaced fractures at base of second fourth metatarsals. Electronically authenticated by: MANNY FORDE Date: 09/13/2024 06:25 Dictated By: Manny Forde M.D. Signed By: 09/13/24626 DD/ 4 TD/TT: Home Companion: XR foot LT min 3V (Not yet r eviewed by provider) Interpretation: Performing Lab: Notes/Report: Source Facility: [place] [address] [place] [address] XRay Report Signed Patient: DAKSHA DELGADO MR#: [id number] : 1950 Acct:[id number] Age/Sex: 73 / F ADM Date: 10/03/24 Loc: RAD Attending Dr: Gretchen Mayo D.P.M. Ordering Physician: Gretchen Mayo D.P.M. Date of Service: 10/03/24 Procedure(s): XR foot LT min 3V Accession Number(s): [id number] cc: Gretchen Mayo D.P.M.; [place] [address] Patient Name: DAKSHA DELGADO MRN: [id number] date: 1950 Sex: F Assigned Patient Location: RAD Current Patient Location: RAD Accession/Order Number: [id number] Exam Date: 10/03/2024 10:35 Report Date: 10/03/2024 12:48 At the request of: GRETCHEN MAYO Procedure: XR foot LT min 3V PROCEDURE: XR foot LT min 3V COMPARISON: 09/12/2024 HISTORY: left foot pain FINDINGS: BONES:No acute fracture or dislocation. Moderate degenerative changes with joint space narrowing marginal osteophyte formation. Moderate enthesopathic spurring of the calcaneus. SOFT TISSUES:Negative. No visible soft tissue swelling. EFFUSION:None visible. OTHER: Negative. XR/XR foot LT min 3V IMPRESSION: Moderate osteoarthritis Electronically authenticated by: CARLOS YBARRA Date: 10/03/2024 12:48 Dictated By: Carlos Ybarra M.D. Signed By: 10/03/24 1250 DD/ 1248 TD/TT: Home Companion: XR foot LT min 3V (Not yet r eviewed by provider) Interpretation: Performing Lab: Notes/Report: Source Facility: [place] [address] XRay Report Signed Patient: DAKSHA DELGADO MR#: [id number] : 1950 Acct:[id number] Age/Sex: 73 / F ADM Date: 11/21/24 Loc: RAD Attending Dr: Gretchen Mayo D.P.M. Ordering Physician: Gretchen Mayo D.P.M. Date of Service: 11/21/24 Procedure(s): XR foot LT min 3V Accession Number(s): [id number] cc: Gretchen Mayo D.P.M.; [place] [address] Patient Name: DAKSHA DELGADO MRN: [id number] date: 1950 Sex: F Assigned Patient Location: RAD Current Patient Location: RAD Accession/Order Number: [id number] Exam Date: 11/21/2024 11:38 Report Date: 11/21/2024 11:43 At the request of: GRETCHEN MAYO DPNat Procedure: XR foot LT min 3V LEFT FOOT - 3 views COMPARISON: 10/03/2024 CLINICAL DATA: Chronic pain across the dorsum of the foot and limping. History of proximal metatarsal fractures Weightbearing AP, lateral and oblique views were obtained. No acute fractures or dislocation are seen. There are degenerative changes involving some of the interphalangeal joints as well as at the joints of the first toe. Posterior and plantar calcaneal spurs are again seen. There is minor spurring at the dorsum of the tarsals. No focal soft tissue swelling is noted. There are no significant soft tissue abnormalities. XR/XR foot LT min 3V IMPRESSION: DEGENERATIVE CHANGES. NO ACUTE BONY FINDINGS. Impression dictated by: Adriana Small M.D.11/21/2024 11:43 AM Dictation Location: [place] [address] Electronically authenticated by: [id number] Y Date: 11/21/2024 11:43 Dictated By: Adriana Small M.D. Signed By: 11/21/24 1146 DD/ 1143 TD/TT: Home Companion: XR foot LT min 3V (Not yet r eviewed by provider) Interpretation: Performing Lab: Notes/Report: Source Facility: [place] [address] XRay Report Signed Patient: DAKSHA DELGADO MR#: [id number] : 1950 Acct:[id number] Age/Sex: 73 / F ADM Date: 08/29/24 Loc: RAD Attending Dr: Gretchen Mayo D.P.M. Ordering Physician: Gretchen Mayo D.P.M. Date of Service: 08/29/24 Procedure(s): XR foot LT min 3V Accession Number(s): [id number] cc: Gretchen Mayo D.P.M.; [address] [place] [address] Patient Name: DAKSHA DELGADO MRN: [id number] date: 1950 Sex: F Assigned Patient Location: [facility] Current Patient Location: Accession/Order Number: [id number] Exam Date: 08/29/2024 13:00 Report Date: 08/30/2024 07:16 At the request of: GRETCHEN MAYO Procedure: XR foot LT min 3V PROCEDURE: XR foot LT min 3V COMPARISON: 08/15/2024 HISTORY: pain in left foot M79.672 FINDINGS: BONES:No acute fracture or dislocation. Mild to moderate degenerative changes with marginal osteophyte formation. Enthesopathic spurring of the calcaneus SOFT TISSUES:Negative. No visible soft tissue swelling. EFFUSION:None visible. OTHER: Negative. XR/XR foot LT min 3V IMPRESSION: Degenerative changes. Previously identified fractures are seen by plain film Electronically authenticated by: CARLOS YBARRA Date: 08/30/2024 07:16 Dictated By: Carlos Ybarra M.D. Signed By: 08/30/24717 DD/ 5 TD/TT: Home Companion: Reason For Referral Reason Referral to [facility] for PT Diagnosis 1 Nondisplaced fractur e of third metatarsal bone, left foot, initial encounter for closed fracture (S92.335A) Referral Organization [facility] [place] (PODIATRY) Referring Provider First Name Gretchen Referring Provider Last Name Maria Esther Referring Provider Speciality Podiatry Referred Provider Specialty Physician As sistant Referral Priority Routine Diagnosis 1 Left foot pain (M79. 672) Referral Organization [facility] [place] (PODIATRY) Referring Provider First Name Gretchen Referring Provider Last Name Maria Esther Referring Provider Speciality Podiatry Referred Provider Specialty Pharmacist Referral Priority Routine Medications Medication SIG (Take, Route, Frequency, Duration) Notes Start Date End Date Status metFORMIN HCl 500 MG 1 tablet with a meal Orally Once a day 08/01/2024ctiveMeloxicam 15 MG1 tablet Orally Once a day08/01/2024ctive Lisinopril 20 MG1 tablet Orally Once a day08/01/2024ctiveglipiZIDE 5 MG1 tablet 30 minutes before breakfast Orally Once a day08/01/2024ctiveGabapentin 300 MG1 capsule Orally Once a day08/01/2024ctivePantoprazole SodiumActiveoxyBUTYnin Chloride 5 MG1 tablet Orally Once a day08/01/2024ctive Social History Tobacco Use: Social History Observation Description Date Details (start date - stop date) Never Smoker NA - NA Tobacco Control (Standard) Question Answer Notes Tobacco use: Nonsmoker Vital Signs Heart Rate 84 /min 11/21/2024 Ahsfmgszsco23.2 degrees Pquvyjrrzz62/18/2024espiratory Rate16 /min11/21/2024 Lejitbxx91 %11/21/2024 Encounters Encounter Location Date Provider Diagnosis [facility] (PODIATRY) [address] [place], [place] [address] [address] 08/01/2024 Gretchen Mayo Nondisplaced fracture of second metatarsal bone, left foot, initial encounter for closed fracture S92.325A ; Nondisplaced fracture of third metatarsal bone, left foot, initial encounter for closed fracture S92.335A and Nondisplaced fracture of fourth metatarsal bone, left foot, initial encounter for closed fracture S92.345A [facility] (PODIATRY) [address] [place] [address] [place] [address] 08/15/2024 Gretchen Mayo Nondisplaced fracture of second metatarsal bone, left foot, initial encounter for closed fracture S92.325A ; Nondisplaced fracture of third metatarsal bone, left foot, initial encounter for closed fracture S92.335A ; Nondisplaced fracture of fourth metatarsal bone, left foot, initial encounter for closed fracture S92.345A and Left foot pain M79.672 [facility] (PODIATRY) [address] [place], [place] [address] [address] 08/29/2024 Gretchen Maria Estehr Nondisplaced fracture of second metatarsal bone, left foot, initial encounter for closed fracture S92.325A ; Nondisplaced fracture of fourth metatarsal bone, left foot, initial encounter for closed fracture S92.345A ; Nondisplaced fracture of third metatarsal bone, left foot, initial encounter for closed fracture S92.335A and Left foot pain M79.672 [facility] (PODIATRY) [address] [place] [address] [place] [address] 09/12/2024 Gretchen Mayo Nondisplaced fracture of second metatarsal bone, left foot, initial encounter for closed fracture S92.325A ; Nondisplaced fracture of third metatarsal bone, left foot, initial encounter for closed fracture S92.335A and Nondisplaced fracture of fourth metatarsal bone, left foot, initial encounter for closed fracture S92.345A [facility] (PODIATRY) [address] [place] [address] [place] [address] 10/03/2024 Gretchen Mayo Nondisplaced fracture of third metatarsal bone, left foot, initial encounter for closed fracture S92.335A ; Nondisplaced fracture of fourth metatarsal bone, left foot, initial encounter for closed fracture S92.345A ; Nondisplaced fracture of second metatarsal bone, left foot, initial encounter for closed fracture S92.325A and Left foot pain M79.672 [facility] (PODIATRY) [address] [place] [address] [place] [address] 11/21/2024 Gretchen Mayo Nondisplaced fracture of second metatarsal bone, left foot, initial encounter for closed fracture S92.325A ; Nondisplaced fracture of third metatarsal bone, left foot, initial encounter for closed fracture S92.335A ; Nondisplaced fracture of fourth metatarsal bone, left foot, initial encounter for closed fracture S92.345A and Left foot pain M79.672 [facility] (PODIATRY) [address] [place] [address] [place] [address] 09/06/2024 Hayley De La Cruz Nondisplaced fracture of second metatarsal bone, left foot, initial encounter for closed fracture S92.325A [facility] (PODIATRY) [address] [place] [address] [place] [address] 08/06/2024 Gretchen Mayo Pain in left foot M79.672 and Pain in left foot M79.672 [facility] (PODIATRY) [address] [place] [address] [place] [address] 11/22/2024 Gretchen Mayo Assessments Encounter Date Diagnosis (ICD Code) Assessment Notes Treatment Notes Treatment Clinical Notes Section Notes 08/15/2024 Nondisplaced fractur e of second metatarsal bone, left foot, initial encounter for closed fracture (ICD-10 - S92.325A) Patient is doing well. I recommended total contact cast and partial protected weightbearing with a walker. Follow-up in 2 weeks with weightbearing x-rays 08/15/2024Nondisplaced fracture of third metatarsal bone, left foot, initial encounter for closed fracture (ICD-10 - S92.335A)4Pain in left foot (ICD-10 - M79.672)4Pain in left foot (ICD-10 - M79.672)08/29/2024 Nondisplaced fracture of second metatarsal bone, left foot, initial encounter for closed fracture (ICD-10 - S92.325A)Patient is roughly 4 weeks from her initial injury and pain is controlled with OTC pain medicine. Idiscussion with her regarding the pros and cons of cast versus boot and the patient would like to return to a cast and partial weightbearing with use of a walker. Short leg cast was applied with taking care to pad all bony prominences. She will follow- up in 2 weeks for cast removal and repeat simulated weightbearing foot x-rays. 08/29/2024Nondisplaced fracture of fourth metatarsal bone, left foot, initial encounter for closed fracture (ICD-10 - S92.345A)08/01/2024Nondisplaced fracture of second metatarsal bone, left foot, initial encounter for closed fracture (I CD-10 - S92.325A)Patient seen and evaluated in presence of her . She was initially placed into a splint afterpresenting to the emergency department for midfoot fractures. Compartments are soft and compressible and swelling is controlled. She is placed into a well-padded short leg cast and may be partial protected weightbearing with use of a walker. She will follow-up in 2 to 3 weeks for x-rays and cast kzhloi8708/01/2024Nondisplaced fracture of third metatarsal bone, left foot, initial encounter for closed fracture (ICD-10 - S92.335A) 09/12/2024Nondisplaced fracture of second metatarsal bone, left foot, initial encounter for closed fracture (ICD-10 - S92.325A)Patient is over 6 weeks status post Lisfranc variant fracture and has been in a cast since her first visit. She has been walking in the cast without pain. I recommended transitioning to a cam boot and weight-bear as tolerated with walker or cane at her discretion. Follow- up in 3 weeks with weightbearing foot x-rays09/12/2024Nondisplaced fracture of third metatarsal bone, left foot, initial encounter for closed fracture (ICD-10 - S92.335A)09/06/2024Nondisplaced fracture of second metatarsal bone, left foot, initial encounter for closed fracture (ICD-10 - S92.325A)10/03/2024Nondisplaced fracture of third metatarsal bone, left foot, initial encounter for closed fracture (ICD-10 - S92.335A)Patient is roughly 2 months from Lisfranc variant fracture treated nonoperatively. She is doing pretty well but having some heel tightness/stiffness and anterior ankle pain as well as hypersensitivity over the dorsal foot. I recommended to begin transitioning out of the boot as pain allows and begin formal physical therapy. She will follow-up in 6 weeks.If she is having any midfoot pain then I would like weightbearing foot x-rays but if no midfoot pain no follow-up x-rays lgkwwfbey01/08/2025Nondisplaced fracture of fourth metatarsal bone, left foot, initial encounter for closed fracture (ICD-10 - S92.345A)11/21/2024Nondisplaced fracture of second metatarsal bone, left foot, initial encounter for closed fracture (ICD-10 - S92.325A)Patient is seeing slow and steady progress but continues to have hypersensitivity and neuritis like symptoms over the deep peroneal nerve. I did prescribe topical compound directed at neuropathy and sent to the local compounding pharmacy. She is to finish physical therapy up this week and I recommended that she continue with the exercises on her own for at least a month but if she wishes to extend physical therapy she will call the office. Otherwise she will follow-up in 3 months 11/21/2024Nondisplaced fracture of third metatarsal bone, left foot, initial encounter for closed fracture (ICD-10 - S92.335A)11/21/2024Nondisplaced fracture of fourth metatarsal bone, left foot, initial encounter for closed fracture (I CD-10 - S92.345A)10/03/2024Nondisplaced fracture of second metatarsal bone, left foot, initial encounter for closed fracture (ICD-10 - S92.325A)09/12/2024 Nondisplaced fracture of fourth metatarsal bone, left foot, initial encounter for closed fracture (ICD-10 - S92.345A)08/01/2024Nondisplaced fracture of fourth metatarsal bone, left foot, initial encounter for closed fracture (ICD-10 - S92.345A)08/29/2024Nondisplaced fracture of third metatarsal bone, left foot, initial encounter for closed fracture (ICD-10 - S92.335A)08/15/2024Nondisplaced fracture of fourth metatarsal bone, left foot, initial encounter for closed fracture (ICD-10 - S92.345A)08/15/2024Left foot pain (ICD-10 - M79.672) 08/29/2024Left foot pain (ICD-10 - M79.672)10/03/2024Left foot pain (ICD-10 - M79.672)11/21/2024Left foot pain (ICD-10 - M79.672) Plan Of Treatment Pending Test Test Name Order Date XR Foot LT (3 views) * 08/15/2024 XR Foot LT (3 views) * 08/29/2024 XR Foot LT (3 views) * 09/12/2024 XR Foot LT (3 views) * 10/03/2024 XR Foot LT (3 views) * 11/21/2024 XR foot LT min 3V 08/16/2024 XR foot LT min 3V 08/30/2024 XR foot LT min 3V 09/13/2024 XR foot LT min 3V 10/03/2024 XR foot LT min 3V 11/21/2024 Insurance Providers Payer Name Payer Address Payer Phone Subscriber Number Group Number Insured Name Patient Relationship to Insured Coverage Start Date Coverage End Date [place] [address] [place] [address] [id number] Marta Delgado - [facility] the [facility] [id number] [place] [id number], LindaSelf - patient is the insured Medical (General) History Medical History History ICD Code arthritis diabeteshigh blood pressurestomach ulcersjoint replacementvaricose veinsSurgical History Surgery Date(Month/Year) T & A Appendix removaltubalhysterectomycolonoscopy2 knee surgerieship replacement gallbladder removalTorn Achilles
--- OUTSIDE RECORDS SUMMARY | 2025-07-22 15:05 | XMS_ITS | Clinical Summary ---
Author Organization [facility] Address [id number] [address] [place] [address] Care Team Providers Care Radiologic Technology Instructor Name Role Phone Deven Bronson MD Primary Care Provider [phone] Allergies Active AllergyReactionsCriticalityNoted SbhaOerioztuToapaqgad69/16/2025 Gdrnmxdoypxkvo88/16/2056CrjuilufrvgnfSvfiuyoptYbsmvf83/15/2021Nalbuphine 07/16/20201335Piwdkwkgb27/16/2025Sulfa (Sulfonamide Antibiotics)07/16/2020 Medications MedicationSigDispense QuantityRefillsLast FilledStart DateEnd DateStatus lisinopril-hydroCHLOROthiazide (PRINZIDE,ZESTORETIC) 20-12.5 mg per tablet Take 1 tablet by mouth in the morning.Active oxybutynin XL (DITROPAN-XL) 5 mg 24 hr tablet Take 1 tablet (5 mg total) by mouth in the morning.Active metFORMIN (GLUCOPHAGE) 500 mg tablet Take 2 tablets (1,000 mg total) by mouth daily with breakfast.Active cyanocobalamin, vitamin B-12, (VITAMIN B12 ORAL) Take by mouth.Active doxylamine (SLEEP AID, DOXYLAMINE,) 25 mg tablet Take 1 tablet (25 mg total) by mouth nightly as needed for sleep.Active ascorbic acid (VITAMIN C ORAL) Take by mouth.Active multivit with calcium,iron,min (MULTIPLE VITAMIN, WOMENS ORAL) Take by mouth.Active oxyCODONE-acetaminophen (PERCOCET) 5-325 mg per tablet Take 1 tablet by mouth every 4 (four) hours as needed for pain.Active meloxicam (MOBIC) 15 mg tablet Take 1 tablet (15 mg total) by mouth in the morning.10/11/2020ctive pantoprazole (PROTONIX) 40 mg EC tablet Take 1 tablet (40 mg total) by mouth in the morning and 1 tablet (40 mg total) before bedtime.11/24/2020ctive Active Problems No known active problems Family History Medical HistoryRelationNameCommentsAlzheimer's diseaseFatherAlzheimer's disease MotherRelationNameStatusCommentsFatherDeceased (Age 94)MotherAlive Social History Tobacco UseTypesPacks/DayYears UsedDateSmoking Tobacco: NeverSmokeless Tobacco: NeverAlcohol UseStandard Drinks/WeekCommentsNot Currently0 (1 standard drink = 0.6 oz pure alcohol)ChildcareAnswerDate RhkarxprToqblikwsFfdtnpf79/20/2020 EmploymentAnswerDate ZocukusrLrtmpsmoneEgympdt00/20/2020Purpose - LifeAnswerDate RecordedPurpose and direction in yjdeMzyozsu97/11/2021CommentsUnknownSex and Gender InformationValueDate RecordedSex Assigned at BirthNot on fileLegal GkhJgiuho38/06/2015 12:10 PM EDTGender IdentityNot on fileSexual OrientationNot on file Last Filed Vital Signs Vital SignReadingTime TakenCommentsBlood Lrbhrypc103/7403 1:12 PM EDT Pulse--Djhjjoihxus93.8 ??C (96.5 ??F)12/08/2020 1:12 PM EDTRespiratory Rate-- Oxygen Saturation--Inhaled Oxygen Concentration--Zslutt197.8 kg (242 lb) 12/08/2020 1:12 PM QVCXhibcl814.2 cm (5' 7 )12/08/2020 1:12 PM EDTBody Mass Index37.903 1:12 PM EDT Plan of Treatment DateTypeDepartmentCare Team (Latest Contact Info)Bngvlxhmhmq11/16/2026 2:10 PM ESTOffice Visit [facility] Department of [facility] [address] [facility] [address] [place] [address] Enrique Corrales MD [address] [facility] [address] [place] [address] Health MaintenanceDue DateLast DoneCommentsStatin Use: Jqcyotzx30/24/1951 Depression Dllreumqc41/24/1963Adult BMI Zjlrlvvdv86/24/1969Diabetic Foot Exam 1968DTaP,Tdap and Td Vaccines (1 - Tdap)1969Zoster (Shingles) Vaccine (1 of 2)2000Fall Risk Aicjzaila25/24/2016COVID-19 Vaccine ( - 2024- season)/07/2024, 09/04/2022, 02/02/2022, Additional history existsInfluenza Tcshkol56/05/2022, 08/26/2021iabetic Ophthalmology Exam/Tobacco Eyxcjhylh97/ Medical Devices Not on file Insurance Care Teams Team MemberRelationshipSpecialtyStart DateEnd Date Deven Bronson MD [address] [place] [address] [facility]
--- OUTSIDE RECORDS SUMMARY | 2025-07-22 15:05 | XMS_ITS | Clinical Summary ---
Author Organization [facility] Address [address] [place] [address], [address] [place] [address] Care Team Providers Care Gasoline Service Attendant Name Role Phone Unavailable Primary Care Provider Unavailabl e Social History Tobacco UseTypesPacks/DayYears UsedDateSmoking Tobacco: Never Assessed CommentsUnknownSex and Gender InformationValueDate RecordedSex Assigned at Not on fileLegal LfwRjqjcj34/10/2013 10:58 AM ESTGender IdentityNot on file Sexual OrientationNot on file Plan of Treatment Not on file
--- OUTSIDE RECORDS SUMMARY | 2025-07-22 15:05 | XMS_ITS | Clinical Summary ---
Author Organization [facility] Address [address] [place] [address] Care Team Providers Care Insulation Blanket Maker Name Role Phone Deven Bronson MD Primary Care Provider [phone] Allergies Active AllergyReactionsCriticalityNoted DateCommentsHydromorphoneDizzinessMedium 12/08/2020 Other Reaction(s): Other (See Comments) Htrygmqfet48/21/2020 Other Reaction(s): Other (See Comments) Sulfa Aferojhpnnq77/21/2020 Other Reaction(s): Other (See Comments) Medications MedicationSigDispense QuantityRefillsLast FilledStart DateEnd DateStatus doxylamine (Unisom) 25 MG tablet Take 25 mg by mouth as needed at bedtimeActive gabapentin (Neurontin) 300 MG capsule Take 300 mg by mouth in the morning and 300 mg at noon and 300 mg in the evening.Active lisinopril-hydroCHLOROthiazide 20-12.5 MG tablet Take 1 tablet by mouth in the morning.Active meloxicam (Mobic) 15 MG tablet Take 15 mg by mouth in the morning.Active metFORMIN, OSM, (Fortamet) 500 MG 24 hr tablet Take 500 mg by mouth in the morning. Take with meals.Active oxybutynin XL (Ditropan-XL) 5 MG 24 hr tablet Take 5 mg by mouth in the morning.Active pantoprazole (ProtoNix) 40 MG EC tablet Take 40 mg by mouth in the morning.Active Active Problems No known active problems Family History RelationNameStatusCommentsFatherDeceasedMotherDeceased Social History Tobacco UseTypesPacks/DayYears UsedDateSmoking Tobacco: NeverSmokeless Tobacco: Never Tobacco Cessation:Counseling Given: Not Answered Alcohol UseStandard Drinks/WeekCommentsNot Currently0 (1 standard drink = 0.6 oz pure alcohol)CommentsUnknownSex and Gender InformationValueDate Recorded Sex Assigned at BirthNot on fileLegal XwsIstwmd35/15/2023 6:59 PM EDTGender IdentityNot on fileSexual OrientationNot on file Last Filed Vital Signs Vital SignReadingTime TakenCommentsBlood Tuicitle35/6405 10:25 AM EDT Yfmsr474502/19/2025 10:25 AM EDTTemperature--Respiratory Rate--Oxygen Saturation-- Inhaled Oxygen Concentration--Ifyxva72.9 kg (207 lb)02/19/2025 10:25 AM EDT Cjmhmr207.6 cm (5' 6 )02/19/2025 10:25 AM EDTBody Mass Index33.41002/19/2025 10:25 AM EDT Plan of Treatment Health MaintenanceDue DateLast DoneCommentsCT Afdscmlqvchw64/24/1951olonoscopy 1950olorectal Cancer Jdwyaxkwl23/24/1951FIT-DNA1950FIT1950 FOBT1950 5732Dmyzxxvfecday57/24/7946Uniwiphbs86/24/1991Pneumococcal Vaccine: 65+ Years (1 of 1 - PCV)2000Influenza Vaccine (#1)2022, 08/26/2021 Insurance Care Teams Team MemberRelationshipSpecialtyStart DateEnd Date Deven Bronson MD [address] [place] [address] [facility]
--- OUTSIDE RECORDS SUMMARY | 2025-07-22 15:05 | XMS_ITS | Clinical Summary ---
Author Organization [facility] Address [address] [place] [id number] Care Team Providers Care Mother Helper Name Role Phone No, Physician Primary Care Provider Unavailabl e Allergies Active AllergyReactionsCriticalityNoted DateCommentsHydromorphoneOther (See Comments)09/20/2024NalbuphineOther (See Comments)09/20/2024Sulfa (Sulfonamide Antibiotics)Other (See Comments)09/20/2024 Medications MedicationSigDispense QuantityRefillsLast FilledStart DateEnd DateStatus lisinopriL-hydrochlorothiazide (PRINZIDE,ZESTORETIC) 20-12.5 mg per tablet Take 1 (one) tablet by mouth daily .Active metFORMIN (FORTAMET) 500 MG (OSM) 24 hr tablet Take 1 (one) tablet (500 mg total) by mouth daily with breakfast .Active oxyBUTYnin (DITROPAN) 5 MG tablet Take 1 (one) tablet (5 mg total) by mouth 3 (three) times a day .Active meloxicam (MOBIC) 15 MG tablet Take 1 (one) tablet (15 mg total) by mouth daily .Active glipiZIDE (GLUCOTROL) 5 MG tablet Take 1 (one) tablet (5 mg total) by mouth 2 (two) times a day before meals . Active pantoprazole (PROTONIX) 40 MG tablet Take 1 (one) tablet (40 mg total) by mouth daily .Active gabapentin (NEURONTIN) 300 MG capsule Take 1 (one) capsule (300 mg total) by mouth every 8 (eight) hours .Active Social History Tobacco UseTypesPacks/DayYears UsedDateSmoking Tobacco: NeverSmokeless Tobacco: Never Tobacco Cessation:Counseling Given: Not Answered Alcohol UseStandard Drinks/WeekCommentsNot Currently0 (1 standard drink = 0.6 oz pure alcohol)CommentsUnknownSex and Gender InformationValueDate Recorded Sex Assigned at BirthNot on fileLegal XfkChuohv71/26/2024 2:03 PM ESTGender IdentityNot on fileSexual OrientationNot on file Last Filed Vital Signs Vital SignReadingTime TakenCommentsBlood Aikrymwj748/9509/20/2024 2:42 PM EST Ujvlq2654/26/2024 2:42 PM FWYFvuzjoswhxf50.4 ??C (97.5 ??F)09/20/2024 2:42 PM ESTRespiratory Irks586611/21/2023 3:33 PM ESTOxygen Dmyxdtwztu71%09/20/2024 2:46 PM ESTInhaled Oxygen Concentration--Sjzqvf67 kg (205 lb)09/20/2024 2:46 PM EST Jcotfi037.1 cm (5' 5 )09/20/2024 2:46 PM ESTBody Mass Index34.11111/21/2023 2:46 PM EST Plan of Treatment Health MaintenanceDue DateLast RsbyTilepjfsX6B74/24/1951CT Colonography 1950 2302Lwtolwjsguv65/24/1951olorectal Cancer Screening/Tabbntljwm62/24/1951 Dexa Scan1950Fecal DNA1950Fecal occult blood test (FOBT,FIT) 1950Tetanus: Every 10yrs (RETIRED)1950Medicare Wellness Visit 4Diabetic Eye Exam1960iabetic Foot Exam1960Urine (micro)albumin/creatinine ratio - Vffbeyec09/24/1961epression Screening/Follow- Up (PHQ-2/9)1962Hepatitis C Srdxiwfuc26/24/7467Rzojsrawg36/24/1991Flexible rrmgahndmjogk95/24/2001Pneumococcal Vaccine: 50+ Years (1 of 1 - PCV)2000 Zoster Vaccines (1 of 2)2000Falls Risk Yscgzcykas87/24/2016COVID-19 Vaccine ( season)501/07/2024, 09/04/2022, 02/02/2022, Additional history existsInfluenza Vaccine (#1)/05/2022, 08/26/2021 eGFR ??? Zgxkwlsi61/, 4RSV Vaccines (1 - 1-dose 75+ series)2025 Procedures Procedure NamePriorityDate/TimeAssociated DiagnosisCommentsCHEM 7Add-On 09/20/2024 2:49 PM EST from Last 3 Months or Most Recently Relevant to Health Maintenance Results * (ABNORMAL) Chem 7 (09/20/2024 2:49 PM EST)ComponentValueRef RangeTest Method Analysis TimePerformed AtPathologist TeoyggheiCzqwyp301226 - 145 mmol/L 09/20/2024 4:06 PM ESTW ([facility]) LABPotassium4.83.5 - 5.1 mmol/L111/21/2023 4:06 PM ESTW ([facility]) NNGCgekmdhs32(L)98 - 108 mmol/L111/21/2023 4:06 PM ESTW ([facility]) ZTMMkskykiodrg5061 - 32 mmol/L111/21/2023 4:06 PM ESTW ([facility]) LABAnion Gap22(H)10 - 20 mmol/L111/21/2023 4:06 PM ESTW ([facility]) WESPaivndn442(H)65 - 99 mg/dL09/20/2024 4:06 PM ESTWMC ([facility]) KTVOAU613 - 25 mg/dL09/20/2024 4:06 PM ESTW ([facility]) LABCreatinine1.060.60 - 1.10 mg/dL09/20/2024 4:06 PM ESTWMC ([facility]) FYGoTFJ11(L)>=60 mL/min/1.73 m209/20/2024 4:06 PM ESTW ([facility]) LAB Comment: Estimated GFR was calculated using the 2020 CKD-EPI creatinine equation. Estimated GFR was calculated using the 2020 CKD-EPI creatinine equation. BUN/Creatinine Ratio19.810.0 - 20.012/ 4:06 PM ESTW ([facility]) LABSpecimen (Source)Anatomical Location / LateralityCollection Method / VolumeCollection TimeReceived TimeBloodBLOOD SPECIMEN / UnknownVenipuncture / Xfdfosm8309/20/2024 2:49 PM EST09/20/2024 2:52 PM EST Narrative [facility] ([facility]) LAB - 09/20/2024 4:06 PM EST [facility] has implemented the eGFR calculation approach that does not have a coefficient for race that conforms to the NKF-ASN Task Force Recommendations. Authorizing ProviderResult TypeResult StatusFallon Aguilar CNPLAB BLOOD ORDERABLESFinal ResultPerforming OrganizationAddressCity/State/ZIP CodePhone Number [facility] ([facility] LAB [address] [place] [address] from Last 3 Months or Most Recently Relevant to Health Maintenance Insurance Care Teams Team MemberRelationshipSpecialtyStart DateEnd Date No, Physician [facility] PCP - Lclzuiq68/26/24
--- OUTSIDE RECORDS SUMMARY | 2025-07-22 15:05 | XMS_ITS | Clinical Summary ---
Author Organization [facility] Address [address] [place] [address] Phone Care Team Providers Care Redeye Gunner Name Role Phone Shantel King MD Primary Care Provider [phone] Social History Tobacco UseTypesPacks/DayYears UsedDateSmoking Tobacco: Never Assessed CommentsUnknownSex and Gender InformationValueDate RecordedSex Assigned at Not on fileLegal BgnHpmclz82/26/2022 11:29 AM ESTGender IdentityNot on file Sexual OrientationNot on file Plan of Treatment Not on file Care Teams Team MemberRelationshipSpecialtyStart DateEnd Date Shantel King MD [address] [place] [address] PCP - General03/17/22
--- NOTE | 2025-07-22 16:01 | P.CN_ITS ---
Consult Note: HPI Data of Consult Patient: new to practice Consult date: 07/22/25 Requesting Physician: Diogenes Gonzalez MD Primary Care Provider: ELISABETH LEA Consult Narrative Reason for consult: right hip pain Narrative: 74yof who presents for evaluation. longstanding right hip pain. imaging reviewed, which shows right hip osteoarthritis. continues in a series of provider directed home exercises >6 weeks, without lasting benefit. uses meloxicam. denies adverse med side effects. cc:: CC: Diogenes Gonzalez MD Review of Systems ROS Status of ROS 10 or more systems reviewed and unremark able except as noted in history and below PFSH PFSH Social History Little interest or pleasure in doing things: not at all Feeling down, depressed, or hopeless: not at all Meds Home Medications and Allergies Home Medications ?Medication ?Instructions ?Recorded ?Confirmed ?Type oxycodone-acetaminophen 5 mg-325 1 tab PO Q8H PRN pain 5 days #15 07/29/24 Rx mg tablet (Percocet) tabs Allergies Allergy/AdvReac Type Severity Reaction Status Date / Time Sulfa (Sulfonamide Allergy Severe Unknown Verified 07/29/24 14:55 Antibiotics) hydromorphone (From Dilaudid) AdvReac Severe Dizziness Verified 07/29/24 14:55 nalbuphine (From Nubain) AdvReac Severe Unknown Verified 07/29/24 14:55 Exam Narrative Exam Narrative: Psych-alert and oriented x 3.? Attentive and appropriate, constitutionally normal, displays normal mood and affect per situation.? There are no obvious deficits in memory, reasoning, or intellect.? Skin-no obvious rashes, bruising, erythema noted to the patient's area of pain. Extremities- extremities are warm with minimal edema and palpable pulses. Hip-tenderness to palpation is noted over the right hip joint.? Pain is elicited with internal and external rotation of the hip.? Hip provocative maneuvers are positive and consistent with the patient's normal pain.? Coordination remains intact.? Gait remains antalgic. Assessment and Plan Assessment and Plan (1) Osteoarthritis of right hip: Qualifiers: Osteoarthritis type: primary Qualified Code(s): M16.11 - Unilateral primary osteoarthritis, right hip Plan 74yof who presents for evaluation. failed conservative measures, as noted. imaging reviewed, as noted. given symptoms and imaging, prudent to attempt right hip injection under fluoroscopic guidance. she is in agreement. meds reviewed, no changes. follow up after procedure.
== END 2025-07-22 14:54 | disposition home or self-care (01) ==
LOC: PM 14:53
PROVIDERS: PCP Nurse Practitioner; Visit Provider Anesthesiology
DX: M16.11 Unilateral primary osteoarthritis, right hip (principal)
CPT/HCPCS: G0463

== ENCOUNTER 2025-08-05 09:26 | Day surgery (SDC) | payer MEDICARE, SELFPAY ==
--- OUTSIDE RECORDS SUMMARY | 2025-08-05 09:31 | XMS_ITS | CCD ---
Author Organization [facility] Care Team Providers Care Ventilation Equipment Tender Name Role Phone Atif Childs Unavailable ROJO [...] Unavailable HAY ., DR GORMAN Consulting Unavailable INEZ TARAS Consulting Unavailable ROJO ., DR TERRI [...] [place] Unavailable Rimma Kelly. Primary Care Physician [phone] Rimma Kelly Attending Unavailable Rimma Kelly Attending Unavailable Rimma Kelly Attending Unavailable Rimma Kelly Attending Unavailable Rimma Kelly Attending Unavailable Rimma Kelly Admitting Unavailable Rimma Kelly Attending Unavailable Rimma Kelly Attending Unavailable Rimma Kelly Attending Unavailable CARLOS RIVERS Attending Unavailable NO, PHYSICIAN Primary Care Unavailable Rimma Kelly MD Primary Care Provider [phone] NANCY CORRALES Attending Unavailable TERRI ROJO Referring Unavailable RIMMA KELLY Primary Care Unavailable NANCY CORRALES Referring Unavailable RIMMA KELLY Primary Care Unavailable Rimma Kelly MD Primary Care Provider SULMA WESTON Attending Unavailable SULMA WESTON Attending Unavailable Rimma Kelly MD Primary Care Provider [phone] NANCY CORRALES Attending Unavailable RIMMA KELLY E Referring Unavailable RIMMA KELLY E Primary Care Unavailable NANCY CORRALES Referring Unavailable RIMMA KELLY E Primary Care Unavailable Rimma Kelly E. Admitting Unavailable Rimma Kelly. Attending Unavailable Tigist, DRYWALL FINISHER Mary L Attending Unavailable Tigist, DRYWALL FINISHER Mary L Attending Unavailable Tigist, DRYWALL FINISHER Mary L Admitting Unavailable Tigist, DRYWALL FINISHER Mary L Attending Unavailable Tigist, Mary L Admitting Unavailable Tigist, Mary L Attending Unavailable Tigist, Mary L Attending Unavailable Carlos BIGGS, Diogenes Barreto Attending Unavailable Allergies Allergy ClassificationReported Allergen(s)Allergy TypeDate of OnsetReaction(s) Facility (15 sources)Nalbuphine; Translations: [Nubain]Drug AllergyClouded consciousness (finding)[facility] (9 sources)Sulfonamides (Antibiotic)Propensity to adverse reactionsUnknowResearch [facility] [place] Other (1 source)bee venomDrug allergy (disorder)[facility] (4 sources)HYDROmorphone; Translations: [Dilaudid]Drug Wicmdbe78-24-2701[facility] (1 source)Sulfonamides (Antibiotic)Drug allergy (disorder)[facility] (8 sources)celecoxib; Translations: [celecoxib]Drug Accvniu78-16-2209PpuyxiSelect [facility] (8 sources)Clarithromycin; Translations: [clarithromycin]Drug Kjdtnzy11-78-9920 [facility] (16 sources)HYDROmorphone; Translations: [hydromorphone]Drug Dcerqbm60-70-6705 Clouded consciousness (finding), [facility]inessSt[facility] (19 sources)Nalbuphine; Translations: [nalbuphine]Drug Ihjbrnr35-11-4115Naepkcw (qualifier value), Clouded consciousness (finding)[facility] (8 sources)rofecoxib; Translations: [rofecoxib]Drug Udvxuop29-87-9486XmmwgxC[facility] [place] (5 sources)sulfabenzamide / Sulfacetamide / sulfathiazole; Translations: [triple sulfa topical]Drug AllergyUnknown (qualifier value)[facility] (8 sources)Sulfonamides (Antibiotic); Translations: [SULFA (SULFONAMIDE ANTIBIOTICS)]Propensity to adverse reactions to drug (disorder)03-73-2532[facility] (6 sources)Sulfonamides (Antibiotic)Drug Centfsirogo59-69-4569[facility] Medications Current Medications MedicationDrug Class(es)DatesSig (Normalized)Sig (Original)0.25 MG, 0.5 MG Dose 3 ML semaglutide 0.68 MG/ML Pen Injector [Ozempic] (1 source)Start: 63-54-6406Nqawspq 2 mg/3 mL (0.25 mg or 0.5 mg dose) subcutaneous solution 0.25 mg, SubCutaneous, qWeek, # 3 mL, Refills(s) 0, Pharmacy: [facility], 165, cm, 03/27/24 10:13:00 EDT, Height/Length Dosing, 107.9, kg, 03/27/24 10:13:00 EDT, Weight Dosing Start Date: 03/27/24 Status: Orderedallopurinol 100 mg oral tablet (9 sources)Xanthine Oxidase Inhibitortake 1 tablet by mouth every twenty-four hoursAllopurinol 100 MG 1 tablet Orally Once a day Activeascorbic acid 1000 mg oral tablet (6 sources)Vitamin CStart: 81-11-0106llbs 1 tablet by mouth once dailyascorbic acid 1000 mg oral tablet 1,000 mg = 1 tab(s), Oral, Daily, # 90 tab(s), Refills(s) 3, Pharmacy: [facility], 167.6, cm, 02/02/23 13:51:00 EDT, Height/Length Dosing, 111.4, kg,02/02/23 13:51:00 EDT, Weight Dosing Start Date: 02/02/23 Status: Orderedascorbic acid (VITAMIN C ORAL) Take by mouth. RxsvxhJ10 Fast Dissolve 5000 MCG (8 sources)B12 Fast Dissolve 5000 MCG as directed Orally ActiveBlood pressure cuff-wrist (2 sources)Start: 69-01-7391Mglew pressure cuff-wrist Blood pressure cuff-wrist, See Instructions, 1 EA, 0, As Directed-Check blood pressure 1-2 hours after taking BP medication., [facility], Supply Start Date: 12/22/22 Status: Ordered Quantity: 1.0 Unit: EA Repeat number: 1Start: 83-40-3397Ureif pressure cuff-wrist Blood pressure cuff-wrist, See Instructions, 1 EA, 0, As Directed-Check blood pressure 1-2 hours after taking BP medication., [facility], Supply Start Date: 12/22/22 Status: Orderedcelecoxib 100 mg oral capsule (3 sources)Nonsteroidal Anti-inflammatory DrugStart: 58-53-1518ccws 1 capsule by mouth every twelve hoursCeleBREX 100 MG 1 capsule with food Orally bid for 30 days Mar, ActiveCPAP (2 sources)Start: 27-53-8729PNMX CPAP, See Instructions, 1 EA, 0, c-pap machine w/ humidifier and rx must state motor life exceeded repair or replacement. Pressure setting , Supply Start Date: 01/04/24 Status: Ordered Quantity: 1.0 Unit: EA Repeat number: 1 Indications: Obstructive sleep apnea (adult) (pediatric);Start: 22-88-2793TRBZ CPAP, See Instructions, 1 EA, 0, c-pap machine w/ humidifier and rx must state motor life exceeded repair or replacement. Pressure setting 11, Supply Start Date: 01/04/24 Status: Orderedcyanocobalamin, vitamin B-12, (VITAMIN B12 ORAL) (5 sources)cyanocobalamin, vitamin B-12, (VITAMIN B12 ORAL) Take by mouth. Activecyclobenzaprine hydrochloride 5 mg oral tablet (9 sources)Muscle RelaxantStart: 85-53-9301fgqf 0.5-1 tablets by mouth every eight hoursCyclobenzaprine HCl 5 MG 1/2 to 1 tab Orally Every 8 hours for 14 days Nov, Activediclofenac sodium 0.01 mg/mg topical gel (4 sources)Nonsteroidal Anti-inflammatory DrugStart: 79-98-7827Cfzlpkhzkl Sodium 1 % apply 1-2 grams to affected area Externally Four times a day for 30 days January, Activedoxylamine succinate 25 mg oral tablet (11 sources)take 1 tablet by mouth once daily as needed for sleepdoxylamine (SLEEP AID, DOXYLAMINE,) 25 mg tablet Take 1 tablet (25 mg total) by mouth nightly as needed for sleep. Activeequate sleep aid (2 sources)Start: 06-50-0915fkfo 1 tablet by mouth once dailyequate sleep aid equate sleep aid, 1 tab, Oral, Daily Insomnia Start Date: 03/05/20 Status: Ordered Repeat number: 1Start: 74-25-4736wwdk 1 tablet by mouth once dailyequate sleep aid equate sleep aid, 1 tab, Oral, Daily Insomnia Start Date: 03/05/20 Status: Orderedgabapentin 300 mg oral capsule (9 sources)Anti-epileptic AgentStart: 41-46-5536cpgqludpuq 300 mg Cap See Instructions, TAKE 2 CAPSULES BY MOUTH TWICE DAILY, 2 (TWO) at night 1 inIN THE MORNING and one after lunch, # 360 EA, Refills(s) 0, Pharmacy: [facility], 165, cm, 10/02/24 11:39:00 EST, Height/Length Dosing, 97, kg, 10/02/24 11:39:00 EST, Weight Dosing Start Date: 10/03/24 Status: Ordered Quantity: 360.0 Unit: EA Repeat number: 1Start: 90-65-5362kwtj 1 capsule by mouth twice daily after lunchgabapentin 300 mg Cap 600 mg = 2 cap(s), Oral, BID, 2 at night 1 in the am and one after lunch, # 360 cap(s), Refills(s) 0, Pharmacy: [facility], 165, cm, 06/26/24 15:02:00 EDT, Height /Length Dosing, 103.7, kg, 06/26/24 15:02:00 EDT, Weight Dosing Start Date: 07/24/24 Status: OrderedStart: 51-08-7081nzzd 1 capsule by mouth every eight hoursGabapentin 100 MG 1 capsule Orally three times a day for 30 days Aug, ActiveglipiZIDE 5 mg oral tablet (4 sources)SulfonylureaStart: 10-04-2023 End: 20-27-9972dbhx 1 tablet by mouth twice dailyglipiZIDE 5 mg Tab 5 mg = 1 tab(s), Oral, BID, # 180 tab(s), Refills(s) 3, Pharmacy: [facility], 165, cm, 10/04/23 11:01:00 EST, Height/Length Dosing, 107, kg, 10/04/23 11:01:00 EST, Weight Dosing Start Date: 10/04/23 Status: Ordered hydroCHLOROthiazide 12.5 mg / lisinopril 20 mg oral tablet (20 sources)Thiazide Diuretic, Angiotensin Converting Enzyme InhibitorStart: 72-81-9642gqzsgeykjpfartpcmgr-lisinopril 12.5 mg-20 mg Tab 1 tab(s), Oral, Daily, 180 tab(s), Refill(s) 3, [facility], 165, cm, 10/02/24 11:39:00 EST, Height/Length Dosing, 97, kg, 10/02/24 11:39:00 EST, Weight Dosing Start Date: 10/02/24 Status: Ordered Quantity: 180.0 Unit: tab(s) Repeat number: 4Start: 68-68-9456mdauzypeppiokqzhueb-lisinopril 12.5 mg-20 mg Tab 1 tab(s), Oral, BID, 180 tab(s), Refill(s) 3, [facility], 165, cm, 10/04/23 11:01:00 EST, Height/Length [...] mg oral tablet (20 sources)Nonsteroidal Anti-inflammatory DrugStart: 66-91-9062yydj 1 tablet by mouth in the morningmeloxicam (MOBIC) 15 mg tablet Take 1 tablet (15 mg total) by mouth in the morning. 10/11/2020 Woypgl87 hr metFORMIN hydrochloride 500 mg extended release oral tablet (20 sources)BiguanideStart: 37-93-9759aisd 2 tablets by mouth twice daily Glucophage XR 500 mg Tab-ER 1,000 mg = 2 tab(s), Oral, BID, # 360 tab(s), Refills(s) 1, Pharmacy: [facility], 165, cm, 10/02/24 11:39:00 EST, Height/Length Dosing, 97, kg, 10/02/24 11:39:00 EST, Weight Dosing Start Date: 10/02/24 Status: Ordered Quantity: 360.0 Unit: tab(s) Repeat number: 2Start: 55-24-8784ccmg 2 tablets by mouth twice dailyGlucophage XR 500 mg Tab-ER 1,000 mg = 2 tab(s), Oral, BID, # 360 tab(s), Refills(s) 1, Pharmacy: [facility], 165, cm, 06/26/24 15:02:00 EDT, Height/Length [...] (MULTIPLE VITAMIN, WOMENS ORAL) Take by mouth. Bmhuvp47 hr oxybutynin chloride 5 mg extended release oral tablet (20 sources)Cholinergic Muscarinic AntagonistStart: 61-51-5836iiyv 1 tablet by mouth once dailyoxybutynin 5 mg ER Tab See Instructions, TAKE 1 TABLET BY MOUTH DAILY, # 90 tab(s), Refills(s) 3, Pharmacy: [facility], 165, cm, 10/02/24 11:39:00 EST, Height/Length Dosing, 97, kg, 10/02/24 11:39:00 EST, Weight Dosing Start Date: 10/02/24 Status: Ordered Quantity: 90.0 Unit: tab(s) Re peat number: 4Start: 60-54-7184wnfi 1 tablet by mouth once dailyoxybutynin 5 mg ER Tab See Instructions, TAKE 1 TABLET BY MOUTH DAILY, # 90 tab(s), Refills(s) 3, Pharmacy: [facility], 165, cm, 06/26/24 15:02:00 EDT, Height/Length [...] release oral tablet (20 sources)Proton Pump InhibitorStart: 84-20-0824vuyz 1 tablet by mouth in the morning, then take 1 tablet by mouth at bedtimepantoprazole (PROTONIX) 40 mg EC tablet Take 1 tablet (40 mg total) by mouth in the morning and 1 tablet (40 mg total) before bedtime. 11/24/2020 Activetake 1 tablet by mouth every twenty-four hoursPantoprazole Sodium 40 MG 1 tablet Orally Once a day ActiveProbiotic Digestive Aid Gummies (2 sources)Start: 86-88-3063Znmugxadv Digestive Aid Gummies See Instructions, Refill(s) 0, take 2 orally daily Start Date: 01/03/24 Status: Ordered Repeat number: 1Start: 88-88-6457Fgdiypqpi Digestive Aid Gummies See Instructions, Refill(s) 0, take 2 orally daily Start Date: 01/03/24 Status: OrderedPsyllium (11 sources)Start: 52-00-7090Himpgqysw See Instructions, Take 3 gummies orally daily, Refills(s) 0 Start Date: 01/03/24 Status: Ordered Repeat number: 1Start: 51-53-1373Ilavrlhyc See Instructions, Take 3 gummies orally daily, Refills(s) 0 Start Date: 01/03/24 Status: Orderedtake 2 capsules by mouth every eight hours Metamucil 0.52 GM 2 capsules with 8 ounces of liquid Orally Three times a day for 30 day(s) Not-Taking/PRNMetamucil 0.52 GM 2 capsules with 8 ounces of liquid Orally Three times a day for 30 day(s) Not-Takingsemaglutide (1 source)Start: 77-59-9745xrqikthnijc Refills(s) 0 Start Date: 03/28/25 Status: Ordered Repeat number: 1vitamin b12 0.1 mg oral tablet (2 sources)Vitamin N31Lvmim: 59-00-3534bjvo 1 tablet by mouth once daily cyanocobalamin 100 mcg oral tablet 100 mcg = 1 tab(s), Oral, Daily, # 90 tab(s), Refills(s) 3, Pharmacy: [facility], 167.6, cm, 02/02/23 13:51:00 EDT, Height/Length Dosing, 111.4, kg,02/02/23 13:51:00 EDT, Weight Dosing Start Date: 02/02/23 Status: NtwbyrhH71 Fast Dissolve 5000 MCG as directed Orally Active Completed/Discontinued Medications MedicationDrug Class(es)DatesSig (Normalized)Sig (Original)acetaminophen 325 mg / oxyCODONE hydrochloride 5 mg oral tablet (14 sources)Opioid AgonistStart: 42-52-9369oofm 1-2 tablets by mouth every four to [...] mg oral tablet (5 sources)gamma-Aminobutyric Acid-ergic AgonistStart: 23-55-9200hfuu 1 tablet by mouth three times daily [...] (6 sources)Abdominal tenderness; Translations: [Flank pain]Onset: 09-20-2024 90-70-9748VkwfpoggOpwpvuba of urinary tract (2 sources)Kidney kzfqa79-28-2696SanoxtwvNnclphgc (4 sources)Nuclear sclerotic cataract; Translations: [Age-related nuclear cataract, bilateral]Onset: 601562-15-2209ZmcnmagXetealce mellitus with complications (5 sources)Type 2 diabetes mellitus with unspecified complications; Translations: [Type 2 diabetes mellitus inobese]Onset: 914831-78-9790 ChronicComment on above:linked DM with peripheral neuropathy per OP CDI policy. Diabetes mellitus without complication (6 sources)Type 2 diabetes mellitus without complications; Translations: [Type 2 diabetes mellitus without complication]Onset: hronic Disorders of lipid metabolism (1 source)Pure hypercholesterolemia, unspecified; Translations: [PURE HYPERCHOLESTEROLEMIA UNSPEC]Onset: 86-08-1794AasdoblIrufmtwjhwkajr and diverticulitis (2 sources)Diverticular tuxmhhu16-99-8097YktvaeyD Codes: Natural/environment (1 source)Other and unspecified overexertion or strenuous movements or postures, initial encounter; Translations: [OTH AND UNS OVREXRT/STRN MVMT/POS INT]Onset: 09-29-2973PgvxjqmqQzlejtsjn hypertension (5 sources)Essential (primary) hypertension; Translations: [Hypertensive disorder]Onset: 487911-21-1346RqitcicDfwhstaojkfqh symptoms and ill- defined conditions (4 sources)Post-micturition incontinence ; Translations: [Urge incontinence of urine]67-93-1422RaogtyzYzzcbicjjitsy symptoms and ill-defined conditions (10 sources)Herman hematuria; Translations: [Incomplete emptying of bladder] 00-40-5856DlveykdyDomi and other crystal arthropathies (2 sources)Vcoq86-29-6648HqcefpoZmndtazsx (2 sources)Nonalcoholic xkkiwlqhmlvvlol66-16-8313KrklhamFaxqgvnngk disorders (1 source)Unspecified menopausal and perimenopausal disorder; Translations: [UNS MENOPAUSAL PERIMENOPAUSAL D/O]Onset: 56-70-4074EbyshbmCtcbamsufmyoh gastroenteritis (2 sources)Chronic ncwuqrxk84-78-1528AipfeyfsDpgtelwuaawbeo (9 sources)Osteoarthritis of hip; Translations: [Unilateral primary osteoarthritis, left hip]ChronicOther aftercare (1 source)half-way (current) use of oral hypoglycemic drugs; Translations: [RETAIL SALES SPECIALIST USE ORAL HYPOGLYCEMIC DX]Onset: 45-02-2117ToynbwskOljmb aftercare (1 source)Other termite inspector (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; Translations: [OTH RETAIL SALES SPECIALIST CURRENT DRUG THERAPY]Onset: 89-18-8128JubdbdgnFcphh circulatory disease (2 sources)Elevated blood-pressure reading, without diagnosis of hypertension; Translations: [Elevated blood-pressure reading, without diagnosis of hypertension]Onset: 96-53-3159AyuytnqaRwyqh connective tissue disease (9 sources)History of repair [...] diseases of bladder and urethra (2 sources)Urethral gigjmwkwf21-76-3258IomgdtgeLpvpc ear and sense organ disorders (2 sources)Sensorineural hearing loss, bilateral; Translations: [Sensorineural hearing loss, bilateral]08-36-7496NeytyisTrgrf ear and sense organ disorders (2 sources)Bilateral tinnitus; Translations: [Tinnitus, bilateral]01-30-2025 EpisodicOther ear and sense organ disorders (2 sources)Impacted cerumen of bilateral ears; Translations: [Impacted cerumen, bilateral]05-67-3157EnrqbvdwQtneb gastrointestinal disorders (1 source)Irritable bowel syndrome without diarrhea; Translations: [IRRITABLE BOWEL SYND W/O DIARRHEA]Onset: 39-12-0042YnrzrelAyizg injuries and conditions due to external causes (1 source)Unspecified injury of left Achilles tendon, initial encounter; Translations: [UNS INJ LT ACHILLES TENDON INITIAL]Onset: 58-55-5845FccsoolwOehun liver diseases (1 source)Fatty (change of) liver, not elsewhere classified; Translations: [FATTY CHANGE LIVER NEC]Onset: 46-83-1500ItedlajRyrck liver diseases (1 source)Unspecified cirrhosis of liver; Translations: [UNSPECIFIED CIRRHOSIS OF LIVER]Onset: 46-21-7210DrwliyySdayu nervous system disorders (3 sources)Neuropathy; Translations: [Polyneuropathy, unspecified]ChronicOther nervous system disorders (3 sources)Polyneuropathy, unspecifiedChronicOther nervous system disorders (2 sources)Peripheral nerve rkvanwx68-03-4625BubwqzwVxvmh non-traumatic joint disorders (4 sources)Pain in left ankle and joints of left foot; Translations: [PAIN IN LEFT ANKLE]Onset: 94-82-9330PiqfjbwkQcivz nutritional; endocrine; and metabolic disorders (1 source)Metabolic syndrome; Translations: [METABOLIC SYNDROME]Onset: 55-71-3618WhkfeclIcgpj nutritional; endocrine; and metabolic disorders (4 sources)Body mass index 30+ - frcbevz38-23-3130QhlcxztRgspi nutritional; endocrine; and metabolic disorders (2 sources)Morbid bxxtgai78-75-4830GjxwuimYtdqdpeqfk and visceral atherosclerosis (2 sources)Atherosclerosis of mcyhr77-19-6725KdgzwmlHmravxj on above:added per 10/03/2023 query response.Residual codes; unclassified (1 source)Obstructive sleep apnea (adult) (pediatric); Translations: [OBSTRUCTIVE SLEEP APNEA]Onset: 05-09-6243DtspmvlGyaydpcy codes; unclassified (2 sources)Obstructive sleep apnea zcbhubkc08-75-5748QmjcscwAauhnysh codes; unclassified (1 source)Acquired absence of other specified parts of digestive tract; Translations: [ACQ ABSENCE OTH PART DIGESTV TRACT]Onset: 57-36-9222Hjfnazoz Residual codes; unclassified (2 sources)FH: Aortic exxxitrn54-57-5044VuyzejmgKgpvrqf detachments; defects; vascular occlusion; and retinopathy (8 sources)Epiretinal membrane of right eye; Translations: [Puckering of macula, right eye]Onset: 490247-33-2225OxnesnnZxoqcgpgqf arthritis and related disease (4 sources)Inflammatory polyarthropathy; Translations: [INFLAMMATORY POLYARTHROPATHY]Onset: 87-72-4452FpsrqeyBefhnfyoevk; intervertebral disc disorders; other back problems (2 sources)Yksarvjj53-72-8165NupnvlvyScwcddo and strains (12 sources)Strain of right Achilles tendon, initial encounter; Translations: [Strain of left Achilles tendon, subsequent encounter]Onset: 43-66-0723Qgvrluih Unclassified (2 sources)Drug therapy snrfnia29-96-7959Evvdqkqaxbin (2 sources)Finding of sensation of gvjuknw86-92-9927Vylclhlwflyi (2 sources)Patient encounter anptdn70-63-0474Lrohpqgncfuu (1 source)Diabetic Eye ExamOnset: 15-31-6717Pvmzamfugpdh (1 source)Wjx-hnxqxu76-05ctssws66-04-0877Snvhzfgxwctq (1 source)Right epiretinal membraneOnset: 04-10-2025 Past or Other Problems Problem ClassificationProblemDateDocumented DateEpisodic/ChronicNonmalignant breast conditions (1 source)Unspecified lump in the left breast, upper inner quadrant; Translations: [UNS LUMP IN LT BREAST UPRINR QUAD]Onset: 85-97-4932QyzuzlecTxsyk screening for suspected conditions (not mental disorders or infectious disease) (9 sources)Other abnormal and inconclusive findings on diagnostic imaging of breast; Translations: [Encounter for screening mammogram for malignant neoplasm of breast]Onset: 93-91-1484Skithexk Results Test NameValueInterpretationReference RangeFacilityFloating Hospital For Children Medicine Office/Clinic Noteon 46-06-0841Uoduzd Medicine Office/Clinic NoteFacorrigan mental health center Medicine Office/Clinic Note HPI Staff Pt is [...] 120's. will continue semaglutide 1.8order faxed to [facility]. will take one metformin daily. will recheck HGBA1C in 3 months. 2. Right hip pain (M25.551: Pain in right hip) right hip pain worsening. xray ordered. pt would like referral to pain management for injections tohelp with pain. prefers [facility]. Ordered: MA Mamm Screen w/CAD [...] lunch, # 360 EA, Refills(s) 0, Pharmacy: [facility], 165, cm, 10/02/24 11:39:00 EST, Height/Length Dosing, 97, kg, 10/02/24 11:3... gabapentin, 300 mg = 1 cap(s), Oral, Bedtime, # 90 cap(s), Refills(s) 1, Pharmacy: [facility], 165, cm, 06/27/25 14:48:00 EDT, Height/Length Dosing, 85.7, kg, 06/27/25 14:48:00 EDT, Weight Dosing metformin, 1,000 mg = 2 tab(s), Oral, BID, # 360 tab(s), Refills(s) 1, Pharmacy: [facility], 165, cm, 10/02/24 11:39:00 EST, Height/Length [...] 5 mg ER T (more content not included)...[facility] HospitalComment on above:Result Comment: Electronically Signed By: Mary Trotter\.br\Date and Time Signed: 06/27/25 16:04 EDTNo Panel Informationon 10-13-7605VnvLltaqnUNC Health 85-25-1119RzclhmlqpPawbyaoeq From: Mary Trotter To: [facility] - Clinical; Sent: 04/01/2025 17:40:07 EDT Show up: 04/01/2025 17:40:00 EDT Subject: Ambulatory Reminder Due Date/Time: 04/02/2025 17:39:00 EDT HGBA1C is 5.6 this is great. Results: Date Result Name Value Ref Range 03/28/2025 15:23 Hgb A1C % 5.6 % ( - <=5.9) Left detailed message on pt's VM. (identified herself) Pt is to call with any questions.[facility] HospitalCHEMISTRYOrdered By: Nicolle Rhodes on 32-44-0675AeU0w (Bld) [Mass fraction]5.6 %Normal<=5.9%[facility] ChemAutoSSFacorrigan mental health center Medicine Office/Clinic Noteon 25-63-2693Hpepju Medicine Office/Clinic NoteFloating Hospital For Children Medicine Office/Clinic Note HPI Staff Patient is [...] tab(s), Oral, Daily, 180 tab(s), Refill(s) 3, [facility], 165, cm, 10/02/24 11:39:00 EST, Height/Length Dosing, 97, kg, 10/02/24 11:39:00 EST, WeightDosing metformin, 1,000 mg = 2 tab(s), Oral, BID, # 360 tab(s), Refills(s) 1, Pharmacy: [facility], 165, cm, 10/02/24 11:39:00 EST, Height/Length [...] in lifetime) Tobacco (more content not included)...Normal [facility] HospitalComment on above:Result Comment: Electronically Signed By: Mary Trotter\katina\Date and Time Signed: 03/28/25 15:43 PRSBzlV9v on 40-82-8856ZvO7w (Bld) [Mass fraction]5.6 %Normal<=5.9[facility] HospitalComment on above:Performed By: #### [id number] #### [facility] [address] [place], [place] [address]Sj Panel Informationon 62-98-8167WzkHfsdbmFulton County Medical CenterFacorrigan mental health center Medicine Office/Clinic Noteon 75-96-5076Gfesni Medicine Office/Clinic NoteFamily Medicine Office/Clinic Note Chief Complaint 3m follow [...] the use of Ozempic and medications from [facility]. She has successfully reduced her A1c to [...] after lunch, # 360 cap(s),Refills(s) 0, Pharmacy: [facility], 165, cm, 10/02/24 11:39:00 EST, Height/Length Dosing, 97, kg, 10/02/24 11:39:00 EST, Weight Dosing hydrochlorot (more content not included)...[facility] Comment on above:Result Comment: Electronically Signed By: Audie BIGGS, Rimma Castillobr\Date and Time Signed: 10/02/24 12:22 ESTCHEMISTRYOrdered By: SYSTEM SYSTEM on 66-06-0107Ieigpyt [Mass/Vol]4.3 g/dLNormal3.3 - 5.0 gm/dLRemisol Chem Albumin DL <= 20 mg/L (U) [Mass/Vol]8.8 mg/dLHigh0.0 - 1.9 mg/dLRemisol Chem Albumin/Creatinine DL <= 20 mg/L (U) [Mass ratio]50.9 mg/gm CrHigh0.0 - 30.0 mg/gm CrRemisol ChemComment on above:Interpretive Data: 30-300 mg/g Cr indicates an increased risk for diabetic nephropathy. >300 mg/g Cr is consistent with clinical nephropathy.Albumin/Globulin [Mass ratio]1.4 {ratio}Normal1.1 - 2.2Remisol ChemALP [Catalytic activity/Vol]35 [iU]/jAldttc09 - 98 Int._Unit/LRemisol ChemALT No additional P-5'-P [Catalytic activity/Vol]16 [iU]/dNormal6 - 46 Int._Unit/LRemisol ChemAnion gap [Moles/Vol] 14 mmol/LNormal6 - 16 mEq/LRemisol ChemAST [Catalytic activity/Vol]18 [iU]/d Normal5 - 43 Int._Unit/LRemisol ChemBilirubin [Mass/Vol]0.6 mg/dLNormal0.0 - 1.1 mg/dLRemisol ChemCalcium [Mass/Vol]9.0 mg/dLNormal8.9 - 11.1 mg/dLRemisol Chem Chloride [Moles/Vol]100 mmol/TWvb772 - 111 mmol/LRemisol ChemCholesterol [Mass/Vol]183 mg/pGVzvcdz920 - 200 mg/dLRemisol ChemCholesterol in HDL [Mass/Vol]44 mg/dLInvalid Interpretation CodeRemisol ChemComment on above:Result Comment: '>= 60 LOW RISK' '<= 40 HIGH RISK'Cholesterol in LDL [Mass/Vol]96 mg/dLNormal<=129mg/dLRemisol ChemCholesterol in VLDL [Mass/Vol]62 mg/dLHigh7 - 40 mg/dLRemisol ChemCO2 [Moles/Vol]26 mmol/JPqjoky39 - 31 mmol/LRemisol ChemCreatinine [Mass/Vol]1.0 mg/dLNormal0.5 - 1.3 mg/dLRemisol VoaitVZG89 mL/min/1.73 r7Lkcrqh>=59mL/min/1.73 c9Zstjpgo ChemGlobulin (S) [Mass/Vol]3.1 g/dLNormal1.4 - 4.0 gm/dLRemisol Chem Glucose [Mass/Vol]110 mg/uGJhewgt99 - 199 mg/dLRemisol ChemPotassium [Moles/Vol] 4.2 mmol/LNormal3.5 - 5.3 mmol/LRemisol ChemProtein [Mass/Vol]7.4 g/dLNormal6.0 - 7.8 gm/dLRemisol ChemSodium [Moles/Vol]136 mmol/NIfophe655 - 145 mmol/LRemisol ChemTriglyceride [Mass/Vol]309 mg/dLHigh<=149mg/dLRemisol ChemU Iddeqtrzct101.8 mg/dLInvalid Interpretation CodeRemisol ChemUrea nitrogen [Mass/Vol]16 mg/dL Normal5 - 21 mg/dLRemisol ChemUrea nitrogen/Creatinine [Mass ratio]16 mg/mg Vqxhwf57 - 20Remisol ChemCHEMISTRYOrdered By: Ana Maria Chao on 09-28-2024 HbA1c (Bld) [Mass fraction]5.8 %Normal<=5.9%[facility] ChemAutoSSCMPon 09-28-2024 Albumin [Mass/Vol]4.3 g/dLNormal3.3-5.0[facility]-Hyde Memorial HospitalComment on above:Performed By: #### [id number] #### [facility] [address], [place] [address]Gbxvctz/Globulin (S) [Mass conc ratio]1.9Qasbnr7.1-2.2FUniversity Hospitals Ahuja Medical CenterComment on above:Performed By: #### [id number] #### [facility] [address], [place] [address]CWD [Catalytic activity/Vol]35 Int._Unit/ULyhvzr67-53KquuznTrihealth Mccullough-Hyde Memorial HospitalComment on above:Performed By: #### [id number] #### [facility] [address], [place] [address]CPG No additional P-5'-P [Catalytic activity/Vol]16 Int._Unit/L Normal6-46[facility]Hy[facility] Memorial HospitalComment on above:Performed By: #### [id number] #### [facility] [address], [place] [address]Lgile gap [Moles/Vol]14 mmol/LNormal6-16[facility] Memorial HospitalComment on above:Performed By: #### [id number] #### [facility] [address], [place] [address]FAY [Catalytic activity/Vol]18 Int._Unit/LNormal5-43[facility] Memorial HospitalComment on above:Performed By: #### [id number] #### [facility] [address], [place] [address]Uxbvsbckp [Mass/Vol]0.6 mg/dLNormal0.0-1.1FUniversity Hospitals Ahuja Medical CenterComment on above:Performed By: #### [id number] #### [facility] [address], [place] [address]Jlxakir [Mass/Vol]9.0 mg/dLNormal8.9-11.1FUniversity Hospitals Ahuja Medical CenterComment on above:Performed By: #### [id number] #### [facility] [address], [place] [address]Kgksdiqm [Moles/Vol]100 mmol/DRtu429-708Dsoylu [facility] Medical CenterComment on above:Performed By: #### [id number] #### [facility] [address], [place] [address]DW7 [Moles/Vol]26 mmol/FJbiubp04-95WdvnqsTrihealth Mccullough-Hyde Memorial Hospital Comment on above:Performed By: #### [id number] #### [facility] [address], [place] [address]Gjqzcervua [Mass/Vol]1.0 mg/dLNormal0.5-1.3FUniversity Hospitals Ahuja Medical CenterComment on above:Performed By: #### [id number] #### [facility] [address], [place] [address]Gntdofjc (S) [Mass/Vol]3.1 g/dLNormal1.4-4.0[facility]Hy[facility] Memorial HospitalComment on above:Performed By: #### [id number] #### [facility] [address], [place] [address]Wpopsqv [Mass/Vol]110 mg/pYPqjsbl11-541KsfctiTrihealth Mccullough-Hyde Memorial HospitalComment on above:Performed By: #### [id number] #### [facility] [address] [place] [address]Hymfykdhl [Moles/Vol]4.2 mmol/LNormal3.5-5.3FUniversity Hospitals Ahuja Medical CenterComment on above:Performed By: #### [id number] #### [facility] [address], [place] [address]Yayiwun [Mass/Vol]7.4 g/dLNormal6.0-7.8[facility]-Hyde Memorial HospitalComment on above:Performed By: #### [id number] #### [facility] [address], [place] [address]Npmlyr [Moles/Vol]136 mmol/ZEdaklx392-119CpvyzyTrihealth Mccullough-Hyde Memorial HospitalComment on above:Performed By: #### [id number] #### [facility] [address], [place] [address]Bzhb nitrogen [Mass/Vol]16 mg/dLNormal5-21[facility]Hy[facility] Memorial HospitalComment on above:Performed By: #### [id number] #### [facility] [address], [place] [address]Mgfp nitrogen/Creatinine [Mass ratio]16 No ZatjmBxlwwr23-21 [facility]Hy[facility] Memorial HospitalComment on above:Performed By: #### [id number] #### [facility] [address], [place] [address]NppB6rcp 19-86-0758YbD6t (Bld) [Mass fraction]5.8 %Normal<=5.9 [facility]Hy[facility] Memorial HospitalComment on above:Performed By: #### [id number] #### [facility] [address], [place] [address]Anzua Panelon 15-48-9510Dxyhzhymiry [Mass/Vol]183 mg/dLNormal 120-200[facility]Hyde Memorial HospitalComment on above:Performed By: #### [id number] #### [facility] [address], [place] [address]Hkrnkbljkkp in HDL [Mass/Vol]44 mg/dLInvalid Interpretation CodeTrihealth Mccullough-Hyde Memorial HospitalComment on above:Result Comment: '>= 60 LOW RISK' '<= 40 HIGH RISK'Performed By: #### [id number] #### [facility] [address], [place] [address]Nunidwylxnn in LDL [Mass/Vol]96 mg/dLNormal<=129[facility]Hy[facility] Memorial HospitalComment on above:Performed By: #### [id number] #### [facility] [address], [place] [address]Mvpjesztuig in VLDL [Mass/Vol]62 mg/dLHigh7-40[facility] Memorial HospitalComment on above:Performed By: #### [id number] #### [facility] [address], [place] [address]Fgtfmcqqgnwr [Mass/Vol]309 mg/dLHigh<=149[facility] Memorial HospitalComment on above:Performed By: #### [id number] #### [facility] [address], [place] [address]L MA/Cr Ratioon 53-30-9416Rircqud DL <= 20 mg/L (U) [Mass/Vol] 8.8 mg/dLHigh0.0-1.9[facility]Hy[facility] Memorial HospitalComment on above:Performed By: #### [id number] #### [facility] [address], [place] [address]Elsxfdi/Creatinine DL <= 20 mg/L (U) [Mass ratio]50.9 mg/gm Cr High.0-30.0[facility]-Hyde Memorial HospitalComment on above:Result Comment: 30-300 mg/g Cr indicates an increased risk for diabetic nephropathy. >300 mg/g Cr is consistent with clinical nephropathy.Performed By: #### [id number] #### [facility] [address], [place] [address]S Aujwdjcoce415.8 mg/dLInvalid Interpretation CodeTrihealth Mccullough-Hyde Memorial HospitalComment on above:Performed By: #### [id number] #### [facility] [address], [place] [address]zHCJfd 97-37-5333oYNH56 mL/min/1.73 n7Eyerkd>=59[facility]Hyde Memorial HospitalComment on above:Performed By: #### [id number] #### [facility] [address], [place] [address]MAMOD METABOLIC PANELon 55-79-4164Psycitq [Mass/Vol]9.8 mg/dL Normal8.4-10.2GPiedmont Eastside Medical CenterComment on above:Order Comment: [facility] has implemented the eGFR calculation approach that does not have a coefficient for race that conforms to the NKF-ASN Task Force Recommendations.Performed By: #### [id number] #### [facility] [address] [place], [place] [address] Ashlee Hull M.D. [id number] WITH AUTO DIFFERENTIALon 42-00-6403JNCI NRBC0.0 %[facility] TattnallComment on above:Performed By: #### [id number] #### [facility] [address] [address] Ashlee Hull M.D. [id number] NRBC ABS COUNT0.00 K/mcLNormal0.00-0.00[facility] Comment on above:Performed By: #### [id number] #### [facility] [address] [place] [address] Ashlee Hull M.D. [id number] ABSOLUTE COUNT0.03 K/mcLNormal0.00-0.30[facility] Comment on above:Performed By: #### [id number] #### [facility] [address] [place] [address] Ashlee Hull M.D. [id number]/100 WBC (Bld)0.4 %[facility] TattnallComment on above:Performed By: #### [id number] #### [facility] [address] [place] [address] Ashlee Hull M.D. [id number] (Bld) [#/Vol]0.06 10*3/uLNormal0.00-0.50[facility] FruitlandComment on above:Performed By: #### [id number] #### [facility] [address] [place] [address] Ashlee Hull M.D. [id number]/100 WBC (Bld)0.8 %[facility] TattnallComment on above:Performed By: #### [id number] #### [facility] [address] [place] [address] Ashlee Hull M.D. [id number] distribution width (RBC) [Ratio]12.5 %Brotpx96.6-14.8[facility] FruitlandComment on above:Performed By: #### [id number] #### [facility] [address] [place] [address] Ashlee Hull M.D. [id number] (Bld) [Volume fraction]38.3 %Efqniw77.0-46.0[facility] FruitlandComment on above:Performed By: #### [id number] #### [facility] [address] [place] [address] Ashleelaurel Hull M.D. [id number] (Bld) [Mass/Vol]12.9 g/lBRovfdg08.0-16.0[facility] FruitlandComment on above:Performed By: #### [id number] #### [facility] [address] [place] [address] Ashlee Hull M.D. [id number] ABSOLUTE0.02 K/mcLNormal0.00-0.30[facility] FruitlandComment on above:Performed By: #### [id number] #### [facility] [address] [place] [address] Ashlee Hull M.D. [id number] PERCENT0.30 %[facility] TattnallComment on above:Result Comment: The IG parameter is the percentage of metamyelocytes, myelocytes and promyelocytes.An immature granulocyte count (IG) of 1% or more suggests the possibility of infection, an IG countof 3% is very likely related to an infection.Performed By: #### [id number] #### [facility] [address] [place] [address] Ashlee Hull M.D. [id number] (Bld) [#/Vol]2.89 10*3/uLNormal0.90-4.00[facility] FruitlandComment on above:Performed By: #### [id number] #### [facility] [address] [place] [address] Ashlee Hull M.D. [id number]/100 WBC (Bld)39.3 %[facility] TattnallComment on above:Performed By: #### [id number] #### [facility] [address] [address] Ashlee Hull M.D. [id number] (RBC) [Entitic mass]30.9 moGbapzq11.0-34.0[facility] Comment on above:Performed By: #### [id number] #### [facility] [address] [address] Ashlee Hull M.D. [id number] (RBC) [Entitic vol]91.6 hWDjdfyl03.0-100.0[facility] Comment on above:Performed By: #### [id number] #### [facility] ([facility] [address] [place] [address] Ashlee Hull M.D. [id number] CORPUSCULAR HEMOGLOBIN CONC33.7 g/xYMsgnxz77.0-37.0[facility] FruitlandComment on above:Performed By: #### [id number] #### [facility] [address] [address] Ashlee Hull M.D. [id number] (Bld) [#/Vol]0.43 10*3/uLNormal0.30-0.90[facility] Comment on above:Performed By: #### [id number] #### [facility] [address] [place] [address] Ashlee Hull M.D. [id number]/100 WBC (Bld)5.8 %[facility] TattnallComment on above:Performed By: #### [id number] #### [facility] [address] [address] Ashlee Hull M.D. [id number] ABSOLUTE COUNT3.93 K/mcLNormal1.70-7.00[facility] FruitlandComment on above:Performed By: #### [id number] #### [facility] [address] [place] [address] Ashlee Hull M.D. [id number]/100 WBC (Bld)53.4 %NormalSt. Luke'S FruitlandComment on above:Performed By: #### [id number] #### [facility] [address] [place] [address] Ashlee Hull M.D. [id number] mean volume (Bld) [Entitic vol]8.7 fLLow9.4-12.4GPiedmont Eastside Medical CenterComment on above:Performed By: #### [id number] #### [facility] [address] [address] Ashlee Hull M.D. [id number] (Bld) [#/Vol]234 10*3/mLYrkztl526-288[facility] Comment on above:Performed By: #### [id number] #### [facility] [address] [address] Ashlee Hull M.D. [id number] (Bld) [#/Vol]4.18 10*6/uLNormal4.00-5.20[facility] Comment on above:Performed By: #### [id number] #### [facility] [address] [place] [address] Ashlee Hull M.D. [id number] (Bld) [#/Vol]7.36 10*3/uLNormal4.50-11.00[facility] Comment on above:Performed By: #### [id number] #### [facility] [address] [place] [address] Ashlee Hull M.D. [id number] 7on 42-15-0617Spase gap [Moles/Vol]22 mmol/NWpiz74-61WyaevSt. Luke'S FruitlandComment on above:Order Comment: [facility] has implemented the eGFR calculation approach that does not have a coefficient for race that conforms to the NKF-ASN Task Force Recommendations.Performed By: #### [id number] #### [facility] [address] [place] [address] Ashlee Hull M.D. [id number] By: #### [id number] #### [facility] [address] [place] [address] Ashlee Hull M.D. [id number] [Moles/Vol]95 mmol/PGsz65-771HiokmSt. Luke'S FruitlandComment on above:Order Comment: [facility] has implemented the eGFR calculation approach that does not have a coefficient for race that conforms to the NKF-ASN Task Force Recommendations.Performed By: #### [id number] #### [facility] [address] [place] [address] Ashlee Hull M.D. [id number] By: #### [id number] #### [facility] [address] [place] [address] Ashlee Hull M.D. [id number] [Mass/Vol]1.06 mg/dLNormal0.60-1.10[facility] Comment on above:Order Comment: [facility] has implemented the eGFR calculation approach that does not have a coefficient for race that conforms to the NKF-ASN Task Force Recommendations.Performed By: #### [id number] #### [facility] [address] [place] [address] Ashlee Hull M.D. [id number] By: #### [id number] #### [facility] [address] [place] [address] Ashlee Hull M.D. [id number] mL/min/1.73 m2Low>=60St. [facility] FruitlandComment on above:Order Comment: [facility] has implemented the eGFR calculation approach that does not have a coefficient for race that conforms to the NKF-ASN Task Force Recommendations.Result Comment: Estimated GFR was calculated using the 2020 CKD-EPI creatinine equation. Estimated GFR was calculated using the 2020 CKD-EPI creatinine equation. Performed By: #### [id number] #### [facility] ([facility] [address] [place] [address] sAhlee Hull M.D. [id number] Comment: Estimated GFR was calculated using the 2020 CKD-EPI creatinine equation.Performed By: #### [id number] #### [facility] [address] [place] [address] Ashlee Hull M.D. [id number] [Mass/Vol]107 mg/mWVwfo19-25Plzhv91 Gonzalez StreetComment on above:Order Comment: [facility] has implemented the eGFR calculation approach that does not have a coefficient for race that conforms to the NKF-ASN Task Force Recommendations.Performed By: #### [id number] #### [facility] [address] [place] [address] Ashlee Hull M.D. [id number] By: #### [id number] #### [facility] [address] [place] [address] Ashlee Hull M.D. [id number] (Bld) [Moles/Vol]23 mmol/RDpcxwd78-29Wmmfm99 Miller StreetComment on above:Order Comment: [facility] has implemented the eGFR calculation approach that does not have a coefficient for race that conforms to the NKF-ASN Task Force Recommendations.Performed By: #### [id number] #### [facility] [address] [place] [address] Ashlee Hull M.D. [id number] By: #### [id number] #### [facility] [address] [place] [address] Ashlee Hull M.D. [id number] [Moles/Vol]4.8 mmol/LNormal3.5-5.1GPiedmont Eastside Medical Center Comment on above:Order Comment: [facility] has implemented the eGFR calculation approach that does not have a coefficient for race that conforms to the NKF-ASN Task Force Recommendations.Performed By: #### [id number] #### [facility] ([facility] [address] [place] [address] Ashlee Hull M.D. [id number] By: #### [id number] #### [facility] ([facility]) [facility] [address] [place] [address] Ashlee Hull M.D. [id number] [Moles/Vol]135 mmol/CMrxmtj423-863AqzajSt. Luke'S FruitlandComment on above:Order Comment: [facility] has implemented the eGFR calculation approach that does not have a coefficient for race that conforms to the NKF-ASN Task Force Recommendations.Performed By: #### [id number] #### [facility] ([facility]) [facility] [address] [place] [address] Ashlee Hull M.D. [id number] By: #### [id number] #### [facility] ([facility]) LAB [address] [place] [address] Ashlee Hull M.D. [id number] nitrogen [Mass/Vol]21 mg/dLNormal8-25St. [facility] FruitlandComment on above:Order Comment: [facility] has implemented the eGFR calculation approach that does not have a coefficient for race that conforms to the NKF-ASN Task Force Recommendations.Performed By: #### [id number] #### [facility] ([facility]) [facility] [address] [place] [address] Ashlee Hull M.D. [id number] By: #### [id number] #### [facility] [address] [place] [address] Ashlee Hull M.D. [id number] nitrogen/Creatinine [Mass ratio]19.8 mg/pwRyfsog01.0-20.0[facility] FruitlandComment on above:Order Comment: [facility] has implemented the eGFR calculation approach that does not have a coefficient for race that conforms to the NKF-ASN Task Force Recommendations.Performed By: #### [id number] #### [facility] [address] [place], [place] [address] Ashlee Hull M.D. [id number] By: #### [id number] #### [facility] [address] [place], [place] [address] Ashlee Hull M.D. [id number] ABDOMEN PELVIS WITHOUT CONTRASTon 63-29-9846LA ABDOMEN PELVIS WITHOUT CONTRASTEXAMINATION: CT OF THE [...] post cholecystectomy and hysterectomy. MS/lab Workstation ID: [id number] Dictated by: MAGGY LUIS on TueSep 20, 2024 4:01:25 PM EST Transcribed by: BEATA AHN on TueSep 20, 2024 4:04:27 PM EST Finalized by: MAGGY LUIS on [place] Sep 23, 2024 6:46:42 PM [facility]daleComment on above:Order Comment: Injury/Trauma or Illness?:Illness/Other How long have you had these symptoms (acute/chronic)?:Acute Reason for exam?:LLQ abdominal pain this morning Type of Exam?:Initial Additional signs and symptoms?:noED Prov Noteon 47-00-6662[facility]EMERB[facility] PROVIDER NOTE [facility] Encounter Date: 09/20/24 History obtained [...] cholecystectomy and hysterectomy (more content not included)... [facility]allAmbulatory Visit Summaryon 12-32-1212Kcaafdcbzt Visit SummaryAmbulatory Visit Summary DAKSHA CORLEY :1950 [...] Appointments Tuesday 9:20 AM EST With: Where: [address] [address]- Tuesday 1:15 PM EST With: Rimma Kelly MD Where: [address] [address]- 2024 2:30 PM EDT With: Where: [address] [address]- You Need to Complete the Following Comprehensive [...] Unchanged Misc Prescription (BAYLEE (more content not included)...[facility] Medicine Office/Clinic Noteon 10-45-2973[facility] Medicine Office/Clinic NoteFacorrigan mental health center Medicine Office/Clinic Note Chief Complaint [...] Comments : wears corrective lens. Goes to [facility]. Albin Rachel Clements 06/26/2024 14:44 EDT Advance Directive FT Advance Directive : No Patient Wishes to Receive Further Information on Advance Directives : No Organ Donation Consent : No Albin Rachel Clements 06/26/2024 14:44 EDT Procedures / Surgeries [...] Minutes: 0 ; Comments: 03/20/2020 7:18 EDT - Paige RODRIGUEZ, Leigh Ann Asif left ; Last Reviewed [...] Updated: 06/26/2024 14:50:36 ED (more content not included)...[facility] Comment on above:Result Comment: Electronically Signed By: Rimma Kelly MD\.br\Date and Time Signed: 07/02/24 15:04 EDT\.br\Electronically Co-Signed By: Rachel Bolanos\.br\Date and Time Co-Signed: 06/26/24 16:50 EDTAmbulatory Visit Summaryon 95-63-8721Orrrldhhsc Visit SummaryAmbulatory Visit Summary DAKSHA CORLEY Nat :1950 Visit Date:06/26/2024 Ambulatory Visit Instructions [...] Appointments Tuesday 9:20 AM EST With: Where: [address] [address]- Tuesday 1:15 PM EST With: Rimma Kelly MD Where: [address] [address]- 2024 2:30 PM EDT With: Where: [address] [address]- Medications What How Much When [...] concerns Unchanged oxybutynin (oxybu (more content not included)...[facility] HospitalAmbulatory [facility] SummaryAmbulatory Visit Summary DAKSHA CORLEY [...] PM EST With: Rimma Kelly MD Where: [facility] Medicine [address] [address]- Medications What How Much When Why Instructions [...] female Peripheral neuropathy Pos (more content not included)...[facility] Medicine Office/Clinic Noteon 74-61-3740[facility] Medicine Office/Clinic NoteFacorrigan mental health center Medicine Office/Clinic Note Chief Complaint [...] medicare to cover it. Fax to # [phone] ([facility]) Needs refills of her her [...] have it rechecked as she enters day of her treatment cycle. Furthermore, the patient [...] in semaglutide dosing suggested. Ordered: A1c POC 28373 [facility] Internal Ambulatory Referral 2. HTN (hypertension) (I10: Essential (primary) hypertension) Management of essential hypertension was not a primary focus of today's discussion, but continued adherence to current treatment regimens is presumed. Ordered: A1c POC [address]4869 [facility] Internal Ambulatory Referral 3. Morbid (severe) obesity [...] enhance weight loss efficacy. Ordered: A1c POC [address]2370 [facility] Internal Ambulatory Referral 4. ELY (obstructive s (more content not included)...[facility] HospitalComment on above:Result Comment: Electronically Signed By: Rimma Kelly MD\.br\Date and Time Signed: 06/26/24 14:49 EDTAmbulatory Visit Summaryon 97-75-2731Bmnfkkfoii Visit SummaryAmbulatory Visit Summary DAKSHA CORLEY :1950 Visit Date:03/27/2024 Ambulatory Visit Instructions Your Diagnosis Type 2 diabetes mellitus with morbid obesity HTN (hypertension) BMI 39.0-39.9,adult Class 1 obesity due to excess calories in adult Nonsmoker Peripheral neuropathy Your Care Team Attending Physician - iRmma Kelly MD. Primary Care Physician - Rimma [...] Follow-Up Appointments Tuesday 1:00 PM EDT Where: [facility] Medicine Office/Clinic Noteon 01-17-6168Kkpmig Medicine Office/Clinic NoteFloating Hospital For [facility] Medicine Office/Clinic Note HPI Staff Daksha is [...] - No other issues Ordered: A1c POC 70781 Body Mass Index (BMI) documented 3008F Current [...] - Continue as before Ordered: A1c POC 31454 Body Mass Index (BMI) documented 3008F Current [...] - BMI education added Ordered: A1c POC 06187 Body Mass Index (BMI) documented 3008F Current [...] Diet and exercise advised Ordered: A1c POC 38870 Body Mass Index (BMI) documented 3008F Current [...] continue to not smoke Ordered: A1c POC 26580 Body Mass Index (BMI) documented 3008F Current [...] after lunch, # 360 cap(s),Refills(s) 0, Pharmacy: [facility], 165, cm, 03/27/24 10:13:00 EDT, Height/Length Dosing, 107.9, kg, 03/27/24 10:13:00 EDT, Weight Dosing semaglutide, 0.25 mg, SubCutaneous, qWeek, # 3 mL, Refills(s) 0, Pharmacy: [facility], 165, cm, 03/27/24 10:13:00 EDT, Height/Length Dosing, 107.9, kg, 03/27/24 10:13:00 EDT, Weight Dosing Follow-up No qualifying data available Patient Education BMI for Adults Problem List/Past Medical History Ongoing Advanced care planning/counseling discussion Anticoagulated Aortic atherosclerosis Back pain BMI 39.0-39.9,adult Chronic diarrhea Diverticular disease Family hx of aortic aneurysm Feeling of incomplete bladder emptying Frequency of (more content not included)...[facility] Comment on above:Result Comment: Electronically Signed By: Audie BIGGS, Rimma Moyer.br\Date and Time Signed: 03/27/24 10:59 EDTFamily Medicine Office/Clinic Noteon 13-23-8699Rkybch Medicine Office/Clinic NoteHPI Staff Daksha is a 72 year old female presenting for 3 month follow up dm, htn will need to document face to face for cpap machine replacement Rx written for c-pap machine w/ humidifier and rx must state motor life exceeded repair or replacement. Pressure setting 11 Fax to [facility] [phone] Do you have any of the following [...] EA, Oral, BID, 210 gram, Refill(s) 0, [facility], 165, cm, 01/03/24 10:13:00 EDT, Height/Length Dosing, 108.1, kg, 01/03/24 10:13:00 EDT, Weight Dosing 2. Type 2 diabetes mellitus with morbid obesity (E11.69: Type 2 diabetes mellitus with other specified complication) - Will recheck A1c today. Ordered: cholestyramine, 5 gram, 1 EA, Oral, BID, 210 gram, Refill(s) 0, [facility], cm, 01/03/24 10:13:00 EDT, Height/Length Dosing, 108.1, kg, 01/03/24 10:13:00 EDT, Weight Dosing 3. BMI 39.0-39.9,adult (Z68.39: Body mass index [BMI] 39.0-39.9, adult) - BMI education uploaded Ordered: cholestyramine, 5 gram, 1 EA, Oral, BID, 210 gram, Refill(s) 0, [facility], 165, cm, 01/03/24 10:13:00 EDT, Height/Length Dosing, 108.1, kg, 01/03/24 10:13:00 EDT, Weight Dosing 4. Class 1 obesity due to excess calories in adult (E66.09: Other obesity due to excess calories) - Diet and exercise advised Ordered: cholestyramine, 5 gram, 1 EA, Oral, BID, 210 gram, Refill(s) 0, [facility], 165, cm, 01/03/24 10:13:00 EDT, Height/Length Dosing, 108.1, kg, 01/03/24 10:13:00 EDT, Weight Dosing 5. Nonsmoker (Z78.9: Other specified health status) - Please continue to not smoke Ordered: cholestyramine, 5 gram, 1 EA, Oral, BID, 210 gram, Refill(s) 0, [facility], 165, cm, 01/03/24 10:13:00 EDT, Height/Length Dosing, 108.1, kg, 01/03/24 10:13:00 EDT, Weight Dosing 6. ELY (obstructive sleep apnea) (G47.33: Obstructive sleep apnea (adult) (pediatric)) - Will redo the CPAP Ordered: cholestyramine, 5 gram, 1 EA, Oral, BID, 210 gram, Refill(s) 0, [facility], 165, cm, 01/03/24 10:13:00 EDT, Height/Length Dosing, 108.1, kg, 01/03/24 10:13:00 EDT, Weight Dosing 7. Chronic diarrhea (K52.9: Noninfective gastroenteritis and colitis, unspecified) - Will try Cholestyramine given hx of gallbladder. - Maybe 2/2 partial colectomy. Ordered: cholestyramine, 5 gram, 1 EA, Oral, BID, 210 gram, Refill(s) 0, [facility], 165, cm, 01/03/24 10:13:00 EDT, Height/Length Dosing, 108.1, kg, 01/03/24 10:13:00 EDT, Weight Dosing 8. Family hx of aortic aneurysm (Z82.49: Family history of ischemic heart disease and other diseases of the circulatory system) U/S ordered. Ordered: US Aorta Orders: gabapentin, 300 mg = 1 cap(s), Oral, BID, # 180 cap(s), Refills(s) 0, Pharmacy: [facility], 165, cm, 01/03/24 10:13:00 EDT, Height/Length [...] urine stream Historical Abdomi (more content not included)...[facility] on above:Result Comment: Electronically Signed By: Audie BIGGS, Rimma Alfredo\.br\Date and Time Signed: 03/02/24 10:56 EDTRAD - Ultrasound Reporton 45-00-1859EZC - Ultrasound [id number]#1.00TIFFNoWadsworth-Rittman HospitalAmbulatory Visit Summaryon 74-46-2834Rcwbfwhjnt Visit Summary DAKSHA CORLEY :1950 Visit Date:01/03/2024 [...] AM EDT With: Rimma Kelly [facility] [place] [phone].br\ You Need to Complete the Following\.br\ US Aorta, 01/03/24, Routine, Order for future visit, Transport Mode: Ambulatory, Reason: Other (please specify), No, Family hx of aortic aneurysm, Family Hx. 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 [facility]\.br\ Unchanged gabapentin (gabapentin 300 mg Cap) 1 Capsules By Mouth 2 times a day Pickup at [facility]\.br\ Unchanged ascorbic acid (ascorbic acid 1000 [...] if questions or concerns \.br\ Pharmacy Information\.br\ [facility]: [address], [place] [id number] [phone]\.br\ Allergies\.br\ Dilaudid (Foggy mind)\.br\ Biaxin\.br\ CeleBREX\.br\ Nubain [...] for choosing us for your care.\.br\ \.br\[facility] - Clinical Noteon 02-48-1944[facility] - Clinical Note [id number]#1.00TIFToledo HospitalConsultation Noteon 27-89-3146Jtkfeixgidoa Note [id number]#1.00[facility] CenterXR FOOT LT MIN 3 VIEWSon 48-12-5532VW FOOT LT MIN 3 VIEWSXR FOOT LT [...] Electronically authenticated by: TARAS WILEY Date: 2022-11-21 01:25[facility] HospitalANA by IFAon 44-25-7569Oprjygyogsw Antibodies, IFANegative NormalThe Protestant HospitalComment on above:Result Comment: Negative <1:80 Borderline 1:80 Positive >1:80 ICAP nomenclature: AC-0 For more information about Hep-2 cell patterns use ANApatterns.org, the official website for the International Consensus on Antinuclear Antibody (MARQUEZ) Patterns (ICAP).Performed By: #### ANAIFA ####[facility] [address] [place], [place] [address]Dr. Marcella CortesANTISTREPTOLYSIN O AB (ASO)on 69-02-0018Ovjklorozhqvrniq O Ab104.5 IU/mLNormal0.0-200.0The Protestant HospitalComment on above:Performed By: #### ASOAB #### [facility] [address] [place] [address] Dr. Marcella CortesRHEUMATOID FACTORon 87-83-7941OC Latex Turbid.<10.0Normal<14.0The Protestant HospitalComment on above:Performed By: #### RF #### [facility] [address] [place] [address] Dr. Marcella CortesCBC AUTO DIFFon 95-78-4274JEHN #0.0 103/ulNormal0.0-0.1The Protestant HospitalComment on above:Performed By: #### CBC ####[facility] Al[address]fs[address] [place], [place] [address]Dr.Marcella CortesBasophils/100 WBC (Bld)0.5 %Normal0.2-2.0The Protestant HospitalComment on above:Performed By: #### CBC ####[facility] Rol[address] [place], [place] [address]Dr.Marcella ChangEO #0.1 103/ulNormal0.0-0.7The Protestant HospitalComment on above:Performed By: #### CBC ####[facility] [address] [place], [place] [address]DrDave ChangEosinophils/100 WBC (Bld)1.4 %Normal 0.9-7.0The Protestant HospitalComment on above:Performed By: #### CBC ####[facility] X[address] [place], [place] [address]DrDave Cortes Erythrocyte distribution width (RBC) [Ratio]12.6 %Sbvlkz95.0-15.0The Protestant HospitalComment on above:Performed By: #### CBC ####[facility] C[address] [place], [place] [address]Dr.Marcella CortesHematocrit (Bld) [Volume fraction]37.1 %Naclqy66.0-48.0The Protestant HospitalComment on above:Performed By: #### CBC ####[facility] [address] [place], [place] [address]Dr.Marcella SebastianHemoglobin (Bld) [Mass/Vol]12.4 g/dL Afemer98.0-16.0The Protestant HospitalComment on above:Performed By: #### CBC ####[facility] Fzmkbxinq[address] [place], [place] [address]Dr. Marcella CortesIG #0.03 10e3/ulNormal0.00-0.03The Protestant HospitalComment on above: Performed By: #### CBC ####[facility] St[address] [place], [place] [address]Dr.Marcella CortesIG %0.5 %Normal0.0-0.5The Protestant HospitalComment on above:Performed By: #### CBC ####[facility] G[address] [place], [place] [address]Dr.Marcella SebastianLYMPH #2.4 103/ulNormal1.2-3.8The Protestant HospitalComment on above:Performed By: #### CBC ####[facility] T[address]vonxwpof[address] [place], [place] [address]Dr. Marcella CortesLymphocytes/100 WBC (Bld)36.2 %Aoxklj57.5-60.0[facility] Comment on above:Performed By: #### CBC ####[facility] U[address] [place], [place] [address]Dr.Marcella CortesMANUAL DIFF REQNONormalThe Protestant HospitalComment on above:Performed By: #### CBC ####[facility] Qrgdsamkmu[address] [place], [place] [address]Dr.Marcella CortesAPI HEALTHCARE (RBC) [Entitic mass]30.3 bsOgsfmn48.7-34.0The [facility] HospitalComment on above: Performed By: #### CBC ####[facility] [address] [place] [address]Dr.Marcella CortesHC (RBC) [Mass/Vol]33.4 g/dLNormal 29.9-35.2The [facility] HospitalComment on above:Performed By: #### CBC ####[facility] [address] [place] [address]Dr. Marcella CortesV (RBC) [Entitic vol]90.7 nGKnsmry53.0-99.0[facility] Comment on above:Performed By: #### CBC ####[facility] Ubesu[address]ibw[address] [place], [place] [address]Dr.Marcella SebastianMONO #0.4 103/ulNormal0.3-0.8 The Protestant HospitalComment on above:Performed By: #### CBC ####[facility] Pyrthhktph[address] [place], [place] [address]Dr.Marcella Sebastian Monocytes/100 WBC (Bld)5.9 %Normal1.7-12.0The Protestant HospitalComment on above: Performed By: #### CBC ####[facility] Mllutuoyct[address] [place], [place] [address]Dr.Marcella CortesNEUT #3.7 103/ulNormal1.4-6.5The Protestant HospitalComment on above:Performed By: #### CBC ####[facility] Q[address]hkpfg[address] [place], [place] [address]Dr.Marcella CortesNeutrophils/100 WBC (Bld)55.5 %Vlfkoc07.0-75.0The [facility] HospitalComment on above:Performed By: #### CBC ####[facility] L[address]ze[address]oyxd[address] [place], [place] [address]Dr.Marcella SebastianPlatelet mean volume (Bld) [Entitic vol]8.7 fLCritically low 9.5-13.5The [facility] HospitalComment on above:Performed By: #### CBC ####[facility] [address] [place] [address]Dr. Marcella LbffiOLH463 103/nvUnxdcr966-025Wbc Protestant HospitalComment on above: Performed By: #### CBC ####[facility] [address] [place] [address]Dr.Marcella ChangRBC4.09 106/ulCritically low4.20-5.40The Protestant HospitalComment on above:Performed By: #### CBC ####[facility] [address] [place] [address]Dr.Marcella CortesWBC6.7 103/ul Normal4.0-11.0[facility] on above:Performed By: #### CBC ####[facility] [address] [place] [address]DrPastora CortesCRPon 52-04-4922FUQ5.7 mg/dLNormal<=1.0The [facility] HospitalComformerly [facility] on above:Performed By: #### CRP, URIC, LIPID, CMP #### [facility] [address] [address] [address] Marcella CortesGLYCOHEMOGLOBIN A1Con 66-98-3384JEH RECOMMENDATIONSEE BELOWNormal The [facility] HospitalComformerly [facility] on above:Result Comment: ADA RECOMMENDED LIMIT 4.0 - 6.0 ADA THERAPEUTIC TARGET < 7.0 ACTION SUGGESTED > 7.0Performed By: #### A1C ####[facility] [address] [place] [address]DrPastora CortesGlucose [Mass/Vol]186 mg/dLNormalThe Protestant HospitalComformerly [facility] on above:Performed By: #### A1C ####[facility] [address] [place] [address]DrDave CortesHbA1c (Bld) [Mass fraction]8.1 % Critically high4.5-6.2The [facility] HospitalComformerly [facility] on above:Performed By: #### A1C ####[facility] [address] [place] [address]Dr. Marcella AyalaID PROFILEon 75-56-0476HIHY-HDL RATIO NORMSKettering Health PrebleComment on above:Result Comment: 3.3 - 4.4 LOW RISK 4.4 - 7.1 AVERAGE RISK 7.1 - 11.0 MODERATE RISK >11.0 HIGH RISKPerformed By: #### CRP, URIC, LIPID, CMP #### [facility] [address] [address] [address] Marcella CortesCholesterol [Mass/Vol]187 mg/dLNormal<=200[facility] Comment on above:Performed By: #### CRP, URIC, LIPID, CMP #### [facility] [address] [place] [address] Dr. Marcella CortesCholesterol in HDL [Mass/Vol]44 mg/dNFkcxby90-93KvxDayton Children'S HospitalComment on above:Performed By: #### CRP, URIC, LIPID, CMP #### [facility] [address] [place] [address] Dr. Marcella CortesCholesterol in LDL [Mass/Vol]97.0 mg/dLOhioHealth O'Bleness HospitalComment on above:Performed By: #### CRP, URIC, LIPID, CMP #### [facility] [address] [place] [address] Dr. Marcella Raiesterblake.total/Cholesterol in HDL [Mass ratio]4.3 {ratio} NormalDayton Children'S HospitalComment on above:Performed By: #### CRP, URIC, LIPID, CMP #### [facility] [address] [place] [address] Dr. Marcella AppiahL NORMAL> or = 60 mg/dl - LOW CARDIOVASCULAR RISK <40 mg/dl - HIGH CARDIOVASCULAR RISKOhioHealth O'Bleness HospitalComment on above:Performed By: #### CRP, URIC, LIPID, CMP #### [facility] [address] [place] [address] Dr. Marcella CortesLDL CALC NORMALSEE [facility]aconess HospitalComment on above:Result Comment: <100 mg/dl OPTIMAL 100 - 129 mg/dl NEAR OR ABOVE OPTIMAL 130 - 159 mg/dl BORDERLINE HIGH 160 - 189 mg/dl HIGH >190 mg/dl VERY HIGH Performed By: #### CRP, URIC, LIPID, CMP #### [facility] [address] [address] [address] Marcella CortesTriglyceride [Mass/Vol]230 mg/dLCritically high<=150The [facility] Toledoment on above:Performed By: #### CRP, URIC, LIPID, CMP #### [facility] [address] [address] [address] Marcella CortesVLDL CALC46.0 mg/dLNormalThe Protestant HospitalComment on above: Performed By: #### CRP, URIC, LIPID, CMP #### [facility] [address] [place] [address] Dr. Marcella Serrano 14(COMP METB)on 83-68-2754Tjyeyfo [Mass/Vol]3.8 g/dLNormal 3.4-5.0The [facility] HospitalComment on above:Performed By: #### CRP, URIC, LIPID, CMP #### [facility] [address] [place] [address] Dr. Marcella CortesAlbumin/Globulin [Mass ratio]0.9 {ratio}NormalThe Protestant HospitalComment on above:Performed By: #### CRP, URIC, LIPID, CMP #### [facility] [address] [place] [address] Dr. Marcella Guadarrama [Catalytic activity/Vol]46 U/QMjhxni21-159Cdw Protestant HospitalComment on above:Performed By: #### CRP, URIC, LIPID, CMP #### [facility] [address] [place] [address] Dr. Marcella Ahn [Catalytic activity/Vol]29 U/LShbyfi95-81Sry [facility] Toledoment on above:Performed By: #### CRP, URIC, LIPID, CMP #### [facility] [address] [place] [address] Dr. Marcella Wade gap [Moles/Vol]16.2 mmol/LNormalThe [facility] Comment on above:Performed By: #### CRP, URIC, LIPID, CMP #### [facility] [address] [address] [address] Marcella CortesAST [Catalytic activity/Vol]20 U/FLvivuc01-06Vin Protestant HospitalComment on above:Performed By: #### CRP, URIC, LIPID, CMP #### [facility] [address] [address] [address] Marcella CortesBilirubin [Mass/Vol]0.4 mg/dLNormal0.2-1.0[facility] Comment on above:Performed By: #### CRP, URIC, LIPID, CMP #### [facility] [address] [place] [address] Dr. Marcella CortesCalcium [Mass/Vol]9.2 mg/dLNormal8.5-10.1[facility] Comment on above:Performed By: #### CRP, URIC, LIPID, CMP #### [facility] [address] [place] [address] Dr. Marcella CortesChloride [Moles/Vol]98 mmol/TWkmycq88-670Dxw [facility] Comment on above:Performed By: #### CRP, URIC, LIPID, CMP #### [facility] [address] [place] [address] Dr. Marcella CortesCO2 [Moles/Vol]26.1 mmol/HCrgckc39.0-32.0[facility] Comment on above:Performed By: #### CRP, URIC, LIPID, CMP #### [facility] [address] [place] [address] Dr. Marcella CortesCreatinine [Mass/Vol]0.84 mg/dLNormal0.55-1.02The [facility] HospitalComment on above:Performed By: #### CRP, URIC, LIPID, CMP #### [facility] [address] [place] [address] Dr. Marcella Garner-AF ISRAELI>60Normal>=60The [facility] HospitalComment on above:Performed By: #### CRP, URIC, LIPID, CMP #### [facility] [address] [place] [address] Dr. Yilan ChangEGFR-NON AF ISRAELI>60Normal>=60The [facility] HospitalComment on above:Performed By: #### CRP, URIC, LIPID, CMP #### [facility] [address] [address] [address] Marcella CortesGlobulin (S) [Mass/Vol]4.0 g/dLNormMartins Ferry HospitalComment on above:Performed By: #### CRP, URIC, LIPID, CMP #### [facility] [address] [address] [address] Marcella CortesGlucose [Mass/Vol]163 mg/dLCritically lxtq53-743Dss Protestant HospitalComment on above:Performed By: #### CRP, URIC, LIPID, CMP #### [facility] [address] [place] [address] Dr. Marcella CortesPotassium [Moles/Vol]4.3 mmol/LNormal3.5-5.1[facility] Comment on above:Performed By: #### CRP, URIC, LIPID, CMP #### [facility] [address] [place] [address] Dr. Marcella CortesProtein [Mass/Vol]7.8 g/dLNormal6.4-8.2[facility] Comment on above:Performed By: #### CRP, URIC, LIPID, CMP #### [facility] [address] [place] [address] Dr. Marcella CortesSodium [Moles/Vol]136 mmol/QCzqaar254-347Mhi [facility] Comment on above:Performed By: #### CRP, URIC, LIPID, CMP #### [facility] [address] [place] [address] Dr. Marcella CortesUrea nitrogen [Mass/Vol]15.0 mg/dLNormal7.0-18.0The [facility] HospitalComment on above:Performed By: #### CRP, URIC, LIPID, CMP #### [facility] [address] [place] [address] Dr. Marcella CortesUrea nitrogen/Creatinine [Mass ratio]17.9 mg/mgNoSt. Elizabeth HospitalComment on above:Performed By: #### CRP, URIC, LIPID, CMP #### [facility] [address] [place], [place] [address] Dr. Marcella CortesURIC ACID SERUMon 46-72-3895Bnfue [Mass/Vol]7.4 mg/dLCritically high2.6-6.0[facility]'S HospitalComment on above:Performed By: #### CRP, URIC, LIPID, CMP #### [facility] [address] [place], [place] [address] Dr. Marcella CortesCT CARDIAC SCORINGon 33-40-8976DI CARDIAC SCORINGAddendum Begins Patient Name: DAKSHA CORLEY [...] unspecified complications . COMPARISON: None. ACCESSION NUMBER(S): [id number] ORDERING CLINICIAN: TERRI ROJO TECHNIQUE: Using prospective [...] agarwal al. JACC 2015 (http://dx.doi.org/10.1016/j.j acc.2015.08.035) Reading Accounts Payable Analyst: Dr. Jewel Vincent, Date: 03/18/2022 10:08 am Electronically signed by: MACO LUNA MDDelaware County Memorial HospitalUS BREAST LEFT LIMITEDon 10-11-1517CF BREAST LEFT LIMITEDPatient: DAKSHA CORLEY Exam Date: 01/13/2022 : 1950 Gender:F Ordering : DR TERRI ROJO . Admission #: [id number] Family : Order #: [id number] CLICK HERE TO VIEW EXAM RADIOLOGY REPORT [...] by: Placido Forde M.D. on 01/13/2022 at 10:54[facility] HospitalMG MAMM SCREEN 3D CAMERON CADon 61-08-4947SL MAMM SCREEN 3D CAEMRON CADPatient: DAKSHA CORLEY Exam Date: 01/08/2022 : 1950 Gender:F Ordering : DR TERRI ROJO . Admission #: [id number] Family : Order #: [id number] CLICK HERE TO VIEW EXAM RADIOLOGY REPORT [...] Treatments None Family Cancers None LOCATION: [facility] BREAST COMPOSITION: Heterogeneously dense,which may obscure [...] by: Placido Forde M.D. on 01/08/2022 at 15:21[facility] HospitalXR DEXA BONE DENSITYon 59-76-1324BA DEXA BONE DENSITYEXAMINATION: XR DEXA BONE DENSITY, [...] Electronically authenticated by: PLACIDO FORDE Date: 2022-01-08 11:07[facility] Vital Signs Date TimeVital SignValuePerforming SryqeuiirRnfhgkfk46-09-9410 10:25-0400Body hhuxip435.6 cmSulma Weston MD Work Phone: [phone]-[facility] CenterDwvlrksdoa03-90-5571 10:25-0400Body mass index (BMI) [Ratio]33.41 kg/f5XtyhdtSulma Weston MD Work Phone: [phone]05-27-2025 10:25-0400Body hefbax91.89 kgSulma Weston MD Work Phone: [phone] CenterJzneqppxvw46-51-6544 10:25-0400Diastolic blood hgqwqipm29 mm[Hg]Sulma Weston MD Work Phone: [phone] CenterPnoczgnjfw41-16-8561 10:25-0400Heart rate88 /min Sulma Weston MD Work Phone: [facility] CenterGvvbumgtim84-94-0490 10:25-0400Systolic blood mm[Hg]Sulma Weston MD Work Phone: [phone] CenterGjfzgkqbqp86-03-9059 09:21-0400Body xmezks713.6 cmSulma Weston MD Work Phone: [phone] CenterJnbcmhfzan46-83-0500 09:21-0400Body mass index (BMI) [Ratio]33.41 kg/p0UumnafSulma Weston MD Work Phone: [facility] CenterJetzltoari81-16-0265 09:21-0400Body okpkvl91.89 kgSulma Weston MD Work Phone: [facility] CenterHhuchdpiyn01-52-7836 09:21-0400Diastolic blood sobpkvlw91 mm[Hg]Sulma Weston MD Work Phone: [facility] CenterWkauatbgqc64-60-8369 09:21-0400Heart rate96 /min Sulma Weston MD Work Phone: [facility] CenterCqrknnpiwq64-76-7327 09:21-0400Systolic blood kbprpenq111 mm[Hg]Sulma Weston MD Work Phone: [facility] CenterRvvdsgikrf73-48-1759 10:00-0500Body itmjfu942.64 cmJustin Lillian Other [employer] Other 12-11-2023 10:00-0500Body mass index (BMI) [Ratio] 37.12 kg/t4Euxhil Lillian Other [employer] Other 12-11-2023 10:00-0500Body etygfi964.33 kgJustin Lillian Other [employer] Other 08-28-2023 11:15-0400Body zbvbot923.64 cmJustin Lillian Other [employer] Other 08-28-2023 11:15-0400Body mass index (BMI) [Ratio] 37.12 kg/e5Amtxks Lillian Other [employer] Other 08-28-2023 11:15-0400Body fnlcyi840.33 kgJustin Lillian Other [employer] Other 07-05-2023 11:15-0400Body .64 cmJustin Lillian Other [employer] Other 07-05-2023 11:15-0400Body mass index (BMI) [Ratio] 37.12 kg/u8Drutjs Lillian Other [employer] Other 07-05-2023 11:15-0400Body jrwioj102.33 kgJustin Lillian Other [employer] Other 05-24-2023 11:15-0400Body akygtd399.64 cmJustin Lillian Other [employer] Other 03-15-2023 12:00-0400Body akjnjw231.64 cmJustin Lillian Other [employer] Other 03-15-2023 12:00-0400Body mass index (BMI) [Ratio] 37.12 kg/t3Qfubiq Lillian Other [employer] Other 03-15-2023 12:00-0400Body cnujov019.33 kgJustin Lillian Other [employer] Other 03-01-2023 11:30-0500Body .64 cmJustin Lillian Other [employer] Other 03-01-2023 11:30-0500Body mass index (BMI) [Ratio] 37.93 kg/l7Mntnya Lillian Other [employer] Other 03-01-2023 11:30-0500Body uraqmb606.6 kgJustin Lillian Other [employer] Other Encounters Encounter DateEncounter TypeCare ProviderFacilityStart: 14-21-4931vdwmrmxsxfKajb L SchwabFacility:[facility] [place]vueStart: 07-22-2025 End: 04-46-8462yebavesdwuFwqblikJacob Gonzalez MDFacility: [place] Start: 06-27-2025 End: 30-35-7045oydvaakebuPeinpe E. RossFacility:[facility] [place]: 04-10-2025 End: 62-91-1155Ljqjyt outpatient visit 25 minutesNancy Corrales MD Work Phone: [employer] [employer] Department of [facility] Medical CenterComment on above:Right epiretinal membrane (Primary Dx); Type 2 diabetes mellitus without complication, without long-term current use of insulin ([facility] Nuclear sclerotic cataract of both eyesStart: 04-10-2025 End: 99-40-9987hrzmqvatzzGxjn Ophth ImagingProMedica Retina, A Department of [facility] CenterComment on above:Right epiretinal membrane; Type 2 diabetes mellitus without complication, without long-term current use of insulin ([facility])Start: 03-28-2025 End: 26-11-9438Bzv Drop offMary L Tigist [facility] Start: 03-28-2025 End: 16-07-3874ekbwojnwdeFDF Mary L SchwabFacility:FT ueStart: 02-19-2025 End: 59-97-8847Xkpkyf flowsheetSulma Weston MD Work Phone: noms CI ENTStart: 02-19-2025 End: 82-82-5079Bnwetw flowsheetSulma Weston MD Work Phone: NOMS CI ENTStart: 02-19-2025 End: 41-12-7540Oandgy outpatient visit 15 minutesSulma Weston MD Work Phone: NOMS CI ENTComment on above:Sensorineural hearing loss (SNHL), bilateral (Primary Dx)Start: 02-19-2025 End: 27-53-9949ccbcanzhyaRUUJEZ H TIMMISNot AvailableStart: 01-30-2025 End: 50-13-0545Kvjndvirene Weston MD Work Phone: noms CI ENTStart: 01-30-2025 End: 20-74-8304Kgyxtcyesenia Weston MD Work Phone: noMS CI ENTStart: 01-30-2025 End: 12-09-7208zvarqgqamoBNWYMH Wayne Gruber AvailableStart: 01-30-2025 End: 77-91-1297Kgmhfa outpatient new 30 minutesSulma Weston MD Work Phone: noms CI ENTComment on above:Bilateral tinnitus (Primary Dx); Bilateral impacted cerumenStart: 10-25-2024 End: 85-62-8890Cmtftc outpatient new 45 minutesStenedelia Corrales MD Work Phone: [facility] Physicians RetinaComment on above:Right epiretinal membrane (Primary Dx); Nuclear sclerotic cataract of both eyes; Type 2 diabetes mellitus without complication, without long-term current use of insulin ([facility])Start: 10-25-2024 End: 85-95-7243Vznszmnnnqvhb ImagingPpww Ophth ImagingProMedica Physicians RetinaComment on above:Other specified retinal disordersStart: 10-02-2024 End: 93-77-8369ozqnswsbywYwsncm E. RossFacility:FT FM BellevueStart: 09-28-2024 End: 19-51-3372Pck Drop Melanie Kelly [facility] Start: 09-28-2024 End: 07-97-0103ulrrkbwwziNufsit E. RossFacility:FT FM BellevueStart: 09-20-2024 End: 95-21-6205Lkgqfzjtt department patient visitDAVID GEORGIANA RIVERSBonner General Hospital CenterStart: 06-26-2024 End: 12-08-0715bybagztorlDuuuqw E. RossFacility:FT BellevueStart: 03-27-2024 End: 92-58-1576mdxjyralplSipnnv E. RossFacility:FT BellevueStart: 01-03-2024 End: 21-25-5441jyuhqbixxnGhlygt E. RossFacility:[facility] BellevueStart: 09-05-2023 End: 71-15-8265lmaeptwbcaJwpbbc Lillian Other [employer] Other Start: 21-34-9168Fbclcw outpatient visit 15 minutes Atif KelxenaFPG [facility] OrthopedicsStart: 05-23-2023 End: 75-52-4784kfyppbjznvPsjeeg Lillian Other [employer] Other Start: 44-72-4947Iwqals outpatient visit 15 minutes Atif KelleyFPG [facility] OrthopedicsStart: 03-30-2023 End: 43-89-7178ghqsjbifhyDvmwpi Lillian Other [employer] Other Start: 19-35-8149Vqakna outpatient visit 15 minutes Atif KelleyFPG [facility] OrthopedicsStart: 02-16-2023 End: 08-46-7437fqgnyrbaimKytzek Lillian Other [employer] Other Start: 17-49-0481Ffhwfs outpatient visit 15 minutes Atif KelleyFPG [facility] OrthopedicsStart: 01-19-2023 End: 37-62-7603mynedsqtugGbhjuqlq [place] Other [employer] Other Start: 11-64-0914Lnctgo outpatient visit 15 minutes Ana Maria GlasgowFPG [facility] OrthopedicsStart: 51-71-2369ijohvehboaYT KIM E KNIGHT .Facility:S2Ppioy: 12-22-2022 End: 57-95-5226xelaqvxzimBfcojb Kelley Other [employer] Other Start: 96-11-4101Hyctbn outpatient visit 15 minutes Atifdarian Zelaya OrthopedicsStart: 07-97-7155Ujhbtktmn encounterJustin DionnaG [facility] OrthopedicsStart: 12-08-2022 End: 60-01-1708gvuwoklyckQubqbd Lillian Other [employer] Other Start: 75-34-8964Pildrk follow up visit related to original pxAtif Zelaya OrthopedicsStart: 11-24-2022 End: 27-92-0834tmqqidatxcZbnhyr Kelley Other [employer] Other Start: 83-07-9518Giwzdd outpatient new 30 minutes Atif Zia [facility] OrthopedicsStart: 11-21-2022 End: 83-52-6735iqrgfbmztcGF KIM E KNIGHT .Facility:A7Yxgqu: 09-07-2022 End: 68-45-5618cltbuwgagkDH KIM E KNIGHT .Facility:F7Ohfoy: 01-13-2022 End: 42-85-7770uowagqmpkkHP KIM E KNIGHT .Facility:S6Hjgnx: 01-08-2022 End: 72-65-9326ewseboycywJV KIM E KNIGHT .Facility:H1 Procedures DateProcedureProcedure DetailPerforming ClinicianStart: 01-88-2368Dwtwrucmyflv ophthalmic imaging Sandy Corrales MD Work Phone: Start: 60-81-7753Ycoasazc retinal eye examSsp Corrales MD Work Phone: Start: 10-25-2024 End: 14-86-8021Egboxgwxcrrq ophthalmic imaging Sandy Corrales MD Work Phone: Start: 15-56-2072Qelsbgja retinal eye examSsp Corrales MD Work Phone: Start: 72-68-1676Uvuxyzxboc and retrograde pyelography Rimma Kelly Comment on above:rightAbdominal hysterectomySalynette Kelly AppendectomySanatachael Audie ColonoscopyRimma Kelly Comment on above:2009 normalGallbladder structure (body structure)Rimma Kelly H/O: tubal ligationSalynette Kelly Partial resection of colonRimma Kelly Repair of hipSdione Kelly Comgazf on above:leftTonsillectomy and adenoidectomy Rimma Kelly Total knee replacementSdione Kelly Comment on above:rightleft Plan of Treatment DateCare ActivityDetailAuthorStart: 19-06-9061Xrnszdqn screeningDiabetic Ophthalmology ExamMercy Health Lor[facility] Hospital SystemStart: 40-06-1733Zgtqyen Screening Tobacco ScreeningMercy Health Lorain Hospital SystemStart: 41-18-6343Czmgvxvg screening Diabetic Ophthalmology ExamProMetrohealth [facility] SystemStart: 10-11-2025 End: 41-65-5488Ppwpvud encounter gzxttmbze12/16/2026 2:10 PM EST Office Visit [facility] Department of [facility] [address] [place] [phone] Nancy Corrales MD [address] [place] [phone] [facility], A Department of [facility] Centertart: 72-11-2446MwxgfnicmHenrico Doctors' Hospital—Parham CampusStart: 04-10-2025 End: 05-64-1272Qvprhtc encounter hagzsmjxn26/16/2025 2:30 PM EDT Office Visit [facility] [address] [facility] [address] [place] [phone] Nancy Corrales MD [address] [facility] [address] [place] [address] [facility] RetinaStart: 02-19-2025 End: 73-15-6481Ilkudhq encounter procedureNOMS CI ENTComment on above:Arrived Start: 04-19-3097SSNWQ-19 Vaccine ( season)COVID-19 Vaccine ( season)[facility] SystemStart: 61-45-1522Yrlkyyttx vaccination Influenza VaccineProMetrohealth Parma Medical Center SystemStart: 24-86-7831Rnry Risk ScreeningFall Risk ScreeningProMetrohealth Par[facility] Center SystemStart: 14-00-3837Umllhcjbzpswhm of varicella zoster vaccineZoster (Shingles) Vaccine (1 of 2)[facility] SystemStart: 39-51-2539Yalqnibticsm Vaccine: 65+ Years (1 of 1 - PCV) Pneumococcal Vaccine: 65+ Years (1 of 1 - PCV)[facility] HealthcareStart: 1990 Screening for malignant neoplasm of breastMammogramNOMS HealthcareStart: 12-03-3448XTdZ,Tdap and Td Vaccines (1 - Tdap)DTaP,Tdap and Td Vaccines (1 - Tdap)[facility] SystemStart: 05-48-0545Ibmmo BMI ScreeningAdult BMI ScreeningProMetrohealth Parma Medical Center SystemStart: 90-54-4888Sutwcjii foot examination Diabetic Foot ExamProMetrohealth Par[facility] Medical Center SystemStart: 68-96-8606Palcaawaoo Screening Depression ScreeningMercy Health Lorain Hospital SystemStart: 58-84-6654Ppudqby Screening Tobacco ScreeningProMetrohealth Parma Medical Center SystemStart: 92-74-6397Xwljjraiw for malignant neoplasm of colonNOMS Healthcare Immunizations Immunization DateImmunizationNotesCare TvrdkjqjIhunuari56-78-8532TZAL-OaD-8 (COVID-19) mRNAMUL.ORD!m30586Qsefug Ross 376-8473Msljki-DumcxSt. Mary'S Medical Center 28-45-4239dikiypshk virus vaccine, unspecified formulationSdione Kelly 148-0030Bovsmh-CjgzhSt. Mary'S Medical Center 28-30-8146KECY-CoV-2 mRNA (wwfvcrxbdni-hjzw-hnvriyt) vaccineSdioen Kelly 036-2594Uctkms-SmqxgSt. Mary'S Medical Center 13-31-3726xowfmxfkf virus vaccine, unspecified formulationSdione Kelly 408-3171Wquiqm-HnnvkSt. Mary'S Medical Center 38-04-7534ZNZG-CoV-2 (COVID-19) mRNA BNT-162b2 vaSvetlana Kelly 868-6618Gircqi-IhtraSt. Mary'S Medical Center 23-21-1116ZMTS-CoV-2 (COVID-19) mRNA BNT-162b2 Edilma Kelly [phone]-HkysaSt. Mary'S Medical Center Comment on above:Result Comment: 2023-02-01: EWT8391-95-1445AMWR-MoO-1 (COVID- 19) mRNA BNT-162b2 Edilma Kelly 386-1764Oonglt-ZskkqSt. Mary'S Medical Center Comment on above:Result Comment: 2023-02-01: QHU32FUQHURH: Highlighted row has not occurred!23-92-5013mgskcxlde virus vaccine, unspecified formulationSdione Kelly [phone]-DzefySt. Mary'S Medical Center Payers DatePayer CategoryPayerPolicy [id number] Health [id number] Care Other (unspecified)[employer] Member Subscriber Plan / Payer (Effective 2019-Present) Name: Daksha Corley Relation to Subscriber: Self Name: Daksha Corley Payer ID: [id number] (NAIC) Group ID: [id number] Type: Not on file Address: [facility] [id number] [place] [id number] [id number] 1960Medicare [id number] 2.160.0.56133[id number] 2.160.8.16643[id number] 2.0.1.887827.3.5[id number] 2.16840.1.125360.3.57[id number] 2.16840.1.169598.3.57[id number] 2.16840.1.114195.3.57[id number] 2.16840.1.488877.3.57[id number] 2.16.840.1.320461.3.57[id number] 2.16840.1.543152.3.57[id number] 2.16840.1.580403.3.57[id number] 2.16840.1.105150.3.579.[id number] 2.16.840.1.804706.3.579.2.45456-56-4713Vylzfqj20280183 2.16.840.1.813768.3.57[id number] 2.16840.1.646357.3.57[id number] 2.16840.1.645345.3.579.2.6[id number] 2.16840.1.821577.3.579.2.5[id number] 2.16840.1.347554.3.579.2.75[id number] 2.16840.1.386751.3.579.2.53[id number] 2.16840.1.365186.3.579.2.489586-88-6755Kmqfbjm3453323 2.16840.1.761047.3.579.2.936007-28-6399Zclonxp2503918 2.16840.1.075916.3.579.2.179032-90-9454Upyzbwl861352344 2.16840.1.321745.3.579.2.3[id number] 2.16840.1.639422.3.57[id number] 2.16840.1.790946.3.579.2.64973-83-6104Yzkuxmn77627323 2.16840.1.805594.3.57[id number] 2..840.1.369808.3.579.2.25468-71-1964Savofci21268421 2..840.1.239428.3.579.2.13928-69-5874Rvjyvjd609702406 2..840.1.819479.3.579.2.196 Social History DateTypeDetailFacilityUnknown if ever smokedNort [place] Other Start: 11-06-2020 End: 05-38-6296Wct [facility] At [facility] Hospitaltart: 07-16-2020 End: 87-39-4854Vsrcknb smoking statusNever smoked tobacco (finding)[facility] BellevueComment on above:denies use.Tobacco smoking statusNeverMercy Health Allen Hospital BellueComment on above:denies use.Start: 07-16-2020 End: 34-91-4445Moyebdn use and exposureSmokeless tobacco non-userMercy Health Lorain Hospital SystemStart: 10-26-2024 End: 95-23-5325Kpjhagael beverage intakeEx-drinker (finding)[facility] Intelligence SystemStart: 11-06-2020 End: 91-98-2462Rrllggb of Social functionMercy Health Lorain Hospital SystemStart: 36-94-8653Dvh assigned at [facility] pinevilleNot on [facility] SystemStart: 05-01-2015 End: 37-40-9444SoiCjqjxe (finding)[facility] SystemTobacco smoking status NHISTobacco smoking consumption unknownNOMS HealthcareSexual OrientationGrant Hospital Medical Equipment Procedure CodeEquipment CodeEquipment Original TextEquipment IdentifierDatesMisc DME Prescription, See Instructions, 100 strip(s), 3, True metrix test strips Test once a day Dx E 11.9, [employer] [address], Supply, 167.6, cm, 02/02/23 13:51:00 EDT, Height/Length Dosing, 111.4, kg, 02/02/23 13:51:00 EDT, Weight DosingStart: 40-95-4159Uyld DME Prescription, See Instructions, 100 lancet(s), 3, Ultra thin unilet lancets use to test blood sugars once a day Dx E11.9, [employer] [address], Supply, 167.6, cm, 02/02/23 13:51:00 EDT, Height/Length Dosing, 111.4, kg, 02/02/23 13:51:00 EDT, Weight DosingStart: 98-92-2230JZFP STRIPS AND LANCETS, 1, SubCutaneous, Daily, 100 EA, 3, [employer] [facility], Supply, 167.6, cm, 02/02/23 13:51:00 EDT, Height/Length Dosing, 111.4, kg, 02/02/23 13:51:00 EDT, Weight DosingStart: 95-83-3926Bchz DME Prescription, See Instructions, 100 strip(s), 3, True metrix test strips Test once a day Dx E 11.9, [employer] [facility], Supply, 167.6, cm, 02/02/23 13:51:00 EDT, Height/Length Dosing, 111.4, kg, 02/02/23 13:51:00 EDT, Weight DosingStart: 19-17-8991Uoqo DME Prescription, See Instructions, 100 lancet(s), 3, Ultra thin unilet lancets use to test blood sugars once a day Dx E11.9, [employer] [facility], Supply, 167.6, cm, 02/02/23 13:51:00 EDT, Height/Length Dosing, 111.4, kg, 02/02/23 13:51:00 EDT, Weight DosingStart: 23-17-4436LRYP STRIPS AND LANCETS, 1, SubCutaneous, Daily, 100 EA, 3, [employer] [facility], Supply, 167.6, cm, 02/02/23 13:51:00 EDT, Height/Length Dosing, 111.4, kg, 02/02/23 13:51:00 EDT, Weight DosingStart: 05-23-2023 Clinical Notes 02-24-2019 to 04-13-2025 Note Date & NuscNyupMfuxbjyg36-62-9823 NoteRight Eye Quality was good. Progression has been stable. Findings include abnormal foveal contour, epiretinal membrane, foveal thickening. Follow up actions include continue present management. Left Eye Quality was good. Progression has been stable. Findings include normal foveal contour. Follow up actions include continue present management.MANUALLY TRANSCRIBED MZSSJZG60-93-0652 NoteRight Eye Quality was good. Progression has been stable. Findings include abnormal foveal contour, epiretinal membrane, foveal thickening. Follow up actions include continue present management. Left Eye Quality was good. Progression has been stable. Findings include normal foveal contour. Follow up actions include continue present management.MANUALLY TRANSCRIBED BUMOWVD56-09-4024 History of Present illness Narrative* Nancy Corrales [...] a past medical history of Diabetes mellitus ([facility]) and Hypertension. She has a past [...] complication, without long-term current use of insulin ([facility]) 3. Nuclear sclerotic cataract of both eyes ASSESSMENT/PLAN 1. Right epiretinal membrane (Primary) RIGHT EYE-stable -Criteria for surgical intervention discussed. -Continue observation -Monitor amsler grid -Testing done today reviewed with patient. - OCT, Retina - OU - Both Eyes; Future 2. Type 2 diabetes mellitus without complication, without long-term current use of insulin ([facility]) BOTH EYES- no ocular manifestation. -Last [...] MD by ЕЛЕНА Shane documented in this encounterVermont State HospitalF?rsat Bu F?rsat05-27-2025 History of Present illness Narrative* Sulma Weston [...] hearing loss (SNHL), bilateral documented in this encounterNevada Regional Medical CenterTbylpczkyp54-14-7015 History of Present illness Narrative* Sulma Weston MD - 01/30/2025 9:20 AM EDT Subjective Patient ID: Daksha Corley [...] debrided. F/U after audio documented in this encounterNevada Regional Medical CenterEkfaasvown21-98-2025 NoteRight Eye Quality was good. Progression has no prior data. Findings include abnormal foveal contour, epiretinal membrane, foveal thickening. Plan: observe & monitor, reviewed testing with the patient. Left Eye Quality was good. Progression has no prior data. Findings include normal foveal contour. Plan: observe & monitor, reviewed testing with the patient.MANUALLY TRANSCRIBED HGPUNRU14-95-0904 NoteRight Eye Quality was good. Progression has no prior data. Findings include abnormal foveal contour, epiretinal membrane, foveal thickening. Plan: observe & monitor, reviewed testing with the patient. Left Eye Quality was good. Progression has no prior data. Findings include normal foveal contour. Plan: observe & monitor, reviewed testing with the patient.MANUALLY TRANSCRIBED RUXMTBX95-40-4155 NoteRight Eye Progression has no prior data. [...] monitor, reviewed testing with the patient.MANUALLY TRANSCRIBED NJPTWIH38-42-8001 NoteRight Eye Progression has no prior data. [...] monitor, reviewed testing with the patient.MANUALLY TRANSCRIBED GSACDFL37-52-3486 History of Present illness Narrative* Nancy Corrales MD - 10/25/2024 2:20 PM EST Daksha Corley had concerns including Diabetic Eye Exam. 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 Patient states [...] a past medical history of Diabetes mellitus ([facility]) and Hypertension. She has a past surgical [...] complication, without long-term current use of insulin ([facility]) ASSESSMENT/PLAN 1. Right epiretinal membrane (Primary) RIGHT EYE -Criteria for surgical intervention discussed. Patient is asymptomatic without complaints. -Continue observation -Monitor amsler grid -Testing done today reviewed with patient. - [facility] - [place], [place] - Fundus Photos - OU - Both Eyes; Future - OCT, [facility] - OU - Both Eyes; Future 2. Nuclear sclerotic cataract of both eyes BOTH EYES -Nuclear sclerotic cataract noted on examination. -Continue observation. 3. Type 2 diabetes mellitus without complication, without long-term current use of insulin ([facility]) BOTH EYES- no ocular manifestation. -Last [...] Scribed for and in the presence of aNncy Corrales MD by ЕЛЕНА Shane I, Nancy Corrales MD personally performed the services described in the documentation, as scribed by Leelee CHRISTIANSEN in my presence, and it is both accurate and complete. documented in this encounterLouis Stokes Cleveland [facility] Medical Center10-01-2024 NotePatient Education Nutrition BMI for Adults Body [...] for Disease Control and Prevention: cdc.gov ? British Heart Association: heart.org ? National Heart, Lung, and Blood Garrett: nhlbi.nih.gov This information is not intended to replace advice given to you by your health care provider. Make sure you discuss any questions you have with your health care provider. Document Revised: 06/02/2023 Document Reviewed: 05/26/2023 ElseKids Quizine Patient Education ? 2023 DirectRM.[facility] 03-27-2024 NotePatient Education Nutrition BMI for Adults [...] numbers. This can be done either in Congolese (U.S.) or metric measurements. Note that charts and online BMI calculators are available to help you find your BMI quickly and easily without having to do these calculations yourself. To calculate your BMI in Congolese (U.S[place] measurements: 1. Measure your weight in [...] for Disease Control and Prevention: www.cdc.gov ? British Heart Association: www.heart.org ? National Heart, Lung, and Blood Garrett: www.nhlbi.nih.gov Summary ? Body mass index (BMI) is a number that is calculated from a person's weight and height. ? BMI may help estimate how much of a person's weight is composed of fat. BMI can help identify those who may be at higher risk for certain medical problems. ? BMI can be measured using Congolese measurements or metric measurements. ? BMI charts are used to identify whether you are underweight, normal weight, overweight, or obese. This information is not intended to replace advice given to you by your health care provider. Make sure you discuss any questions you have with your health care provider. Document Revised: 06/04/2020 Document Reviewed: 04/11/2020 OtherInbox Patient Education ? 2022 DirectRM.[facility] 09-05-2023 Evaluation note* Encounter Date Diagnosis Assessment [...] for refills if the medication is helping. [employer] Other 08-28-2023 Evaluation note* Encounter Date Diagnosis [...] (ICD-10 - M76.61) Apr,Neuropathy (ICD-10 - G62.9) [employer] Other 07-05-2023 Evaluation note* Encounter Date Diagnosis [...] (ICD-10 - M76.61) Mar,Neuropathy (ICD-10 - G62.9) [employer] Other 05-24-2023 Evaluation note* Encounter Date Diagnosis [...] as documented in the electronic medical record. [employer] Other 04-26-2023 Evaluation note* Encounter Date Diagnosis Assessment Notes Treatment Notes Treatment Clinical Notes Dec, Rupture of left Achi lles tendon, subsequent encounter (ICD-10 - S86.012D) Dec,Annette returns with left ankle Achilles tendon tear. [...] in the office today and providing supervision. [employer] Other 03-29-2023 Evaluation note* Encounter Date Diagnosis Assessment Notes Treatment Notes Treatment Clinical Notes Nov, Rupture of left Achi lles tendon, subsequent encounter (ICD-10 - S86.012D) Nov,OtherLinda returns with left ankle Achilles tendon tear. [...] exercise. We discussed starting to peel one layer out plate glass of the heel lift each week. Continue with use of boot at this time. Continue with use of walker as needed. A prescription for physical therapy was provided today. [employer] Other 03-15-2023 Evaluation note* Encounter Date Diagnosis Assessment Notes Treatment Notes Treatment Clinical Notes Nov, Rupture of left Achi lles tendon, subsequent encounter (ICD-10 - S86.012D) Nov,OtherLinda returns with left ankle Achilles tendon tear. [...] understanding and is agreeable to treatment plan. [employer] Other 03-01-2023 Evaluation note* Encounter Date Diagnosis [...] in office today. Prior medical notes from [facility] and history have been reviewed. At [...] as documented in the electronic medical record. [employer] Other 06-01-2019 History general Narrative - Reported* Type Description Date Medical History Borderline Type 2 Diabetes Medical HistoryHypertensionMedical Historykidney Stones 02/2019Surgical History Partial Bowel Dbylnag97 years agoSurgical HistoryTonsil & AdnoidsSurgical HngvtbaRhqjdnbzqhmb5479Ahspppps HistoryHysterectomy with Bladder Hterdyxhht1785 Surgical HistoryTubal LigationSurgical HistoryBilateral Knee Otjndinhpun1831 Surgical HistoryLTHAHospitalization HistoryPneumonia09/2017 [employer] Other Evaluation + Plan note Future Appointments Appointment Date:10/02/2024 11:30:00 AM Scheduled Provider:[facility] Appointment Date:06/27/2025 02:30:00 PM Scheduled Provider: [facility] Type: Medicare Wellness Subsequent Future Scheduled Tests Radiology* US Aorta 01/03/24 [facility] Evaluation + Plan note Future Appointments Appointment Date:06/27/2025 02:40:00 PM Scheduled Provider:Mary Trotter Location:[facility] Appointment Type: Open [facility] Evaluation noteNo [employer] Other Evaluation note* Diagnosis Right epiretinal membrane- Primary Macular puckering of retina Nuclear sclerotic cataract of both eyes Senile nuclear sclerosis Type 2 diabetes mellitus without complication, without long-term current use of insulin ([facility]) Other specified retinal disorders Other specified retinal disorders documented in this encounter [facility]* Diagnosis Other specified retinal disorders documented in this encounter [facility]Evaluation [facility]* Diagnosis Bilateral tinnitus- Primary Bilateral impacted cerumen Impacted cerumen documented in this encounter [facility] HealthcareEvaluation note* Diagnosis Sensorineural hearing loss (SNHL), bilateral- Primary [facility] note* Diagnosis Right epiretinal membrane- Primary Macular puckering of retina Type 2 diabetes mellitus without complication, without long-term current use of insulin ([facility]) Nuclear sclerotic cataract of both eyes Senile nuclear sclerosis Right epiretinal membrane Macular puckering of retina Type 2 diabetes mellitus without complication, without long-term current use of insulin ([facility]) documented in this encounter [facility]* Diagnosis Right epiretinal membrane Macular puckering of retina Type 2 diabetes mellitus without complication, without long-term current use of insulin ([facility]) documented in this encounter [facility] Narrative No data available for this section [facility] Discharge instructions No data available for this section [facility] Instructions* Attachments The following attachments cannot be sent through Care Everywhere. * Cataracts (Congolese) documented in this encounterProMedime Health SystemInstructionsNot on file documented in this encounterProL[facility] Health SystemInstructionsNot on file documented in this encounterProMediUniversity [facility] SystemInstructionsNot on file documented in this encounterProMet[facility] SystemProgress note No data available for this section [facility] Summary Purpose Family History No Family [...] section and content) DATE CREATED AUTHOR 03/20/2022 [facility] DATE CREATED AUTHOR AUTHOR'S ORGANIZ ATION 12/31/2022 [facility] DATE CREATED AUTHOR AUTHOR'S ORGANIZ ATION 10/05/2024 [facility] DATE CREATED AUTHOR AUTHOR'S ORGANIZ ATION 10/06/2024 [facility] DATE CREATED AUTHOR AUTHOR'S ORGANIZ ATION 10/16/2024 [facility] DATE CREATED AUTHOR AUTHOR'S ORGANIZ ATION 10/27/2024 [facility] DATE CREATED AUTHOR AUTHOR'S ORGANIZ ATION 02/22/2025 [facility] DATE CREATED AUTHOR AUTHOR'S ORGANIZ ATION 04/14/2025 [facility] DATE CREATED AUTHOR AUTHOR'S ORGANIZ ATION 07/01/2025 [facility] DATE CREATED AUTHOR AUTHOR'S ORGANIZ ATION 07/02/2025 [facility] DATE CREATED AUTHOR AUTHOR'S ORGANIZ ATION 07/26/2025 [facility] REASON FOR VISIT (unrecogniz ed section and content) ReasonCommentsDiabetic Eye ExamSpecialtyDiagnoses / ProceduresReferred By ContactReferred To ContactOphthalmology Diagnoses Normal retina on examination of eye Carlos Lobato, OD [address] [place] [address] Phone: tel: fax: Nancy Corrales MD [address] [facility] [address] [place] [address] Phone: tel: fax: Referral IDStatusReasonStart DateExpiration DateVisits RequestedVisits [id number] Specialty Services Required [id number] ImpactionReasonCommentsTinnitusFollow up audio Dr Bermudez 01/31/25ReasonCommentsRight epiretinal membrane Patient Care team informatio n (unrecognized section and content) Team MemberRelationshipSpecialtyStart DateEnd Date Rimma Kelly MD [address] [facility] [place] [address] PCP - GeneralFamily Medicine10/25/24Team MemberRelationshipSpecialtyStart DateEnd Date Rimma Kelly MD [address] [place] [address] PCP - GeneralFamily Medicine10/25/24Team MemberRelationshipSpecialtyStart DateEnd Date Rimma Kelly MD [address] [place] [address] PCP - GeneralFamily Medicine01/22/25Team MemberRelationshipSpecialtyStart DateEnd Date Rimma Kelly MD [address] [facility] [place] [address] PCP - GeneralFamily Medicine01/22/25Team MemberRelationshipSpecialtyStart DateEnd Date Rimma Kelly MD [address] [place] [address] PCP - GeneralFamily Medicine01/22/25Team MemberRelationshipSpecialtyStart DateEnd Date Rimma Kelly MD [address] [place] [id number] PCP - [facility]10/25/24Team MemberRelationshipSpecialtyStart DateEnd Date Rimma Kelly MD [address] [facility] [place] [address] PCP - [facility]10/25/24 FOR RECORDS PERTAINING TO PATIENTS WHO ARE [...] BE BASED ON THE PRIMARY CLINICAL RECORDS. [facility] [employer] [facility]. provides no warranty or guarantee of the accuracy or completeness of information in this document.
[2025-08-05 09:38] VITALS: BP 127/76; PULSE 89; TEMP 36.2; O2SAT 100
[2025-08-05 10:22] VITALS: BP 125/56; PULSE 84; O2SAT 96
[2025-08-05 10:23] VITALS: BP 124/60; PULSE 70; O2SAT 96
[2025-08-05] MEDS: LIDOCAINE HCL 2% 400 MG/20 ML MDV INJ (10:24)
[2025-08-05] MEDS: METHYLPREDNISOLONE ACETATE 40 MG/ML VIAL INJ (10:24)
[2025-08-05] MEDS: BUPIVACAINE HCL 0.25% PF 25 MG/10 ML VIAL 2 ML INJ (10:24)
[2025-08-05] MEDS: IOHEXOL 240 MG/ML - 10 ML VIAL INJ (10:24)
--- NOTE | 2025-08-05 10:25 | W.PM.PROCNOT ---
Date of procedure: 08/05/25 Pre-op diagnosis: Pain due to right hip osteoarthritis Post-op diagnosis: same as pre-op Procedure: Procedure: Right hip injection Medications: Bupivacaine 0.25% 4cc, depomedrol 40mg I explained the details of the procedure to the patient including the risks, benefits and alternatives. We had an informed discussion and the patient verbalized understanding and signed the consent form. All questions were answered appropriately.? A time out was performed.? After obtaining a comfortable supine position, the skin overlying the hip, subtrochanteric region, and joint space were prepped with alcohol. A sterile syringe containing the above medication was attached to a 25 guage, 3.5 inch spinal needle under strict aseptic technique. X ray was used to identify the joint space and the femoral neck on the right side.? The needle was than advanced through the subcutaneous tissue after local injection of 1% lidocaine.? The contents of the syringe were gently injected without any resistance into the joint space after contrast (isovue) outlined the appropriate area. The needle was removed and pressure was applied to the injection site to decrease the incidence of ecchymosis and hematoma formation.? A sterile bandage was applied. Post procedural instructions were given to the patient. Anesthesia: Local Surgeon: Diogenes Gonzalez Pathology: none sent Condition: stable Disposition: no change
== END 2025-08-05 10:28 | disposition home or self-care (01) ==
PROVIDERS: PCP Nurse Practitioner; Visit Provider Anesthesiology
DX: M16.11 Unilateral primary osteoarthritis, right hip (principal); E11.9 Type 2 diabetes mellitus without complications
CPT/HCPCS: 20610; 36415; 77002; 82948; J0665; J1010; Q9966

== ENCOUNTER 2025-08-14 13:38 | Outpatient (OUT) | payer MEDICARE, SELFPAY ==
--- OUTSIDE RECORDS SUMMARY | 2025-08-14 13:41 | XMS_ITS | Clinical Summary ---
Author Organization [facility] Address [address] [place] [address] Phone Care Team Providers Care Director Field Services Name Role Phone Shantel King MD Primary Care Provider [phone] Social History Tobacco UseTypesPacks/DayYears UsedDateSmoking Tobacco: Never Assessed CommentsUnknownSex and Gender InformationValueDate RecordedSex Assigned at Not on fileLegal [id number]/26/2022 11:29 AM ESTGender IdentityNot on file Sexual OrientationNot on file Plan of Treatment Not on file Care Teams Team MemberRelationshipSpecialtyStart DateEnd Date Shantel King MD [address] [place] [address] PCP - General03/17/22
--- OUTSIDE RECORDS SUMMARY | 2025-08-14 13:42 | XMS_ITS | CCD ---
Author Organization [facility] Care Team Providers Care Molded Frames Assembler Name Role Phone Atif Childs Unavailable ROJO [...] [place] Unavailable Rimma Kelly. Primary Care Physician Rimma Kelly Attending Unavailable [...] Unavailable Rimma Kelly MD Primary Care Provider [phone] SULMA WESTON Attending Unavailable SULMA WESTON Attending Unavailable Rimma Kelly MD Primary Care Provider [phone] NANCY CORRALES Attending Unavailable RIMMA KELLY E Referring Unavailable RIMMA KELLY E Primary Care Unavailable NANCY CORRALES Referring Unavailable RIMMA KELLY E Primary Care Unavailable Rimma Kelly E. Admitting Unavailable Rimma Kelly. Attending Unavailable Tigist, CDC ASSOCIATE Mary L Attending Unavailable Tigist, CDC ASSOCIATE Mary L Attending Unavailable Tigist, CDC ASSOCIATE Mary L Admitting Unavailable Tigist, CDC ASSOCIATE Mary L Attending Unavailable Tigist, Mary L Admitting Unavailable Tigist, Mary L Attending Unavailable Tigist, Mary L Attending Unavailable Carlos BIGGS, Diogenes Barreto Attending Unavailable Allergies Allergy ClassificationReported Allergen(s)Allergy TypeDate of OnsetReaction(s) Facility (15 sources)Nalbuphine; Translations: [Nubain]Drug AllergyClouded consciousness (finding)[facility] (9 sources)Sulfonamides (Antibiotic)Propensity to adverse reactionsUnknowMercy Hospital Washington Alloptic Other (1 source)bee venomDrug allergy (disorder)[facility] (4 sources)HYDROmorphone; Translations: [Dilaudid]Drug Xtlntqk92-08-4747[facility] (1 source)Sulfonamides (Antibiotic)Drug allergy (disorder)[facility] (8 sources)celecoxib; Translations: [celecoxib]Drug Vpxfltq10-69-3122[facility] (8 sources)Clarithromycin; Translations: [clarithromycin]Drug Vyleykb77-84-0924 [facility] (16 sources)HYDROmorphone; Translations: [hydromorphone]Drug Ekqtfqa31-36-5138 Clouded consciousness (finding), [facility]inessMer[facility] (19 sources)Nalbuphine; Translations: [nalbuphine]Drug Aqeddwb59-00-2381Umlektv (qualifier value), Clouded consciousness (finding)[facility] (8 sources)rofecoxib; Translations: [rofecoxib]Drug Agyhkfh00-15-0827[facility]pgynsK[facility] [place] (5 sources)sulfabenzamide / Sulfacetamide / sulfathiazole; Translations: [triple sulfa topical]Drug AllergyUnknown (qualifier value)[facility] (8 sources)Sulfonamides (Antibiotic); Translations: [SULFA (SULFONAMIDE ANTIBIOTICS)]Propensity to adverse reactions to drug (disorder)59-60-9250[facility] (6 sources)Sulfonamides (Antibiotic)Drug Ibyqvfckqzb15-56-1900[facility] Medications Current Medications MedicationDrug Class(es)DatesSig (Normalized)Sig (Original)0.25 MG, 0.5 MG Dose 3 ML semaglutide 0.68 MG/ML Pen Injector [Ozempic] (1 source)Start: 87-78-5442Qgentbo 2 mg/3 mL (0.25 mg or 0.5 mg dose) subcutaneous solution 0.25 mg, SubCutaneous, qWeek, # 3 mL, Refills(s) 0, Pharmacy: [facility], 165, cm, 03/27/24 10:13:00 EDT, Height/Length Dosing, 107.9, kg, 03/27/24 10:13:00 EDT, Weight Dosing Start Date: 03/27/24 Status: Orderedallopurinol 100 mg oral tablet (9 sources)Xanthine Oxidase Inhibitortake 1 tablet by mouth every twenty-four hoursAllopurinol 100 MG 1 tablet Orally Once a day Activeascorbic acid 1000 mg oral tablet (6 sources)Vitamin CStart: 60-79-2675rlbz 1 tablet by mouth once dailyascorbic acid 1000 mg oral tablet 1,000 mg = 1 tab(s), Oral, Daily, # 90 tab(s), Refills(s) 3, Pharmacy: [facility], 167.6, cm, 02/02/23 13:51:00 EDT, Height/Length Dosing, 111.4, kg,02/02/23 13:51:00 EDT, Weight Dosing Start Date: 02/02/23 Status: Orderedascorbic acid (VITAMIN C ORAL) Take by mouth. FjdorrK94 Fast Dissolve 5000 MCG (8 sources)B12 Fast Dissolve 5000 MCG as directed Orally ActiveBlood pressure cuff-wrist (2 sources)Start: 64-81-3970Ixacy pressure cuff-wrist Blood pressure cuff-wrist, See Instructions, 1 EA, 0, As Directed-Check blood pressure 1-2 hours after taking BP medication., [facility], Supply Start Date: 12/22/22 Status: Ordered Quantity: 1.0 Unit: EA Repeat number: 1Start: 63-39-0433Atlbm pressure cuff-wrist Blood pressure cuff-wrist, See Instructions, 1 EA, 0, As Directed-Check blood pressure 1-2 hours after taking BP medication., [facility], Supply Start Date: 12/22/22 Status: Orderedcelecoxib 100 mg oral capsule (3 sources)Nonsteroidal Anti-inflammatory DrugStart: 19-14-7771zdos 1 capsule by mouth every twelve hoursCeleBREX 100 MG 1 capsule with food Orally bid for 30 days Mar, ActiveCPAP (2 sources)Start: 84-85-5970SOEK CPAP, See Instructions, 1 EA, 0, c-pap machine w/ humidifier and rx must state motor life exceeded repair or replacement. Pressure setting , Supply Start Date: 01/04/24 Status: Ordered Quantity: 1.0 Unit: EA Repeat number: 1 Indications: Obstructive sleep apnea (adult) (pediatric);Start: 24-01-7519CKAD CPAP, See Instructions, 1 EA, 0, c-pap machine w/ humidifier and rx must state motor life exceeded repair or replacement. Pressure setting 11, Supply Start Date: 01/04/24 Status: Orderedcyanocobalamin, vitamin B-12, (VITAMIN B12 ORAL) (5 sources)cyanocobalamin, vitamin B-12, (VITAMIN B12 ORAL) Take by mouth. Activecyclobenzaprine hydrochloride 5 mg oral tablet (9 sources)Muscle RelaxantStart: 75-68-5297oftx 0.5-1 tablets by mouth every eight hoursCyclobenzaprine HCl 5 MG 1/2 to 1 tab Orally Every 8 hours for 14 days Nov, Activediclofenac sodium 0.01 mg/mg topical gel (4 sources)Nonsteroidal Anti-inflammatory DrugStart: 98-71-8676Hhhztghkiw Sodium 1 % apply 1-2 grams to affected area Externally Four times a day for 30 days January, Activedoxylamine succinate 25 mg oral tablet (11 sources)take 1 tablet by mouth once daily as needed for sleepdoxylamine (SLEEP AID, DOXYLAMINE,) 25 mg tablet Take 1 tablet (25 mg total) by mouth nightly as needed for sleep. Activeequate sleep aid (2 sources)Start: 80-28-2476mepk 1 tablet by mouth once dailyequate sleep aid equate sleep aid, 1 tab, Oral, Daily Insomnia Start Date: 03/05/20 Status: Ordered Repeat number: 1Start: 48-07-6254veti 1 tablet by mouth once dailyequate sleep aid equate sleep aid, 1 tab, Oral, Daily Insomnia Start Date: 03/05/20 Status: Orderedgabapentin 300 mg oral capsule (9 sources)Anti-epileptic AgentStart: 89-99-2296uoputsqenk 300 mg Cap See Instructions, TAKE 2 CAPSULES BY MOUTH TWICE DAILY, 2 (TWO) at night 1 inIN THE MORNING and one after lunch, # 360 EA, Refills(s) 0, Pharmacy: [facility], 165, cm, 10/02/24 11:39:00 EST, Height/Length Dosing, 97, kg, 10/02/24 11:39:00 EST, Weight Dosing Start Date: 10/03/24 Status: Ordered Quantity: 360.0 Unit: EA Repeat number: 1Start: 27-45-3451grab 1 capsule by mouth twice daily after lunchgabapentin 300 mg Cap 600 mg = 2 cap(s), Oral, BID, 2 at night 1 in the am and one after lunch, # 360 cap(s), Refills(s) 0, Pharmacy: [facility], 165, cm, 06/26/24 15:02:00 EDT, Height /Length Dosing, 103.7, kg, 06/26/24 15:02:00 EDT, Weight Dosing Start Date: 07/24/24 Status: OrderedStart: 88-43-9523ovqm 1 capsule by mouth every eight hoursGabapentin 100 MG 1 capsule Orally three times a day for 30 days Aug, ActiveglipiZIDE 5 mg oral tablet (4 sources)SulfonylureaStart: 10-04-2023 End: 13-42-5916crrb 1 tablet by mouth twice dailyglipiZIDE 5 mg Tab 5 mg = 1 tab(s), Oral, BID, # 180 tab(s), Refills(s) 3, Pharmacy: [facility], 165, cm, 10/04/23 11:01:00 EST, Height/Length Dosing, 107, kg, 10/04/23 11:01:00 EST, Weight Dosing Start Date: 10/04/23 Status: Ordered hydroCHLOROthiazide 12.5 mg / lisinopril 20 mg oral tablet (20 sources)Thiazide Diuretic, Angiotensin Converting Enzyme InhibitorStart: 72-99-0235zertvlzvtmllrrddiqb-lisinopril 12.5 mg-20 mg Tab 1 tab(s), Oral, Daily, 180 tab(s), Refill(s) 3, [facility], 165, cm, 10/02/24 11:39:00 EST, Height/Length Dosing, 97, kg, 10/02/24 11:39:00 EST, Weight Dosing Start Date: 10/02/24 Status: Ordered Quantity: 180.0 Unit: tab(s) Repeat number: 4Start: 20-28-8299wcvotbyljswlebizuxh-lisinopril 12.5 mg-20 mg Tab 1 tab(s), Oral, BID, 180 tab(s), Refill(s) 3, [facility], 165, cm, 10/04/23 11:01:00 EST, Height/Length [...] mg oral tablet (20 sources)Nonsteroidal Anti-inflammatory DrugStart: 84-32-1010apnw 1 tablet by mouth in the morningmeloxicam (MOBIC) 15 mg tablet Take 1 tablet (15 mg total) by mouth in the morning. 10/11/2020 Ghqdix53 hr metFORMIN hydrochloride 500 mg extended release oral tablet (20 sources)BiguanideStart: 85-26-7665rmzi 2 tablets by mouth twice daily Glucophage XR 500 mg Tab-ER 1,000 mg = 2 tab(s), Oral, BID, # 360 tab(s), Refills(s) 1, Pharmacy: [facility], 165, cm, 10/02/24 11:39:00 EST, Height/Length Dosing, 97, kg, 10/02/24 11:39:00 EST, Weight Dosing Start Date: 10/02/24 Status: Ordered Quantity: 360.0 Unit: tab(s) Repeat number: 2Start: 30-24-0723litr 2 tablets by mouth twice dailyGlucophage XR 500 mg Tab-ER 1,000 mg = 2 tab(s), Oral, BID, # 360 tab(s), Refills(s) 1, Pharmacy: [facility], 165, cm, 06/26/24 15:02:00 EDT, Height/Length [...] (MULTIPLE VITAMIN, WOMENS ORAL) Take by mouth. Qndvhp62 hr oxybutynin chloride 5 mg extended release oral tablet (20 sources)Cholinergic Muscarinic AntagonistStart: 36-76-8092uokn 1 tablet by mouth once dailyoxybutynin 5 mg ER Tab See Instructions, TAKE 1 TABLET BY MOUTH DAILY, # 90 tab(s), Refills(s) 3, Pharmacy: [facility], 165, cm, 10/02/24 11:39:00 EST, Height/Length Dosing, 97, kg, 10/02/24 11:39:00 EST, Weight Dosing Start Date: 10/02/24 Status: Ordered Quantity: 90.0 Unit: tab(s) Re peat number: 4Start: 03-70-7921xizb 1 tablet by mouth once dailyoxybutynin 5 mg ER Tab See Instructions, TAKE 1 TABLET BY MOUTH DAILY, # 90 tab(s), Refills(s) 3, Pharmacy: [facility], 165, cm, 06/26/24 15:02:00 EDT, Height/Length [...] release oral tablet (20 sources)Proton Pump InhibitorStart: 97-80-6263ntep 1 tablet by mouth in the morning, then take 1 tablet by mouth at bedtimepantoprazole (PROTONIX) 40 mg EC tablet Take 1 tablet (40 mg total) by mouth in the morning and 1 tablet (40 mg total) before bedtime. 11/24/2020 Activetake 1 tablet by mouth every twenty-four hoursPantoprazole Sodium 40 MG 1 tablet Orally Once a day ActiveProbiotic Digestive Aid Gummies (2 sources)Start: 48-90-9445Qsznszppb Digestive Aid Gummies See Instructions, Refill(s) 0, take 2 orally daily Start Date: 01/03/24 Status: Ordered Repeat number: 1Start: 86-69-2222Nkozwvntv Digestive Aid Gummies See Instructions, Refill(s) 0, take 2 orally daily Start Date: 01/03/24 Status: OrderedPsyllium (11 sources)Start: 40-90-4522Aizjcfuua See Instructions, Take 3 gummies orally daily, Refills(s) 0 Start Date: 01/03/24 Status: Ordered Repeat number: 1Start: 40-34-7179Fqxpypgbu See Instructions, Take 3 gummies orally daily, Refills(s) 0 Start Date: 01/03/24 Status: Orderedtake 2 capsules by mouth every eight hours Metamucil 0.52 GM 2 capsules with 8 ounces of liquid Orally Three times a day for 30 day(s) Not-Taking/PRNMetamucil 0.52 GM 2 capsules with 8 ounces of liquid Orally Three times a day for 30 day(s) Not-Takingsemaglutide (1 source)Start: 90-33-2582zjjnhoribme Refills(s) 0 Start Date: 03/28/25 Status: Ordered Repeat number: 1vitamin b12 0.1 mg oral tablet (2 sources)Vitamin S33Muxjr: 81-32-3325obye 1 tablet by mouth once daily cyanocobalamin 100 mcg oral tablet 100 mcg = 1 tab(s), Oral, Daily, # 90 tab(s), Refills(s) 3, Pharmacy: [facility], 167.6, cm, 02/02/23 13:51:00 EDT, Height/Length Dosing, 111.4, kg,02/02/23 13:51:00 EDT, Weight Dosing Start Date: 02/02/23 Status: FsllzllH63 Fast Dissolve 5000 MCG as directed Orally Active Completed/Discontinued Medications MedicationDrug Class(es)DatesSig (Normalized)Sig (Original)acetaminophen 325 mg / oxyCODONE hydrochloride 5 mg oral tablet (14 sources)Opioid AgonistStart: 69-16-1305hcny 1-2 tablets by mouth every four to [...] mg oral tablet (5 sources)gamma-Aminobutyric Acid-ergic AgonistStart: 28-83-6133ydbk 1 tablet by mouth three times daily [...] (6 sources)Abdominal tenderness; Translations: [Flank pain]Onset: 09-20-2024 66-55-8200HkyhuzkbBlkcjvyr of urinary tract (2 sources)Kidney -20-0081BouyftggEaewmtud (4 sources)Nuclear sclerotic cataract; Translations: [Age-related nuclear cataract, bilateral]Onset: 437540-54-5206BeaaopwLjorghkr mellitus with complications (5 sources)Type 2 diabetes mellitus with unspecified complications; Translations: [Type 2 diabetes mellitus inobese]Onset: 264806-57-6095 ChronicComment on above:linked DM with peripheral neuropathy per OP CDI policy. Diabetes mellitus without complication (6 sources)Type 2 diabetes mellitus without complications; Translations: [Type 2 diabetes mellitus without complication]Onset: hronic Disorders of lipid metabolism (1 source)Pure hypercholesterolemia, unspecified; Translations: [PURE HYPERCHOLESTEROLEMIA UNSPEC]Onset: 37-74-9664EarjmngUcrhbmtgpaqxco and diverticulitis (2 sources)Diverticular lqlajis36-67-0129CvnmznxA Codes: Natural/environment (1 source)Other and unspecified overexertion or strenuous movements or postures, initial encounter; Translations: [OTH AND UNS OVREXRT/STRN MVMT/POS INT]Onset: 69-73-2906CfizkwexGpmuednok hypertension (5 sources)Essential (primary) hypertension; Translations: [Hypertensive disorder]Onset: 639418-75-8504IomkcbkTehxesxmiekvb symptoms and ill- defined conditions (4 sources)Post-micturition incontinence ; Translations: [Urge incontinence of urine]45-45-5174CrjsrqwCvnichfonadcs symptoms and ill-defined conditions (10 sources)Herman hematuria; Translations: [Incomplete emptying of bladder] 63-52-5436FkjtiovbKkac and other crystal arthropathies (2 sources)Dqff29-36-7983AvisxcdKyodlmryw (2 sources)Nonalcoholic clmepurxjfgijqn85-93-4198ZmvxwzrRimpxjmpdi disorders (1 source)Unspecified menopausal and perimenopausal disorder; Translations: [UNS MENOPAUSAL PERIMENOPAUSAL D/O]Onset: 25-67-1369CwnmkxeStdhbawiylnzs gastroenteritis (2 sources)Chronic spogvram19-48-7396VovodjudYfmflkganiydav (9 sources)Osteoarthritis of hip; Translations: [Unilateral primary osteoarthritis, left hip]ChronicOther aftercare (1 source)alf (current) use of oral hypoglycemic drugs; Translations: [IOS DEVELOPER USE ORAL HYPOGLYCEMIC DX]Onset: 47-82-8635UqafeugkJhwbc aftercare (1 source)Other intermediate designer (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; Translations: [OTH IOS DEVELOPER CURRENT DRUG THERAPY]Onset: 01-88-0160EqxvkrloSkxij circulatory disease (2 sources)Elevated blood-pressure reading, without diagnosis of hypertension; Translations: [Elevated blood-pressure reading, without diagnosis of hypertension]Onset: 35-83-8125MpxfvhlgQmnpi connective tissue disease (9 sources)History of repair [...] diseases of bladder and urethra (2 sources)Urethral lhuczhalq71-74-7847NlmaywhdMbizd ear and sense organ disorders (2 sources)Sensorineural hearing loss, bilateral; Translations: [Sensorineural hearing loss, bilateral]88-64-5995AhejqrrMzcae ear and sense organ disorders (2 sources)Bilateral tinnitus; Translations: [Tinnitus, bilateral]01-30-2025 EpisodicOther ear and sense organ disorders (2 sources)Impacted cerumen of bilateral ears; Translations: [Impacted cerumen, bilateral]74-95-6744BmogquxnYowew gastrointestinal disorders (1 source)Irritable bowel syndrome without diarrhea; Translations: [IRRITABLE BOWEL SYND W/O DIARRHEA]Onset: 22-40-3063RrfluljYzwrk injuries and conditions due to external causes (1 source)Unspecified injury of left Achilles tendon, initial encounter; Translations: [UNS INJ LT ACHILLES TENDON INITIAL]Onset: 55-89-3871BuydmolhWouao liver diseases (1 source)Fatty (change of) liver, not elsewhere classified; Translations: [FATTY CHANGE LIVER NEC]Onset: 70-95-3062RmtfuglScivj liver diseases (1 source)Unspecified cirrhosis of liver; Translations: [UNSPECIFIED CIRRHOSIS OF LIVER]Onset: 55-60-1509VwacpmqMdrrf nervous system disorders (3 sources)Neuropathy; Translations: [Polyneuropathy, unspecified]ChronicOther nervous system disorders (3 sources)Polyneuropathy, unspecifiedChronicOther nervous system disorders (2 sources)Peripheral nerve jsfddsa80-88-4743HbwojauHcdga non-traumatic joint disorders (4 sources)Pain in left ankle and joints of left foot; Translations: [PAIN IN LEFT ANKLE]Onset: 72-67-7329QjnmnbsdJljtv nutritional; endocrine; and metabolic disorders (1 source)Metabolic syndrome; Translations: [METABOLIC SYNDROME]Onset: 34-95-4744WeukyurUxdlm nutritional; endocrine; and metabolic disorders (4 sources)Body mass index 30+ - yovkwvu43-23-9323FumunowKwzhv nutritional; endocrine; and metabolic disorders (2 sources)Morbid acabhjg97-53-8722UdnsnqaWbgiyvntis and visceral atherosclerosis (2 sources)Atherosclerosis of -78-8297BeacgpaGozbgew on above:added per 10/03/2023 query response.Residual codes; unclassified (1 source)Obstructive sleep apnea (adult) (pediatric); Translations: [OBSTRUCTIVE SLEEP APNEA]Onset: 01-40-9618QpucqnqAsyplkvw codes; unclassified (2 sources)Obstructive sleep apnea ngptdxra33-85-5914YpqjeglFlmdnlch codes; unclassified (1 source)Acquired absence of other specified parts of digestive tract; Translations: [ACQ ABSENCE OTH PART DIGESTV TRACT]Onset: 50-66-4242Krlqrkqj Residual codes; unclassified (2 sources)FH: Aortic paliqqty98-50-2606IsesvzneEqmettl detachments; defects; vascular occlusion; and retinopathy (8 sources)Epiretinal membrane of right eye; Translations: [Puckering of macula, right eye]Onset: 667586-23-9668LikjktmLxputnwlil arthritis and related disease (4 sources)Inflammatory polyarthropathy; Translations: [INFLAMMATORY POLYARTHROPATHY]Onset: 49-87-3752KhyfjekWacvlyzvybj; intervertebral disc disorders; other back problems (2 sources)Bdmxxran29-20-1626PwojcfmvGbgfqpb and strains (12 sources)Strain of right Achilles tendon, initial encounter; Translations: [Strain of left Achilles tendon, subsequent encounter]Onset: 62-05-2583Zxrammmv Unclassified (2 sources)Drug therapy yuaobsv72-17-1309Pbsjkmmpdrno (2 sources)Finding of sensation of upzyima17-09-1826Uebriydmkpis (2 sources)Patient encounter cskapc57-87-6017Ozlhkxrhfyso (1 source)Diabetic Eye ExamOnset: 46-94-4668Prymmhwetsji (1 source)Zdi--14pfaqxj10-54-5583Hxuagjpzrikx (1 source)Right epiretinal membraneOnset: 04-10-2025 Past or Other Problems Problem ClassificationProblemDateDocumented DateEpisodic/ChronicNonmalignant breast conditions (1 source)Unspecified lump in the left breast, upper inner quadrant; Translations: [UNS LUMP IN LT BREAST UPRINR QUAD]Onset: 60-84-3126TwrbphduSvvif screening for suspected conditions (not mental disorders or infectious disease) (9 sources)Other abnormal and inconclusive findings on diagnostic imaging of breast; Translations: [Encounter for screening mammogram for malignant neoplasm of breast]Onset: 32-05-1461Ogjfykpg Results Test NameValueInterpretationReference RangeFacilitySaint John'S Hospital Medicine Office/Clinic Noteon 83-64-3427[place] Medicine Office/Clinic NoteFalovering colony state hospital Medicine Office/Clinic Note HPI Staff Pt is [...] management for injections tohelp with pain. prefers [place] pain management. Ordered: MA Mamm Screen w/CAD [...] lunch, # 360 EA, Refills(s) 0, Pharmacy: [facility], 165, cm, 10/02/24 11:39:00 EST, Height/Length Dosing, 97, kg, 10/02/24 11:3... gabapentin, 300 mg = 1 cap(s), Oral, Bedtime, # 90 cap(s), Refills(s) 1, Pharmacy: [facility], 165, cm, 06/27/25 14:48:00 EDT, Height/Length Dosing, 85.7, kg, 06/27/25 14:48:00 EDT, Weight Dosing metformin, 1,000 mg = 2 tab(s), Oral, BID, # 360 tab(s), Refills(s) 1, Pharmacy: [facility], 165, cm, 10/02/24 11:39:00 EST, Height/Length [...] 5 mg ER T (more content not included)...[facility] HospitalComment on above:Result Comment: Electronically Signed By: Mary Trotter\.br\Date and Time Signed: 06/27/25 16:04 EDTNo Panel Informationon 28-59-9888EkfQlmypaAtrium Health Mercy 37-06-4429MwgqdmvaxStlckulaj From: Mary Trotter To: [facility] - Clinical; Sent: 04/01/2025 17:40:07 EDT Show up: 04/01/2025 17:40:00 EDT Subject: Ambulatory Reminder Due Date/Time: 04/02/2025 17:39:00 EDT HGBA1C is 5.6 this is great. Results: Date Result Name Value Ref Range 03/28/2025 15:23 Hgb A1C % 5.6 % ( - <=5.9) Left detailed message on pt's VM. (identified herself) Pt is to call with any questions.[facility] HospitalCHEMISTRYOrdered By: Nicolle Rhodes on 65-04-6516RiP4q (Bld) [Mass fraction]5.6 %Normal<=5.9%[facility] [place] ChemAutoSSFalovering colony state hospital Medicine Office/Clinic Noteon 26-79-3938Cbfepk Medicine Office/Clinic NoteSaint John'S Hospital Medicine Office/Clinic Note HPI Staff Patient is [...] tab(s), Oral, Daily, 180 tab(s), Refill(s) 3, [facility], 165, cm, 10/02/24 11:39:00 EST, Height/Length Dosing, 97, kg, 10/02/24 11:39:00 EST, WeightDosing metformin, 1,000 mg = 2 tab(s), Oral, BID, # 360 tab(s), Refills(s) 1, Pharmacy: [facility], 165, cm, 10/02/24 11:39:00 EST, Height/Length [...] in lifetime) Tobacco (more content not included)...Normal [facility] CenterComment on above:Result Comment: Electronically Signed By: Mary Trotter\katina\Date and Time Signed: 03/28/25 15:43 UKROglZ5h on 88-97-6200GkK2e (Bld) [Mass fraction]5.6 %Normal<=5.9[facility] CenterComment on above:Performed By: #### [id number] #### [facility] [address] [place], [place] [address]Zd Panel Informationon 51-44-5594EtxGmzknzDepartment of Veterans Affairs Medical Center-Wilkes BarreFalovering colony state hospital Medicine Office/Clinic Noteon 54-26-3328Iumcgz Medicine Office/Clinic NoteFamily Medicine Office/Clinic Note Chief [...] the use of Ozempic and medications from [employer]. She has successfully reduced her A1c to [...] after lunch, # 360 cap(s),Refills(s) 0, Pharmacy: [facility], 165, cm, 10/02/24 11:39:00 EST, Height/Length Dosing, 97, kg, 10/02/24 11:39:00 EST, Weight Dosing hydrochlorot (more content not included)...[facility] Comment on above:Result Comment: Electronically Signed By: Audie BIGGS, Rimma Castillobr\Date and Time Signed: 10/02/24 12:22 ESTCHEMISTRYOrdered By: SYSTEM SYSTEM on 52-97-8087Hbleizi [Mass/Vol]4.3 g/dLNormal3.3 - 5.0 gm/dLRemisol Chem Albumin DL <= 20 mg/L (U) [Mass/Vol]8.8 mg/dLHigh0.0 - 1.9 mg/dLRemisol Chem Albumin/Creatinine DL <= 20 mg/L (U) [Mass ratio]50.9 mg/gm CrHigh0.0 - 30.0 mg/gm CrRemisol ChemComment on above:Interpretive Data: 30-300 mg/g Cr indicates an increased risk for diabetic nephropathy. >300 mg/g Cr is consistent with clinical nephropathy.Albumin/Globulin [Mass ratio]1.4 {ratio}Normal1.1 - 2.2Remisol ChemALP [Catalytic activity/Vol]35 [iU]/wBwrmop59 - 98 Int._Unit/LRemisol ChemALT No additional P-5'-P [Catalytic activity/Vol]16 [iU]/dNormal6 - 46 Int._Unit/LRemisol ChemAnion gap [Moles/Vol] 14 mmol/LNormal6 - 16 mEq/LRemisol ChemAST [Catalytic activity/Vol]18 [iU]/d Normal5 - 43 Int._Unit/LRemisol ChemBilirubin [Mass/Vol]0.6 mg/dLNormal0.0 - 1.1 mg/dLRemisol ChemCalcium [Mass/Vol]9.0 mg/dLNormal8.9 - 11.1 mg/dLRemisol Chem Chloride [Moles/Vol]100 mmol/YKki819 - 111 mmol/LRemisol ChemCholesterol [Mass/Vol]183 mg/qEKjylgf860 - 200 mg/dLRemisol ChemCholesterol in HDL [Mass/Vol]44 mg/dLInvalid Interpretation CodeRemisol ChemComment on above:Result Comment: '>= 60 LOW RISK' '<= 40 HIGH RISK'Cholesterol in LDL [Mass/Vol]96 mg/dLNormal<=129mg/dLRemisol ChemCholesterol in VLDL [Mass/Vol]62 mg/dLHigh7 - 40 mg/dLRemisol ChemCO2 [Moles/Vol]26 mmol/LZavoey07 - 31 mmol/LRemisol ChemCreatinine [Mass/Vol]1.0 mg/dLNormal0.5 - 1.3 mg/dLRemisol UewceREF24 mL/min/1.73 y4Cylazc>=59mL/min/1.73 d6Zfnabrf ChemGlobulin (S) [Mass/Vol]3.1 g/dLNormal1.4 - 4.0 gm/dLRemisol Chem Glucose [Mass/Vol]110 mg/nXPdwfke75 - 199 mg/dLRemisol ChemPotassium [Moles/Vol] 4.2 mmol/LNormal3.5 - 5.3 mmol/LRemisol ChemProtein [Mass/Vol]7.4 g/dLNormal6.0 - 7.8 gm/dLRemisol ChemSodium [Moles/Vol]136 mmol/LKotbzh704 - 145 mmol/LRemisol ChemTriglyceride [Mass/Vol]309 mg/dLHigh<=149mg/dLRemisol ChemU Ismfzazrvd474.8 mg/dLInvalid Interpretation CodeRemisol ChemUrea nitrogen [Mass/Vol]16 mg/dL Normal5 - 21 mg/dLRemisol ChemUrea nitrogen/Creatinine [Mass ratio]16 mg/mg Uwctje73 - 20Remisol ChemCHEMISTRYOrdered By: Ana Maria Chao on 09-28-2024 HbA1c (Bld) [Mass fraction]5.8 %Normal<=5.9%[facility] [place] ChemAutoSSCMPon 09-28-2024 Albumin [Mass/Vol]4.3 g/dLNormal3.3-5.0[facility] Medical CenterComment on above:Performed By: #### [id number] #### [facility] [address] [place], [place] [address]Xybpuhl/Globulin (S) [Mass conc ratio]1.3Sbfqhk5.1-2.2FTuscarawas HospitalComment on above:Performed By: #### [id number] #### [facility] [address] [place], [place] [address]NKR [Catalytic activity/Vol]35 Int._Unit/URyzftd02-75QbengfCincinnati Children'S Hospital Medical CenterComment on above:Performed By: #### [id number] #### [facility] [address] [place], [place] [address]CHG No additional P-5'-P [Catalytic activity/Vol]16 Int._Unit/L Normal6-46[facility] Medical CenterComment on above:Performed By: #### [id number] #### [facility] [address] [place], [place] [address]Krukk gap [Moles/Vol]14 mmol/LNormal6-16[facility] Medical CenterComment on above:Performed By: #### [id number] #### [facility] [address] [place], [place] [address]WLG [Catalytic activity/Vol]18 Int._Unit/LNormal5-43[facility] Medical CenterComment on above:Performed By: #### [id number] #### [facility] [address] [place], [place] [address]Mqriovqel [Mass/Vol]0.6 mg/dLNormal0.0-1.1FTuscarawas HospitalComment on above:Performed By: #### [id number] #### [facility] [address] [place], [place] [address]Dcyynom [Mass/Vol]9.0 mg/dLNormal8.9-11.1FTuscarawas HospitalComment on above:Performed By: #### [id number] #### [facility] [address] [place], [place] [address]Mwxslkru [Moles/Vol]100 mmol/IRzw323-343Rwicib [facility] Medical CenterComment on above:Performed By: #### [id number] #### [facility] [address] [place], [place] [address]OP5 [Moles/Vol]26 mmol/CBwthee88-84ThquscCincinnati Children'S Hospital Medical Center Comment on above:Performed By: #### [id number] #### [facility] [address] [place], [place] [address]Vcbwiambof [Mass/Vol]1.0 mg/dLNormal0.5-1.3FTuscarawas HospitalComment on above:Performed By: #### [id number] #### [facility] [address] [place], [place] [address]Xxxtyorv (S) [Mass/Vol]3.1 g/dLNormal1.4-4.0C[facility] Hospital Medical CenterComment on above:Performed By: #### [id number] #### [facility] [address] [place], [place] [address]Fecvytt [Mass/Vol]110 mg/xZQtyrle50-044JjbjgqCincinnati Children'S Hospital Medical CenterComment on above:Performed By: #### [id number] #### [facility] [address] [place] [address]Ukooqvkbe [Moles/Vol]4.2 mmol/LNormal3.5-5.3FTuscarawas HospitalComment on above:Performed By: #### [id number] #### [facility] [address] [place], [place] [address]Erhptgt [Mass/Vol]7.4 g/dLNormal6.0-7.8[facility] Medical CenterComment on above:Performed By: #### [id number] #### [facility] [address] [place], [place] [address]Qspdpl [Moles/Vol]136 mmol/GArhgoj904-062TotczsCincinnati Children'S Hospital Medical CenterComment on above:Performed By: #### [id number] #### [facility] [address] [place], [place] [address]Tpax nitrogen [Mass/Vol]16 mg/dLNormal5-21[facility] Medical CenterComment on above:Performed By: #### [id number] #### [facility] [address] [place], [place] [address]Tayc nitrogen/Creatinine [Mass ratio]16 No XaawmKampuh45-37 [facility] Medical CenterComment on above:Performed By: #### [id number] #### [facility] [address] [place], [place] [address]OakL4ruh 45-72-2164ZwJ0n (Bld) [Mass fraction]5.8 %Normal<=5.9 [facility] Medical CenterComment on above:Performed By: #### [id number] #### [facility] [address] [place], [place] [address]Jovdw Panelon 77-30-7560Qqojghbwllq [Mass/Vol]183 mg/dLNormal 120-200C[facility] Medical CenterComment on above:Performed By: #### [id number] #### [facility] [address] [place], [place] [address]Pkbqyjgfbhx in HDL [Mass/Vol]44 mg/dLInvalid Interpretation CodeCincinnati Children'S Hospital Medical CenterComment on above:Result Comment: '>= 60 LOW RISK' '<= 40 HIGH RISK'Performed By: #### [id number] #### [facility] [address] [place], [place] [address]Fhhpaytbesd in LDL [Mass/Vol]96 mg/dLNormal<=129C[facility] Hospital Medical CenterComment on above:Performed By: #### [id number] #### [facility] [address] [place], [place] [address]Fithepvrala in VLDL [Mass/Vol]62 mg/dLHigh7-40[facility] Medical CenterComment on above:Performed By: #### [id number] #### [facility] [address] [place], [place] [address]Xehheaemlyik [Mass/Vol]309 mg/dLHigh<=149C[facility] Medical CenterComment on above:Performed By: #### [id number] #### [facility] [address] [place], [place] [address]T MA/Cr Ratioon 84-32-1071Gcmlfrr DL <= 20 mg/L (U) [Mass/Vol] 8.8 mg/dLHigh0.0-1.9[facility] Medical CenterComment on above:Performed By: #### [id number] #### [facility] [address] [place], [place] [address]Xipusee/Creatinine DL <= 20 mg/L (U) [Mass ratio]50.9 mg/gm Cr High.0-30.0[facility] Hospital Medical CenterComment on above:Result Comment: 30-300 mg/g Cr indicates an increased risk for diabetic nephropathy. >300 mg/g Cr is consistent with clinical nephropathy.Performed By: #### [id number] #### [facility] [address] [place], [place] [address]K Aiwwwkkapy017.8 mg/dLInvalid Interpretation CodeCincinnati Children'S Hospital Medical CenterComment on above:Performed By: #### [id number] #### [facility] [address] [place], [place] [address]xTSMnm 32-85-4177lINW05 mL/min/1.73 j1Pcpqbk>=59C[facility] Hospital Medical CenterComment on above:Performed By: #### [id number] #### [facility] [address] [place], [place] [address]OCQQA METABOLIC PANELon 53-85-3986Mqesjvc [Mass/Vol]9.8 mg/dL Normal8.4-10.2GWellstar Cobb HospitalComment on above:Order Comment: [facility] has implemented the eGFR calculation approach that does not have a coefficient for race that conforms to the NKF-ASN Task Force Recommendations.Performed By: #### [id number] #### [facility] ([facility]) [facility] [address] [place], [place] [address] Ashlee Hull M.D. [id number] WITH AUTO DIFFERENTIALon 21-90-3094SPSU NRBC0.0 %[facility] HospitalComment on above:Performed By: #### [id number] #### [facility] ([facility]) [facility] [address] [place] [address] Ashlee Hull M.D. [id number] NRBC ABS COUNT0.00 K/mcLNormal0.00-0.00[facility] Comment on above:Performed By: #### [id number] #### [facility] ([facility]) [facility] [address] [place] [address] Ashlee Hull M.D. [id number] ABSOLUTE COUNT0.03 K/mcLNormal0.00-0.30[facility] Comment on above:Performed By: #### [id number] #### [facility] ([facility]) [facility] [address] [place] [address] Ashlee Hull M.D. [id number]/100 WBC (Bld)0.4 %[facility] HospitalComment on above:Performed By: #### [id number] #### [facility] ([facility]) [facility] [address] [place] [address] Ashlee Hull M.D. [id number] (Bld) [#/Vol]0.06 10*3/uLNormal0.00-0.50[facility] - NampaComment on above:Performed By: #### [id number] #### [facility] ([facility]) [facility] [address] [place] [address] Ashlee Hull M.D. [id number]/100 WBC (Bld)0.8 %[facility] HospitalComment on above:Performed By: #### [id number] #### [facility] ([facility]) [facility] [address] [place] [address] Ashlee Hull M.D. [id number] distribution width (RBC) [Ratio]12.5 %Estmpr61.6-14.8[facility] - NampaComment on above:Performed By: #### [id number] #### [facility] ([facility]) [facility] [address] [place] [address] Ashlee Hull M.D. [id number] (Bld) [Volume fraction]38.3 %Aiozfu20.0-46.0[facility] - NampaComment on above:Performed By: #### [id number] #### [facility] ([facility]) [facility] [address] [place] [address] Ashleelaurel Hull M.D. [id number] (Bld) [Mass/Vol]12.9 g/lZNlxxhq09.0-16.0[facility] - NampaComment on above:Performed By: #### [id number] #### [facility] ([facility]) LAB [address] [place] [address] Ashlee Hull M.D. [id number] ABSOLUTE0.02 K/mcLNormal0.00-0.30[facility] - NampaComment on above:Performed By: #### [id number] #### [facility] ([facility]) [facility] [address] [place] [address] Ashlee Hull M.D. [id number] PERCENT0.30 %[facility] HospitalComment on above:Result Comment: The IG parameter is the percentage of metamyelocytes, myelocytes and promyelocytes.An immature granulocyte count (IG) of 1% or more suggests the possibility of infection, an IG countof 3% is very likely related to an infection.Performed By: #### [id number] #### [facility] ([facility]) [facility] [address] [place] [address] Ashlee Hull M.D. [id number] (Bld) [#/Vol]2.89 10*3/uLNormal0.90-4.00[facility] - NampaComment on above:Performed By: #### [id number] #### [facility] ([facility]) [facility] [address] [place] [address] Ashlee Hull M.D. [id number]/100 WBC (Bld)39.3 %[facility] HospitalComment on above:Performed By: #### [id number] #### [facility] ([facility]) LAB [address] [place] [address] Ashlee Hull M.D. [id number] (RBC) [Entitic mass]30.9 dmJfubmd10.0-34.0[facility] Comment on above:Performed By: #### [id number] #### [facility] [address] [place] [address] Ashlee Hull M.D. [id number] (RBC) [Entitic vol]91.6 lPRdcnqb86.0-100.0[facility] Comment on above:Performed By: #### [id number] #### [facility] ([facility]) LAB [address] [place] [address] Ashlee Hull M.D. [id number] CORPUSCULAR HEMOGLOBIN CONC33.7 g/oFHkgyal56.0-37.0[facility] NampaComment on above:Performed By: #### [id number] #### [facility] ([facility]) [facility] [address] [place] [address] Ashlee Hull M.D. [id number] (Bld) [#/Vol]0.43 10*3/uLNormal0.30-0.90[facility] Comment on above:Performed By: #### [id number] #### [facility] ([facility]) [facility] [address] [place] [address] Ashlee Hull M.D. [id number]/100 WBC (Bld)5.8 %[facility] HospitalComment on above:Performed By: #### [id number] #### [facility] ([facility]) [facility] [address] [place] [address] Ashlee Hull M.D. [id number] ABSOLUTE COUNT3.93 K/mcLNormal1.70-7.00[facility] - NampaComment on above:Performed By: #### [id number] #### [facility] ([facility]) [facility] [address] [place] [address] Ashlee Hull M.D. [id number]/100 WBC (Bld)53.4 %NormalSaint Alphonsus Medical Center - NampaComment on above:Performed By: #### [id number] #### [facility] ([facility]) [facility] [address] [place] [address] Ashlee Hull M.D. [id number] mean volume (Bld) [Entitic vol]8.7 fLLow9.4-12.4GWellstar Cobb HospitalComment on above:Performed By: #### [id number] #### [facility] ([facility]) [facility] [address] [place] [address] Ashlee Hull M.D. [id number] (Bld) [#/Vol]234 10*3/eNEzzpvj296-067[facility] Comment on above:Performed By: #### [id number] #### [facility]) [facility] [address] [place] [address] Ashlee Hull M.D. [id number] (Bld) [#/Vol]4.18 10*6/uLNormal4.00-5.20[facility] Comment on above:Performed By: #### [id number] #### [facility] ([facility]) [facility] [address] [place] [address] Ashlee Hull M.D. [id number] (Bld) [#/Vol]7.36 10*3/uLNormal4.50-11.00[facility] Comment on above:Performed By: #### [id number] #### [facility] ([facility]) [facility] [address] [place] [address] Ashlee Hull M.D. [id number] 7on 66-38-7269Mmhpw gap [Moles/Vol]22 mmol/FVeyp77-78CnsahSaint Alphonsus Medical Center - NampaComment on above:Order Comment: [facility] has implemented the eGFR calculation approach that does not have a coefficient for race that conforms to the NKF-ASN Task Force Recommendations.Performed By: #### [id number] #### [facility] ([facility]) [facility] [address] [place] [address] Ashlee Hull M.D. [id number] By: #### [id number] #### [facility] ([facility]) [facility] [address] [place] [address] Ashlee Hull M.D. [id number] [Moles/Vol]95 mmol/NKqq58-103XdvvuSaint Alphonsus Medical Center - NampaComment on above:Order Comment: [facility] has implemented the eGFR calculation approach that does not have a coefficient for race that conforms to the NKF-ASN Task Force Recommendations.Performed By: #### [id number] #### [facility] ([facility]) [facility] [address] [place] [address] Ashlee Hull M.D. [id number] By: #### [id number] #### [facility] ([facility]) [facility] [address] [place] [address] Ashlee Hull M.D. [id number] [Mass/Vol]1.06 mg/dLNormal0.60-1.10[facility] Comment on above:Order Comment: [facility] has implemented the eGFR calculation approach that does not have a coefficient for race that conforms to the NKF-ASN Task Force Recommendations.Performed By: #### [id number] #### [facility] ([facility]) [facility] [address] [place] [address] Ashlee Hull M.D. [id number] By: #### [id number] #### [facility] ([facility]) [facility] [address] [place] [address] Ashlee Hull M.D. [id number] mL/min/1.73 m2Low>=60[facility] Center - NampaComment on above:Order Comment: [facility] has implemented the eGFR calculation approach that does not have a coefficient for race that conforms to the NKF-ASN Task Force Recommendations.Result Comment: Estimated GFR was calculated using the 2020 CKD-EPI creatinine equation. Estimated GFR was calculated using the 2020 CKD-EPI creatinine equation. Performed By: #### [id number] #### [facility] ([facility]) [facility] [address] [place] [address] Ashlee Hull M.D. [id number] Comment: Estimated GFR was calculated using the 2020 CKD-EPI creatinine equation.Performed By: #### [id number] #### [facility] ([facility]) LAB [address] [place] [address] Ashlee Hull M.D. [id number] [Mass/Vol]107 mg/sODxbc21-63Hxoqu69 Andrade StreetComment on above:Order Comment: [facility] has implemented the eGFR calculation approach that does not have a coefficient for race that conforms to the NKF-ASN Task Force Recommendations.Performed By: #### [id number] #### [facility] ([facility]) [facility] [address] [place] [address] Ashlee Hull M.D. [id number] By: #### [id number] #### [facility] ([facility]) LAB [address] [place] [address] Ashlee Hull M.D. [id number] (Bld) [Moles/Vol]23 mmol/HTfdzlr06-52Rznof70 Rogers StreetComment on above:Order Comment: [facility] has implemented the eGFR calculation approach that does not have a coefficient for race that conforms to the NKF-ASN Task Force Recommendations.Performed By: #### [id number] #### [facility] ([facility]) [facility] [address] [place] [address] Ashlee Hull M.D. [id number] By: #### [id number] #### [facility] ([facility] [address] [place] [address] Ashlee Hull M.D. [id number] [Moles/Vol]4.8 mmol/LNormal3.5-5.1GWellstar [facility] Hospital Comment on above:Order Comment: [facility] has implemented the eGFR calculation approach that does not have a coefficient for race that conforms to the NKF-ASN Task Force Recommendations.Performed By: #### [id number] #### [facility] ([facility]) LAB [address] [place] [address] Ashlee Hull M.D. [id number] By: #### [id number] #### [facility] ([facility]) LAB [address] [place] [address] Ashlee Hull M.D. [id number] [Moles/Vol]135 mmol/SWytqdz598-353TsbcgSaint Alphonsus Medical Center - NampaComment on above:Order Comment: [facility] has implemented the eGFR calculation approach that does not have a coefficient for race that conforms to the NKF-ASN Task Force Recommendations.Performed By: #### [id number] #### [facility] ([facility]) LAB [address] [place] [address] Ashlee Hull M.D. [id number] By: #### [id number] #### [facility] ([facility]) LAB [address] [place] [address] Ashlee Hull M.D. [id number] nitrogen [Mass/Vol]21 mg/dLNormal8-25[facility] - NampaComment on above:Order Comment: [facility] has implemented the eGFR calculation approach that does not have a coefficient for race that conforms to the NKF-ASN Task Force Recommendations.Performed By: #### [id number] #### [facility] ([facility]) LAB [address] [place] [address] Ashlee Hull M.D. [id number] By: #### [id number] #### [facility] ([facility]) LAB [address] [place] [address] Ashlee Hull M.D. [id number] nitrogen/Creatinine [Mass ratio]19.8 mg/rrLdkrfd08.0-20.0[facility] Center - NampaComment on above:Order Comment: [facility] has implemented the eGFR calculation approach that does not have a coefficient for race that conforms to the NKF-ASN Task Force Recommendations.Performed By: #### [id number] #### [facility] ([facility]) LAB [address] [place], [place] [address] Ashlee Hull M.D. [id number] By: #### [id number] #### [facility] ([facility]) LAB [address] [place], [place] [address] Ashlee Hull M.D. [id number] ABDOMEN PELVIS WITHOUT CONTRASTon 95-52-2091BZ ABDOMEN PELVIS WITHOUT CONTRASTEXAMINATION: CT OF THE [...] post cholecystectomy and hysterectomy. MS/lab Workstation ID: [id number] Dictated by: MAGGY LUIS on TueSep 20, 2024 4:01:25 PM EST Transcribed by: BEATA AHN on TueSep 20, 2024 4:04:27 PM EST Finalized by: MAGGY LUIS on [place] Sep 23, 2024 6:46:42 PM [facility] HospitalComment on above:Order Comment: Injury/Trauma or Illness?:Illness/Other How long have you had these symptoms (acute/chronic)?:Acute Reason for exam?:LLQ abdominal pain this morning Type of Exam?:Initial Additional signs and symptoms?:noED Prov Noteon 15-21-9179QX [facility]EM[facility]HOW[facility] PROVIDER NOTE [facility] Encounter Date: 09/20/24 History obtained [...] cholecystectomy and hysterectomy (more content not included)... [facility] HospitalAmbulatory Visit Summaryon 94-43-3952Tnwgqggmyk Visit SummaryAmbulatory Visit Summary DAKSHA CORLEY :1950 [...] Appointments Tuesday 9:20 AM EST With: Where: [address] [address]- Tuesday 1:15 PM EST With: Rimma Kelly MD Where: [address] [address]- 2024 2:30 PM EDT With: Where: [address] [address]- You Need to Complete the Following Comprehensive [...] Unchanged Misc Prescription (BAYLEE (more content not included)...[facility] Medicine Office/Clinic Noteon 17-70-6789Cwrrcr Medicine Office/Clinic NoteFalovering colony state hospital Medicine Office/Clinic Note Chief Complaint Subsequent Medicare [...] Comments : wears corrective lens. Goes to [facility] yearly. Albin Rachel Clements 06/26/2024 14:44 EDT [...] Updated: 06/26/2024 14:50:36 ED (more content not included)...[facility] Comment on above:Result Comment: Electronically Signed By: Rimma Kelly MD\.br\Date and Time Signed: 07/02/24 15:04 EDT\.br\Electronically Co-Signed By: Rachel Bolanos\.br\Date and Time Co-Signed: 06/26/24 16:50 EDTAmbulatory Visit Summaryon 20-20-7232Cfptxssxse Visit SummaryAmbulatory Visit Summary DAKSHA CORLEY Nat [...] Appointments Tuesday 9:20 AM EST With: Where: [address] [address]- Tuesday 1:15 PM EST With: Rimma Kelly MD Where: [address] [address]- 2024 2:30 PM EDT With: Where: [address] [address]- Medications What How Much When [...] concerns Unchanged oxybutynin (oxybu (more content not included)...[facility] HospitalAmbulatory Visit SummaryAmbulatory Visit Summary DAKSHA CORLEY [...] PM EST With: Rimma Kelly MD Where: [facility] Medicine [address] [address]- Medications What How Much When Why Instructions [...] female Peripheral neuropathy Pos (more content not included)...[facility] Medicine Office/Clinic Noteon 30-92-6882Brffhe Medicine Office/Clinic NoteFalovering colony state hospital Medicine Office/Clinic Note Chief Complaint Management of [...] medicare to cover it. Fax to # [phone] ([facility]) Needs refills of her her [...] in semaglutide dosing suggested. Ordered: A1c POC [address] [facility] [place] Referral 2. HTN (hypertension) (I10: Essential (primary) hypertension) Management of essential hypertension was not a primary focus of today's discussion, but continued adherence to current treatment regimens is presumed. Ordered: A1c POC 76233 [facility] [facility] [place] Ref[place] 3. [...] enhance weight loss efficacy. Ordered: A1c POC 63206 [facility] [place] Ambulatory Referral 4. ELY (obstructive s (more content not included)...[facility] HospitalComment on above:Result Comment: Electronically Signed By: Rimma Kelly MD\.br\Date and Time Signed: 06/26/24 14:49 EDTAmbulatory Visit Summaryon 87-31-2338Hwuhcqcktr Visit SummaryAmbulatory Visit Summary DAKSHA CORLEY :1950 [...] Follow-Up Appointments Tuesday 1:00 PM EDT Where: [facility] Medicine Office/Clinic Noteon 02-17-9667[facility] Medicine Office/Clinic NoteSaint [facility]/Clinic Note HPI Staff Daksha [...] - No other issues Ordered: A1c POC 85196 Body Mass Index (BMI) documented 3008F Current [...] - Continue as before Ordered: A1c POC 56494 Body Mass Index (BMI) documented 3008F Current [...] - BMI education added Ordered: A1c POC 60939 Body Mass Index (BMI) documented 3008F Current [...] Diet and exercise advised Ordered: A1c POC 06145 Body Mass Index (BMI) documented 3008F Current [...] continue to not smoke Ordered: A1c POC 56934 Body Mass Index (BMI) documented 3008F Current [...] after lunch, # 360 cap(s),Refills(s) 0, Pharmacy: [facility], 165, cm, 03/27/24 10:13:00 EDT, Height/Length Dosing, 107.9, kg, 03/27/24 10:13:00 EDT, Weight Dosing semaglutide, 0.25 mg, SubCutaneous, qWeek, # 3 mL, Refills(s) 0, Pharmacy: [facility], 165, cm, 03/27/24 10:13:00 EDT, Height/Length Dosing, 107.9, kg, 03/27/24 10:13:00 EDT, Weight Dosing Follow-up No qualifying data available Patient Education BMI for Adults Problem List/Past Medical History Ongoing Advanced care planning/counseling discussion Anticoagulated Aortic atherosclerosis Back pain BMI 39.0-39.9,adult Chronic diarrhea Diverticular disease Family hx of aortic aneurysm Feeling of incomplete bladder emptying Frequency of (more content not included)...[facility] Comment on above:Result Comment: Electronically Signed By: Audie BIGGS, Rimma Moyer.br\Date and Time Signed: 03/27/24 10:59 EDTFamily Medicine Office/Clinic Noteon 56-22-2364Fmywmr Medicine Office/Clinic NoteHPI Staff Daksha is a 72 year old female presenting for 3 month follow up dm, htn will need to document face to face for cpap machine replacement Rx written for c-pap machine w/ humidifier and rx must state motor life exceeded repair or replacement. Pressure setting 11 Fax to [facility] [phone] Do you have any of the following [...] EA, Oral, BID, 210 gram, Refill(s) 0, [facility], 165, cm, 01/03/24 10:13:00 EDT, Height/Length Dosing, 108.1, kg, 01/03/24 10:13:00 EDT, Weight Dosing 2. Type 2 diabetes mellitus with morbid obesity (E11.69: Type 2 diabetes mellitus with other specified complication) - Will recheck A1c today. Ordered: cholestyramine, 5 gram, 1 EA, Oral, BID, 210 gram, Refill(s) 0, [facility], 165, cm, 01/03/24 10:13:00 EDT, Height/Length Dosing, 108.1, kg, 01/03/24 10:13:00 EDT, Weight Dosing 3. BMI 39.0-39.9,adult (Z68.39: Body mass index [BMI] 39.0-39.9, adult) - BMI education uploaded Ordered: cholestyramine, 5 gram, 1 EA, Oral, BID, 210 gram, Refill(s) 0, [facility], 165, cm, 01/03/24 10:13:00 EDT, Height/Length Dosing, 108.1, kg, 01/03/24 10:13:00 EDT, Weight Dosing 4. Class 1 obesity due to excess calories in adult (E66.09: Other obesity due to excess calories) - Diet and exercise advised Ordered: cholestyramine, 5 gram, 1 EA, Oral, BID, 210 gram, Refill(s) 0, [facility], 165, cm, 01/03/24 10:13:00 EDT, Height/Length Dosing, 108.1, kg, 01/03/24 10:13:00 EDT, Weight Dosing 5. Nonsmoker (Z78.9: Other specified health status) - Please continue to not smoke Ordered: cholestyramine, 5 gram, 1 EA, Oral, BID, 210 gram, Refill(s) 0, [facility], 165, cm, 01/03/24 10:13:00 EDT, Height/Length Dosing, 108.1, kg, 01/03/24 10:13:00 EDT, Weight Dosing 6. ELY (obstructive sleep apnea) (G47.33: Obstructive sleep apnea (adult) (pediatric)) - Will redo the CPAP Ordered: cholestyramine, 5 gram, 1 EA, Oral, BID, 210 gram, Refill(s) 0, [facility], 165, cm, 01/03/24 10:13:00 EDT, Height/Length Dosing, 108.1, kg, 01/03/24 10:13:00 EDT, Weight Dosing 7. Chronic diarrhea (K52.9: Noninfective gastroenteritis and colitis, unspecified) - Will try Cholestyramine given hx of gallbladder. - Maybe 2/2 partial colectomy. Ordered: cholestyramine, 5 gram, 1 EA, Oral, BID, 210 gram, Refill(s) 0, [facility], 165, cm, 01/03/24 10:13:00 EDT, Height/Length Dosing, 108.1, kg, 01/03/24 10:13:00 EDT, Weight Dosing 8. Family hx of aortic aneurysm (Z82.49: Family history of ischemic heart disease and other diseases of the circulatory system) U/S ordered. Ordered: US Aorta Orders: gabapentin, 300 mg = 1 cap(s), Oral, BID, # 180 cap(s), Refills(s) 0, Pharmacy: [facility], 165, cm, 01/03/24 10:13:00 EDT, Height/Length [...] urine stream Historical Abdomi (more content not included)...[facility] HospitalComment on above:Result Comment: Electronically Signed By: Audie BIGGS, Rimma Alfredo\.br\Date and Time Signed: 03/02/24 10:56 EDTRAD - Ultrasound Reporton 35-68-0788JGO - Ultrasound [id number]#1.00TIFFNoMercy Health – The Jewish HospitalAmbulatory Visit Summaryon 98-24-8483Tukfhsmylp Visit Summary DAKSHA CORLEY :1950 Visit Date:01/03/2024 [...] AM EDT With: Rimma Kelly MD [facility] [place] [phone] \.br\ You Need to Complete the Following\.br\ US Aorta, 01/03/24, Routine, Order for future visit, Transport Mode: Ambulatory, Reason: Other (please specify), No, Family hx of aortic aneurysm, Family Hx. 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 [facility]\.br\ Unchanged gabapentin (gabapentin 300 mg Cap) 1 Capsules By Mouth 2 times a day Pickup at [facility]\.br\ Unchanged ascorbic acid (ascorbic acid 1000 [...] if questions or concerns \.br\ Pharmacy Information\.br\ [facility]: [address] [place], [place] [id number] [phone]\.br\ Allergies\.br\ Dilaudid (Foggy mind)\.br\ Biaxin\.br\ CeleBREX\.br\ Nubain [...] for choosing us for your care.\.br\ \.br\[facility] Clinical Noteon 57-72-1509Logcvh - Clinical Note [id number]#1.00TIFMercy Memorial HospitalConsultation Noteon 95-67-1515Gfxltfnbkvbm Note [id number]#1.00Flower HospitalXR FOOT LT MIN 3 VIEWSon 56-50-4477IA FOOT LT MIN 3 VIEWSXR FOOT LT [...] Electronically authenticated by: TARAS WILEY Date: 2022-11-21 01:25[facility] HospitalANA by IFAon 94-71-8653Avdoqrfpvgn Antibodies, IFANegative NormalThe [facility] HospitalComment on above:Result Comment: Negative <1:80 Borderline 1:80 Positive >1:80 ICAP nomenclature: AC-0 For more information about Hep-2 cell patterns use ANApatterns.org, the official website for the International Consensus on Antinuclear Antibody (MARQUEZ) Patterns (ICAP).Performed By: #### ANAIFA ####[facility] [address] [place], [place] [address]Dr. Marcella CortesANTISTREPTOLYSIN O AB (ASO)on 49-40-8301Kkysstettppdbdkd O Ab104.5 IU/mLNormal0.0-200.0The [facility] HospitalComment on above:Performed By: #### ASOAB #### [facility] [address] [place] [address] Dr. Marcella CortesRHEUMATOID FACTORon 25-81-7866GD Latex Turbid.<10.0Normal<14.0The [facility] HospitalComment on above:Performed By: #### RF #### [facility] [address] [place] [address] Dr. Marcella CortesCBC AUTO DIFFon 04-98-5381VBRN #0.0 103/ulNormal0.0-0.1The [facility] HospitalComment on above:Performed By: #### CBC ####[facility] Byavhsfrpo[address] [place], [place] [address]Dr.Marcella CortesBasophils/100 WBC (Bld)0.5 %Normal0.2-2.0The [facility] HospitalComment on above:Performed By: #### CBC ####[facility] Tyymeaeumf[address] [place], [place] [address]Dr.Marcella ChangEO #0.1 103/ulNormal0.0-0.7The [facility] HospitalComment on above:Performed By: #### CBC ####[facility] Nsrtmvfegy[address] [place], [place] [address]DrDave ChangEosinophils/100 WBC (Bld)1.4 %Normal 0.9-7.0The [facility] HospitalComment on above:Performed By: #### CBC ####[facility] Ltvhnjayta[address] [place], [place] [address]DrDave Cortes Erythrocyte distribution width (RBC) [Ratio]12.6 %Pdblnu50.0-15.0The [facility] HospitalComment on above:Performed By: #### CBC ####[facility] Ejbjzwyudh[address] [place], [place] [address]Dr.Marcella CortesHematocrit (Bld) [Volume fraction]37.1 %Pnfoml34.0-48.0The [facility] HospitalComment on above:Performed By: #### CBC ####[facility] Tolkwmyydm[address] [place], [place] [address]Dr.Marcella SebastianHemoglobin (Bld) [Mass/Vol]12.4 g/dL Pusvxk66.0-16.0The [facility] HospitalComment on above:Performed By: #### CBC ####[facility] Sqwbjohnsr[address] [place], [place] [address]Dr. Marcella CortesIG #0.03 10e3/ulNormal0.00-0.03The [facility] HospitalComment on above: Performed By: #### CBC ####[facility] Jtczuxzeij[address] [place], [place] [address]Dr.Marcella CortesIG %0.5 %Normal0.0-0.5The [facility] HospitalComment on above:Performed By: #### CBC ####[facility] Ranorz[address]zj[address] [place], [place] [address]Dr.Marcella SebastianLYMPH #2.4 103/ulNormal1.2-3.8The [facility] HospitalComment on above:Performed By: #### CBC ####[facility] Gciuzvjvko[address] [place], [place] [address]Dr. Marcella CortesLymphocytes/100 WBC (Bld)36.2 %Tihtli22.5-60.0[facility] Comment on above:Performed By: #### CBC ####[facility] Uewrluevex[address] [place], [place] [address]Dr.Marcella CortesMANUAL DIFF REQNONormalThe [facility]zer HospitalComment on above:Performed By: #### CBC ####[facility] Fqqkzpeemk[address] [place], [place] [address]Dr.Marcella CortesST. [facility]ER[facility] (RBC) [Entitic mass]30.3 ymJwiudg98.7-34.0The [facility] HospitalComment on above: Performed By: #### CBC ####[facility] [address] [address]Dr.Marcella CortesHC (RBC) [Mass/Vol]33.4 g/dLNormal 29.9-35.2The [facility] HospitalComment on above:Performed By: #### CBC ####[facility] [address] [address]Dr. Marcella CortesV (RBC) [Entitic vol]90.7 yYTwqhcn79.0-99.0[facility] Comment on above:Performed By: #### CBC ####[facility] Fhwbkrqxer[address] [place], [place] [address]Dr.Marcella SebastianMONO #0.4 103/ulNormal0.3-0.8 The [facility] HospitalComment on above:Performed By: #### CBC ####[facility] Dmtvrmjjni[address] [place], [place] [address]Dr.Marcella Sebastian Monocytes/100 WBC (Bld)5.9 %Normal1.7-12.0The [facility] HospitalComment on above: Performed By: #### CBC ####[facility] L[address]thdlsem[address] [place], [place] [address]Dr.Marcella CortesNEUT #3.7 103/ulNormal1.4-6.5The [facility] HospitalComment on above:Performed By: #### CBC ####[facility] Vkmomjmcby[address] [place], [place] [address]Dr.Marcella CortesNeutrophils/100 WBC (Bld)55.5 %Wnsuzd13.0-75.0The [facility] HospitalComment on above:Performed By: #### CBC ####[facility] G[address]oufoner[address] [place], [place] [address]Dr.Marcella SebastianPlatelet mean volume (Bld) [Entitic vol]8.7 fLCritically low 9.5-13.5The [facility] HospitalComment on above:Performed By: #### CBC ####[facility] [address] [address]Dr. Marcella GgswoSSI417 103/hsMhbkgp646-072Vke [facility] HospitalComment on above: Performed By: #### CBC ####[facility] [address] [place] [place] [address]Dr.Marcella ChangRBC4.09 106/ulCritically low4.20-5.40The [facility] HospitalComment on above:Performed By: #### CBC ####[facility] [address] [place] [address]Dr.Marcella CortesWBC6.7 103/ul Normal4.0-11.0The [facility] on above:Performed By: #### CBC ####[facility] [address] [place] [address]DrPastora CortesCRPon 40-93-8469VBS5.7 mg/dLNormal<=1.0The [facility] HospitalComformerly [facility] on above:Performed By: #### CRP, URIC, LIPID, CMP #### [facility] [address] [address] [address] Marcella CortesGLYCOHEMOGLOBIN A1Con 65-90-2486TUW RECOMMENDATIONSEE BELOWNormal The [facility] HospitalComformerly [facility] on above:Result Comment: ADA RECOMMENDED LIMIT 4.0 - 6.0 ADA THERAPEUTIC TARGET < 7.0 ACTION SUGGESTED > 7.0Performed By: #### A1C ####[facility] [address] [address]DrPastora CortesGlucose [Mass/Vol]186 mg/dLNormalThe [facility] HospitalComformerly [facility] on above:Performed By: #### A1C ####[facility] [address] [address]DrDave CortesHbA1c (Bld) [Mass fraction]8.1 % Critically high4.5-6.2The [facility] HospitalComformerly [facility] on above:Performed By: #### A1C ####[facility] [address] [address]Dr. Marcella AyalaID PROFILEon 62-28-4559CJCM-HDL RATIO NORMSAultman Alliance Community HospitalComment on above:Result Comment: 3.3 - 4.4 LOW RISK 4.4 - 7.1 AVERAGE RISK 7.1 - 11.0 MODERATE RISK >11.0 HIGH RISKPerformed By: #### CRP, URIC, LIPID, CMP #### [facility] [address] [address] [address] Marcella CortesCholesterol [Mass/Vol]187 mg/dLNormal<=200[facility] Comment on above:Performed By: #### CRP, URIC, LIPID, CMP #### [facility] [address] [place] [address] Dr. Marcella CortesCholesterol in HDL [Mass/Vol]44 mg/lLIqxihb21-63IblSt. John Of God HospitalComment on above:Performed By: #### CRP, URIC, LIPID, CMP #### [facility] [address] [place] [address] Dr. Marcella CortesCholesterol in LDL [Mass/Vol]97.0 mg/dLPike Community HospitalComment on above:Performed By: #### CRP, URIC, LIPID, CMP #### [facility] [address] [place] [address] Dr. Marcella Raiesterblake.total/Cholesterol in HDL [Mass ratio]4.3 {ratio} NormalSt. John Of God HospitalComment on above:Performed By: #### CRP, URIC, LIPID, CMP #### [facility] [address] [place] [address] Dr. Marcella AppiahL NORMAL> or = 60 mg/dl - LOW CARDIOVASCULAR RISK <40 mg/dl - HIGH CARDIOVASCULAR RISKPike Community HospitalComment on above:Performed By: #### CRP, URIC, LIPID, CMP #### [facility] [address] [place] [address] Dr. Marcella CortesLDL CALC NORMALSEE [facility] Hospital ToledoComment on above:Result Comment: <100 mg/dl OPTIMAL 100 - 129 mg/dl NEAR OR ABOVE OPTIMAL 130 - 159 mg/dl BORDERLINE HIGH 160 - 189 mg/dl HIGH >190 mg/dl VERY HIGH Performed By: #### CRP, URIC, LIPID, CMP #### [facility] [address] [address] [address] Marcella CortesTriglyceride [Mass/Vol]230 mg/dLCritically high<=150The [facility] Health Systemment on above:Performed By: #### CRP, URIC, LIPID, CMP #### [facility] [address] [address] [address] Marcella CortesVLDL CALC46.0 mg/dLNormalThe [facility] HospitalComment on above: Performed By: #### CRP, URIC, LIPID, CMP #### [facility] [address] [place] [address] Dr. Marcella Serrano 14(COMP METB)on 28-08-0236Tivlmym [Mass/Vol]3.8 g/dLNormal 3.4-5.0The [facility] HospitalComment on above:Performed By: #### CRP, URIC, LIPID, CMP #### [facility] [address] [place] [address] Dr. Marcella CortesAlbumin/Globulin [Mass ratio]0.9 {ratio}NormalThe [facility] HospitalComment on above:Performed By: #### CRP, URIC, LIPID, CMP #### [facility] [address] [place] [address] Dr. Marcella Guadarrama [Catalytic activity/Vol]46 U/SUtjlam86-350Qrh [facility] HospitalComment on above:Performed By: #### CRP, URIC, LIPID, CMP #### [facility] [address] [place] [address] Dr. Marcella Ahn [Catalytic activity/Vol]29 U/GPjbzbc76-67Sje [facility] Systemment on above:Performed By: #### CRP, URIC, LIPID, CMP #### [facility] [address] [place] [address] Dr. Marcella Wade gap [Moles/Vol]16.2 mmol/LNormalThe [facility] Comment on above:Performed By: #### CRP, URIC, LIPID, CMP #### [facility] [address] [address] [address] Marcella CortesAST [Catalytic activity/Vol]20 U/CGbcgex90-06Jac [facility] HospitalComment on above:Performed By: #### CRP, URIC, LIPID, CMP #### [facility] [address] [address] [address] Marcella CortesBilirubin [Mass/Vol]0.4 mg/dLNormal0.2-1.0[facility] Comment on above:Performed By: #### CRP, URIC, LIPID, CMP #### [facility] [address] [place] [address] Dr. Marcella CortesCalcium [Mass/Vol]9.2 mg/dLNormal8.5-10.1The [facility] Comment on above:Performed By: #### CRP, URIC, LIPID, CMP #### [facility] [address] [place] [address] Dr. Marcella CortesChloride [Moles/Vol]98 mmol/DZxokkf39-251Ujg [facility] Comment on above:Performed By: #### CRP, URIC, LIPID, CMP #### [facility] [address] [place] [address] Dr. Marcella CortesCO2 [Moles/Vol]26.1 mmol/FLygasc17.0-32.0[facility] Comment on above:Performed By: #### CRP, URIC, LIPID, CMP #### [facility] [address] [place] [address] Dr. Marcella CortesCreatinine [Mass/Vol]0.84 mg/dLNormal0.55-1.02The [facility] HospitalComment on above:Performed By: #### CRP, URIC, LIPID, CMP #### [facility] [address] [place] [address] Dr. Marcella Garner-AF DJIBOUTIAN>60Normal>=60The [facility] HospitalComment on above:Performed By: #### CRP, URIC, LIPID, CMP #### [facility] [address] [place] [address] Dr. Yilan ChangEGFR-NON AF DJIBOUTIAN>60Normal>=60The [facility] HospitalComment on above:Performed By: #### CRP, URIC, LIPID, CMP #### [facility] [address] [address] [address] Marcella CortesGlobulin (S) [Mass/Vol]4.0 g/dLNormDoctors HospitalComment on above:Performed By: #### CRP, URIC, LIPID, CMP #### [facility] [address] [address] [address] Marcella CortesGlucose [Mass/Vol]163 mg/dLCritically vkfm03-094Res [facility] HospitalComment on above:Performed By: #### CRP, URIC, LIPID, CMP #### [facility] [address] [place] [address] Dr. Marcella CortesPotassium [Moles/Vol]4.3 mmol/LNormal3.5-5.1The [facility] Comment on above:Performed By: #### CRP, URIC, LIPID, CMP #### [facility] [address] [place] [address] Dr. Marcella CortesProtein [Mass/Vol]7.8 g/dLNormal6.4-8.2The [facility] Comment on above:Performed By: #### CRP, URIC, LIPID, CMP #### [facility] [address] [place] [address] Dr. Marcella CortesSodium [Moles/Vol]136 mmol/JMpvgsr385-230Zdi [facility] Comment on above:Performed By: #### CRP, URIC, LIPID, CMP #### [facility] [address] [place] [address] Dr. Marcella CortesUrea nitrogen [Mass/Vol]15.0 mg/dLNormal7.0-18.0The [facility] HospitalComment on above:Performed By: #### CRP, URIC, LIPID, CMP #### [facility] [address] [place] [address] Dr. Marcella CortesUrea nitrogen/Creatinine [Mass ratio]17.9 mg/mgNoBlanchard Valley Health System Blanchard Valley HospitalComment on above:Performed By: #### CRP, URIC, LIPID, CMP #### [facility] [address] [place], [place] [address] Dr. Marcella CortesURIC ACID SERUMon 23-53-2109Mdznh [Mass/Vol]7.4 mg/dLCritically high2.6-6.0[facility] HospitalComment on above:Performed By: #### CRP, URIC, LIPID, CMP #### [facility] [address] [place], [place] [address] Dr. Marcella CortesCT CARDIAC SCORINGon 53-02-0406FJ CARDIAC SCORINGAddendum Begins Patient Name: DAKSHA CORLEY [...] unspecified complications . COMPARISON: None. ACCESSION NUMBER(S): [id number] ORDERING CLINICIAN: TERRI ROJO TECHNIQUE: Using prospective [...] agarwal al. JACC 2015 (http://dx.doi.org/10.1016/j.j acc.2015.08.035) Reading Gospel Singer: Dr. Jewel Vincent, Date: 03/18/2022 10:08 am Electronically signed by: MACO LUNA MDTemple University Health SystemUS BREAST LEFT LIMITEDon 06-47-3530OJ BREAST LEFT LIMITEDPatient: DAKSHA CORLEY Exam Date: 01/13/2022 : 1950 Gender:F Ordering : DR TERRI ROJO . Admission #: [id number] Family : Order #: [id number] CLICK HERE TO VIEW EXAM RADIOLOGY REPORT [...] by: Placido Forde M.D. on 01/13/2022 at 10:54[facility] HospitalMG MAMM SCREEN 3D CAMERON CADon 08-43-7407NE MAMM SCREEN 3D CAMERON CADPatient: DAKSHA CORLEY Exam Date: 01/08/2022 : 1950 Gender:F Ordering : DR TERRI ROJO . Admission #: [id number] Family : Order #: [id number] CLICK HERE TO VIEW EXAM RADIOLOGY REPORT [...] Treatments None Family Cancers None LOCATION: [facility] BREAST COMPOSITION: Heterogeneously dense,which may obscure [...] by: Placido Forde M.D. on 01/08/2022 at 15:21[facility] HospitalXR DEXA BONE DENSITYon 84-32-2433XB DEXA BONE DENSITYEXAMINATION: XR DEXA BONE DENSITY, [...] Electronically authenticated by: PLACIDO FORDE Date: 2022-01-08 11:07[facility] Vital Signs Date TimeVital SignValuePerforming RhrmzerclXqjgagcw40-94-9190 10:25-0400Body vvufqo343.6 cmSulma Weston MD Work Phone: [phone]6CoxHealthDmmxhywoew04-34-8419 10:25-0400Body mass index (BMI) [Ratio]33.41 kg/p2IsxwomSulma Weston MD Work Phone: [phone]05-27-2025 10:25-0400Body nvdbul28.89 kgSulma Weston MD Work Phone: [phone]4CoxHealthXkkhvrwaql91-97-3219 10:25-0400Diastolic blood fypwvfrb43 mm[Hg]Sulma Weston MD Work Phone: [phone]7CoxHealthNdgzhbahhx78-31-9621 10:25-0400Heart rate88 /min Sulma Weston MD Work Phone: CoxHealthAnqlhyeixn86-13-8031 10:25-0400Systolic blood qcdkuxjd63 mm[Hg]Sulma Weston MD Work Phone: [phone]6CoxHealthWmthjhrcnf96-00-4315 09:21-0400Body .6 cmSulma Weston MD Work Phone: [phone]4CoxHealthVxubdnzzan22-21-4447 09:21-0400Body mass index (BMI) [Ratio]33.41 kg/u1RvagsnSulma Weston MD Work Phone: CoxHealthNjbfuyeekq22-90-2691 09:21-0400Body .89 kgSulma Weston MD Work Phone: CoxHealthSkgkbnyszn57-69-5391 09:21-0400Diastolic blood hpsnuxvc50 mm[Hg]Sulma Weston MD Work Phone: CoxHealthZwuhqkyfck08-62-6285 09:21-0400Heart rate96 /min Sulma Weston MD Work Phone: CoxHealthTqqciuqmrb01-41-2731 09:21-0400Systolic blood ylacflpq168 mm[Hg]Sulma Weston MD Work Phone: CoxHealthCzdvbhzxbz25-06-7088 10:00-0500Body jbyogc186.64 cmJustin Lillian Other [employer] Other 12-11-2023 10:00-0500Body mass index (BMI) [Ratio] 37.12 kg/j3Yjcczh Lillian Other [employer] Other 12-11-2023 10:00-0500Body .33 kgJustin Lillian Other [employer] Other 08-28-2023 11:15-0400Body .64 cmJustin Lillian Other [employer] Other 08-28-2023 11:15-0400Body mass index (BMI) [Ratio] 37.12 kg/y2Xjoffb Lillian Other [employer] Other 08-28-2023 11:15-0400Body rrlthy739.33 kgJustin Lillian Other [employer] Other 07-05-2023 11:15-0400Body vewrpz069.64 cmJustin Lillian Other [employer] Other 07-05-2023 11:15-0400Body mass index (BMI) [Ratio] 37.12 kg/p2Pgcxbs Lillian Other [employer] Other 07-05-2023 11:15-0400Body dqjmca762.33 kgJustin Lillian Other [employer] Other 05-24-2023 11:15-0400Body .64 cmJustin Lillian Other [employer] Other 03-15-2023 12:00-0400Body qdlaio509.64 cmJustin Lillian Other [employer] Other 03-15-2023 12:00-0400Body mass index (BMI) [Ratio] 37.12 kg/u8Cdidti Lillian Other [employer] Other 03-15-2023 12:00-0400Body bylhan368.33 kgJustin Lillian Other [employer] Other 03-01-2023 11:30-0500Body dbvynd459.64 cmJustin Lillian Other [employer] Other 03-01-2023 11:30-0500Body mass index (BMI) [Ratio] 37.93 kg/x1Yxewgw Lillian Other [employer] Other 03-01-2023 11:30-0500Body lpiibz186.6 kgJustin Lillian Other [employer] Other Encounters Encounter DateEncounter TypeCare ProviderFacilityStart: 68-72-0931ddsmzcwlxxVeis L SchwabFacility:FT BellevueStart: 07-22-2025 End: 75-54-1275dtolqotdwtQszccrmJacob Gonzalez MDFacility: [place] Start: 06-27-2025 End: 80-47-7703unbdjvzmjwQjdpnf E. RossFacility:FT [place]: 04-10-2025 End: 78-73-8016Vqucyw outpatient visit 25 minutesNancy Corrales MD Work Phone: [facility] Rita's HospitalComment on above:Right epiretinal membrane (Primary Dx); Type 2 diabetes mellitus without complication, without long-term current use of insulin ([facility]); Nuclear sclerotic cataract of both eyesStart: 04-10-2025 End: 94-32-2306vgpzkukdvnRtqa Ophth ImagingProMedica Retina, A Department of [facility] Rita's HospitalComment on above:Right epiretinal membrane; Type 2 diabetes mellitus without complication, without long-term current use of insulin ([facility])Start: 03-28-2025 End: 76-91-0760Wgq Drop offMary L Tigist [facility] Start: 03-28-2025 End: 26-12-8496fjpxrdbbhbREW Mary L SchwabFacility:FT ueStart: 02-19-2025 End: 25-33-8998Avozmi flowsheetSulma Weston MD Work Phone: n[facility] CI ENTStart: 02-19-2025 End: 94-79-1325Rtwjng flowsheetSulma Weston MD Work Phone: [facility] CI ENTStart: 02-19-2025 End: 98-43-7618Bjvwib outpatient visit 15 minutesSulma Weston MD Work Phone: [facility] CI ENTComment on above:Sensorineural hearing loss (SNHL), bilateral (Primary Dx)Start: 02-19-2025 End: 29-11-1919htnrvtkwjjQTMHFR H TIMMISNot AvailableStart: 01-30-2025 End: 32-60-4350Kybaavirene Weston MD Work Phone: noms CI ENTStart: 01-30-2025 End: 14-29-7353Pphwicyesenia Weston MD Work Phone: noMS CI ENTStart: 01-30-2025 End: 28-50-8828onccxiuficMTXDQQ Wayne Gruber AvailableStart: 01-30-2025 End: 46-29-2318Pualnk outpatient new 30 minutesSulma Weston MD Work Phone: noms CI ENTComment on above:Bilateral tinnitus (Primary Dx); Bilateral impacted cerumenStart: 10-25-2024 End: 76-82-3925Ueqtti outpatient new 45 minutesStenedelia Corrales MD Work Phone: [facility] Physicians RetinaComment on above:Right epiretinal membrane (Primary Dx); Nuclear sclerotic cataract of both eyes; Type 2 diabetes mellitus without complication, without long-term current use of insulin ([facility])Start: 10-25-2024 End: 52-60-1613Jmxfeefkrzzjo ImagingPpww Ophth ImagingProMedica Physicians RetinaComment on above:Other specified retinal disordersStart: 10-02-2024 End: 52-03-9599stgjdxpbtwRmatun E. RossFacility:FT FM BellevueStart: 09-28-2024 End: 03-91-0925Aom Drop Melanie Kelly [facility] Start: 09-28-2024 End: 47-76-9073majlhsssdnRzgeiu E. RossFacility:[facility] BellevueStart: 09-20-2024 End: 41-60-9180Zanmusspd department patient visitDAVID GEORGIANA RIVERSBear Lake Memorial Hospital CenterStart: 06-26-2024 End: 38-56-8078jhejbwcmrhCqfbcq E. RossFacility:FT BellevueStart: 03-27-2024 End: 78-26-2979ehxjpfywsoMteqcp E. RossFacility:FT BellevueStart: 01-03-2024 End: 50-95-9541xzeywhlgqrJedgtl E. RossFacility:[facility] BellevueStart: 09-05-2023 End: 07-64-7709jatbkkjavgYjixgw Lillian Other [facility] Other Start: 70-35-5909Jtnfxt outpatient visit 15 minutes Atif KelxenaFPG [facility] OrthopedicsStart: 05-23-2023 End: 17-25-7261bbaqdmzjnuXooghq Lillian Other [facility] Other Start: 68-63-3611Axpacj outpatient visit 15 minutes Atif KelleyFPG [facility] OrthopedicsStart: 03-30-2023 End: 32-14-3213yapavrtnafAlixlc Lillian Other [facility] Other Start: 60-94-1192Xqjnda outpatient visit 15 minutes Atif KelleyFPG [facility] OrthopedicsStart: 02-16-2023 End: 19-37-7448uqbpjbhtmqAyjmjn Lillian Other [facility] Other Start: 07-83-4394Mqmkmc outpatient visit 15 minutes Atif KelleyFPG [facility] OrthopedicsStart: 01-19-2023 End: 67-28-2609xmzrvhedbpMqbfuvvt [place] Other [facility] Other Start: 91-09-0818Agazds outpatient visit 15 minutes Ana Maria GlasgowFPG [facility] OrthopedicsStart: 85-90-2947bighsoymioHL KIM E KNIGHT .Facility:X8Boqze: 12-22-2022 End: 04-18-5988khbpbjhfucPymute Kelley Other [facility] Other Start: 96-04-4218Drkxsj outpatient visit 15 minutes Atifdarian [facility]aya OrthopedicsStart: 51-37-0132Hqcxrwpoi encounterJustin DionnaG [facility] OrthopedicsStart: 12-08-2022 End: 02-96-6716ftgxcciglxBhhgxk Lillian Other [facility] Other Start: 64-73-7518Cavjna follow up visit related to original pxAtif Zelaya OrthopedicsStart: 11-24-2022 End: 88-55-1192bulhtzcafxRmrvsq Kelley Other [employer] Other Start: 79-51-8797Tqfwsw outpatient new 30 minutes Atif Zia [facility] OrthopedicsStart: 11-21-2022 End: 97-20-6895ohjmqiuuykMU KIM E KNIGHT .Facility:Y3Hmneq: 09-07-2022 End: 25-68-1036lktxctzfmwVU KIM E KNIGHT .Facility:E5Onfhq: 01-13-2022 End: 75-12-1325smzhptyftmXB KIM E KNIGHT .Facility:N4Hbenw: 01-08-2022 End: 51-54-0455mbabpnlhupIQ KIM E KNIGHT .Facility:H1 Procedures DateProcedureProcedure DetailPerforming ClinicianStart: 41-36-9819Dqhvxxrlqvii ophthalmic imaging Sandy Corrales MD Work Phone: Start: 26-02-6601Bsronkdh retinal eye examSsp Corrales MD Work Phone: Start: 10-25-2024 End: 66-13-6734Kbclubdcefoy ophthalmic imaging Sandy Corrales MD Work Phone: Start: 24-79-5974Nmnccgxq retinal eye examSsp Corrales MD Work Phone: Start: 68-90-9630Nlfpccgoeb and retrograde pyelography Rimma Kelly Comment on above:rightAbdominal hysterectomySalynette Kelly AppendectomySanatachael Audie ColonoscopyRimma Kelly Comment on above:2009 normalGallbladder structure (body structure)Rimma Kelly H/O: tubal ligationSalynette Kelly Partial resection of colonRimma Kelly Repair of hipSdione Kelly Compatj on above:leftTonsillectomy and adenoidectomy Rimma Kelly Total knee replacementSdione Kelly Comment on above:rightleft Plan of Treatment DateCare ActivityDetailAuthorStart: 14-94-0704Ywwzoevr screeningDiabetic Ophthalmology ExamUpper Valley Medical Center SystemStart: 12-83-4366Ydrmlep Screening Tobacco ScreeningUpper Valley Medical Center SystemStart: 02-00-2407Pdqqdcdw screening Diabetic Ophthalmology ExamProPremier Health [facility] SystemStart: 10-11-2025 End: 51-04-0419Qthouem encounter frqsmozra36/16/2026 2:10 PM EST Office Visit [facility] A Department of [facility] [address] [place] [phone] Nancy Corrales MD [address] [place] [address] [facility]ertart: 83-18-8410MncsogjffPage Memorial HospitalStart: 04-10-2025 End: 60-57-0777Ixxyfjk encounter mfkhyzsgg45/16/2025 2:30 PM EDT Office Visit [facility] [address] [facility] [address] [place] [phone] Nancy Corrales MD [address] [facility] [address] [place] [address] [facility] RetinaStart: 02-19-2025 End: 38-21-2618Qhqqbhr encounter procedureNOMS CI ENTComment on above:Arrived Start: 06-08-6401WLBCM-19 Vaccine ( season)COVID-19 Vaccine ( season)[facility] SystemStart: 47-13-5255Cpyhbwacy vaccination Influenza VaccineProPremier Health [facility] SystemStart: 73-51-6802Tyfx Risk ScreeningFall Risk ScreeningProPremier Health [facility] SystemStart: 83-02-1912Wqezzedhyszrjw of varicella zoster vaccineZoster (Shingles) Vaccine (1 of 2)[facility] SystemStart: 60-27-7285Vnnzivqilffi Vaccine: 65+ Years (1 of 1 - PCV) Pneumococcal Vaccine: 65+ Years (1 of 1 - PCV)[facility]OM[facility] HealthcareStart: 1990 Screening for malignant neoplasm of breastMammogramNOMS HealthcareStart: 82-42-4981WVfP,Tdap and Td Vaccines (1 - Tdap)DTaP,Tdap and Td Vaccines (1 - Tdap)[facility] SystemStart: 52-63-6752Lrjlc BMI ScreeningAdult BMI ScreeningProPremier Health [facility] SystemStart: 89-77-1381Bqdwjxxn foot examination Diabetic Foot ExamProPremier Health [facility] SystemStart: 61-67-6958Rikkeudgbu Screening Depression ScreeningUpper Valley Medical Center SystemStart: 41-96-8361Shvzgzw Screening Tobacco ScreeningProPremier Health [facility] SystemStart: 58-08-8785Kvbvelhnt for malignant neoplasm of colonNOMS Healthcare Immunizations Immunization DateImmunizationNotesCare PporgamzHpfvuiua58-14-5334CAOW-ZgR-0 (COVID-19) mRNAMUL.ORD!y01489Pdfwlk Ross 172-9094Kmzqoo-NzktuMercy Health Allen Hospital 78-58-6564bvmmagjpe virus vaccine, unspecified formulationSdione Kelly [phone]-EvauzMercy Health Allen Hospital 70-12-0517PHRA-CoV-2 mRNA (zgyevohjheh-vfsn-hijhnoo) vaccineSdione Kelly 321-5506Vcgzug-KswfgMercy Health Allen Hospital 62-94-9175tdzypnrpv virus vaccine, unspecified formulationSdione Kelly [phone]-FfaiqMercy Health Allen Hospital 44-93-5788NMME-CoV-2 (COVID-19) mRNA BNT-162b2 vaSvetlana Kelly 306-0818Tantch-WpzfiMercy Health Allen Hospital 02-25-7853PLXG-CoV-2 (COVID-19) mRNA BNT-162b2 Edilma Kelly [phone]-KrmuaMercy Health Allen Hospital Comment on above:Result Comment: 2023-02-01: ODC4287-09-3109LXVA-XdQ-1 (COVID- 19) mRNA BNT-162b2 Edilma Kelly [phone]-ZxwtoMercy Health Allen Hospital Comment on above:Result Comment: 2023-02-01: ETW13OMIYQSU: Highlighted row has not occurred!91-59-2887obngrycak virus vaccine, unspecified formulationSdione Kelly [phone]-IckijMercy Health Allen Hospital Payers DatePayer CategoryPayerPolicy [id number] Health [id number] Care Other (unspecified)[facility] Member Subscriber Plan / Payer (Effective 2019-Present) Name: Daksha Corley Relation to Subscriber: Self Name: Daksha Corley Payer ID: [id number] (NAIC) Group ID: [id number] Type: Not on file Address: [facility] [address] [place] [id number] [id number] 1960Medicare [id number] [id number] 2.160.2.94724[id number] 2.0.1.536663.3.5[id number] 2.16840.1.303721.3.57[id number] 2.16840.1.872063.3.57[id number] 2.16840.1.193850.3.57[id number] 2.16840.1.565409.3.57[id number] 2.16.840.1.011219.3.57[id number] 2.16840.1.319407.3.57[id number] 2.16840.1.767289.3.57[id number] 2.16840.1.629510.3.57[id number] 2.16.840.1.432512.3.57[id number] 2.16.840.1.310180.3.57[id number] 2.16840.1.070147.3.579.[id number] 2.16840.1.060409.3.57[id number] 2.16840.1.450416.3.579.[id number] 2.16840.1.064794.3.57[id number] 2.16840.1.450017.3.57[id number] 2.16840.1.212432.3.579.[id number] 2.16840.1.550425.3.579.2.48[id number] 2.16840.1.957621.3.579.[id number] 2.16840.1.377032.3.579.[id number] 2.16840.1.292627.3.579.2.1[id number] 2.16840.1.662452.3.579.[id number] 2.16840.1.894773.3.579.[id number] 2..840.1.673424.3.57[id number] 2..840.1.222415.3.579.[id number] 2..840.1.645701.3.579.2.196 Social History DateTypeDetailFacilityUnknown if ever smokedNort Alloptic Other Start: 11-06-2020 End: 99-84-4893Ojw Assigned At [facility] Hospitaltart: 07-16-2020 End: 96-63-1031Klniths smoking statusNever smoked tobacco (finding)[facility] BellevueComment on above:denies use.Tobacco smoking statusNeverCommunity Regional Medical Center BellueComment on above:denies use.Start: 07-16-2020 End: 32-73-0083Pkwqeht use and exposureSmokeless tobacco non-userUpper Valley Medical Center SystemStart: 10-26-2024 End: 47-00-1841Xdqdcmraw beverage intakeEx-drinker (finding)[facility] [employer] SystemStart: 11-06-2020 End: 30-95-4825Qqjdvut of Social functionUpper Valley Medical Center SystemStart: 08-11-5413Qdo assigned at [facility] centerNot on [facility] SystemStart: 05-01-2015 End: 32-72-0069JbkMgqlag (finding)[facility] SystemTobacco smoking status NHISTobacco smoking consumption unknownNOMS HealthcareSexual OrientationPremier Health [facility] Medical Equipment Procedure CodeEquipment CodeEquipment Original TextEquipment IdentifierDatesMisc DME Prescription, See Instructions, 100 strip(s), 3, True metrix test strips Test once a day Dx E 11.9, [employer] [address], Supply, 167.6, cm, 02/02/23 13:51:00 EDT, Height/Length Dosing, 111.4, kg, 02/02/23 13:51:00 EDT, Weight DosingStart: 99-92-1337Fcuu DME Prescription, See Instructions, 100 lancet(s), 3, Ultra thin unilet lancets use to test blood sugars once a day Dx E11.9, [employer] [address], Supply, 167.6, cm, 02/02/23 13:51:00 EDT, Height/Length Dosing, 111.4, kg, 02/02/23 13:51:00 EDT, Weight DosingStart: 09-72-0795YOGH STRIPS AND LANCETS, 1, SubCutaneous, Daily, 100 EA, 3, [facility] [employer] [facility], Supply, 167.6, cm, 02/02/23 13:51:00 EDT, Height/Length Dosing, 111.4, kg, 02/02/23 13:51:00 EDT, Weight DosingStart: 05-06-8095Hnjd DME Prescription, See Instructions, 100 strip(s), 3, True metrix test strips Test once a day Dx E 11.9, [facility] [employer] [facility], Supply, 167.6, cm, 02/02/23 13:51:00 EDT, Height/Length Dosing, 111.4, kg, 02/02/23 13:51:00 EDT, Weight DosingStart: 76-47-9484Zbmr DME Prescription, See Instructions, 100 lancet(s), 3, Ultra thin unilet lancets use to test blood sugars once a day Dx E11.9, [facility] [employer] [facility], Supply, 167.6, cm, 02/02/23 13:51:00 EDT, Height/Length Dosing, 111.4, kg, 02/02/23 13:51:00 EDT, Weight DosingStart: 59-68-1613YTZR STRIPS AND LANCETS, 1, SubCutaneous, Daily, 100 EA, 3, [employer] [facility] [employer] [facility], Supply, 167.6, cm, 02/02/23 13:51:00 EDT, Height/Length Dosing, 111.4, kg, 02/02/23 13:51:00 EDT, Weight DosingStart: 05-23-2023 Clinical Notes 02-24-2019 to 04-13-2025 Note Date & WxdeHusuEjnykjez14-37-3711 NoteRight Eye Quality was good. Progression has been stable. Findings include abnormal foveal contour, epiretinal membrane, foveal thickening. Follow up actions include continue present management. Left Eye Quality was good. Progression has been stable. Findings include normal foveal contour. Follow up actions include continue present management.MANUALLY TRANSCRIBED RFPNFKM43-31-4133 NoteRight Eye Quality was good. Progression has been stable. Findings include abnormal foveal contour, epiretinal membrane, foveal thickening. Follow up actions include continue present management. Left Eye Quality was good. Progression has been stable. Findings include normal foveal contour. Follow up actions include continue present management.MANUALLY TRANSCRIBED KMTGKQM12-32-4641 History of Present illness Narrative* Nancy Corrales [...] a past medical history of Diabetes mellitus ([facility]) and Hypertension. She has a past [...] complication, without long-term current use of insulin ([facility]) 3. Nuclear sclerotic cataract of both eyes ASSESSMENT/PLAN 1. Right epiretinal membrane (Primary) RIGHT EYE-stable -Criteria for surgical intervention discussed. -Continue observation -Monitor amsler grid -Testing done today reviewed with patient. - OCT, Retina - OU - Both Eyes; Future 2. Type 2 diabetes mellitus without complication, without long-term current use of insulin ([facility]) BOTH EYES- no ocular manifestation. -Last [...] MD by ЕЛЕНА Shane documented in this encounterRockingham Memorial Hospital10sec05-27-2025 History of Present illness Narrative* Sulma Weston [...] hearing loss (SNHL), bilateral documented in this encounterCoxHealthWawdxmmiin40-37-6778 History of Present illness Narrative* Sulma Weston [...] debrided. F/U after audio documented in this encounterCoxHealthUecqmtpanw32-69-6575 NoteRight Eye Quality was good. Progression has no prior data. Findings include abnormal foveal contour, epiretinal membrane, foveal thickening. Plan: observe & monitor, reviewed testing with the patient. Left Eye Quality was good. Progression has no prior data. Findings include normal foveal contour. Plan: observe & monitor, reviewed testing with the patient.MANUALLY TRANSCRIBED AGMVEBN09-66-4061 NoteRight Eye Quality was good. Progression has no prior data. Findings include abnormal foveal contour, epiretinal membrane, foveal thickening. Plan: observe & monitor, reviewed testing with the patient. Left Eye Quality was good. Progression has no prior data. Findings include normal foveal contour. Plan: observe & monitor, reviewed testing with the patient.MANUALLY TRANSCRIBED TOYENGV97-51-7408 NoteRight Eye Progression has no prior data. [...] monitor, reviewed testing with the patient.MANUALLY TRANSCRIBED LJFATPO17-32-5478 NoteRight Eye Progression has no prior data. [...] monitor, reviewed testing with the patient.MANUALLY TRANSCRIBED YUICMCA62-29-9301 History of Present illness Narrative* Nancy Corrales MD - 10/25/2024 2:20 PM EST Daksha Corley had concerns including Diabetic Eye Exam. 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 Patient states [...] a past medical history of Diabetes mellitus ([facility]) and Hypertension. She has a past [...] complication, without long-term current use of insulin ([facility]) ASSESSMENT/PLAN 1. Right epiretinal membrane (Primary) [...] complication, without long-term current use of insulin ([facility]) BOTH EYES- no ocular manifestation. -Last [...] both accurate and complete. documented in this encounterWooster Community Hospital10-01-2024 NotePatient Education Nutrition BMI for Adults [...] for Disease Control and Prevention: cdc.gov ? Indian Heart Association: heart.org ? National Heart, Lung, and Blood [place]: nhlbi.nih.gov This information is not intended to replace advice given to you by your health care provider. Make sure you discuss any questions you have with your health care provider. Document Revised: 06/02/2023 Document Reviewed: 05/26/2023 [employer] Patient Education ? [address] [employer] 03-27-2024 NotePatient Education Nutrition BMI for Adults [...] numbers. This can be done either in [place]adian (U.S[place] or metric measurements. Note that charts and online BMI calculators are available to help you find your BMI quickly and easily without having to do these calculations yourself. To calculate your BMI in [place]adian ([place] measurements: 1. Measure your weight in [...] for Disease Control and Prevention: www.cdc.gov ? Indian Heart Association: www.heart.org ? National Heart, Lung, and Blood [place]: www.nhlbi.nih.gov Summary ? Body mass index (BMI) is a number that is calculated from a person's weight and height. ? BMI may help estimate how much of a person's weight is composed of fat. BMI can help identify those who may be at higher risk for certain medical problems. ? BMI can be measured using Grenadian measurements or metric measurements. ? BMI charts are used to identify whether you are underweight, normal weight, overweight, or obese. This information is not intended to replace advice given to you by your health care provider. Make sure you discuss any questions you have with your health care provider. Document Revised: 06/04/2020 Document Reviewed: 04/11/2020 [employer] Patient Education ? [address] [employer] 09-05-2023 Evaluation note* Encounter Date Diagnosis Assessment [...] for refills if the medication is helping. [employer] Other 08-28-2023 Evaluation note* Encounter Date Diagnosis [...] (ICD-10 - M76.61) Apr,Neuropathy (ICD-10 - G62.9) [employer] Other 07-05-2023 Evaluation note* Encounter Date Diagnosis [...] (ICD-10 - M76.61) Mar,Neuropathy (ICD-10 - G62.9) [employer] Other 05-24-2023 Evaluation note* Encounter Date Diagnosis [...] as documented in the electronic medical record. [employer] Other 04-26-2023 Evaluation note* Encounter Date Diagnosis [...] in the office today and providing supervision. [employer] Other 03-29-2023 Evaluation note* Encounter Date Diagnosis [...] exercise. 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 Continue with use of boot at this time. Continue with use of walker as needed. A prescription for physical therapy was provided today. [employer] Other 03-15-2023 Evaluation note* Encounter Date Diagnosis [...] understanding and is agreeable to treatment plan. [employer] Other 03-01-2023 Evaluation note* Encounter Date Diagnosis [...] in office today. [facility] and history have been reviewed. At [...] as documented in the electronic medical record. [employer] Other 06-01-2019 History general Narrative - Reported* Type Description Date Medical History Borderline Type 2 Diabetes Medical HistoryHypertensionMedical Historykidney Stones 02/2019Surgical History Partial Bowel Xdjmkox27 years agoSurgical HistoryTonsil & AdnoidsSurgical XxwivksTjqxapiegcvt6293Tsaakeda HistoryHysterectomy with Bladder Bvnnxlgbin3597 Surgical HistoryTubal LigationSurgical HistoryBilateral Knee Bozaesyhwub8302 Surgical HistoryLTHAHospitalization HistoryPneumonia09/2017 [employer] Other Evaluation + Plan note Future Appointments Appointment Date:10/02/2024 11:30:00 AM Scheduled Provider:[facility]im[facility] Type: Open Appointment Date:06/27/2025 02:30:00 PM Scheduled Provider: [facility] Type: Medicare Wellness Subsequent Future Scheduled Tests Radiology* US Aorta 01/03/24 [facility] Evaluation + Plan note Future Appointments Appointment Date:06/27/2025 02:40:00 PM Scheduled Provider:Mary Trotter Location:[facility] Appointment Type: Open [facility] Evaluation noteNo [employer] Other Evaluation note* Diagnosis Right epiretinal membrane- Primary Macular puckering of retina Nuclear sclerotic cataract of both eyes Senile nuclear sclerosis Type 2 diabetes mellitus without complication, without long-term current use of insulin ([facility]) Other specified retinal disorders Other specified retinal disorders documented in this encounter [facility] SystemEvaluation note* Diagnosis Other specified retinal disorders documented in this encounter [facility] SystemEvaluation note* Diagnosis Bilateral tinnitus- Primary Bilateral impacted cerumen Impacted cerumen documented in this encounter [facility] HealthcareEvaluation note* Diagnosis Sensorineural hearing loss (SNHL), bilateral- Primary documented in this encounter [facility] HealthcareEvaluation note* Diagnosis Right epiretinal membrane- Primary Macular puckering of retina Type 2 diabetes mellitus without complication, without long-term current use of insulin ([facility]) Nuclear sclerotic cataract of both eyes Senile nuclear sclerosis Right epiretinal membrane Macular puckering of retina Type 2 diabetes mellitus without complication, without long-term current use of insulin ([facility]) documented in this encounter [facility] SystemEvaluation [facility]* Diagnosis Right epiretinal membrane Macular puckering of retina Type 2 diabetes mellitus without complication, without long-term current use of insulin ([facility]) documented in this encounter ProMKittson Memorial Hospital SystemHospital course Narrative No data available for this section [facility] Hospital Discharge instructions No data available for this section [facility] Instructions* Attachments The following attachments cannot be sent through Care Everywhere. * Cataracts (Grenadian) documented in this encounterProMediil Health SystemInstructionsNot on file documented in this encounterProWashington County Hospital Health SystemInstructionsNot on file documented in this encounterProMediBrown Memorial Hospital SystemInstructionsNot on file documented in this encounterProPremier Health [facility] SystemProgress note No data available for this section [facility] Summary Purpose Family History No [...] section and content) DATE CREATED AUTHOR 03/20/2022 [facility] DATE CREATED AUTHOR AUTHOR'S ORGANIZ ATION 12/31/2022 [facility] DATE CREATED AUTHOR AUTHOR'S ORGANIZ ATION 10/05/2024 [facility] DATE CREATED AUTHOR AUTHOR'S ORGANIZ ATION 10/06/2024 [facility] DATE CREATED AUTHOR AUTHOR'S ORGANIZ ATION 10/16/2024 [facility] DATE CREATED AUTHOR AUTHOR'S ORGANIZ ATION 10/27/[address] [facility] DATE CREATED AUTHOR AUTHOR'S ORGANIZ ATION 02/22/2025 [facility] DATE CREATED AUTHOR AUTHOR'S ORGANIZ ATION 04/14/2025 [facility] DATE CREATED AUTHOR AUTHOR'S ORGANIZ ATION 07/01/2025 [facility] DATE CREATED AUTHOR AUTHOR'S ORGANIZ ATION 07/02/2025 [facility] DATE CREATED AUTHOR AUTHOR'S ORGANIZ ATION 07/26/2025 [facility] REASON FOR VISIT (unrecogniz ed section and content) ReasonCommentsDiabetic Eye ExamSpecialtyDiagnoses / ProceduresReferred By ContactReferred To ContactOphthalmology Diagnoses Normal retina on examination of eye Carlos Lobato, OD [address] [place] [id number] Phone: tel: fax: Nancy Corrales MD [address] [facility] [address] [place] [address] Phone: tel: fax: Referral IDStatusReasonStart DateExpiration DateVisits RequestedVisits [id number] Specialty Services Required /[id number] ImpactionReasonCommentsTinnitusFollow up audio Dr Bermudez 01/31/25ReasonCommentsRight epiretinal membrane Patient Care team informatio n (unrecognized section and content) Team MemberRelationshipSpecialtyStart DateEnd Date Rimma Kelly MD [address] [facility] [place] [address] PCP - GeneralFamily Medicine10/25/24Team MemberRelationshipSpecialtyStart DateEnd Date Rimma Kelly MD [address] [place] [address] PCP - GeneralFamily Medicine10/25/24Team MemberRelationshipSpecialtyStart DateEnd Date Rimma Kelly MD [address] [place] [address] PCP - GeneralFamily Medicine01/22/25Team MemberRelationshipSpecialtyStart DateEnd Date Rimma Kelly MD [address] [facility] [place] [address] PCP - GeneralFamily Medicine01/22/25Team MemberRelationshipSpecialtyStart DateEnd Date Rimma Kelly MD [address] [place] [address] PCP - GeneralFamily Medicine01/22/25Team MemberRelationshipSpecialtyStart DateEnd Date Rimma Kelly MD [address] [place] [id number] PCP - [facility]10/25/24Team MemberRelationshipSpecialtyStart DateEnd Date Rimma Kelly MD [address] [facility] [place] [address] PCP - [facility]10/25/24 FOR RECORDS PERTAINING TO PATIENTS WHO [...] BE BASED ON THE PRIMARY CLINICAL RECORDS. [facility] [employer] [facility]. provides no warranty or guarantee of the accuracy or completeness of information in this document.
--- NOTE | 2025-08-14 14:17 | PM.CN ---
Consult Note: HPI Data of Consult Patient: known to practice within the last 3 years Consult date: 08/14/25 Requesting Physician: Isi Bernal NP Primary Care Provider: ELISABETH LEA Consult Narrative Reason for consult: right hip pain Narrative: 74yof who presents for evaluation. longstanding right hip pain. imaging reviewed, which shows right hip osteoarthritis. continues in a series of provider directed home exercises >6 weeks, without lasting benefit. uses meloxicam. denies adverse med side effects. Recently underwent right hip injection with less than 50% improvement in pain. cc:: CC: Isi Bernal NP Review of Systems ROS Musculoskeletal Reports: joint pain PFSH PFSH Medical History (Updated 08/14/25 @ 14:19 by Isi Bernal NP) Diabetes ?E11.9 - Type 2 diabetes mellitus without complications (ICD-10) HTN (hypertension) ?I10 - Essential (primary) hypertension (ICD-10) Surgical History Hx of cholecystectomy ?Z90.49 - Acquired absence of other specified parts of digestive tract (ICD-10) History of hip replacement ?Z96.649 - Presence of unspecified artificial hip joint (ICD-10) History of knee replacement ?Z96.659 - Presence of unspecified artificial knee joint (ICD-10) History of hysterectomy ?Z90.710 - Acquired absence of both cervix and uterus (ICD-10) History of tubal ligation ?Z98.51 - Tubal ligation status (ICD-10) History of appendectomy ?Z90.49 - Acquired absence of other specified parts of digestive tract (ICD-10) Hx of tonsillectomy ?Z90.89 - Acquired absence of other organs (ICD-10) Social History Little interest or pleasure in doing things: not at all Feeling down, depressed, or hopeless: not at all Meds Home Medications and Allergies Home Medications ?Medication ?Instructions ?Recorded ?Confirmed ?Type oxycodone-acetaminophen 5 mg-325 1 tab PO Q8H PRN pain 5 days #15 07/29/24 08/05/25 Rx mg tablet (Percocet) tabs gabapentin 300 mg capsule 300 mg PO DAILY 07/23/25 08/05/25 History lisinopril 20 1 tab PO DAILY 07/23/25 08/05/25 History mg-hydrochlorothiazide 12.5 mg tablet meloxicam 15 mg tablet 15 mg PO DAILY 07/23/25 08/05/25 History metformin 500 mg tablet,extended 500 mg PO DAILY 07/23/25 08/05/25 History release 24 hr oxybutynin chloride 5 mg 5 mg PO DAILY 07/23/25 08/05/25 History tablet,extended release 24 hr pantoprazole 40 mg tablet,delayed 40 mg PO DAILY 07/23/25 08/05/25 History release Allergies Allergy/AdvReac Type Severity Reaction Status Date / Time Sulfa (Sulfonamide Allergy Severe Unknown Verified 08/05/25 09:36 Antibiotics) hydromorphone (From Dilaudid) AdvReac Severe Dizziness Verified 08/05/25 09:36 nalbuphine (From Nubain) AdvReac Severe Unknown Verified 08/05/25 09:36 Exam Constitutional Documenting provider has reviewed patient's vital signs: yes Common normals: no apparent distress, oriented x3 and alert General appearance: cooperative HENMT Common normals: normocephalic, hearing grossly normal bilaterally and moist oral mucous membranes Head and scalp: normocephalic Eye Common normals: PERRL Pupil: PERRL Neck & C-Spine Common normals: full ROM General: normal visual inspection Chest Common normals: inspection of chest normal Respiratory Common normals: normal respiratory effort, no retractions and no use of accessory muscles Back & Pelvis Other: right sij positive kirill(patricks), gaenslens, thigh thrust, compression test Extremity Right lower extremity: hip joint Other: moderate pain over right GTB mild pain with internal/external rotation of right hip Neuro Common normals: oriented x3 Sensorium/orientation: alert Psych Common normals: mental status grossly normal, thought process normal, cooperative, affect normal, speech normal and activity/motor behavior normal Speech: normal speech Thought process: normal thought process Results Additional Findings Additional findings: If on a controlled substance or opioids, I have checked an [place] report on this patient and there are no aberrancies noted in the prescribing history.??If on a controlled substance or opioid a drug screen was completed and reviewed within the last year, and if there has not been a drug screen completed we ordered one today to monitor higher risk, state monitored pain medication use. As part of providing excellent, safe, comprehensive care, the following was completed at our patient's visit: 1. A medication reconciliation and review to ensure accurate knowledge of current/active medications, including asking our patients to inform us about any [id number] medications or herbal remedies/nutritional supplements/alternative remedies. 2. A review to specifically ensure our patients have had annual screening for screening for depression, screening for tobacco use, and screening for unhealthy alcohol use. For concerning screenings had a discussion with the patient, provided patient education, and recommended follow-up with primary care provider when appropriate. If patient noted with a risk of falling, they received education on strength, gait, and balance training to prevent future risk of falling. Portions of this note may have been carried over from the previous visit and updated as appropriate. Please note this office utilizes paper charting in addition to the electronic medical record. A list of current medications, vitals, and PMH is available there as the clinical staff outside of myself do not have access to [employer] charting during the clinic day operations. As part of providing quality comprehensive care the current medications, vitals, and PMH were reviewed in the paper chart. Assessment and Plan Assessment and Plan (1) Greater trochanteric bursitis of right hip: (2) Osteoarthritis of right hip: Qualifiers: Osteoarthritis type: primary Qualified Code(s): M16.11 - Unilateral primary osteoarthritis, right hip Plan The patient has had over 3 months of moderate to severe right hip pain with functional impairment and inadequate response to conservative care including NSAIDS (unless there are contraindication such as concurrent blood thinners), multiple oral or topical pain medications, and home exercise program/physical therapy.? Patient has completed >6 weeks of guided home exercise program and/or formal physical therapy program without relief of their symptoms.? I have reviewed the imaging of the right hip and no red flags were identified.? The imaging reveals radiographic findings consistent with moderate OA The Oswestry Disability Index was completed, and the patient scored a 32%.? right GTB injection with Dr Gonzalez refer to orthopedics for consideration of right hip replacement for pain/oa
== END 2025-08-14 13:39 | disposition home or self-care (01) ==
LOC: PM 13:39
PROVIDERS: PCP Nurse Practitioner; Visit Provider Nurse Practitioner
DX: M70.61 Trochanteric bursitis, right hip (principal); M16.11 Unilateral primary osteoarthritis, right hip
CPT/HCPCS: G0463